=== PATIENT | male | born 1955 ===

== ENCOUNTER 2025-02-03 14:34 | Emergency (ER) | payer MEDICARE, SELFPAY ==
[2025-02-03 14:40] VITALS: BP 127/82; PULSE 110; RESP 18; TEMP 36.6; O2SAT 95
--- NOTE | 2025-02-03 14:41 | ED_ITS ---
HPI - General Adult General Chief complaint: Skin/Abscess/Foreign Body Stated complaint: bleeding around gtube History of Present Illness HPI narrative: This is a 69-year-old male presenting to the ED for bleeding around his G-tube site. Patient has no complaints at this time. G-tube was placed due to a cervical injury. Exam Narrative: APPEARANCE: No apparent distress. Head: atraumatic. EYES: EOMI, NOSE: Atraumatic NECK: Trachea midline RESPIRATORY: No increased rate of breathing CARDIOVASCULAR: RRR, ABDOMINAL: Soft nontender with no guarding or rebound -G-tube in place with very minimal red blood around the base. No active bleeding. MUSCULOSKELETAl: No obvious deformities NEURO: Alert. Moving 4/4 extremities SKIN:: Warm, dry. Normal color PSYCHIATRIC: Normal affect Medical Decision Making MDM Narrative Medical decision making narrative: -Course: 69-year-old male presenting for scant bleeding around his PEG tube insertion site. Wound was cleaned. No active bleeding. G-tube is flushed and working appropriately. No blood aspirated from the tube. Patient be discharged back to skilled nursing. Discharge Plan Discharge Clinical Impression: Gastrostomy tube in place Patient Disposition: Home Condition: Stable Instructions: Antibiotic Form, How to Use and Care for Your PEG Tube (DC) Additional Instructions: Scooby's G-tube is working appropriately. Minor bleeding is expected after gtube insertion. Please return to the ED if he develops worsening bleeding, coffee ground emesis, or sever abdominal pain. Patient Language: Japanese
--- NOTE | 2025-02-03 14:58 | PC.NURSE ---
Gtube flushed with 60ml of water without difficulty. No blood noted in contents aspirated
--- OUTSIDE RECORDS SUMMARY | 2025-02-03 15:00 | XMS_ITS | Referral Summary ---
Author Organization [facility] [address] [place] [id number] Care Team Providers Care Meter Tester Polyphase Name Role Phone Nicole Garcia NP Primary Care Provider [phone] Encounters Date Type Department Care Team Description 11/07/2024 10:30 AM MEDICAL COLLECTIONS REPRESENTATIVE Office Visit [facility] Diabetes and Endocrinology [address] [place] [id number] Tiffani Sen NP Type 2 diabetes mellitus with hyperglycemia, with long-term current use of insulin (HCC) (Primary Dx); Hypertension associated with type 2 diabetes mellitus (HCC); Hyperlipidemia associated with type 2 diabetes mellitus (HCC) from Last 3 Months Allergies No known active allergies Medications atorvastatin (LIPITOR) 40 mg tablet Take 1 tablet (40 mg total) by mouth every other day 4 Active lisinopriL (PRINIVIL,ZESTRI L) 5 mg tablet Take 1 tablet (5 mg total) by mouth daily 4 Active metoprolol XL (TOPROL-XL) 25 mg extended release tablet Take 1 tablet (25 mg total) by mouth daily [address] (PROTONIX) 40 mg EC tablet Take 1 tablet (40 mg total) by mouth daily 4 Active silver sulfadiazine (SILVADENE, SSD) 1 % cream Apply topically 2 (two) times a day 4 Active metFORMIN (GLUCOPHAGE) 1,000 mg tabletIndication s:Type 2 diabetes mellitus with hyperglycemia, with long-term current use of insulin (HCC) Take 1 tablet (1,000 mg total) by mouth 2 (two) times a day with meals 180 tablet 3 4 05/03/20 25 Active Additional Information Patient taking differently:1,000 mg oralDaily with breakfast, Reported on 11/07/2024 insulin glargine 100 unit/mL (3 mL) pen for injectionIndicat ions:Type 2 diabetes mellitus with hyperglycemia, with long-term current use of insulin (HCC) Inject 30 Units under the skin brush painter before breakfast 30 mL 3 4 05/03/20 Active insulin lispro (HumaLOG) 100 unit/mL pen for injectionIndicat ions:type 2 diabetes mellitus Inject 8-14 Units under the skin 2 (two) times a day before breakfast and dinner 30 mL 3 4 05/03/20 Active Additional Information Patient not taking.Reported on 11/07/2024 aspirin 81 mg enteric coated tablet Take 1 tablet (81 mg total) by mouth daily 4 Active glimepiride (AMARYL) 2 mg tablet Take 1 tablet (2 mg total) by mouth 4 Active pioglitazone (ACTOS) 30 mg tablet Take 1 tablet (30 mg total) by mouth daily 4 Active Active Problems Problem Noted Date Diagnosed Date Mixed conductive and sensori neural hearing loss of both ears 08/08/2024 External ear canal stenosis, acquired, bilateral 08/08/2024 Hypertension associated with type 2 diabetes tammie rezaus 05/03/2024 Assessment & Plan (11/07/2024 10:22 AM MEDICAL COLLECTIONS REPRESENTATIVE): Chronic problem. Controlled on current metoprolol XL 25mg daily. Assessment & Plan (07/25/2024 10:25 AM CDT): Chronic problem. Controlled on current metoprolol XL 25mg daily. Assessment & Plan (05/03/2024 11:01 AM CDT): Chronic problem. Controlled on current metoprolol XL 25mg daily. Will update labs today. Does not mychart. Verified phone #/address to contact re: results. Hyperlipidemia associated with type 2 diabetes sukhjinder elicia 05/03/2024 Assessment & Plan (11/07/2024 10:22 AM MEDICAL COLLECTIONS REPRESENTATIVE): Chronic problem. Currently taking atorvastatin 40mg every other day. Last lipid panel: 05/03/24 LDL=44, ID=[id number]. Assessment & Plan (07/25/2024 10:26 AM CDT): Chronic problem. Currently taking atorvastatin 40mg every other day. Last lipid panel: 05/03/24 LDL=44, XF=157. Assessment & Plan (05/03/2024 11:34 AM CDT): Chronic problem. Currently taking atorvastatin 40mg every other day. Last lipid panel: 03/31/23 LDL=20, IZ=923. Will update labs today. Does not mychart. Verified phone #/address to contact re: results. Type 2 diabetes mellitus wit h hyperglycemia, with long-term current use of insulin 01/19/2024 Assessment & Plan (11/07/2024 11:08 AM MEDICAL COLLECTIONS REPRESENTATIVE): Chronic problem. A1c uncontrolled and worsened from 9.8% 07/25/24 to now 12.9%. Afraid of lows--we'll drop down the insulin & sliding scale so he'll actually start using it again. Aware he needs to take the Humalog with meals. Take metformin TWICE daily Current medications: Metformin 1000mg with breakfast & dinner Glimepiride 2mg with breakfast Pioglitazone 30mg daily Lantus 30 units every morning Humalog 6 units before meals If your blood sugars are over 200: take 8 units If your blood sugars over 300: take 10 units DM eye due. Has never had. To call to set up. UTD on labs. Discussed with Scooby Blair: Strive for regular exercise (30min most days) and diet (get at least 4-5 servings of fruit and veggies daily, avoid processed foods, increase lean protein intake and decrease carb portions as well as fruit juices, regular soda & desserts). Watch carbs and simple sugars. Check the blood sugar: 3x/day. Check the feet daily for skin breakdown and infection. Assessment & Plan (07/25/2024 11:13 AM CDT): Chronic problem. A1c uncontrolled but improved from 12.8% 05/03/24 to now 9.8%. -go back to taking Metformin with breakfast & dinner -start using below scale for meal time (check blood sugar BEFORE eating & give appropriate insulin below). Current medications: Metformin 1000mg with breakfast & dinner Lantus 30 units every morning Humalog 8 units before breakfast & dinner If your blood sugars are over 200: take 12 units If your blood sugars over 300: take 14 units DM eye due. Has never had. To call to set up. UTD on labs. Discussed with Scooby Blair: Strive for regular exercise (30min most days) and diet (get at least 4-5 servings of fruit and veggies daily, avoid processed foods, increase lean protein intake and decrease carb portions as well as fruit juices, regular soda & desserts). Watch carbs and simple sugars. Check the blood sugar: 3x/day. Check the feet daily for skin breakdown and infection. Assessment & Plan (05/03/2024 11:42 AM CDT): Chronic problem. A1c uncontrolled but improved slightly from 13.7% 01/19/24 to now 12.8%. has not been taking meds according to Dr Tanner's MARLEN. Detailed instructions given on AVS. Do not take: actos/pioglitazone, Bydureon, glimepride. Lantus: take 30 units every morning (long acting) Humalog (short acting): take with breakfast & dinner. Check your blood sugar before you eat breakfast & dinner. Use sliding scale below. Current medications: Metformin 1000mg with breakfast & dinner Lantus 30 units every morning Humalog 8 units before breakfast & dinner If your blood sugars are over 200: take 12 units If your blood sugars over 300: take 14 units DM eye due. Has never had. To call to set up. Will update labs today. Does not mychart. Verified phone #/address to contact re: results. Discussed with Scooby Blair: Strive for regular exercise (30min most days) and diet (get at least 4-5 servings of fruit and veggies daily, avoid processed foods, increase lean protein intake and decrease carb portions as well as fruit juices, regular soda & desserts). Watch carbs and simple sugars. Check the blood sugar: 3x/day. Check the feet daily for skin breakdown and infection. Assessment & Plan (01/19/2024 1:06 PM CDT): Hba1c was Lab Results Component Value Date HGBA1C 13.7 01/19/2024 today, indicating very poor DM control Goal Hba1c under 7 and blood glucose level in the 120-160 range was explained Low carb diet and daily aerobic and /or resistant exercise were advised Prevention and treatment of hyypoglcyemia were discussed with the patient Blood glucose monitoring : Would recommend start CGM with Dexcom G7. The patient is very reluctant about he agrees on taking a trial. He was provided with sensors and a reader Adjustment to medications: Stopped Actos, glimepiride and Bydureon Continue metformin Increase Lantus insulin to 30 units HS Start Humalog ( meal time insulin,) 8 units before breakfast and dinner If your sugars are over 200, take 12 units If your sugars are over 300, take 14 units Patient advised to call in 1 or 2 weeks to let us know how he is doing with this regimen Social History Tobacco Use Types Packs/Day Years Used Date Smoking Tobacco: Never Smokeless Tobacco: Never Sex and Gender Information Value Date Recorded Sex Assigned at Not on file Legal Sex Male 11:20 PM MEDICAL COLLECTIONS REPRESENTATIVE Gender Identity Not on file Sexual Orientation Not on file Last Filed Vital Signs Vital Sign Reading Time Taken Comments Blood Pressure 122/84 11/07/2024 10:16 AM MEDICAL COLLECTIONS REPRESENTATIVE Pulse 80 11/07/2024 10:16 AM MEDICAL COLLECTIONS REPRESENTATIVE Temperature - - Respiratory Rate 18 11/07/2024 10:16 AM MEDICAL COLLECTIONS REPRESENTATIVE Oxygen Saturation - - Inhaled Oxygen Concentration - - Weight 93 kg (205 lb) 11/07/2024 10:16 AM MEDICAL COLLECTIONS REPRESENTATIVE Height 180.3 cm (5' 10.98 ) 11/07/2024 10:16 AM MEDICAL COLLECTIONS REPRESENTATIVE Body Mass Index 28.6 11/07/2024 10:16 AM MEDICAL COLLECTIONS REPRESENTATIVE Plan of Treatment Not on file Procedures Procedure Name Priority Date/Time Associated Diagnosis Comments POCT GLUCOSE Routine 11/07/2024 10:27 AM MEDICAL COLLECTIONS REPRESENTATIVE Type 2 diabetes mellitus with hyperglycemia, with long-term current use of insulin (HCC) POCT HEMOGLOBIN A1C Routine 11/07/2024 1 0:27 AM MEDICAL COLLECTIONS REPRESENTATIVE Type 2 diabetes mellitus with hyperglycemia, with long-term current use of insulin (HCC) LIPID PANEL Routine 05/03/2024 11:50 AM CDT Type 2 diabetes mellitus with hyperglycemia, with long-term current use of insulin (HCC) ALBUMIN CREATININE RATIO, URINE Routine 05/03/2024 11:50 AM CDT Type 2 diabetes mellitus with hyperglycemia, with long-term current use of insulin ([facility]) BASIC METABOLIC PANEL Routine 12/02/2023 10:40 AM MEDICAL COLLECTIONS REPRESENTATIVE from Last 3 Months or Most Recently Relevant to Health Maintenance Results * (ABNORMAL) POCT hemoglobin A1c (11/07/2024 10:27 AM MEDICAL COLLECTIONS REPRESENTATIVE) Hemoglobin A1C, POC 12.9 4.0 - 5.6 % Blood 11/07/2024 10:2 7 AM MEDICAL COLLECTIONS REPRESENTATIVE Tiffain Sen DEBURRING AND TOOLING MACHINE OPERATOR POINT OF CARE TEST ORDERA BLES Final Result * (ABNORMAL) POCT glucose (11/07/2024 10:27 AM MEDICAL COLLECTIONS REPRESENTATIVE) Glucose Blood, POC 394 mg/dL Blood 11/07/2024 10:2 7 AM MEDICAL COLLECTIONS REPRESENTATIVE Tiffani Sen NP POINT OF CARE TEST ORDERA BLES Final Result * (ABNORMAL) Albumin Creatinine Ratio, Urine (05/03/2024 11:50 AM CDT) Albumin Ur 130.8 mg/L Comment: Interpretive Data No reference range established. Current interpretive data was last revised 2019. Creatinine Ur 145.2 mg/dL CORRINE Comment: Interpretive Data No reference range established. Current interpretive data was last revised 2019. Albumin Creatinine Ratio, Ur 90(H) 1 - 29 mg/g CORRINE Urine 05/03/2024 11:5 0 AM CDT 05/03/2024 2:04 PM CDT us Tiffani Sen NP LAB URINE ORDERABLES Lola cain Result CORRINE RHOADES [id number] [place] [address] * (ABNORMAL) Lipid panel (05/03/2024 11:50 AM CDT) Cholesterol 132 30 - 199 mg/dL Comment: Interpretive Data Ages < or = 19 years Acceptable: <170 mg/dL Borderline high: 170-199 mg/dL High: >or= 200 mg/dL Ages > or = 20 years Desirable: <200 mg/dL Borderline high: 200-239 mg/dL High: >or= 240 mg/dL Literature References: 1. Expert Panel on Integrated Guidelines for Cardiovascular Health and Risk Reduction in Children and Adolescents. Pediatrics 2011;128:S213 2. NCEP Expert Panel. Circulation 2004;110:227 Current Interpretive Data was last revised on 2018. Triglycerides 218(H) <=149 mg/dL CORRINE RHOADES Comment: Interpretive Data Ages < or = 9 years Acceptable: <75 mg/dL Borderline high: 75-99 mg/dL High: >or= 100 mg/dL Ages 10 to 20 years Acceptable: <90 mg/dL Borderline high: 90-129 mg/dL High: >or= 130 mg/dL Ages > or = 20 years Desirable: <150 mg/dL Borderline high: 150-199 mg/dL High: 200-499 mg/dL Very high: >or= 499 mg/dL Literature References: 1. Expert Panel on Integrated Guidelines for Cardiovascular Health and Risk Reduction in Children and Adolescents. Pediatrics 2011;128:S213 2. NCEP Expert Panel. Circulation 2004;110:227 Current Interpretive Data was last revised on 2018. HDL 44 >=40 mg/dL CORRINE RHOADES Comment: Interpretive Data Ages < or = 19 years Acceptable: >45 mg/dL Borderline low: 40-45 mg/dL Low: <40 mg/dL Ages > or = 20 years Desirable: >or= 60 mg/dL Low: <40 mg/dL Literature References: 1. Expert Panel on Integrated Guidelines for Cardiovascular Health and Risk Reduction in Children and Adolescents. Pediatrics 2011;128:S213 2. NCEP Expert Panel. Circulation 2004;110:227 Current Interpretive Data was last revised on 2018. LDL, calculated 44 <=129 mg/dL CORRINE RHOADES Comment: Interpretive Data Ages < or = 19 years Acceptable: <110 mg/dL Borderline high: 110-129 mg/dL High: >or= 130 mg/dL Ages > or = 20 years Optimal: <100 mg/dL Near optimal: 100-129 mg/dL Borderline high: 130-159 mg/dL High: >160 mg/dL Literature References: 1. Expert Panel on Integrated Guidelines for Cardiovascular Health and Risk Reduction in Children and Adolescents. Pediatrics 2011;128:S213 2. NCEP Expert Panel. Circulation 2004;110:227 Current Interpretive Data was last revised on 2018. Non-HDL Cholesterol 88 mg/dL CORRINE RHOADES Comment: Interpretive Data Ages < or = 19 years Acceptable: <120 mg/dL Borderline high: 120-144 mg/dL High: >145 mg/dL Ages > or = 20 years When triglycerides are >200 mg/dL, Non-HDL cholesterol is a secondary target of therapy with treatment goals that are 30 mg/dL greater than the LDL cholesterol target. Literature References: 1. Expert Panel on Integrated Guidelines for Cardiovascular Health and Risk Reduction in Children and Adolescents. Pediatrics 2011;128:S213 2. NCEP Expert Panel. Circulation 2004;110:227 Current Interpretive Data was last revised on 2018. Chol/HDL ratio 3 CORRINE RHOADES Blood 05/03/2024 11:5 0 AM CDT 05/03/2024 2:01 PM CDT us Tiffani Sen DEBURRING AND TOOLING MACHINE OPERATOR LAB BLOOD ORDERABLES Lola l Result CORRINE RHOADES [id number] [place] [address] * (ABNORMAL) Basic metabolic panel (12/02/2023 10:40 AM MEDICAL COLLECTIONS REPRESENTATIVE) SCRIBED Sodium 138 136 - 145 mmol/L EXTERNAL LAB SCRIBED Potassium 4.5 3.5 - 5.1 mmol/L EXTERNAL LAB SCRIBED Chloride 101 10 - 108 mmol/L EXTERNAL LAB SCRIBED Carbon Dioxide 24.8 21.0 - 32.0 mmol/L EXTERNAL LAB SCRIBED Anion Gap 12.2 5.0 - 15.0 mmol/L EXTERNAL LAB SCRIBED Urea Nitrogen (BUN) 22(A) 7 - 18 mg/dl EXTERNAL LAB SCRIBED Creatinine 1.52(A) 0.50 - 1.20 mg/dl EXTERNAL LAB SCRIBED Glucose 368(A) 70 - 99 mg/dl EXTERNAL LAB SCRIBED Calcium 9.8 8.5 - 10.1 mg/dl EXTERNAL LAB SCRIBED eGFR in NonAfrican Norwegian 50 >90 - NA EXTERNAL LAB Blood 12/02/2023 10:4 0 AM MEDICAL COLLECTIONS REPRESENTATIVE us Historical Provider LAB BLOOD ORDERABLES Edit ed Result - Final EXTERNAL LAB from Last 3 Months or Most Recently Relevant to Health Maintenance Insurance [employer] Care Teams Meter Tester Polyphase Relationship Specialty Start Date End Date Nicole Garcia NP [address] [place] [address] [place] [address] PCP - General Family Practice 11/10/23
--- OUTSIDE RECORDS SUMMARY | 2025-02-03 15:00 | XMS_ITS | Clinical Summary ---
Author Organization [facility] [address] [place] [id number] Care Team Providers Care Explosive Ordnance Disposal Specialist Name Role Phone Nicole Garcia NP Primary Care Provider [phone] Allergies No known active allergies Medications atorvastatin [...] (HCC) Inject 30 Units under the skin dog track kennel manager before breakfast 30 mL 3 4 05/03/20 25 Active insulin lispro (HumaLOG) 100 unit/mL pen [...] Hypertension associated with type 2 diabetes tammie litus 05/03/2024 Assessment & Plan (11/07/2024 10:22 AM ARCHITECTURAL INSPECTOR): Chronic problem. Controlled on current metoprolol XL 25mg daily. Assessment & Plan (07/25/2024 10:25 AM CDT): Chronic problem. Controlled on current metoprolol XL 25mg daily. Assessment & Plan (05/03/2024 11:01 AM CDT): Chronic problem. Controlled on current metoprolol XL 25mg daily. Will update labs today. Does not mychart. Verified phone #/address to contact re: results. Hyperlipidemia associated with type 2 diabetes sukhjinder rubi 05/03/2024 Assessment & Plan (11/07/2024 10:22 AM ARCHITECTURAL INSPECTOR): Chronic problem. Currently taking atorvastatin 40mg every other day. Last lipid panel: 05/03/24 LDL=44, MR=600. Assessment & Plan (07/25/2024 10:26 AM CDT): Chronic problem. Currently taking atorvastatin 40mg every other day. Last lipid panel: 05/03/24 LDL=44, KM=874. Assessment & Plan (05/03/2024 11:34 AM CDT): Chronic problem. Currently taking atorvastatin 40mg every other day. Last lipid panel: 03/31/23 LDL=20, ID=[id number]. Will update labs today. Does not mychart. Verified phone #/address to contact re: results. Type 2 diabetes mellitus wit h hyperglycemia, with long-term current use of insulin 01/19/2024 Assessment & Plan (11/07/2024 11:08 AM ARCHITECTURAL INSPECTOR): Chronic problem. A1c uncontrolled and worsened from [...] how he is doing with this regimen Encounters Date Type Department Care Team Description 11/07/2024 10:30 AM ARCHITECTURAL INSPECTOR Office Visit [facility] Diabetes and Endocrinology [address] [place] [id number] Tiffani Sen, [place] Type 2 diabetes mellitus with hyperglycemia, with long-term current use of insulin (HCC) (Primary Dx); Hypertension associated with type 2 diabetes mellitus (HCC); Hyperlipidemia associated with type 2 diabetes mellitus (HCC) from Last 3 Months Surgical History Surgery Date Site/Laterality Comments ANKLE SURGERY LEG SURGERY HEART SURGERY CABG x4 Medical History Medical History Date Comments Diabetes (HCC) Hypertension Hyperlipidemia HL (hearing loss) Family History Medical History Relation Name Comments Diabetes Other uncle Diabetes Sister Relation Name Status Comments Other uncle Sister Social History Tobacco Use Types Packs/Day Years Used Date Smoking Tobacco: Never Smokeless Tobacco: Never Sex and Gender Information Value Date Recorded Sex Assigned at Not on file Legal Sex Male 11:20 PM ARCHITECTURAL INSPECTOR Gender Identity Not on file Sexual Orientation Not on file Obstetrics History Last Filed Vital Signs Vital Sign Reading Time Taken Comments Blood Pressure 122/84 11/07/2024 10:16 AM ARCHITECTURAL INSPECTOR Pulse 80 11/07/2024 10:16 AM ARCHITECTURAL INSPECTOR Temperature - - Respiratory Rate 18 11/07/2024 10:16 AM ARCHITECTURAL INSPECTOR Oxygen Saturation - - Inhaled Oxygen Concentration - - Weight 93 kg (205 lb) 11/07/2024 10:16 AM ARCHITECTURAL INSPECTOR Height 180.3 cm (5' 10.98 ) 11/07/2024 10:16 AM ARCHITECTURAL INSPECTOR Body Mass Index 28.6 11/07/2024 10:16 AM ARCHITECTURAL INSPECTOR Plan of Treatment Health Maintenance Due Date Last Done Comments Colon Cancer Screening-Colonoscopy 1956 Depression Screening 1956 Fall Risk Assessment 1956 Hepatitis C Screening 1956 Prostate Cancer Screening-PSA 1956 Dilated Eye Exam 1956 Hepatitis B Screening 1974 Pneumococcal vaccine 65+ (1 of 2 - PCV) 1975 Zoster Vaccine (1 of 2) 2006 Well Visit 65+ 2021 eGFR 12/02/2024 12/02/2023 Albumin Creatinine Ratio, Urine 05/03/2025 Foot Exam 05/03/2025 05/03/2024 Lipid Panel 05/03/2025 05/03/2024, 03/31/2023 Hemoglobin A1C 05/07/2025 11/07/2024, 1010/2023, 05/03/2024, Additional history exists Influenza Vaccine (Season Ended) 2025 08/09/20 18 DTaP/Tdap/Td Vaccine (2 - Td or Tdap) 03/30/2029 03/30/2019 Procedures Procedure Name Priority Date/Time Associated Diagnosis Comments POCT GLUCOSE Routine 11/07/2024 10:27 AM ARCHITECTURAL INSPECTOR Type 2 diabetes mellitus with hyperglycemia, with long-term current use of insulin (HCC) POCT HEMOGLOBIN A1C Routine 11/07/2024 1 0:27 AM ARCHITECTURAL INSPECTOR Type 2 diabetes mellitus with hyperglycemia, with long-term current use of insulin (HCC) LIPID PANEL Routine 05/03/2024 11:50 AM CDT Type 2 diabetes mellitus with hyperglycemia, with long-term current use of insulin (HCC) ALBUMIN CREATININE RATIO, URINE Routine 05/03/2024 11:50 AM CDT Type 2 diabetes mellitus with hyperglycemia, with long-term current use of insulin (HCC) BASIC METABOLIC PANEL Routine 12/02/2023 10:40 AM ARCHITECTURAL INSPECTOR from Last 3 Months or Most Recently Relevant to Health Maintenance Results * (ABNORMAL) POCT hemoglobin A1c (11/07/2024 10:27 AM ARCHITECTURAL INSPECTOR) [facility] Hemoglobin A1C, POC 12.9 4.0 - 5.6 % Blood 11/07/2024 10:2 7 AM ARCHITECTURAL INSPECTOR Tiffanichelle Sen MEDICAL ANTHROPOLOGY DIRECTOR POINT OF CARE TEST ORDERA BLES Final Result * (ABNORMAL) POCT glucose (11/07/2024 10:27 AM ARCHITECTURAL INSPECTOR) Glucose Blood, POC 394 mg/dL Blood 11/07/2024 10:2 7 AM ARCHITECTURAL INSPECTOR us Tiffanichelle Sen MEDICAL ANTHROPOLOGY DIRECTOR POINT OF CARE TEST ORDERA BLES Final Result * (ABNORMAL) Albumin Creatinine Ratio, Urine (05/03/2024 11:50 AM CDT) Albumin Ur 130.8 mg/L Comment: Interpretive Data No reference range established. Current interpretive data was last revised 2019. Creatinine Ur 145.2 mg/dL CORRINE RHOADES Comment: Interpretive Data No reference range established. Current interpretive data was last revised 2019. Albumin Creatinine Ratio, Ur 90(H) 1 - 29 mg/g CORRINE RHOADES Urine 05/03/2024 11:5 0 AM CDT 05/03/2024 2:04 PM CDT us Tiffani Sen NP LAB URINE ORDERABLES Lola l Result CORRINE [id number] [facility] [place] [address] * (ABNORMAL) Lipid panel (05/03/2024 11:50 AM [...] on 2018. Triglycerides 218(H) <=149 mg/dL CORRINE Comment: Interpretive Data Ages < or = [...] 05/03/2024 2:01 PM CDT us Tiffani Sen NP LAB BLOOD ORDERABLES Lola cain Result CORRINE [address] [facility] [place] [address] * (ABNORMAL) Basic metabolic panel (12/02/2023 10:40 AM ARCHITECTURAL INSPECTOR) SCRIBED Sodium 138 136 - 145 mmol/L [...] mg/dl EXTERNAL LAB SCRIBED eGFR in NonAfrican French 50 >90 - NA EXTERNAL LAB Blood 12/02/2023 10:4 0 AM ARCHITECTURAL INSPECTOR us Historical Provider LAB BLOOD ORDERABLES Edit ed Result - Final EXTERNAL LAB from Last 3 Months or Most Recently Relevant to Health Maintenance Insurance [facility] MEDICARE ADVANTAGE [facility] MEDICARE ADVANTAGE Care Teams Explosive Ordnance Disposal Specialist Relationship Specialty Start Date End Date Nicole Garcia NP [address] [place] [address] [place] [address] PCP - General Family Practice 11/10/23
--- OUTSIDE RECORDS SUMMARY | 2025-02-03 15:01 | XMS_ITS | Encounter Summary ---
Author Organization [facility] Address Formerly [facility] [place] [address] Care Team Providers Care Trackman Name Role Phone Adolfo Koo MD Unavailable [phone] Nicole Garcia LAP MAKER Primary Care Provider [phone] Reason for Referral * Surgical (Routine) - Closed Specialty Diagnoses / Procedures Referred By Contac t Referred To Contact SURGERY Diagnoses Encounter for screening for malignant neoplasm of colon Screening for malignany neoplasm of colon Procedures Case request operating room: COLONOSCOPY DIAGNOSTIC WITH/WITHOUT SPECIMEN BRUSH/WASH, POSSIBLE POLYPECTOMY, POSSIBLE BIOPSY T/F 1ST CASE [id number] Colonoscopy Pasquale Hutchins MD [facility] [address] , [address] [place] [address] Phone: tel: fax: Referral ID Status Reason Start Date Expiration Date Visits Re quested Visits Authorized [id number] Closed 04/21/2022 05/21/2023 1 1 Encounter Details Date Type Department Care Team (Late st Contact Info) Description 04/21/2022 Prep for Procedure [facility] [address] [address] , [address] [place] [address] Pasquale Hutchins MD Social History Tobacco Use Types Packs/Day Years Used Date Smoking Tobacco: Former Cigarettes 1 969 - 1969 Smokeless Tobacco: Never Alcohol Use Standard Drinks/Week Comments Yes 0 (1 standard drink = 0.6 oz pur e alcohol) 6 week PHQ-2 Answer Date Recorded PHQ-2 Score - If the patient scores above 3, please move on to questions 3-9 0 04/01/2022 Sex and Gender Information Value Date Recorded Sex Assigned at Male 01/19/2025 7:45 PM CDT Legal Sex Male 5:01 PM CDT Gender Identity Not on file Sexual Orientation Not on file 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 No / Unsure 04/01/2022 9:42 AM CDT documented as of this encounter Plan of Treatment Upcoming Encounters Date Type Department Care Team (Late st Contact Info) Description 02/08/2025 9:00 AM CDT Office Visit [facility] - [address] [place] [phone] Devan Henderson, DPM [address] [place] [address] 04/03/2025 10:20 AM CDT Office Visit [address] [place] [address] Nicole Garcia [address] [place] [address] 05/11/2025 10:00 AM CDT Office Visit [facility] [address] [place] [address] Sorin Ram MD [address] [facility] [address] [address] Scheduled Orders Name Type Priority Associated Diagnoses Orde r Schedule Case request operating room: COLONOSCOPY DIAGNOSTIC WITH/WITHOUT SPECIMEN BRUSH/WASH, POSSIBLE POLYPECTOMY, POSSIBLE BIOPSY T/F 1ST CASE Case Request Routine Encounter for screening for malignant neoplasm of colon Ordered: 04/21/2022 [facility] SARS-COV RNA QUAL NAAT Microbiology Routine Encounter for screening for malignant neoplasm of colon Expected: 04/21/2022, Expires: 04/21/2023 documented as of this encounter Visit Diagnoses Diagnosis Encounter for screening for malignant neoplasm of colon- Primary Special screening for malignant neoplasms, colon Pre-op testing Preoperative examination, unspecified documented in this encounter Additional Health Concerns Infection Onset Date Last Indicated Resolved Time COVID-19 Rule Out 04/21/2022 04/21/2022 04/28/2022 12:32 AM CDT Assessment Noted Time PHQ-9 Depression Total Score: 0 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
--- OUTSIDE RECORDS SUMMARY | 2025-02-03 15:01 | XMS_ITS | Encounter Summary ---
Author Organization [facility] Address Formerly [facility] [place] [address] Care Team Providers Care Tire Room Supervisor Name Role Phone Adolfo Koo MD Unavailable [phone] Nicole Garcia CREDIT AND COLLECTION MANAGER Primary Care Provider [phone] Reason for Referral * (Routine) - Canceled Specialty Diagnoses / Procedures Referred By Contac t Referred To Contact Procedures DIRECTOR OF MEDICARE eval and treat Ludwig Saucedo MD 1 [place] [address] Phone: tel: fax: Referral ID Status Reason Start Date Expiration Date V isits Requested Visits Authorized [id number] Canceled 02/01/2025 02/01/2026 1 1 * Imaging (Urgent) - New Request Specialty Diagnoses / Procedures Referred By Contac t Referred To Contact Procedures IR PERC HUI CATH PLCMNT Naya Gonzalez MD 1 [place] [address] Phone: tel: fax: Referral ID Status Reason Start Date Expiration Date V isits Requested Visits Authorized [id number] New Request 01/25/2025 01/25/2026 1 1 * Imaging (Emergency) - New Request Specialty Diagnoses / Procedures Referred By Contac t Referred To Contact RADIOLOGY Procedures CT HEAD WO CON Robin Sharma NP [address] [address] Phone: tel: fax: Referral ID Status Reason Start Date Expiration Date V isits Requested Visits Authorized [id number] New Request 01/24/2025 01/24/2026 1 1 * (Routine) - Canceled Specialty Diagnoses / Procedures Referred By Contac t Referred To Contact Procedures DIRECTOR OF MEDICARE eval and treat Renee Hannon PA-C [address] [place] [phone] Phone: tel: fax: Referral ID Status Reason Start Date Expiration Date V isits Requested Visits Authorized [id number] Canceled 01/20/2025 01/20/2026 1 1 * Imaging (Urgent) - New Request Specialty Diagnoses / Procedures Referred By Contac t Referred To Contact RADIOLOGY Procedures MRI CERV SPINE WO CON Obinna Gibbs MD [address] [place] [phone] Phone: tel: fax: Referral ID Status Reason Start Date Expiration Date V isits Requested Visits Authorized New Request 01/20/2025 01/20/2026 1 1 * Imaging (Urgent) - New Request Specialty Diagnoses / Procedures Referred By Contac t Referred To Contact RADIOLOGY Procedures MRI BRAIN WO CON Obinna Gibbs MD [address] [place] [phone] Phone: tel: fax: Referral ID Status Reason Start Date Expiration Date V isits Requested Visits Authorized New Request 01/20/2025 01/20/2026 1 1 * Imaging (Emergency) - New Request Specialty Diagnoses / Procedures Referred By Contac t Referred To Contact RADIOLOGY Procedures USE ECHOCARDIOGRAM Renee Hannon PA-C [address] [address] Phone: tel: fax: Referral ID Status Reason Start Date Expiration Date V isits Requested Visits Authorized New Request 01/20/2025 01/20/2026 1 1 * Imaging (Emergency) - New Request Specialty Diagnoses / Procedures Referred By Contac t Referred To Contact RADIOLOGY Procedures CT HEAD WO CON Renee Hannon PA-C [address] [place] [phone] Phone: tel: fax: Referral ID Status Reason Start Date Expiration Date V isits Requested Visits Authorized New Request 01/20/2025 01/20/2026 1 1 * Imaging (Emergency) - New Request Specialty Diagnoses / Procedures Referred By Contac t Referred To Contact RADIOLOGY Procedures CTA HEAD+NECK Renee Hannon PA-C [address] [place] [phone] Phone: tel: fax: Referral ID Status Reason Start Date Expiration Date V isits Requested Visits Authorized [id number] New Request 01/20/2025 01/20/2026 1 1 * Imaging (Emergency) - New Request Specialty Diagnoses / Procedures Referred By Contac t Referred To Contact RADIOLOGY Procedures CT CHEST+ABD+PEL W CON Romulo German MD [address] [address] Phone: tel: fax: Referral ID Status Reason Start Date Expiration Date V isits Requested Visits Authorized New Request 01/19/2025 01/19/2026 1 1 * Imaging (Emergency) - New Request Specialty Diagnoses / Procedures Referred By Contac t Referred To Contact RADIOLOGY Procedures CTA NECK Romulo German MD [address] [address] Phone: tel: fax: Referral ID Status Reason Start Date Expiration Date V isits Requested Visits Authorized New Request 01/19/2025 01/19/2026 1 1 * (Routine) - Canceled Specialty Diagnoses / Procedures Referred By Contac t Referred To Contact Procedures OT eval and treat Phylicia Howard NP [address] [place] [address] Phone: tel: fax: Referral ID Status Reason Start Date Expiration Date V isits Requested Visits Authorized Canceled 01/19/2025 01/19/2026 1 1 * (Routine) - Canceled Specialty Diagnoses / Procedures Referred By Contac t Referred To Contact Procedures PT eval and treat Phylicia Howard NP [address] [place] [address] Phone: tel: fax: Referral ID Status Reason Start Date Expiration Date V isits Requested Visits Authorized Canceled 01/19/2025 01/19/2026 1 1 Reason for Visit * Reason Comments Trauma * Auth/Cert (Routine) Specialty Diagnoses / Procedures Referred By Contac t Referred To Contact Diagnoses Fall C2 cervical fracture ([facility]) Closed C2 fracture ([facility]) FALL Procedures N/A Phylicia Howard NP [address] [place] [address] Phone: tel: fax: Referral ID Status Reason Start Date Expiration Date Visits Re quested Visits Authorized [id number] 1 1 Encounter Details Date Type Department Care Team (Latest Contact Info) Description 01/19/2025 7:05 PM CDT - 02/02/2025 2:33 PM CDT Hospital Encounter [facility] [address] [place] [address] Pio Brown MD [address] [place] [address] Phylicia Howard NP [address] [place], [place] [phone] Romulo German MD [address] [address] Sandra Ray, DO [address] [address] Emiliano Donaldson MD [address] [place] [phone] Naya Gonzalez MD 1 [place] [address] Devonte Kohler MD [address] [place] [address] Duy Stephenson MD 1 [place] [address] Ludwig Saucedo MD [address] [place] [address] Trauma Discharge Disposition: [facility] Facility Social History Tobacco Use Types Packs/Day Years Used Date Smoking Tobacco: Former Cigarettes 1969 Smokeless Tobacco: Never Alcohol Use Standard Drinks/Week Comments Not Currently 0 (1 standard drink = 0.6 oz pur e alcohol) quit before 2021 [facility] Utilities Answer Date Recorded In the past 12 months has e [employer], gas, oil, or water company threatened to shut off services in your home? No 01/21/2025 Humiliation, Afraid, Rape, and Kick questionnair e Answer Date Recorded Within the last year, have y ou been afraid of your partner or ex-partner? No 01/21/2025 Within the last year, have y ou been humiliated or emotionally abused in other ways by your partner or ex-partner? No Within the last year, have y ou been kicked, hit, slapped, or otherwise physically hurt by your partner or ex-partner? No 01/21/2025 Within the last year, have y ou been raped or forced to have any kind of sexual activity by your partner or ex-partner? No 01/21/2025 Overall Financial Resource Strain (CARDIA) Answe r Date Recorded How hard is it for you to pa y for the very basics like food, housing, medical care, and heating? Not hard at all 01/21/2025 PHQ-2 Answer Date Recorded Patient Health Questionnaire-2 Score 0 11/01/2024 Hunger Vital Sign Answer Date Recorded Within the past 12 months, y ou worried that your food would run out before you got the money to buy more. Never true 01/22/20 25 Within the past 12 months, t he food you bought just didn't last and you didn't have money to get more. Never true 01/21/2025 PRAPARE - Transportation Answer Date Re corded In the past 12 months, has l ack of transportation kept you from medical appointments or from getting medications? No 12/25 In the past 12 months, has l ack of transportation kept you from meetings, work, or from getting things needed for daily living? No 01/21/2025 Housing Stability Vital Sign Answer Ru e Recorded In the last 12 months, was t here a time when you were not able to pay the mortgage or rent on time? No 03/19/2023 In the last 12 months, how many places have you lived? 1 03/19/2023 In the last 12 months, was t here a time when you did not have a steady place to sleep or slept in a halfway (including now)? No 03/19/2023 Housing Stability Vital Sign Answer Ru e Recorded In the last 12 months, was t here a time when you were not able to pay the mortgage or rent on time? No 01/21/2025 In the past 12 months, how m any times have you moved where you were living? 0 01/21/2025 At any time in the past 12 m [facility], were you homeless or living in a halfway (including now)? 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 Not on file Not on file Not on file documented as of this encounter Last Filed Vital Signs Vital Sign Reading Time Taken Comments Blood Pressure 115/70 02/02/2025 11:18 AM CDT Pulse 91 02/02/2025 11:18 AM CDT Temperature 36.8 C (98.3 F) 02/02/2025 11:18 AM CDT Respiratory Rate 18 02/01/2025 3:39 AM CDT Oxygen Saturation 95% 02/02/2025 11:18 AM CDT Inhaled Oxygen Concentration - - Weight 85.4 kg (188 lb 4.4 oz) 01/27/2025 4:00 A M CDT Height 180.3 cm (5' 11 ) 01/19/2025 7:15 PM CDT Body Mass Index 26.26 01/19/2025 7:15 PM CDT documented in this encounter Functional Status * Question Answer Date of Assessment Author Status Do you have serious difficul ty walking or climbing stairs? No 01/19/2025 10:00 PM CDT Jayden Barrios RN Active * Question Answer Date of Assessment Author Status Do you have difficulty dressing or bathing? No 01/19/2025 10:00 PM CDT Jayden Barrios RN Ac tive Because of a physical, menta l, or emotional condition, do you have difficulty doing errands alone such as visiting a doctor's office or shopping? No 01/19/2025 10:00 PM CDT Kolton Barrios RN Active * Are you deaf or do you have serious difficulty hearing Answer Date of Assessment Author Status No 01/19/2025 10:00 PM DONTET Jayden Barrios RN Active * Are you blind or do you have serious difficulty seeing, even when wearing glasses? Answer Date of Assessment Author Status No 01/19/2025 10:00 PM DONTET Jayden Barrios RN Active * Do you have serious difficulty walking or climbing stairs? Answer Date of Assessment Author Status No 01/19/2025 10:00 PM DONTET Jayden Barrios RN Active * Do you have difficulty dressing or bathing? Answer Date of Assessment Author Status No 01/19/2025 10:00 PM CDT Jayden Barrios RN Active * Because of a physical, mental, or emotional condition, do you have difficulty doing errands alone such as visiting a doctor's office or shopping? Answer Date of Assessment Author Status No 01/19/2025 10:00 PM CDT Jayden Barrios RN Active documented as of this encounter Mental Status * Question Answer Entry Date Author Status Because of a physical, menta l, or emotional condition, do you have serious difficulty concentrating, remembering, or making decisions? No 01/19/2025 10:00 PM CDT Jayden Barrios RN Activ e * Because of a physical, mental, or emotional condition, do you have serious difficulty concentrating, remembering, or making decisions? Answer Entry Date Author Status No 01/19/2025 10:00 PM DONTET Jayden Barrios RN Active documented in this encounter Discharge Summaries * Ludwig Saucedo MD - 02/02/2025 10:21 AM CDT Patient ID: Олег Watson [id number] 69-year-old 1955 Admit date: 01/19/2025 Expected Discharge Date: 02/02/2025 Primary care Physician: DONNIE TIMMONS Admitting Physician: Devonte Kohler MD Discharge Physician: LUDWIG SAUCEDO MD Admission Diagnoses: Fall [W19.XXXA] C2 cervical fracture ([facility]) [S12.100A] Closed C2 fracture ([facility]) [S12.100A] Discharge Diagnoses: ischemic stroke Past Medical History Past Medical History: Diagnosis Date Acute myocardial infarction ([facility]) Ankle fracture Closed; fracture left fibula Chest pain Closed fracture of distal end of fibula 05/18/2013 Date Onset: 05/18/2013 Coronary artery disease Diabetes ([facility]) Diabetes mellitus, type 2 ([facility]) Diabetic ketoacidosis without coma associated with diabetes mellitus due to underlying condition ([facility]) 03/19/2023 DKA (diabetic ketoacidosis) ([facility]) 03/19/2023 Essential hypertension 07/26/2018 Eustachian tube dysfunction 06/13/2015 Date Onset: 06/13/2015 HLD (hyperlipidemia) Hx of CABG Microalbuminuria Myocardial infarction ([facility]) 07/11/2018 Non-rheumatic mitral regurgitation Noncompliance with medication regimen 12/24/2021 Situational stress 06/13/2015 Past Surgical History: Procedure Laterality Date 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 Hutchins [facility], next scope 5 yr Reason for admission: ischemic stroke Brief Hospital Course: Олег Watson is a 69-year-old male with PMH of uncontrolled type 2 diabetes mellitus, HTN, MA, CABG, and mitral regurgitation presented to ED on 01/19/2025 as a category 3 trauma with ground-level fall. He was found to have chronic C2 fracture, no acute injuries. Stat stroke was called on 01/20/2025nd MRI brain demonstrated left-sided ischemic stroke in the basal ganglia and adjacent temporal lobe. Patient was evaluated by neurovascular team, ortho-spine, and PM&R. He failed bedside swallow and also failed DIRECTOR OF MEDICARE eval. Currently has Keofed with tube feeds, DIRECTOR OF MEDICARE continues to follow for advancing diet versus PEG tube. PT/OT recommending inpatient rehab, referrals have been sent by case management. Hospitalist team was contacted on 01/24/2025 to take over as primary service. Patient reports he has been feeling okay. He reports discomfort from the c- collar which he contributes to his difficulty swallowing. He wants to be able to eat, but is agreeable to PEG tube if needed. Denies headaches or dizziness. Denies chest pain, palpitations, and shortness of breath. No home oxygen. Reports he lives alone and manages his Lantus and lispro at home. Denies abdominal pain, nausea, vomiting, diarrhea, and black/bloody stools. No known allergies. Full code. Discussed with case management, reports patient was evaluated for [place] inpatient rehab yesterday and is likely a good candidate pending nutrition status. Currently with Keofed, DIRECTOR OF MEDICARE to evaluate today, possible LOY. Patient will need advanced diet or PEG for inpatient rehab placement. Labs today demonstrate normal electrolytes, serum glucose remains elevated at 323. POC glucose remains elevated 200-500. Normal Mg, normal Phos. WBC 10.93. HbA1c 12.3% on 01/19/2025. C-spine x-ray from 01/19/2025 demonstrated known C2 fracture not well depicted radiographically, no significant cortical step-off seen involving the C2 vertebrae. CTA neck from 01/19/2025 demonstrated ununited comminuted fracture of the base of the odontoid with 3 to 4 mm anterior displacement of the odontoid with respect to the body of C2 with diastases on thefracture line with adjacent mildly displaced fracture fragments. Widening interspinous distance at C1-C2. No vascular injury or extravasation. Atherosclerotic calcifications in the aortic arch and distal left common carotid artery extending into the origin of left external carotid artery and minimally at the origin of the left carotid bulb with less than 50% stenosis. No hemodynamically significant stenosis or aneurysm in the cervical internal carotid arteries. Intracranial right vertebral artery appears to terminate as the right posterior inferior cerebral artery, a developmental variant. 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 origin of right posterior cerebral artery from the supraclinoid right internal carotid artery with developmental hypoplasia of the right P1 segment of the basilar tip. Severe hypoplasia or less likely atherosclerotic stenosis of the A1 segment of right anterior cerebral artery. Right A2 segment is supplied predominantly from the left anterior cerebral artery via the anterior communicating artery. CT chest/abdomen/pelvis from 01/19/2025 demonstrated no acute traumatic injury to the thoracic or abdominal aorta. No pneumothorax. No congestion or pneumonia or pleural effusion. Opacification of thelingula and left lower lobe seen on trauma chest radiograph now seen to be superposition of large left pericardial fat pad and elevated left diaphragm. Chronic findings suggestive of bronchitis or bronchiolitis. No acute fracture in the bony thorax. No acute fracture in the thoracolumbar spine, pelvis, or hips. Old wedge compression deformity T10. CT head (stroke protocol) from 01/20/2025 demonstrated no acute intracranial process. Cortical atrophy and small vessel disease. 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 CTA head/neck from 01/20/2025 demonstrated no acute or significant cervicocerebral vascular abnormality. Numerous congenital variants. Probable chronic nonunited type II odontoid fracture. Chronic/nonemergent findings. MRI brain from 01/20/2025 demonstrated small acute left-sided strokes in the left basal ganglia and adjacent temporal lobe. Possible additional stroke in the inferomedial left temporal lobe. Volume loss and probable small vessel disease. Calvarial contour abnormality correlated with prior trauma. MRI C-spine from 01/20/2025 demonstrated no convincing evidence of cord contusion, however significant artifact predominantly related patient motion significantly limited evaluation. Chronic nonunitedC2 fracture. TTE from 01/21/2025 demonstrated EF 63%. Trace mitral regurg. Trace pulmonic regurg. Problem Based course: 1. Chronic C2 fracture, ground-level fall 01/19/2025 Admitted by trauma service, transition to hospitalist 01/24/2025 [facility] cervical collar at all times per ortho-spine PT/OT recommending inpatient rehab, referrals pending Pain control CBC, BMP tomorrow a.m. Fall precautions Wean oxygen as tolerated No evidence of rhabdomyolysis Outpatient follow-up with Dr. Montanez 2. Acute ischemic stroke, RUE/RLE weakness, dysarthria, dysphagia Left basal ganglia and adjacent temporal lobe small acute strokes on MRI from 01/20/2025 Failed bedside swallow, NPO per DIRECTOR OF MEDICARE, note plan for LOY this week if continues to fail swallow study Meds per [facility] dietitian consulted for tube feeds, appreciate their recommendations -- Daily CBC,BMP, Mg, and Phos Strict I&O Stroke team following, appreciate their recommendations PM&R following, appreciate their recommendations, awaiting improvement in advance diet versus PEG for inpatient rehab Continue ASA and statin Monitor on telemetry Routine neurochecks Routine VS PT/OT recommending inpatient rehab, referrals pending 3. Uncontrolled type II diabetes Patient's home regimen includes Lantus and lispro, patient reports compliance Most recent HbA1c 12.3% from 01/19/2025 [facility] endocrinology consulted, appreciate their recommendations Accucheck every 4 hours Continue Lantus 12 units at bedtime & lispro per sliding scale until evaluated by endocrinology Hypoglycemia protocol NPO until cleared by speech 4. HTN Continue to monitor hypertension with VS every 4 hours Continue lisinopril, metoprolol tartrate 5. Hx MA, CABG, mitral regurgitation Add complexity to case repairer on telemetry Body mass index is 28.73 kg/m??. DVT prophylaxis: Lovenox every 12 hours CODE STATUS: Full code Consults: neurology Procedures/Significant Diagnostic Studies: Discharged Condition: good Code Status: Full Code Discharge Exam: Patient was seen and examined on day of discharge, vitals were stable. Significant Diagnostic Studies: Lab Results Component Value Date CHOL 137 01/21/2025 TRI 137 01/21/2025 HDL 38 (L) 01/21/2025 LDL 72 01/21/2025 NA 140 01/30/2025 K 4.1 01/30/2025 CL 106 01/30/2025 CO2 31.8 01/30/2025 BUN 23 (H) 01/30/2025 CR 1.19 01/30/2025 CA 9.2 01/30/2025 GLU 173 (H) 01/29/2025 AGAP 2.2 01/30/2025 TP 7.1 01/26/2025 ALB 2.3 (L) 01/26/2025 AST 27 01/26/2025 ALT 22 01/26/2025 WBC 8.33 01/29/2025 HGB 12.2 01/30/2025 PLT 217 01/29/2025 HGBA1C 12.3 (H) 01/19/2025 TSH 1.970 03/31/2023 INR Date Value Ref Range Status 01/29/2025 1.2 (H) 0.8 - 1.1 Final CTA NECK Addendum Date: 01/21/[address] exam was performed using one or more of the following dose reduction techniques: automated exposure control, adjustment of the mA and/or kV according to patient size, the use of iterative reconstruction technique, use of ALARA (As Low As Reasonably Achievable) and/or use of Image Gently techniques. Referred By: ISAK KANG Interpreted By: Maria G Gilbert MD, 01/21/2025 11:25 AM Result Date: 01/21/[address] [address] EXAMINATION: CTA Neck Without and With Intravenous Contrast. Axial imaging, with 2-D Coronal and Sagittal Reconstructions and 3-D MIP and 3-D Volume Rendered Reconstructions. 3-D images were obtained on an independent workstation. 100 mL Isovue-370 was administered intravenously for the post- contrast images. Carotid stenosis evaluation is based on NASCET criteria. INDICATION: Fracture of the odontoid. COMPARISON: None. FINDINGS: Classic 3 vessel aortic arch anatomy. Atherosclerotic calcifications in the aortic arch and into the descending thoracic aorta. The left vertebral artery is dominant. Mild atherosclerotic calcifications and distal left common carotid artery extending into the origin of left external carotid artery and minimally at the origin of the left carotid bulb with difficulty evaluating the degree of stenosis of the origin of the left external carotid artery but with good opacification of the left external carotid artery distal to the dense calcification at its origin. No hemodynamically significant stenosis or aneurysm of the great vessels, common carotids, or the cervical internalcarotid and vertebral arteries. No vascular injury or extravasation is seen. 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 There is also origin of the right posterior cerebral artery from the supraclinoid right internal carotid artery with developmental hypoplasia of the right P1 segment of the basilar tip, also developmental variant. There is severe hypoplasia of the basilar artery proximal to the persistent trigeminal artery. There is severe developmental hypoplasia or less likely atherosclerotic stenosis of the A1 segment of right anterior cerebral artery. The right A2 segment is supplied predominantly from the left anterior cerebral artery via the anterior communicating artery. The left posterior communicating artery is not visualized. Atherosclerotic calcifications are seen in bilateral distal intracranial internal carotid arteries with less than 50% stenosis. There is an ununited comminuted fracture of the base of the odontoid with 3 to 4 mm anterior displacement of the odontoid with respect to the body of C2 with diastases on the fracture line with adjacent mildly displaced fracture fragments. There is widening of the interspinous distance at C1-C2. No vascular injury or extravasation is seen. There is rightward curvature of cervical spine with preservation of cervical lordosis. No suspicious neck mass or abnormal enhancement. No pathologic lymphadenopathy. No acute osseous abnormality. There is generalized age-appropriate atrophy with [id number] nonspecific patchy hypodensity in the periventricular and deep cerebral white matter in the partially included bilateral deep cerebral white matter, likely nonspecific chronic white matter microvascular disease. Please refer to the CT chest examof same date regarding the intrathoracic findings. IMPRESSION: 1. Ununited comminuted fracture of the base of the odontoid with 3 to 4 mm anterior displacement of the odontoid with respect to the body of C2 with diastases on the fracture line with adjacent mildly displaced fracture fragments. There is widening of the interspinous distance at C1-C2.2. No vascular injury or extravasation. 3. Atherosclerotic calcifications in the aortic arch and distal left common carotid artery extending into the origin of left external carotid artery and minimally at the origin of the left carotid bulb with less than 50% stenosis. No hemodynamically significant stenosis or aneurysm in the cervical internal carotid arteries. 4. 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 5. 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 6. 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 7. Severe hypoplasia or less likely atherosclerotic stenosis of the A1 segment of right anterior cerebral artery. The right A2 segment is supplied predominantly from the left anterior cerebral artery via the anterior communicating artery. 8. Please see above report for the other findings. Referred By: ISAK KANG Interpreted By: Maria G Gilbert MD, 01/19/2025 8:47 PM MRI CERV SPINE WO CON Result Date: 01/21/[address] [address] EXAMINATION: MRI OF THE CERVICAL SPINE WITHOUT CONTRAST INDICATION: Concern for cord contusion. COMPARISON: CTA head and neck on 01/20/2025. TECHNIQUE: Multiplanar and multi-sequential MRI examination of the cervical spine was performed without contrast. FINDINGS: Notable imaging artifact limiting this evaluation. There is exaggerated lordosis of the cervical spine, favored to be positional. No evidence of significant spondylolisthesis. There is multilevel minimal intervertebral disc space narrowing and associated endplate degenerative changes. There is a chronic nonunited C2 fracture with fluid in the fracture cleft. Evaluation for cord signal abnormality is limited due to extensive artifact (predominantly due to patient motion). No convincing evidence of a cord contusion is seen. The craniovertebral junction is normal. Individual disk levels are as follows: C2-3: Minimal central protrusion with uncovertebral and facet arthropathy. No significant spinal canal or neural foraminal stenosis. C3-4: Minimal disc osteophyte complex without significant spinal canal or neural foraminal stenosis. C4-5: Mild disc bulge with minimal uncovertebral and facet arthropathy. Mild spinal canal stenosis. Mild bilateral neural foraminal stenoses. C5-6: Mild disc bulge with uncovertebral and facet arthropathy andligamentous thickening. Mild spinal canal stenosis. [id number] bilateral neural foraminal stenoses. C6-7: Minimal disc bulge with facet arthropathy. No significant spinal canal stenosis. No convincing evidence of significant neural foraminal stenosis though artifact limits accurate characterization. C7-T1: No evidence of significant spinal canal or neural foraminal stenosis. IMPRESSION: 1. No convincing evidence of cord contusion, however significant artifact (predominantly related to patient motion) significantly limits this evaluation. 2. Chronic nonunited C2 fracture.Ordered By: OBINNA GIBBS Interpreted By: Bryan Vogel MD, 01/21/2025 7:05 AM MRI BRAIN WO CON Result Date: 01/20/2025 [facility] [address] [place], [place] [address] EXAM: MRI BRAIN WO CON DATE: 01/20/2025 COMPARISON: None. Head CT from earlier today. INDICATION: Stroke TECHNIQUE: Noncontrast multiplanar multisequence imaging. Routine priority exam. FINDINGS: There are abnormal diffusion findings consistent with acute strokes. The 2 larger findings are in the posterior left basal ganglia and the adjacent brain between the sylvian fissure and temporal horn. There are 2 smaller subependymal foci of high signal along the lateral side of the left ventricular atrium. Possible additional small acute stroke in the anteromedial left temporal lobe. The inferomedial temporal finding is not well seen on the ADC images. The other abnormalities are low signal consistent with the acute strokes. On the gradient images, there is serpiginous and mild focal low signal in the brain adjacent to the smoothly marginated depression in the calvarium posterior laterally on the right side. Probable hemosiderin deposition. Moderate diffuse volume loss. Normal ventricular size. No midline shift. There is a focal defect in the mid body of the corpus callosum. This measures about 6 mm and could be an old stroke. With substantial artifact on the FLAIR images, bilateral focal and confluent hyperintensity likely represent small vessel disease. Normal flow voids in the basilar and internalcarotid arteries. IMPRESSION: 1. Small acute left-sided strokes in the left basal ganglia and adjacent temporal lobe.Possible additional stroke in the inferomedial left temporal lobe. 2. Volume loss and probable small vessel disease. 3. Calvarial contour abnormality could be correlated with prior trauma. 4. Preliminary report was sent to Dr Gibbs by [employer] at 1825 hours on 01/20/2025. Referred By: ISAK KANG Interpreted By: Ryan Prasad MD, 01/20/2025 6:13 PM ECG 12 lead Result Date: 01/20/[address] [address] Test Date: 2025-01-20 Pat Name: ОЛЕГ WATSON Department: 1 Room: 726AA Gender: Male Legislators: Mike : 1955 Requested By: SANDRA RAY Order Number: [id number] Reading MD: Wil Rogers Measurements Intervals [place] Rate: 89 P: 12 WI: 176 QRS: 21 QRSD: 98 T: 47 QT: 358 QTc: 436 Interpretive Statements SINUS RHYTHM POSSIBLE LEFT ATRIAL ENLARGEMENT [-0.1mV P-WAVE IN V1/V2] POSSIBLE ANTERIOR MYOCARDIAL INFARCTION , OF INDETERMINATE AGE [30 ms Q WAVE IN V3/V4, OR R < 0.2 mV IN V4] CTA HEAD+NECK Result Date: 01/20/[address] [address] Examination: Cervicocerebral CTA. Exam time: 1137 hours. Clinical history: Right-sided weakness. Visual disturbance. Suspected chronic C2 fracture. Comparison: CT neck, 01/19/2025, noncontrast head CT, 01/20/2025. Technique: Thin section spiral axial scans were acquired from the level of the aortic arch to the vertex during the administration of intravenous contrast for evaluation of the carotid and vertebral arteries and their distributions. 3-D MIP sagittal and coronal, rotating 3-D MIP and rotating volume rendered 3-D reconstructions were performed from the data set. A dose lowering technique was used forthis procedure, which may include, but is not limited to, dose reduction techniques, automated exposure control, the use of iterative reconstruction and ALARA/Image Gently techniques. Stenosis estimates are made using NASCET criteria. Findings: VASCULAR FINDINGS: There is the typical configuration of the origin of the great vessels from the aortic arch. There is minor atherosclerotic calcification of the aorta and arch vessels. The brachiocephalic and bilateral subclavian and axillary arteries are widely patent. The vertebral arteries are rather diminutive but widely patent bilaterally with slight left dominance. There is hypoplasia of the V 4 segments bilaterally with the right giving riseto terminal branches in the cerebellum. The left vertebral artery continues as the basilar artery which is hypoplastic proximally but patent. Anatomic variant persistent trigeminal artery on the leftprimarily supplies the distal basilar artery which is widely patent. 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 The arteries of the [place] are otherwise unremarkable with no aneurysm, vascular malformation or major vessel occlusion identified. The common and internal carotid arteries and carotid bulbs are widely patent bilaterally with only mild disease in the siphons. Dense calcific plaque at the origin of the left external carotid artery precludes reliable assessment although there is no poststenotic dilatation. The external carotid arteries are otherwise widely patent. NONVASCULAR FINDINGS: There is noabnormal intracranial enhancement. The orbits and orbital contents appear unremarkable. The patientis nearly edentulous. 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 There is spondylosis, in keeping with age. Changes from median sternotomy again evident. Incidental azygoslobe is noted. Findings suggesting pulmonary fibrosis again evident. IMPRESSION: 1. No acute or significant cervicocerebral vascular abnormality identified. 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 See text. 2. 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 3. Additional chronic/nonurgent findings as described. Referred By: ISAK Zuritaectronically Signed By: Atilio Varela MD on 01/20/2025 1:07 PM Interpreted By: Atilio Varela MD, 01/20/2025 12:[address] HEAD WO CON Result Date: 01/20/[address] [address] Examination: CT of the head without contrast. Exam time: 1135 hours. Clinical history: Right-sided weakness. Visual disturbance. History of diabetes and hypertension. Comparison: None Technique: Noncontrast axial scans from skull base to vertex. Sagittal and coronal reconstructions were performed from the data set. A dose lowering technique was used for this procedure, which may include, but is not limited to,dose reduction techniques, automated exposure control, the use of iterative reconstruction and ALARA/Image Gently techniques. Findings: There is prominence of the ventricles, fissures and sulci, greater than anticipated for age, compatible with moderate diffuse cortical atrophy. No shift of midlineor mass effect is noted. There is periventricular decreased attenuation, compatible with small vessel disease. No other areas of abnormal x- ray attenuation are identified. In particular, there is no mass, hemorrhage or sign of acute stroke. No extracerebral fluid collections. The mastoid air cells and paranasal sinuses appear clear. Deformity of the right posterior parietal calvarium may be congenital versus remote posttraumatic sequela. Correlation with the history is advised. IMPRESSION: 1. No acute intracranial process identified. 2. Cortical atrophy and small vessel disease. 3. 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 Clinical correlation required. Referred By: ISAK KANG Interpreted By: Atilio Varela MD, 01/20/2025 12:18 PM XR CERV SPINE LAT 1V Result Date: 01/20/[address] [address] EXAMINATION: XR CERV SPINE LAT 1V HISTORY: Closed C2 fracture. COMPARISON: CTA neck 01/19/2025. TECHNIQUE: Single lateral view of the cervical spine. FINDINGS: Diffuse osteopenia of the cervical spine. The known [id number] seen on comparison CT imaging is not well depicted radiographically. No significant cortical step-off seen involving the C2 vertebrae. Vertebral body heights appear preserved. Multilevel degenerative disc space narrowing. Multilevel facet arthropathy. Prevertebral soft tissues appear normal. IMPRESSION: The known C2 fracture is not well depicted radiographically. No significant cortical step-off is seen involving the C2 vertebrae. Referred By: ISAK KANG Interpreted By: Alfie Davey MD, 01/20/2025 4:[address] CHEST+ABD+PEL W CON Result Date: 01/19/2025 [place] [address] [place], [place] [address] CLINICAL INDICATION: 69-year-old male. Reason for examination: Ground- level fall with abdominal pain 01/19/2025 7:58 PM, Kwan Varela L: 100ml injected into AC, creat 0.8 from [facility]. Trauma CAT 3 transfer - Pt fall and laid on the ground for hours. known dens fx. Images from [facility] on PACS. Scanned by [facility] TECHNIQUE: CT of the chest, abdomen and pelvis was obtained in the axial projection following administration of 100 cc of Isovue 370. Additional delayed images were obtained. through the same levels. Coronal and sagittal reconstructions were provided of both phases of imaging. Intravenous contrast was injected via indwelling IV access site in the right antecubital fossa. No adverse contrast reaction. It should be noted that the dictations for the chest and abdomen and pelvis are contained within this one report. Dose lowering technique was used for this study which may include, but is notlimited to, dose reduction techniques, automated exposure control, use of iterative reconstruction and ALARA (As low As Reasonably Achievable)/Image Gently techniques. COMPARISON: For the purposes ofthis study there is, portable trauma chest radiograph from [facility] at 15:48.. Outside imaging also includes CTA head and neck, CT brain and CT C-spine CT chest without contrast 12/09/2023. FROM [facility] CT chest without contrast 03/20/2023. [facility] CT abdomen and pelvis without contrast [facility] FINDINGS: CHEST: There is no pneumothorax. No pleural effusion or consolidation. No findings of interstitial edema or congestion. No localized nodular opacities that would suggest pulmonary hemorrhage or pulmonary contusion. The lingula and left lower lobe opacity is now better seen to be asymmetric elevation left diaphragm and large epicardial fat pad. There is no CT findings of pneumonia. There is, however mid and lower lung field peripheral tree-in-bud and probably thickened bronchial smith in the lower lung bhardwaj without mucous plugging or endobronchial lesion. Probably bronchitis or bronchiolitis this is unchanged since the [address] studies. May be chronic. Redemonstration of stable rounded 13 mm pleural-based nodule lateral basal segment right lower lobe (axial image 65). Interval development of tiny central calcifications may be developing granuloma. There is no mediastinal or hilar or axillary lymphadenopathy. The heart is normal in size. No pericardial effusion. There is no hepatic venous reflux. Heavy right and left and circumflex and LAD [place] coronary artery calcifications which have been over supplied by CABG. VASCULAR IMAGING: All segments of the thoracic and abdominal aorta are normal in caliber. No evidence of traumatic aortic injury. No evidence of aortic dissection. No periaortic fluid in the chest or abdomen. Normal caliber and normal opacification 3 separate great vessels. Normal caliber normal opacificationmesenteric arteries and single right and single left with accessory left renal artery. Essentially n o calcific or atheromatous disease in the aorta or great vessels mesenteric arteries and renal arteries. No hemodynamically significant narrowing of the inflow. There is long segment scattered plaqueof proximal outflow arteries. This is unchanged since 2022. BONE WINDOW IMAGING: The sternum is well healed around median sternotomy wire sutures. No evidence of acute sternal fracture. The lower clavicles are intact. Right and left ribs intact. Old wedge compression deformity superior endplate [id number] 10% loss of height of this vertebral segment and exaggeration due to central spinal stenosis. No retropulsion of the posterior vertebral margin. There is no acute fracture or traumatic malalignment in the thoracolumbar spine pelvis or hips. . MPRESSION: 1.No CT evidence of acute traumatic injury to the thoracic or abdominal aorta 2.No pneumothorax. No congestion or pneumonia or pleural effusion or pneumonia. 3.The opacification of lingula and left lower lobe seen on the trauma chest radiograph is now seen to be superimposition of large left pericardial fat pad and elevated left diaphragm... 4. Chronic findings suggestive of bronchitis or bronchiolitis 5. No acute fracture in the bony thorax 6. No acute fracture in the thoracolumbar spine pelvis or hips 7. Old wedge compression deformity T10 ABDOMEN: The liver, spleen, pancreas adrenal glands and kidneys are grossly normal. Mild gallbladder distention with the fundus of the gallbladder abutting the lateral abdominal wall. No gallbladder wall thickening or pericholecystic fluid or gallstones or sludge. There is no extrahepatic ductal dilatation. There is no evidence of traumatic injury to the organs of the abdomen or pelvis. Both kidneys demonstrate symmetric uptake concentration and clearance of the contrast material. No hydronephrosis. Normal caliber ureters opacify through the abdomen into the bladder. There is no peritoneal or retroperitoneal fluid or hemorrhage. GI: The stomach is unremarkable. The unopacified loops of small bowel and colon are grossly normal in caliber and position. No evidence of traumatic bowel wall injury or bowel wall hematoma. No bowel obstruction. PELVIS: The urinary bladder is filled withcontrast. Normal size. Normal bladder wall around the contrast. There is no extravasation of contrast to suggest injury to the renal collecting systems.. No free fluid in the dependent pelvis. The prostate measures 4 cm in diameter. Tiny TURP defect. IMPRESSION: 1. No CT evidence of acute injury to the solid organs or hollow viscus of the abdomen and pelvis. Referred By: ISAK KANG Interpreted By: Trina Ferrera DO, 01/19/2025 8:43 PM Disposition: discharged to longterm facility Patient Instructions: Current Discharge Medication List START taking these medications Details furosemide (LASIX) 40 MG tablet 1 tablet (40 mg total) by Per G Tube route daily for 60 days. Qty: 30 tablet, Refills: 1 HYDROcodone-acetaminophen (NORCO) 5-325 MG tablet 1 tablet by Per G Tube route every 6 (six) hours as needed. Indications: Acute Pain < 7 Day Supply Qty: 21 tablet, Refills: 0 Associated Diagnoses: Uncontrolled type 2 diabetes mellitus with hyperglycemia ([facility]/HCC [facility]) !! insulin glargine (LANTUS) 100 UNIT/ML injection (VIAL) Inject 12 Units into the skin every morning for 60 days. Qty: 3.6 mL, Refills: 1 !! insulin glargine (LANTUS) 100 UNIT/ML injection (VIAL) Inject 20 Units into the skin nightly at bedtime for 60 days. Qty: 6 mL, Refills: 1 !! insulin lispro (HUMALOG/ADMELOG) 100 UNIT/ML injection (VIAL) Inject 1-18 Units into the skin 3 (three) times daily before meals. Qty: 100 mL, Refills: 0 !! insulin lispro (HUMALOG/ADMELOG) 100 UNIT/ML injection (VIAL) Inject 12 Units into the skin 4 (four) times daily with meals and nightly. Qty: 14.4 mL, Refills: 1 lansoprazole (PREVACID SOLUTAB) 30 MG disintegrating tablet 1 tablet (30 mg total) by Per G Tube route every morning before breakfast for 60 days. Qty: 30 tablet, Refills: 1 lidocaine 4 % patch Place 1 patch onto the skin daily. Remove & Discard patch within 12 hours or as directed by Qty: 30 patch, Refills: 0 metoprolol tartrate (LOPRESSOR) 25 MG tablet 1 tablet (25 mg total) by Per G Tube route 2 (two) times daily for 60 days. Qty: 60 tablet, Refills: 1 !! protein supplement (PROSOURCE) Liquid 1 packet by Per G Tube route daily for 60 days. Qty: 60 packet, Refills: 0 scopolamine (TRANSDERM-SCOP) 1 MG/3DAYS patch Place 1 patch onto the skin every third day for 60 days. Qty: 10 patch, Refills: 1 !! TF diabetic w/Fiber (GLUCERNA 1.2) Liquid 120-356 mL/hr by Per G Tube route 4 (four) times daily. Qty: 100 mL, Refills: 1 !! - Potential duplicate medications found. Please discuss with provider. CONTINUE these medications which have NOT CHANGED Details aspirin EC (ECOTRIN) 81 MG tablet Take 1 tablet (81 mg total) by mouth daily. Qty: 90 tablet, Refills: 3 Associated Diagnoses: Coronary artery disease involving [place] coronary artery of [place] heart without angina pectoris; S/P CABG x 4 lisinopril (PRINIVIL) 5 MG tablet Take 1 tablet (5 mg total) by mouth daily. Qty: 90 tablet, Refills: 1 Associated Diagnoses: Essential hypertension; Microalbuminuria metoprolol succinate ER (TOPROL-XL) 25 MG 24 hr tablet Take 1 tablet (25 mg total) by mouth daily. Qty: 90 tablet, Refills: 1 Associated Diagnoses: Essential hypertension pantoprazole EC (PROTONIX) 40 MG tablet take 1 tablet by mouth every day Qty: 90 tablet, Refills: 1 Associated Diagnoses: Gastroesophageal reflux disease, unspecified whether esophagitis present silver sulfADIAZINE (SILVADENE) 1 % cream Apply topically 2 (two) times daily. 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 Qty: 45 tablet, Refills: 1 Associated Diagnoses: Uncontrolled type 2 diabetes mellitus with hyperglycemia (CMS/HCC HHS/HCC) glimepiride (AMARYL) 2 MG tablet Take 1 tablet (2 mg total) by mouth every morning before breakfast. Glucose Blood (JOORTOUCH ULTRA) test strip Use as instructed -- Test blood sugar BID and PRN DX: E11.65 Qty: 200 strip, Refills: 3 Associated Diagnoses: Uncontrolled type 2 diabetes mellitus with hyperglycemia (CMS/HCC HHS/HCC) Insulin Pen Needle (PEN NEEDLES) 31G X 8 MM Misc 1 each by Does not apply route daily. Qty: 100 each, Refills: 3 Associated Diagnoses: Uncontrolled type 2 diabetes mellitus with hyperglycemia (CMS/HCC HHS/HCC) metFORMIN (GLUCOPHAGE) 1000 MG tablet BID Qty: 180 tablet, Refills: 3 Associated Diagnoses: Uncontrolled type 2 diabetes mellitus with hyperglycemia ([facility]/HCC HHS/HCC) pioglitazone (ACTOS) 30 MG tablet Take 1 tablet (30 mg total) by mouth daily. STOP taking these medications insulin lispro, 1 Unit Dial, (HUMALOG) 100 UNIT/ML injection (PEN) Activity: as tolerated. Diet: Tube feeds May have one purreed item per meal for comfort and practice Wound Care: none needed Follow up labs needed: Follow-up; Josias Mackay MD [address] [place] [id number] Follow up Will arrange follow up Nicole Garcia, CREDIT AND COLLECTION MANAGER[address] [place] [id number] Follow up Jairo Montanez MD [address] [place] [address] Follow up Total time spent on discharge was 35 minutes. Signed: LUDWIG SAUCEDO MD 02/02/2025 10:22 AM documented in this encounter Discharge Instructions * Discharge Instructions* DONNIE Cruz - 01/19/2025 9:46 PM CDT [facility]TH[facility]AED[facility] DISCHARGE INSTRUCTIONS - Patient to follow up with Dr. [facility]ane[facility] in 1-2 weeks. - Please call the clinic at [phone] to schedule this appointment. - Take pain medication only as prescribed as needed. - Call the office or return to the ER if you notice any of the following: severe/uncontrollable pain, numbness, tingling, inability to move or feel fingers/toes, or cold/blue fingers, or any other concerning symptoms. Trauma Services -There is no need to follow up with trauma * Attachments The following attachments cannot be sent through Care Everywhere. * Apoplexy Discharge Instructions (Mosotho) * Dysphagia Discharge Instructions (Mosotho) documented in this encounter Medications at Time of Discharge aspirin EC (ECOTRIN) 81 MG tabletIndications:C oronary artery disease involving [place] coronary artery of [place] heart without angina pectoris,S/P CABG x 4 Take 1 tablet (81 mg total) by mouth daily. 90 tablet 3 06/01/2024 furosemide (LASIX) 40 MG tablet 1 tablet (40 mg total) by Per G Tube route daily for 60 days. 30 tablet 1 02/03/2025 5 HYDROcodone-acetami nophen (NORCO) 5-325 MG tabletIndications:A cute Pain < 7 Day Supply 1 tablet by Per G Tube route every 6 (six) hours as needed. Indications: Acute Pain < 7 Day Supply 21 tablet 02/02/2025 5 insulin glargine (LANTUS) 100 UNIT/ML injection (VIAL) Inject 12 Units into the skin every morning for 60 days. 3.6 mL 1 02/03/2025 5 insulin glargine (LANTUS) 100 UNIT/ML injection (VIAL) Inject 20 Units into the skin nightly at bedtime for 60 days. 6 mL 1 02/02/2025 5 insulin lispro (HUMALOG/ADMELOG) 100 UNIT/ML injection (VIAL) Inject 1-18 Units into the skin 3 (three) times daily before meals. 100 mL 02/02/2025 insulin lispro (HUMALOG/ADMELOG) 100 UNIT/ML injection (VIAL) Inject 12 Units into the skin 4 (four) times daily with meals and nightly. 14.4 mL 1 02/02/2025 5 lansoprazole (PREVACID SOLUTAB) 30 MG disintegrating tablet 1 tablet (30 mg total) by Per G Tube route every morning before breakfast for 60 days. 30 tablet 1 02/03/2025 5 lidocaine 4 % patch Place 1 patch onto the skin daily. Remove & Discard patch within 12 hours or as directed by 30 patch 02/02/2025 lisinopril (PRINIVIL) 5 MG tabletIndications:E ssential hypertension,Microa lbuminuria Take 1 tablet (5 mg total) by mouth daily. 90 tablet 1 11/01/2024 metoprolol succinate ER (TOPROL-XL) 25 MG 24 hr tabletIndications:E ssential hypertension Take 1 tablet (25 mg total) by mouth daily. 90 tablet 1 11/01/2024 metoprolol tartrate (LOPRESSOR) 25 MG tablet 1 tablet (25 mg total) by Per G Tube route 2 (two) times daily for 60 days. 60 tablet 1 02/02/2025 5 pantoprazole EC (PROTONIX) 40 MG tabletIndications:G astroesophageal reflux disease, unspecified whether esophagitis present take 1 tablet by mouth every day 90 tablet 1 06/06/2024 protein supplement (PROSOURCE) Liquid 1 packet by Per G Tube route daily for 60 days. 60 packet 02/03/2025 5 scopolamine (TRANSDERM-SCOP) 1 MG/3DAYS patch Place 1 patch onto the skin every third day for 60 days. 10 patch 1 02/02/2025 5 silver sulfADIAZINE (SILVADENE) 1 % creamIndications:PV D (peripheral vascular disease),Peripheral polyneuropathy,Diab etic ulcer of midfoot associated with type 1 diabetes mellitus, unspecified laterality, unspecified ulcer stage (CMS/HCC HHS/HCC) Apply topically 2 (two) times daily. 25 g 3 12/14/2024 TF diabetic w/Fiber (GLUCERNA 1.2) Liquid 120-356 mL/hr by Per G Tube route 4 (four) times daily. 100 mL 1 02/02/2025 atorvastatin (LIPITOR) 40 MG tabletIndications:U ncontrolled type 2 diabetes mellitus with hyperglycemia ([facility] HHS/HCC) Take 1 tablet (40 mg total) by mouth every other day. 45 tablet 1 11/01/2024 glimepiride (AMARYL) 2 MG tablet Take 1 tablet (2 mg total) by mouth every morning before breakfast. 03/07/2024 Glucose Blood (JOORTOUCH ULTRA) test stripIndications:Un controlled type 2 diabetes mellitus with hyperglycemia (CMS/HCC HHS/HCC) Use as instructed -- Test blood sugar BID and PRN DX: E11.65 200 strip 3 08/26/2023 Insulin Pen Needle (PEN NEEDLES) 31G X 8 MM MiscIndications:Unc ontrolled type 2 diabetes mellitus with hyperglycemia ([facility] HHS/HCC) 1 each by Does not apply route daily. 100 each 3 03/31/2023 metFORMIN (GLUCOPHAGE) 1000 MG tabletIndications:U ncontrolled type 2 diabetes mellitus with hyperglycemia ([facility] HHS/HCC) BID 180 tablet 3 09/13/2023 pioglitazone (ACTOS) 30 MG tablet Take 1 tablet (30 mg total) by mouth daily. 02/07/2024 documented as of this encounter Progress Notes * Payton Bales PharmD, [facility] - 02/02/2025 1:13 PM CDT Pharmacy Clinical Services: Stroke Discharge Note Олег Watson will be discharged on 02/02/2025. Pharmacy had been consulted to review the patient's chart for medication appropriateness upon discharge for meeting stroke core measures. 1. Antithrombotic therapy: aspirin 81 mg. 2. Statin therapy: atorvastatin 40 mg daily LDL (CALCULATED) Date Value Ref Range Status 01/21/2025 72 MG/DL Final Comment: <100 OPTIMAL 3. Documented A.Fib/flutter?: No; Anticoagulation therapy: none indicated Stroke measures have been met and medications are appropriate upon discharge. Thank you for the consult. Payton Bales PharmD, [facility] Phone number: [phone] 02/02/2025 1:14 PM * Soumya Garcia RN - 02/02/2025 10:26 AM CDT 02/02/25 1025 Forms First Important Message from Medicare (IMM) Refused to Sign Copy delivered Reinforcement Important Message from Medicare (Subsequent IMM) Signed Copy delivered * MARIO Penny - 02/02/2025 10:16 AM CDT Speech Pathology Video Oropharyngeal Swallow Study (LOY) Recommended Diet: One pureed only per meal with 100% supervision for comfort. Recommendations: Cautious initiation of one pureed item only per meal with 100% supervision, upright 90 degrees. Strict aspiration precautions: upright 90 degrees, 100% supervision, slow rate, upright at least 20-30 min post meal, discontinue diet with concerns of aspiration. ST will continue to follow. Assessment: Patient presents with moderate to severe oropharyngeal dysphagia characterized by prolonged AP transit, delayed triggering of swallow, reduced laryngeal elevation, resulting in sustained penetration (with impending aspiration) of both moderately thick and mildly thick liquids. No penetration or aspiration with pudding. At this time, as patient unable to safely tolerate any liquid consistencies, unable to advance to full oral diet. Can cautiously initiate one pureed item only diet per meal for now, with close supervision. Objective: This patient was seen in radiology for Video Oropharyngeal Swallow Study (LOY) with a left lateral view. Patient accepted barium trials mildly thick, moderately thick liquid (honey), pureed consistencies. Patient with fair lip seal around spoon and straw. Anterior-posterior transit was dysorganized with tongue pumping, but functional. Trigger of the pharyngeal swallow was delayed, with premature spillage to pyriform sinuses. Tongue base retraction was reduced; laryngeal elevation was reduced; anterior excursion of the larynx was reduced; epiglottic inversion was fair. There were mild residuals in the valleculae and pyriform sinuses after the swallow. Patient with sustained penetr ation (with impending aspiration) with moderately thick liquids via spoon and cup; not a candidate for compensatory measures due to neck brace and cognition. Deep, sustained penetration to the level of the cords (no sensation) with mildly thick; prompted cough appeared to clear from vocal cords. Nopenetration or aspiration with pureed consistencies. At this time, if MD wishes to pursue oral diet, recommend only one pureed item per tray with 100% supervision, aspiration precautions as above. ST will continue to follow. Please note performance on LOY may not reflect oropharyngeal swallow function in its entirety as it is a small snapshot in time and external factors may negatively impact overall function such as fatigue, bite size, rate of intake, positioning, level of alertness, and accurate thickening/modification of diet at bedside. TIME IN: 0900 TIME OUT: 915 INTERPRETATION: [id number] TOTAL TIME: 26 MIN Please refer to the radiologist's report for further details and to [facility] for images. 02/02/25 1013 Therapy Visit DIRECTOR OF MEDICARE Received on 01/20/25 DIRECTOR OF MEDICARE Evaluation Completed on 01/21/25 Subjective Patient seated upright in fluro chair for left lateral view of swallow for LOY this date. Alert and cooperative, but a little more subdued from yesterday's session with this DIRECTOR OF MEDICARE. Agreeable to evaluation. Prior to LOY, patient with coughing, bringing up mild secretions with oral suction. 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 While at hospital, pt with right sided weakness and blurry vision. MRI demonstrates: small acute left-sided strokes in the left basal ganglia, adjacent temporal lobe, possible additional stroke in the inferomedial left temporal lobe, volume loss and probable small vessel disease. Living situation Home Mental status Alert;Responsive;Cooperative Verified Two Patient Identifiers Yes Patient consents to Therapy Yes Inpatient DIRECTOR OF MEDICARE Time Calculation DIRECTOR OF MEDICARE Start Time 09 DIRECTOR OF MEDICARE Stop Time 915 DIRECTOR OF MEDICARE Time Calculation (min) 16 min Precautions Precautions Aspiration;Neck brace;Stroke protocol;Supplemental oxygen Instructed on Precautions Yes;Needs reinforcement and education;Verbalizes understanding DIRECTOR OF MEDICARE Recommendations Ongoing Recommendations DIRECTOR OF MEDICARE during hospitalization Recommended Diet Change Yes Previous Diet NPO Recommended Solid Diet Level 4 Puree Transitional Food Permitted No Recommended Liquid Consistency NPO Recommended Medication Form IV;Feeding tube Understanding of information was judged to be Fair to limited by patient Results/Recommendations discussed with RN, patient, MD Plan DIRECTOR OF MEDICARE Treatments/Interventions Swallowing treatment;Ongoing assessment Progress Slow progress, medical status limitations DIRECTOR OF MEDICARE Frequency 3 times/week;5 times/week DIRECTOR OF MEDICARE Plan for Next Session p.o. trials DIRECTOR OF MEDICARE Next Appointment 02/02/25 If this is the last treatment note, it will serve as the discharge summary Yes End of Session End of Session Safety Nursing aware of session * Soumya Garcia RN - 02/02/2025 9:51 AM CDT 02/02/25 7815 Interdisciplinary Group Conference Team Members Present Case/Care management;Physician;Nursing Physician present for group conference Dr Saucedo Patient Current Status Paient current status Inpatient Barriers to Discharge Inpatient Review Barriers to Discharge Inpatient Post-Acute Authorization Needed Post-Acute Authorization Needed follow up Denial has been overturned- [facility],pt is medically ready for discharge today Patient expects to be discharged to Patient expects to be discharged to: Inpatient Rehab Facility ([facility]) Ev[facility] with [facility] called bid writer,denial overturned and they have insur auth,can accept pt today. Senior Operations Analyst asked CM specialist to assist in setting up WC transport. Pt and his nurse updated. 1020- [facility] will pick pt up at 2:00 today,daughter updated. She is agreeable to pay cost around $363.[facility] with [facility] will call bid writer back with report/fax #'s. [phone]- N/N Report- [phone] Please fax orders to- [phone] * Loretta Fisher RN - 02/02/2025 1:27 AM CDT Problem: Discharge Planning Goal: Knowledge of discharge instructions Outcome: Progressing Problem: Pain control/comfort Goal: Promote pain control/comfort Outcome: Progressing Problem: Skin integrity, Impaired-wound Goal: Absence of new skin breakdown Outcome: Progressing Goal: Evidence of wound healing Outcome: Progressing Problem: Skin integrity, Impaired-pressure injury/ulcer Goal: Absence of new skin breakdown Outcome: Progressing Goal: Evidence of pressure injury/ulcer healing Outcome: Progressing Problem: Skin integrity, at risk Goal: Absence of new skin breakdown Outcome: Progressing Problem: Moisture associated skin impairment Goal: Reduce moisture exposure Outcome: Progressing Goal: Evidence of wound healing Outcome: Progressing Goal: Evidence of pressure injury/ulcer healing Outcome: Progressing Goal: Absence of new skin breakdown Outcome: Progressing Problem: Reduced risk for falls/injury Goal: Reduced Risk for Falls/Injury Outcome: Progressing Goal: Reduced Risk of Confusion (Acute vs Chronic) Outcome: Progressing Goal: Reduced Risk of Symptomatic Depression Outcome: Progressing Goal: Reduced Risk of Altered Elimination Outcome: Progressing Goal: Reduced Risk of Dizziness/Vertigo/Balance Outcome: Progressing Goal: Reduced Risk of Polypharmacy Outcome: Progressing Problem: Pain Goal: Patient's pain/discomfort is manageable Description: Assess and monitor patient's pain using appropriate pain scale. Collaborate with interdisciplinary team and initiate plan and interventions as ordered. Re-assess patient's pain level 30 - 60 minutes after pain management intervention. Outcome: Progressing Problem: Safety Goal: Patient will be injury free during hospitalization Description: Assess and monitor vitals signs, neurological status including level of consciousness and orientation. Assess patient's risk for falls and implement fall prevention plan of care and interventions per hospital policy. Ensure arm band on, uncluttered walking paths in room, adequate room lighting, call light and overbed table within reach, bed in low position, wheels locked, side rails up per policy, and non-skid footwear provided. Outcome: Progressing Problem: Daily Care Goal: Daily care needs are met Description: Assess and monitor ability to perform self care and identify potential discharge needs. Outcome: Progressing Problem: Psychosocial Needs Goal: Demonstrates ability to cope with hospitalization/illness Description: Assess and monitor patients ability to cope with his/her illness. Outcome: Progressing Goal: Collaborate with patient/family/caregiver to identify patient specific goals for this hospitalization Outcome: Progressing Problem: Discharge Barriers Goal: Patient's discharge needs are met Description: Collaborate with interdisciplinary team and initiate plans and interventions as needed. Outcome: Progressing Problem: Aspiration - Risk of Goal: Absence of aspiration Outcome: Progressing Problem: Mobility - Impaired Goal: Able to achieve maximum mobility level Outcome: Progressing Problem: Mood - Altered Goal: Alleviation of anxiety Outcome: Progressing Goal: Decrease in depressive symptoms Outcome: Progressing Problem: THROMBOLYTIC COMPLICATION - RISK OF ANGIOEDEMA AND BLEEDING Goal: Absence of angioedema Outcome: Progressing Goal: Absence of bleeding Outcome: Progressing Problem: Tissue Perfusion - Cerebral, Altered Goal: Absence of continued neurologic deterioration signs and symptoms Outcome: Progressing Problem: Venous Thromboembolism - Risk of Goal: Absence of venous thromboembolism Outcome: Progressing Problem: Verbal Communication - Impaired Goal: Effective communication Outcome: Progressing Goal: Increased social interaction Outcome: Progressing Problem: Discharge Planning Goal: Knowledge of discharge instructions Outcome: Progressing * MARIO Penny - 02/01/2025 2:45 PM CDT Speech Therapy Treatment Note Recommended Diet: NPO; PEG for nutrition/medication management. Recommendations: Continue NPO pending LOY tomorrow. PEG for nutrition/medication. Aggressive oral care to reduce risk of nosocomial infection. ST will complete LOY tomorrow to further assess swallow function prior to diet recommendation. Summary Statement: Patient presents with appeared clinical improvement and oropharyngeal swallow this date from previous ST sessions. He is with improved communication and ability to follow commands.Patient with subtle signs of aspiration with oral intake on bedside assessment; given complex medical issues including prolonged NPO status, cervical injury, CVA, patient will benefit from LOY priorto diet advancement. Patient accepted trials of pureed foods, thin liquids, mildly thick liquids, and moderately thick liquids, fed by DIRECTOR OF MEDICARE. Fair lip seal around spoon/straw with no oral spillage. Extended time to suck from straw. Patient with mildly extended AP transit; no apparent pocketing. Suspect some degree of delayed triggering of swallow with reduced laryngeal elevation, although [place] makes it difficult to fully palpate swallow. At times, gulpy dyscoordinated swallow, multiple swallows. Immediate mild throat clearing noted with thin liquids, suggestive of possible penetration/aspiration. No immediate clinical indicators of aspiration with pureed or moderately thick, although questionable subtle change in respiration with mildly thick x1? Post trials, DIRECTOR OF MEDICARE prompted patient to cough and complete oralcare, with strong extended cough response, with DIRECTOR OF MEDICARE retrieving appeared food material via oral yanker. At this time, patient would benefit from instrumental exam of swallow via LOY. Dr. Saucedo in agreement - LOY ordered for tomorrow. Continue NPO until then. 02/01/25 1441 Therapy Visit DIRECTOR OF MEDICARE Received on 01/20/25 DIRECTOR OF MEDICARE Evaluation Completed on 01/21/25 Subjective Patient seen alert in bed with [place] J collar in place. In very good spirits, eager to eat and drink something. Patient able to functionally communicate wants and needs. He was able to follow simple oral motor commands, although oral weakness noted with mild dysarthria. Patient oriented to [facility], [facility], [facility], and [facility]. 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 While at hospital, pt with right sided weakness and blurry vision. MRI demonstrates: small acute left-sided strokes in the left basal ganglia, adjacent temporal lobe, possible additional stroke in the inferomedial left temporal lobe, volume loss and probable small vessel disease. Living situation Home Mental status Alert;Responsive;Cooperative Verified Two Patient Identifiers Yes Patient consents to Therapy Yes Inpatient DIRECTOR OF MEDICARE Time Calculation DIRECTOR OF MEDICARE Start Time 1400 DIRECTOR OF MEDICARE Stop Time 1429 DIRECTOR OF MEDICARE Time Calculation (min) 29 min Precautions Precautions Aspiration;Neck brace;Stroke protocol;Supplemental oxygen Instructed on Precautions Yes;Needs reinforcement and education;Verbalizes understanding DIRECTOR OF MEDICARE Recommendations Ongoing Recommendations DIRECTOR OF MEDICARE during hospitalization Recommended Diet Change No Previous Diet NPO Recommended Solid Diet NPO Transitional Food Permitted No Recommended Liquid Consistency NPO Recommended Medication Form IV;Feeding tube Understanding of information was judged to be Fair to limited by patient Results/Recommendations discussed with RN, patient, MD Plan DIRECTOR OF MEDICARE Treatments/Interventions Video swallow study;Swallowing treatment;Ongoing assessment Progress Slow progress, medical status limitations DIRECTOR OF MEDICARE Frequency 3 times/week;4 times/week DIRECTOR OF MEDICARE Plan for Next Session LOY DIRECTOR OF MEDICARE Next Appointment 02/01/25 If this is the last treatment note, it will serve as the discharge summary Yes End of Session End of Session Safety Bed alarm set/activated;Call light within reach;Nursing aware of session * Roseanna Ha MD - 02/01/2025 2:44 PM CDT Progress Note Patient Name: Олег Watson Date of : 1955 Admission Date: 01/19/2025 Reason for Follow up: Type 2 diabetes on tube feed Subjective: He is on bolus tube feed via PEG. Glucerna 1.2 INCOLE via G-tube. TF @ 0800, 1200, 1600, and 2000 He was resting in the bed comfortably, denies any complain, no hypoglycemia last 24 hours, glycemiccontrol improved Medications: Current Facility-Administered Medications Medication Dose Route Frequency Provider Last Rate Last Admin acetaminophen (TYLENOL) tablet 650 mg 650 mg Tube Q4H PRN Emiliano Donaldson MD Or acetaminophen (TYLENOL) suppository 650 mg 650 mg Rectal Q4H PRN Emiliano Donaldson MD Or acetaminophen (TYLENOL) 160 MG/5ML solution 650 mg 650 mg Tube Q4H PRN Emiilano Donaldson MD 650 mg at01/29/252123 albuterol (PROVENTIL) (2.5 MG/3ML) 0.083% nebulizer solution 2.5 mg 2.5 mg Nebulization BID PRN Naya Gonzalez MD 2.5 mg at 01/26/25 191 aspirin chewable tablet 81 mg 81 mg Tube Daily Emiliano Donaldson MD 81 mg at 02/01/25 09 atorvastatin (LIPITOR) tablet 80 mg 80 mg Tube Nightly at bedtime Emiliano Donaldson MD 80 mg at 01/31/25 211 atropine 1 % ophthalmic solution 1 drop 1 drop Sublingual TID PRN Naya Gonzalez MD dextrose (GLUTOSE) 40 % oral gel 37.5-75 g 15-30 g of dextrose Oral PRN Devonte Kohler MD dextrose 10 % bolus infusion 125-250 mL 125-250 mL Intravenous PRN Devonte Kohler MD Stopped at 01/29/25 0042 furosemide (LASIX) tablet 40 mg 40 mg Tube Daily Devonte Kohler MD 40 mg at 02/01/25 0907 glucagon injection 1 mg 1 mg Intramuscular Once PRN Devonte Kohler MD heparin (porcine) injection 5,000 Units 5,000 Units Subcutaneous 2 times per day Naya Gonzalez MD 5,000 Units at 02/01/25 0905 hydrALAZINE (APRESOLINE) injection 10 mg 10 mg Intravenous Q6H PRN DONNIE Cruz 10 mg at 01/24/25 0414 HYDROcodone-acetaminophen (NORCO) 5-325 MG tablet 1 tablet 1 tablet Tube Q6H PRN Emiliano Donaldson MD1 tablet at 01/22/25 2348 insulin glargine (LANTUS) injection 12 Units 12 Units Subcutaneous QAM Roseanna Ha MD 12 Units at02/01/25 0649 insulin glargine (LANTUS) injection 20 Units 20 Units Subcutaneous Nightly at bedtime Roseanna Ha MD insulin lispro (HUMALOG/ADMELOG) injection 1-18 Units 1-18 Units Subcutaneous Q4H Roseanna Ha MD 2 Units at 02/01/25 1200 insulin lispro (HUMALOG/ADMELOG) injection 12 Units 12 Units Subcutaneous 4x Daily WC Roseanna Ha MD 12 Units at 02/01/25 1159 labetalol (TRANDATE) injection 20 mg 20 mg Intravenous Q6H PRN LYNN Garner 20 mg at 01/23/25 1314 lansoprazole (PREVACID SOLUTAB) disintegrating tablet 30 mg 30 mg Tube QAM AC Emiliano Donaldson MD 30mg at 02/01/25 0649 lidocaine 4 % patch 1 patch 1 patch Transdermal Q24H Phylicia Howard NP 1 patch at 01/31/25 2121 lidocaine viscous (XYLOCAINE) 2 % solution 15 mL 15 mL Mouth/Throat Once Naya Gonzalez MD lisinopril (PRINIVIL) tablet 5 mg 5 mg Tube Daily Emiliano Donaldson MD 5 mg at 02/01/25 0906 metoprolol tartrate (LOPRESSOR) tablet 25 mg 25 mg Tube BID DONNIE Cruz 25 mg at 907 naLOXone (NARCAN) injection 0.4 mg 0.4 mg Intravenous PRN Phylicia Howard NP ondansetron (ZOFRAN) injection 4 mg 4 mg Intravenous Q8H PRN Phylicia Howard NP oxyCODONE immediate release (ROXICODONE) tablet 5 mg 5 mg Tube Q6H PRN Emiliano Donaldson MD 5 mg at 01/28/25 1604 protein supplement (PROSOURCE) packet 1 packet 1 packet Per G Tube Daily Ludwig Saucedo MD 1 packet at 02/01/25 0907 scopolamine (TRANSDERM-SCOP) 1 MG/3DAYS patch 1 patch 1 patch Transdermal Q72H Naya Gonzalez MD1 patch at 01/30/25 1731 senna-docusate (SENOKOT-S) 8.6-50 MG tablet 1 tablet 1 tablet Tube BID Emiliano Donaldson MD 1 tablet at 02/01/25 0907 sodium chloride 7 % nebulizer solution 4 mL 4 mL Nebulization 2 times daily RT Naya Gonzalez MD4 mL at 02/01/25 0907 TF diabetic w/Fiber (GLUCERNA 1.2) liquid 120-356 mL/hr Per G Tube 4x Daily Ludwig Saucedo MD 300 mL/hr at 02/01/25 1200 Objective: PHYSICAL EXAMINATION: GENERAL: well-developed, well-nourished .No apparent distress. TF via PEG tube VITAL SIGNS: As above Current Vitals: Weight: Last Recorded Weight 01/27/25 0400 Weight: 85.4 kg (188 lb 4.4 oz) Vitals: 02/01/25 1205 BP: 117/74 Pulse: (!) 113 Resp: Temp: 97.3 ??F (36.3 ??C) SpO2: 96% Labs: Recent Results (from the past 24 hours) POCT glucose Collection Time: 01/31/25 3:44 PM Result Value Ref Range GLUCOSE POC 187 (H) 70 - 109 POCT glucose Collection Time: 01/31/25 4:20 PM Result Value Ref Range GLUCOSE POC 189 (H) 70 - 109 POCT glucose Collection Time: 01/31/25 10:15 PM Result Value Ref Range GLUCOSE POC 115 (H) 70 - 109 POCT glucose Collection Time: 02/01/25 1:51 AM Result Value Ref Range GLUCOSE POC 110 (H) 70 - 109 POCT glucose Collection Time: 02/01/25 6:13 AM Result Value Ref Range GLUCOSE POC 92 70 - 109 POCT glucose Collection Time: 02/01/25 9:03 AM Result Value Ref Range GLUCOSE POC 113 (H) 70 - 109 POCT glucose Collection Time: 02/01/25 11:51 AM Result Value Ref Range GLUCOSE POC 141 (H) 70 - 109 Recent Labs Lab 01/31/25 1544 01/31/25 1620 01/31/25 2215 02/01/25 0151 02/01/25 0613 02/01/25 0903 02/01/25 1151 GLUCOSEPOC 187* 189* 115* 110* 92 113* 141* Assessment and Plan Uncontrolled type 2 diabetes On tube feed Current use of insulin Outpatient endocrine provider: Tiffani Sen NP, [facility] in [place] A1c here 12.3% His blood sugar log was reviewed, overnight blood sugars are trending down, I had decreased basal insulin . currently patient is on bolus tube feed via PEG. Glucerna 1.2 NICOLE via G-tube. TF @ 0800, 1200, 1600, and 2000, --- Lantus 10 units in the morning and decrease lantus to 20 units at night -- Humalog 12 units before tube feed Q4H ; give half the units if blood sugar is less than 120 holdthe dose if tube feed is interrupted or stopped ---Humalog correctional insulin 2:50> 150 q4H --- Accu-Chek every 4 hour Call parameters in place If patient's tube feed is interrupted or stopped; please start him on D10 W at same rate to keep blood sugar between 140-180 and call [facility] endocrinology ROSEANNA HA MD 02/01/2025 * Liz Marks, HEDGE FUND MANAGER - 02/01/2025 1:15 PM CDT PT Treatment Discharge Recommendation: Inpatient Rehab Activity Recommendation for zipper setter chainstitch: up with assist of 2 and use of the 2ww to pivot to the chair 02/01/25 1250 Therapy Visit Ordering Provider Phylicia Howard NP Subjective Rn ok'd therapy session. Patient was sitting up in the recliner and states he is exhausted and has been sitting up in the chair all morning. He states he doesn't know what he will be able to do but is willing to try Reason for admission Pt presents after fall from bed at home. 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 While at hospital, pt found to have acute right sided weakness and blurry vision.MRI demonstrates: small acute left-sided strokes in the left basal ganglia, adjacent temporal lobe,possible additional stroke in the inferomedial left temporal lobe, volume loss and probable small ve ssel disease. ......PMH: Acute myocardial infarction, Ankle fracture, fracture left fibula, Coronary artery disease, Diabetes, DKA, HTN, Eustachian tube dysfunction, HLD, Hx of CABG, Microalbuminuria, Myocardial infarction, Non- rheumatic mitral regurgitation .........Therapy orders: eval and treat.. ..Activity as tolerated, up at jahaira with collar Verified Two Patient Identifiers Yes Patient consents to therapy Yes Acute Inpatient PT Time Calculation PT Start Time 1250 PT Stop Time 1315 PT Time Calculation (min) 25 min Precautions Spine Precautions Bending;Lifting;Twisting Neck Brace Applied Yes General Precautions Aspiration;Bed Alarm;Chair Alarm;Fall Risk Instructed on Precautions Yes;Needs reinforcement and education Other c-spine precautions with Kayla Cain at all times, PEG, telemetry, purewick, NPO Prior Function PLOF Comments Per eval, patient lives alone in a 1.5 story house, but resides on the main floor only. There are 2-3 steps to enter, no handrail. Bathroom has a tub/shower combo without a seat or grabbar, standard height toilet seat with vanity nearby for support. Patient owns a 2 wh/walker, but typically does not use any assistive devices. He states he is independent with all mobility, ADL's andIADL's, still drives and does errands. He reports no available assistance. Patient reports during the most recent fall he fell attempting to get out ofb bed. He reports another recent fall on the sidewalk last week, hitting his chest.........Daughter states that if necessary, her father can stay with her and the daughter's fiance. They live in a 2 story house, but patient will reside on main floor. There are 4 steps with a handrail to enter. Bathroom is a tub/shower combo with standard toilet and vanity. Daughter works shift stacker as an RN, but her fiance will be home as needed for / supervision. Pain Pain Patient does not offer or c/o pain Activity Tolerance Endurance Quality Fair Limiting Factors to Endurance Weakness;Fatigue;Acute deconditioning Activity Tolerance Comments R sided weakness, R sided inattention Cognition Overall Cognitive Status Impaired Arousal/Alertness Appropriate responses to stimuli Attention Span Attends with cues to redirect Memory Decreased short term memory Orientation Level Oriented to situation;Oriented to person Following Commands Follows one step commands with repetition Safety Judgment Decreased awareness of need for assistance Awareness of Errors Assistance required to identify errors made Deficits Decreased awareness of deficits Bed Mobility Sit to Supine Min assist to left Other (Comment) log rolling technique TRANSFERS Sit to Stand Mod assist Bed to Chair Mod assist Other (Comment) Patient stood multiple times from the recliner and the edge of the bed. He had a right sided lean but seemed to be mostly weight bearing through the LLE. patient worked on finding midline, lateral weight shifting and placing weight through the RLE. He also attempted to step in place. When lifting the LLE, he increased his R sided lean and had difficulty weight bearing through the RLE. When lifting the RLE, he needed physical assist to complete it. When performing chair<>bed transfers with the 2ww, he needed physical assist to slide the RLE toward the bed/chair. He was unable to take a step backwards with the RLE without max assist. He wanted to plop down on the chair/bed before getting his legs all of the way back to the surface he was going to sit on. Gait Gait Assistance MIRELLA Other (Comment) He states he is too fatigued to attempt this afternoon and so static/dynamic standing with weight shifting was performed instead. Balance Sitting - Static SBA Sitting - Dynamic CGA (Patient was able to work on lateral leaning down to each elbow and pushing himself back up to midline with visual/verbal cueing.) Standing - Static Mod Assist;Support of both upper extremities Standing - Dynamic Mod Assist;Support of both upper extremities Other (Comment) at risk for falls due to R sided strength deficits and inattention PT Assessment PT Assessment Despite his fatigue, he tolerated session well and worked hard on improving his static/dynamic standing balance. He required mod assist for all transfers and some physical assist when advancing the RLE. He also needed min assist for sit>supine with the log rolling technique. He would benefit from continued PT in an inpatient rehab setting to imrpove his strength, endurance, balance, proprioception, and safety awareness. Modified Marlena Score Interval Daily Interval Score 0-6 4 Discharge Recommendation PT Recommendation Inpatient rehab Plan PT Treatments/Interventions Gait Training;Manual Therapy;Therapeutic Exercises;Therapeutic Activities;Neuromuscular re-education;Patient/family training Progress Progressing toward goals PT - Next Appointment 02/01/25 If this is the last treatment note,it will serve as the discharge summary Yes End of Session End of Session Safety Bed alarm set/activated;Call light within reach;Restraints secured;Transfer status education End of Session Comment supine in bed with all needs within reach and alarm activated on the bed Education: Primary Learners Name: Олег Watson Primary Language of learner: Mosotho Patient was educated on stroke rehabilitation management transfers balance bed mobility therapy plan safety. Education was completed one to one verbal hands-on demonstration this date. Preference of learning new concepts one to one verbal hands-on demonstration Barriers to education this date were fatigue physical impairment. Response to education this date verbalized understanding asks questions demos with verbal cues needs reinforcement needs follow up needs assistance. * Ludwig Saucedo MD - 02/01/2025 1:02 PM CDT Images from the original note were not included. [employer] Hospitalist Progress note Chief Complain: Acute CVA ASSESSMENT /PLAN: Олег Watson is a 69-year-old male with PMH of uncontrolled type 2 diabetes mellitus, HTN, MA, CABG, and mitral regurgitation presented to ED on 01/19/2025 as a category 3 trauma with ground-level fall. He was found to have chronic C2 fracture, no acute injuries. Stat stroke was called on 01/20/2025nd MRI brain demonstrated left-sided ischemic stroke in the basal ganglia and adjacent temporal lobe. Patient was evaluated by neurovascular team, ortho-spine, and PM&R. He failed bedside swallow and also failed DIRECTOR OF MEDICARE eval. Currently has Keofed with tube feeds, DIRECTOR OF MEDICARE continues to follow for advancing diet versus PEG tube. PT/OT recommending inpatient rehab, referrals have been sent by case management. Hospitalist team was contacted on 01/24/2025 to take over as primary service. . 1 Chronic C2 fracture, ground-level fall 01/19/2025 Admitted by trauma service, transition to hospitalist 01/24/2025 [place] cervical collar at all times per ortho-spine PT/OT recommending inpatient rehab, referrals pending Pain control Fall precautions Wean oxygen as tolerated Outpatient follow-up with Dr. Montanez 2. Acute ischemic stroke, RUE/RLE weakness, dysarthria, dysphagia Left basal ganglia and adjacent temporal lobe small acute strokes on MRI from 01/20/2025 Failed bedside swallow, NPO per DIRECTOR OF MEDICARE, discussed with speech PEG tube okay with family -plan for P PEG placement 01/29 Increase TF to goal Stroke neuro input appreciated PM&R following, appreciate their recommendations, Continue ASA and statin Monitor on telemetry PT/OT recommending inpatient rehab, referrals pending PEG at goal Family requesting speech reeval 3. Uncontrolled type II diabetes management per endocrinology Patient's home regimen includes Lantus and lispro, patient reports compliance Most recent HbA1c 12.3% from 01/19/2025 [place] endocrinology consulted, appreciate their recommendations NG tube feeds were on hold as he pulled out NG tube yesterday. Continue D5 normal saline for now. Will defer to endocrinology to manage insulin so as to avoid duplication of orders Hypoglycemic last night 4. HTN Continue to monitor hypertension . SBP goal to < 140. 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 Continue lisinopril, Will increase metoprolol dose to better control heart rate and blood pressure 5. Hx MA, CABG, mitral regurgitation Continue aspirin statin beta-jazlyn 6 acute on chronic diastolic HFpEF EF of 63% echo done on 12/25 Chest x-ray with pulmonary congestion Continue Lasix 40 mg daily 7. Increase secretions responding well to hypertonic saline scopolamine patch reevaluate need for scopolamine patch in 2 to 3 days chest x-ray noted congestion continue Lasix Increase activit OOB TID Body mass index is 28.73 kg/m??. CODE STATUS: Full code Discussed with daughter and discussed with speech orders for PEG placed PEG will be placed on Wednesday Body mass index is 26.26 kg/m??. DVT Prophylaxis: Continue heparin DC heparin Wednesday Code Status: Full Code Disposition/Discharge plan: PEG on Wednesday probably couple of days after that I have ordered, reviewed and interpreted all Labs . I have reviewed and interpreted all Imaging . Ihave reviewed,ordered and prescribed all necessary medications. I have reviewed and interpreted allconsultant notes. Case was discussed w/ the patient and/or POA. All questions were answered & concerns addressed. Case was also discussed with case management AND SUPERVISOR EPOXY FABRICATION. LUDWIG SAUCEDO MD 1:02 PM 02/01/2025 SUBJECTIVE Patient seen and examined. Secretions improving today more awake and alert REVIEW OF SYSTEMS Negative for 12 system except mentioned SUBJECTIVE OBJECTIVE Wt Readings from Last 3 Encounters: 01/27/25 85.4 kg (188 lb 4.4 oz) 11/01/24 93.4 kg (206 lb) 10/17/24 95.3 kg (210 lb) Temp: 97.3 ??F (36.3 ??C) BP Readings from Last 3 Encounters: 02/01/25 117/74 01/11/25 (!) 118/93 12/14/24 108/84 Pulse Readings from Last 3 Encounters: 02/01/25 (!) 113 01/11/25 92 12/14/24 96 PHYSICAL EXAMINATION: General Appearance: Moderately built and nourished. head: atraumatic, normocephalic. Eyes: Pupils equal and reactive to light. No discharge.no nystagmus. Ears: Normal Tympanic membrane and external ear canal . Throat: Lips, mucosa, and tongue,teeth and gums normal. Neck: Has collar Lungs: Clear to auscultation bilaterally, respirations unlabored . No wheeze or rhonchi present. Nochest wall tenderness. Heart: S1 and S2 normal, no murmur, rub or gallop . Abdomen: Soft,non-tender, bowel sounds active all four quadrants, no masses, no organomegaly detected. Extremities: Extremities normal, atraumatic, no cyanosis or edema or clubbing Pulses: 2+ and symmetric all extremities Lymph nodes: Cervical, supraclavicular, and axillary nodes normal Neurologic: CNII-XII intact. Awake. Rt Weakness LABS: Recent Labs 01/30/25 1319 HGB 12.2 HCT 38.3 Recent Labs 01/30/25 0310 CO2 31.8 CL 106 K 4.1 NA 140 BUN 23* Intake/Output Summary (Last 24 hours) at 02/01/2025 1302 Last data filed at 02/01/2025 0801 Gross per 24 hour Intake 340 ml Output 1600 ml Net -1260 ml Microbiology Results (last 14 days) No results found for the last 336 hours. Radiology MEDICATIONS Scheduled medications aspirin 81 mg Tube Daily atorvastatin 80 mg Tube Nightly at bedtime furosemide 40 mg Tube Daily heparin (porcine) 5,000 Units Subcutaneous 2 times per day insulin glargine 12 Units Subcutaneous QAM insulin glargine 20 Units Subcutaneous Nightly at bedtime insulin lispro 1-18 Units Subcutaneous Q4H insulin lispro 12 Units Subcutaneous 4x Daily WC lansoprazole 30 mg Tube QAM AC lidocaine 1 patch Transdermal Q24H lidocaine viscous 15 mL Mouth/Throat Once lisinopril 5 mg Tube Daily metoprolol tartrate 25 mg Tube BID protein supplement 1 packet Per G Tube Daily scopolamine 1 patch Transdermal Q72H senna-docusate 1 tablet Tube BID sodium chloride 4 mL Nebulization 2 times daily RT TF diabetic w/Fiber 120-356 mL/hr Per G Tube 4x Daily Infusion PRN acetaminophen OR acetaminophen OR acetaminophen, albuterol, atropine, glucose, dextrose 10 % bolus, glucagon, hydrALAZINE, HYDROcodone-acetaminophen, labetalol, naLOXone, ondansetron, oxyCODONE immediate release * Alonso Vasquez Jr., MD - 02/01/2025 12:16 PM CDTSummary: PM&R Progress Note SUBJECTIVE CC: CVA, chronic C2 fracture, impaired mobility HISTORY: Seen with daughter at bedside. More easily able to speak and answer questions. C-collar inplace. Tolerating bolus TF well without abdominal pain or nausea. Pain well-controlled with currentmedications. Denies headache or muscle spasms. Right-sided weakness gradually seeing improvement. Continues to participate with therapies. They would like to go to [place] acute inpatient rehab, initially denied by insurance and appeal is pending. ROS: Denies CP, SOB, abd pain, nausea, vomiting, diarrhea. OBJECTIVE Current Facility-Administered Medications: acetaminophen (TYLENOL) tablet 650 mg, 650 mg, Tube, Q4H PRN OR acetaminophen (TYLENOL) suppository 650 mg, 650 mg, Rectal, Q4H PRN OR acetaminophen (TYLENOL) 160 MG/5ML solution 650 mg, 650 mg, Tube, Q4H PRN, Emiliano Donaldson MD, 650 mg at 01/29/252123 albuterol (PROVENTIL) (2.5 MG/3ML) 0.083% nebulizer solution 2.5 mg, 2.5 mg, Nebulization, BID PRN,Naya Gonzalez MD, 2.5 mg at 01/26/25 191 aspirin chewable tablet 81 mg, 81 mg, Tube, Daily, Emiliano Donaldson MD, 81 mg at 02/01/25 09 atorvastatin (LIPITOR) tablet 80 mg, 80 mg, Tube, Nightly at bedtime, Emiliano Donaldson MD, 80 mg at 01/31/252117 atropine 1 % ophthalmic solution 1 drop, 1 drop, Sublingual, TID PRN, Naya Gonzalez MD dextrose (GLUTOSE) 40 % oral gel 37.5-75 g, 15-30 g of dextrose, Oral, PRN, Devonte Kohler MD dextrose 10 % bolus infusion 125-250 mL, 125-250 mL, Intravenous, PRN, Devonte Kohler MD, Stopped at01/29/25 004 furosemide (LASIX) tablet 40 mg, 40 mg, Tube, Daily, Devonte Kohler MD, 40 mg at 02/01/25 09 glucagon injection 1 mg, 1 mg, Intramuscular, Once PRN, Devonte Kolher MD heparin (porcine) injection 5,000 Units, 5,000 Units, Subcutaneous, 2 times per day, Naya Gonzalez MD, 5,000 Units at 02/01/25 0905 hydrALAZINE (APRESOLINE) injection 10 mg, 10 mg, Intravenous, Q6H PRN, DONNIE Cruz, 10 mgat 01/24/25 0414 HYDROcodone-acetaminophen (NORCO) 5-325 MG tablet 1 tablet, 1 tablet, Tube, Q6H PRN, Emiliano Donaldson MD, 1 tablet at 01/22/25 6718 insulin glargine (LANTUS) injection 12 Units, 12 Units, Subcutaneous, QAM, Roseanna Ha MD, 12 Units at 02/01/25 0649 insulin glargine (LANTUS) injection 20 Units, 20 Units, Subcutaneous, Nightly at bedtime, Roseanna Ha MD insulin lispro (HUMALOG/ADMELOG) injection 1-18 Units, 1-18 Units, Subcutaneous, Q4H, Roseanna Ha MD, 2 Units at 02/01/25 1200 insulin lispro (HUMALOG/ADMELOG) injection 12 Units, 12 Units, Subcutaneous, 4x Daily WC, Roseanna Ha MD, 12 Units at 02/01/25 1159 labetalol (TRANDATE) injection 20 mg, 20 mg, Intravenous, Q6H PRN, LYNN Garner, 20 mg at 01/23/25 1314 lansoprazole (PREVACID SOLUTAB) disintegrating tablet 30 mg, 30 mg, Tube, QAM AC, Emiliano Donaldson MD, 30 mg at 02/01/25 0649 lidocaine 4 % patch 1 patch, 1 patch, Transdermal, Q24H, Phylicia Howard NP, 1 patch at 01/31/25 2121 lidocaine viscous (XYLOCAINE) 2 % solution 15 mL, 15 mL, Mouth/Throat, Once, Naya Gonzalez MD lisinopril (PRINIVIL) tablet 5 mg, 5 mg, Tube, Daily, Emiliano Donaldson MD, 5 mg at 02/01/25 0906 metoprolol tartrate (LOPRESSOR) tablet 25 mg, 25 mg, Tube, BID, DONNIE Cruz, 25 mg at 02/01/25 0907 naLOXone (NARCAN) injection 0.4 mg, 0.4 mg, Intravenous, PRN, Phylicia Howard NP ondansetron (ZOFRAN) injection 4 mg, 4 mg, Intravenous, Q8H PRN, Phylicia Howard NP oxyCODONE immediate release (ROXICODONE) tablet 5 mg, 5 mg, Tube, Q6H PRN, Emiliano Donaldson MD, 5 mgat 01/28/25 1604 protein supplement (PROSOURCE) packet 1 packet, 1 packet, Per G Tube, Daily, Ludwig Saucedo MD, 1 packet at 02/01/25 0907 scopolamine (TRANSDERM-SCOP) 1 MG/3DAYS patch 1 patch, 1 patch, Transdermal, Q72H, Naya Gonzalez MD, 1 patch at 01/30/25 1731 senna-docusate (SENOKOT-S) 8.6-50 MG tablet 1 tablet, 1 tablet, Tube, BID, Emiliano Donaldson MD, 1 tablet at 02/01/25 0907 sodium chloride 7 % nebulizer solution 4 mL, 4 mL, Nebulization, 2 times daily RT, Naya Gonzalez MD, 4 mL at 02/01/25 0907 TF diabetic w/Fiber (GLUCERNA 1.2) liquid, 120-356 mL/hr, Per G Tube, 4x Daily, Ludwig Saucedo MD, 300 mL/hr at 02/01/25 1200 Vitals: 02/01/25 1205 BP: 117/74 Pulse: (!) 113 Resp: Temp: 97.3 ??F (36.3 ??C) SpO2: 96% PHYSICAL EXAM: General: Well nourished, No acute distress Eye: PERRL, EOMI, Normal conjunctiva HENT: Normocephalic, Normal hearing, MMM Neck: Supple, C collar in place Lungs: Symmetric thoracic expansion, Non-labored breathing Heart: Extremities warm and well-perfused, No edema in extremities Abdomen: Soft, Nondistended, Nontender, No organomegaly, PEG in place w/o erythema or drainage Musculoskeletal: Normal passive ROM in bilateral upper and lower extremities; formal strength exam limited by patient's command following, strength grossly 5/5 in LUE/LLE, strength grossly 4/5 in RUE/RLE Skin: Skin is warm, dry and pink; No rashes on exposed skin Neurologic: -Dysarthric speech -Mild right facial droop -Facial sensation intact bilaterally -Altered sensation in bilateral feet to light touch, intact in BUE -No clonus; No increase in tone Psychiatric: Cooperative, calm ASSESSMENT AND PLAN Олег Watson is a 69 YO male now admitted to [facility] with right sided weakness, acute ischemic CVA, and chronic C2 fracture. CVA - small acute left-sided strokes in the left basal ganglia and adjacent temporal lobe as well as possible additional stroke in the inferomedial left temporal lobe Right hemiplegia C2 vertebral fracture Impaired mobility Decreased independence with ALDs -Provided extensive counseling on stroke pathology, prognosis, and rehabilitation to patient and family -Reviewed available notes from therapy services, case management, neurology, and the hospitalist -Recommend PT and OT: working on strength, endurance, balance, and techniques to improve safety andindependence with ADLs and mobility -No spasticity or neuropathic pain at present, continue to monitor -C-collar at all times per ortho -Neuro believe / increased dysarthria and right sided weakness to be related to brain swelling which may have peaked yesterday, updated CT head was without acute change vs previous - Continues to make progress with recovery working with therapies Dysphagia -Recommend DIRECTOR OF MEDICARE: work on cognition, speech and swallow -PEG tube placed 01/29, tolerated TF Management of remaining medical issues per primary/consulting services. Dispo -The patient has suffered a significant decline from their usual state of health and level of function and would benefit from an acute rehabilitation program with PT/OT/DIRECTOR OF MEDICARE 3h/d, at least 5d/wk to improve endurance, mobility, activities of daily living, cognition, and swallowing as appropriate. They will also require physiatric oversight to monitor medical conditions, skin/incisions, nutrition, and the rehab program. -I personally discussed the recommendations for further rehabilitation based on their current levelof independence with ADLs and functional mobility. We reviewed the available options for rehabilitation after discharge. The patient and family are agreement with discharge to acute inpatient rehab for further recovery. Patient/family's first choice is [facility] as it is closer to home. Open to [facility] if unable to go to [place]. Insurance initially denied acute inpatient rehab, appeal is pending, patient and family updated. PM&R will continue to follow peripherally and will re-evaluate as appropriate. Please contact via [facility] with any additional questions or concerns. * Susana Lamas RN - 02/01/2025 10:45 AM CDTSummary: IDR 02/01/25 8666 Interdisciplinary Group Conference Team Members Present Physician;Case/Care management;Nursing Physician present for group conference Dr. Saucedo Patient Current Status Paient current status Inpatient Barriers to Discharge Inpatient Review Barriers to Discharge Inpatient Post-Acute Authorization Needed;No Barrier- Medical Milestone in Process No Barrier- Medical Milestone in Process follow up PEG at goal, Family requesting speech reeval Post-Acute Authorization Needed follow up Awaiting on Appeal. Patient expects to be discharged to Patient expects to be discharged to: [facility] ([phone]) notified that the Appeal is still pending. Susana Lamas RN Case Manager ext. [phone] * Akiko Bettencourt, PACK OPERATOR - 02/01/2025 9:21 AM CDT OT Treatment Discharge Recommendation: Inpatient Rehab Patient is a good candidate for inpatient rehab as he remains motivated and demonstrates the ability to tolerate 3 hours of intense therapy per day. Patient was independent at baseline. In attempt toreturn to prior level of function, patient requires intense inpatient rehab to address following deficits: R sided weakness, acute decondition, balance deficits, cognition that impact his independence with self-care participation, mobility/transfers, and overall safety/independence. Due to the acute care setting, 3 hours of therapy is not feasible to be completed daily. Activity Recommendation for zipper setter chainstitch: Up with assist 1-2, gb, and walker. 02/01/25 0854 Therapy Visit OT Received On 02/01/25 Reason for admission Pt presents after fall from bed at home. 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 While at hospital, pt found to have acute right sided weakness and blurry vision.MRI demonstrates: small acute left-sided strokes in the left basal ganglia, adjacent temporal lobe,possible additional stroke in the inferomedial left temporal lobe, volume loss and probable small ve ssel disease. ......PMH: Acute myocardial infarction, Ankle fracture, fracture left fibula, Coronary artery disease, Diabetes, DKA, HTN, Eustachian tube dysfunction, HLD, Hx of CABG, Microalbuminuria, Myocardial infarction, Non- rheumatic mitral regurgitation .........Therapy orders: eval and treat.. ..Activity as tolerated, up at jahaira with collar Ordering Provider Phylicia Howard NP Verified Two Patient Identifiers Yes Patient consents to therapy Yes Acute Inpatient OT Time Calculation OT Start Time 853 OT Stop Time 920 OT Time Calculation (min) 27 min Precautions Spine Precautions Bending;Lifting;Twisting Neck Brace Applied Yes General Precautions Aspiration;Bed Alarm;Chair Alarm;Fall Risk Instructed on Precautions Yes;Needs reinforcement and education Other c-spine precautions with Kayla Cain at all times, PEG, telemetry, purewick, NPO Prior Function PLOF Comments Per eval, patient lives alone in a 1.5 story house, but resides on the main floor only. There are 2-3 steps to enter, no handrail. Bathroom has a tub/shower combo without a seat or grabbar, standard height toilet seat with vanity nearby for support. Patient owns a 2 wh/walker, but typically does not use any assistive devices. He states he is independent with all mobility, ADL's andIADL's, still drives and does errands. He reports no available assistance. Patient reports during the most recent fall he fell attempting to get out ofb bed. He reports another recent fall on the sidewalk last week, hitting his chest.........Daughter states that if necessary, her father can stay with her and the daughter's fiance. They live in a 2 story house, but patient will reside on main floor. There are 4 steps with a handrail to enter. Bathroom is a tub/shower combo with standard toilet and vanity. Daughter works shift stacker as an RN, but her fiance will be home as needed for 17/05 supervision. Subjective Subjective Pt supine in bed upon arrival to room. Pleasant and willing to participate in therapy session. Pain Pain Patient does not offer or c/o pain Activity Tolerance Endurance Quality Fair Limiting Factors to Endurance Weakness;Pain;Fatigue;Acute deconditioning Activity Tolerance Comments R sided weakness, R sided inattention Cognition Overall Cognitive Status Impaired Arousal/Alertness Appropriate responses to stimuli Attention Span Attends with cues to redirect Memory Decreased short term memory Orientation Level Oriented to situation;Oriented to person Following Commands Follows one step commands with repetition Safety Judgment Decreased awareness of need for assistance Awareness of Errors Assistance required to identify errors made Deficits Decreased awareness of deficits ADL UE Dressing Assistance Minimal UE Dressing Deficit Thread RUE;Thread LUE UE Dressing Comment Pt appears to have some Rt sided inattention requiring MIN A to cues to attend Rt UE when donning/doffing gown. LE Dressing Assistance Moderate LE Dressing Deficit Thread RLE into pants;Thread LLE into pants;Pull up over hips LE Dressing Comment Pt requires education on bridger strategy and how to implement figure four method to maintain c-spine precautions. Pt was able to briefly approach a figure four position to initiate threading LE's in pant hole but fatiguing quickly. Difficulty pulling them over hips d/t decreased standing balance when attempting to take UEs off walker. Toileting Assistance Maximal Toileting Deficit Perineal hygiene Toileting Comment Pt becomes incontinent of BM upon transferring to chair requiring MAX A for hygiene while standing as he is limited by impaired standing balance. Bed Mobility Supine to Sit Min assist to right Other (Comment) via log rolling, min A to get trunk upright Functional Transfers Sit to Stand Mod assist;Max assist Bed to Chair Mod assist Functional Mobility Instructed pt in sit to stands from EOB to walker with MOD A x1 providing verbal cues on hand placement. From EOB, pt took steps to chair with UE support of walker with MOD A x1 to manage walker, balance, and weight shifting to improve clearance of Rt LE. From chair, further sitto stand training ranging from MOD A to MAX A x1 as he fatigues. Needs mod cues to ensure appropriate Rt LE placement to improve accuracy. Pt participated in functional mobility within halls using walker providing MOD A x1 to MAX A x1 for balance, weight shifting, and to improve clearance of his RtLE as he fatigues. Chair follow for safety. Pt tends to lean more toward his Rt side needing verbalcues on to correct. Balance Sitting - Static CGA Sitting - Dynamic CGA Standing - Static Min Assist;Mod Assist;Support of both upper extremities Standing - Dynamic Mod Assist;Max Assist;Support of both upper extremities Other (Comment) increased physical assistance with fatigue, high falls risk due to R sided weakness, R lateral trunk lean OT Assessment OT Assessment Pt tolerated session fairly well today with good progression toward goals. Pt puttingforth good effort. Remains a high fall risk however as he is limited by Rt sided weakness, Rt sidedinattention, balance impairments, fatigue, c-spine precautions, and acute deconditioning. Pt will benefit from continued therapy at inpatient rehab to maximize his functional independence and safety prior to returning home. Modified Marlena Score Interval Daily Interval Score 0-6 4 Discharge Recommendation OT Recommendation Inpatient rehab Plan Progress Progressing toward goals OT Frequency 6 times/week OT - Next Appointment 02/01/25 If this is the last treatment note, it will serve as the discharge summary Yes End of Session End of Session Safety Call light within reach;Chair alarm set/activated;Nursing aware of session Education: Primary Learners Name: Олег Watson Primary Language of learner: Mosotho Patient was educated on stroke rehabilitation management precautions exercises transfers ADLs balance bed mobility therapy plan safety energy conservation adaptive skills. Education was completed one to one this date. Preference of learning new concepts one to one Barriers to education this date were physical impairment. Response to education this date needs follow up. * Soniya Hamm RN - 01/31/2025 11:24 PM CDT Problem: Pain control/comfort Goal: Promote pain control/comfort Outcome: Progressing Problem: Skin integrity, Impaired-wound Goal: Absence of new skin breakdown Outcome: Progressing Goal: Evidence of wound healing Outcome: Progressing Problem: Skin integrity, Impaired-pressure injury/ulcer Goal: Absence of new skin breakdown Outcome: Progressing Goal: Evidence of pressure injury/ulcer healing Outcome: Progressing Problem: Skin integrity, at risk Goal: Absence of new skin breakdown Outcome: Progressing Problem: Moisture associated skin impairment Goal: Reduce moisture exposure Outcome: Progressing Goal: Absence of new skin breakdown Outcome: Progressing Problem: Reduced risk for falls/injury Goal: Reduced Risk for Falls/Injury Outcome: Progressing * Roseanna Ha MD - 01/31/2025 1:59 PM CDT Progress Note Patient Name: Олег Watson Date of : 1955 Admission Date: 01/19/2025 Reason for Follow up: Type 2 diabetes on tube feed Subjective: Confused, no acute event overnight, Patient has been transitioned to bolus tube feed via PEG. Glucerna 1.2 NICOLE via G-tube. TF @ 0800, 1200, 1600, and 2000 Medications: Current Facility-Administered Medications Medication Dose Route Frequency Provider Last Rate Last Admin acetaminophen (TYLENOL) tablet 650 mg 650 mg Tube Q4H PRN Emiliano Donaldson MD Or acetaminophen (TYLENOL) suppository 650 mg 650 mg Rectal Q4H PRN Emiliano Donaldson MD Or acetaminophen (TYLENOL) 160 MG/5ML solution 650 mg 650 mg Tube Q4H PRN Emiliano Donaldson MD 650 mg at01/29/252123 albuterol (PROVENTIL) (2.5 MG/3ML) 0.083% nebulizer solution 2.5 mg 2.5 mg Nebulization BID PRN Naya Gonzalez MD 2.5 mg at 01/26/25 191 aspirin chewable tablet 81 mg 81 mg Tube Daily Emiliano Donaldson MD 81 mg at 01/31/25 0850 atorvastatin (LIPITOR) tablet 80 mg 80 mg Tube Nightly at bedtime Emiliano Donaldson MD 80 mg at 01/30/252011 atropine 1 % ophthalmic solution 1 drop 1 drop Sublingual TID PRN Naya Gonzalez MD dextrose (GLUTOSE) 40 % oral gel 37.5-75 g 15-30 g of dextrose Oral PRN Devonte Kohler MD dextrose 10 % bolus infusion 125-250 mL 125-250 mL Intravenous PRN Devonte Kohler MD Stopped at 01/29/25 0042 furosemide (LASIX) tablet 40 mg 40 mg Tube Daily Devonte Kohler MD 40 mg at 01/31/25 0850 glucagon injection 1 mg 1 mg Intramuscular Once PRN Devonte Kohler MD heparin (porcine) injection 5,000 Units 5,000 Units Subcutaneous 2 times per day Naya Gonzalez MD 5,000 Units at 01/31/25 0851 hydrALAZINE (APRESOLINE) injection 10 mg 10 mg Intravenous Q6H PRN DONNIE Cruz 10 mg at 01/24/25 0414 HYDROcodone-acetaminophen (NORCO) 5-325 MG tablet 1 tablet 1 tablet Tube Q6H PRN Emiliano Donaldson MD1 tablet at 01/22/25 2348 insulin glargine (LANTUS) injection 12 Units 12 Units Subcutaneous DANIEL Ha MD 12 Units at01/31/25 0603 insulin glargine (LANTUS) injection 24 Units 24 Units Subcutaneous Nightly at bedtime Roseanna Ha MD 24 Units at 01/30/252011 insulin regular (NOVOLIN R/HUMULIN R) injection 1-20 Units 1-20 Units Subcutaneous Q6H Roseanna Ha MD 2 Units at 01/31/25 0857 insulin regular (NOVOLIN R/HUMULIN R) injection 12 Units 12 Units Subcutaneous Q6H Roseanna Ha MD12 Units at 01/31/25 0855 labetalol (TRANDATE) injection 20 mg 20 mg Intravenous Q6H PRN LYNN Garner 20 mg at 01/23/25 1314 lansoprazole (PREVACID SOLUTAB) disintegrating tablet 30 mg 30 mg Tube QAM AC Emiliano Donaldson MD 30mg at 01/31/25 0603 lidocaine 4 % patch 1 patch 1 patch Transdermal Q24H Phylicia Howard NP 1 patch at 01/30/252012 lidocaine viscous (XYLOCAINE) 2 % solution 15 mL 15 mL Mouth/Throat Once Naya Gonzalez MD lisinopril (PRINIVIL) tablet 5 mg 5 mg Tube Daily Emiliano Donaldson MD 5 mg at 01/31/25 0850 metoprolol tartrate (LOPRESSOR) tablet 25 mg 25 mg Tube BID DONNIE Cruz 25 mg at 850 naLOXone (NARCAN) injection 0.4 mg 0.4 mg Intravenous PRN Phylicia Howard NP ondansetron (ZOFRAN) injection 4 mg 4 mg Intravenous Q8H PRN Phylicia Howard NP oxyCODONE immediate release (ROXICODONE) tablet 5 mg 5 mg Tube Q6H PRN Emiliano Donaldson MD 5 mg at 01/28/25 1604 protein supplement (PROSOURCE) packet 1 packet 1 packet Per G Tube Daily Ludwig Saucedo MD 1 packet at 01/31/25 1146 scopolamine (TRANSDERM-SCOP) 1 MG/3DAYS patch 1 patch 1 patch Transdermal Q72H Naya Gonzalez MD1 patch at 01/30/25 1731 senna-docusate (SENOKOT-S) 8.6-50 MG tablet 1 tablet 1 tablet Tube BID Emiliano Donaldson MD 1 tablet at 01/31/25 0850 sodium chloride 7 % nebulizer solution 4 mL 4 mL Nebulization 2 times daily RT Naya Gonzalez MD4 mL at 01/31/25 0851 TF diabetic w/Fiber (GLUCERNA 1.2) liquid 120-356 mL/hr Per G Tube 4x Daily Ludwig Saucedo MD 120 mL/hr at 01/31/25 1156 Objective: PHYSICAL EXAMINATION: GENERAL: well-developed, well-nourished .No apparent distress. TF via PEG tube VITAL SIGNS: As above Current Vitals: Weight: Last Recorded Weight 01/27/25 0400 Weight: 85.4 kg (188 lb 4.4 oz) Vitals: 01/31/25 1146 BP: 127/79 Pulse: 89 Resp: Temp: SpO2: (!) 89% REVEIW OF SYSTEMS Unobtainable given his condition Labs: Recent Results (from the past 24 hours) POCT glucose Collection Time: 01/30/25 3:40 PM Result Value Ref Range GLUCOSE POC 244 (H) 70 - 109 POCT glucose Collection Time: 01/30/25 4:01 PM Result Value Ref Range GLUCOSE POC 274 (H) 70 - 109 POCT glucose Collection Time: 01/30/25 8:17 PM Result Value Ref Range GLUCOSE POC 179 (H) 70 - 109 POCT glucose Collection Time: 01/31/25 12:30 AM Result Value Ref Range GLUCOSE POC 87 70 - 109 POCT glucose Collection Time: 01/31/25 3:17 AM Result Value Ref Range GLUCOSE POC 72 70 - 109 POCT glucose Collection Time: 01/31/25 5:51 AM Result Value Ref Range GLUCOSE POC 167 (H) 70 - 109 POCT glucose Collection Time: 01/31/25 7:49 AM Result Value Ref Range GLUCOSE POC 170 (H) 70 - 109 POCT glucose Collection Time: 01/31/25 11:46 AM Result Value Ref Range GLUCOSE POC 192 (H) 70 - 109 Recent Labs Lab 01/30/25 1601 01/30/25 2017 01/31/25 0030 01/31/25 0317 01/31/25 0551 01/31/25 0749 01/31/25 1146 GLUCOSEPOC 274* 179* 87 72 167* 170* 192* Assessment and Plan Uncontrolled type 2 diabetes On tube feed Current use of insulin Outpatient endocrine provider: Tiffani Sen INSTALLATION SERVICE REPRESENTATIVE, [facility] in [place] A1c here 12.3% His blood sugar log was reviewed, currently patient is on bolus tube feed via PEG. Glucerna 1.2 CALvia G-tube. TF @ 0800, 1200, 1600, and 2000, since he is on tube feed every 4 hours during the day I will change his insulin before his bolus tube feed to decrease the risk of hypoglycemia. --- Lantus 10 units in the morning and 24 units at night -- Humalog 12 units before tube feed Q4H ; give half the units if blood sugar is less than 120 holdthe dose if tube feed is interrupted or stopped ---Humalog correctional insulin 2:50> 150 q4H --- Accu-Chek every 4 hour Call parameters in place If patient's tube feed is interrupted or stopped; please start him on D10 W at same rate to keep blood sugar between 140-180 and call [facility] endocrinology ROSEANNA HA MD 01/31/2025 * Ludwig Saucedo MD - 01/31/2025 12:15 PM CDT Images from the original note were not included. [employer] Hospitalist Progress note Chief Complain: Acute CVA ASSESSMENT /PLAN: Олег Watson is a 69-year-old male with PMH of uncontrolled type 2 diabetes mellitus, HTN, MA, CABG, and mitral regurgitation presented to ED on 01/19/2025 as a category 3 trauma with ground-level fall. He was found to have chronic C2 fracture, no acute injuries. Stat stroke was called on 01/20/2025nd MRI brain demonstrated left-sided ischemic stroke in the basal ganglia and adjacent temporal lobe. Patient was evaluated by neurovascular team, ortho-spine, and PM&R. He failed bedside swallow and also failed DIRECTOR OF MEDICARE eval. Currently has Keofed with tube feeds, DIRECTOR OF MEDICARE continues to follow for advancing diet versus PEG tube. PT/OT recommending inpatient rehab, referrals have been sent by case management. Hospitalist team was contacted on 01/24/2025 to take over as primary service. . 1 Chronic C2 fracture, ground-level fall 01/19/2025 Admitted by trauma service, transition to hospitalist 01/24/2025 Kayla Cain cervical collar at all times per ortho-spine PT/OT recommending inpatient rehab, referrals pending Pain control Fall precautions Wean oxygen as tolerated Outpatient follow-up with Dr. Montanez 2. Acute ischemic stroke, RUE/RLE weakness, dysarthria, dysphagia Left basal ganglia and adjacent temporal lobe small acute strokes on MRI from 01/20/2025 Failed bedside swallow, NPO per DIRECTOR OF MEDICARE, discussed with speech PEG tube okay with family -plan for P PEG placement 01/29 Increase TF to goal Stroke neuro input appreciated PM&R following, appreciate their recommendations, Continue ASA and statin Monitor on telemetry PT/OT recommending inpatient rehab, referrals pending Will need to make sure pt's feeding through PEG at goal prior to discharge. 3. Uncontrolled type II diabetes management per endocrinology Patient's home regimen includes Lantus and lispro, patient reports compliance Most recent HbA1c 12.3% from 01/19/2025 [place] endocrinology consulted, appreciate their recommendations NG tube feeds were on hold as he pulled out NG tube yesterday. Continue D5 normal saline for now. Will defer to endocrinology to manage insulin so as to avoid duplication of orders Hypoglycemic last night 4. HTN Continue to monitor hypertension . SBP goal to < 140. 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 Continue lisinopril, Will increase metoprolol dose to better control heart rate and blood pressure 5. Hx MA, CABG, mitral regurgitation Continue aspirin statin beta-jazlyn 6 acute on chronic diastolic HFpEF EF of 63% echo done on 12/25 Chest x-ray with pulmonary congestion Continue Lasix 40 mg daily 7. Increase secretions responding well to hypertonic saline scopolamine patch reevaluate need for scopolamine patch in 2 to 3 days chest x-ray noted congestion continue Lasix Increase activit OOB TID Body mass index is 28.73 kg/m??. CODE STATUS: Full code Discussed with daughter and discussed with speech orders for PEG placed PEG will be placed on Wednesday Body mass index is 26.26 kg/m??. DVT Prophylaxis: Continue heparin DC heparin Wednesday night Code Status: Full Code Disposition/Discharge plan: PEG on Wednesday probably couple of days after that I have ordered, reviewed and interpreted all Labs . I have reviewed and interpreted all Imaging . Ihave reviewed,ordered and prescribed all necessary medications. I have reviewed and interpreted allconsultant notes. Case was discussed w/ the patient and/or POA. All questions were answered & concerns addressed. Case was also discussed with case management AND SUPERVISOR EPOXY FABRICATION. LUDWIG SAUCEDO MD 12:15 PM 01/31/2025 SUBJECTIVE Patient seen and examined. Secretions improving today more awake and alert REVIEW OF SYSTEMS Negative for 12 system except mentioned SUBJECTIVE OBJECTIVE Wt Readings from Last 3 Encounters: 01/27/25 85.4 kg (188 lb 4.4 oz) 11/01/24 93.4 kg (206 lb) 10/17/24 95.3 kg (210 lb) Temp: 97.7 ??F (36.5 ??C) BP Readings from Last 3 Encounters: 01/31/25 127/79 01/11/25 (!) 118/93 12/14/24 108/84 Pulse Readings from Last 3 Encounters: 01/31/25 89 01/11/25 92 12/14/24 96 PHYSICAL EXAMINATION: General Appearance: Moderately built and nourished. head: atraumatic, normocephalic. Eyes: Pupils equal and reactive to light. No discharge.no nystagmus. Ears: Normal Tympanic membrane and external ear canal . Throat: Lips, mucosa, and tongue,teeth and gums normal. Neck: Has collar Lungs: Clear to auscultation bilaterally, respirations unlabored . No wheeze or rhonchi present. Nochest wall tenderness. Heart: S1 and S2 normal, no murmur, rub or gallop . Abdomen: Soft,non-tender, bowel sounds active all four quadrants, no masses, no organomegaly detected. Extremities: Extremities normal, atraumatic, no cyanosis or edema or clubbing Pulses: 2+ and symmetric all extremities Lymph nodes: Cervical, supraclavicular, and axillary nodes normal Neurologic: CNII-XII intact. Awake. Rt Weakness LABS: Recent Labs 01/29/25 0701/30/25 1319 WBC 8.33 -- HGB 14.2 12.2 HCT 43.7 38.3 MCV 92.4 -- PLT 217 -- RBC 4.73 -- Recent Labs 01/29/25 0704 01/30/25 0310 CO2 34.3* 31.8 CL 104 106 GLU 173* -- K 3.6 4.1 NA 141 140 BUN 24* 23* No intake or output data in the 24 hours ending 01/31/25 1215 Microbiology Results (last 14 days) No results found for the last 336 hours. Radiology MEDICATIONS Scheduled medications aspirin 81 mg Tube Daily atorvastatin 80 mg Tube Nightly at bedtime furosemide 40 mg Tube Daily heparin (porcine) 5,000 Units Subcutaneous 2 times per day insulin glargine 12 Units Subcutaneous QAM insulin glargine 24 Units Subcutaneous Nightly at bedtime insulin regular 1-20 Units Subcutaneous Q6H insulin regular 12 Units Subcutaneous Q6H lansoprazole 30 mg Tube QAM AC lidocaine 1 patch Transdermal Q24H lidocaine viscous 15 mL Mouth/Throat Once lisinopril 5 mg Tube Daily metoprolol tartrate 25 mg Tube BID protein supplement 1 packet Per G Tube Daily scopolamine 1 patch Transdermal Q72H senna-docusate 1 tablet Tube BID sodium chloride 4 mL Nebulization 2 times daily RT TF diabetic w/Fiber 120-356 mL/hr Per G Tube 4x Daily Infusion PRN acetaminophen OR acetaminophen OR acetaminophen, albuterol, atropine, glucose, dextrose 10 % bolus, glucagon, hydrALAZINE, HYDROcodone-acetaminophen, labetalol, naLOXone, ondansetron, oxyCODONE immediate release * Susana Lamas RN - 01/31/2025 10:50 AM CDTSummary: IDR 01/31/25 1404 Interdisciplinary Group Conference Team Members Present Physician;Case/Care management;Nursing Physician present for group conference Dr. Saucedo Patient Current Status Paient current status Inpatient Barriers to Discharge Inpatient Review Barriers to Discharge Inpatient Complex - Social and/or Medical;Post-Acute Authorization Needed Complex - Social and/or Medical follow up Awaiting on TF to reach goal. PEG in place. Stroke Neuro,Endocrinology, Speech, Dietitian following. Post-Acute Authorization Needed follow up Appeal still pending. Patient expects to be discharged to Patient expects to be discharged to: Inpatient Rehab Facility ([facility]) [facility] ([phone]) with [facility] notified the insurance Appeal is still pending. State she will update CM when she hear back. Susana Lamas RN CM 5 [employer] [place]. [phone] * Jo Soliman RN - 01/31/2025 9:22 AM CDT Problem: Discharge Planning Goal: Knowledge of discharge instructions Outcome: Progressing Problem: Pain control/comfort Goal: Promote pain control/comfort Outcome: Progressing Problem: Skin integrity, Impaired-wound Goal: Absence of new skin breakdown Outcome: Progressing Goal: Evidence of wound healing Outcome: Progressing Problem: Skin integrity, Impaired-pressure injury/ulcer Goal: Absence of new skin breakdown Outcome: Progressing Goal: Evidence of pressure injury/ulcer healing Outcome: Progressing * Corrina Mullen RD - 01/31/2025 9:20 AM CDT CLINICAL DIETITIAN ASSESSMENT NUTRITION ASSESSMENT Past Medical History: Diagnosis Date Acute myocardial infarction ([facility]) Ankle fracture Closed; fracture left fibula Chest pain Closed fracture of distal end of fibula 05/18/2013 Date Onset: 05/18/2013 Coronary artery disease Diabetes ([facility]) Diabetes mellitus, type 2 ([facility]) Diabetic ketoacidosis without coma associated with diabetes mellitus due to underlying condition ([facility]) 03/19/2023 DKA (diabetic ketoacidosis) ([facility]) 03/19/2023 Essential hypertension 07/26/2018 Eustachian tube dysfunction 06/13/2015 Date Onset: 06/13/2015 HLD (hyperlipidemia) Hx of CABG Microalbuminuria Myocardial infarction ([facility]) 07/11/2018 Non-rheumatic mitral regurgitation Noncompliance with medication regimen 12/24/2021 Situational stress 06/13/2015 Interval History (01/31/2025): S/p PEG placement 01/29/25. Transitioned to bolus feeds 01/30/25. Continuing to advance to goal bolus volume. Food allergies/intolerances: NKFA per EHR Cultural/Alevism food preferences: None reported in EHR Edema: no edema noted per EHR GI: abdomen WDL with positive bowel sounds per planer chain offbearer; last BM documented on 01/22/25 (no BM x9 days; has order for scheduled senokot-S) Chewing/swallowing problems: NPO Skin: DTI to right heel Nutrition-focused physical findings (01/31/25): Deferred at this time due to remote assessment; RD toattempt NFPE on follow-up as able. Labs: Reviewed. No nutrition-related concerns noted at this time. Recent Labs Lab 01/30/25 1540 01/30/25 1601 01/30/25 2017 01/31/25 0030 01/31/25 0317 01/31/25 0551 01/31/25 0749 GLUCOSEPOC 244* 274* 179* 87 72 167* 170* Recent Labs Lab 01/26/25 0156 01/27/25 0210 01/29/25 0704 01/30/25 0310 NA 139 140 141 140 K 3.7 3.8 3.6 4.1 MAGNESIUM 2.4 2.5 2.4 -- PHOS 3.7 3.5 2.5 -- BUN 36* 41* 24* 23* CR 1.33* 1.29 1.15 1.19 GFREST 58* 60* 69* 67* GLU 183* 122* 173* -- HGB A1C Date Value Ref Range Status 01/19/2025 12.3 (H) <5.7 % Final 05/03/2024 12.8 % Final Meds: Reviewed. No adjustments to TF indicated at this time. aspirin 81 mg Tube Daily atorvastatin 80 mg Tube Nightly at bedtime furosemide 40 mg Tube Daily heparin (porcine) 5,000 Units Subcutaneous 2 times per day insulin glargine 12 Units Subcutaneous QAM insulin glargine 24 Units Subcutaneous Nightly at bedtime insulin regular 1-20 Units Subcutaneous Q6H insulin regular 12 Units Subcutaneous Q6H lansoprazole 30 mg Tube QAM AC lidocaine 1 patch Transdermal Q24H lidocaine viscous 15 mL Mouth/Throat Once lisinopril 5 mg Tube Daily metoprolol tartrate 25 mg Tube BID protein supplement 1 packet Per G Tube Daily scopolamine 1 patch Transdermal Q72H senna-docusate 1 tablet Tube BID sodium chloride 4 mL Nebulization 2 times daily RT TF diabetic w/Fiber 120-356 mL/hr Per G Tube 4x Daily Anthropometrics: Last 5 Recorded Weights 01/19/25 19101/19/25 19101/26/25 0424 01/27/25 0400 Weight: 93.4 kg (206 lb) 93.4 kg (206 lb) 91 kg (200 lb 9.9 oz) 85.4 kg (188 lb 4.4 oz) Weight status: -5.6 kg x 1 day 01/27/25; prior weights were stated or method was not documented; current weight obtained via bedscale Height: 180.3 cm Actual Body Weight (ABW): 85.4 kg Rogers Body Weight (IBW): 78 kg (ABW is 109% of IBW) Dosing Weight (DW): 85.4 kg Body Mass Index (BMI): 26.2 kg/m?? (WNL for age) Estimated Nutrient Needs: Calories: 0901-3278 kcal/day based on Levy-St Jeor x 1-1.25 Protein: 94-117 gm/day based on 1.2-1.5 gm/kg, using IBW Carbohydrate: 206-257 gm/day based on 50% of total kcal from carbohydrate Fluid: 1500 mL/day based on minimum intake recommendation for older adults Current diet order: Diet NPO effective now Tube Feeding: Glucerna 1.2 NICOLE via G-tube. Bolus feedings of 120-356 mL at 0800, 1200, 1600, and 2000; advancing by 60 mL every other feeding Protein Modular: 1 packet(s) Prosource daily Free Water Flushes: 50 mL before and after each bolus feeding Current diet appropriate? Yes; NPO Current intake sufficient to meet nutritional needs? TF advancing to goal. Fluid intake appears adequate for hydration. Based on review of TF history per EHR, patient received an average of 460 mL TF daily over the past3 days. 3-day average TF provision with 1 packets Prosource daily suggests an average intake of 612kcal/day (37% of estimated needs) and 43 gm/day protein (46% of estimated needs). Pain affecting PO intake? N/A Nutrition Education: no needs identified at this time NUTRITION DIAGNOSIS Inadequate energy and protein intake related to inability to consume nutrients by mouth as evidenced by patient is currently NPO per DIRECTOR OF MEDICARE recommendations, swallowing difficulty post-stroke. (01/31/25; ongoing) NUTRITION INTERVENTION Nutrition prescription: Tube Feeding: Glucerna 1.2 NICOLE via G-tube. Bolus feedings of 356 mL at 0800, 1200. 1600. 1999. Protein Modular: Administer 1 packet(s) Prosource once daily to assist with meeting estimated protein requirement. Free Water Flushes: 50 mL before and after each bolus feeding Nutrient provision from recommended TF (based on dosing weight of 85.4 kg): NICOLE: 1769 kcal/day (20.7 kcal/kg/day) PRO: 100 gm/day (1.3 gm/kg/day using IBW of 78 kg) CHO: 162 gm/day (37% of kcal provided) FLUID: 1636 mL/day free water from TF, free water flushes and free water from modular administration Recommended TF meets 100% estimated kcal needs and 100% estimated protein needs with free water adequate for hydration. Plan: 1. Provide bolus TF with Glucerna 1.2 NICOLE via G-tube at 0800, 1200, 1600, 2000 daily. Continue to advance by 60 mL every other feeding as tolerated to goal of 356 mL per feeding. 2. Free water flush: 50 mL before and after each bolus feeding. 3. Provide 1 packet(s) of Prosource once daily via G-tube. Administer per environmental air specialist instructions. 4. Labs: BMP, Mg and Phos daily. Replete electrolytes as indicated. 5. Weigh patient at least twice weekly. Discharge nutrition plan: Discharge needs assessed. Will provide/update discharge instructions as needed. MONITORING/EVALUATION 01/26/2025 Goals: 1. TF intake will meet at least 90% of goal energy and protein needs based on 72-hour intake average per review of the TF pump and EHR at follow up. - Goal not achieved, Continue 01/31/2025 Goals: 1. TF intake will meet at least 90% of goal energy and protein needs based on 72-hour intake average per review of the TF pump and EHR at follow up. CORRINA MULLEN RD, LDN * Eliezer Patrick RN - 01/31/2025 2:17 AM CDT Problem: Discharge Planning Goal: Knowledge of discharge instructions Outcome: Progressing Problem: Pain control/comfort Goal: Promote pain control/comfort Outcome: Progressing Problem: Skin integrity, Impaired-wound Goal: Absence of new skin breakdown Outcome: Progressing Goal: Evidence of wound healing Outcome: Progressing Problem: Skin integrity, Impaired-pressure injury/ulcer Goal: Absence of new skin breakdown Outcome: Progressing Goal: Evidence of pressure injury/ulcer healing Outcome: Progressing Problem: Skin integrity, at risk Goal: Absence of new skin breakdown Outcome: Progressing Problem: Moisture associated skin impairment Goal: Reduce moisture exposure Outcome: Progressing Goal: Evidence of wound healing Outcome: Progressing Goal: Evidence of pressure injury/ulcer healing Outcome: Progressing Goal: Absence of new skin breakdown Outcome: Progressing Problem: Reduced risk for falls/injury Goal: Reduced Risk for Falls/Injury Outcome: Progressing Goal: Reduced Risk of Confusion (Acute vs Chronic) Outcome: Progressing Goal: Reduced Risk of Symptomatic Depression Outcome: Progressing Goal: Reduced Risk of Altered Elimination Outcome: Progressing Goal: Reduced Risk of Dizziness/Vertigo/Balance Outcome: Progressing Goal: Reduced Risk of Polypharmacy Outcome: Progressing Problem: Pain Goal: Patient's pain/discomfort is manageable Description: Assess and monitor patient's pain using appropriate pain scale. Collaborate with interdisciplinary team and initiate plan and interventions as ordered. Re-assess patient's pain level 30 - 60 minutes after pain management intervention. Outcome: Progressing Problem: Safety Goal: Patient will be injury free during hospitalization Description: Assess and monitor vitals signs, neurological status including level of consciousness and orientation. Assess patient's risk for falls and implement fall prevention plan of care and interventions per hospital policy. Ensure arm band on, uncluttered walking paths in room, adequate room lighting, call light and overbed table within reach, bed in low position, wheels locked, side rails up per policy, and non-skid footwear provided. Outcome: Progressing Problem: Daily Care Goal: Daily care needs are met Description: Assess and monitor ability to perform self care and identify potential discharge needs. Outcome: Progressing Problem: Psychosocial Needs Goal: Demonstrates ability to cope with hospitalization/illness Description: Assess and monitor patients ability to cope with his/her illness. Outcome: Progressing Goal: Collaborate with patient/family/caregiver to identify patient specific goals for this hospitalization Outcome: Progressing Problem: Discharge Barriers Goal: Patient's discharge needs are met Description: Collaborate with interdisciplinary team and initiate plans and interventions as needed. Outcome: Progressing Problem: Aspiration - Risk of Goal: Absence of aspiration Outcome: Progressing Problem: Mobility - Impaired Goal: Able to achieve maximum mobility level Outcome: Progressing Problem: Mood - Altered Goal: Alleviation of anxiety Outcome: Progressing Goal: Decrease in depressive symptoms Outcome: Progressing Problem: THROMBOLYTIC COMPLICATION - RISK OF ANGIOEDEMA AND BLEEDING Goal: Absence of angioedema Outcome: Progressing Goal: Absence of bleeding Outcome: Progressing Problem: Tissue Perfusion - Cerebral, Altered Goal: Absence of continued neurologic deterioration signs and symptoms Outcome: Progressing Problem: Venous Thromboembolism - Risk of Goal: Absence of venous thromboembolism Outcome: Progressing Problem: Verbal Communication - Impaired Goal: Effective communication Outcome: Progressing Goal: Increased social interaction Outcome: Progressing Problem: Discharge Planning Goal: Knowledge of discharge instructions Outcome: Progressing * Roseanna Ha MD - 01/30/2025 2:35 PM CDT Progress Note Patient Name: Олег Watson Date of : 1955 Admission Date: 01/19/2025 Reason for Follow up: Type 2 diabetes on tube feed Subjective: His tube feed was started today in the morning, patient was resting comfortably in the bed, denies any complaints Medications: Current Facility-Administered Medications Medication Dose Route Frequency Provider Last Rate Last Admin acetaminophen (TYLENOL) tablet 650 mg 650 mg Tube Q4H PRN Emiliano Donaldson MD Or acetaminophen (TYLENOL) suppository 650 mg 650 mg Rectal Q4H PRN Emiliano Donaldson MD Or acetaminophen (TYLENOL) 160 MG/5ML solution 650 mg 650 mg Tube Q4H PRN Emiliano Donaldson MD 650 mg at01/29/252123 albuterol (PROVENTIL) (2.5 MG/3ML) 0.083% nebulizer solution 2.5 mg 2.5 mg Nebulization BID PRN Naya Gonzalez MD 2.5 mg at 01/26/25 191 aspirin chewable tablet 81 mg 81 mg Tube Daily Emiliano Donaldson MD 81 mg at 01/30/25 08 atorvastatin (LIPITOR) tablet 80 mg 80 mg Tube Nightly at bedtime Emiliano Donaldson MD 80 mg at 01/29/252123 atropine 1 % ophthalmic solution 1 drop 1 drop Sublingual TID PRN Naya Gonzalez MD dextrose (GLUTOSE) 40 % oral gel 37.5-75 g 15-30 g of dextrose Oral PRN Devonte Kohler MD dextrose 10 % bolus infusion 125-250 mL 125-250 mL Intravenous PRN Devonte Kohler MD Stopped at 01/29/25 0042 furosemide (LASIX) tablet 40 mg 40 mg Tube Daily Devonte Kohler MD 40 mg at 01/30/25 0823 glucagon injection 1 mg 1 mg Intramuscular Once PRN Devonte Kohler MD heparin (porcine) injection 5,000 Units 5,000 Units Subcutaneous 2 times per day Naya Gonzalez MD 5,000 Units at 01/30/25 0823 hydrALAZINE (APRESOLINE) injection 10 mg 10 mg Intravenous Q6H PRN DONNIE Cruz 10 mg at 01/24/25 0414 HYDROcodone-acetaminophen (NORCO) 5-325 MG tablet 1 tablet 1 tablet Tube Q6H PRN Emiliano Donaldson MD1 tablet at 01/22/25 3128 insulin glargine (LANTUS) injection 12 Units 12 Units Subcutaneous QA Roseanna Ha MD 12 Units at01/30/25 1033 insulin glargine (LANTUS) injection 24 Units 24 Units Subcutaneous Nightly at bedtime Roseanna Ha MD insulin regular (NOVOLIN R/HUMULIN R) injection 1-20 Units 1-20 Units Subcutaneous Q6H Roseanna Ha MD insulin regular (NOVOLIN R/HUMULIN R) injection 12 Units 12 Units Subcutaneous Q6H Roseanna Ha MD labetalol (TRANDATE) injection 20 mg 20 mg Intravenous Q6H PRN LYNN Garner 20 mg at 01/23/25 1314 lansoprazole (PREVACID SOLUTAB) disintegrating tablet 30 mg 30 mg Tube QAM AC Emiliano Donaldson MD 30mg at 01/30/25 0620 lidocaine 4 % patch 1 patch 1 patch Transdermal Q24H Phylicia Howard NP 1 patch at 01/28/25 2112 lidocaine viscous (XYLOCAINE) 2 % solution 15 mL 15 mL Mouth/Throat Once Naya Gonzalez MD lisinopril (PRINIVIL) tablet 5 mg 5 mg Tube Daily Emiliano Donaldson MD 5 mg at 01/30/25 0823 metoprolol tartrate (LOPRESSOR) tablet 25 mg 25 mg Tube BID DONNIE Cruz 25 mg at 823 naLOXone (NARCAN) injection 0.4 mg 0.4 mg Intravenous PRN Phylicia Howard NP ondansetron (ZOFRAN) injection 4 mg 4 mg Intravenous Q8H PRN Phylicia Howard NP oxyCODONE immediate release (ROXICODONE) tablet 5 mg 5 mg Tube Q6H PRN Emiliano Donaldson MD 5 mg at 01/28/25 1604 [START ON 01/31/2025] protein supplement (PROSOURCE) packet 1 packet 1 packet Per G Tube Daily Ludwig Saucedo MD scopolamine (TRANSDERM-SCOP) 1 MG/3DAYS patch 1 patch 1 patch Transdermal Q72H Naya Gonzalez MD1 patch at 01/27/25 1652 senna-docusate (SENOKOT-S) 8.6-50 MG tablet 1 tablet 1 tablet Tube BID Emiliano Donaldson MD 1 tablet at 01/30/25 0823 sodium chloride 7 % nebulizer solution 4 mL 4 mL Nebulization 2 times daily RT Naya Gonzalez MD4 mL at 01/30/25 0810 TF diabetic w/Fiber (GLUCERNA 1.2) liquid 120-356 mL/hr Per G Tube 4x Daily Ludwig Saucedo MD Objective: PHYSICAL EXAMINATION: GENERAL: well-developed, well-nourished .No apparent distress. TF via PEG tube VITAL SIGNS: As above Current Vitals: Weight: Last Recorded Weight 01/27/25 0400 Weight: 85.4 kg (188 lb 4.4 oz) Vitals: 01/30/25 1222 BP: (!) 145/80 Pulse: 100 Resp: Temp: SpO2: 91% REVEIW OF SYSTEMS 12 point review of system was negative except mentioned in subjective Labs: Recent Results (from the past 24 hours) POCT glucose Collection Time: 01/29/25 6:49 PM Result Value Ref Range GLUCOSE POC 301 (H) 70 - 109 POCT glucose Collection Time: 01/29/25 8:15 PM Result Value Ref Range GLUCOSE POC 261 (H) 70 - 109 POCT glucose Collection Time: 01/30/25 12:27 AM Result Value Ref Range GLUCOSE POC 277 (H) 70 - 109 BMP WITHOUT GLUCOSE Collection Time: 01/30/25 3:10 AM Result Value Ref Range SODIUM S/P/B 140 136 - 145 MMOL/L POTASSIUM S/P/B 4.1 3.5 - 5.1 MMOL/L CHLORIDE S/P/B 106 97 - 115 MMOL/L CO2 31.8 21.0 - 32.0 MMOL/L BUN 23 (H) 7 - 18 MG/DL CREATININE S/P/B 1.19 0.70 - 1.30 MG/DL CALCIUM S/P/B 9.2 8.5 - 10.1 MG/DL ANION GAP 2.2 2.0 - 10.0 MMOL/L GFR ESTIMATE 67 (L) >90 ML/MIN/1.73 M2 GFR NOTES GFR REFERENCES: POCT glucose Collection Time: 01/30/25 4:20 AM Result Value Ref Range GLUCOSE POC 247 (H) 70 - 109 POCT glucose Collection Time: 01/30/25 9:57 AM Result Value Ref Range GLUCOSE POC 309 (H) 70 - 109 POCT glucose Collection Time: 01/30/25 12:21 PM Result Value Ref Range GLUCOSE POC 327 (H) 70 - 109 HEMOGLOBIN AND HEMATOCRIT Collection Time: 01/30/25 1:19 PM Result Value Ref Range HGB 12.2 12.0 - 16.0 G/DL HCT 38.3 37.0 - 52.0 % Recent Labs Lab 01/29/25 1142 01/29/25 1849 01/29/25201401/30/25 0027 01/30/25 0420 01/30/25 0957 01/30/25 1221 GLUCOSEPOC 165* 301* 261* 277* 247* 309* 327* Assessment and Plan Uncontrolled type 2 diabetes On tube feed Current use of insulin Outpatient endocrine provider: Tiffani Sen NP, [facility] in [place] A1c here 12.3% His blood sugar log was reviewed, since his tube feed has been started, his insulin requirement hasincreased. Will start him on scheduled insulin, he received 10 units of Lantus in the morning. And currently on Humalog every 4 hour. Will switch him to regular insulin every 6 hours for better glycemic controlalong with basal insulin --- Lantus 10 units in the morning and 24 units at night -- Regular insulin 12 units every 6 hour, give half the units if blood sugar is less than 120 hold the dose if tube feed is interrupted or stopped --- Regular correctional insulin 2:50> 150 two 6-hour --- Accu-Chek every 6 hour Call parameters in place If patient's tube feed is interrupted or stopped; please start him on D10 W at same rate to keep blood sugar between 140-180 and call [facility] endocrinology ROSEANNA HA MD 01/30/2025 * Ludwig Saucedo MD - 01/30/2025 12:05 PM CDT Images from the original note were not included. [employer] Hospitalist Progress note Chief Complain: Acute CVA ASSESSMENT /PLAN: Олег Watson is a 69-year-old male with PMH of uncontrolled type 2 diabetes mellitus, HTN, MA, CABG, and mitral regurgitation presented to ED on 01/19/2025 as a category 3 trauma with ground-level fall. He was found to have chronic C2 fracture, no acute injuries. Stat stroke was called on 3/29/2025and MRI brain demonstrated left-sided ischemic stroke in the basal ganglia and adjacent temporal lobe. Patient was evaluated by neurovascular team, ortho-spine, and PM&R. He failed bedside swallow and also failed DIRECTOR OF MEDICARE eval. Currently has Keofed with tube feeds, DIRECTOR OF MEDICARE continues to follow for advancing diet versus PEG tube. PT/OT recommending inpatient rehab, referrals have been sent by case management. Hospitalist team was contacted on 01/24/2025 to take over as primary service. . 1 Chronic C2 fracture, ground-level fall 01/19/2025 Admitted by trauma service, transition to hospitalist 01/24/2025 [place] J cervical collar at all times per ortho-spine PT/OT recommending inpatient rehab, referrals pending Pain control Fall precautions Wean oxygen as tolerated Outpatient follow-up with Dr. Montanez 2. Acute ischemic stroke, RUE/RLE weakness, dysarthria, dysphagia Left basal ganglia and adjacent temporal lobe small acute strokes on MRI from 01/20/2025 Failed bedside swallow, NPO per DIRECTOR OF MEDICARE, discussed with speech PEG tube okay with family -plan for P PEG placement 01/29 Increase TF to goal Stroke neuro input appreciated PM&R following, appreciate their recommendations, Continue ASA and statin Monitor on telemetry PT/OT recommending inpatient rehab, referrals pending Will need to make sure pt's feeding through PEG at goal prior to discharge. 3. Uncontrolled type II diabetes management per endocrinology Patient's home regimen includes Lantus and lispro, patient reports compliance Most recent HbA1c 12.3% from 01/19/2025 [place] endocrinology consulted, appreciate their recommendations NG tube feeds were on hold as he pulled out NG tube yesterday. Continue D5 normal saline for now. Will defer to endocrinology to manage insulin so as to avoid duplication of orders Hypoglycemic last night 4. HTN Continue to monitor hypertension . SBP goal to < 140. FDC SBP goal < 130/70. Continue lisinopril, Will increase metoprolol dose to better control heart rate and blood pressure 5. Hx MA, CABG, mitral regurgitation Continue aspirin statin beta-jazlyn 6 acute on chronic diastolic HFpEF EF of 63% echo done on 12/25 Chest x-ray with pulmonary congestion Continue Lasix 40 mg daily 7. Increase secretions responding well to hypertonic saline scopolamine patch reevaluate need for scopolamine patch in 2 to 3 days chest x-ray noted congestion continue Lasix Increase activit OOB TID Body mass index is 28.73 kg/m??. CODE STATUS: Full code Discussed with daughter and discussed with speech orders for PEG placed PEG will be placed on Wednesday Body mass index is 26.26 kg/m??. DVT Prophylaxis: Continue heparin DC heparin Wednesday night Code Status: Full Code Disposition/Discharge plan: PEG on Wednesday probably couple of days after that I have ordered, reviewed and interpreted all Labs . I have reviewed and interpreted all Imaging . Ihave reviewed,ordered and prescribed all necessary medications. I have reviewed and interpreted allconsultant notes. Case was discussed w/ the patient and/or POA. All questions were answered & concerns addressed. Case was also discussed with case management AND SUPERVISOR [employer]. LUDWIG SAUCEDO MD 12:05 PM 01/30/2025 SUBJECTIVE Patient seen and examined. Secretions improving today more awake and alert REVIEW OF SYSTEMS Negative for 12 system except mentioned SUBJECTIVE OBJECTIVE Wt Readings from Last 3 Encounters: 01/27/25 85.4 kg (188 lb 4.4 oz) 11/01/24 93.4 kg (206 lb) 10/17/24 95.3 kg (210 lb) Temp: 98.6 ??F (37 ??C) BP Readings from Last 3 Encounters: 01/30/25 131/78 01/11/25 (!) 118/93 12/14/24 108/84 Pulse Readings from Last 3 Encounters: 01/30/25 (!) 129 01/11/25 92 12/14/24 96 PHYSICAL EXAMINATION: General Appearance: Moderately built and nourished. head: atraumatic, normocephalic. Eyes: Pupils equal and reactive to light. No discharge.no nystagmus. Ears: Normal Tympanic membrane and external ear canal . Throat: Lips, mucosa, and tongue,teeth and gums normal. Neck: Has collar Lungs: Clear to auscultation bilaterally, respirations unlabored . No wheeze or rhonchi present. Nochest wall tenderness. Heart: S1 and S2 normal, no murmur, rub or gallop . Abdomen: Soft,non-tender, bowel sounds active all four quadrants, no masses, no organomegaly detected. Extremities: Extremities normal, atraumatic, no cyanosis or edema or clubbing Pulses: 2+ and symmetric all extremities Lymph nodes: Cervical, supraclavicular, and axillary nodes normal Neurologic: CNII-XII intact. Awake. Rt Weakness LABS: Recent Labs 01/29/25 0704 WBC 8.33 HGB 14.2 HCT 43.7 MCV 92.4 PLT 217 RBC 4.73 Recent Labs 01/29/25 0704 01/30/25 0310 CO2 34.3* 31.8 CL 104 106 GLU 173* -- K 3.6 4.1 NA 141 140 BUN 24* 23* Intake/Output Summary (Last 24 hours) at 01/30/2025 1205 Last data filed at 01/30/2025 0049 Gross per 24 hour Intake 2332 ml Output 400 ml Net 1932 ml Microbiology Results (last 14 days) No results found for the last 336 hours. Radiology MEDICATIONS Scheduled medications aspirin 81 mg Tube Daily atorvastatin 80 mg Tube Nightly at bedtime furosemide 40 mg Tube Daily heparin (porcine) 5,000 Units Subcutaneous 2 times per day insulin glargine 12 Units Subcutaneous QAM insulin lispro 0-8 Units Subcutaneous Q4H lansoprazole 30 mg Tube QAM AC lidocaine 1 patch Transdermal Q24H lidocaine viscous 15 mL Mouth/Throat Once lisinopril 5 mg Tube Daily metoprolol tartrate 25 mg Tube BID protein supplement 1 packet Feeding Tube Daily scopolamine 1 patch Transdermal Q72H senna-docusate 1 tablet Tube BID sodium chloride 4 mL Nebulization 2 times daily RT Infusion TF diabetic w/Fiber 20 mL/hr (01/30/25 0951) PRN acetaminophen OR acetaminophen OR acetaminophen, albuterol, atropine, glucose, dextrose 10 % bolus, glucagon, hydrALAZINE, HYDROcodone-acetaminophen, labetalol, naLOXone, ondansetron, oxyCODONE immediate release * Alonso Vasquez Jr., MD - 01/30/2025 11:21 AM CDTSummary: PM&R Progress Note SUBJECTIVE CC: CVA, chronic C2 fracture, impaired mobility HISTORY: Seen with daughter at bedside. PEG tube placed yesterday, tolerating TF. Pain well controlled with current medications. Altered sensation in feet unchanged from previous. No significant muscle spasms or headache. Speech continues improving. Participating with therapies. ROS: Denies CP, SOB, abd pain, nausea, vomiting, diarrhea. OBJECTIVE Current Facility-Administered Medications: acetaminophen (TYLENOL) tablet 650 mg, 650 mg, Tube, Q4H PRN OR acetaminophen (TYLENOL) suppository 650 mg, 650 mg, Rectal, Q4H PRN OR acetaminophen (TYLENOL) 160 MG/5ML solution 650 mg, 650 mg, Tube, Q4H PRN, Emiliano Donaldson MD, 650 mg at 01/29/252123 albuterol (PROVENTIL) (2.5 MG/3ML) 0.083% nebulizer solution 2.5 mg, 2.5 mg, Nebulization, BID PRN,Naya Gonzalez MD, 2.5 mg at 01/26/25 191 aspirin chewable tablet 81 mg, 81 mg, Tube, Daily, Emiliano Donaldson MD, 81 mg at 01/30/25821 atorvastatin (LIPITOR) tablet 80 mg, 80 mg, Tube, Nightly at bedtime, Emiliano Donaldson MD, 80 mg at 01/29/25 2124 atropine 1 % ophthalmic solution 1 drop, 1 drop, Sublingual, TID PRN, Naya Gonzalez MD dextrose (GLUTOSE) 40 % oral gel 37.5-75 g, 15-30 g of dextrose, Oral, PRN, Devonte Kohler MD dextrose 10 % bolus infusion 125-250 mL, 125-250 mL, Intravenous, PRN, Devonte Kohler MD, Stopped at01/29/25 0042 furosemide (LASIX) tablet 40 mg, 40 mg, Tube, Daily, Devonte Kohler MD, 40 mg at 01/30/25 0823 glucagon injection 1 mg, 1 mg, Intramuscular, Once PRN, Devonte Kohler MD heparin (porcine) injection 5,000 Units, 5,000 Units, Subcutaneous, 2 times per day, Naya Gonzalez MD, 5,000 Units at 01/30/25 0823 hydrALAZINE (APRESOLINE) injection 10 mg, 10 mg, Intravenous, Q6H PRN, DONNIE Cruz, 10 mgat 01/24/25 0414 HYDROcodone-acetaminophen (NORCO) 5-325 MG tablet 1 tablet, 1 tablet, Tube, Q6H PRN, Emiliano Donaldson MD, 1 tablet at 01/22/25 2348 insulin glargine (LANTUS) injection 12 Units, 12 Units, Subcutaneous, QAM, Roseanna Ha MD, 12 Units at 01/30/25 1033 insulin lispro (HUMALOG/ADMELOG) injection 0-8 Units, 0-8 Units, Subcutaneous, Q4H, Roseanna Ha MD labetalol (TRANDATE) injection 20 mg, 20 mg, Intravenous, Q6H PRN, Dennys Downs, APNP, 20 mg at 01/23/25 1314 lansoprazole (PREVACID SOLUTAB) disintegrating tablet 30 mg, 30 mg, Tube, QAM AC, Emiliano Donaldson MD, 30 mg at 01/30/25 0620 lidocaine 4 % patch 1 patch, 1 patch, Transdermal, Q24H, Phylicia Howard NP, 1 patch at 01/28/25 2112 lidocaine viscous (XYLOCAINE) 2 % solution 15 mL, 15 mL, Mouth/Throat, Once, Naya Gonzalez MD lisinopril (PRINIVIL) tablet 5 mg, 5 mg, Tube, Daily, Emiliano Donaldson MD, 5 mg at 01/30/25 0823 metoprolol tartrate (LOPRESSOR) tablet 25 mg, 25 mg, Tube, BID, SALEEM CruzP, 25 mg at 01/30/25 0823 naLOXone (NARCAN) injection 0.4 mg, 0.4 mg, Intravenous, PRN, Phylicia Howard NP ondansetron (ZOFRAN) injection 4 mg, 4 mg, Intravenous, Q8H PRN, Phylicia Howard NP oxyCODONE immediate release (ROXICODONE) tablet 5 mg, 5 mg, Tube, Q6H PRN, Emiliano Donaldson MD, 5 mgat 01/28/25 1604 protein supplement (PROSOURCE) packet 1 packet, 1 packet, Feeding Tube, Daily, Sandra Ray DO, 1 packet at 01/30/25 0825 scopolamine (TRANSDERM-SCOP) 1 MG/3DAYS patch 1 patch, 1 patch, Transdermal, Q72H, Naya Gonzalez MD, 1 patch at 01/27/25 1652 senna-docusate (SENOKOT-S) 8.6-50 MG tablet 1 tablet, 1 tablet, Tube, BID, Emiliano Donaldson MD, 1 tablet at 01/30/25 0823 sodium chloride 7 % nebulizer solution 4 mL, 4 mL, Nebulization, 2 times daily RT, Naya Gonzalez MD, 4 mL at 01/30/25 0810 TF diabetic w/Fiber (GLUCERNA 1.2) liquid, 20-65 mL/hr, Feeding Tube, Continuous, Sandra Ray DO, Last Rate: 20 mL/hr at 01/30/25 0951, 20 mL/hr at 01/30/25 0951 Vitals: 01/30/25 0800 BP: 131/78 Pulse: (!) 129 Resp: 18 Temp: 98.6 ??F (37 ??C) SpO2: 94% PHYSICAL EXAM: General: Well nourished, No acute distress Eye: PERRL, EOMI, Normal conjunctiva HENT: Normocephalic, Normal hearing, MMM Neck: Supple, C collar in place Lungs: Symmetric thoracic expansion, Non-labored breathing Heart: Extremities warm and well-perfused, No edema in extremities Abdomen: Soft, Nondistended, Nontender, No organomegaly, PEG in place w/o erythema or drainage Musculoskeletal: Normal passive ROM in bilateral upper and lower extremities; formal strength exam limited by patient's command following, strength grossly WNL in LUE/LLE, right hemiplegia Skin: Skin is warm, dry and pink; No rashes on exposed skin Neurologic: -Dysarthric speech -Mild right facial droop -Facial sensation intact bilaterally -Altered sensation in bilateral feet to light touch, intact in BUE -No clonus; No increase in tone Psychiatric: Cooperative, calm ASSESSMENT AND PLAN Олег Watson is a 69 YO male now admitted to [facility] with right sided weakness, acute ischemic CVA, and chronic C2 fracture. CVA - small acute left-sided strokes in the left basal ganglia and adjacent temporal lobe as well as possible additional stroke in the inferomedial left temporal lobe Right hemiplegia C2 vertebral fracture Impaired mobility Decreased independence with ALDs -Provided extensive counseling on stroke pathology, prognosis, and rehabilitation to patient and family -Reviewed available notes from therapy services, case management, neurology, and the hospitalist -Recommend PT and OT: working on strength, endurance, balance, and techniques to improve safety andindependence with ADLs and mobility -No spasticity or neuropathic pain at present, continue to monitor -C-collar at all times per ortho -Neuro believe / increased dysarthria and right sided weakness to be related to brain swelling which may have peaked yesterday, updated CT head was without acute change vs previous Dysphagia -Recommend DIRECTOR OF MEDICARE: work on cognition, speech and swallow -PEG tube placed 01/29, tolerated TF Management of remaining medical issues per primary/consulting services. Dispo -The patient has suffered a significant decline from their usual state of health and level of function and would benefit from an acute rehabilitation program with PT/OT/DIRECTOR OF MEDICARE 3h/d, at least 5d/wk to improve endurance, mobility, activities of daily living, cognition, and swallowing as appropriate. They will also require physiatric oversight to monitor medical conditions, skin/incisions, nutrition, and the rehab program. -I personally discussed the recommendations for further rehabilitation based on their current levelof independence with ADLs and functional mobility. We reviewed the available options for rehabilitation after discharge. The patient and family are agreement with discharge to acute inpatient rehab for further recovery. Patient/family's first choice is [facility] as it is closer to home. Open to [facility] if unable to go to [place]. Peer to peer was completed 01/29 per CM note. Discussed with patient and family. PM&R will continue to follow peripherally and will re-evaluate as appropriate. Please contact via Halo with any additional questions or concerns. * Antonieta Dan, HEDGE FUND MANAGER - 01/30/2025 11:07 AM CDT PT Treatment Discharge Recommendation: Inpatient Rehab Patient is a good candidate for inpatient rehab as he remains motivated and demonstrates the ability to tolerate 3 hours of intense therapy per day. Patient was independent at baseline. In attempt toreturn to prior level of function, patient requires intense inpatient rehab to address following deficits: R sided weakness, acute decondition, balance deficits, cognition that impact his independence with self-care participation, mobility/transfers, and overall safety/independence. Due to the acute care setting, 3 hours of therapy is not feasible to be completed daily. Activity Recommendation for zipper setter chainstitch: up with 2, 2ww, pivot transfer, gait belt, pauma J donned at all times 01/30/25 0715 Therapy Visit Ordering Provider Phylicia Howard NP Subjective Upon entering room 850, patient was in supine and agreeable to therapy. Reason for admission Pt presents after fall from bed at home. 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 While at hospital, pt found to have acute right sided weakness and blurry vision.MRI demonstrates: small acute left-sided strokes in the left basal ganglia, adjacent temporal lobe,possible additional stroke in the inferomedial left temporal lobe, volume loss and probable small ve ssel disease. ......PMH: Acute myocardial infarction, Ankle fracture, fracture left fibula, Coronary artery disease, Diabetes, DKA, HTN, Eustachian tube dysfunction, HLD, Hx of CABG, Microalbuminuria, Myocardial infarction, Non- rheumatic mitral regurgitation .........Therapy orders: eval and treat.. ..Activity as tolerated, up at jahaira with collar Verified Two Patient Identifiers Yes Patient consents to therapy Yes Acute Inpatient PT Time Calculation PT Start Time 0715 PT Stop Time 0746 PT Time Calculation (min) 31 min Precautions Spine Precautions Bending;Lifting;Twisting Neck Brace Applied Yes General Precautions Aspiration;Bed Alarm;Chair Alarm;Fall Risk Instructed on Precautions Yes;Needs reinforcement and education Other c-spine precautions with [place] J at all times, PEG, telemetry, purewick, NPO Prior Function PLOF Comments Per eval, patient lives alone in a 1.5 story house, but resides on the main floor only. There are 2-3 steps to enter, no handrail. Bathroom has a tub/shower combo without a seat or grabbar, standard height toilet seat with vanity nearby for support. Patient owns a 2 wh/walker, but typically does not use any assistive devices. He states he is independent with all mobility, ADL's andIADL's, still drives and does errands. He reports no available assistance. Patient reports during the most recent fall he fell attempting to get out ofb bed. He reports another recent fall on the sidewalk last week, hitting his chest.........Daughter states that if necessary, her father can stay with her and the daughter's fiance. They live in a 2 story house, but patient will reside on main floor. There are 4 steps with a handrail to enter. Bathroom is a tub/shower combo with standard toilet and vanity. Daughter works shift stacker as an RN, but her fiance will be home as needed for 17/05 supervision. Pain Pain Patient does not offer or c/o pain Activity Tolerance Endurance Quality Fair Limiting Factors to Endurance Weakness;Pain;Fatigue;Acute deconditioning Activity Tolerance Comments R sided weakness, R sided inattention Cognition Overall Cognitive Status Impaired Arousal/Alertness Appropriate responses to stimuli Attention Span Attends with cues to redirect Memory Decreased short term memory Orientation Level Oriented to situation;Oriented to person Following Commands Follows one step commands with repetition Safety Judgment Decreased awareness of need for assistance Awareness of Errors Assistance required to identify errors made Deficits Decreased awareness of deficits Comments more alert this date, speaking clearer Bed Mobility Supine to Sit Min assist to right Other (Comment) via log rolling, min A to get trunk upright TRANSFERS Sit to Stand Mod assist;Assist of 2 Bed to Chair Mod assist;Min assist;Assist of 2 Other (Comment) Patient performed sit <> stand from EOB, BUE support on therapist, mod A x 2 and took steps to chair with mod A x 1 min A for balance/weight and guidenece to chair. Once in chair, patient performed sit <> stands to 2ww, min A x 2 with verbal cues for hand placement and balance due to posterior right lateral lean. Gait Gait Assistance Min assist;Mod assist;Assist of 2 Assistive Device 2 Wheeled walker Distance Ambulated (ft) 10 ft (x 2) Other (Comment) Patient demonstrates decreased hiro, decreased step length, decreased clearance of BLE's with ocassional physical assistance for RLE movement, forward flexed posture, min A x 1 modA x 1 due to right lateral trunk lean progressing to mod A x 2 with fatigue, and close chair followfor safety. Rest break following each ambulation Balance Sitting - Static CGA Sitting - Dynamic Min Assist Standing - Static Mod Assist;Support of both upper extremities;Assist of 2 Persons Standing - Dynamic Mod Assist;Support of both upper extremities;Assist of 2 Persons Other (Comment) increased physical assistance with fatigue, high falls risk due to R sided weakness, R lateral trunk lean PT Assessment PT Assessment Patient tolerated treatment session well this date with improving activity tolerance and gait training. Patient is more alert and agreeable this session. Patient continues to be limitedby R sided weakness, spinal precautions, balance deficits, and acute deconditioning. Patient would benefit from continued therapy at an inpatient rehab to improve LE strength, endurance, and balance to improve overall functional mobility. Modified Marlena Score Interval Daily Interval Score 0-6 4 Discharge Recommendation PT Recommendation Inpatient rehab Plan PT Treatments/Interventions Gait Training;Manual Therapy;Therapeutic Exercises;Therapeutic Activities;Neuromuscular re-education;Patient/family training Progress Progressing toward goals PT Frequency 5 times/week PT - Next Appointment 01/30/25 If this is the last treatment note,it will serve as the discharge summary Yes End of Session End of Session Safety Chair alarm set/activated;Call light within reach;Nursing aware of session Education: Primary Learners Name: Олег Watson Primary Language of learner: Mosotho Patient was educated on stroke rehabilitation management precautions transfers balance bed mobility therapy plan gait safety. Education was completed one to one verbal hands-on demonstration this date. Preference of learning new concepts one to one verbal hands-on demonstration Barriers to education this date were fatigue cognition physical impairment. Response to education this date verbalized understanding needs follow up needs assistance. * Susana Lamas RN - 01/30/2025 10:40 AM CDTSummary: IDR 01/30/25 1957 Interdisciplinary Group Conference Team Members Present Physician;Case/Care management;Nursing Physician present for group conference Dr. Saucedo Barriers to Discharge Inpatient Review Barriers to Discharge Inpatient Complex - Social and/or Medical;Test Pending Complex - Social and/or Medical follow up Acute CVA, Chronic C2 fracture after a fall, PEG, TF needs to be at goal. Stroke neuro, Endocrinology, Speech following,recs. Patient expects to be discharged to Patient expects to be discharged to: Inpatient Rehab Facility (IRF) Evelyne with [facility] notified insurance company has denied and they have submitted and appeal today. Plan to follow up with CM once they hear back from insurance company. Susana Lamas RN Case Manager ext. [phone] * Woody Lock, LATOSHA - 01/30/2025 10:09 AM CDT CLINICAL DIETITIAN NOTE Current oral diet order: Diet NPO effective now 01/30/25 1100 TF Review TF Route G-Tube Tube Size 18 Fr TF Administered per RD Recommendation Yes (TF restarted at 20 mL/hr this morning after G-tube placement yesterday morning) Cardiorespiratory Vent Support No Mean Arterial Pressure Majority > or equal to 65 mmHg over the past 24 hours GI Tolerance Bowel Movement No BM >3 days (senna-docusate) Vomiting No Abdominal Distension No Medication Review TF-Medication Interaction Identified No Labs Results Reviewed No nutrition-related concerns requiring intervention Summary Recommendation Change in TF regimen indicated, see Dietitian progress note Meds: aspirin 81 mg Tube Daily atorvastatin 80 mg Tube Nightly at bedtime furosemide 40 mg Tube Daily heparin (porcine) 5,000 Units Subcutaneous 2 times per day insulin glargine 12 Units Subcutaneous QAM insulin lispro 0-8 Units Subcutaneous Q4H lansoprazole 30 mg Tube QAM AC lidocaine 1 patch Transdermal Q24H lidocaine viscous 15 mL Mouth/Throat Once lisinopril 5 mg Tube Daily metoprolol tartrate 25 mg Tube BID protein supplement 1 packet Feeding Tube Daily scopolamine 1 patch Transdermal Q72H senna-docusate 1 tablet Tube BID sodium chloride 4 mL Nebulization 2 times daily RT TF diabetic w/Fiber 20 mL/hr (01/30/25 0951) Labs: Recent Labs Lab 01/29/25 0519 01/29/25 0809 01/29/25 1142 01/29/25 1849 01/29/25 2015 01/30/25 0027 01/30/25 0420 GLUCOSEPOC 164* 168* 165* 301* 261* 277* 247* Recent Labs Lab 01/26/25 0156 01/27/25 0210 01/29/25 0704 01/30/25 0310 NA 139 140 141 140 K 3.7 3.8 3.6 4.1 MAGNESIUM 2.4 2.5 2.4 -- PHOS 3.7 3.5 2.5 -- BUN 36* 41* 24* 23* CR 1.33* 1.29 1.15 1.19 GFREST 58* 60* 69* 67* GLU 183* 122* 173* -- HGB A1C Date Value Ref Range Status 01/19/2025 12.3 (H) <5.7 % Final 05/03/2024 12.8 % Final Anthropometrics: Ht Readings from Last 1 Encounters: 01/19/25 1.803 m (5' 11 ) Last 2 Recorded Weights 01/26/254 01/27/25 0400 Weight: 91 kg (200 lb 9.9 oz) 85.4 kg (188 lb 4.4 oz) Body mass index is 26.26 kg/m??. Evaluation: Patient underwent G-tube placement yesterday at 0914. Recommend transitioning patient to bolus tubefeedings. See recommendations below. Contacted physician regarding below recommendations, is agreeable to plan. RN aware. Nutrition prescription: Tube Feeding: Glucerna 1.2 NICOLE via G-tube. Bolus feedings of 356 mL at 0800, 1200. 1600. 1999. Protein Modular: Administer 1 packet(s) Prosource once daily to assist with meeting estimated protein requirement. Free Water Flushes: 50 mL before and after each bolus feeding Nutrient provision from recommended TF (based on dosing weight of 85.4 kg): NICOLE: 1769 kcal/day (20.7 kcal/kg/day) PRO: 100 gm/day (1.3 gm/kg/day using IBW of 78 kg) CHO: 162 gm/day (37% of kcal provided) FLUID: 1636 mL/day free water from TF, free water flushes and free water from modular administration Recommended TF meets 100% estimated kcal needs and 100% estimated protein needs with free water adequate for hydration. Plan: 1. Provide bolus TF with Glucerna 1.2 NICOLE via G-tube at 0800, 1200, 1600, 2000 daily. Initiate bolus TF at 120 mL per feeding and advance by 60 mL every other feeding as tolerated to goal of 356 mL per feeding. 2. Free water flush: 50 mL before and after each bolus feeding. 3. Provide 1 packet(s) of Prosource once daily via G-tube. Administer per environmental air specialist instructions. 4. Provide 100 mg Thiamine and MVI daily x 10 days (today is day 10 of 10). 5. Labs: BMP, Mg and Phos daily. Replete electrolytes as indicated. 6. Weigh patient at least twice weekly. WOODY LOCK RD, LDN * Akiko Bettencourt, VERÓNICA - 01/30/2025 7:46 AM CDT OT Treatment Discharge Recommendation: Inpatient Rehab Activity Recommendation for zipper setter chainstitch: Pivot with assist of 2 and walker. 01/30/25 0716 Therapy Visit OT Received On 01/30/25 Reason for admission Pt presents after fall from bed at home. 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 While at hospital, pt found to have acute right sided weakness and blurry vision.MRI demonstrates: small acute left-sided strokes in the left basal ganglia, adjacent temporal lobe,possible additional stroke in the inferomedial left temporal lobe, volume loss and probable small ve ssel disease. ......PMH: Acute myocardial infarction, Ankle fracture, fracture left fibula, Coronary artery disease, Diabetes, DKA, HTN, Eustachian tube dysfunction, HLD, Hx of CABG, Microalbuminuria, Myocardial infarction, Non- rheumatic mitral regurgitation .........Therapy orders: eval and treat.. ..Activity as tolerated, up at jahaira with collar Ordering Provider Phylicia Howard NP Verified Two Patient Identifiers Yes Patient consents to therapy Yes Acute Inpatient OT Time Calculation OT Start Time 07 OT Stop Time 0746 OT Time Calculation (min) 31 min Precautions Spine Precautions Bending;Lifting;Twisting Neck Brace Applied Yes General Precautions Aspiration;Bed Alarm;Chair Alarm;Fall Risk Instructed on Precautions Yes;Needs reinforcement and education Other c-spine precautions with Kayla Cain at all times, PEG, telemetry, purewick, NPO Prior Function PLOF Comments Per eval, patient lives alone in a 1.5 story house, but resides on the main floor only. There are 2-3 steps to enter, no handrail. Bathroom has a tub/shower combo without a seat or grabbar, standard height toilet seat with vanity nearby for support. Patient owns a 2 wh/walker, but typically does not use any assistive devices. He states he is independent with all mobility, ADL's andIADL's, still drives and does errands. He reports no available assistance. Patient reports during the most recent fall he fell attempting to get out ofb bed. He reports another recent fall on the sidewalk last week, hitting his chest.........Daughter states that if necessary, her father can stay with her and the daughter's fiance. They live in a 2 story house, but patient will reside on main floor. There are 4 steps with a handrail to enter. Bathroom is a tub/shower combo with standard toilet and vanity. Daughter works shift stacker as an RN, but her fiance will be home as needed for 17/05 supervision. Subjective Subjective Upon entering room 850, patient was in supine and agreeable to therapy. Pain Pain Patient does not offer or c/o pain Activity Tolerance Endurance Quality Fair Limiting Factors to Endurance Weakness;Pain;Fatigue;Acute deconditioning Activity Tolerance Comments R sided weakness, R sided inattention Cognition Overall Cognitive Status Impaired Arousal/Alertness Appropriate responses to stimuli Attention Span Attends with cues to redirect Memory Decreased short term memory Orientation Level Oriented to situation;Oriented to person Following Commands Follows one step commands with repetition Safety Judgment Decreased awareness of need for assistance Awareness of Errors Assistance required to identify errors made Deficits Decreased awareness of deficits Comments more alert this date, speaking clearer ADL Grooming Assistance Stand by Grooming Deficit Wash/dry face Grooming Comment Pt able to wash face using his Lt UE UE Dressing Assistance Minimal UE Dressing Deficit Thread RUE;Thread LUE UE Dressing Comment Pt appears to have some Rt sided inattention requiring MIN A to cues to attend Rt UE when donning/doffing gown. LE Dressing Assistance Maximal LE Dressing Deficit Don/doff R sock;Don/doff L sock Bed Mobility Supine to Sit Min assist to right Other (Comment) via log rolling, min A to get trunk upright Functional Transfers Sit to Stand Mod assist;Assist of 2 Bed to Chair Mod assist;Min assist;Assist of 2 Functional Mobility Patient performed sit <> stand from EOB, BUE support on therapist, mod A x 2 and took steps to chair with mod A x 1 min A for balance/weight and guidenece to chair. Once in chair, patient performed sit <> stands to 2ww, min A x 2 with verbal cues for hand placement and balance due to posterior right lateral lean. Facilitated functional mobility training x2 trials providing close chair follow for safety, UE support of walker, requiring MIN A and MOD A to aid in weight shifting to assist in advancing Rt LE, manage walker, and for balance. Pt with heavy Rt laterallean needing verbal/tactile cues to correct. Balance Sitting - Static CGA Sitting - Dynamic Min Assist Standing - Static Mod Assist;Support of both upper extremities;Assist of 2 Persons Standing - Dynamic Mod Assist;Support of both upper extremities;Assist of 2 Persons Other (Comment) increased physical assistance with fatigue, high falls risk due to R sided weakness, R lateral trunk lean OT Assessment OT Assessment Pt tolerated session fairly well today with good progression toward goals. Pt puttingforth good effort. Remains a high fall risk however as he is limited by Rt sided weakness, Rt sidedinattention, balance impairments, fatigue, c-spine precautions, and acute deconditioning. Pt will benefit from continued therapy at inpatient rehab to maximize his functional independence and safety prior to returning home. Modified Marlena Score Interval Daily Interval Score 0-6 4 Discharge Recommendation OT Recommendation Inpatient rehab Plan Progress Progressing toward goals OT Frequency 6 times/week OT - Next Appointment 01/30/25 If this is the last treatment note, it will serve as the discharge summary Yes End of Session End of Session Safety Chair alarm set/activated;Call light within reach;Nursing aware of session Education: Primary Learners Name: Олег Watson Primary Language of learner: Mos[place]o Patient was educated on stroke rehabilitation management precautions exercises transfers ADLs balance bed mobility therapy plan safety energy conservation adaptive skills. Education was completed one to one verbal this date. Preference of learning new concepts one to one Barriers to education this date were physical impairment. Response to education this date needs follow up. * Jeanine Lees RN - 01/29/2025 11:03 PM CDT Problem: Discharge Planning Goal: Knowledge of discharge instructions Outcome: Progressing Problem: Pain control/comfort Goal: Promote pain control/comfort Outcome: Progressing Problem: Skin integrity, Impaired-wound Goal: Absence of new skin breakdown Outcome: Progressing Goal: Evidence of wound healing Outcome: Progressing Problem: Skin integrity, Impaired-pressure injury/ulcer Goal: Absence of new skin breakdown Outcome: Progressing Goal: Evidence of pressure injury/ulcer healing Outcome: Progressing Problem: Skin integrity, at risk Goal: Absence of new skin breakdown Outcome: Progressing Problem: Moisture associated skin impairment Goal: Reduce moisture exposure Outcome: Progressing Goal: Evidence of wound healing Outcome: Progressing Goal: Evidence of pressure injury/ulcer healing Outcome: Progressing Goal: Absence of new skin breakdown Outcome: Progressing Problem: Reduced risk for falls/injury Goal: Reduced Risk for Falls/Injury Outcome: Progressing Goal: Reduced Risk of Confusion (Acute vs Chronic) Outcome: Progressing Goal: Reduced Risk of Symptomatic Depression Outcome: Progressing Goal: Reduced Risk of Altered Elimination Outcome: Progressing Goal: Reduced Risk of Dizziness/Vertigo/Balance Outcome: Progressing Goal: Reduced Risk of Polypharmacy Outcome: Progressing Problem: Pain Goal: Patient's pain/discomfort is manageable Description: Assess and monitor patient's pain using appropriate pain scale. Collaborate with interdisciplinary team and initiate plan and interventions as ordered. Re-assess patient's pain level 30 - 60 minutes after pain management intervention. Outcome: Progressing Problem: Safety Goal: Patient will be injury free during hospitalization Description: Assess and monitor vitals signs, neurological status including level of consciousness and orientation. Assess patient's risk for falls and implement fall prevention plan of care and interventions per hospital policy. Ensure arm band on, uncluttered walking paths in room, adequate room lighting, call light and overbed table within reach, bed in low position, wheels locked, side rails up per policy, and non-skid footwear provided. Outcome: Progressing Problem: Daily Care Goal: Daily care needs are met Description: Assess and monitor ability to perform self care and identify potential discharge needs. Outcome: Progressing Problem: Psychosocial Needs Goal: Demonstrates ability to cope with hospitalization/illness Description: Assess and monitor patients ability to cope with his/her illness. Outcome: Progressing Goal: Collaborate with patient/family/caregiver to identify patient specific goals for this hospitalization Outcome: Progressing Problem: Discharge Barriers Goal: Patient's discharge needs are met Description: Collaborate with interdisciplinary team and initiate plans and interventions as needed. Outcome: Progressing Problem: Aspiration - Risk of Goal: Absence of aspiration Outcome: Progressing Problem: Mobility - Impaired Goal: Able to achieve maximum mobility level Outcome: Progressing Problem: Mood - Altered Goal: Alleviation of anxiety Outcome: Progressing Goal: Decrease in depressive symptoms Outcome: Progressing Problem: THROMBOLYTIC COMPLICATION - RISK OF ANGIOEDEMA AND BLEEDING Goal: Absence of angioedema Outcome: Progressing Goal: Absence of bleeding Outcome: Progressing Problem: Tissue Perfusion - Cerebral, Altered Goal: Absence of continued neurologic deterioration signs and symptoms Outcome: Progressing Problem: Venous Thromboembolism - Risk of Goal: Absence of venous thromboembolism Outcome: Progressing Problem: Verbal Communication - Impaired Goal: Effective communication Outcome: Progressing Goal: Increased social interaction Outcome: Progressing Problem: Discharge Planning Goal: Knowledge of discharge instructions Outcome: Progressing * Roseanna Ha MD - 01/29/2025 1:13 PM CDT Progress Note Patient Name: Олег Watson Date of : 1955 Admission Date: 01/19/2025 Reason for Follow up: Type 2 diabetes on tube feed Subjective: Patient was under the effect of anesthesia, his history was obtained from record review and talkingto his care team. He was resting comfortably in the bed, he got PEG tube today morning and currently he is NPO. Last night patient had an episode of hypoglycemia which was treated with dextrose, in the morning before procedure his blood sugar dropped to 58 and he received glucagon, currently patient is on dextrose and half-normal at 75 cc/h and his last blood sugar was 165 Medications: Current Facility-Administered Medications Medication Dose Route Frequency Provider Last Rate Last Admin acetaminophen (TYLENOL) tablet 650 mg 650 mg Tube Q4H PRN Emiliano Donaldson MD Or acetaminophen (TYLENOL) suppository 650 mg 650 mg Rectal Q4H PRN Emiliano Donaldson MD Or acetaminophen (TYLENOL) 160 MG/5ML solution 650 mg 650 mg Tube Q4H PRN Emiliano Donaldson MD 650 mg at01/25/25 0506 albuterol (PROVENTIL) (2.5 MG/3ML) 0.083% nebulizer solution 2.5 mg 2.5 mg Nebulization BID PRN Naya Gonzalez MD 2.5 mg at 01/26/25 1919 aspirin chewable tablet 81 mg 81 mg Tube Daily Emiliano Donaldson MD 81 mg at 01/28/25 0951 atorvastatin (LIPITOR) tablet 80 mg 80 mg Tube Nightly at bedtime Emiliano Donaldson MD 80 mg at 01/28/252109 atropine 1 % ophthalmic solution 1 drop 1 drop Sublingual TID PRN Naya Gonzalez MD dextrose (GLUTOSE) 40 % oral gel 37.5-75 g 15-30 g of dextrose Oral PRN Devonte Kohler MD dextrose 10 % bolus infusion 125-250 mL 125-250 mL Intravenous PRN Devonte Kohler MD Stopped at 01/29/25 0042 dextrose 5 %-sodium chloride 0.9 % infusion Intravenous Continuous Devonte Kohler MD 50 mL/hr at 01/28/25 0949 New Bag at 01/28/25 0949 furosemide (LASIX) tablet 40 mg 40 mg Tube Daily Devonte Kohler MD glucagon injection 1 mg 1 mg Intramuscular Once PRN Devonte Kohler MD heparin (porcine) injection 5,000 Units 5,000 Units Subcutaneous 2 times per day Naya Gonzalez MD 5,000 Units at 01/28/25 211 hydrALAZINE (APRESOLINE) injection 10 mg 10 mg Intravenous Q6H PRN DONNIE Cruz 10 mg at 01/24/25 0414 HYDROcodone-acetaminophen (NORCO) 5-325 MG tablet 1 tablet 1 tablet Tube Q6H PRN Emiliano Donaldson MD1 tablet at 01/22/25 2348 insulin lispro (HUMALOG/ADMELOG) injection 0-16 Units 0-16 Units Subcutaneous Q4H Ludwig Coe MD 12 Units at 01/29/25 0549 labetalol (TRANDATE) injection 20 mg 20 mg Intravenous Q6H PRN LYNN Garner 20 mg at 01/23/25 1314 lansoprazole (PREVACID SOLUTAB) disintegrating tablet 30 mg 30 mg Tube QAM AC Emiliano Donaldson MD 30mg at 01/27/25 0608 lidocaine 4 % patch 1 patch 1 patch Transdermal Q24H Phylicia Howard NP 1 patch at 01/28/25 2112 lidocaine viscous (XYLOCAINE) 2 % solution 15 mL 15 mL Mouth/Throat Once Naya Gonzalez MD lisinopril (PRINIVIL) tablet 5 mg 5 mg Tube Daily Emiliano Donaldson MD 5 mg at 01/28/25 1558 metoprolol tartrate (LOPRESSOR) tablet 25 mg 25 mg Tube BID DONNIE Cruz 25 mg at 113 multi vitamin/minerals (THERA-M ENHANCED) tablet 1 tablet 1 tablet Tube Daily SALEEM CruzP1 tablet at 01/28/25 1558 naLOXone (NARCAN) injection 0.4 mg 0.4 mg Intravenous PRN Phylicia Howard NP ondansetron (ZOFRAN) injection 4 mg 4 mg Intravenous Q8H PRN Phylicia Howard NP oxyCODONE immediate release (ROXICODONE) tablet 5 mg 5 mg Tube Q6H PRN Emiliano Donaldson MD 5 mg at 01/28/25 1604 protein supplement (PROSOURCE) packet 1 packet 1 packet Feeding Tube Daily Sandra Ray, DO 1 packet at 01/28/25 1559 scopolamine (TRANSDERM-SCOP) 1 MG/3DAYS patch 1 patch 1 patch Transdermal Q72H Naya Gonzalez MD1 patch at 01/27/25 1652 senna-docusate (SENOKOT-S) 8.6-50 MG tablet 1 tablet 1 tablet Tube BID Emiliano Donaldson MD 1 tablet at 01/28/25 2110 sodium chloride 7 % nebulizer solution 4 mL 4 mL Nebulization 2 times daily RT Naya Gonzalez MD4 mL at 01/28/25 1939 TF diabetic w/Fiber (GLUCERNA 1.2) liquid 20-65 mL/hr Feeding Tube Continuous Sandra Ray DO20 mL/hr at 01/28/25 1900 20 mL/hr at 01/28/25 1900 vitamin B-1 (THIAMINE) tablet 100 mg 100 mg Tube Daily Sandra Ray, DO 100 mg at 01/28/25 1558 Objective: PHYSICAL EXAMINATION: GENERAL: well-developed, well-nourished .No apparent distress. NG present. VITAL SIGNS: As above Current Vitals: Weight: Last Recorded Weight 01/27/25 0400 Weight: 85.4 kg (188 lb 4.4 oz) Vitals: 01/29/25 1144 BP: (!) 161/79 Pulse: 91 Resp: Temp: 99.7 ??F (37.6 ??C) SpO2: 99% REVEIW OF SYSTEMS Unobtainable, given his condition Labs: Recent Results (from the past 24 hours) POCT glucose Collection Time: 01/28/25 3:39 PM Result Value Ref Range GLUCOSE POC 280 (H) 70 - 109 POCT glucose Collection Time: 01/28/25 8:44 PM Result Value Ref Range GLUCOSE POC 118 (H) 70 - 109 POCT glucose Collection Time: 01/28/25 11:11 PM Result Value Ref Range GLUCOSE POC 55 (L) 70 - 109 POCT glucose Collection Time: 01/28/25 11:21 PM Result Value Ref Range GLUCOSE POC 68 (L) 70 - 109 POCT glucose Collection Time: 01/29/25 12:02 AM Result Value Ref Range GLUCOSE POC 52 (L) 70 - 109 POCT glucose Collection Time: 01/29/25 12:48 AM Result Value Ref Range GLUCOSE POC 208 (H) 70 - 109 POCT glucose Collection Time: 01/29/25 5:19 AM Result Value Ref Range GLUCOSE POC 164 (H) 70 - 109 CBC W/DIFF AUTOMATED Collection Time: 01/29/25 7:04 AM Result Value Ref Range WBC 8.33 4.00 - 10.80 x10'3/uL RBC 4.73 4.50 - 6.10 x10'6/uL HGB 14.2 12.0 - 16.0 G/DL HCT 43.7 37.0 - 52.0 % MCV 92.4 78.0 - 100.0 FL MCH 30.0 27.0 - 31.0 PG MCHC 32.5 (L) 33.0 - 36.0 G/DL RDW 12.7 11.5 - 14.5 % PLT 217 150 - 350 x10'3/uL MPV 9.9 7.4 - 10.4 FL DIFFERENTIAL TYPE AUTOMATED DIFFERENTIAL SEG NEUTROPHILS 79.1 % LYMPHOCYTES 10.4 % MONOCYTES 9.2 % EOSINOPHILS 0.4 % BASOPHILS 0.4 % IMMATURE GRANS % 0.5 % ABS. NEUTROPHILS 6.59 1.60 - 8.30 x10'3/uL ABS. LYMPHOCYTES 0.87 0.80 - 4.70 x10'3/uL ABS. MONOCYTES 0.77 0.00 - 1.50 x10'3/uL ABS. EOSINOPHILS 0.03 0.00 - 0.40 x10'3/uL ABS. BASOPHILS 0.03 0.00 - 0.20 x10'3/uL ABS. IMMATURE GRANULOCYTES 0.04 (H) 0.00 - 0.03 x10'3/uL ABS. NUCLEATED RBC'S 0.00 0.00 - 0.01 x10'3/uL NRBC % 0.0 % PROTIME/INR, VENOUS (PROTHROMBIN TIME) Collection Time: 01/29/25 7:04 AM Result Value Ref Range PROTIME 13.6 (H) 9.4 - 12.5 SEC INR 1.2 (H) 0.8 - 1.1 BASIC METABOLIC PANEL Collection Time: 01/29/25 7:04 AM Result Value Ref Range SODIUM S/P/B 141 136 - 145 MMOL/L POTASSIUM S/P/B 3.6 3.5 - 5.1 MMOL/L CHLORIDE S/P/B 104 97 - 115 MMOL/L CO2 34.3 (H) 21.0 - 32.0 MMOL/L GLUCOSE 173 (H) 74 - 106 MG/DL BUN 24 (H) 7 - 18 MG/DL CREATININE S/P/B 1.15 0.70 - 1.30 MG/DL CALCIUM S/P/B 9.6 8.5 - 10.1 MG/DL ANION GAP 2.7 2.0 - 10.0 MMOL/L OSMOLALITY (CALC) 300 MOSM/KG GFR ESTIMATE 69 (L) >90 ML/MIN/1.73 M2 GFR NOTES GFR REFERENCES: PHOSPHORUS, INORGANIC PHOSPHATE Collection Time: 01/29/25 7:04 AM Result Value Ref Range PHOSPHORUS 2.5 2.5 - 4.9 MG/DL MAGNESIUM Collection Time: 01/29/25 7:04 AM Result Value Ref Range MAGNESIUM 2.4 1.6 - 2.6 MG/DL POCT glucose Collection Time: 01/29/25 8:09 AM Result Value Ref Range GLUCOSE POC 168 (H) 70 - 109 POCT glucose Collection Time: 01/29/25 11:42 AM Result Value Ref Range GLUCOSE POC 165 (H) 70 - 109 Recent Labs Lab 01/28/25 2311 01/28/25 2321 01/29/25 0002 01/29/25 0048 01/29/25 0519 01/29/25 0809 01/29/25 1142 GLUCOSEPOC 55* 68* 52* 208* 164* 168* 165* Assessment and Plan Uncontrolled type 2 diabetes On tube feed Current use of insulin Outpatient endocrine provider: Tiffani Sen NP, [facility] in [place] A1c here 12.3% His blood sugar log was reviewed, since patient is n.p.o. until tomorrow 10 AM, will continue dextrose IV to keep his blood sugar between 140 and 180. Accu-Chek every 4 hours.I had changed his correctional insulin to 1:50> 150 Q4h Previously he was on Glucerna 1.2 tubefeeding at 65 mL/hr continuously provides 163 g of carbohydrates per 24 hours. Lantus 30 units Q12H , Humaloh q6H. Once his tube feed is resumed, we will start him on scheduled basal and prandial insulin. Plan was discussed with his RN ROSEANNA HA MD 01/29/2025 * Ludwig Saucedo MD - 01/29/2025 11:52 AM CDT Images from the original note were not included. [employer] Hospitalist Progress note Chief Complain: Acute CVA ASSESSMENT /PLAN: Олег Watson is a 69-year-old male with PMH of uncontrolled type 2 diabetes mellitus, HTN, MA, CABG, and mitral regurgitation presented to ED on 01/19/2025 as a category 3 trauma with ground-level fall. He was found to have chronic C2 fracture, no acute injuries. Stat stroke was called on 01/20/2025nd MRI brain demonstrated left-sided ischemic stroke in the basal ganglia and adjacent temporal lobe. Patient was evaluated by neurovascular team, ortho-spine, and PM&R. He failed bedside swallow and also failed DIRECTOR OF MEDICARE eval. Currently has Keofed with tube feeds, DIRECTOR OF MEDICARE continues to follow for advancing diet versus PEG tube. PT/OT recommending inpatient rehab, referrals have been sent by case management. Hospitalist team was contacted on 01/24/2025 to take over as primary service. . 1 Chronic C2 fracture, ground-level fall 01/19/2025 Admitted by trauma service, transition to hospitalist 01/24/2025 [place] J cervical collar at all times per ortho-spine PT/OT recommending inpatient rehab, referrals pending Pain control Fall precautions Wean oxygen as tolerated Outpatient follow-up with Dr. Montanez 2. Acute ischemic stroke, RUE/RLE weakness, dysarthria, dysphagia Left basal ganglia and adjacent temporal lobe small acute strokes on MRI from 01/20/2025 Failed bedside swallow, NPO per DIRECTOR OF MEDICARE, discussed with speech PEG tube okay with family -plan for PEG tube placement on Wednesday Patient pulled out NG tube yesterday. Discussed with radiology. He needs 1 placed in as he needs a barium to be given through NG tube tonight for PEG placement tomorrow. Will get new NG tube. PEG placement today. Stroke neuro input appreciated PM&R following, appreciate their recommendations, Continue ASA and statin Monitor on telemetry PT/OT recommending inpatient rehab, referrals pending Will need to make sure pt's feeding through PEG at goal prior to discharge. 3. Uncontrolled type II diabetes management per endocrinology Patient's home regimen includes Lantus and lispro, patient reports compliance Most recent HbA1c 12.3% from 01/19/2025 [place] endocrinology consulted, appreciate their recommendations NG tube feeds were on hold as he pulled out NG tube yesterday. Continue D5 normal saline for now. Will defer to endocrinology to manage insulin so as to avoid duplication of orders 4. HTN Continue to monitor hypertension . SBP goal to < 140. FDC SBP goal < 130/70. Continue lisinopril, Will increase metoprolol dose to better control heart rate and blood pressure 5. Hx MA, CABG, mitral regurgitation Continue aspirin statin beta-jazlyn 6 acute on chronic diastolic HFpEF EF of 63% echo done on 12/25 Chest x-ray with pulmonary congestion Continue Lasix 40 mg daily 7. Increase secretions responding well to hypertonic saline scopolamine patch reevaluate need for scopolamine patch in 2 to 3 days chest x-ray noted congestion continue Lasix Increase activit OOB TID Body mass index is 28.73 kg/m??. CODE STATUS: Full code Discussed with daughter and discussed with speech orders for PEG placed PEG will be placed on Wednesday Body mass index is 26.26 kg/m??. DVT Prophylaxis: Continue heparin DC heparin Wednesday night Code Status: Full Code Disposition/Discharge plan: PEG on Wednesday probably couple of days after that I have ordered, reviewed and interpreted all Labs . I have reviewed and interpreted all Imaging . Ihave reviewed,ordered and prescribed all necessary medications. I have reviewed and interpreted allconsultant notes. Case was discussed w/ the patient and/or POA. All questions were answered & concerns addressed. Case was also discussed with case management AND SUPERVISOR EPOXY FABRICATION. LUDWIG SAUCEDO MD 11:52 AM 01/29/2025 SUBJECTIVE Patient seen and examined. Secretions improving today more awake and alert REVIEW OF SYSTEMS Negative for 12 system except mentioned SUBJECTIVE OBJECTIVE Wt Readings from Last 3 Encounters: 01/27/25 85.4 kg (188 lb 4.4 oz) 11/01/24 93.4 kg (206 lb) 10/17/24 95.3 kg (210 lb) Temp: 99.7 ??F (37.6 ??C) BP Readings from Last 3 Encounters: 01/29/25 (!) 161/79 01/11/25 (!) 118/93 12/14/24 108/84 Pulse Readings from Last 3 Encounters: 01/29/25 91 01/11/25 92 12/14/24 96 PHYSICAL EXAMINATION: General Appearance: Moderately built and nourished. head: atraumatic, normocephalic. Eyes: Pupils equal and reactive to light. No discharge.no nystagmus. Ears: Normal Tympanic membrane and external ear canal . Throat: Lips, mucosa, and tongue,teeth and gums normal. Neck: Has collar Lungs: Clear to auscultation bilaterally, respirations unlabored . No wheeze or rhonchi present. Nochest wall tenderness. Heart: S1 and S2 normal, no murmur, rub or gallop . Abdomen: Soft,non-tender, bowel sounds active all four quadrants, no masses, no organomegaly detected. Extremities: Extremities normal, atraumatic, no cyanosis or edema or clubbing Pulses: 2+ and symmetric all extremities Lymph nodes: Cervical, supraclavicular, and axillary nodes normal Neurologic: CNII-XII intact. Awake. Rt Weakness LABS: Recent Labs 01/27/2520901/29/25 0704 WBC 7.46 8.33 HGB 13.9 14.2 HCT 43.9 43.7 MCV 91.1 92.4 PLT 193 217 RBC 4.82 4.73 Recent Labs 01/27/2520901/29/25 0704 CO2 32.3* 34.3* CL 103 104 GLU 122* 173* K 3.8 3.6 NA 140 141 BUN 41* 24* Intake/Output Summary (Last 24 hours) at 01/29/2025 1152 Last data filed at 01/29/2025 0350 Gross per 24 hour Intake 110 ml Output -- Net 110 ml Microbiology Results (last 14 days) No results found for the last 336 hours. Radiology MEDICATIONS Scheduled medications aspirin 81 mg Tube Daily atorvastatin 80 mg Tube Nightly at bedtime furosemide 40 mg Tube Daily heparin (porcine) 5,000 Units Subcutaneous 2 times per day insulin lispro 0-16 Units Subcutaneous Q4H lansoprazole 30 mg Tube QAM AC lidocaine 1 patch Transdermal Q24H lidocaine viscous 15 mL Mouth/Throat Once lisinopril 5 mg Tube Daily metoprolol tartrate 25 mg Tube BID multivitamin 1 tablet Tube Daily protein supplement 1 packet Feeding Tube Daily scopolamine 1 patch Transdermal Q72H senna-docusate 1 tablet Tube BID sodium chloride 4 mL Nebulization 2 times daily RT thiamine 100 mg Tube Daily Infusion dextrose 5 %-sodium chloride 0.9 % 50 mL/hr at 01/28/25 0949 TF diabetic w/Fiber 20 mL/hr (01/28/25 1900) PRN acetaminophen OR acetaminophen OR acetaminophen, albuterol, atropine, glucose, dextrose 10 % bolus, glucagon, hydrALAZINE, HYDROcodone-acetaminophen, labetalol, naLOXone, ondansetron, oxyCODONE immediate release * VERÓNICA Silva - 01/29/2025 10:34 AM CDT 01/29/25 1034 Acute Inpatient OT Time Calculation OT Start Time 1034 OT Therapy Interruption (min) Attempted to see pt for OT session however RN reports pt just returned from PEG placement and still out of it. OT will hold at this time and see pt different time/date as schedule allows and pt appropriate. * Kimberlee Alejandra RN - 01/29/2025 9:31 AM CDT 01/29/25 0930 Interdisciplinary Group Conference Team Members Present Physician;Nursing;Case/Care management Physician present for group conference Dr. David Saucedo Patient Current Status Paient current status Inpatient Barriers to Discharge Inpatient Review Barriers to Discharge Inpatient No Barrier- Medical Milestone in Process No Barrier- Medical Milestone in Process follow up Not medically ready. PEG today. TFs to goal following placement. 2-3 days per MD. [facility] accepts. Patient expects to be discharged to Patient expects to be discharged to: Inpatient Rehab Facility (IRF) 1220: Senior Operations Analyst spoke with daughter regarding placement at discharge. She chooses [facility] over [facility]. AM 1230: Received Call from Ada at [facility]. She states that P2P will have to be completed prior to [facility] approval and they are requesting this be done today by 1600. P2P : [phone] Option #5 and reference #: [id number]. Will update MD. AM 1315: MD completed P2P. AM * Jazmin Plata RN - 01/28/2025 9:14 PM CDT Problem: Discharge Planning Goal: Knowledge of discharge instructions Outcome: Progressing Problem: Pain control/comfort Goal: Promote pain control/comfort Outcome: Progressing Problem: Skin integrity, Impaired-wound Goal: Absence of new skin breakdown Outcome: Progressing Goal: Evidence of wound healing Outcome: Progressing Problem: Skin integrity, Impaired-pressure injury/ulcer Goal: Absence of new skin breakdown Outcome: Progressing Goal: Evidence of pressure injury/ulcer healing Outcome: Progressing Problem: Skin integrity, at risk Goal: Absence of new skin breakdown Outcome: Progressing Problem: Moisture associated skin impairment Goal: Reduce moisture exposure Outcome: Progressing Goal: Evidence of wound healing Outcome: Progressing Goal: Evidence of pressure injury/ulcer healing Outcome: Progressing Goal: Absence of new skin breakdown Outcome: Progressing Problem: Daily Care Goal: Daily care needs are met Description: Assess and monitor ability to perform self care and identify potential discharge needs. Outcome: Progressing * Devonte Kohler MD - 01/28/2025 1:37 PM CDT Images from the original note were not included. [employer] Hospitalist Progress note Chief Complain: Acute CVA ASSESSMENT /PLAN: Олег Watson is a 69-year-old male with PMH of uncontrolled type 2 diabetes mellitus, HTN, MA, CABG, and mitral regurgitation presented to ED on 01/19/2025 as a category 3 trauma with ground-level fall. He was found to have chronic C2 fracture, no acute injuries. Stat stroke was called on 01/20/2025nd MRI brain demonstrated left-sided ischemic stroke in the basal ganglia and adjacent temporal lobe. Patient was evaluated by neurovascular team, ortho-spine, and PM&R. He failed bedside swallow and also failed DIRECTOR OF MEDICARE eval. Currently has Keofed with tube feeds, DIRECTOR OF MEDICARE continues to follow for advancing diet versus PEG tube. PT/OT recommending inpatient rehab, referrals have been sent by case management. Hospitalist team was contacted on 01/24/2025 to take over as primary service. . 1 Chronic C2 fracture, ground-level fall 01/19/2025 Admitted by trauma service, transition to hospitalist 01/24/2025 [place] [facility] cervical collar at all times per ortho-spine PT/OT recommending inpatient rehab, referrals pending Pain control Fall precautions Wean oxygen as tolerated Outpatient follow-up with Dr. Montanez 2. Acute ischemic stroke, RUE/RLE weakness, dysarthria, dysphagia Left basal ganglia and adjacent temporal lobe small acute strokes on MRI from 01/20/2025 Failed bedside swallow, NPO per DIRECTOR OF MEDICARE, discussed with speech PEG tube okay with family -plan for PEG tube placement on Wednesday Patient pulled out NG tube yesterday. Discussed with radiology. He needs 1 placed in as he needs a barium to be given through NG tube tonight for PEG placement tomorrow. Will get new NG tube. Meds per Mayda, dietitian consulted for tube feeds, appreciate their recommendations -- Daily CBC,BMP, Mg, and Phos Strict I&O Stroke team following, appreciate their recommendations PM&R following, appreciate their recommendations, Continue ASA and statin Monitor on telemetry PT/OT recommending inpatient rehab, referrals pending 3. Uncontrolled type II diabetes management per endocrinology Patient's home regimen includes Lantus and lispro, patient reports compliance Most recent HbA1c 12.3% from 01/19/2025 [place] endocrinology consulted, appreciate their recommendations NG tube feeds were on hold as he pulled out NG tube yesterday. Continue D5 normal saline for now. Will defer to endocrinology to manage insulin so as to avoid duplication of orders 4. HTN Continue to monitor hypertension . SBP goal to < 140. 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 Continue lisinopril, Will increase metoprolol dose to better control heart rate and blood pressure 5. Hx MA, CABG, mitral regurgitation Continue aspirin statin beta-jazlyn 6 acute on chronic diastolic HFpEF EF of 63% echo done on 12/25 Chest x-ray with pulmonary congestion Continue Lasix 40 mg daily 7. Increase secretions responding well to hypertonic saline scopolamine patch reevaluate need for scopolamine patch in 2 to 3 days chest x-ray noted congestion continue Lasix Body mass index is 28.73 kg/m??. CODE STATUS: Full code Discussed with daughter and discussed with speech orders for PEG placed PEG will be placed on Wednesday Body mass index is 26.26 kg/m??. DVT Prophylaxis: Continue heparin DC heparin Wednesday night Code Status: Full Code Disposition/Discharge plan: PEG on Wednesday probably couple of days after that I have ordered, reviewed and interpreted all Labs . I have reviewed and interpreted all Imaging . Ihdiandra reviewed,ordered and prescribed all necessary medications. I have reviewed and interpreted allconsultant notes. Case was discussed w/ the patient and/or POA. All questions were answered & concerns addressed. Case was also discussed with case management AND SUPERVISOR EPOXY FABRICATION. DEVONTE KOHLER MD 1:37 PM 01/28/2025 SUBJECTIVE Patient seen and examined. Secretions improving today more awake and alert REVIEW OF SYSTEMS Negative for 12 system except mentioned SUBJECTIVE OBJECTIVE Wt Readings from Last 3 Encounters: 01/27/25 85.4 kg (188 lb 4.4 oz) 11/01/24 93.4 kg (206 lb) 10/17/24 95.3 kg (210 lb) Temp: 98.8 ??F (37.1 ??C) BP Readings from Last 3 Encounters: 01/28/25 (!) 163/86 01/11/25 (!) 118/93 12/14/24 108/84 Pulse Readings from Last 3 Encounters: 01/28/25 (!) 112 01/11/25 92 12/14/24 96 PHYSICAL EXAMINATION: General Appearance: Moderately built and nourished. head: atraumatic, normocephalic. Eyes: Pupils equal and reactive to light. No discharge.no nystagmus. Ears: Normal Tympanic membrane and external ear canal . Throat: Lips, mucosa, and tongue,teeth and gums normal. Neck: Has collar Lungs: Clear to auscultation bilaterally, respirations unlabored . No wheeze or rhonchi present. Nochest wall tenderness. Heart: S1 and S2 normal, no murmur, rub or gallop . Abdomen: Soft,non-tender, bowel sounds active all four quadrants, no masses, no organomegaly detected. Extremities: Extremities normal, atraumatic, no cyanosis or edema or clubbing Pulses: 2+ and symmetric all extremities Lymph nodes: Cervical, supraclavicular, and axillary nodes normal Neurologic: CNII-XII intact. Awake. Rt Weakness LABS: Recent Labs 01/26/25 0156 01/27/25 0210 WBC 7.53 7.46 HGB 13.3 13.9 HCT 41.6 43.9 MCV 90.0 91.1 PLT 198 193 RBC 4.62 4.82 Recent Labs 01/26/2515501/27/25 021 ALT 22 -- AST 27 -- CO2 29.7 32.3* CL 103 103 GLU 183* 122* K 3.7 3.8 NA 139 140 BUN 36* 41* Intake/Output Summary (Last 24 hours) at 01/28/2025 1337 Last data filed at 01/28/2025 0325 Gross per 24 hour Intake 0 ml Output -- Net 0 ml Microbiology Results (last 14 days) No results found for the last 336 hours. Radiology MEDICATIONS Scheduled medications aspirin 81 mg Tube Daily atorvastatin 80 mg Tube Nightly at bedtime barium sulfate 176 g Oral Once [START ON 01/29/2025] furosemide 40 mg Tube Daily heparin (porcine) 5,000 Units Subcutaneous 2 times per day insulin lispro 0-16 Units Subcutaneous Q4H lansoprazole 30 mg Tube QAM AC lidocaine 1 patch Transdermal Q24H lidocaine viscous 15 mL Mouth/Throat Once lisinopril 5 mg Tube Daily metoprolol tartrate 25 mg Tube BID multivitamin 1 tablet Tube Daily protein supplement 1 packet Feeding Tube Daily scopolamine 1 patch Transdermal Q72H senna-docusate 1 tablet Tube BID sodium chloride 4 mL Nebulization 2 times daily RT thiamine 100 mg Tube Daily Infusion dextrose 5 %-sodium chloride 0.9 % 50 mL/hr at 01/28/25 0949 TF diabetic w/Fiber Stopped (01/27/25 1702) PRN acetaminophen OR acetaminophen OR acetaminophen, albuterol, atropine, hydrALAZINE, HYDROcodone-acetaminophen, labetalol, naLOXone, ondansetron, oxyCODONE immediate release * Antonieta Dan PTA - 01/28/2025 12:44 PM CDT PT Treatment Discharge Recommendation: Inpatient Rehab Activity Recommendation for zipper setter chainstitch: up with 2, pivot transfer, gait belt or lift equipment 01/28/25 0908 Therapy Visit Ordering Provider Phylicia Howard NP Subjective Upon entering room 850, patient was in supine and agreeable to therapy. Reason for admission Pt presents after fall from bed at home. 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 While at hospital, pt found to have acute right sided weakness and blurry vision.MRI demonstrates: small acute left-sided strokes in the left basal ganglia, adjacent temporal lobe,possible additional stroke in the inferomedial left temporal lobe, volume loss and probable small ve ssel disease. ......PMH: Acute myocardial infarction, Ankle fracture, fracture left fibula, Coronary artery disease, Diabetes, DKA, HTN, Eustachian tube dysfunction, HLD, Hx of CABG, Microalbuminuria, Myocardial infarction, Non- rheumatic mitral regurgitation .........Therapy orders: eval and treat.. ..Activity as tolerated, up at jahaira with collar Verified Two Patient Identifiers Yes Patient consents to therapy Yes Acute Inpatient PT Time Calculation PT Start Time 0908 PT Stop Time 0932 PT Time Calculation (min) 24 min Precautions Spine Precautions Bending;Lifting;Twisting Neck Brace Applied Yes General Precautions Aspiration;Bed Alarm;Chair Alarm;Fall Risk Instructed on Precautions Yes;Needs reinforcement and education Other c-spine precautions with Kayla Cain at all times, keofed, telemetry, purewick, NPO Prior Function PLOF Comments Per eval, patient lives alone in a 1.5 story house, but resides on the main floor only. There are 2-3 steps to enter, no handrail. Bathroom has a tub/shower combo without a seat or grabbar, standard height toilet seat with vanity nearby for support. Patient owns a 2 wh/walker, but typically does not use any assistive devices. He states he is independent with all mobility, ADL's andIADL's, still drives and does errands. He reports no available assistance. Patient reports during the most recent fall he fell attempting to get out ofb bed. He reports another recent fall on the sidewalk last week, hitting his chest.........Daughter states that if necessary, her father can stay with her and the daughter's fiance. They live in a 2 story house, but patient will reside on main floor. There are 4 steps with a handrail to enter. Bathroom is a tub/shower combo with standard toilet and vanity. Daughter works shift stacker as an RN, but her fiance will be home as needed for 17/05 supervision. Pain Pain Yes Pain Score Did not rate Location neck Interventions Informed RN;Re-positioning Activity Tolerance Endurance Quality Good Limiting Factors to Endurance Weakness;Pain;Fatigue;Acute deconditioning Cognition Overall Cognitive Status Impaired Arousal/Alertness Delayed responses to stimuli Attention Span Attends with cues to redirect Memory Decreased short term memory Orientation Level Oriented to situation;Oriented to person Following Commands Follows one step commands with repetition Safety Judgment Decreased awareness of need for assistance Awareness of Errors Assistance required to identify errors made Deficits Decreased awareness of deficits Comments difficult to understand at times, SUN'AQ Bed Mobility Supine to Sit Mod assist to right Other (Comment) via log rolling, mod A to get trunk upright TRANSFERS Sit to Stand Mod assist Bed to Chair Mod assist Other (Comment) Patient performed sit <> stand from EOB, BUE support on therapist, mod A and took steps to chair with mod A for balance/weight shifting due to difficulty clearing RLE off floor.Once in chair, refused further sit <> stands Gait Other (Comment) will attempt next session with 2ww with second person for chair follow Balance Sitting - Static CGA Sitting - Dynamic Min Assist Standing - Static Mod Assist;Support of both upper extremities;Assist of 2 Persons Standing - Dynamic Mod Assist;Support of both upper extremities;Assist of 2 Persons Other (Comment) improving sitting balance and standing transfers, high falls risk due to R sided weakness and balance deficits PT Assessment PT Assessment Patient tolerated treatment session fair this date as patient demonstrates some self limiting behaviors refusing further attempts to stand from the chair. Communicated with RN regardingpatient wanting pain meds for neck pain. Will attempt walking with 2ww next session when a second person can assist with a chair follow. Will continue to reasses over the next 1-2 sessions on appropriate discharge recommendations. Modified Marlena Score Interval Daily Interval Score 0-6 4 Discharge Recommendation PT Recommendation Inpatient rehab Plan PT Treatments/Interventions Gait Training;Manual Therapy;Therapeutic Exercises;Therapeutic Activities;Neuromuscular re-education;Patient/family training Progress Slow progress, medical status limitations PT Frequency 5 times/week PT - Next Appointment 01/28/25 If this is the last treatment note,it will serve as the discharge summary Yes End of Session End of Session Safety Chair alarm set/activated;Call light within reach;Nursing aware of session Education: Primary Learners Name: Олег Watson Primary Language of learner: Mosotho Patient was educated on stroke rehabilitation management precautions transfers balance bed mobility therapy plan gait safety. Education was completed one to one verbal hands-on demonstration this date. Preference of learning new concepts one to one verbal hands-on demonstration Barriers to education this date were Pt motivation pain fatigue cognition. Response to education this date verbalized understanding needs follow up needs assistance. * Ludwig Coe MD - 01/28/2025 11:32 AM CDT Endocrinology Progress Note Reason For Follow-up: Uncontrolled type 2 DM in setting of CVA Interval History: Pulled out Keofed again today. Plan is for PEG tube placement AM of 01/29/2025. Glucerna 1.2 tube feeding had been infusing at 65 mL/hr continously. This provides approximately 163 gof carbohydrates per day. The patient received 131 units of insulin over the past 24 hours. I reviewed his glycemic profile in detail with him today. Oriented to person and place today. Medications Current Facility-Administered Medications Medication Dose Route Frequency Provider Last Rate Last Admin acetaminophen (TYLENOL) tablet 650 mg 650 mg Tube Q4H PRN Emiliano Donaldson MD Or acetaminophen (TYLENOL) suppository 650 mg 650 mg Rectal Q4H PRN Emiliano Donaldson MD Or acetaminophen (TYLENOL) 160 MG/5ML solution 650 mg 650 mg Tube Q4H PRN Emiliano Donaldson MD 650 mg at 01/25/25 0506 albuterol (PROVENTIL) (2.5 MG/3ML) 0.083% nebulizer solution 2.5 mg 2.5 mg Nebulization BID PRN Naya Gonzalez MD 2.5 mg at 01/26/25 1919 aspirin chewable tablet 81 mg 81 mg Tube Daily Emiliano Donaldson MD 81 mg at 01/28/25 0951 atorvastatin (LIPITOR) tablet 80 mg 80 mg Tube Nightly at bedtime Emiliano Donaldson MD 80 mg at 01/27/25 2043 atropine 1 % ophthalmic solution 1 drop 1 drop Sublingual TID PRN Naya Gonzalez MD barium sulfate (E-Z-PAQUE) 96 % suspension 176 g 176 g Oral Once Jluis Blum MD dextrose 5 %-sodium chloride 0.9 % infusion Intravenous Continuous Devonte Kohler MD 50 mL/hr at 01/28/25 0949 New Bag at 01/28/25 0949 furosemide (LASIX) tablet 40 mg 40 mg Oral Daily Naya Gonzalez MD 40 mg at 01/28/25 0951 heparin (porcine) injection 5,000 Units 5,000 Units Subcutaneous 2 times per day Naya Gonzalez MD 5,000 Units at 01/28/25 0952 hydrALAZINE (APRESOLINE) injection 10 mg 10 mg Intravenous Q6H PRN DONNIE Cruz 10 mg at 01/24/25 0414 HYDROcodone-acetaminophen (NORCO) 5-325 MG tablet 1 tablet 1 tablet Tube Q6H PRN Emiliano Donaldson MD1 tablet at 01/22/25 2348 insulin lispro (HUMALOG/ADMELOG) injection 0-16 Units 0-16 Units Subcutaneous Q4H Ludwig Coe MD 12 Units at 01/28/25 0012 labetalol (TRANDATE) injection 20 mg 20 mg Intravenous Q6H PRN LYNN Garner 20 mg at 01/23/25 1314 lansoprazole (PREVACID SOLUTAB) disintegrating tablet 30 mg 30 mg Tube QAM AC Emiliano Donaldson MD 30mg at 01/27/25 0608 lidocaine 4 % patch 1 patch 1 patch Transdermal Q24H Phylicia Howard NP 1 patch at 01/27/25 2043 lidocaine viscous (XYLOCAINE) 2 % solution 15 mL 15 mL Mouth/Throat Once Naya Gonzalez MD lisinopril (PRINIVIL) tablet 5 mg 5 mg Tube Daily Emiliano Donaldson MD 5 mg at 01/28/25 0951 metoprolol tartrate (LOPRESSOR) tablet 25 mg 25 mg Tube BID SALEEM CruzP 25 mg at [id number] multi vitamin/minerals (THERA-M ENHANCED) tablet 1 tablet 1 tablet Tube Daily SALEEM CruzP1 tablet at 01/28/25 0951 naLOXone (NARCAN) injection 0.4 mg 0.4 mg Intravenous PRN Phylicia Howard, STER[place]ING ondansetron (ZOFRAN) injection 4 mg 4 mg Intravenous Q8H PRN Phylicia Howard, STERLING oxyCODONE immediate release (ROXICODONE) tablet 5 mg 5 mg Tube Q6H PRN Emiliano Donaldson MD 5 mg at 01/28/25 0951 protein supplement (PROSOURCE) packet 1 packet 1 packet Feeding Tube Daily Sandra Ray DO 1 packet at 01/27/25 0904 scopolamine (TRANSDERM-SCOP) 1 MG/3DAYS patch 1 patch 1 patch Transdermal Q72H Naya Gonzalez MD1 patch at 01/27/25 1652 senna-docusate (SENOKOT-S) 8.6-50 MG tablet 1 tablet 1 tablet Tube BID Emiliano Donaldson MD 1 tablet at 01/28/25 0951 sodium chloride 7 % nebulizer solution 4 mL 4 mL Nebulization 2 times daily RT Naya Gonzalez MD4 mL at 01/28/25 0954 TF diabetic w/Fiber (GLUCERNA 1.2) liquid 20-65 mL/hr Feeding Tube Continuous Sandra Ray DOHeld at 01/27/25 1702 vitamin B-1 (THIAMINE) tablet 100 mg 100 mg Tube Daily Sandra Ray DO 100 mg at 01/28/25 0951 Review of patient's allergies indicates: No Known Allergies Review of Systems Constitutional: Positive for fatigue. Respiratory: Negative. Cardiovascular: Negative. Endocrine: Reviewed glycemic profile with the patient today. Neurological: Notes weakness of his right arm and leg, but this is less pronounced as compared to hospital presentation per his report. Vitals: 01/28/25 0325 BP: (!) 151/80 Pulse: (!) 111 Resp: 20 Temp: 98.8 ??F (37.1 ??C) SpO2: 97% Physical Exam Constitutional: Comments: No acute distress. Appears older than stated age. Wearing cervical spine collar. Sitting up in chair. HENT: Mouth/Throat: Mouth: Mucous membranes are dry. Pharynx: Oropharynx is clear. Eyes: Extraocular Movements: Extraocular movements intact. Pupils: Pupils are equal, round, and reactive to light. Cardiovascular: Rate and Rhythm: Normal rate and regular rhythm. Comments: Occasional ectopic beats noted. Pulmonary: Effort: Pulmonary effort is normal. Abdominal: General: Abdomen is flat. Bowel sounds are normal. Palpations: Abdomen is soft. Musculoskeletal: Right lower leg: No edema. Left lower leg: No edema. Skin: General: Skin is warm and dry. Neurological: Mental Status: He is alert. Comments: Able to move all extremities to command. Strength of the right arm and leg less than thatof the left arm and leg. Oriented to person and place today. Recent Labs Lab 01/27/25 0354 01/27/25 0831 01/27/25 1128 01/27/25 1548 01/27/25 2035 01/27/25 2320 01/28/25 0446 GLUCOSEPOC 124* 253* 251* 152* 165* 188* 128* Assessment and Recommendations Outpatient endocrine provider: Tiffani Sen NP, [facility] in [place] A1c here 12.3% Prescribed home diabetes regimen (noncompliant with program): Metformin 1000 mg with breakfast and supper, glimepiride 2 mg with breakfast, pioglitazone 30 mg daily, Lantus 30 units every morning, Humalog 6 units before meals add 2:100 >200. Uncontrolled DM type 2: Glycemic profile has improved overall. However, it does not appear that he had an 8 AM glucose value or any correctional Humalog administered today. Lantus was 30 units every 12 hours. Lantus was discontinued after the morning dose January 28, 2025 in anticipation of the patient's n.p.o. status beginning at midnight tonight. The plan is for the patient's Keofeed to be replaced this afternoon as he will require barium at 6 PM this evening. Tube feedings will then be discontinued at midnight tonight. Humalog will continue every 4 hours based on correctional scale. Glucerna 1.2 tubefeeding at 65 mL/hr continuously provides 163 g of carbohydrates per [address] Roseanna Ha covers [place] Endocrine service beginning at 8AM on 01/29/2025. Thank you. Medical noncompliance in the outpatient setting: Upon discharge will require ECF. Cerebrovascular disease admitted with left basal ganglia and temporal lobe CVA: Management as per primary service. Patient has not been cleared to swallow by speech therapy. BMI 26: Likely pathologically low given uncontrolled DM type 2 and poor self- care in the outpatientsetting. LUDWIG COE MD * Jillian Alvarado RN - 01/27/2025 11:07 PM CDT Problem: Discharge Planning Goal: Knowledge of discharge instructions Outcome: Progressing Problem: Skin integrity, Impaired-wound Goal: Absence of new skin breakdown Outcome: Progressing Goal: Evidence of wound healing Outcome: Progressing * Devonte Kohler MD - 01/27/2025 2:31 PM CDT Images from the original note were not included. [employer] Hospitalist Progress note Chief Complain: Acute CVA ASSESSMENT /PLAN: Олег Watson is a 69-year-old male with PMH of uncontrolled type 2 diabetes mellitus, HTN, MA, CABG, and mitral regurgitation presented to ED on 01/19/2025 as a category 3 trauma with ground-level fall. He was found to have chronic C2 fracture, no acute injuries. Stat stroke was called on 01/20/2025nd MRI brain demonstrated left-sided ischemic stroke in the basal ganglia and adjacent temporal lobe. Patient was evaluated by neurovascular team, ortho-spine, and PM&R. He failed bedside swallow and also failed DIRECTOR OF MEDICARE eval. Currently has Keofed with tube feeds, DIRECTOR OF MEDICARE continues to follow for advancing diet versus PEG tube. PT/OT recommending inpatient rehab, referrals have been sent by case management. Hospitalist team was contacted on 01/24/2025 to take over as primary service. . 1 Chronic C2 fracture, ground-level fall 01/19/2025 Admitted by trauma service, transition to hospitalist 01/24/2025 Kayla Cain cervical collar at all times per ortho-spine PT/OT recommending inpatient rehab, referrals pending Pain control Fall precautions Wean oxygen as tolerated Outpatient follow-up with Dr. Montanez 2. Acute ischemic stroke, RUE/RLE weakness, dysarthria, dysphagia Left basal ganglia and adjacent temporal lobe small acute strokes on MRI from 01/20/2025 Failed bedside swallow, NPO per DIRECTOR OF MEDICARE, discussed with speech PEG tube okay with family -plan for PEG tube placement on Wednesday Meds per Mayda, dietitian consulted for tube feeds, appreciate their recommendations -- Daily CBC,BMP, Mg, and Phos Strict I&O Stroke team following, appreciate their recommendations PM&R following, appreciate their recommendations, Continue ASA and statin Monitor on telemetry PT/OT recommending inpatient rehab, referrals pending 3. Uncontrolled type II diabetes management per endocrinology Patient's home regimen includes Lantus and lispro, patient reports compliance Most recent HbA1c 12.3% from 01/19/2025 [place] endocrinology consulted, appreciate their recommendations Blood sugar controlled on current regimen 4. HTN Continue to monitor hypertension . SBP goal to < 140. 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 Continue lisinopril, Will increase metoprolol dose to better control heart rate and blood pressure 5. Hx MA, CABG, mitral regurgitation Continue aspirin statin beta-jazlyn 6 acute on chronic diastolic HFpEF EF of 63% echo done on 12/25 Chest x-ray with pulmonary congestion Continue Lasix 40 mg daily 7. Increase secretions responding well to hypertonic saline scopolamine patch reevaluate need for scopolamine patch in 2 to 3 days chest x-ray noted congestion continue Lasix Body mass index is 28.73 kg/m??. CODE STATUS: Full code Discussed with daughter and discussed with speech orders for PEG placed PEG will be placed on Wednesday Body mass index is 26.26 kg/m??. DVT Prophylaxis: Continue heparin DC heparin Wednesday night Code Status: Full Code Disposition/Discharge plan: PEG on Wednesday probably couple of days after that I have ordered, reviewed and interpreted all Labs . I have reviewed and interpreted all Imaging . Ihave reviewed,ordered and prescribed all necessary medications. I have reviewed and interpreted allconsultant notes. Case was discussed w/ the patient and/or POA. All questions were answered & concerns addressed. Case was also discussed with case management AND SUPERVISOR EPOXY FABRICATION. DEVONTE KOHLER MD 2:31 PM 01/27/2025 SUBJECTIVE Patient seen and examined. Secretions improving today more awake and alert REVIEW OF SYSTEMS Negative for 12 system except mentioned SUBJECTIVE OBJECTIVE Wt Readings from Last 3 Encounters: 01/27/25 85.4 kg (188 lb 4.4 oz) 11/01/24 93.4 kg (206 lb) 10/17/24 95.3 kg (210 lb) Temp: 98.2 ??F (36.8 ??C) BP Readings from Last 3 Encounters: 01/27/25 (!) 140/66 01/11/25 (!) 118/93 12/14/24 108/84 Pulse Readings from Last 3 Encounters: 01/27/25 (!) 102 01/11/25 92 12/14/24 96 PHYSICAL EXAMINATION: General Appearance: Moderately built and nourished. head: atraumatic, normocephalic. Eyes: Pupils equal and reactive to light. No discharge.no nystagmus. Ears: Normal Tympanic membrane and external ear canal . Throat: Lips, mucosa, and tongue,teeth and gums normal. Neck: Has collar Lungs: Clear to auscultation bilaterally, respirations unlabored . No wheeze or rhonchi present. Nochest wall tenderness. Heart: S1 and S2 normal, no murmur, rub or gallop . Abdomen: Soft,non-tender, bowel sounds active all four quadrants, no masses, no organomegaly detected. Extremities: Extremities normal, atraumatic, no cyanosis or edema or clubbing Pulses: 2+ and symmetric all extremities Lymph nodes: Cervical, supraclavicular, and axillary nodes normal Neurologic: CNII-XII intact. Awake. Rt Weakness LABS: Recent Labs 01/25/25 0144 01/26/25 0156 01/27/25 0210 WBC 9.31 7.53 7.46 HGB 13.7 13.3 13.9 HCT 41.5 41.6 43.9 MCV 88.9 90.0 91.1 PLT 198 198 193 RBC 4.67 4.62 4.82 Recent Labs 01/25/25 0144 01/26/25 0156 01/27/25 0210 ALT -- 22 -- AST -- 27 -- CO2 27.5 29.7 32.3* CL 101 103 103 GLU 247* 183* 122* K 3.7 3.7 3.8 NA 136 139 140 BUN 31* 36* 41* Intake/Output Summary (Last 24 hours) at 01/27/2025 1431 Last data filed at 01/27/2025 0424 Gross per 24 hour Intake 0 ml Output 1250 ml Net -1250 ml Microbiology Results (last 14 days) No results found for the last 336 hours. Radiology MEDICATIONS Scheduled medications aspirin 81 mg Tube Daily atorvastatin 80 mg Tube Nightly at bedtime [START ON 01/28/2025] barium sulfate 176 g Oral Once furosemide 40 mg Oral Daily heparin (porcine) 5,000 Units Subcutaneous 2 times per day insulin glargine 30 Units Subcutaneous Q12H insulin lispro 0-16 Units Subcutaneous Q4H lansoprazole 30 mg Tube QAM AC lidocaine 1 patch Transdermal Q24H lidocaine viscous 15 mL Mouth/Throat Once lisinopril 5 mg Tube Daily metoprolol tartrate 25 mg Tube BID multivitamin 1 tablet Tube Daily protein supplement 1 packet Feeding Tube Daily scopolamine 1 patch Transdermal Q72H senna-docusate 1 tablet Tube BID sodium chloride 4 mL Nebulization 2 times daily RT thiamine 100 mg Tube Daily Infusion TF diabetic w/Fiber 65 mL/hr (01/26/25 0100) PRN acetaminophen OR acetaminophen OR acetaminophen, albuterol, atropine, hydrALAZINE, HYDROcodone-acetaminophen, labetalol, naLOXone, ondansetron, oxyCODONE immediate release * Robin Sharma NP - 01/27/2025 10:07 AM CDT Images from the original note were not included. Vascular and Interventional Neurology Inpatient Progress Note Office Олег Watson 1955 [id number] Assessment: 1) Acute Ischemic Stroke Олег Watson presented after a fall. He was later found to have right hemiparesis. The etiology ofthe stroke is embolic. CT head on 01/20 showed no hemorrhage. CTA head and neck on 01/20 showed no LVO. No significant carotid stenosis. MRI brain on 01/20 showed a small acute stroke to the left basal ganglia and left temporal lobe (left anterior choroidal territory). Echo on 01/21 showed EF 63%, left atrial volume normal, no PFO. CT Head on 01/24 showed no acute abnormality. 2) Ground-Level Fall 3) C2 Fracture RECOMMENDATIONS/PLAN No changes from prior plan He appears to be doing better than last time I saw him. He is able to lift his RUE and RLE both offthe bed again. Strength is improving. Continue aspirin 81 mg EP, Dr Trujillo, for atrial fibrillation work up He should get a 30 day heart monitor to check for atrial fibrillation. If 30 day heart monitor is negative, he would be a candidate for an implantable loop recorder. SBP goal to < 140. FDC SBP goal < 130/70. This can be achieved as an outpatient. Discharge planning with SBP in the 140s-150s is acceptable when appropriate. LDL 72. We would recommend using a statin medication to achieve LDL < 70. Takes home atorvastatin 40 mg. Continue this. HgbA1C 12.3. Goal A1C < 7.0. Management per hospitalist/endocrinology. Follow Stroke Order Set, unless otherwise specified Neuro checks per protocol. Please call with any acute neurological changes. Vital Signs per protocol. Telemetry to monitor for occult atrial fibrillation. If present, confirm with 12 lead EKG. SCD's and Lovenox for DVT prophylaxis. PT/OT - inpatient rehab ST - strict NPO Vascular Neurology will follow PRN at this time. Please contact the stroke provider vocational psychologist with any further questions or concerns. Our office will arrange follow up as an outpatient with myself. Michael Sharma APRN [facility] Neurology Patient: Олег Watson is being seen for ischemic stroke. Since last seen, he is doing some better.He is able to move the RUE more. He is able to lift the RLE off the bed. Speech is still dysarthric. Vital Signs: Reviewed. Filed Vitals: 01/26/25 2328 01/27/25 0400 01/27/25 0424 01/27/25 0829 BP: 128/82 128/75 (!) 153/76 Pulse: 96 (!) 104 (!) 105 Resp: 20 18 Temp: 98.4 ??F (36.9 ??C) 98.2 ??F (36.8 ??C) TempSrc: Oral Oral SpO2: 97% 96% 92% Weight: 85.4 kg (188 lb 4.4 oz) Height: Physical Exam: Constitutional: Well-developed and well-nourished. HEENT: Normocephalic Respiratory: Trouble clearing secretions - I oropharyngeal suctioned him again. Cardiology: Regular rate and rhythm MSK: [place] J Collar in place. Skin: Warm and dry. Neurological Exam Mental Status Awake and alert. dysarthria present. Language is fluent with no aphasia. Cranial Nerves CN II: Visual acuity is normal. Visual bhardwaj full to confrontation. CN III, IV, : Extraocular movements intact bilaterally. Normal lids and orbits bilaterally. Pupils equal round and reactive to light bilaterally. CN V: Facial sensation is normal. CN VII: Full and symmetric facial movement. CN VIII: Hearing is normal. CN IX, X: Palate elevates symmetrically. Normal gag reflex. CN XI: Shoulder shrug strength is normal. CN XII: Tongue midline without atrophy or fasciculations. Motor Normal muscle bulk throughout. Able to lift all extremities off the bed antigravity today to command. . Labs: Recent Labs Lab 01/25/25 0144 01/26/25 0156 01/27/25 0210 WBC 9.31 7.53 7.46 RBC 4.67 4.62 4.82 HGB 13.7 13.3 13.9 HCT 41.5 41.6 43.9 MCV 88.9 90.0 91.1 MCH 29.3 28.8 28.8 MCHC 33.0 32.0* 31.7* PLT 198 198 193 RDW 12.8 12.9 12.8 MPV 9.9 9.6 9.8 NEUC 7.24 5.79 5.37 LYMC 0.87 0.79* 1.08 MONOC 1.13 0.90 0.92 EOSC 0.00 0.01 0.03 BASOC 0.02 0.02 0.02 DTYPE AUTOMATED DIFFERENTIAL AUTOMATED DIFFERENTIAL AUTOMATED DIFFERENTIAL , Recent Labs Lab 01/20/25 1124 01/21/25 0340 01/25/25 0144 01/26/25 0156 01/27/25 0210 NA 135* < > 136 139 140 K 4.2 < > 3.7 3.7 3.8 CL 102 < > 101 103 103 CO2 24.6 < > 27.5 29.7 32.3* AGAP 8.4 < > 7.5 6.3 4.7 BUN 12 < > 31* 36* 41* CR 1.45* < > 1.42* 1.33* 1.29 GLU 272* < > 247* 183* 122* CA 9.2 < > 9.8 9.3 9.4 TP 6.6 -- -- 7.1 -- ALB 2.9* -- -- 2.3* -- TBIL 0.3 -- -- 0.4 -- ALKP 87 -- -- 106 -- AST 16 -- -- 27 -- ALT 19 -- -- 22 -- < > = values in this interval not displayed. , Recent Labs Lab 01/20/25 1124 PTT 33.8 INR 1.0 , Recent Labs Lab 01/20/25 1122 01/20/25 1124 TROP -- 9 CPK 121 -- MB <1.0 -- , No results for input(s): PH , PCO2 , PO2 , D6CDEVFRYQDR , BICARBWB , BASEDEFICIT , BASEEXCESS in the last 168 hours., and Recent Labs Lab 01/21/25 0340 CHOL 137 TRI 137 HDL 38* LDL 72 Current Facility-Administered Medications: acetaminophen (TYLENOL) tablet 650 mg, 650 mg, Tube, Q4H PRN OR acetaminophen (TYLENOL) suppository 650 mg, 650 mg, Rectal, Q4H PRN OR acetaminophen (TYLENOL) 160 MG/5ML solution 650 mg, 650 mg, Tube, Q4H PRN, Emiliano Donaldson MD, 650 mg at 01/25/25 0506 albuterol (PROVENTIL) (2.5 MG/3ML) 0.083% nebulizer solution 2.5 mg, 2.5 mg, Nebulization, BID PRN,Naya Gonzalez MD, 2.5 mg at 01/26/25 1919 aspirin chewable tablet 81 mg, 81 mg, Tube, Daily, Emiliano Donaldson MD, 81 mg at 01/27/25 09 atorvastatin (LIPITOR) tablet 80 mg, 80 mg, Tube, Nightly at bedtime, Emiliano Donaldson MD, 80 mg at 01/26/252151 atropine 1 % ophthalmic solution 1 drop, 1 drop, Sublingual, TID PRN, Naya Gonzalez MD [START ON 01/28/2025] barium sulfate (E-Z-PAQUE) 96 % suspension 176 g, 176 g, Oral, Once, Jluis Blum MD furosemide (LASIX) tablet 40 mg, 40 mg, Oral, Daily, Naya Gonzalez MD, 40 mg at 01/27/25 09 heparin (porcine) injection 5,000 Units, 5,000 Units, Subcutaneous, 2 times per day, Naya Gonzalez MD, 5,000 Units at 01/27/25 0903 hydrALAZINE (APRESOLINE) injection 10 mg, 10 mg, Intravenous, Q6H PRN, DONNIE Cruz, 10 mgat 01/24/25 0414 HYDROcodone-acetaminophen (NORCO) 5-325 MG tablet 1 tablet, 1 tablet, Tube, Q6H PRN, Emiliano Donaldson MD, 1 tablet at 01/22/25 2348 insulin glargine (LANTUS) injection 30 Units, 30 Units, Subcutaneous, Q12H, DONNIE Linton,30 Units at 01/27/25 0903 insulin lispro (HUMALOG/ADMELOG) injection 0-16 Units, 0-16 Units, Subcutaneous, Q4H, Naya Gonzalez MD, 16 Units at 01/27/25 0900 labetalol (TRANDATE) injection 20 mg, 20 mg, Intravenous, Q6H PRN, Dennys Downs, LYNN, 20 mg at 01/23/25 1314 lansoprazole (PREVACID SOLUTAB) disintegrating tablet 30 mg, 30 mg, Tube, QAM AC, Emiliano Donaldson MD, 30 mg at 01/27/25 0608 lidocaine 4 % patch 1 patch, 1 patch, Transdermal, Q24H, Phylicia Howard NP, 1 patch at 01/26/25 2151 lidocaine viscous (XYLOCAINE) 2 % solution 15 mL, 15 mL, Mouth/Throat, Once, Naya Gonzalez MD lisinopril (PRINIVIL) tablet 5 mg, 5 mg, Tube, Daily, Emiliano Donaldson MD, 5 mg at 01/27/25 0903 metoprolol tartrate (LOPRESSOR) tablet 25 mg, 25 mg, Tube, BID, DONNIE Cruz, 25 mg at 01/27/25 0903 multi vitamin/minerals (THERA-M ENHANCED) tablet 1 tablet, 1 tablet, Tube, Daily, DONNIE Cruz, 1 tablet at 01/27/25 0903 naLOXone (NARCAN) injection 0.4 mg, 0.4 mg, Intravenous, PRN, Phylicia Howard NP ondansetron (ZOFRAN) injection 4 mg, 4 mg, Intravenous, Q8H PRN, Phylicia Howard NP oxyCODONE immediate release (ROXICODONE) tablet 5 mg, 5 mg, Tube, Q6H PRN, Emiliano Donaldson MD, 5 mgat 01/24/25 0341 protein supplement (PROSOURCE) packet 1 packet, 1 packet, Feeding Tube, Daily, Sandra Ray DO, 1 packet at 01/27/25 0904 scopolamine (TRANSDERM-SCOP) 1 MG/3DAYS patch 1 patch, 1 patch, Transdermal, Q72H, Naya Gonzalez MD, 1 patch at 01/24/25 1714 senna-docusate (SENOKOT-S) 8.6-50 MG tablet 1 tablet, 1 tablet, Tube, BID, Emiliano Donaldson MD, 1 tablet at 01/27/25 0903 sodium chloride 7 % nebulizer solution 4 mL, 4 mL, Nebulization, 2 times daily RT, Naya Gonzalez MD, 4 mL at 01/27/25 0845 TF diabetic w/Fiber (GLUCERNA 1.2) liquid, 20-65 mL/hr, Feeding Tube, Continuous, Sandra Ray DO, Last Rate: 65 mL/hr at 01/26/25 0100, 65 mL/hr at 01/26/25 0100 vitamin B-1 (THIAMINE) tablet 100 mg, 100 mg, Tube, Daily, Sandra Ray DO, 100 mg at 01/27/25 0903 Radiology: XR ABD UPRIGHT [[id number]] Collected: 01/26/25 1829 Updated: 01/26/25 1854 Narrative: [place] [address] Examination: Abdomen 1 view Exam time: 15:50 Clinical history: Exam done for keofed pulled out slightly/check position. Comparison: Same day 02/21/2025 feeding tube placement Technique: Single supine view of the abdomen were obtained. Findings: There is an enteric tube with tip projecting over the region of the third portion of the duodenum. This appears similar to fluoroscopic feeding tube placement from earlier today. Mild gaseous distention of visualized bowel. Postsurgical sternotomy wires. Bibasilar atelectasis. Impression: IMPRESSION: Enteric tube in appropriate position, with tip projecting over the region of the third portion of the duodenum. Dictated By: Sinan Brown MD on 01/26/2025 6:29 PM The attending radiologist has reviewed the image(s) and agrees with the content of this report. Ordered By: NAYA GONZALEZ Interpreted By: Sinan Brown MD, 01/26/2025 6:29 PM XR CHEST PORTABLE [[id number]] IR PERC HUI CATH PLCMNT [[id number]] XR NG/FEED TUBE PLCMT FLUORO [[id number]] Collected: 01/25/25 1158 Updated: 01/25/25 1402 Narrative: [facility] [address], [place] [address] EXAMINATION: XR NG/FEED TUBE PLCMT FLUORO EXAM TIME: 01/25/2025 10:52 AM HISTORY: Unable to swallow COMPARISON: Feeding tube 01/21/2025 TECHNIQUE/FINDINGS: Under fluoroscopic guidance, a Keofeed nasoenteric feeding tube was advanced through the left nare, down the esophagus, through the gastroesophageal junction, and into the second portion of the duodenum. Air contrast was used to confirm the placement. A nasal coverlet was then placed to secure the Keofed tube. The tube was flushed with a small amount of water to confirm patency after placement. No immediate complications were noted. Total fluoroscopic time utilized was 4.5 minutes, 1 image(s), and reference air kerma 82.8 mGy for this procedure. Impression: IMPRESSION: Keofeed tube placed into the second portion of the duodenum. The attending radiologist, Dr. Shyam Vigil MD, was available during all critical portions of the procedure, has reviewed the image(s) and agrees with the content of this report. Ordered By: NAYA GONZALEZ Interpreted By: Chucho Crockett MD, 01/25/2025 11:58 AM XR CHEST PORTABLE [[id number]] Collected: 01/25/25 1015 Updated: 01/25/25 1018 Narrative: [facility] [address], [place] [address] PROCEDURE: XR CHEST PORTABLE. 01/25/2025 9:51 AM. TECHNIQUE: A single view of the chest (AP or PA) was performed. HISTORY: Increased secretions. COMPARISON: AP chest radiograph, 01/24/2025. FINDINGS: Support Devices: None. Cardiac Silhouette/Mediastinum/Samantha: The cardiac, mediastinal, and hilar contours are unchanged in appearance. Lungs/Pleural Spaces: Mild pulmonary vascular congestion. No focal consolidation. The pleural spaces are clear. Chest Wall/Diaphragm/Upper Abdomen: The thoracic musculoskeletal structures and the upper abdomen are unchanged in appearance. Median sternotomy wires are present. Impression: IMPRESSION: 1. Mild to moderate pulmonary vascular congestion. 2. No focal consolidation or pneumothorax. Referred By: ISAK KANG Interpreted By: Annette Baker MD, 01/25/2025 10:15 AM XR CHEST PORTABLE [[id number]] Collected: 01/24/252054 Updated: 01/24/252056 Narrative: [address] [address] EXAMINATION: Chest X-Ray 1 View EXAM DATE/TIME: 01/24/2025 8:21 PM REASON FOR EXAM: FEVER/ COUGH COMPARISON: Chest from 05/12/2018 and 06/15/2022. TECHNIQUE: Single upright frontal projection view of the chest was obtained. FINDINGS: There is no focal infiltrate or consolidative change. Heart size is within normal limits for technique. Pulmonary vasculature is within normal limits for technique. There is no large pleural effusion or pneumothorax. ===== Impression: IMPRESSION:===== 1. NO ACUTE CARDIOPULMONARY FINDINGS. Referred By: ISAK KANG Interpreted By: Jad Erazo MD, 01/24/2025 8:[address] HEAD WO CON [[id number]] Collected: 01/24/25 1506 Updated: 01/24/25 1510 Narrative: [address] [address] Examination: CT HEAD WO CON, 01/24/2025 2:49 PM. Technique: Computed tomographic images of the head were obtained without intravenous contrast. Additional coronal and sagittal reformatted images were generated at a separate workstation. A dose lowering technique was used for this procedure, which may include, but is not limited to, dose reductiontechnique, automated exposure control, the use of iterative reconstruction, and ALARA (As Low As Reasonably Achievable) / Image Gently techniques. Clinical history: stroke F/U Comparison: CT head 01/20/2025 Findings: There is no acute intracranial hemorrhage. There is no extra-axial fluid collection. Preserved hightower-white matter differentiation. Mild global cerebral volume loss with ex vacuo dilatation of ventricles and cerebral sulci. Moderate appears chronic calcification the cavernous segments the internal carotid arteries bilaterally. Orbital contents appear normal. Mild mucosal thickening involving the ethmoidal air cells and right maxillary sinus. Mastoid air cells are well aerated. Chronic appearing deformity involving the posterior right parietal calvarium, similar to the prior CT head exam from 01/20/2025 Impression: IMPRESSION: No CT evidence of an acute intracranial abnormality. Ordered By: ROBIN SHARMA Interpreted By: Romulo Bales MD, 01/24/2025 3:06 PM XR FEEDING TUBE PLCMENT [[id number]] Collected: 01/21/25 1455 Updated: 01/22/25 1121 Narrative: [facility] [address], [place] [address] [facility] [address], [place] [address] EXAM: Nasoenteric tube placement. COMPARISONS: 01/20/2025 CT head, 01/19/2025 CT chest/abdomen/pelvis EXAM TIME:01/21/2025 2:23 PM EXAM HISTORY: Acute stroke, inability to swallow. TECHNIQUE: Informed consent was obtained prior to the patient arriving in the radiology department.Under fluoroscopic guidance, a Keofeed nasoenteric feeding tube was advanced through the right nare, down the esophagus, through the gastroesophageal junction, into the stomach, and through the pylorus. Air contrast was used to confirm the placement in the duodenum. A nasal bridle was attempted butunable to be secured due to a combination of septal deviation and patient intolerance for the procedure. A nasal coverlet was then placed to secure the Keofed tube. The tube was flushed with a small amount of water to confirm patency after coverlet placement. No immediate complications were noted. The patient left the department in stable condition. Total fluoroscopic time utilized was 4.5 minutes and reference air kerma 82.8 mGy for this procedure. Impression: IMPRESSION: Successful postpyloric Chu fed placement. The attending radiologist was present in the department for all critical portions of the examination, has reviewed the images, and agrees with the resident's interpretation. Dictated By: Gilma Livingston MD on 01/21/2025 2:55 PM The attending radiologist has reviewed the image(s) and agrees with the content of this report. Referred By: ISAK KANG Interpreted By: Gilma Livingston MD, 01/21/2025 2:55 PM USE ECHOCARDIOGRAM [[id number]] Collected: 01/21/25 1029 Updated: 01/21/25 1337 Narrative: Echocardiography Report Pat.Name: ОЛЕГ WATSON Pat.ID: [id number] .Date: 01/21/2025 Refer.MD: [id number] [facility] EWDPROV EWDPROV Exam Time: 10:29:00 AM Study Type:ECHO WITH CARDIAC DOPPLER COMP Height: 71 in Weight: 206 lb BSA: 2.14 m2 Age: 6 1955,69Y Sex: M BP: 128/74 HR: 70 bpm Sonogrphr: Wil Avila RDCS, RVT Pat. Stat.:Inpatient CPT - 4: 06082 Reason for Study:Stroke/TIA Procedures: 2D, M-mode, Doppler, Color Flow, The study quality is technically adequate. Intraveneous saline contrast was used to help determine presence of intracardiac shunting. Race: W ++++++++++++++++++++++++++++++++++++ SUMMARY: ++++++++++++++++++++++++++++++++++++ The left ventricular size is normal. The left ventricular systolic function is normal. The calculated ejection fraction is 63%. The right ventricle size is normal. The right ventricular function is normal. The left atrial volume is normal ( less than 34 ml/M2). Right atrial size is normal. The agitated saline injection showed no clear evidence of shunting into the left atrium, consistent with no patent foramen ovale. Normal aortic root. Pulmonary vein velocity is consistent with normal left atrial pressures. Inferior vena cava shows >50% collapse with respiration consistent with normal right atrial pressure. The aortic valve is trileaflet. Structurally normal mitral valve. Trace mitral regurgitation. There is trace pulmonic regurgitation Structurally normal tricuspid valve. ++++++++++++++++++++++++++++++++++++ FINDINGS: ++++++++++++++++++++++++++++++++++++ LV: The left ventricular size is normal. The left ventricular systolic function is normal. The calculated ejection fraction is 63%. The average E/e' is elevated at >12 and EF > or equal to 50. RV: The right ventricle size is normal. The right ventricular function is normal. LA: The left atrial volume is normal ( less than 34 ml/M2). RA: Right atrial size is normal. IAS: The agitated saline injection showed no clear evidence of shunting into the left atrium, consistent with no patent foramen ovale. AMANDA: No evidence of pericardial effusion. AO: Normal aortic root. PA: Unable to reliably quantitate pulmonary systolic pressure. PVn: Pulmonary vein velocity is consistent with normal left atrial pressures. SVn: Inferior vena cava is normal. Inferior vena cava shows >50% collapse with respiration consistent with normal right atrial pressure. AV: The aortic valve is trileaflet. No evidence of aortic valve stenosis. No evidence of aortic valve regurgitation. MV: Structurally normal mitral valve. Trace mitral regurgitation. No evidence of mitral stenosis. PV: The pulmonic valve is normal There is trace pulmonic regurgitation TV: Structurally normal tricuspid valve. A trace of tricuspid regurgitation. No evidence of tricuspid valve stenosis. ++++++++++++++++++++++++++++++++++++ MEASUREMENTS: ++++++++++++++++++++++++++++++++++++ DOPPLER LVOT LVOTpkPG 7.4 mmHg LVOTmnPG 4.6 mmHg LVOTpkVel 136 cm/s (70-110)* LVOT SV 99 ml LVOT TVI 31.2 cm AV Forward Flow AV TVI 31.8 cm AV pkPG 9 mmHg AV pkVel 150 cm/s (100-170) Area (TVI) 3.11 cm2 (3-5) AV mnVel 118 cm/s Area (Quentin) 2.87 cm2 (3-5)* AV mnPG 6 mmHg MV Forward Flow MV DeTm 135 msec MV pkE 85.9 cm/s (60-130) MV E/A 0.8 MV pkA 104 cm/s PV Forward Flow PV pkVel 69 cm/s (60-90) PV pkPG 2 mmHg Lat E' Lat e 6.31 cm/s Lat E/E' Lat E/e 13.6 Med E' Med e 8.16 cm/s Med E/E' Med E/e 10.5 Aortic Valve Aortic Valve Ar 1.45 Aortic Valve Ve 0.91 AV DI Value 1 EDWIN (VTI) Index Value 1.45 LV Mass 2D Value 117 g LV Mass [id number] Value 54.7 g/m2 2D Left Ventricle LVIDd 3.62 cm (3.6-5.2) LV EF(Bi-Plane) 63 % (63-77) LVPW LVPWd 0.9 cm Ventricular Septum IVSd 1.2 cm Left Atrium LA a-p 2.7 cm (2.8-3.4)* Aorta Ao Rtd 2.7 cm (zsc -0.7) Ao Asc 2.9 cm (zsc 1) LVOT LVOT 2.01 cm Ratios IVS LA Biplane LAVol I BP 15.9 ml/m2 MMODE TA Tricuspid Annul 3.21 cm <Electronic Signature> 01/21/2025 01:37 PM Wil Rogers M.D. CTA NECK [[id number]] Collected: 01/19/252046 Updated: 01/21/251125 Addenda: [address] exam was performed using one or more of the following dose reduction techniques: automated exposure control, adjustment of the mA and/or kV according to patient size, the use of iterative reconstruction technique, use of ALARA (As Low As Reasonably Achievable) and/or use of Image Gently techniques. Referred By: ISAK KANG Interpreted By: Maria G Gilbert MD, 01/21/2025 11:25 AM Signed: 01/21/251125 by Maria G Gilbert MD Narrative: [address] [address] EXAMINATION: CTA Neck Without and With Intravenous Contrast. Axial imaging, with 2-D Coronal and Sagittal Reconstructions and 3-D MIP and 3-D Volume Rendered Reconstructions. 3-D images were obtainedon an independent workstation. 100 mL Isovue-370 was administered intravenously for the post-contrast images. Carotid stenosis evaluation is based on NASCET criteria. INDICATION: Fracture of the odontoid. COMPARISON: None. FINDINGS: Classic 3 vessel aortic arch anatomy. Atherosclerotic calcifications in the aortic arch and into the descending thoracic aorta. The left vertebral artery is dominant. Mild atherosclerotic calcifications and distal left common carotid artery extending into the origin of left external carotid artery and minimally at the origin of the left carotid bulb with difficulty evaluating the degreeof stenosis of the origin of the left external carotid artery but with good opacification of the left external carotid artery distal to the dense calcification at its origin. No hemodynamically significant stenosis or aneurysm of the great vessels, common carotids, or the cervical internal carotid and vertebral arteries. No vascular injury or extravasation is seen. Intracranial right vertebral artery appears to terminate as the right posterior inferior cerebellarartery, a developmental variant. 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 There is also origin of the right posterior cerebral artery from the supraclinoid right internal carotid artery with developmental hypoplasia of the right P1 segment of the basilar tip, also developmental variant. There is severe hypoplasia of the basilar artery proximal to the persistent trigeminal artery. There is severe developmental hypoplasia or less likely atherosclerotic stenosis of the A1 segment of right anterior cerebral artery. The right A2 segment is supplied predominantly from the left anterior cerebral artery via the anterior communicating artery. The left posterior communicating artery is not visualized. Atherosclerotic calcifications are seen in bilateral distal intracranial internal carotid arteries with less than 50% stenosis. There is an ununited comminuted fracture of the base of the odontoid with 3 to 4 mm anterior displacement of the odontoid with respect to the body of C2 with diastases on the fracture line with adjacent mildly displaced fracture fragments. There is widening of the interspinous distance at C1-C2. Novascular injury or extravasation is seen. There is rightward curvature of cervical spine with preservation of cervical lordosis. No suspicious neck mass or abnormal enhancement. No pathologic lymphadenopathy. No acute osseous abnormality. There is generalized age-appropriate atrophy with [id number] nonspecific patchy hypodensity in the periventricular and deep cerebral white matter in the pa rtially included bilateral deep cerebral white matter, likely nonspecific chronic white matter microvascular disease. Please refer to the CT chest exam of same date regarding the intrathoracic findings. Impression: IMPRESSION: 1. Ununited comminuted fracture of the base of the odontoid with 3 to 4 mm anterior displacement ofthe odontoid with respect to the body of C2 with diastases on the fracture line with adjacent mildly displaced fracture fragments. There is widening of the interspinous distance at C1-C2. 2. No vascular injury or extravasation. 3. Atherosclerotic calcifications in the aortic arch and distal left common carotid artery extending into the origin of left external carotid artery and minimally at the origin of the left carotid bulb with less than 50% stenosis. No hemodynamically significant stenosis or aneurysm in the cervical internal carotid arteries. 4. 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 5. 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 6. origin of right posterior cerebral artery from the supraclinoid right internal carotid artery with developmental hypoplasia of the right T1 segment of the basilar tip. 7. Severe hypoplasia or less likely atherosclerotic stenosis of the A1 segment of right anterior cerebral artery. The right A2 segment is supplied predominantly from the left anterior cerebral arteryvia the anterior communicating artery. 8. Please see above report for the other findings. Referred By: ISAK KANG Interpreted By: Maria G Gilbert MD, 01/19/2025 8:47 PM MRI CERV SPINE WO CON [[id number]] Collected: 01/21/25704 Updated: 01/21/25715 Narrative: [address] [address] EXAMINATION: MRI OF THE CERVICAL SPINE WITHOUT CONTRAST INDICATION: Concern for cord contusion. COMPARISON: CTA head and neck on 01/20/2025. TECHNIQUE: Multiplanar and multi-sequential MRI examination of the cervical spine was performed without contrast. FINDINGS: Notable imaging artifact limiting this evaluation. There is exaggerated lordosis of the cervical spine, favored to be positional. No evidence of significant spondylolisthesis. There is multilevel minimal intervertebral disc space narrowing and associated endplate degenerative changes. There is a chronic nonunited C2 fracture with fluid in the fracture cleft. Evaluation for cord signal abnormality is limited due to extensive artifact (predominantly due to patient motion). No convincing evidence of a cord contusion is seen. The craniovertebral junction is normal. Individual disk levels are as follows: C2-3: Minimal central protrusion with uncovertebral and facet arthropathy. No significant spinal canal or neural foraminal stenosis. C3-4: Minimal disc osteophyte complex without significant spinal canal or neural foraminal stenosis. C4-5: Mild disc bulge with minimal uncovertebral and facet arthropathy. Mild spinal canal stenosis.Mild bilateral neural foraminal stenoses. C5-6: Mild disc bulge with uncovertebral and facet arthropathy and ligamentous thickening. Mild spinal canal stenosis. Wdax-bx-ymsrcdrm bilateral neural foraminal stenoses. C6-7: Minimal disc bulge with facet arthropathy. No significant spinal canal stenosis. No convincing evidence of significant neural foraminal stenosis though artifact limits accurate characterization. C7-T1: No evidence of significant spinal canal or neural foraminal stenosis. Impression: IMPRESSION: 1. No convincing evidence of cord contusion, however significant artifact (predominantly related topatient motion) significantly limits this evaluation. 2. Chronic nonunited C2 fracture. Ordered By: OBINNA GIBBS Interpreted By: Bryan Vogel MD, 01/21/2025 7:05 AM MRI BRAIN WO CON [[id number]] Collected: 01/20/251812 Updated: 01/20/251826 Narrative: [address] [address] EXAM: MRI BRAIN WO CON DATE: 01/20/2025 COMPARISON: None. Head CT from earlier today. INDICATION: Stroke TECHNIQUE: Noncontrast multiplanar multisequence imaging. Routine priority exam. FINDINGS: There are abnormal diffusion findings consistent with acute strokes. The 2 larger findings are in the posterior left basal ganglia and the adjacent brain between the sylvian fissure and temporal horn. There are 2 smaller subependymal foci of high signal along the lateral side of the left ventricular atrium. Possible additional small acute stroke in the anteromedial left temporal lobe. The inferomedial temporal finding is not well seen on the ADC images. The other abnormalities are lowsignal consistent with the acute strokes. On the gradient images, there is serpiginous and mild focal low signal in the brain adjacent to thesmoothly marginated depression in the calvarium posterior laterally on the right side. Probable hemosiderin deposition. Moderate diffuse volume loss. Normal ventricular size. No midline shift. There is a focal defect inthe mid body of the corpus callosum. This measures about 6 mm and could be an old stroke. With substantial artifact on the FLAIR images, bilateral focal and confluent hyperintensity likely represent small vessel disease. Normal flow voids in the basilar and internal carotid arteries. Impression: IMPRESSION: 1. Small acute left-sided strokes in the left basal ganglia and adjacent temporal lobe. Possible additional stroke in the inferomedial left temporal lobe. 2. Volume loss and probable small vessel disease. 3. Calvarial contour abnormality could be correlated with prior trauma. 4. Preliminary report was sent to Dr Gibbs by [employer] at 1825 hours on 01/20/2025. Referred By: ISAK KANG Interpreted By: Ryan Prasad MD, 01/20/2025 6:13 PM CTA HEAD+NECK [[id number]] Collected: 01/20/25 1233 Updated: 01/20/25 1308 Narrative: [address] [address] Examination: Cervicocerebral CTA. Exam time: 1137 hours. Clinical history: Right-sided weakness. Visual disturbance. Suspected chronic C2 fracture. Comparison: CT neck, 01/19/2025, noncontrast head CT, 01/20/2025. Technique: Thin section spiral axial scans were acquired from the level of the aortic arch to the vertex during the administration of intravenous contrast for evaluation of the carotid and vertebral arteries and their distributions. 3-D MIP sagittal and coronal, rotating 3-D MIP and rotating volumerendered 3-D reconstructions were performed from the data set. A dose lowering technique was used for this procedure, which may include, but is not limited to, dose reduction techniques, automated exposure control, the use of iterative reconstruction and ALARA/Image Gently techniques. Stenosis estimates are made using NASCET criteria. Findings: VASCULAR FINDINGS: There is the typical configuration of the origin of the great vessels from the aortic arch. There is minor atherosclerotic calcification of the aorta and arch vessels. The brachiocephalic and bilateral subclavian and axillary arteries are widely patent. The vertebral arteries arerather diminutive but widely patent bilaterally with slight left dominance. 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 The left vertebral artery continues as the basilar artery which is hypoplastic proximally but patent. 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 The arteries of the [place] are otherwise unremarkable with no aneurysm, vascular malformation or major vessel occlusion identified. The common and internal carotid arteries and carotid bulbs are widely patent bilaterally with only mild disease in the siphons. Dense calcific plaque at the origin of the left external carotid artery precludes reliable assessment although there is no poststenotic dilatation. The external carotid arteries are otherwise widely patent. NONVASCULAR FINDINGS: There is no abnormal intracranial enhancement. The orbits and orbital contents appear unremarkable. The patient is nearly edentulous. 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 There is spondylosis, in keeping with age. Changes from median sternotomy again evident. Incidental azygos lobe is noted. Findings suggesting pulmonary fibrosis again evident. Impression: IMPRESSION: 1. No acute or significant cervicocerebral vascular abnormality identified. 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 See text. 2. 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 3. Additional chronic/nonurgent findings as described. Referred By: ISAK KANG Interpreted By: Atilio Varela MD, 01/20/2025 12:[address] HEAD WO CON [[id number]] Collected: 01/20/25 1218 Updated: 01/20/25 1225 Narrative: [address] [address] Examination: CT of the head without contrast. Exam time: 1135 hours. Clinical history: Right-sided weakness. Visual disturbance. History of diabetes and hypertension. Comparison: None Technique: Noncontrast axial scans from skull base to vertex. Sagittal and coronal reconstructions were performed from the data set. A dose lowering technique was used for this procedure, which may include, but is not limited to, dose reduction techniques, automated exposure control, the use of iterative reconstruction and ALARA/Image Gently techniques. Findings: There is prominence of the ventricles, fissures and sulci, greater than anticipated for age, compatible with moderate diffuse cortical atrophy. No shift of midline or mass effect is noted. There is periventricular decreased attenuation, compatible with small vessel disease. No other areasof abnormal x- ray attenuation are identified. In particular, there is no mass, hemorrhage or sign of acute stroke. No extracerebral fluid collections. The mastoid air cells and paranasal sinuses appear clear. Deformity of the right posterior parietal calvarium may be congenital versus remote posttraumatic sequela. Correlation with the history is advised. Impression: IMPRESSION: 1. No acute intracranial process identified. 2. Cortical atrophy and small vessel disease. 3. 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 Clinical correlation required. Referred By: ISAK KANG Interpreted By: Atilio Varela MD, 01/20/2025 12:18 PM Impression: Patient Active Problem List Diagnosis Coronary artery disease involving [place] coronary artery of [place] heart without angina pectoris Hyperlipidemia S/P CABG x 4 Benign essential HTN Microalbuminuria Non-rheumatic mitral regurgitation COVID-19 vaccination declined Uncontrolled type 2 diabetes mellitus with hyperglycemia (CMS/HCC HHS/HCC) Stage 3a chronic kidney disease (CMS/HCC) Closed C2 fracture (CMS/HCC HHS/HCC) Acute embolic stroke (CMS/HCC HHS/HCC) Fall 01/27/2025 10:07 AM Cosigned by Josias Mackay MD at 01/27/2025 3:05 PM CDT * Ludwig Coe MD - 01/27/2025 9:08 AM CDT Endocrinology Progress Note Reason For Follow-up: Uncontrolled type 2 DM in setting of CVA Interval History: Mr. Watson pulled out feeding tube again yesterday. Glucerna 1.2 tube feeding has been resumed at 65 mL/hr continously. This provides approximately 163 g of carbohydrates per day. The patient received 118 units of insulin over the past 24 hours. I reviewed his glycemic profile in detail with him today. He asked where he was this AM. I told him that he was not [facility]. He knew that he was in [place]. He asked this question again then asked if there is an [place] terminal in this airport. 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 Medications Current Facility-Administered Medications Medication Dose Route Frequency Provider Last Rate Last Admin acetaminophen (TYLENOL) tablet 650 mg 650 mg Tube Q4H PRN Emiliano Donaldson MD Or acetaminophen (TYLENOL) suppository 650 mg 650 mg Rectal Q4H PRN Emiliano Donaldson MD Or acetaminophen (TYLENOL) 160 MG/5ML solution 650 mg 650 mg Tube Q4H PRN Emiliano Donaldson MD 650 mg at01/25/25 0506 albuterol (PROVENTIL) (2.5 MG/3ML) 0.083% nebulizer solution 2.5 mg 2.5 mg Nebulization BID PRN Naya Gonzalez MD 2.5 mg at 01/26/25 1919 aspirin chewable tablet 81 mg 81 mg Tube Daily Emiliano Donaldson MD 81 mg at 01/27/25 0903 atorvastatin (LIPITOR) tablet 80 mg 80 mg Tube Nightly at bedtime Emiliano Donaldson MD 80 mg at 01/26/25 215 atropine 1 % ophthalmic solution 1 drop 1 drop Sublingual TID PRN Naya Gonzalez MD [START ON 01/28/2025] barium sulfate (E-Z-PAQUE) 96 % suspension 176 g 176 g Oral Once Jluisrex Blum MD furosemide (LASIX) tablet 40 mg 40 mg Oral Daily Naya Gonzalez MD 40 mg at 01/27/25 09 heparin (porcine) injection 5,000 Units 5,000 Units Subcutaneous 2 times per day Naya Gonzalez MD 5,000 Units at 01/27/25 0903 hydrALAZINE (APRESOLINE) injection 10 mg 10 mg Intravenous Q6H PRN DONNIE Cruz 10 mg at 01/24/25 0414 HYDROcodone-acetaminophen (NORCO) 5-325 MG tablet 1 tablet 1 tablet Tube Q6H PRN Emiliano Donaldson MD1 tablet at 01/22/25 2348 insulin glargine (LANTUS) injection 30 Units 30 Units Subcutaneous Q12H DONNIE Linton 30 Units at 01/27/25 0903 insulin lispro (HUMALOG/ADMELOG) injection 0-16 Units 0-16 Units Subcutaneous Q4H Naya Gonzalez MD 16 Units at 01/27/25 0900 labetalol (TRANDATE) injection 20 mg 20 mg Intravenous Q6H PRN LYNN Garner 20 mg at 01/23/25 1314 lansoprazole (PREVACID SOLUTAB) disintegrating tablet 30 mg 30 mg Tube QAM AC Emiliano Donaldson MD 30mg at 01/27/25 0608 lidocaine 4 % patch 1 patch 1 patch Transdermal Q24H Phylicia Howard NP 1 patch at 01/26/25 2151 lidocaine viscous (XYLOCAINE) 2 % solution 15 mL 15 mL Mouth/Throat Once Naya Gonzalez MD lisinopril (PRINIVIL) tablet 5 mg 5 mg Tube Daily Emiliano Donaldson MD 5 mg at 01/27/25 09 metoprolol tartrate (LOPRESSOR) tablet 25 mg 25 mg Tube BID DONNIE Cruz 25 mg at 903 multi vitamin/minerals (THERA-M ENHANCED) tablet 1 tablet 1 tablet Tube Daily SALEEM CruzP1 tablet at 01/27/25 0903 naLOXone (NARCAN) injection 0.4 mg 0.4 mg Intravenous PRN Phylicia Howard NP ondansetron (ZOFRAN) injection 4 mg 4 mg Intravenous Q8H PRN Phylicia Howard NP oxyCODONE immediate release (ROXICODONE) tablet 5 mg 5 mg Tube Q6H PRN Emiliano Donaldson MD 5 mg at 01/24/25 0341 protein supplement (PROSOURCE) packet 1 packet 1 packet Feeding Tube Daily Sandra Ray DO 1 packet at 01/27/25 0904 scopolamine (TRANSDERM-SCOP) 1 MG/3DAYS patch 1 patch 1 patch Transdermal Q72H Naya Gonzalez MD1 patch at 01/24/25 1714 senna-docusate (SENOKOT-S) 8.6-50 MG tablet 1 tablet 1 tablet Tube BID Emiliano Donaldson MD 1 tablet at 01/27/25 0903 sodium chloride 7 % nebulizer solution 4 mL 4 mL Nebulization 2 times daily RT Naya Gonzalez MD4 mL at 01/27/25 0845 TF diabetic w/Fiber (GLUCERNA 1.2) liquid 20-65 mL/hr Feeding Tube Continuous Sandra Ray DO65 mL/hr at 01/26/25 0100 65 mL/hr at 01/26/25 0100 vitamin B-1 (THIAMINE) tablet 100 mg 100 mg Tube Daily Sandra Ray DO 100 mg at 01/27/25 0903 No Known Allergies Review of Systems Constitutional: Positive for fatigue. Respiratory: Negative. Cardiovascular: Negative. Endocrine: Reviewed glycemic profile with the patient today. Neurological: Notes weakness of his right arm and leg, but this is less pronounced as compared to hospital presentation per his report. Vitals: 01/27/25 0829 BP: (!) 153/76 Pulse: (!) 105 Resp: Temp: SpO2: 92% Physical Exam Constitutional: Comments: No acute distress. Appears older than stated age. Wearing cervical spine collar. HENT: Nose: Comments: Feeding tube in right naris. Mouth/Throat: Mouth: Mucous membranes are dry. Pharynx: Oropharynx is clear. Eyes: Extraocular Movements: Extraocular movements intact. Pupils: Pupils are equal, round, and reactive to light. Cardiovascular: Rate and Rhythm: Normal rate and regular rhythm. Comments: Occasional ectopic beats noted. Pulmonary: Effort: Pulmonary effort is normal. Comments: Lung bhardwaj diminished to auscultation in both bases. Abdominal: General: Abdomen is flat. Bowel sounds are normal. Palpations: Abdomen is soft. Musculoskeletal: Right lower leg: No edema. Left lower leg: No edema. Skin: General: Skin is warm and dry. Neurological: Mental Status: He is alert. Comments: Able to move all extremities to command. Strength of the right arm and leg less than thatof the left arm and leg. Oriented to person and city. [place] believed [place] was at an airport. Recent Labs Lab 01/26/25 1537 01/26/25 1749 01/26/25201301/26/25 2146 01/26/25 2328 01/27/25 0032 01/27/25 0354 GLUCOSEPOC 237* 215* 233* 234* 204* 184* 124* Assessment and Recommendations Outpatient endocrine provider: Tiffani Sen NP, [facility] in [place] A1c here 12.3% Prescribed home diabetes regimen (noncompliant with program): Metformin 1000 mg with breakfast and supper, glimepiride 2 mg with breakfast, pioglitazone 30 mg daily, Lantus 30 units every morning, Humalog 6 units before meals add 2:100 >200. Uncontrolled DM type 2: Glycemic profile improving. Lantus is 30 units every 12 hours. I am not going to presently increase the patient's scheduled Lantus as he will likely be n.p.o. after midnight in preparation for PEG tube placement on January 28, 2025. Give additional Lantus 15 units as a one-timedose now. Humalog will continue every 4 hours based on correctional scale. Glucerna 1.2 tubefeedingat 65 mL/hr continuously provides 163 g of carbohydrates per 24 hours. Will follow. Medical noncompliance in the outpatient setting: Upon discharge will require ECF. Cerebrovascular disease admitted with left basal ganglia and temporal lobe CVA: Management as per primary service. Patient has not been cleared to swallow by speech therapy. BMI 26: Likely pathologically low given uncontrolled DM type 2 and poor self- care in the outpatientsetting. LUDWIG COE MD * Samantha Arrington RN - 01/27/2025 4:45 AM CDT Problem: Discharge Planning Goal: Knowledge of discharge instructions Outcome: Progressing Problem: Pain control/comfort Goal: Promote pain control/comfort Outcome: Progressing Problem: Skin integrity, Impaired-wound Goal: Absence of new skin breakdown Outcome: Progressing Goal: Evidence of wound healing Outcome: Progressing Problem: Skin integrity, Impaired-pressure injury/ulcer Goal: Absence of new skin breakdown Outcome: Progressing Goal: Evidence of pressure injury/ulcer healing Outcome: Progressing Problem: Skin integrity, at risk Goal: Absence of new skin breakdown Outcome: Progressing Problem: Moisture associated skin impairment Goal: Reduce moisture exposure Outcome: Progressing Goal: Evidence of wound healing Outcome: Progressing Goal: Evidence of pressure injury/ulcer healing Outcome: Progressing Goal: Absence of new skin breakdown Outcome: Progressing Problem: Reduced risk for falls/injury Goal: Reduced Risk for Falls/Injury Outcome: Progressing Goal: Reduced Risk of Confusion (Acute vs Chronic) Outcome: Progressing Goal: Reduced Risk of Symptomatic Depression Outcome: Progressing Goal: Reduced Risk of Altered Elimination Outcome: Progressing Goal: Reduced Risk of Dizziness/Vertigo/Balance Outcome: Progressing Goal: Reduced Risk of Polypharmacy Outcome: Progressing Problem: Pain Goal: Patient's pain/discomfort is manageable Description: Assess and monitor patient's pain using appropriate pain scale. Collaborate with interdisciplinary team and initiate plan and interventions as ordered. Re-assess patient's pain level 30 - 60 minutes after pain management intervention. Outcome: Progressing Problem: Safety Goal: Patient will be injury free during hospitalization Description: Assess and monitor vitals signs, neurological status including level of consciousness and orientation. Assess patient's risk for falls and implement fall prevention plan of care and interventions per hospital policy. Ensure arm band on, uncluttered walking paths in room, adequate room lighting, call light and overbed table within reach, bed in low position, wheels locked, side rails up per policy, and non-skid footwear provided. Outcome: Progressing Problem: Daily Care Goal: Daily care needs are met Description: Assess and monitor ability to perform self care and identify potential discharge needs. Outcome: Progressing Problem: Psychosocial Needs Goal: Demonstrates ability to cope with hospitalization/illness Description: Assess and monitor patients ability to cope with his/her illness. Outcome: Progressing Goal: Collaborate with patient/family/caregiver to identify patient specific goals for this hospitalization Outcome: Progressing Problem: Discharge Barriers Goal: Patient's discharge needs are met Description: Collaborate with interdisciplinary team and initiate plans and interventions as needed. Outcome: Progressing Problem: Aspiration - Risk of Goal: Absence of aspiration Outcome: Progressing Problem: Mobility - Impaired Goal: Able to achieve maximum mobility level Outcome: Progressing Problem: Mood - Altered Goal: Alleviation of anxiety Outcome: Progressing Goal: Decrease in depressive symptoms Outcome: Progressing Problem: THROMBOLYTIC COMPLICATION - RISK OF ANGIOEDEMA AND BLEEDING Goal: Absence of angioedema Outcome: Progressing Goal: Absence of bleeding Outcome: Progressing Problem: Tissue Perfusion - Cerebral, Altered Goal: Absence of continued neurologic deterioration signs and symptoms Outcome: Progressing Problem: Venous Thromboembolism - Risk of Goal: Absence of venous thromboembolism Outcome: Progressing Problem: Verbal Communication - Impaired Goal: Effective communication Outcome: Progressing Goal: Increased social interaction Outcome: Progressing Problem: Discharge Planning Goal: Knowledge of discharge instructions Outcome: Progressing * VERÓNICA Goodman - 01/26/2025 2:15 PM CDT OT Treatment Discharge Recommendation: Inpatient Rehab DME equipment recommendation: none Activity Recommendation for zipper setter chainstitch: up with assist of 2 using nichole Patient is a good candidate for inpatient rehab as he remains motivated and demonstrates the ability to tolerate 3 hours of intense therapy per day. Patient was independent at baseline. In attempt toreturn to prior level of function, patient requires intense inpatient rehab to address following deficits: strength, coordination, proprioception, balance, transfers, ADL performance that impact his independence with self-care participation, mobility/transfers, and overall safety/independence. Due to the acute care setting, 3 hours of therapy is not feasible to be completed daily. 01/26/25 1028 Therapy Visit OT Received On 01/22/25 Reason for admission Pt presents after fall from bed at home. 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 While at hospital, pt found to have acute right sided weakness and blurry vision.MRI demonstrates: small acute left-sided strokes in the left basal ganglia, adjacent temporal lobe,possible additional stroke in the inferomedial left temporal lobe, volume loss and probable small ve ssel disease. ......PMH: Acute myocardial infarction, Ankle fracture, fracture left fibula, Coronary artery disease, Diabetes, DKA, HTN, Eustachian tube dysfunction, HLD, Hx of CABG, Microalbuminuria, Myocardial infarction, Non- rheumatic mitral regurgitation .........Therapy orders: eval and treat.. ..Activity as tolerated, up at jahaira with collar Ordering Provider Phylicia Howard NP Verified Two Patient Identifiers Yes Patient consents to therapy Yes Acute Inpatient OT Time Calculation OT Start Time 1028 OT Stop Time 1058 OT Time Calculation (min) 30 min Precautions Spine Precautions Bending;Lifting;Twisting Neck Brace Applied Yes General Precautions Aspiration;Bed Alarm;Chair Alarm;Fall Risk Instructed on Precautions Yes;Needs reinforcement and education Other c-spine precautions with Kayla Cain at all times, keofed, telemetry, purewick, NPO Prior Function PLOF Comments Patient lives alone in a 1.5 story house, but resides on the main floor only. There are 2-3 steps to enter, no handrail. Bathroom has a tub/shower combo without a seat or grab bar, standard height toilet seat with vanity nearby for support. Patient owns a 2 wh/walker, but typically does not use any assistive devices. He states he is independent with all mobility, ADL's and IADL's, still drives and does errands. He reports no available assistance. Patient reports during the most recent fall he fell attempting to get out ofb bed. He reports another recent fall on the sidewalk lastweek, hitting his chest.........Daughter states that if necessary, her father can stay with her andthe daughter's fiance. They live in a 2 story house, but patient will reside on main floor. There are 4 steps with a handrail to enter. Bathroom is a tub/shower combo with standard toilet and vanity.Daughter works shift stacker as an RN, but her fiance will be home as needed for 17/05 supervision. Subjective Subjective Rn ok'd session. Patient presents in bed with daughter at bedside. Patient reports he wants to get OOB. Patient pleasant and motivated for therapy. Daughter in room reports plan is to livewith her after D/C from rehab and his room is ready for him. Pain Pain Yes Pain Score Did not rate Location neck Activity Tolerance Endurance Quality Good Limiting Factors to Endurance Weakness;Pain;Fatigue;Acute deconditioning Activity Tolerance Comments improved function Cognition Overall Cognitive Status Impaired Arousal/Alertness Appropriate responses to stimuli Attention Span Attends with cues to redirect Memory Decreased short term memory Orientation Level Oriented to situation;Oriented to person Following Commands Follows one step commands with repetition Safety Judgment Decreased awareness of need for assistance Awareness of Errors Assistance required to identify errors made Deficits Decreased awareness of deficits Comments much more alert than last OT treatment Motor Planning Impaired Perseveration Not present Initiation Appears intact ADL Eating/Feeding Assistance MIRELLA Eating/Feeding Deficit NPO Eating/Feeding Comment keofed Grooming Assistance Minimal;Sitting in chair Grooming Deficit Setup;Verbal cueing;Increased time to complete;Wash/dry face;Wash/dry hands Grooming Comment Hand in hand assist to perform using RUE and min assist for cleanliness using his LUE Bed Mobility Supine to Sit Mod assist to right;Total assist Functional Transfers Sit to Stand Mod assist;Assist of 2 Bed to Chair Mod assist;Max assist;Assist of 2 Functional Mobility Patient able to come to full stand and take a few steps at mod/max assist of 2;good effort put forth by patient despite weakness to his right UE and LE. Other (Comment) nichole sling placed under patient in chair for staff to use to return patient back to bed Balance Sitting - Static CGA;Min Assist Sitting - Dynamic Min Assist Standing - Static Mod Assist;Support of both upper extremities;Assist of 2 Persons Standing - Dynamic Mod Assist;Support of both upper extremities;Assist of 2 Persons Other (Comment) Improved sitting balance at EOB and attempts to use his right side to support himself. Modified [place] Score Pre-Morbid (Baseline) Score 0-6 0 Interval Daily Interval Score 0-6 4 Discharge Recommendation OT Recommendation Inpatient rehab Plan OT Treatment/Intervention Self-care training;Therapeutic exercises;Therapeutic activities;Neuromuscular re-education;Patient/family training;Functional activity;Safety Progress Progressing toward goals OT Frequency 6 times/week OT - Next Appointment 01/26/25 If this is the last treatment note, it will serve as the discharge summary Yes End of Session End of Session Safety Chair alarm set/activated;Call light within reach;Family/friend present with patient;Nursing aware of session;Transfer status education (nichole sling under patient for staff to use to return patient back to bed) Education: Primary Learners Name: Олег Watson Primary Language of learner: [place] Patient was educated on transfers ADLs balance bed mobility therapy plan safety. Education was completed one to one verbal hands-on this date. Preference of learning new concepts one to one verbal hands-on Barriers to education this date were fatigue cognition. Response to education this date needs follow up needs assistance. * Naya Gonzalez MD - 01/26/2025 12:59 PM CDT Images from the original note were not included. [employer] Hospitalist Progress note Chief Complain: Acute CVA ASSESSMENT /PLAN: Олег Watson is a 69-year-old male with PMH of uncontrolled type 2 diabetes mellitus, HTN, MA, CABG, and mitral regurgitation presented to ED on 01/19/2025 as a category 3 trauma with ground-level fall. He was found to have chronic C2 fracture, no acute injuries. Stat stroke was called on 01/20/2025nd MRI brain demonstrated left-sided ischemic stroke in the basal ganglia and adjacent temporal lobe. Patient was evaluated by neurovascular team, ortho-spine, and PM&R. He failed bedside swallow and also failed DIRECTOR OF MEDICARE eval. Currently has Keofed with tube feeds, DIRECTOR OF MEDICARE continues to follow for advancing diet versus PEG tube. PT/OT recommending inpatient rehab, referrals have been sent by case management. Hospitalist team was contacted on 01/24/2025 to take over as primary service. . 1 Chronic C2 fracture, ground-level fall 01/19/2025 Admitted by trauma service, transition to hospitalist 01/24/2025 [place] J cervical collar at all times per ortho-spine PT/OT recommending inpatient rehab, referrals pending Pain control Fall precautions Wean oxygen as tolerated No evidence of rhabdomyolysis Outpatient follow-up with Dr. Montanez 2. Acute ischemic stroke, RUE/RLE weakness, dysarthria, dysphagia Left basal ganglia and adjacent temporal lobe small acute strokes on MRI from 01/20/2025 Failed bedside swallow, NPO per DIRECTOR OF MEDICARE, discussed with speech PEG tube okay with family Meds per Mayda, dietitian consulted for tube feeds, appreciate their recommendations -- Daily CBC,BMP, Mg, and Phos Strict I&O Stroke team following, appreciate their recommendations PM&R following, appreciate their recommendations, awaiting improvement in advance diet versus PEG for inpatient rehab Continue ASA and statin Monitor on telemetry Routine neurochecks Routine VS PT/OT recommending inpatient rehab, referrals pending Worsening respiratory secretions added hypertonic saline continue scopolamine patch as needed atropine chest x-ray noted no evidence of consolidation mild to moderate pulmonary congestion noted Patient responded well to Lasix 3. Uncontrolled type II diabetes management per endocrinology Patient's home regimen includes Lantus and lispro, patient reports compliance Most recent HbA1c 12.3% from 01/19/2025 [facility] endocrinology consulted, appreciate their recommendations Accucheck every 4 hours Continue Lantus 12 units at bedtime & lispro per sliding scale until evaluated by endocrinology Hypoglycemia protocol 4. HTN Continue to monitor hypertension with VS every 4 hours Continue lisinopril, metoprolol tartrate 5. Hx MA, CABG, mitral regurgitation Add complexity to case repairer on telemetry Continue aspirin statin beta-jazlyn 6 acute on chronic diastolic HFpEF EF of 63% echo done on 12/25 Chest x-ray with pulmonary congestion Continue Lasix 40 mg daily 7. Increase secretions responding well to hypertonic saline scopolamine patch reevaluate need for scopolamine patch in 2 to 3 days chest x-ray noted congestion continue Lasix Body mass index is 28.73 kg/m??. CODE STATUS: Full code Discussed with daughter and discussed with speech orders for PEG placed PEG will be placed on Wednesday Body mass index is 27.98 kg/m??. DVT Prophylaxis: Continue heparin DC heparin Wednesday night Code Status: Full Code Disposition/Discharge plan: PEG on Wednesday probably couple of days after that I have ordered, reviewed and interpreted all Labs . I have reviewed and interpreted all Imaging . Ihave reviewed,ordered and prescribed all necessary medications. I have reviewed and interpreted allconsultant notes. Case was discussed w/ the patient and/or POA. All questions were answered & concerns addressed. Case was also discussed with case management AND SUPERVISOR EPOXY FABRICATION. NAYA GONZALEZ MD 12:59 PM 01/26/2025 SUBJECTIVE Patient seen and examined. Secretions improving today more awake and alert REVIEW OF SYSTEMS Negative for 12 system except mentioned SUBJECTIVE OBJECTIVE Wt Readings from Last 3 Encounters: 01/26/25 91 kg (200 lb 9.9 oz) 11/01/24 93.4 kg (206 lb) 10/17/24 95.3 kg (210 lb) Temp: 98.6 ??F (37 ??C) BP Readings from Last 3 Encounters: 01/26/25 118/68 01/11/25 (!) 118/93 12/14/24 108/84 Pulse Readings from Last 3 Encounters: 01/26/25 (!) 121 01/11/25 92 12/14/24 96 PHYSICAL EXAMINATION: General Appearance: Moderately built and nourished. Is answering all my questions head: atraumatic,normocephalic. Eyes: Pupils equal and reactive to light. No discharge.no nystagmus. Ears: Normal Tympanic membrane and external ear canal . Throat: Lips, mucosa, and tongue,teeth and gums normal. Neck: Supple, symmetrical, trachea midline, no adenopathy; thyroid: No enlargement/tenderness/nodules; no carotid bruit or JVD Lungs: Clear to auscultation bilaterally, respirations unlabored . No wheeze or rhonchi present. Nochest wall tenderness. Heart: S1 and S2 normal, no murmur, rub or gallop . Abdomen: Soft,non-tender, bowel sounds active all four quadrants, no masses, no organomegaly detected. Extremities: Extremities normal, atraumatic, no cyanosis or edema or clubbing Pulses: 2+ and symmetric all extremities Lymph nodes: Cervical, supraclavicular, and axillary nodes normal Neurologic: CNII-XII intact. Awake LABS: Recent Labs 01/24/25 0705 01/25/25 0144 01/26/25 0156 WBC 10.93* 9.31 7.53 HGB 14.4 13.7 13.3 HCT 42.5 41.5 41.6 MCV 86.2 88.9 90.0 PLT 201 198 198 RBC 4.93 4.67 4.62 Recent Labs 01/24/25 0126 01/25/25 0144 01/26/25 0156 ALT -- -- 22 AST -- -- 27 CO2 26.9 27.5 29.7 CL 100 101 103 GLU 323* 247* 183* K 3.7 3.7 3.7 NA 136 136 139 BUN 16 31* 36* Intake/Output Summary (Last 24 hours) at 01/26/2025 1259 Last data filed at 01/25/2025 1434 Gross per 24 hour Intake -- Output 600 ml Net -600 ml Microbiology Results (last 14 days) No results found for the last 336 hours. Radiology MEDICATIONS Scheduled medications aspirin 81 mg Tube Daily atorvastatin 80 mg Tube Nightly at bedtime insulin glargine 30 Units Subcutaneous Q12H insulin lispro 0-16 Units Subcutaneous Q4H lansoprazole 30 mg Tube QAM AC lidocaine 1 patch Transdermal Q24H lidocaine viscous 15 mL Mouth/Throat Once lisinopril 5 mg Tube Daily metoprolol tartrate 25 mg Tube BID multivitamin 1 tablet Tube Daily protein supplement 1 packet Feeding Tube Daily scopolamine 1 patch Transdermal Q72H senna-docusate 1 tablet Tube BID sodium chloride 4 mL Nebulization 2 times daily RT thiamine 100 mg Tube Daily Infusion TF diabetic w/Fiber 65 mL/hr (01/26/25 0100) PRN acetaminophen OR acetaminophen OR acetaminophen, albuterol, atropine, hydrALAZINE, HYDROcodone-acetaminophen, labetalol, naLOXone, ondansetron, oxyCODONE immediate release * Woody Lock, RD - 01/26/2025 12:48 PM CDT CLINICAL DIETITIAN ASSESSMENT NUTRITION ASSESSMENT Past Medical History: Diagnosis Date Acute myocardial infarction ([facility]) Ankle fracture Closed; fracture left fibula Chest pain Closed fracture of distal end of fibula 05/18/2013 Date Onset: 05/18/2013 Coronary artery disease Diabetes ([facility]) Diabetes mellitus, type 2 ([facility]) Diabetic ketoacidosis without coma associated with diabetes mellitus due to underlying condition ([facility]) 03/19/2023 DKA (diabetic ketoacidosis) ([facility]) 03/19/2023 Essential hypertension 07/26/2018 Eustachian tube dysfunction 06/13/2015 Date Onset: 06/13/2015 HLD (hyperlipidemia) Hx of CABG Microalbuminuria Myocardial infarction ([facility]) 07/11/2018 Non-rheumatic mitral regurgitation Noncompliance with medication regimen 12/24/2021 Situational stress 06/13/2015 Interval History (01/26/2025): Keofeed was replaced, and patient is back on continuous feedings. Is receiving feedings as ordered.Patient appears to be tolerating at this time. Patient is to receive PEG placement on Wednesday per physician. Will continue to monitor. Food allergies/intolerances: NKFA per EHR Cultural/Alevism food preferences: None reported in EHR Edema: no edema noted per EHR GI: abdomen WDL, soft, and non-distended with positive bowel sounds per planer chain offbearer; last BM documented on 01/22/25 (soft, no BM x4 days) Chewing/swallowing problems: Yes; see DIRECTOR OF MEDICARE documentation Skin: deep tissue injury on right heel Nutrition-focused physical findings: Unable to complete a physical exam at this time due to RDN working remotely. Labs: Reviewed. No nutrition-related concerns noted at this time. Recent Labs Lab 01/25/25 1832 01/25/25 2138 01/26/25 0033 01/26/25 0343 01/26/25 0515 01/26/25 0914 01/26/25 1126 GLUCOSEPOC 222* 200* 172* 161* 142* 170* 193* Recent Labs Lab 01/21/25 0340 01/22/25 0611 01/24/25 0126 01/24/25 0705 01/25/25 0144 01/26/25 0156 NA 138 < > 136 -- 136 139 K 4.1 < > 3.7 -- 3.7 3.7 MAGNESIUM 1.6 < > -- 2.1 2.5 2.4 PHOS 2.8 < > -- 2.5 3.4 3.7 BUN 14 < > 16 -- 31* 36* CR 1.29 < > 1.14 -- 1.42* 1.33* GFREST 60* < > 70* -- 54* 58* GLU 241* < > 323* -- 247* 183* TRI 137 -- -- -- -- -- < > = values in this interval not displayed. HGB A1C Date Value Ref Range Status 01/19/2025 12.3 (H) <5.7 % Final 05/03/2024 12.8 % Final Meds: Reviewed. No nutrition-related concerns noted at this time. aspirin 81 mg Tube Daily atorvastatin 80 mg Tube Nightly at bedtime insulin glargine 30 Units Subcutaneous Q12H insulin lispro 0-16 Units Subcutaneous Q4H lansoprazole 30 mg Tube QAM AC lidocaine 1 patch Transdermal Q24H lidocaine viscous 15 mL Mouth/Throat Once lisinopril 5 mg Tube Daily metoprolol tartrate 25 mg Tube BID multivitamin 1 tablet Tube Daily protein supplement 1 packet Feeding Tube Daily scopolamine 1 patch Transdermal Q72H senna-docusate 1 tablet Tube BID sodium chloride 4 mL Nebulization 2 times daily RT thiamine 100 mg Tube Daily TF diabetic w/Fiber 65 mL/hr (01/26/25 0100) Anthropometrics: Last 5 Recorded Weights 01/19/25 19101/19/25 19101/26/25 0424 Weight: 93.4 kg (206 lb) 93.4 kg (206 lb) 91 kg (200 lb 9.9 oz) Weight status: Weight has been stable since admission on 01/19/25. Has ranged between 91-93 kg. Height: 180.3 cm Actual Body Weight (ABW): 91 kg [place] Body Weight (IBW): 78 kg (ABW is 117% of IBW) Dosing Weight (DW): 91 kg Body Mass Index (BMI): 28 kg/m?? (WNL for age) Estimated Nutrient Needs: Calories: 7056-0417 kcal/day based on Levy-St Jeor x 1-1.25 Protein: 94-117 gm/day based on 1.2-1.5 gm/kg, using IBW Carbohydrate: 213-266 gm/day based on 50% of total kcal from carbohydrate Fluid: 1500 mL/day based on minimum intake recommendation for older adults Current diet order: Diet NPO effective now Tube Feeding: Glucerna 1.2 NICOLE via Keofeed. Continuous infusion at 65 mL/hr. Protein Modular: 2 packet(s) Prosource daily Free Water Flushes: 50 mL every 4 hours Current diet appropriate? Yes; patient continues to be NPO per DIRECTOR OF MEDICARE recommendations. Current intake sufficient to meet nutritional needs? Yes; TF appears to have been running as ordered. Fluid intake appears adequate for hydration. No TF intake documented in I&Os at this time, unable to assess TF adequacy. Pain affecting PO intake? N/A Nutrition Education: no needs identified at this time NUTRITION DIAGNOSIS Inadequate energy and protein intake related to inability to consume nutrients by mouth as evidenced by patient is currently NPO per DIRECTOR OF MEDICARE recommendations, swallowing difficulty post-stroke. (01/26/25; ongoing) NUTRITION INTERVENTION Nutrition prescription: Tube Feeding: Glucerna 1.2 NICOLE via Keofeed. Continuous infusion at 65 mL/hr. Protein Modular: Administer 1 packet(s) Prosource once daily to assist with meeting estimated protein requirement. Free Water Flushes: 50 mL every 4 hours Nutrient provision from recommended TF (based on 22 hour infusion and dosing weight of 91 kg): NICOLE: 1776 kcal/day (19.5 kcal/kg/day) PRO: 101 gm/day (1.1 gm/kg/day) CHO: 163 gm/day (37% of kcal provided) FLUID: 1541 mL/day free water from TF, free water flushes and free water from modular administration Recommended TF meets 100% estimated kcal needs and 100% estimated protein needs with free water adequate for hydration. Plan: 1. Maintain continuous TF with Glucerna 1.2 NICOLE via Keofeed at 65 mL/hr. 2. Free water flush: 50 mL every 4 hours. 3. Provide 1 packet(s) of Prosource once daily via Keofeed. Administer per environmental air specialist instructions. 4. Provide 100 mg Thiamine and MVI daily x 10 days (today is day 1 of 10). 5. Labs: BMP, Mg and Phos daily. Replete electrolytes as indicated. 6. Weigh patient at least twice weekly. Discharge nutrition plan: Discharge needs assessed. Will provide/update discharge instructions as needed. MONITORING/EVALUATION 01/21/2025 Goals: 1. TF intake will meet at least 90% of goal energy and protein needs based on 72-hour intake average per review of the TF pump and EHR at follow up. -met, continue 01/26/2025 Goals: 1. TF intake will meet at least 90% of goal energy and protein needs based on 72-hour intake average per review of the TF pump and EHR at follow up. WOODY LOCK RD, LDN * Caroline Fajardo RN - 01/26/2025 10:36 AM CDT 01/26/25 1036 Interdisciplinary Group Conference Team Members Present Physician;Case/Care management;Nursing Physician present for group conference Chart review. Patient Current Status Paient current status Inpatient Barriers to Discharge Inpatient Review Barriers to Discharge Inpatient Administering IV meds Other follow up (Comment) No Peg tub placed today, Plans for placement to occur on Wednesday. Poss DG tomorrow. Keofed. Anticipate poss d/c mid-late next week. PT/OT on schedule. Administering IV meds follow up IV Hydralazine and Labetalol. Patient expects to be discharged to Patient expects to be discharged to: Inpatient Rehab Facility (IRF) (Pt and daughter would like for him to d/c to [facility] per PT/OT Recs for In rehab.) 1542: Updates sent to accepting facilities. * Ludwig Coe MD - 01/26/2025 10:33 AM CDTSummary: Endocrinology Endocrinology Progress Note Reason For Follow-up: UncontrolledType 2 DM Interval History: Patient getting keofed replaced this AM. Continue with slurred speech and right sided weakness. Blood glucose improved with more aggressive regimen. Primary Senior Procurement Specialist: Tiffani Sen INSTALLATION SERVICE REPRESENTATIVE, [facility] in [facility] diabetes regimen: Metformin 1000 mg with breakfast and supper, glimepiride 2 mg with breakfast, pioglitazone 30 mg daily, Lantus 30 units every morning, Humalog 6 units before meals add 2:100 >200. Medications Current Facility-Administered Medications Medication Dose Route Frequency Provider Last Rate Last Admin acetaminophen (TYLENOL) tablet 650 mg 650 mg Tube Q4H PRN Emiliano Donaldson MD Or acetaminophen (TYLENOL) suppository 650 mg 650 mg Rectal Q4H PRN Emiliano Donaldson MD Or acetaminophen (TYLENOL) 160 MG/5ML solution 650 mg 650 mg Tube Q4H PRN Emiliano Donaldson MD 650 mg at01/25/25 0506 albuterol (PROVENTIL) (2.5 MG/3ML) 0.083% nebulizer solution 2.5 mg 2.5 mg Nebulization BID PRN Naya Gonzalez MD 2.5 mg at 01/26/25 0808 aspirin chewable tablet 81 mg 81 mg Tube Daily Emiliano Donaldson MD 81 mg at 01/26/25 0938 atorvastatin (LIPITOR) tablet 80 mg 80 mg Tube Nightly at bedtime Emiliano Donaldson MD 80 mg at 01/25/25 2144 atropine 1 % ophthalmic solution 1 drop 1 drop Sublingual TID PRN Naya Gonzalez MD hydrALAZINE (APRESOLINE) injection 10 mg 10 mg Intravenous Q6H PRN DONNIE Cruz 10 mg at 01/24/25 0414 HYDROcodone-acetaminophen (NORCO) 5-325 MG tablet 1 tablet 1 tablet Tube Q6H PRN Emiliano Donaldson MD1 tablet at 01/22/25 2348 insulin glargine (LANTUS) injection 30 Units 30 Units Subcutaneous Q12H DONNIE Linton 30 Units at 01/26/25 0938 insulin lispro (HUMALOG/ADMELOG) injection 0-16 Units 0-16 Units Subcutaneous Q4H Naya Gonzalez MD 10 Units at 01/26/25 0942 labetalol (TRANDATE) injection 20 mg 20 mg Intravenous Q6H PRN LYNN Garner 20 mg at 01/23/25 1314 lansoprazole (PREVACID SOLUTAB) disintegrating tablet 30 mg 30 mg Tube QAM AC Emiliano Donaldson MD 30mg at 01/26/25 0613 lidocaine 4 % patch 1 patch 1 patch Transdermal Q24H Phylicia Howard NP 1 patch at 01/25/25 2159 lidocaine viscous (XYLOCAINE) 2 % solution 15 mL 15 mL Mouth/Throat Once Naya Gonzalez MD lisinopril (PRINIVIL) tablet 5 mg 5 mg Tube Daily Emiliano Donaldson MD 5 mg at 01/25/25 1434 metoprolol tartrate (LOPRESSOR) tablet 25 mg 25 mg Tube BID SALEEM CruzP 25 mg at 145 multi vitamin/minerals (THERA-M ENHANCED) tablet 1 tablet 1 tablet Tube Daily SALEEM CruzP1 tablet at 01/26/25 0938 naLOXone (NARCAN) injection 0.4 mg 0.4 mg Intravenous PRN Phylicia Howard, [place] ondansetron (ZOFRAN) injection 4 mg 4 mg Intravenous Q8H PRN Phylicia Howard, STERLING oxyCODONE immediate release (ROXICODONE) tablet 5 mg 5 mg Tube Q6H PRN Emiliano Donaldson MD 5 mg at 01/24/25 0341 protein supplement (PROSOURCE) packet 1 packet 1 packet Feeding Tube Daily Sandra Ray DO 1 packet at 01/26/25 0939 scopolamine (TRANSDERM-SCOP) 1 MG/3DAYS patch 1 patch 1 patch Transdermal Q72H Naya Gonzalez MD1 patch at 01/24/25 1714 senna-docusate (SENOKOT-S) 8.6-50 MG tablet 1 tablet 1 tablet Tube BID Emiliano Donaldson MD 1 tablet at 01/26/25 0938 sodium chloride 7 % nebulizer solution 4 mL 4 mL Nebulization 2 times daily RT Naya Gonzalez MD 4 mL at 01/26/25 0808 TF diabetic w/Fiber (GLUCERNA 1.2) liquid 20-65 mL/hr Feeding Tube Continuous Sandra Ray DO65 mL/hr at 01/26/25 0100 65 mL/hr at 01/26/25 0100 vitamin B-1 (THIAMINE) tablet 100 mg 100 mg Tube Daily Sandra Ray DO 100 mg at 01/26/25 0938 Review of patient's allergies indicates: No Known Allergies Review of Systems Constitutional: Negative. HENT: Positive for trouble swallowing. Eyes: Negative. Respiratory: Negative. Cardiovascular: Negative. Gastrointestinal: Negative. Endocrine: Negative. Genitourinary: Negative. Musculoskeletal: Negative. Skin: Negative. Allergic/Immunologic: Negative. Neurological: Positive for weakness and numbness. Hematological: Negative. Psychiatric/Behavioral: Negative. Vitals: 01/26/25 0735 BP: (!) 153/82 Pulse: (!) 118 Resp: Temp: 98.6 ??F (37 ??C) SpO2: 92% Physical Exam HENT: Head: Normocephalic. Nose: Nose normal. Mouth/Throat: Mouth: Mucous membranes are moist. Pharynx: Oropharynx is clear. Cardiovascular: Rate and Rhythm: Normal rate and regular rhythm. Pulses: Normal pulses. Pulmonary: Effort: Pulmonary effort is normal. Breath sounds: Normal breath sounds. Musculoskeletal: General: Normal range of motion. Skin: General: Skin is warm and dry. Neurological: Mental Status: He is alert. Motor: Weakness present. Coordination: Coordination abnormal. Recent Labs Lab 01/25/25 1622 01/25/25 1832 01/25/25 2138 01/26/25 0033 01/26/25 0343 01/26/25 0515 01/26/25 0914 GLUCOSEPOC 242* 222* 200* 172* 161* 142* 170* Primary Senior Procurement Specialist: Tiffani Sen INSTALLATION SERVICE REPRESENTATIVE, [facility] in [place] Prescribed home diabetes regimen (noncompliant with program): Metformin 1000 mg with breakfast and supper, glimepiride 2 mg with breakfast, pioglitazone 30 mg daily, Lantus 30 units every morning, Humalog 6 units before meals add 2:100 >200. Assessment Uncontrolled type 2 diabetes mellitus A1c 12.3% Noncompliance with outpatient medication regimen Recommendations Lantus 30 units BID Increase Humalog sliding scale every 4 hours We will continue to adjust dosing based on patient's glycemic trends. Please notify [facility] Endocrinology for blood glucose value less than 80 or greater [id number]. Thank you. [facility] Endocr[facility] Akiko Aranda FITNESS FLOOR ATTENDANT, DNP, VIOLIN TEACHER Attending: Dr. Ludwig Coe Contact via Halo January 26, 2025 * Samantha Arrignton RN - 01/26/2025 5:02 AM CDT Problem: Discharge Planning Goal: Knowledge of discharge instructions Outcome: Progressing Problem: Pain control/comfort Goal: Promote pain control/comfort Outcome: Progressing Problem: Skin integrity, Impaired-wound Goal: Absence of new skin breakdown Outcome: Progressing Goal: Evidence of wound healing Outcome: Progressing Problem: Skin integrity, Impaired-pressure injury/ulcer Goal: Absence of new skin breakdown Outcome: Progressing Goal: Evidence of pressure injury/ulcer healing Outcome: Progressing Problem: Skin integrity, at risk Goal: Absence of new skin breakdown Outcome: Progressing Problem: Moisture associated skin impairment Goal: Reduce moisture exposure Outcome: Progressing Goal: Evidence of wound healing Outcome: Progressing Goal: Evidence of pressure injury/ulcer healing Outcome: Progressing Goal: Absence of new skin breakdown Outcome: Progressing Problem: Reduced risk for falls/injury Goal: Reduced Risk for Falls/Injury Outcome: Progressing Goal: Reduced Risk of Confusion (Acute vs Chronic) Outcome: Progressing Goal: Reduced Risk of Symptomatic Depression Outcome: Progressing Goal: Reduced Risk of Altered Elimination Outcome: Progressing Goal: Reduced Risk of Dizziness/Vertigo/Balance Outcome: Progressing Goal: Reduced Risk of Polypharmacy Outcome: Progressing Problem: Pain Goal: Patient's pain/discomfort is manageable Description: Assess and monitor patient's pain using appropriate pain scale. Collaborate with interdisciplinary team and initiate plan and interventions as ordered. Re-assess patient's pain level 30 - 60 minutes after pain management intervention. Outcome: Progressing Problem: Safety Goal: Patient will be injury free during hospitalization Description: Assess and monitor vitals signs, neurological status including level of consciousness and orientation. Assess patient's risk for falls and implement fall prevention plan of care and interventions per hospital policy. Ensure arm band on, uncluttered walking paths in room, adequate room lighting, call light and overbed table within reach, bed in low position, wheels locked, side rails up per policy, and non-skid footwear provided. Outcome: Progressing Problem: Daily Care Goal: Daily care needs are met Description: Assess and monitor ability to perform self care and identify potential discharge needs. Outcome: Progressing Problem: Psychosocial Needs Goal: Demonstrates ability to cope with hospitalization/illness Description: Assess and monitor patients ability to cope with his/her illness. Outcome: Progressing Goal: Collaborate with patient/family/caregiver to identify patient specific goals for this hospitalization Outcome: Progressing Problem: Discharge Barriers Goal: Patient's discharge needs are met Description: Collaborate with interdisciplinary team and initiate plans and interventions as needed. Outcome: Progressing Problem: Aspiration - Risk of Goal: Absence of aspiration Outcome: Progressing Problem: Mobility - Impaired Goal: Able to achieve maximum mobility level Outcome: Progressing Problem: Mood - Altered Goal: Alleviation of anxiety Outcome: Progressing Goal: Decrease in depressive symptoms Outcome: Progressing Problem: THROMBOLYTIC COMPLICATION - RISK OF ANGIOEDEMA AND BLEEDING Goal: Absence of angioedema Outcome: Progressing Goal: Absence of bleeding Outcome: Progressing Problem: Tissue Perfusion - Cerebral, Altered Goal: Absence of continued neurologic deterioration signs and symptoms Outcome: Progressing Problem: Venous Thromboembolism - Risk of Goal: Absence of venous thromboembolism Outcome: Progressing Problem: Verbal Communication - Impaired Goal: Effective communication Outcome: Progressing Goal: Increased social interaction Outcome: Progressing Problem: Discharge Planning Goal: Knowledge of discharge instructions Outcome: Progressing Problem: Restraint Hei-Alp-xaroujd/Non-Self Destructive Behavior Goal: Absence of injury Outcome: Progressing Goal: Release of restraints Outcome: Progressing * Naya Gonzalez MD - 01/25/2025 2:32 PM CDT Images from the original note were not included. [employer] Hospitalist Progress note Chief Complain: Acute CVA ASSESSMENT /PLAN: Олег Watson is a 69-year-old male with PMH of uncontrolled type 2 diabetes mellitus, HTN, MA, CABG, and mitral regurgitation presented to ED on 01/19/2025 as a category 3 trauma with ground-level fall. He was found to have chronic C2 fracture, no acute injuries. Stat stroke was called on 01/20/2025nd MRI brain demonstrated left-sided ischemic stroke in the basal ganglia and adjacent temporal lobe. Patient was evaluated by neurovascular team, ortho-spine, and PM&R. He failed bedside swallow and also failed DIRECTOR OF MEDICARE eval. Currently has Keofed with tube feeds, DIRECTOR OF MEDICARE continues to follow for advancing diet versus PEG tube. PT/OT recommending inpatient rehab, referrals have been sent by case management. Hospitalist team was contacted on 01/24/2025 to take over as primary service. . 1 Chronic C2 fracture, ground-level fall 01/19/2025 Admitted by trauma service, transition to hospitalist 01/24/2025 Kayla Cain cervical collar at all times per ortho-spine PT/OT recommending inpatient rehab, referrals pending Pain control Fall precautions Wean oxygen as tolerated No evidence of rhabdomyolysis Outpatient follow-up with Dr. Montanez 2. Acute ischemic stroke, RUE/RLE weakness, dysarthria, dysphagia Left basal ganglia and adjacent temporal lobe small acute strokes on MRI from 01/20/2025 Failed bedside swallow, NPO per DIRECTOR OF MEDICARE, discussed with speech PEG tube okay with family Meds per Mayda, dietitian consulted for tube feeds, appreciate their recommendations -- Daily CBC,BMP, Mg, and Phos Strict I&O Stroke team following, appreciate their recommendations PM&R following, appreciate their recommendations, awaiting improvement in advance diet versus PEG for inpatient rehab Continue ASA and statin Monitor on telemetry Routine neurochecks Routine VS PT/OT recommending inpatient rehab, referrals pending Worsening respiratory secretions added hypertonic saline continue scopolamine patch as needed atropine chest x-ray noted no evidence of consolidation mild to moderate pulmonary congestion noted will add Lasix 40 mg IV 1 dose 3. Uncontrolled type II diabetes Patient's home regimen includes Lantus and lispro, patient reports compliance Most recent HbA1c 12.3% from 01/19/2025 [facility] endocrinology consulted, appreciate their recommendations Accucheck every 4 hours Continue Lantus 12 units at bedtime & lispro per sliding scale until evaluated by endocrinology Hypoglycemia protocol 4. HTN Continue to monitor hypertension with VS every 4 hours Continue lisinopril, metoprolol tartrate 5. Hx MA, CABG, mitral regurgitation Add complexity to case repairer on telemetry Body mass index is 28.73 kg/m??. CODE STATUS: Full code Discussed with daughter and discussed with speech Body mass index is 28.73 kg/m??. DVT Prophylaxis: Holding for PEG placement Code Status: Full Code Disposition/Discharge plan: I have ordered, reviewed and interpreted all Labs . I have reviewed and interpreted all Imaging . Ihdiandra reviewed,ordered and prescribed all necessary medications. I have reviewed and interpreted allconsultant notes. Case was discussed w/ the patient and/or POA. All questions were answered & concerns addressed. Case was also discussed with case management AND SUPERVISOR [employer]ICATION. NAYA GONZALEZ MD 2:32 PM 01/25/2025 SUBJECTIVE Patient seen and examined. No fever chills increased secretions today REVIEW OF SYSTEMS Negative for 12 system except mentioned SUBJECTIVE OBJECTIVE Wt Readings from Last 3 Encounters: 01/19/25 93.4 kg (206 lb) 11/01/24 93.4 kg (206 lb) 10/17/24 95.3 kg (210 lb) Temp: 97.7 ??F (36.5 ??C) BP Readings from Last 3 Encounters: 01/25/25 (!) 153/94 01/11/25 (!) 118/93 12/14/24 108/84 Pulse Readings from Last 3 Encounters: 01/25/25 (!) 117 01/11/25 92 12/14/24 96 PHYSICAL EXAMINATION: General Appearance: Moderately built and nourished. Is answering all my questions head: atraumatic,normocephalic. Eyes: Pupils equal and reactive to light. No discharge.no nystagmus. Ears: Normal Tympanic membrane and external ear canal . Throat: Lips, mucosa, and tongue,teeth and gums normal. Neck: Supple, symmetrical, trachea midline, no adenopathy; thyroid: No enlargement/tenderness/nodules; no carotid bruit or JVD Lungs: Clear to auscultation bilaterally, respirations unlabored . No wheeze or rhonchi present. Nochest wall tenderness. Heart: S1 and S2 normal, no murmur, rub or gallop . Abdomen: Soft,non-tender, bowel sounds active all four quadrants, no masses, no organomegaly detected. Extremities: Extremities normal, atraumatic, no cyanosis or edema or clubbing Pulses: 2+ and symmetric all extremities Lymph nodes: Cervical, supraclavicular, and axillary nodes normal Neurologic: CNII-XII intact. Awake LABS: Recent Labs 01/23/25 0839 01/24/25 0705 01/25/25 0144 WBC 7.95 10.93* 9.31 HGB 13.9 14.4 13.7 HCT 40.8 42.5 41.5 MCV 85.9 86.2 88.9 PLT 217 201 198 RBC 4.75 4.93 4.67 Recent Labs 01/23/25 0839 01/24/25 0126 01/25/25 0144 CO2 25.4 26.9 27.5 CL 99 100 101 GLU 302* 323* 247* K 3.7 3.7 3.7 NA 134* 136 136 BUN 13 16 31* Intake/Output Summary (Last 24 hours) at 01/25/2025 1432 Last data filed at 01/25/2025 0600 Gross per 24 hour Intake 865 ml Output 900 ml Net -35 ml Microbiology Results (last 14 days) No results found for the last 336 hours. Radiology MEDICATIONS Scheduled medications aspirin 81 mg Tube Daily atorvastatin 80 mg Tube Nightly at bedtime insulin glargine 10 Units Subcutaneous Once insulin glargine 30 Units Subcutaneous Q12H insulin lispro 0-16 Units Subcutaneous Q4H lansoprazole 30 mg Tube QAM AC lidocaine 1 patch Transdermal Q24H lidocaine viscous 15 mL Mouth/Throat Once lisinopril 5 mg Tube Daily metoprolol tartrate 25 mg Tube BID multivitamin 1 tablet Tube Daily protein supplement 1 packet Feeding Tube Daily scopolamine 1 patch Transdermal Q72H senna-docusate 1 tablet Tube BID sodium chloride 4 mL Nebulization 2 times daily RT thiamine 100 mg Tube Daily Infusion TF diabetic w/Fiber 65 mL/hr (01/24/25 1401) PRN acetaminophen OR acetaminophen OR acetaminophen, albuterol, atropine, hydrALAZINE, HYDROcodone-acetaminophen, labetalol, naLOXone, ondansetron, oxyCODONE immediate release * MARIO Dutton - 01/25/2025 1:56 PM CDT Speech Therapy Treatment Note Diet Recommendation: NPO - Strict Recommendations: Consideration of longer term non oral means for nutrition and medications per medical care team andas consistent with goals of care Oral care per protocol + suction available at all times Pulmonary hygiene Continued skilled ST for dysphagia management as well as motor speech treatment Summary Statement: This patient presents with dysphonia, dysarthria, and clinical signs of severe pharyngeal dysphagia. Patient presents with clinical signs of difficulties managing oral secretions and was unable to trigger a pharyngeal swallow despite cueing this date. Unfortunately, this patient has made limited progress with ST and would bene fit from longer term non oral means for nutrition at this time. ST will continue to follow. Of note, MD contacted during session regarding concerns for patient's difficulty managing secretions and inability to trigger a pharyngeal swallow. *Please see attached flowsheet below for objective data: 01/25/25 1300 Therapy Visit DIRECTOR OF MEDICARE Received on 01/20/25 DIRECTOR OF MEDICARE Evaluation Completed on 01/21/25 Subjective Patient seen alert in bed. [place] J collar present and in place. RN present throughout session. Patient with significant difficulty managing secretions. Senior Operations Analyst suctioned patient to the bestof her abilities and cantacted the patient's MD. 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 While at hospital, pt with right sided weakness and blurry vision. MRI demonstrates: small acute left-sided strokes in the left basal ganglia, adjacent temporal lobe, possible additional stroke in the inferomedial left temporal lobe, volume loss and probable small vessel disease. Living situation Home Mental status Alert;Responsive;Cooperative Verified Two Patient Identifiers Yes Patient consents to Therapy Yes Inpatient DIRECTOR OF MEDICARE Time Calculation DIRECTOR OF MEDICARE Start Time 914 DIRECTOR OF MEDICARE Stop Time 934 DIRECTOR OF MEDICARE Time Calculation (min) 20 min Precautions Precautions Aspiration;Neck brace;Stroke protocol;Supplemental oxygen Instructed on Precautions Yes;Needs reinforcement and education;Verbalizes understanding Pain Pain Patient does not demonstrate pain behaviors Bedside Swallow Interventions Sensory stimulation Therapeutic trials comment This patient was seen alert and upright in bed for dysphagia treatment session follow up. Patient with significantly wet vocal quality concerning for difficulty managing secretions. Senior Operations Analyst suctioned patient throughout session. Senior Operations Analyst completed extensive oral care. Senior Operations Analyst removed thick, yellow mucous from the posterior oral cavity. Patient unable to trigger a pharyngeal swallow despite continuous cueing and limited, scant sensory stimulation via thin water on swabs x1.Immediate wet vocal quality and we coughing observed bid writer suctioned patient. Further trials were deferred due to safety concerns. MD contacted due to change in status and concerns for difficulties managing secretions. DIRECTOR OF MEDICARE Recommendations Ongoing Recommendations DIRECTOR OF MEDICARE during hospitalization Previous Diet NPO Recommended Solid Diet NPO Transitional Food Permitted No Recommended Liquid Consistency NPO Recommended Medication Form IV;Feeding tube Understanding of information was judged to be Fair to limited by patient Results/Recommendations discussed with RN, MD, and patient. Attempted to contact daughter by no answer this date. Plan DIRECTOR OF MEDICARE Treatments/Interventions Swallowing treatment DIRECTOR OF MEDICARE Frequency 3 times/week;4 times/week DIRECTOR OF MEDICARE Next Appointment 01/25/25 If this is the last treatment note, it will serve as the discharge summary Yes End of Session End of Session Safety Nursing aware of session;Call light within reach;Bed alarm set/activated * Akiko Aranda, CREDIT AND COLLECTION MANAGER - 01/25/2025 12:16 PM CDTSummary: Endocrinology Endocrinology Progress Note Reason For Follow-up: UncontrolledType 2 DM Interval History: Patient getting keofed replaced this AM. Continue with slurred speech and right sided weakness. Blood glucose remains above 200. Primary Senior Procurement Specialist: Tiffani Sen NP, [facility] in [facility] diabetes regimen: Metformin 1000 mg with breakfast and supper, glimepiride 2 mg with breakfast, pioglitazone 30 mg daily, Lantus 30 units every morning, Humalog 6 units before meals add 2:100 >200. Medications Current Facility-Administered Medications Medication Dose Route Frequency Provider Last Rate Last Admin acetaminophen (TYLENOL) tablet 650 mg 650 mg Tube Q4H PRN Emiliano Donaldson MD Or acetaminophen (TYLENOL) suppository 650 mg 650 mg Rectal Q4H PRN Emiliano Donaldson MD Or acetaminophen (TYLENOL) 160 MG/5ML solution 650 mg 650 mg Tube Q4H PRN Emiliano Donaldson MD 650 mg at01/25/25 0506 aspirin chewable tablet 81 mg 81 mg Tube Daily Emiliano Donaldson MD 81 mg at 01/24/25 1029 atorvastatin (LIPITOR) tablet 80 mg 80 mg Tube Nightly at bedtime Emiliano Donaldson MD 80 mg at 01/24/25 2107 atropine 1 % ophthalmic solution 1 drop 1 drop Sublingual TID PRN Naya Gonzalez MD enoxaparin (LOVENOX) 30 mg/0.3 mL syringe 30 mg 30 mg Subcutaneous Q12H Dennys Darwin Wells, APNP 30 mg at 01/24/252106 hydrALAZINE (APRESOLINE) injection 10 mg 10 mg Intravenous Q6H PRN DONNIE Cruz 10 mg at 01/24/25 0414 HYDROcodone-acetaminophen (NORCO) 5-325 MG tablet 1 tablet 1 tablet Tube Q6H PRN Emiliano Donaldson MD1 tablet at 01/22/25 2348 insulin glargine (LANTUS) injection 16 Units 16 Units Subcutaneous BID Ludwig Coe MD 16 Units at 01/25/25 0946 insulin lispro (HUMALOG/ADMELOG) injection 0-12 Units 0-12 Units Subcutaneous Q4H Ludwig Coe MD 12 Units at 01/25/25 0946 labetalol (TRANDATE) injection 20 mg 20 mg Intravenous Q6H PRN LYNN Garner 20 mg at 01/23/25 1314 lansoprazole (PREVACID SOLUTAB) disintegrating tablet 30 mg 30 mg Tube QAM AC Emiliano Donaldson MD 30mg at 01/25/25 0512 lidocaine 4 % patch 1 patch 1 patch Transdermal Q24H Phylicia Howard NP 1 patch at 01/24/252106 lidocaine viscous (XYLOCAINE) 2 % solution 15 mL 15 mL Mouth/Throat Once Naya Gonzalez MD lisinopril (PRINIVIL) tablet 5 mg 5 mg Tube Daily Emiliano Donaldson MD 5 mg at 01/24/25 1030 metoprolol tartrate (LOPRESSOR) tablet 25 mg 25 mg Tube BID DONNIE Cruz 25 mg at 107 multi vitamin/minerals (THERA-M ENHANCED) tablet 1 tablet 1 tablet Tube Daily SALEEM CruzP1 tablet at 01/24/25 1030 naLOXone (NARCAN) injection 0.4 mg 0.4 mg Intravenous PRN Phylicia Howard NP ondansetron (ZOFRAN) injection 4 mg 4 mg Intravenous Q8H PRN Phylicia Howard NP oxyCODONE immediate release (ROXICODONE) tablet 5 mg 5 mg Tube Q6H PRN Emiliano Donaldson MD 5 mg at 01/24/25 0341 protein supplement (PROSOURCE) packet 1 packet 1 packet Feeding Tube Daily Sandra Ray DO 1 packet at 01/24/25 1030 scopolamine (TRANSDERM-SCOP) 1 MG/3DAYS patch 1 patch 1 patch Transdermal Q72H Naya Gonzalez MD1 patch at 01/24/25 1714 senna-docusate (SENOKOT-S) 8.6-50 MG tablet 1 tablet 1 tablet Tube BID Emiliano Donaldson MD 1 tablet at 01/24/25 2107 TF diabetic w/Fiber (GLUCERNA 1.2) liquid 20-65 mL/hr Feeding Tube Continuous Sandra Ray, DO65 mL/hr at 01/24/25 1401 65 mL/hr at 01/24/25 1401 vitamin B-1 (THIAMINE) tablet 100 mg 100 mg Tube Daily Sandra Ray DO 100 mg at 01/24/25 1029 No Known Allergies Review of Systems Constitutional: Negative. HENT: Positive for trouble swallowing. Eyes: Negative. Respiratory: Negative. Cardiovascular: Negative. Gastrointestinal: Negative. Endocrine: Negative. Genitourinary: Negative. Musculoskeletal: Negative. Skin: Negative. Allergic/Immunologic: Negative. Neurological: Positive for weakness and numbness. Hematological: Negative. Psychiatric/Behavioral: Negative. Vitals: 01/25/25 0738 BP: (!) 152/76 Pulse: (!) 105 Resp: 24 Temp: 98.4 ??F (36.9 ??C) SpO2: 91% Physical Exam HENT: Head: Normocephalic. Nose: Nose normal. Mouth/Throat: Mouth: Mucous membranes are moist. Pharynx: Oropharynx is clear. Cardiovascular: Rate and Rhythm: Normal rate and regular rhythm. Pulses: Normal pulses. Pulmonary: Effort: Pulmonary effort is normal. Breath sounds: Normal breath sounds. Musculoskeletal: General: Normal range of motion. Skin: General: Skin is warm and dry. Neurological: Mental Status: He is alert. Motor: Weakness present. Coordination: Coordination abnormal. Recent Labs Lab 01/24/25 1350 01/24/25 1623 01/24/25 2005 01/24/25 2346 01/25/25 0042 01/25/25 0403 01/25/25 0934 GLUCOSEPOC 293* 256* 274* 238* 277* 235* 262* Assessment Uncontrolled type 2 diabetes mellitus A1c 12.3 Noncompliance with outpatient medication regimen Plan Increase Lantus to 30 units BID Increased Humalog sliding scale every 4 hours We will continue to adjust dosing based on patient's glycemic trends. Please notify [facility] Endocrinology for blood glucose value less than 70 or greater [email or web address]. [facility] Akiko Aranda FITNESS FLOOR ATTENDANT, DNP, VIOLIN TEACHER Attending: Dr. Ludwig Coe Contact via Halo January 25, 2025 Cosigned by Ludwig Coe MD at 01/26/2025 8:08 PM CDT * Ami Zee PTA - 01/25/2025 11:09 AM CDT 01/25/25 1100 Therapy Visit Ordering Provider Phylicia Howard NP Acute Inpatient PT Time Calculation PT Therapy Interruption (min) Medical cancel: Attempted to see pateint at 11:08 this morning. Pt was being wheeled out of the room by patient transporter to go for keofed placement. Will check back as schedule allows. * Alonso Vasquez Jr., MD - 01/25/2025 11:07 AM CDTSummary: PM&R Progress Note SUBJECTIVE CC: CVA, chronic C2 fracture, impaired mobility HISTORY: No family present at bedside for encounter. Increased speech difficulty and right sided weakness yesterday, repeat head CT showed no new pathology. Continues to have similar symptoms today. Participating in therapies, requiring significant assistance. Remains NPO per DIRECTOR OF MEDICARE. ROS: Unable to obtain ROS due to ongoing deficits. OBJECTIVE Current Facility-Administered Medications: acetaminophen (TYLENOL) tablet 650 mg, 650 mg, Tube, Q4H PRN OR acetaminophen (TYLENOL) suppository 650 mg, 650 mg, Rectal, Q4H PRN OR acetaminophen (TYLENOL) 160 MG/5ML solution 650 mg, 650 mg, Tube, Q4H PRN, Emiliano N Enid, MD, 650 mg at 01/25/25 0506 aspirin chewable tablet 81 mg, 81 mg, Tube, Daily, Emiliano Donaldson MD, 81 mg at 01/24/25 1029 atorvastatin (LIPITOR) tablet 80 mg, 80 mg, Tube, Nightly at bedtime, Emiliano Donaldson MD, 80 mg at 01/24/252106 atropine 1 % ophthalmic solution 1 drop, 1 drop, Sublingual, TID PRN, Naya Gonzalez MD enoxaparin (LOVENOX) 30 mg/0.3 mL syringe 30 mg, 30 mg, Subcutaneous, Q12H, 30 mg at 01/24/252106 AND [COMPLETED] Moderate Risk for VTE, , , Once, LYNN Garner hydrALAZINE (APRESOLINE) injection 10 mg, 10 mg, Intravenous, Q6H PRN, Radha Killian, CREDIT AND COLLECTION MANAGER, 10 mgat 01/24/25 0414 HYDROcodone-acetaminophen (NORCO) 5-325 MG tablet 1 tablet, 1 tablet, Tube, Q6H PRN, Emiliano Donaldson MD, 1 tablet at 01/22/25 2348 insulin glargine (LANTUS) injection 16 Units, 16 Units, Subcutaneous, BID, Ludwig Coe MD, 16 Units at 01/25/25 0946 insulin lispro (HUMALOG/ADMELOG) injection 0-12 Units, 0-12 Units, Subcutaneous, Q4H, Ludwig Coe MD, 12 Units at 01/25/25 0946 labetalol (TRANDATE) injection 20 mg, 20 mg, Intravenous, Q6H PRN, LYNN Garner, 20 mg at 01/23/25 1314 lansoprazole (PREVACID SOLUTAB) disintegrating tablet 30 mg, 30 mg, Tube, QAM AC, Emiliano Donaldson MD, 30 mg at 01/25/25 0512 lidocaine 4 % patch 1 patch, 1 patch, Transdermal, Q24H, Phylicia Howard NP, 1 patch at 01/24/252106 lisinopril (PRINIVIL) tablet 5 mg, 5 mg, Tube, Daily, Emiliano Donaldson MD, 5 mg at 01/24/25 1030 metoprolol tartrate (LOPRESSOR) tablet 25 mg, 25 mg, Tube, BID, SALEEM CruzP, 25 mg at 01/24/25 210 multi vitamin/minerals (THERA-M ENHANCED) tablet 1 tablet, 1 tablet, Tube, Daily, DONNIE Cruz, 1 tablet at 01/24/25 1030 naLOXone (NARCAN) injection 0.4 mg, 0.4 mg, Intravenous, PRN, Phylicia Howard, [place] ondansetron (ZOFRAN) injection 4 mg, 4 mg, Intravenous, Q8H PRN, Phylicia Howard, [place] oxyCODONE immediate release (ROXICODONE) tablet 5 mg, 5 mg, Tube, Q6H PRN, Emiliano Donaldson MD, 5 mgat 01/24/25 0341 protein supplement (PROSOURCE) packet 1 packet, 1 packet, Feeding Tube, Daily, Sandra Ray DO, 1 packet at 01/24/25 1030 scopolamine (TRANSDERM-SCOP) 1 MG/3DAYS patch 1 patch, 1 patch, Transdermal, Q72H, Naya Gonzalez MD, 1 patch at 01/24/25 1714 senna-docusate (SENOKOT-S) 8.6-50 MG tablet 1 tablet, 1 tablet, Tube, BID, Emiliano Donaldson MD, 1 tablet at 01/24/252106 TF diabetic w/Fiber (GLUCERNA 1.2) liquid, 20-65 mL/hr, Feeding Tube, Continuous, Sandra Ray DO, Last Rate: 65 mL/hr at 01/24/25 1401, 65 mL/hr at 01/24/25 1401 vitamin B-1 (THIAMINE) tablet 100 mg, 100 mg, Tube, Daily, Sandra Ray DO, 100 mg at 01/24/25 1029 Vitals: 01/25/25 0738 BP: (!) 152/76 Pulse: (!) 105 Resp: 24 Temp: 98.4 ??F (36.9 ??C) SpO2: 91% PHYSICAL EXAM: General: Well nourished, No acute distress Eye: PERRL, EOMI, Normal conjunctiva HENT: Normocephalic, Normal hearing, MMM, Keofeed in place Neck: Supple, C collar in place Lungs: Symmetric thoracic expansion, Non-labored breathing, CTAB, No wheezes or crackles appreciated Heart: Extremities warm and well-perfused, No edema in extremities, RRR, No m/r/g appreciated Abdomen: Soft, Nondistended, Nontender, +BS, No organomegaly Musculoskeletal: Normal passive ROM in bilateral upper and lower extremities; formal strength exam limited by patient's command following, strength grossly WNL in LUE/LLE, right hemiplegia Skin: Skin is warm, dry and pink; No rashes on exposed skin Neurologic: -Dysarthric speech -Mild right facial droop -Facial sensation intact bilaterally -Altered sensation in bilateral feet to light touch, intact in BUE -No clonus; No increase in tone Psychiatric: Cooperative, calm ASSESSMENT AND PLAN ASSESSMENT AND PLAN: Олег Watson is a 69 YO male now admitted to [facility] with right sided weakness, acute ischemic CVA, and chronic C2 fracture. CVA - small acute left-sided strokes in the left basal ganglia and adjacent temporal lobe as well as possible additional stroke in the inferomedial left temporal lobe Right hemiplegia C2 vertebral fracture Impaired mobility Decreased independence with ALDs -Provided extensive counseling on stroke pathology, prognosis, and rehabilitation to patient and family -Reviewed available notes from therapy services, case management, neurology, and the hospitalist -Recommend PT and OT: working on strength, endurance, balance, and techniques to improve safety andindependence with ADLs and mobility -No spasticity or neuropathic pain at present, continue to monitor -C-collar at all times per ortho -Neuro believe 4/2 increased dysarthria and right sided weakness to be related to brain swelling which may have peaked yesterday, updated CT head was without acute change vs previous Dysphagia -Recommend DIRECTOR OF MEDICARE: work on cognition, speech and swallow -Currently NPO on TF via Keofeed -Planning for swallow study in coming days -Will need diet advanced or PEG placed prior to discharge, education provided to patient and family Management of remaining medical issues per primary/consulting services. Dispo -The patient has suffered a significant decline from their usual state of health and level of function and would benefit from an acute rehabilitation program with PT/OT/DIRECTOR OF MEDICARE 3h/d, at least 5d/wk to improve endurance, mobility, activities of daily living, cognition, and swallowing as appropriate. They will also require physiatric oversight to monitor medical conditions, skin/incisions, nutrition, and the rehab program. -Potential barriers to acute rehab: Currently NPO with TF via Keofeed (needs diet advanced or PEG placed), recommend confirmation of level of assistance able to be provided by patient's daughter and her fiance. -I personally discussed the recommendations for further rehabilitation based on their current levelof independence with ADLs and functional mobility. We reviewed the available options for rehabilitation after discharge. The patient and family are agreement with discharge to acute inpatient rehab for further recovery. Patient/family's first choice is [facility] as it is closer to home. Open to [facility] if unable to go to [place]. PM&R will continue to follow peripherally and will re-evaluate as appropriate. Please contact via Halo with any additional questions or concerns. Greater than 50% of this 35 minute encounter was spent in counseling and coordination of care with the patient. Please see above and below for all of the topics that were discussed with the patient. * Caroline Fajardo RN - 01/25/2025 10:53 AM CDT 01/25/25 1053 Interdisciplinary Group Conference Team Members Present Physician;Case/Care management;Nursing Physician present for group conference Chart review. Patient Current Status Paient current status Inpatient Barriers to Discharge Inpatient Review Barriers to Discharge Inpatient Other (Comment) Other follow up (Comment) DIRECTOR OF MEDICARE/PT/OT on sched. Keofed today. Thick sections per bedside nurse. Mitt restraints after Keofed placement to prevent from pulling out due to increased confusion today. On 3LPM O2 per NC. Int Neuro states that on /2 would be a peak day for swelling which could explain increase in symptoms- right sided weakness and slurred speach yesterday. Repeat CT was negative for any new findings. Endo following EP Consult pending. Patient expects to be discharged to Patient expects to be discharged to: Inpatient Rehab Facility (IRF) (PT/OT Recs for Inpt Rehab. [facility] #1 choice following currently. [facility] is second choice, followed by one SNF referral. Continuing to send updates on condition.) 5312: Evelyne from [facility] calling. Once Pt is more stable and feeding source has been determined they will start insurance authorization. They will accept barring any major changes and Pt's ability to participate in Therapy. 1514: Updates sent to accepting SNF and IP Rehab facililty. * Robin Sharma NP - 01/25/2025 8:09 AM CDT Images from the original note were not included. Vascular and Interventional Neurology Inpatient Progress Note Office Олег Watson [phone] Assessment: 1) Acute Ischemic Stroke Олег Watson presented after a fall. He was later found to have right hemiparesis. The etiology ofthe stroke is embolic. CT head on 01/20 showed no hemorrhage. CTA head and neck on 01/20 showed no LVO. No significant carotid stenosis. MRI brain on 01/20 showed a small acute stroke to the left basal ganglia and left temporal lobe (left anterior choroidal territory). Echo on 01/21 showed EF 63%, left atrial volume normal, no PFO. CT Head on 01/24 showed no acute abnormality. 2) Ground-Level Fall 3) C2 Fracture RECOMMENDATIONS/PLAN Continue aspirin 81 mg I consulted EP, Dr Trujillo, to see patient for atrial fibrillation work up He should get a 30 day heart monitor to check for atrial fibrillation. If 30 day heart monitor is negative, he would be a candidate for an implantable loop recorder. SBP goal to < 140. 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 This can be achieved as an outpatient. Discharge planning with SBP in the 140s-150s is acceptable when appropriate. LDL 72. We would recommend using a statin medication to achieve LDL < 70. Takes home atorvastatin 40 mg. Continue this. HgbA1C 12.3. Goal A1C < 7.0. Management per hospitalist/endocrinology. Follow Stroke Order Set, unless otherwise specified Neuro checks per protocol. Please call with any acute neurological changes. Vital Signs per protocol. Telemetry to monitor for occult atrial fibrillation. If present, confirm with 12 lead EKG. SCD's and Lovenox for DVT prophylaxis. PT/OT - inpatient rehab ST - strict NPO Vascular Neurology will follow PRN at this time. Please contact the stroke provider vocational psychologist with any further questions or concerns. Our office will arrange follow up as an outpatient with us. Michael Sharma APRN [facility] Neurology Patient: Олег Watson is being seen for acute ischemic stroke. Since yesterday he is very similar to yesterday. Speech is still garbled and dysarthric. He is still having trouble managing his secretions. He is still wearing a [place] collar. He is still right sided weak. No family at bedside. Vital Signs: Reviewed. Filed Vitals: 01/24/25 2257 01/25/25 0357 01/25/25 0454 01/25/25 0738 BP: 127/67 128/84 (!) 152/76 Pulse: 99 (!) 121 (!) 105 Resp: 24 24 Temp: 99 ??F (37.2 ??C) 100.6 ??F (38.1 ??C) 98.4 ??F (36.9 ??C) TempSrc: Axillary SpO2: 96% 94% 91% Weight: Height: Physical Exam: Constitutional: Well-developed and well-nourished. HEENT: Normocephalic Respiratory: Increased work of breathing Cardiology: Regular rate and rhythm MSK: No edema bilateral lower extremities to visual inspection Skin: Warm and dry. Neurological Exam Mental Status Awake, alert and oriented to person, place and time. Severe dysarthria present. Language is fluent with no aphasia. [place] J collar in place. Speech was dysarthric and hard to understand at times. No aphasia. . Cranial Nerves CN III, IV, : Normal lids and orbits bilaterally. Pupils equal round and reactive to light bilaterally. CN V: Facial sensation is normal. CN VII: Right: There is central facial weakness. Left: There is no facial weakness. CN VIII: Hearing is normal. CN IX, X: Palate elevates symmetrically CN XI: Shoulder shrug strength is normal. CN XII: Tongue midline without atrophy or fasciculations. Motor Normal muscle bulk throughout. Right hemiparesis. Right Left Biceps 3 Brachioradialis 5 Quadriceps 1 5 Sensory Light touch is normal in upper and lower extremities. Labs: Recent Labs Lab 01/23/25 0839 01/24/25 0705 01/25/25 0144 WBC 7.95 10.93* 9.31 RBC 4.75 4.93 4.67 HGB 13.9 14.4 13.7 HCT 40.8 42.5 41.5 MCV 85.9 86.2 88.9 MCH 29.3 29.2 29.3 MCHC 34.1 33.9 33.0 PLT 217 201 198 RDW 12.2 12.6 12.8 MPV 9.5 9.2 9.9 NEUC 6.08 8.75* 7.24 LYMC 0.88 0.78* 0.87 MONOC 0.93 1.32 1.13 EOSC 0.01 0.00 0.00 BASOC 0.02 0.01 0.02 DTYPE AUTOMATED DIFFERENTIAL AUTOMATED DIFFERENTIAL AUTOMATED DIFFERENTIAL , Recent Labs Lab 01/20/25 1124 01/21/25 0340 01/23/25 0839 01/24/25 0126 01/25/25 0144 NA 135* < > 134* 136 136 K 4.2 < > 3.7 3.7 3.7 CL 102 < > 99 100 101 CO2 24.6 < > 25.4 26.9 27.5 AGAP 8.4 < > 9.6 9.1 7.5 BUN 12 < > 13 16 31* CR 1.45* < > 1.16 1.14 1.42* GLU 272* < > 302* 323* 247* CA 9.2 < > 9.2 9.5 9.8 TP 6.6 -- -- -- -- ALB 2.9* -- -- -- -- TBIL 0.3 -- -- -- -- ALKP 87 -- -- -- -- AST 16 -- -- -- -- ALT 19 -- -- -- -- < > = values in this interval not displayed. , Recent Labs Lab 01/20/25 1124 PTT 33.8 INR 1.0 , Recent Labs Lab 01/20/25 1122 01/20/25 1124 TROP -- 9 CPK 121 -- MB <1.0 -- , No results for input(s): PH , PCO2 , PO2 , C2QHITAWZEUI , BICARBWB , BASEDEFICIT , BASEEXCESS in the last 168 hours., and Recent Labs Lab 01/19/25205701/21/25 0340 CHOL -- 137 TRI -- 137 HDL -- 38* LDL -- 72 HGBA1C 12.3* -- Current Facility-Administered Medications: acetaminophen (TYLENOL) tablet 650 mg, 650 mg, Tube, Q4H PRN OR acetaminophen (TYLENOL) suppository 650 mg, 650 mg, Rectal, Q4H PRN OR acetaminophen (TYLENOL) 160 MG/5ML solution 650 mg, 650 mg, Tube, Q4H PRN, Emiliano Donaldson MD, 650 mg at 01/25/25 0506 aspirin chewable tablet 81 mg, 81 mg, Tube, Daily, Emiliano Donaldson MD, 81 mg at 01/24/25 1029 atorvastatin (LIPITOR) tablet 80 mg, 80 mg, Tube, Nightly at bedtime, Emiliano Donaldson MD, 80 mg at 01/24/252106 enoxaparin (LOVENOX) 30 mg/0.3 mL syringe 30 mg, 30 mg, Subcutaneous, Q12H, 30 mg at 01/24/252106 AND [COMPLETED] Moderate Risk for VTE, , , Once, Dennys Downs, APSTERLING hydrALAZINE (APRESOLINE) injection 10 mg, 10 mg, Intravenous, Q6H PRN, Radha Killian, CREDIT AND COLLECTION MANAGER, 10 mgat 01/24/25 0414 HYDROcodone-acetaminophen (NORCO) 5-325 MG tablet 1 tablet, 1 tablet, Tube, Q6H PRN, Emiliano Donaldson MD, 1 tablet at 01/22/25 2348 insulin glargine (LANTUS) injection 16 Units, 16 Units, Subcutaneous, BID, Ludwig Coe MD, 16 Units at 01/24/252109 insulin lispro (HUMALOG/ADMELOG) injection 0-12 Units, 0-12 Units, Subcutaneous, Q4H, Ludwig Coe MD, 10 Units at 01/25/25 0437 labetalol (TRANDATE) injection 20 mg, 20 mg, Intravenous, Q6H PRN, LYNN Garner, 20 mg at 01/23/25 1314 lansoprazole (PREVACID SOLUTAB) disintegrating tablet 30 mg, 30 mg, Tube, QAM AC, Emiliano Donaldson MD, 30 mg at 01/25/25 0512 lidocaine 4 % patch 1 patch, 1 patch, Transdermal, Q24H, Phylicia Howard NP, 1 patch at 01/24/252106 lisinopril (PRINIVIL) tablet 5 mg, 5 mg, Tube, Daily, Emiliano Donaldson MD, 5 mg at 01/24/25 1030 metoprolol tartrate (LOPRESSOR) tablet 25 mg, 25 mg, Tube, BID, DONNIE Cruz, 25 mg at 01/24/252106 multi vitamin/minerals (THERA-M ENHANCED) tablet 1 tablet, 1 tablet, Tube, Daily, DONNIE Cruz, 1 tablet at 01/24/25 1030 naLOXone (NARCAN) injection 0.4 mg, 0.4 mg, Intravenous, PRN, Phylicia Howard NP ondansetron (ZOFRAN) injection 4 mg, 4 mg, Intravenous, Q8H PRN, Phylicia Howard NP oxyCODONE immediate release (ROXICODONE) tablet 5 mg, 5 mg, Tube, Q6H PRN, Emiliano Donaldson MD, 5 mgat 01/24/25 0341 protein supplement (PROSOURCE) packet 1 packet, 1 packet, Feeding Tube, Daily, Sandar Ray DO, 1 packet at 01/24/25 1030 scopolamine (TRANSDERM-SCOP) 1 MG/3DAYS patch 1 patch, 1 patch, Transdermal, Q72H, Naya Gonzalez MD, 1 patch at 01/24/25 1714 senna-docusate (SENOKOT-S) 8.6-50 MG tablet 1 tablet, 1 tablet, Tube, BID, Emiliano Donaldson MD, 1 tablet at 01/24/252106 TF diabetic w/Fiber (GLUCERNA 1.2) liquid, 20-65 mL/hr, Feeding Tube, Continuous, Sandra RayDO, Last Rate: 65 mL/hr at 01/24/25 1401, 65 mL/hr at 01/24/25 1401 vitamin B-1 (THIAMINE) tablet 100 mg, 100 mg, Tube, Daily, Sandra RayDO, 100 mg at 01/24/25 1029 Radiology: XR CHEST PORTABLE [[id number]] Collected: 01/24/252054 Updated: 01/24/252056 Narrative: [address] [address] EXAMINATION: Chest X-Ray 1 View EXAM DATE/TIME: 01/24/2025 8:21 PM REASON FOR EXAM: FEVER/ COUGH COMPARISON: Chest from 05/12/2018 and 06/15/2022. TECHNIQUE: Single upright frontal projection view of the chest was obtained. FINDINGS: There is no focal infiltrate or consolidative change. Heart size is within normal limits for technique. Pulmonary vasculature is within normal limits for technique. There is no large pleural effusion or pneumothorax. ===== Impression: IMPRESSION:===== 1. NO ACUTE CARDIOPULMONARY FINDINGS. Referred By: ISAK KANG Interpreted By: Jad Erazo MD, 01/24/2025 8:[address] HEAD WO CON [[id number]] Collected: 01/24/25 1506 Updated: 01/24/25 1510 Narrative: [address] [address] Examination: CT HEAD WO CON, 01/24/2025 2:49 PM. Technique: Computed tomographic images of the head were obtained without intravenous contrast. Additional coronal and sagittal reformatted images were generated at a separate workstation. A dose lowering technique was used for this procedure, which may include, but is not limited to, dose reductiontechnique, automated exposure control, the use of iterative reconstruction, and ALARA (As Low As Reasonably Achievable) / Image Gently techniques. Clinical history: stroke F/U Comparison: CT head 01/20/2025 Findings: There is no acute intracranial hemorrhage. There is no extra-axial fluid collection. Preserved hightower-white matter differentiation. Mild global cerebral volume loss with ex vacuo dilatation of ventricles and cerebral sulci. Moderate appears chronic calcification the cavernous segments the internal carotid arteries bilaterally. Orbital contents appear normal. Mild mucosal thickening involving the ethmoidal air cells and right maxillary sinus. Mastoid air cells are well aerated. Chronic appearing deformity involving the posterior right parietal calvarium, similar to the prior CT head exam from 01/20/2025 Impression: IMPRESSION: No CT evidence of an acute intracranial abnormality. Ordered By: ROBIN SHARMA Interpreted By: Romulo Bales MD, 01/24/2025 3:06 PM XR FEEDING TUBE PLCMENT [[id number]] Collected: 01/21/25 1455 Updated: 01/22/25 1121 Narrative: [address] [address] EXAM: Nasoenteric tube placement. COMPARISONS: 01/20/2025 CT head, 01/19/2025 CT chest/abdomen/pelvis EXAM TIME:01/21/2025 2:23 PM EXAM HISTORY: Acute stroke, inability to swallow. TECHNIQUE: Informed consent was obtained prior to the patient arriving in the radiology department.Under fluoroscopic guidance, a Keofeed nasoenteric feeding tube was advanced through the right nare, down the esophagus, through the gastroesophageal junction, into the stomach, and through the pylorus. Air contrast was used to confirm the placement in the duodenum. A nasal bridle was attempted butunable to be secured due to a combination of septal deviation and patient intolerance for the procedure. A nasal coverlet was then placed to secure the Keofed tube. The tube was flushed with a small amount of water to confirm patency after coverlet placement. No immediate complications were noted. The patient left the department in stable condition. Total fluoroscopic time utilized was 4.5 minutes and reference air kerma 82.8 mGy for this procedure. Impression: IMPRESSION: Successful postpyloric Chu fed placement. The attending radiologist was present in the department for all critical portions of the examination, has reviewed the images, and agrees with the resident's interpretation. Dictated By: Gilma Livingston MD on 01/21/2025 2:55 PM The attending radiologist has reviewed the image(s) and agrees with the content of this report. Referred By: ISAK KANG Interpreted By: Gilma Livingston MD, 01/21/2025 2:55 PM USE ECHOCARDIOGRAM [[id number]] Collected: 01/21/25 1029 Updated: 01/21/25 1337 Narrative: Echocardiography Report Pat.Name: ОЛЕГ WATSON Pat.ID: [id number] St.Date: 01/21/2025 Refer.: [id number] [facility] EWDPROV EWDPROV Exam Time: 10:29:00 AM Study Type:ECHO WITH CARDIAC DOPPLER COMP Height: 71 in Weight: 206 lb BSA: 2.14 m2 Age: 6 1955,69Y Sex: M BP: 128/74 HR: 70 bpm Sonogrphr: Wil Avila RDCS, RVT Pat. Stat.:Inpatient CPT - 4: 82359 Reason for Study:Stroke/TIA Procedures: 2D, M-mode, Doppler, Color Flow, The study quality is technically adequate. Intraveneous saline contrast was used to help determine presence of intracardiac shunting. Race: W ++++++++++++++++++++++++++++++++++++ SUMMARY: ++++++++++++++++++++++++++++++++++++ The left ventricular size is normal. The left ventricular systolic function is normal. The calculated ejection fraction is 63%. The right ventricle size is normal. The right ventricular function is normal. The left atrial volume is normal ( less than 34 ml/M2). Right atrial size is normal. The agitated saline injection showed no clear evidence of shunting into the left atrium, consistent with no patent foramen ovale. Normal aortic root. Pulmonary vein velocity is consistent with normal left atrial pressures. Inferior vena cava shows >50% collapse with respiration consistent with normal right atrial pressure. The aortic valve is trileaflet. Structurally normal mitral valve. Trace mitral regurgitation. There is trace pulmonic regurgitation Structurally normal tricuspid valve. ++++++++++++++++++++++++++++++++++++ FINDINGS: ++++++++++++++++++++++++++++++++++++ LV: The left ventricular size is normal. The left ventricular systolic function is normal. The calculated ejection fraction is 63%. The average E/e' is elevated at >12 and EF > or equal to 50. RV: The right ventricle size is normal. The right ventricular function is normal. LA: The left atrial volume is normal ( less than 34 ml/M2). RA: Right atrial size is normal. IAS: The agitated saline injection showed no clear evidence of shunting into the left atrium, consistent with no patent foramen ovale. AMANDA: No evidence of pericardial effusion. AO: Normal aortic root. PA: Unable to reliably quantitate pulmonary systolic pressure. PVn: Pulmonary vein velocity is consistent with normal left atrial pressures. SVn: Inferior vena cava is normal. Inferior vena cava shows >50% collapse with respiration consistent with normal right atrial pressure. AV: The aortic valve is trileaflet. No evidence of aortic valve stenosis. No evidence of aortic valve regurgitation. MV: Structurally normal mitral valve. Trace mitral regurgitation. No evidence of mitral stenosis. PV: The pulmonic valve is normal There is trace pulmonic regurgitation TV: Structurally normal tricuspid valve. A trace of tricuspid regurgitation. No evidence of tricuspid valve stenosis. ++++++++++++++++++++++++++++++++++++ MEASUREMENTS: ++++++++++++++++++++++++++++++++++++ DOPPLER LVOT LVOTpkPG 7.4 mmHg LVOTmnPG 4.6 mmHg LVOTpkVel 136 cm/s (70-110)* LVOT SV 99 ml LVOT TVI 31.2 cm AV Forward Flow AV TVI 31.8 cm AV pkPG 9 mmHg AV pkVel 150 cm/s (100-170) Area (TVI) 3.11 cm2 (3-5) AV mnVel 118 cm/s Area (Quentin) 2.87 cm2 (3-5)* AV mnPG 6 mmHg MV Forward Flow MV DeTm 135 msec MV pkE 85.9 cm/s (60-130) MV E/A 0.8 MV pkA 104 cm/s PV Forward Flow PV pkVel 69 cm/s (60-90) PV pkPG 2 mmHg Lat E' Lat e 6.31 cm/s Lat E/E' Lat E/e 13.6 Med E' Med e 8.16 cm/s Med E/E' Med E/e 10.5 Aortic Valve Aortic Valve Ar 1.45 Aortic Valve Ve 0.91 AV DI Value 1 EDWIN (VTI) Index Value 1.45 LV Mass 2D Value 117 g LV Mass [id number] Value 54.7 g/m2 2D Left Ventricle LVIDd 3.62 cm (3.6-5.2) LV EF(Bi-Plane) 63 % (63-77) LVPW LVPWd 0.9 cm Ventricular Septum IVSd 1.2 cm Left Atrium LA a-p 2.7 cm (2.8-3.4)* Aorta Ao Rtd 2.7 cm (zsc -0.7) Ao Asc 2.9 cm (zsc 1) LVOT LVOT 2.01 cm Ratios IVS LA Biplane LAVol I BP 15.9 ml/m2 MMODE TA Tricuspid Annul 3.21 cm <Electronic Signature> 01/21/2025 01:37 PM Wil Rogers M.D. CTA NECK [[id number]] Collected: 01/19/252046 Updated: 01/21/25 112 Addenda: [facility] [address], [place] [address] exam was performed using one or more of the following dose reduction techniques: automated exposure control, adjustment of the mA and/or kV according to patient size, the use of iterative reconstruction technique, use of ALARA (As Low As Reasonably Achievable) and/or use of Image Gently techniques. Referred By: ISAK KANG Interpreted By: Maria G Gilbert MD, 01/21/2025 11:25 AM Signed: 01/21/25 1126 by Maria G Gilbert MD Narrative: [address] [address] EXAMINATION: CTA Neck Without and With Intravenous Contrast. Axial imaging, with 2-D Coronal and Sagittal Reconstructions and 3-D MIP and 3-D Volume Rendered Reconstructions. 3-D images were obtainedon an independent workstation. 100 mL Isovue-370 was administered intravenously for the post-contrast images. Carotid stenosis evaluation is based on NASCET criteria. INDICATION: Fracture of the odontoid. COMPARISON: None. FINDINGS: Classic 3 vessel aortic arch anatomy. Atherosclerotic calcifications in the aortic arch and into the descending thoracic aorta. The left vertebral artery is dominant. Mild atherosclerotic calcifications and distal left common carotid artery extending into the origin of left external carotid artery and minimally at the origin of the left carotid bulb with difficulty evaluating the degreeof stenosis of the origin of the left external carotid artery but with good opacification of the left external carotid artery distal to the dense calcification at its origin. No hemodynamically significant stenosis or aneurysm of the great vessels, common carotids, or the cervical internal carotid and vertebral arteries. No vascular injury or extravasation is seen. Intracranial right vertebral artery appears to terminate as the right posterior inferior cerebellarartery, a developmental variant. 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 There is also origin of the right posterior cerebral artery from the supraclinoid right internal carotid artery with developmental hypoplasia of the right P1 segment of the basilar tip, also developmental variant. There is severe hypoplasia of the basilar artery proximal to the persistent trigeminal artery. There is severe developmental hypoplasia or less likely atherosclerotic stenosis of the A1 segment of right anterior cerebral artery. The right A2 segment is supplied predominantly from the left anterior cerebral artery via the anterior communicating artery. The left posterior communicating artery is not visualized. Atherosclerotic calcifications are seen in bilateral distal intracranial internal carotid arteries with less than 50% stenosis. There is an ununited comminuted fracture of the base of the odontoid with 3 to 4 mm anterior displacement of the odontoid with respect to the body of C2 with diastases on the fracture line with adjacent mildly displaced fracture fragments. There is widening of the interspinous distance at C1-C2. Novascular injury or extravasation is seen. There is rightward curvature of cervical spine with preservation of cervical lordosis. No suspicious neck mass or abnormal enhancement. No pathologic lymphadenopathy. No acute osseous abnormality. There is generalized age-appropriate atrophy with [id number] nonspecific patchy hypodensity in the periventricular and deep cerebral white matter in the pa rtially included bilateral deep cerebral white matter, likely nonspecific chronic white matter microvascular disease. Please refer to the CT chest exam of same date regarding the intrathoracic findings. Impression: IMPRESSION: 1. Ununited comminuted fracture of the base of the odontoid with 3 to 4 mm anterior displacement ofthe odontoid with respect to the body of C2 with diastases on the fracture line with adjacent mildly displaced fracture fragments. There is widening of the interspinous distance at C1-C2. 2. No vascular injury or extravasation. 3. Atherosclerotic calcifications in the aortic arch and distal left common carotid artery extending into the origin of left external carotid artery and minimally at the origin of the left carotid bulb with less than 50% stenosis. No hemodynamically significant stenosis or aneurysm in the cervical internal carotid arteries. 4. 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 5. 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 6. origin of right posterior cerebral artery from the supraclinoid right internal carotid artery with developmental hypoplasia of the right T1 segment of the basilar tip. 7. Severe hypoplasia or less likely atherosclerotic stenosis of the A1 segment of right anterior cerebral artery. The right A2 segment is supplied predominantly from the left anterior cerebral arteryvia the anterior communicating artery. 8. Please see above report for the other findings. Referred By: ISAK KANG Interpreted By: Maria G Gilbert MD, 01/19/2025 8:47 PM MRI CERV SPINE WO CON [[id number]] Collected: 01/21/25704 Updated: 01/21/25715 Narrative: [facility] [address], [place] [address] EXAMINATION: MRI OF THE CERVICAL SPINE WITHOUT CONTRAST INDICATION: Concern for cord contusion. COMPARISON: CTA head and neck on 01/20/2025. TECHNIQUE: Multiplanar and multi-sequential MRI examination of the cervical spine was performed without contrast. FINDINGS: Notable imaging artifact limiting this evaluation. There is exaggerated lordosis of the cervical spine, favored to be positional. No evidence of significant spondylolisthesis. There is multilevel minimal intervertebral disc space narrowing and associated endplate degenerative changes. There is a chronic nonunited C2 fracture with fluid in the fracture cleft. Evaluation for cord signal abnormality is limited due to extensive artifact (predominantly due to patient motion). No convincing evidence of a cord contusion is seen. The craniovertebral junction is normal. Individual disk levels are as follows: C2-3: Minimal central protrusion with uncovertebral and facet arthropathy. No significant spinal canal or neural foraminal stenosis. C3-4: Minimal disc osteophyte complex without significant spinal canal or neural foraminal stenosis. C4-5: Mild disc bulge with minimal uncovertebral and facet arthropathy. Mild spinal canal stenosis.Mild bilateral neural foraminal stenoses. C5-6: Mild disc bulge with uncovertebral and facet arthropathy and ligamentous thickening. Mild spinal canal stenosis. [id number] bilateral neural foraminal stenoses. C6-7: Minimal disc bulge with facet arthropathy. No significant spinal canal stenosis. No convincing evidence of significant neural foraminal stenosis though artifact limits accurate characterization. C7-T1: No evidence of significant spinal canal or neural foraminal stenosis. Impression: IMPRESSION: 1. No convincing evidence of cord contusion, however significant artifact (predominantly related topatient motion) significantly limits this evaluation. 2. Chronic nonunited C2 fracture. Ordered By: OBINNA GIBBS Interpreted By: Bryan Vogel MD, 01/21/2025 7:05 AM MRI BRAIN WO CON [[id number]] Collected: 01/20/251812 Updated: 01/20/251826 Narrative: [facility] [address], [place] [address] EXAM: MRI BRAIN WO CON DATE: 01/20/2025 COMPARISON: None. Head CT from earlier today. INDICATION: Stroke TECHNIQUE: Noncontrast multiplanar multisequence imaging. Routine priority exam. FINDINGS: There are abnormal diffusion findings consistent with acute strokes. The 2 larger findings are in the posterior left basal ganglia and the adjacent brain between the sylvian fissure and temporal horn. There are 2 smaller subependymal foci of high signal along the lateral side of the left ventricular atrium. Possible additional small acute stroke in the anteromedial left temporal lobe. The inferomedial temporal finding is not well seen on the ADC images. The other abnormalities are lowsignal consistent with the acute strokes. On the gradient images, there is serpiginous and mild focal low signal in the brain adjacent to thesmoothly marginated depression in the calvarium posterior laterally on the right side. Probable hemosiderin deposition. Moderate diffuse volume loss. Normal ventricular size. No midline shift. There is a focal defect inthe mid body of the corpus callosum. This measures about 6 mm and could be an old stroke. With substantial artifact on the FLAIR images, bilateral focal and confluent hyperintensity likely represent small vessel disease. Normal flow voids in the basilar and internal carotid arteries. Impression: IMPRESSION: 1. Small acute left-sided strokes in the left basal ganglia and adjacent temporal lobe. Possible additional stroke in the inferomedial left temporal lobe. 2. Volume loss and probable small vessel disease. 3. Calvarial contour abnormality could be correlated with prior trauma. 4. Preliminary report was sent to Dr Gibbs by [employer] at 1825 hours on 01/20/2025. Referred By: ISAK KANG Interpreted By: Ryan Prasad MD, 01/20/2025 6:13 PM CTA HEAD+NECK [[id number]] Collected: 01/20/25 1233 Updated: 01/20/25 1308 Narrative: [address] [id number] Examination: Cervicocerebral CTA. Exam time: 1137 hours. Clinical history: Right-sided weakness. Visual disturbance. Suspected chronic C2 fracture. Comparison: CT neck, 01/19/2025, noncontrast head CT, 01/20/2025. Technique: Thin section spiral axial scans were acquired from the level of the aortic arch to the vertex during the administration of intravenous contrast for evaluation of the carotid and vertebral arteries and their distributions. 3-D MIP sagittal and coronal, rotating 3-D MIP and rotating volumerendered 3-D reconstructions were performed from the data set. A dose lowering technique was used for this procedure, which may include, but is not limited to, dose reduction techniques, automated exposure control, the use of iterative reconstruction and ALARA/Image Gently techniques. Stenosis estimates are made using NASCET criteria. Findings: VASCULAR FINDINGS: There is the typical configuration of the origin of the great vessels from the aortic arch. There is minor atherosclerotic calcification of the aorta and arch vessels. The brachiocephalic and bilateral subclavian and axillary arteries are widely patent. The vertebral arteries arerather diminutive but widely patent bilaterally with slight left dominance. 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 The left vertebral artery continues as the basilar artery which is hypoplastic proximally but patent. 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 The arteries of the [place] are otherwise unremarkable with no aneurysm, vascular malformation or major vessel occlusion identified. The common and internal carotid arteries and carotid bulbs are widely patent bilaterally with only mild disease in the siphons. Dense calcific plaque at the origin of the left external carotid artery precludes reliable assessment although there is no poststenotic dilatation. The external carotid arteries are otherwise widely patent. NONVASCULAR FINDINGS: There is no abnormal intracranial enhancement. The orbits and orbital contents appear unremarkable. The patient is nearly edentulous. 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 There is spondylosis, in keeping with age. Changes from median sternotomy again evident. Incidental azygos lobe is noted. Findings suggesting pulmonary fibrosis again evident. Impression: IMPRESSION: 1. No acute or significant cervicocerebral vascular abnormality identified. 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 See text. 2. 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 3. Additional chronic/nonurgent findings as described. Referred By: ISAK KANG Interpreted By: Atilio Varela MD, 01/20/2025 12:[address] HEAD WO CON [[id number]] Collected: 01/20/25 1218 Updated: 01/20/25 1225 Narrative: [address] [address] Examination: CT of the head without contrast. Exam time: 1135 hours. Clinical history: Right-sided weakness. Visual disturbance. History of diabetes and hypertension. Comparison: None Technique: Noncontrast axial scans from skull base to vertex. Sagittal and coronal reconstructions were performed from the data set. A dose lowering technique was used for this procedure, which may include, but is not limited to, dose reduction techniques, automated exposure control, the use of iterative reconstruction and ALARA/Image Gently techniques. Findings: There is prominence of the ventricles, fissures and sulci, greater than anticipated for age, compatible with moderate diffuse cortical atrophy. No shift of midline or mass effect is noted. There is periventricular decreased attenuation, compatible with small vessel disease. No other areasof abnormal x- ray attenuation are identified. In particular, there is no mass, hemorrhage or sign of acute stroke. No extracerebral fluid collections. The mastoid air cells and paranasal sinuses appear clear. Deformity of the right posterior parietal calvarium may be congenital versus remote posttraumatic sequela. Correlation with the history is advised. Impression: IMPRESSION: 1. No acute intracranial process identified. 2. Cortical atrophy and small vessel disease. 3. 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 Clinical correlation required. Referred By: ISAK KANG Interpreted By: Atilio Varela MD, 01/20/2025 12:18 PM MRI BRAIN W CON [[id number]] CT STROKE(HEAD WO) [[id number]] CTA HEAD+NECK [[id number]] XR CERV SPINE LAT 1V [[id number]] Collected: 01/20/25415 Updated: 01/20/25420 Narrative: [facility] [address], [place] [address] EXAMINATION: XR CERV SPINE LAT 1V HISTORY: Closed C2 fracture. COMPARISON: CTA neck 01/19/2025. TECHNIQUE: Single lateral view of the cervical spine. FINDINGS: Diffuse osteopenia of the cervical spine. The known C2 fracture seen on comparison CT imaging is not well depicted radiographically. No significant cortical step-off seen involving the C2 vertebrae. Vertebral body heights appear preserved. Multilevel degenerative disc space narrowing. Multilevel facet arthropathy. Prevertebral soft tissues appear normal. Impression: IMPRESSION: The known C2 fracture is not well depicted radiographically. No significant cortical step-off is seen involving the C2 vertebrae. Referred By: ISAK KANG Interpreted By: Alfie Davey MD, 01/20/2025 4:[address] CHEST+ABD+PEL W CON [[id number]] Collected: 01/19/252042 Updated: 01/19/252117 Narrative: [address] [address] CLINICAL INDICATION: 69-year-old male. Reason for examination: Ground-level fall with abdominal pain 01/19/2025 7:58 PM, Kwan Varela L: 100ml [id number] injected into AC, creat 0.8 from [facility]. Trauma CAT 3 transfer - Pt fall and laid on the ground for hours. known dens fx. Images from [facility] on PACS. Scanned by [facility] TECHNIQUE: CT of the chest, abdomen and pelvis was obtained in the axial projection following administration of 100 cc of Isovue 370. Additional delayed images were obtained. through the same levels. Coronal and sagittal reconstructions were provided of both phases of imaging. Intravenous contrast was injected via indwelling IV access site in the right antecubital fossa. No adverse contrast reaction. It should be noted that the dictations for the chest and abdomen and pelvis are contained within this one report. Dose lowering technique was used for this study which may include, but is not limited to, dose reduction techniques, automated exposure control, use of iterative reconstruction and ALARA (As low As Reasonably Achievable)/Image Gently techniques. COMPARISON: For the purposes of this study there is, portable trauma chest radiograph from [facility] at 15:48.. Outside imaging also includes CTA head and neck, CT brain and CT C-spine CT chest without contrast 12/09/2023. FROM [facility] CT chest without contrast 03/20/2023. [facility] CT abdomen and pelvis without contrast [facility] FINDINGS: CHEST: There is no pneumothorax. No pleural effusion or consolidation. No findings of interstitial edema or congestion. No localized nodular opacities that would suggest pulmonary hemorrhage or pulmonary contusion. The lingula and left lower lobe opacity is now better seen to be asymmetric elevation left diaphragm and large epicardial fat pad. There is no CT findings of pneumonia. There is, however mid and lower lung field peripheral tree-in-bud and probably thickened bronchial smith in the lower lungfields without mucous plugging or endobronchial lesion. Probably bronchitis or bronchiolitis this is unchanged since the [address] studies. May be chronic. Redemonstration of stable rounded 13 mm pleural-based nodule lateral basal segment right lower lobe(axial image 65). Interval development of tiny central calcifications may be developing granuloma. There is no mediastinal or hilar or axillary lymphadenopathy. The heart is normal in size. No pericardial effusion. There is no hepatic venous reflux. Heavy right and left and circumflex and LAD [place] coronary artery calcifications which have been over supplied by CABG. VASCULAR IMAGING: All segments of the thoracic and abdominal aorta are normal in caliber. No evidence of traumatic aortic injury. No evidence of aortic dissection. No periaortic fluid in the chest or abdomen. Normal caliber and normal opacification 3 separate great vessels. Normal caliber normal opacification mesenteric arteries and single right and single left with accessory left renal artery. Essentially no calcific or atheromatous disease in the aorta or great vessels mesenteric arteries and renal arteries. No hemodynamically significant narrowing of the inflow. There is long segment scattered plaque of proximal outflow arteries. This is unchanged since 2022. BONE WINDOW IMAGING: The sternum is well healed around median sternotomy wire sutures. No evidence of acute sternal fracture. The lower clavicles are intact. Right and left ribs intact. Old wedge compression deformity superior endplate T10 with 10% loss of height of this vertebral segment and exaggeration due to central spinal stenosis. No retropulsion of the posterior vertebral margin. There is no acute fracture or traumatic malalignment in the thoracolumbar spine pelvis or hips. . MPRESSION: 1.No CT evidence of acute traumatic injury to the thoracic or abdominal aorta 2.No pneumothorax. No congestion or pneumonia or pleural effusion or pneumonia. 3.The opacification of lingula and left lower lobe seen on the trauma chest radiograph is now seen to be superimposition of large left pericardial fat pad and elevated left diaphragm... 4. Chronic findings suggestive of bronchitis or bronchiolitis 5. No acute fracture in the bony thorax 6. No acute fracture in the thoracolumbar spine pelvis or hips 7. Old wedge compression deformity T10 ABDOMEN: The liver, spleen, pancreas adrenal glands and kidneys are grossly normal. Mild gallbladder distention with the fundus of the gallbladder abutting the lateral abdominal wall. No gallbladder wall thickening or pericholecystic fluid or gallstones or sludge. There is no extrahepatic ductal dilatation. There is no evidence of traumatic injury to the organs of the abdomen or pelvis. Both kidneys demonstrate symmetric uptake concentration and clearance of the contrast material. No hydronephrosis. Normal caliber ureters opacify through the abdomen into the bladder. There is no peritoneal or retroperitoneal fluid or hemorrhage. GI: The stomach is unremarkable. The unopacified loops of small bowel and colon are grossly normal in caliber and position. No evidence of traumatic bowel wall injury or bowel wall hematoma. No bowelobstruction. PELVIS: The urinary bladder is filled with contrast. Normal size. Normal bladder wall around the contrast. There is no extravasation of contrast to suggest injury to the renal collecting systems.. No free fluid in the dependent pelvis. The prostate measures 4 cm in diameter. Tiny TURP defect. Impression: IMPRESSION: 1. No CT evidence of acute injury to the solid organs or hollow viscus of the abdomen and pelvis. Referred By: ISAK KANG Interpreted By: Trina Ferrera DO, 01/19/2025 8:43 PM Impression: Patient Active Problem List Diagnosis Coronary artery disease involving [place] coronary artery of [place] heart without angina pectoris Hyperlipidemia S/P CABG x 4 Benign essential HTN Microalbuminuria Non-rheumatic mitral regurgitation COVID-19 vaccination declined Uncontrolled type 2 diabetes mellitus with hyperglycemia (CMS/HCC HHS/HCC) Stage 3a chronic kidney disease (CMS/HCC) Closed C2 fracture (CMS/HCC HHS/HCC) Acute embolic stroke (CMS/HCC HHS/HCC) Fall 01/25/2025 8:09 AM Cosigned by Josias Mackay MD at 01/25/2025 5:51 PM CDT * Lizette Gant RN - 01/25/2025 6:45 AM CDT Problem: Discharge Planning Goal: Knowledge of discharge instructions Outcome: Progressing Problem: Pain control/comfort Goal: Promote pain control/comfort Outcome: Progressing Problem: Skin integrity, Impaired-wound Goal: Absence of new skin breakdown Outcome: Progressing Goal: Evidence of wound healing Outcome: Progressing Problem: Skin integrity, Impaired-pressure injury/ulcer Goal: Absence of new skin breakdown Outcome: Progressing Goal: Evidence of pressure injury/ulcer healing Outcome: Progressing Problem: Skin integrity, at risk Goal: Absence of new skin breakdown Outcome: Progressing Problem: Moisture associated skin impairment Goal: Reduce moisture exposure Outcome: Progressing Goal: Evidence of wound healing Outcome: Progressing Goal: Evidence of pressure injury/ulcer healing Outcome: Progressing Goal: Absence of new skin breakdown Outcome: Progressing Problem: Reduced risk for falls/injury Goal: Reduced Risk for Falls/Injury Outcome: Progressing Goal: Reduced Risk of Confusion (Acute vs Chronic) Outcome: Progressing Goal: Reduced Risk of Symptomatic Depression Outcome: Progressing Goal: Reduced Risk of Altered Elimination Outcome: Progressing Goal: Reduced Risk of Dizziness/Vertigo/Balance Outcome: Progressing Goal: Reduced Risk of Polypharmacy Outcome: Progressing Problem: Pain Goal: Patient's pain/discomfort is manageable Description: Assess and monitor patient's pain using appropriate pain scale. Collaborate with interdisciplinary team and initiate plan and interventions as ordered. Re-assess patient's pain level 30 - 60 minutes after pain management intervention. Outcome: Progressing Problem: Safety Goal: Patient will be injury free during hospitalization Description: Assess and monitor vitals signs, neurological status including level of consciousness and orientation. Assess patient's risk for falls and implement fall prevention plan of care and interventions per hospital policy. Ensure arm band on, uncluttered walking paths in room, adequate room lighting, call light and overbed table within reach, bed in low position, wheels locked, side rails up per policy, and non-skid footwear provided. Outcome: Progressing Problem: Daily Care Goal: Daily care needs are met Description: Assess and monitor ability to perform self care and identify potential discharge needs. Outcome: Progressing Problem: Psychosocial Needs Goal: Demonstrates ability to cope with hospitalization/illness Description: Assess and monitor patients ability to cope with his/her illness. Outcome: Progressing Goal: Collaborate with patient/family/caregiver to identify patient specific goals for this hospitalization Outcome: Progressing Problem: Discharge Barriers Goal: Patient's discharge needs are met Description: Collaborate with interdisciplinary team and initiate plans and interventions as needed. Outcome: Progressing Problem: Aspiration - Risk of Goal: Absence of aspiration Outcome: Progressing Problem: Mobility - Impaired Goal: Able to achieve maximum mobility level Outcome: Progressing Problem: Mood - Altered Goal: Alleviation of anxiety Outcome: Progressing Goal: Decrease in depressive symptoms Outcome: Progressing Problem: THROMBOLYTIC COMPLICATION - RISK OF ANGIOEDEMA AND BLEEDING Goal: Absence of angioedema Outcome: Progressing Goal: Absence of bleeding Outcome: Progressing Problem: Tissue Perfusion - Cerebral, Altered Goal: Absence of continued neurologic deterioration signs and symptoms Outcome: Progressing Problem: Venous Thromboembolism - Risk of Goal: Absence of venous thromboembolism Outcome: Progressing Problem: Verbal Communication - Impaired Goal: Effective communication Outcome: Progressing Goal: Increased social interaction Outcome: Progressing Problem: Discharge Planning Goal: Knowledge of discharge instructions Outcome: Progressing * VERÓNICA Goodman - 01/24/2025 1:42 PM CDT OT Treatment Discharge Recommendation: Inpatient Rehab DME equipment recommendation: none Activity Recommendation for zipper setter chainstitch: up with assist of 2 using nichole 01/24/25 1249 Therapy Visit OT Received On 01/22/25 Reason for admission Pt presents after fall from bed at home. 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 While at hospital, pt found to have acute right sided weakness and blurry vision.MRI demonstrates: small acute left-sided strokes in the left basal ganglia, adjacent temporal lobe,possible additional stroke in the inferomedial left temporal lobe, volume loss and probable small ve ssel disease. ......PMH: Acute myocardial infarction, Ankle fracture, fracture left fibula, Coronary artery disease, Diabetes, DKA, HTN, Eustachian tube dysfunction, HLD, Hx of CABG, Microalbuminuria, Myocardial infarction, Non- rheumatic mitral regurgitation .........Therapy orders: eval and treat.. ..Activity as tolerated, up at jahaira with collar Ordering Provider Phylicia Howard NP Verified Two Patient Identifiers Yes Patient consents to therapy Yes Acute Inpatient OT Time Calculation OT Start Time 09 OT Stop Time 102 OT Time Calculation (min) 38 min Precautions Spine Precautions Bending;Lifting;Twisting Neck Brace Applied Yes General Precautions Aspiration;Bed Alarm;Chair Alarm;Fall Risk Instructed on Precautions Yes;Needs reinforcement and education Other c-spine precautions with Kayla Cain at all times, keofed, telemetry, purewick Prior Function PLOF Comments Patient lives alone in a 1.5 story house, but resides on the main floor only. There are 2-3 steps to enter, no handrail. Bathroom has a tub/shower combo without a seat or grab bar, standard height toilet seat with vanity nearby for support. Patient owns a 2 wh/walker, but typically does not use any assistive devices. He states he is independent with all mobility, ADL's and IADL's, still drives and does errands. He reports no available assistance. Patient reports during the most recent fall he fell attempting to get out ofb bed. He reports another recent fall on the sidewalk lastweek, hitting his chest.........Daughter states that if necessary, her father can stay with her andthe daughter's fiance. They live in a 2 story house, but patient will reside on main floor. There are 4 steps with a handrail to enter. Bathroom is a tub/shower combo with standard toilet and vanity.Daughter works shift stacker as an RN, but her fiance will be home as needed for 17/05 supervision. Subjective Subjective RN okayed session. Pt awake in bed and agreeable to PT session. Trauma PA came in as therapy was starting session and noted his R side appears to be weaker today as compared to when she saw him yesterday. Neurology notified. Pt reports his R leg feels more numb today. Pain Pain Yes Pain Score Did not rate Location RUE with AAROM to elbow, wrist, hand and shoulder with pain reported in neck Interventions Informed RN;Re-positioning Activity Tolerance Endurance Quality Fair Limiting Factors to Endurance Weakness;Pain;Fatigue;Acute deconditioning Activity Tolerance Comments Increased weakness noted to RUE Cognition Overall Cognitive Status Impaired Arousal/Alertness Generalized responses Attention Span Attends with cues to redirect Memory Decreased short term memory Orientation Level Oriented to situation;Oriented to person Following Commands Follows one step commands with repetition Safety Judgment Decreased awareness of need for assistance Awareness of Errors Assistance required to identify errors made Deficits Decreased awareness of deficits Comments somewhat lethargic in the bed, alertness improves once sitting at edge of bed Motor Planning Impaired Perseveration Not present Initiation Cues to initiate tasks ADL Eating/Feeding Assistance MIRELLA Eating/Feeding Deficit NPO Eating/Feeding Comment keofed Grooming Assistance Moderate;Sitting in chair Grooming Deficit Setup;Wash/dry face Grooming Comment patient is left handed dominant and is unable to lift RUE much at all. Trace movement to RUE at this time with Rn and Trauma PA aware Bed Mobility Supine to Sit Max assist to right;Assist of 2 Other (Comment) unable to assist with right side at this time Functional Transfers Sit to Stand Max assist;Assist of 2 Bed to Chair Max assist;Assist of 2 Balance Sitting - Static CGA;Min Assist;Mod Assist;Max Assist Sitting - Dynamic Max Assist Standing - Static Max Assist;Assist of 2 Persons Standing - Dynamic Max Assist;Assist of 2 Persons Other (Comment) Pt sandra sitting at edge of bed x8-9 mins. Initially required maxA, eventually graduated to cga/Oscar after 5-6 mins of proprioceptive techniques and verbal and tactile cueing. Pt slumped forward with poor posture, max tactile cues to squeeze scapula together for more upright posture. Modified [place] Score Pre-Morbid (Baseline) Score 0-6 0 Interval Daily Interval Score 0-6 4 Discharge Recommendation OT Recommendation Inpatient rehab Plan OT Treatment/Intervention Self-care training;Therapeutic exercises;Therapeutic activities;Neuromuscular re-education;Patient/family training;Functional activity;Safety Progress Slow progress, medical status limitations OT Frequency 6 times/week OT - Next Appointment 01/24/25 If this is the last treatment note, it will serve as the discharge summary Yes End of Session End of Session Safety Call light within reach;Chair alarm set/activated;Nursing aware of session;Transfer status education (nichole sling under patient in the chair) Education: Primary Learners Name: Олег Watson Primary Language of learner: [place] Patient was educated on precautions transfers ADLs balance bed mobility therapy plan safety joint protection. Education was completed one to one verbal hands-on this date. Preference of learning new concepts one to one verbal hands-on Barriers to education this date were pain fatigue cognition. Response to education this date needs follow up needs assistance. * Robin Sharma NP - 01/24/2025 12:58 PM CDT Images from the original note were not included. Vascular and Interventional Neurology Inpatient Progress Note Office Олег Watson [id number] [phone] Assessment: 1) Acute Ischemic Stroke Олег Watson presented after a fall. He was later found to have right hemiparesis. The etiology ofthe stroke is embolic. CT head on 01/20 showed no hemorrhage. CTA head and neck on 01/20 showed no LVO. No significant carotid stenosis. MRI brain on 01/20 showed a small acute stroke to the left basal ganglia and left temporal lobe (left anterior choroidal territory). Echo on 01/21 showed EF 63%, left atrial volume normal, no PFO. 2) Ground-Level Fall 3) C2 Fracture RECOMMENDATIONS/PLAN Continue aspirin 81 mg I will come back and check on him tomorrow. Today is day 4, which should be his peak day of swelling. This is most likely the cause of his increased symptoms today. Will repeat CT head to verify no hemorrhage/edema Update: Repeat CT head showed no acute abnormality. Will plan on getting EP consulted tomorrow. He should get a 30 day heart monitor to check for atrial fibrillation. If 30 day heart monitor is negative, he would be a candidate for an implantable loop recorder. SBP goal to < 140. 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 This can be achieved as an outpatient. Discharge planning with SBP in the 140s-150s is acceptable when appropriate. LDL 72. We would recommend using a statin medication to achieve LDL < 70. Takes home atorvastatin 40 mg. Continue this. HgbA1C 12.3. Goal A1C < 7.0. Management per hospitalist. Follow Stroke Order Set, unless otherwise specified Neuro checks per protocol. Please call with any acute neurological changes. Vital Signs per protocol. Telemetry to monitor for occult atrial fibrillation. If present, confirm with 12 lead EKG. SCD's and Lovenox for DVT prophylaxis. PT/OT - inpatient rehab ST - strict NPO [facility] Patient: Олег Watson is being seen for ischemic stroke. Since yesterday he is reportedly having worsening of symptoms. His right sided weakness is much worse. His speech is more garbled and slurredthan prior. We were contacted back to see him after multiple people noticed a decrease in his mental status today. HCT was ordered. Vital Signs: Reviewed. Filed Vitals: 01/24/25 0410 01/24/25 0430 01/24/25 0803 01/24/25 1056 BP: (!) 169/88 (!) 155/80 (!) 155/77 (!) 152/83 Pulse: (!) 110 (!) 122 Resp: 18 20 Temp: 99 ??F (37.2 ??C) 98.9 ??F (37.2 ??C) 97.7 ??F (36.5 ??C) TempSrc: Axillary Oral Axillary SpO2: 93% 92% 95% 96% Weight: Height: Physical Exam: Constitutional: Well-developed and well-nourished. HEENT: Normocephalic Respiratory: Normal effort and no respiratory distress Cardiology: Regular rate and rhythm MSK: No edema bilateral lower extremities to visual inspection Skin: Warm and dry. Neurological Exam Mental Status Awake, alert and oriented to person, place and time. Severe dysarthria present. Language is fluent with no aphasia. [place] J collar in place. Mouth was extremely dry. I gave swabs at bedside. Speech was dysarthric and hard to understand at times. No aphasia. . Cranial Nerves CN III, IV, : Normal lids and orbits bilaterally. Pupils equal round and reactive to light bilaterally. CN V: Facial sensation is normal. CN VII: Right: There is central facial weakness. Left: There is no facial weakness. CN VIII: Hearing is normal. CN IX, X: Palate elevates symmetrically CN XI: Shoulder shrug strength is normal. CN XII: Tongue midline without atrophy or fasciculations. Motor Normal muscle bulk throughout. Right hemiparesis. Right Left Biceps 3 Brachioradialis 5 Quadriceps 1 5 Sensory Light touch is normal in upper and lower extremities. Labs: Recent Labs Lab 01/22/25 0611 01/23/25 0839 01/24/25 0705 WBC 4.67 7.95 10.93* RBC 4.59 4.75 4.93 HGB 13.6 13.9 14.4 HCT 41.1 40.8 42.5 MCV 89.5 85.9 86.2 MCH 29.6 29.3 29.2 MCHC 33.1 34.1 33.9 PLT 179 217 201 RDW 12.3 12.2 12.6 MPV 9.4 9.5 9.2 NEUC 2.70 6.08 8.75* LYMC 1.28 0.88 0.78* MONOC 0.57 0.93 1.32 EOSC 0.09 0.01 0.00 BASOC 0.02 0.02 0.01 DTYPE AUTOMATED DIFFERENTIAL AUTOMATED DIFFERENTIAL AUTOMATED DIFFERENTIAL , Recent Labs Lab 01/20/25 1124 01/21/25 0340 01/22/25 0611 01/23/25 0839 01/24/25 0126 NA 135* < > 136 134* 136 K 4.2 < > 3.9 3.7 3.7 CL 102 < > 104 99 100 CO2 24.6 < > 22.8 25.4 26.9 AGAP 8.4 < > 9.2 9.6 9.1 BUN 12 < > 13 13 16 CR 1.45* < > 1.14 1.16 1.14 GLU 272* < > 234* 302* 323* CA 9.2 < > 9.1 9.2 9.5 TP 6.6 -- -- -- -- ALB 2.9* -- -- -- -- TBIL 0.3 -- -- -- -- ALKP 87 -- -- -- -- AST 16 -- -- -- -- ALT 19 -- -- -- -- < > = values in this interval not displayed. , Recent Labs Lab 01/20/25 1124 PTT 33.8 INR 1.0 , Recent Labs Lab 01/20/25 1122 01/20/25 1124 TROP -- 9 CPK 121 -- MB <1.0 -- , No results for input(s): PH , PCO2 , PO2 , C3UMUNIXONTM , BICARBWB , BASEDEFICIT , BASEEXCESS in the last 168 hours., and Recent Labs Lab 01/19/25205701/21/25 0340 CHOL -- 137 TRI -- 137 HDL -- 38* LDL -- 72 HGBA1C 12.3* -- Current Facility-Administered Medications: acetaminophen (TYLENOL) tablet 650 mg, 650 mg, Tube, Q4H PRN OR acetaminophen (TYLENOL) suppository 650 mg, 650 mg, Rectal, Q4H PRN OR acetaminophen (TYLENOL) 160 MG/5ML solution 650 mg, 650 mg, Tube, Q4H PRN, Emiliano Donaldson MD, 650 mg at 01/23/25 1631 aspirin chewable tablet 81 mg, 81 mg, Tube, Daily, Emiliano Donaldson MD, 81 mg at 01/24/25 102 atorvastatin (LIPITOR) tablet 80 mg, 80 mg, Tube, Nightly at bedtime, Emiliano Donaldson MD, 80 mg at 01/23/252014 enoxaparin (LOVENOX) 30 mg/0.3 mL syringe 30 mg, 30 mg, Subcutaneous, Q12H, 30 mg at 01/24/25 1029 AND [COMPLETED] Moderate Risk for VTE, , , Once, LYNN Garner hydrALAZINE (APRESOLINE) injection 10 mg, 10 mg, Intravenous, Q6H PRN, Radha Killian, CREDIT AND COLLECTION MANAGER, 10 mgat 01/24/25 0414 HYDROcodone-acetaminophen (NORCO) 5-325 MG tablet 1 tablet, 1 tablet, Tube, Q6H PRN, Emiliano Donaldson MD, 1 tablet at 01/22/25 4858 insulin glargine (LANTUS) injection 12 Units, 12 Units, Subcutaneous, BID, Akiko L Rosi, CREDIT AND COLLECTION MANAGER, 12 Units at 01/24/25 1029 insulin lispro (HUMALOG/ADMELOG) injection 0-16 Units, 0-16 Units, Subcutaneous, Q4H, Akiko L Greben, CREDIT AND COLLECTION MANAGER, 15 Units at 01/24/25 1028 labetalol (TRANDATE) injection 20 mg, 20 mg, Intravenous, Q6H PRN, LYNN Garner, 20 mg at 01/23/25 1314 lansoprazole (PREVACID SOLUTAB) disintegrating tablet 30 mg, 30 mg, Tube, QAM AC, Emiliano Donaldson MD, 30 mg at 01/24/25 0615 lidocaine 4 % patch 1 patch, 1 patch, Transdermal, Q24H, Phylicia Howard NP, 1 patch at 01/23/252014 lisinopril (PRINIVIL) tablet 5 mg, 5 mg, Tube, Daily, Emiliano Donaldson MD, 5 mg at 01/24/25 1030 metoprolol tartrate (LOPRESSOR) tablet 25 mg, 25 mg, Tube, BID, DONNIE Cruz, 25 mg at 01/24/25 1029 multi vitamin/minerals (THERA-M ENHANCED) tablet 1 tablet, 1 tablet, Tube, Daily, DONNIE Cruz, 1 tablet at 01/24/25 1030 naLOXone (NARCAN) injection 0.4 mg, 0.4 mg, Intravenous, PRN, Phylicia Howard NP ondansetron (ZOFRAN) injection 4 mg, 4 mg, Intravenous, Q8H PRN, Phylicia Howard NP oxyCODONE immediate release (ROXICODONE) tablet 5 mg, 5 mg, Tube, Q6H PRN, Emiliano Donaldson MD, 5 mgat 01/24/25 0341 protein supplement (PROSOURCE) packet 1 packet, 1 packet, Feeding Tube, Daily, Sandra Ray DO, 1 packet at 01/24/25 1030 senna-docusate (SENOKOT-S) 8.6-50 MG tablet 1 tablet, 1 tablet, Tube, BID, Emiliano Donaldson MD, 1 tablet at 01/24/25 1030 TF diabetic w/Fiber (GLUCERNA 1.2) liquid, 20-65 mL/hr, Feeding Tube, Continuous, Sandra Ray DO, Last Rate: 65 mL/hr at 01/23/25 1616, 65 mL/hr at 01/23/25 1616 vitamin B-1 (THIAMINE) tablet 100 mg, 100 mg, Tube, Daily, Sandra Ray DO, 100 mg at 01/24/25 1029 Radiology: XR FEEDING TUBE PLCMENT [[id number]] Collected: 01/21/25 1455 Updated: 01/22/25 1121 Narrative: [facility] [address], [place] [address] [facility] [address], [place] [address] EXAM: Nasoenteric tube placement. COMPARISONS: 01/20/2025 CT head, 01/19/2025 CT chest/abdomen/pelvis EXAM TIME:01/21/2025 2:23 PM EXAM HISTORY: Acute stroke, inability to swallow. TECHNIQUE: Informed consent was obtained prior to the patient arriving in the radiology department.Under fluoroscopic guidance, a Keofeed nasoenteric feeding tube was advanced through the right nare, down the esophagus, through the gastroesophageal junction, into the stomach, and through the pylorus. Air contrast was used to confirm the placement in the duodenum. A nasal bridle was attempted butunable to be secured due to a combination of septal deviation and patient intolerance for the procedure. A nasal coverlet was then placed to secure the Keofed tube. The tube was flushed with a small amount of water to confirm patency after coverlet placement. No immediate complications were noted. The patient left the department in stable condition. Total fluoroscopic time utilized was 4.5 minutes and reference air kerma 82.8 mGy for this procedure. Impression: IMPRESSION: Successful postpyloric Chu fed placement. The attending radiologist was present in the department for all critical portions of the examination, has reviewed the images, and agrees with the resident's interpretation. Dictated By: Gilma Livingston MD on 01/21/2025 2:55 PM The attending radiologist has reviewed the image(s) and agrees with the content of this report. Referred By: ISAK KANG Interpreted By: Gilma Livingston MD, 01/21/2025 2:55 PM USE ECHOCARDIOGRAM [[id number]] Collected: 01/21/25 102 Updated: 01/21/25 1337 Narrative: Echocardiography Report Pat.Name: ОЛЕГ WATSON Pat.ID: [id number] .Date: 01/21/2025 Refer.MD: [id number] [facility] EWDPROV EWDPROV Exam Time: 10:29:00 AM Study Type:ECHO WITH CARDIAC DOPPLER COMP Height: 71 in Weight: 206 lb BSA: 2.14 m2 Age: 6 1955,69Y Sex: M BP: 128/74 HR: 70 bpm Sonogrphr: Wil Avila RDCS, RVT Pat. Stat.:Inpatient CPT - 4: 01796 Reason for Study:Stroke/TIA Procedures: 2D, M-mode, Doppler, Color Flow, The study quality is technically adequate. Intraveneous saline contrast was used to help determine presence of intracardiac shunting. Race: W ++++++++++++++++++++++++++++++++++++ SUMMARY: ++++++++++++++++++++++++++++++++++++ The left ventricular size is normal. The left ventricular systolic function is normal. The calculated ejection fraction is 63%. The right ventricle size is normal. The right ventricular function is normal. The left atrial volume is normal ( less than 34 ml/M2). Right atrial size is normal. The agitated saline injection showed no clear evidence of shunting into the left atrium, consistent with no patent foramen ovale. Normal aortic root. Pulmonary vein velocity is consistent with normal left atrial pressures. Inferior vena cava shows >50% collapse with respiration consistent with normal right atrial pressure. The aortic valve is trileaflet. Structurally normal mitral valve. Trace mitral regurgitation. There is trace pulmonic regurgitation Structurally normal tricuspid valve. ++++++++++++++++++++++++++++++++++++ FINDINGS: ++++++++++++++++++++++++++++++++++++ LV: The left ventricular size is normal. The left ventricular systolic function is normal. The calculated ejection fraction is 63%. The average E/e' is elevated at >12 and EF > or equal to 50. RV: The right ventricle size is normal. The right ventricular function is normal. LA: The left atrial volume is normal ( less than 34 ml/M2). RA: Right atrial size is normal. IAS: The agitated saline injection showed no clear evidence of shunting into the left atrium, consistent with no patent foramen ovale. AMANDA: No evidence of pericardial effusion. AO: Normal aortic root. PA: Unable to reliably quantitate pulmonary systolic pressure. PVn: Pulmonary vein velocity is consistent with normal left atrial pressures. SVn: Inferior vena cava is normal. Inferior vena cava shows >50% collapse with respiration consistent with normal right atrial pressure. AV: The aortic valve is trileaflet. No evidence of aortic valve stenosis. No evidence of aortic valve regurgitation. MV: Structurally normal mitral valve. Trace mitral regurgitation. No evidence of mitral stenosis. PV: The pulmonic valve is normal There is trace pulmonic regurgitation TV: Structurally normal tricuspid valve. A trace of tricuspid regurgitation. No evidence of tricuspid valve stenosis. ++++++++++++++++++++++++++++++++++++ MEASUREMENTS: ++++++++++++++++++++++++++++++++++++ DOPPLER LVOT LVOTpkPG 7.4 mmHg LVOTmnPG 4.6 mmHg LVOTpkVel 136 cm/s (70-110)* LVOT SV 99 ml LVOT TVI 31.2 cm AV Forward Flow AV TVI 31.8 cm AV pkPG 9 mmHg AV pkVel 150 cm/s (100-170) Area (TVI) 3.11 cm2 (3-5) AV mnVel 118 cm/s Area (Quentin) 2.87 cm2 (3-5)* AV mnPG 6 mmHg MV Forward Flow MV DeTm 135 msec MV pkE 85.9 cm/s (60-130) MV E/A 0.8 MV pkA 104 cm/s PV Forward Flow PV pkVel 69 cm/s (60-90) PV pkPG 2 mmHg Lat E' Lat e 6.31 cm/s Lat E/E' Lat E/e 13.6 Med E' Med e 8.16 cm/s Med E/E' Med E/e 10.5 Aortic Valve Aortic Valve Ar 1.45 Aortic Valve Ve 0.91 AV DI Value 1 EDWIN (VTI) Index Value 1.45 LV Mass 2D Value 117 g LV Mass Erldl1Q Value 54.7 g/m2 2D Left Ventricle LVIDd 3.62 cm (3.6-5.2) LV EF(Bi-Plane) 63 % (63-77) LVPW LVPWd 0.9 cm Ventricular Septum IVSd 1.2 cm Left Atrium LA a-p 2.7 cm (2.8-3.4)* Aorta Ao Rtd 2.7 cm (zsc -0.7) Ao Asc 2.9 cm (zsc 1) LVOT LVOT 2.01 cm Ratios IVS LA Biplane LAVol I BP 15.9 ml/m2 MMODE TA Tricuspid Annul 3.21 cm <Electronic Signature> 01/21/2025 01:37 PM Wil Rogers M.D. CTA NECK [[id number]] Collected: 01/19/252046 Updated: 01/21/251125 Addenda: [address] exam was performed using one or more of the following dose reduction techniques: automated exposure control, adjustment of the mA and/or kV according to patient size, the use of iterative reconstruction technique, use of ALARA (As Low As Reasonably Achievable) and/or use of Image Gently techniques. Referred By: ISAK KANG Interpreted By: Maria G Gilbert MD, 01/21/2025 11:25 AM Signed: 01/21/251125 by Maria G Gilbert MD Narrative: [address] [address] EXAMINATION: CTA Neck Without and With Intravenous Contrast. Axial imaging, with 2-D Coronal and Sagittal Reconstructions and 3-D MIP and 3-D Volume Rendered Reconstructions. 3-D images were obtainedon an independent workstation. 100 mL Isovue-370 was administered intravenously for the post-contrast images. Carotid stenosis evaluation is based on NASCET criteria. INDICATION: Fracture of the odontoid. COMPARISON: None. FINDINGS: Classic 3 vessel aortic arch anatomy. Atherosclerotic calcifications in the aortic arch and into the descending thoracic aorta. The left vertebral artery is dominant. Mild atherosclerotic calcifications and distal left common carotid artery extending into the origin of left external carotid artery and minimally at the origin of the left carotid bulb with difficulty evaluating the degreeof stenosis of the origin of the left external carotid artery but with good opacification of the left external carotid artery distal to the dense calcification at its origin. No hemodynamically significant stenosis or aneurysm of the great vessels, common carotids, or the cervical internal carotid and vertebral arteries. No vascular injury or extravasation is seen. Intracranial right vertebral artery appears to terminate as the right posterior inferior cerebellarartery, a developmental variant. 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 There is also origin of the right posterior cerebral artery from the supraclinoid right internal carotid artery with developmental hypoplasia of the right P1 segment of the basilar tip, also developmental variant. There is severe hypoplasia of the basilar artery proximal to the persistent trigeminal artery. There is severe developmental hypoplasia or less likely atherosclerotic stenosis of the A1 segment of right anterior cerebral artery. The right A2 segment is supplied predominantly from the left anterior cerebral artery via the anterior communicating artery. The left posterior communicating artery is not visualized. Atherosclerotic calcifications are seen in bilateral distal intracranial internal carotid arteries with less than 50% stenosis. There is an ununited comminuted fracture of the base of the odontoid with 3 to 4 mm anterior displacement of the odontoid with respect to the body of C2 with diastases on the fracture line with adjacent mildly displaced fracture fragments. There is widening of the interspinous distance at C1-C2. Novascular injury or extravasation is seen. There is rightward curvature of cervical spine with preservation of cervical lordosis. No suspicious neck mass or abnormal enhancement. No pathologic lymphadenopathy. No acute osseous abnormality. There is generalized age-appropriate atrophy with [id number] nonspecific patchy hypodensity in the periventricular and deep cerebral white matter in the pa rtially included bilateral deep cerebral white matter, likely nonspecific chronic white matter microvascular disease. Please refer to the CT chest exam of same date regarding the intrathoracic findings. Impression: IMPRESSION: 1. Ununited comminuted fracture of the base of the odontoid with 3 to 4 mm anterior displacement ofthe odontoid with respect to the body of C2 with diastases on the fracture line with adjacent mildly displaced fracture fragments. There is widening of the interspinous distance at C1-C2. 2. No vascular injury or extravasation. 3. Atherosclerotic calcifications in the aortic arch and distal left common carotid artery extending into the origin of left external carotid artery and minimally at the origin of the left carotid bulb with less than 50% stenosis. No hemodynamically significant stenosis or aneurysm in the cervical internal carotid arteries. 4. 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 5. 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 6. origin of right posterior cerebral artery from the supraclinoid right internal carotid artery with developmental hypoplasia of the right T1 segment of the basilar tip. 7. Severe hypoplasia or less likely atherosclerotic stenosis of the A1 segment of right anterior cerebral artery. The right A2 segment is supplied predominantly from the left anterior cerebral arteryvia the anterior communicating artery. 8. Please see above report for the other findings. Referred By: ISAK KANG Interpreted By: Maria G Gilbert MD, 01/19/2025 8:47 PM MRI CERV SPINE WO CON [[id number]] Collected: 01/21/25704 Updated: 01/21/25715 Narrative: [address] [address] EXAMINATION: MRI OF THE CERVICAL SPINE WITHOUT CONTRAST INDICATION: Concern for cord contusion. COMPARISON: CTA head and neck on 01/20/2025. TECHNIQUE: Multiplanar and multi-sequential MRI examination of the cervical spine was performed without contrast. FINDINGS: Notable imaging artifact limiting this evaluation. There is exaggerated lordosis of the cervical spine, favored to be positional. No evidence of significant spondylolisthesis. There is multilevel minimal intervertebral disc space narrowing and associated endplate degenerative changes. There is a chronic nonunited C2 fracture with fluid in the fracture cleft. Evaluation for cord signal abnormality is limited due to extensive artifact (predominantly due to patient motion). No convincing evidence of a cord contusion is seen. The craniovertebral junction is normal. Individual disk levels are as follows: C2-3: Minimal central protrusion with uncovertebral and facet arthropathy. No significant spinal canal or neural foraminal stenosis. C3-4: Minimal disc osteophyte complex without significant spinal canal or neural foraminal stenosis. C4-5: Mild disc bulge with minimal uncovertebral and facet arthropathy. Mild spinal canal stenosis.Mild bilateral neural foraminal stenoses. C5-6: Mild disc bulge with uncovertebral and facet arthropathy and ligamentous thickening. Mild spinal canal stenosis. Rlza-lw-tyekhewk bilateral neural foraminal stenoses. C6-7: Minimal disc bulge with facet arthropathy. No significant spinal canal stenosis. No convincing evidence of significant neural foraminal stenosis though artifact limits accurate characterization. C7-T1: No evidence of significant spinal canal or neural foraminal stenosis. Impression: IMPRESSION: 1. No convincing evidence of cord contusion, however significant artifact (predominantly related topatient motion) significantly limits this evaluation. 2. Chronic nonunited C2 fracture. Ordered By: OBINNA GIBBS Interpreted By: Bryan Vogel MD, 01/21/2025 7:05 AM MRI BRAIN WO CON [[id number]] Collected: 01/20/251812 Updated: 01/20/251826 Narrative: [address] [address] EXAM: MRI BRAIN WO CON DATE: 01/20/2025 COMPARISON: None. Head CT from earlier today. INDICATION: Stroke TECHNIQUE: Noncontrast multiplanar multisequence imaging. Routine priority exam. FINDINGS: There are abnormal diffusion findings consistent with acute strokes. The 2 larger findings are in the posterior left basal ganglia and the adjacent brain between the sylvian fissure and temporal horn. There are 2 smaller subependymal foci of high signal along the lateral side of the left ventricular atrium. Possible additional small acute stroke in the anteromedial left temporal lobe. The inferomedial temporal finding is not well seen on the ADC images. The other abnormalities are lowsignal consistent with the acute strokes. On the gradient images, there is serpiginous and mild focal low signal in the brain adjacent to thesmoothly marginated depression in the calvarium posterior laterally on the right side. Probable hemosiderin deposition. Moderate diffuse volume loss. Normal ventricular size. No midline shift. There is a focal defect inthe mid body of the corpus callosum. This measures about 6 mm and could be an old stroke. With substantial artifact on the FLAIR images, bilateral focal and confluent hyperintensity likely represent small vessel disease. Normal flow voids in the basilar and internal carotid arteries. Impression: IMPRESSION: 1. Small acute left-sided strokes in the left basal ganglia and adjacent temporal lobe. Possible additional stroke in the inferomedial left temporal lobe. 2. Volume loss and probable small vessel disease. 3. Calvarial contour abnormality could be correlated with prior trauma. 4. Preliminary report was sent to Dr Gibbs by [employer] at 1825 hours on 01/20/2025. Referred By: ISAK KANG Interpreted By: Ryan Prasad MD, 01/20/2025 6:13 PM CTA HEAD+NECK [[id number]] Collected: 01/20/25 1233 Updated: 01/20/25 1308 Narrative: [address] [address] Examination: Cervicocerebral CTA. Exam time: 1137 hours. Clinical history: Right-sided weakness. Visual disturbance. Suspected chronic C2 fracture. Comparison: CT neck, 01/19/2025, noncontrast head CT, 01/20/2025. Technique: Thin section spiral axial scans were acquired from the level of the aortic arch to the vertex during the administration of intravenous contrast for evaluation of the carotid and vertebral arteries and their distributions. 3-D MIP sagittal and coronal, rotating 3-D MIP and rotating volumerendered 3-D reconstructions were performed from the data set. A dose lowering technique was used for this procedure, which may include, but is not limited to, dose reduction techniques, automated exposure control, the use of iterative reconstruction and ALARA/Image Gently techniques. Stenosis estimates are made using NASCET criteria. Findings: VASCULAR FINDINGS: There is the typical configuration of the origin of the great vessels from the aortic arch. There is minor atherosclerotic calcification of the aorta and arch vessels. The brachiocephalic and bilateral subclavian and axillary arteries are widely patent. The vertebral arteries arerather diminutive but widely patent bilaterally with slight left dominance. 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 The left vertebral artery continues as the basilar artery which is hypoplastic proximally but patent. 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 The arteries of the [place] are otherwise unremarkable with no aneurysm, vascular malformation or major vessel occlusion identified. The common and internal carotid arteries and carotid bulbs are widely patent bilaterally with only mild disease in the siphons. Dense calcific plaque at the origin of the left external carotid artery precludes reliable assessment although there is no poststenotic dilatation. The external carotid arteries are otherwise widely patent. NONVASCULAR FINDINGS: There is no abnormal intracranial enhancement. The orbits and orbital contents appear unremarkable. The patient is nearly edentulous. 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 There is spondylosis, in keeping with age. Changes from median sternotomy again evident. Incidental azygos lobe is noted. Findings suggesting pulmonary fibrosis again evident. Impression: IMPRESSION: 1. No acute or significant cervicocerebral vascular abnormality identified. 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 See text. 2. 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 3. Additional chronic/nonurgent findings as described. Referred By: ISAK KANG Interpreted By: Atilio Varela MD, 01/20/2025 12:[address] HEAD WO CON [[id number]] Collected: 01/20/25 1218 Updated: 01/20/25 1225 Narrative: [address] [address] Examination: CT of the head without contrast. Exam time: 1135 hours. Clinical history: Right-sided weakness. Visual disturbance. History of diabetes and hypertension. Comparison: None Technique: Noncontrast axial scans from skull base to vertex. Sagittal and coronal reconstructions were performed from the data set. A dose lowering technique was used for this procedure, which may include, but is not limited to, dose reduction techniques, automated exposure control, the use of iterative reconstruction and ALARA/Image Gently techniques. Findings: There is prominence of the ventricles, fissures and sulci, greater than anticipated for age, compatible with moderate diffuse cortical atrophy. No shift of midline or mass effect is noted. There is periventricular decreased attenuation, compatible with small vessel disease. No other areasof abnormal x- ray attenuation are identified. In particular, there is no mass, hemorrhage or sign of acute stroke. No extracerebral fluid collections. The mastoid air cells and paranasal sinuses appear clear. Deformity of the right posterior parietal calvarium may be congenital versus remote posttraumatic sequela. Correlation with the history is advised. Impression: IMPRESSION: 1. No acute intracranial process identified. 2. Cortical atrophy and small vessel disease. 3. 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 Clinical correlation required. Referred By: ISAK KANG Interpreted By: Atilio Varela MD, 01/20/2025 12:18 PM MRI BRAIN W CON [[id number]] CT STROKE(HEAD WO) [[id number]] CTA HEAD+NECK [[id number]] XR CERV SPINE LAT 1V [[id number]] Collected: 01/20/256 Updated: 01/20/25420 Narrative: [address] [address] EXAMINATION: XR CERV SPINE LAT 1V HISTORY: Closed C2 fracture. COMPARISON: CTA neck 01/19/2025. TECHNIQUE: Single lateral view of the cervical spine. FINDINGS: Diffuse osteopenia of the cervical spine. The known C2 fracture seen on comparison CT imaging is not well depicted radiographically. No significant cortical step-off seen involving the C2 vertebrae. Vertebral body heights appear preserved. Multilevel degenerative disc space narrowing. Multilevel facet arthropathy. Prevertebral soft tissues appear normal. Impression: IMPRESSION: The known C2 fracture is not well depicted radiographically. No significant cortical step-off is seen involving the C2 vertebrae. Referred By: ISAK KANG Interpreted By: Alfie Davey MD, 01/20/2025 4:[address] CHEST+ABD+PEL W CON [[id number]] Collected: 01/19/252042 Updated: 01/19/252117 Narrative: [address] [address] CLINICAL INDICATION: 69-year-old male. Reason for examination: Ground-level fall with abdominal pain 01/19/2025 7:58 PM, Kwan Varela L: 100ml [id number] injected into AC, creat 0.8 from [facility]. Trauma CAT 3 transfer - Pt fall and laid on the ground for hours. known dens fx. Images from [facility] on PACS. Scanned by [facility] TECHNIQUE: CT of the chest, abdomen and pelvis was obtained in the axial projection following administration of 100 cc of Isovue 370. Additional delayed images were obtained. through the same levels. Coronal and sagittal reconstructions were provided of both phases of imaging. Intravenous contrast was injected via indwelling IV access site in the right antecubital fossa. No adverse contrast reaction. It should be noted that the dictations for the chest and abdomen and pelvis are contained within this one report. Dose lowering technique was used for this study which may include, but is not limited to, dose reduction techniques, automated exposure control, use of iterative reconstruction and ALARA (As low As Reasonably Achievable)/Image Gently techniques. COMPARISON: For the purposes of this study there is, portable trauma chest radiograph from [facility] at 15:48.. Outside imaging also includes CTA head and neck, CT brain and CT C-spine CT chest without contrast 12/09/2023. FROM [facility] CT chest without contrast 03/20/2023. [facility] CT abdomen and pelvis without contrast [facility] FINDINGS: CHEST: There is no pneumothorax. No pleural effusion or consolidation. No findings of interstitial edema or congestion. No localized nodular opacities that would suggest pulmonary hemorrhage or pulmonary contusion. The lingula and left lower lobe opacity is now better seen to be asymmetric elevation left diaphragm and large epicardial fat pad. There is no CT findings of pneumonia. There is, however mid and lower lung field peripheral tree-in-bud and probably thickened bronchial smith in the lower lungfields without mucous plugging or endobronchial lesion. Probably bronchitis or bronchiolitis this is unchanged since the [address] studies. May be chronic. Redemonstration of stable rounded 13 mm pleural-based nodule lateral basal segment right lower lobe(axial image 65). Interval development of tiny central calcifications may be developing granuloma. There is no mediastinal or hilar or axillary lymphadenopathy. The heart is normal in size. No pericardial effusion. There is no hepatic venous reflux. Heavy right and left and circumflex and LAD [place] coronary artery calcifications which have been over supplied by CABG. VASCULAR IMAGING: All segments of the thoracic and abdominal aorta are normal in caliber. No evidence of traumatic aortic injury. No evidence of aortic dissection. No periaortic fluid in the chest or abdomen. Normal caliber and normal opacification 3 separate great vessels. Normal caliber normal opacification mesenteric arteries and single right and single left with accessory left renal artery. Essentially no calcific or atheromatous disease in the aorta or great vessels mesenteric arteries and renal arteries. No hemodynamically significant narrowing of the inflow. There is long segment scattered plaque of proximal outflow arteries. This is unchanged since 2022. BONE WINDOW IMAGING: The sternum is well healed around median sternotomy wire sutures. No evidence of acute sternal fracture. The lower clavicles are intact. Right and left ribs intact. Old wedge compression deformity superior endplate T10 with 10% loss of height of this vertebral segment and exaggeration due to central spinal stenosis. No retropulsion of the posterior vertebral margin. There is no acute fracture or traumatic malalignment in the thoracolumbar spine pelvis or hips. . MPRESSION: 1.No CT evidence of acute traumatic injury to the thoracic or abdominal aorta 2.No pneumothorax. No congestion or pneumonia or pleural effusion or pneumonia. 3.The opacification of lingula and left lower lobe seen on the trauma chest radiograph is now seen to be superimposition of large left pericardial fat pad and elevated left diaphragm... 4. Chronic findings suggestive of bronchitis or bronchiolitis 5. No acute fracture in the bony thorax 6. No acute fracture in the thoracolumbar spine pelvis or hips 7. Old wedge compression deformity T10 ABDOMEN: The liver, spleen, pancreas adrenal glands and kidneys are grossly normal. Mild gallbladder distention with the fundus of the gallbladder abutting the lateral abdominal wall. No gallbladder wall thickening or pericholecystic fluid or gallstones or sludge. There is no extrahepatic ductal dilatation. There is no evidence of traumatic injury to the organs of the abdomen or pelvis. Both kidneys demonstrate symmetric uptake concentration and clearance of the contrast material. No hydronephrosis. Normal caliber ureters opacify through the abdomen into the bladder. There is no peritoneal or retroperitoneal fluid or hemorrhage. GI: The stomach is unremarkable. The unopacified loops of small bowel and colon are grossly normal in caliber and position. No evidence of traumatic bowel wall injury or bowel wall hematoma. No bowelobstruction. PELVIS: The urinary bladder is filled with contrast. Normal size. Normal bladder wall around the contrast. There is no extravasation of contrast to suggest injury to the renal collecting systems.. No free fluid in the dependent pelvis. The prostate measures 4 cm in diameter. Tiny TURP defect. Impression: IMPRESSION: 1. No CT evidence of acute injury to the solid organs or hollow viscus of the abdomen and pelvis. Referred By: ISAK KANG Interpreted By: Trina Ferrera DO, 01/19/2025 8:43 PM Impression: Patient Active Problem List Diagnosis Coronary artery disease involving [place] coronary artery of [place] heart without angina pectoris Hyperlipidemia S/P CABG x 4 Benign essential HTN Microalbuminuria Non-rheumatic mitral regurgitation COVID-19 vaccination declined Uncontrolled type 2 diabetes mellitus with hyperglycemia (CMS/HCC HHS/HCC) Stage 3a chronic kidney disease (CMS/HCC) Closed C2 fracture (CMS/HCC HHS/HCC) Acute embolic stroke (CMS/HCC HHS/HCC) Fall 01/24/2025 1:00 PM Cosigned by Josias Mackay MD at 01/24/2025 5:58 PM CDT Associated attestation - Josias Mackay MD - 01/24/2025 5:58 PM CDT Images from the original note were not included. I, JOSIAS MACKAY MD, saw the patient with the LOBO. I have reviewed the LOBO's documentation and agreewith the findings except as I have documented below. I obtained some of the history and contributedto the physical exam. I personally reviewed all the testing data and looked at the available brain and head and neck imaging. I personally formulated all the MDM portion and planned all the patient'smanagement as documented above by the LOBO. The pattern of infarction is embolism to the left anterior choroidal artery, a branch of the distalsupraclinoid portion of the ICA. JOSIAS MACKAY MD * Ami Zee, HEDGE FUND MANAGER - 01/24/2025 12:56 PM CDT PT Treatment Discharge Recommendation: Inpatient Rehab DME equipment recommendation: none Activity Recommendation for zipper setter chainstitch: up with nichole 01/24/25 1248 Therapy Visit Ordering Provider Phylicia Howard NP Subjective RN okayed session. Pt awake in bed and agreeable to PT session. Trauma PA came in as therapy was starting session and noted his R side appears to be weaker today as compared to when she saw him yesterday. Neurology notified. Pt reports his R leg feels more numb today. Reason for admission Pt presents after fall from bed at home. 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 While at hospital, pt found to have acute right sided weakness and blurry vision.MRI demonstrates: small acute left-sided strokes in the left basal ganglia, adjacent temporal lobe,possible additional stroke in the inferomedial left temporal lobe, volume loss and probable small ve ssel disease. ......PMH: Acute myocardial infarction, Ankle fracture, fracture left fibula, Coronary artery disease, Diabetes, DKA, HTN, Eustachian tube dysfunction, HLD, Hx of CABG, Microalbuminuria, Myocardial infarction, Non- rheumatic mitral regurgitation .........Therapy orders: eval and treat.. ..Activity as tolerated, up at jahaira with collar Verified Two Patient Identifiers Yes Patient consents to therapy Yes Acute Inpatient PT Time Calculation PT Start Time 0944 PT Stop Time 1022 PT Time Calculation (min) 38 min Precautions Spine Precautions Bending;Lifting;Twisting Neck Brace Applied Yes General Precautions Aspiration;Bed Alarm;Chair Alarm;Fall Risk Other c-spine precautions with [place] J at all times, keofed, telemetry, purewick Prior Function PLOF Comments Patient lives alone in a 1.5 story house, but resides on the main floor only. There are 2-3 steps to enter, no handrail. Bathroom has a tub/shower combo without a seat or grab bar, standard height toilet seat with vanity nearby for support. Patient owns a 2 wh/walker, but typically does not use any assistive devices. He states he is independent with all mobility, ADL's and IADL's, still drives and does errands. He reports no available assistance. Patient reports during the most recent fall he fell attempting to get out ofb bed. He reports another recent fall on the sidewalk lastweek, hitting his chest.........Daughter states that if necessary, her father can stay with her andthe daughter's fiance. They live in a 2 story house, but patient will reside on main floor. There are 4 steps with a handrail to enter. Bathroom is a tub/shower combo with standard toilet and vanity.Daughter works shift stacker as an RN, but her fiance will be home as needed for 17/05 supervision. Pain Pain Yes Pain Score Did not rate Location RUE with movement, states it hurts in his neck Interventions Informed RN;Re-direction;Re-positioning Activity Tolerance Endurance Quality Fair Limiting Factors to Endurance Weakness (more right sided weakness today) Cognition Overall Cognitive Status Impaired Safety Judgment Decreased awareness of need for assistance Awareness of Errors Assistance required to identify errors made Deficits Decreased awareness of deficits Problem Solving Assistance required to identify errors made Comments somewhat lethargic in the bed, alertness improves once sitting at edge of bed Bed Mobility Supine to Sit Max assist to right;Assist of 2 Other (Comment) unable to assist with RLE or RUE this date TRANSFERS Sit to Stand Max assist;Assist of 2 Bed to Chair Max assist;Assist of 2 Gait Gait Assistance MIRELLA Balance Sitting - Static CGA;Min Assist;Mod Assist;Max Assist Sitting - Dynamic Max Assist Standing - Static Max Assist;Assist of 2 Persons (R knee buckling and had to be blocked by therapist) Standing - Dynamic Max Assist;Assist of 2 Persons Other (Comment) Pt sandra sitting at edge of bed x8-9 mins. Initially required maxA, eventually graduated to cga/Oscar after 5-6 mins of proprioceptive techniques and verbal and tactile cueing. Pt slumped forward with poor posture, max tactile cues to squeeze scapula together for more upright posture. Exercises Ankle Pumps lx10, only able to perform 3-4 on R ankle prior to fatigue Sitting LE Exercise [id number], maxA for right le PT Assessment PT Assessment Pt required extra time, effort, instruction to complete minimal activity this date. Frequent stops for repositioning and cueing for posture and safety technique. Not safe to d/c home from PT standpoint. May potentially need a PT re-eval due to significantly worse this session functionally as compared to previous session. Modified Marlena Score Pre-Morbid (Baseline) Score 0-6 0 Interval Daily Interval Score 0-6 4 Patient/Family Training Other (Comment) Educated pt on importance of OOB activity Discharge Recommendation PT Recommendation Inpatient rehab Plan PT Treatments/Interventions Gait Training;Manual Therapy;Therapeutic Exercises;Therapeutic Activities;Neuromuscular re-education;Patient/family training PT Frequency 5 times/week PT - Next Appointment 01/24/25 If this is the last treatment note,it will serve as the discharge summary Yes End of Session End of Session Safety Chair alarm set/activated;Call light within reach;Nursing aware of session;Transfer status education End of Session Comment nichole sling left under pt for nsg staff to return pt to bed at later time Education: Primary Learners Name: Олег Watson Primary Language of learner: Mosotho Patient was educated on precautions exercises transfers balance bed mobility therapy plan safety joint protection. Education was completed one to one this date. Preference of learning new concepts one to one Barriers to education this date were hearing impairment cognition difficulty speaking physical impairment. Response to education this date needs follow up. * Ada Young, DIRECTOR OF MEDICARE - 01/24/2025 12:04 PM CDT Speech Therapy Treatment Note Diet Recommendation: NPO - Strict Recommendations: Non oral means for nutrition and medications per medical care team and as consistent with goals of care Oral care per protocol + suction available at all times Could consider completion of a video swallow study pending clinical improvement - not appropriate this date Continued skilled ST for dysphagia management as well as motor speech treatment Summary Statement: This patient presents with clinical signs of worsened oropharyngeal swallow function as well as increased dysphonia. Patient with cul-de-sac resonance. Patient inconsistently able to trigger a pharyngeal swallow this date despite continuous cueing. Patient demonstrating overt signs of aspiration with limited, scant ice chips. Further trials were deferred due to safety concerns.Patient with poor completion of pharyngeal strengthening exercises this date. *Please see attached flowsheet below for objective data: 01/24/25 1100 Therapy Visit DIRECTOR OF MEDICARE Received on 01/20/25 DIRECTOR OF MEDICARE Evaluation Completed on 01/21/25 Subjective Patient seen alert in bed. [place] J collar present. 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 While at hospital, pt with right sided weakness and blurry vision. MRI demonstrates: small acute left-sided strokes in the left basal ganglia, adjacent temporal lobe, possible additional stroke in the inferomedial left temporal lobe, volume loss and probable small vessel disease. Living situation Home Mental status Alert;Responsive;Cooperative Verified Two Patient Identifiers Yes Patient consents to Therapy Yes Inpatient DIRECTOR OF MEDICARE Time Calculation DIRECTOR OF MEDICARE Start Time 0855 DIRECTOR OF MEDICARE Stop Time 09 DIRECTOR OF MEDICARE Time Calculation (min) 17 min Precautions Precautions Aspiration;Neck brace;Stroke protocol;Supplemental oxygen Instructed on Precautions Yes;Needs reinforcement and education;Verbalizes understanding Pain Pain Yes Pain Location in back when seeated upright Interventions Patient reclined. Bedside Swallow Interventions Direct instruction in pharyngeal exercise program;Pt education/counseling;Sensory stimulation Pharyngeal exercise program Effortful swallow maneuver Pharyngeal exercise program comment This patient was seen alert and upright in bed for dysphagia treatment session follow up. Patient presents with increased dysphonia which slightly improved following extensive oral care. Senior Operations Analyst removed thick mucous from the posterior oral cavity. Senior Operations Analyst secured suction materials. Patient was offered limited, scant ice chips following oral care as sensatory stimulation for completion of pharyngeal strengthening exercises. Patient with increased difficulities triggering a pharyngeal swallow this date. Patient inconsistently able to trigger a pharyngeal swallow and appeared clinically weak and delayed. Patient with overt signs of aspiration such as wet vocalquality, coughing and choking with ice chips; therefore limited offered. Suction provided. Patient completed 6 effortful swallows with continuous cueing. Patient with poor completion of pharyngeal strengthening exercises this date. Pt education/counseling Extensive education provided to patient regarding aspiration, risk of aspiration, recommendation of NPO, possibility of a video swallow study pending clinical improvement, andimportance of oral care. DIRECTOR OF MEDICARE Recommendations Ongoing Recommendations DIRECTOR OF MEDICARE during hospitalization Recommended Diet Change No Previous Diet NPO Recommended Solid Diet NPO Transitional Food Permitted No Recommended Liquid Consistency NPO Recommended Medication Form IV;Feeding tube Understanding of information was judged to be Fair by patient Results/Recommendations discussed with RNMD, patient Plan DIRECTOR OF MEDICARE Treatments/Interventions Swallowing treatment;Motor speech DIRECTOR OF MEDICARE Frequency 3 times/week;5 times/week DIRECTOR OF MEDICARE Next Appointment 01/24/25 If this is the last treatment note, it will serve as the discharge summary Yes End of Session End of Session Safety Nursing aware of session;Call light within reach;Bed alarm set/activated * Caroline Fajardo RN - 01/24/2025 8:48 AM CDT 01/24/25 0848 Interdisciplinary Group Conference Team Members Present Physician;Case/Care management;Nursing Physician present for group conference Tonia Medrano NP; Naya Gonzalez MD Patient Current Status Paient current status Inpatient Barriers to Discharge Inpatient Review Other follow up (Comment) OT/PT/DIRECTOR OF MEDICARE on schedule. Concerns for worsending slurring and right sided weakness. Per bedside nurse, reached out to Int Neuro, no concerns. Pt agreeable to Peg tube placement. Poss LOY later this week. TF, NG tube R nare. Patient expects to be discharged to Patient expects to be discharged to: Inpatient Rehab Facility (IRF) (PT/OT recs for Inpt Rehab. Several referrals pending, [facility] following. [facility] is #2 Choice. Awaiting remainder of clinical course.) 1507: Updates sent to Inpt Rehabs and accepting SNF. * DONNIE Cruz - 01/24/2025 7:41 AM CDT Images from the original note were not included. TRAUMA PROGRESS NOTE DONNIE CRUZ, 01/24/2025, 7:41 AM REGIONAL LEVEL 1 TRAUMA CENTER ACUTE CARE SURGERY SERVICE: EMERGENCY SURGERY, TRAUMA, SURGICAL CRITICAL CARE [address] [place] [id number] TO CONTACT PROVIDERS: Trauma Surgeon/Critical Care Snow Removing Supervisor MD: [id number] Emergency Surgery MD: [id number] Advanced Practice Provider - Trauma: [id number] Advanced Practice Provider - Emergency Surgery [id number] Name: Олег Watson Date of : 1955 Room/Bed: [facility]/ Date: 01/24/2025 Time: 7:41 AM CHIEF COMPLAINT: neck pain ASSESSMENT: 69-year-old male who presents with Closed C2 fracture ([facility]) Acute embolic stroke ([facility]) Fall PLAN: 01/24 Reached out to [facility] [place] Hospitalist Dr Gonzalez today. She will assume care for this patient. Trauma services will sign off at this time. Please feel free to contact us if we can be any assistance #Right upper extremity/Right lower extremity weakness on exam this AM ~ 1030AM #Blurry vision 01/20 STAT stroke, please see significant event note for more details. ASA 81mg daily Atorvastatin 80mg qhs Neuro checks q4h DIRECTOR OF MEDICARE to eval and treat Continuous telemetry 01/20 MRI C-spine/head- demonstrating acute L SV IC infarctions 01/24: Abimbola Chaparro INSTALLATION SERVICE REPRESENTATIVE was notified via [employer] 01/24 @ 1003 by Charissa SALGUERO regarding worsening of symptoms- increased right weakness, increased slurred speech (Dr Donaldson notified) #Chronic C2 fracture Ortho Spine - [place] Activity: Maintain pauma J cervical collar at all times, ambulate as tolerated PT/OT to eval and treat Outpatient follow up with Dr. Montanez #DM History of uncontrolled diabetes A1C on admission 12.3 BS 452 last evening Extra dose Lispro 7 units given ISS- increased to 0-16 units Increased Lantus 12U BID 01/24: consulted [place] endo Dysphagia DIRECTOR OF MEDICARE follow Failed BS swallow with DIRECTOR OF MEDICARE today Strict NPO Non oral means for nutrition and medications per medical care team and as consistent with goals of care Oral care per protocol May consider completion of a video swallow study in the next 1-2 treatment session if symptoms persist Continued skilled ST for dysphagia management as well as motor speech treatment Nutrition Dietitian following TF with Glucerna 1.2 NICOLE via Keofeed at 20 mL/hr and advance by 15 mL/hr every 4 hours as toleratedto goal rate of 65 mL/hr. Free water flush: 50 mL every 4 hours. Provide 1 packet(s) of Prosource once daily Provide 100 mg Thiamine and MVI daily x 10 days Labs: BMP, Mg and Phos daily. Replete electrolytes as indicated. Weigh patient at least twice weekly. HTN SBP 151-180's Increased metoprolol 25mg BID Cont HEDGE FUND MANAGER lisinopril 5mg daily Cont Labetalol 20mg q6hr IV PRN SBP > 160 Added Hydralazine PRN PM&R Dr Vasquez Recommend PT and OT: working on strength, endurance, balance, and techniques to improve safety and independence with ADLs and mobility Recommend DIRECTOR OF MEDICARE: work on cognition, speech and swallow Will need diet advanced or PEG placed prior to discharge, education provided to patient and family would benefit from an acute rehabilitation program with PT/OT/DIRECTOR OF MEDICARE 3h/d, at least 5d/wk to improve endurance, mobility, activities of daily living, cognition, and swallowing as appropriate General Trauma Care Full code IMC VS q4 I&O q4 Cardiac monitoring Pain control Tylenol 650mg q4h PRN mild [place]utherland 5mg q6h PRN mod Roxicodone 5mg q6h PRN severe Lidocaine patch DVT ppx: SCDs + Lovenox 30mg BID, started on 01/20. Patient does not Require DVT ppx at discharge Nutrition: strict NPO Fluids: none Antiemetics: zofran PRN Bowel regimen: LBM 01/22 Senokot BID scheduled GI ppx: protonix Pulmonary hygiene: IS q15min while awake Supplemental O2 Required: No Activity: as tolerated, maintain cervical collar at all times PT/OT: to eval and treat DIRECTOR OF MEDICARE: to eval and treat Electrolytes: Monitor Electrolytes and replace PRN Labs: CBC, BMP, Mag, Phos L/D/A: PIV Home medications: restarted, atorvastatin increased to 80mg qhs 01/20 Tertiary survey completed: 01/20 - right sided upper and lower weakness with blurry vision CODE: Full Code Disposition: Social work/case management for discharge/transfer dispostion, Disposition under consideration per patient assessment, Continue to re-assess. herapy recommends IPR. Dr Vasquez following Patient is not medically stable for discharge. Patient is not medically stable for discharge. Potential barriers to acute rehab: Currently NPO with TF via Keofeed (needs diet advanced or PEG placed) SUBJECTIVE: Pt endorses neck discomfort today. Does not like the pauma J. He believes his right side is weaker today. He reports tingling in right leg today. Denies BAUER, N/V, SOB Significant Interval History: 01/21: keofed placed and TF started 01/23: Dr Vasquez following . CURRENT MEDS: Scheduled Meds: aspirin 81 mg Tube Daily atorvastatin 80 mg Tube Nightly at bedtime enoxaparin 30 mg Subcutaneous Q12H insulin glargine 12 Units Subcutaneous Nightly at bedtime insulin lispro 0-16 Units Subcutaneous Q4H lansoprazole 30 mg Tube QAM AC lidocaine 1 patch Transdermal Q24H lisinopril 5 mg Tube Daily metoprolol tartrate 25 mg Tube BID multivitamin 1 tablet Tube Daily protein supplement 1 packet Feeding Tube Daily senna-docusate 1 tablet Tube BID thiamine 100 mg Tube Daily Continuous Infusions: TF diabetic w/Fiber 65 mL/hr (01/23/25 1616) PRN Meds:acetaminophen OR acetaminophen OR acetaminophen, hydrALAZINE, HYDROcodone-acetaminophen, labetalol, naLOXone, ondansetron, oxyCODONE immediate release REVIEW OF SYSTEMS: Pertinent items are noted in HPI. OBJECTIVE: Vital Signs Last 24 Hours: Temp: [97.6 ??F (36.4 ??C)-100.6 ??F (38.1 ??C)] 99 ??F (37.2 ??C) Pulse: [93-110] 110 Resp: [18-20] 20 BP: (134-188)/(77-92) 155/80 Lines, Drains, Tubes: Output by Drain (mL) 01/22/25 0700 - 01/22/25 1459 01/22/25 1500 - 01/22/25 2259 01/22/25 2300 - 01/23/25 0659 01/23/25 0700 - 01/23/25 1459 01/23/25 1500 - 01/23/25 2259 01/23/25 2300 - 01/24/25 0659 01/24/25 0700 - 01/24/25 0741 Requested LDAs do not have output data documented. I/O totals for the last 24 hours: Intake/Output Summary (Last 24 hours) at 01/24/2025 0741 Last data filed at 01/24/2025 0616 Gross per 24 hour Intake -- Output 2100 ml Net -2100 ml PHYSICAL EXAM: General appearance: Sitting up in bed. alert and oriented, oriented to person, place, and time, Neurological: Speech is slow more slurred than yesterday- Dr Carlos Gamble and intervention neurology notified, worsening decreased motor strength to RUE and RLE- Dr Carlos Gamble and interventional neurology notified, right facial droop, GCS 15 Scalp: Skin intact, no lacerations or lesions noted Face: Structural elements stable, facial soft tissue normal Eyes: Tracking without difficulty, extra-ocular muscles intact, PERRL, patient relays blurry visionin both eyes Ears: Hearing impaired in bilateral ear, wearing head aids and able to hear Nose: Keofed present Mouth: Mucous membranes moist, no signficant deformity or malocclusion Neck: Trachea midline, Symmetric, [place] collar in place Chest: No dyspnea or respiratory distress noted, sufficient air movement, broadly clear Heart: S1 and S2 normal, normal rate Abdomen: soft, nontender, nondistended Pelvis: stable pelvis, no signs of structural deformity Back exam: soft tissues broadly normal, no step-offs noted on thoracic or lumbar spine, no midline tenderness to cervical, thoracic, or lumbar regions Musculoskeletal: Motor and sensory grossly normal bilaterally to LUE and LLE. Worsening decreased motor strength to RUE and RLE- Dr Carlos Gamble and interventional neurology notified, Unable to raise RUE & RLE off bed today. Unable to shoulder shrug on right today. This is a change from yesterday. sensation and distal pulses intact to all extremities Skin: warm and dry Psychiatric: calm, pleasant and cooperative LABS: Recent Labs Lab 01/20/25 1124 01/21/25 0340 01/22/25 0611 01/23/25 0839 01/24/25 0126 01/24/25 0705 WBC 4.85 4.67 4.67 7.95 -- 10.93* HGB 13.2 12.9 13.6 13.9 -- 14.4 HCT 38.5 38.5 41.1 40.8 -- 42.5 PLT 176 170 179 217 -- 201 INR 1.0 -- -- -- -- -- PTT 33.8 -- -- -- -- -- NA 135* 138 136 134* 136 -- K 4.2 4.1 3.9 3.7 3.7 -- CL 102 106 104 99 100 -- CO2 24.6 24.2 22.8 25.4 26.9 -- AGAP 8.4 7.8 9.2 9.6 9.1 -- BUN 12 14 13 13 16 -- CR 1.45* 1.29 1.14 1.16 1.14 -- GLU 272* 241* 234* 302* 323* -- CA 9.2 9.1 9.1 9.2 9.5 -- TP 6.6 -- -- -- -- -- ALB 2.9* -- -- -- -- -- TBIL 0.3 -- -- -- -- -- ALKP 87 -- -- -- -- -- AST 16 -- -- -- -- -- ALT 19 -- -- -- -- -- MAGNESIUM -- 1.6 1.7 1.8 -- -- PHOS -- 2.8 2.5 2.6 -- -- PH ARTERIAL Date Value Ref Range Status 05/10/2018 7.36 7.35 - 7.45 Final PCO2 Date Value Ref Range Status 05/10/2018 40 35.0 - 45.0 MM HG Final PO2 Date Value Ref Range Status 05/10/2018 75 (L) 80.0 - 100.0 MM HG Final O2 SATURATION Date Value Ref Range Status 05/09/2018 100.0 90.0 - 100.0 % Final BICARB ARTERIAL Date Value Ref Range Status 05/10/2018 22.6 22.0 - 26.0 MEQ/L Final BASE DEFICIT Date Value Ref Range Status 05/10/2018 2.7 MEQ/L Final BE/BASE EXCESS Date Value Ref Range Status 05/09/2018 0.0 MEQ/L Final No results for input(s): ABORH in the last 168 hours. No results for input(s): CKTOTAL in the last 168 hours. CULTURES & SENSITIVITIES: No results found for this visit on 01/19/25 (from the past 2 weeks). No results found for this visit on 01/19/25 (from the past 2 weeks). PATHOLOGY: * Cannot find OR log * IMAGING: Radiology Results (Last 30 days) 01/21/25 1455 XR FEEDING TUBE PLCMENT Final result Impression: IMPRESSION: Successful postpyloric Chu fed placement. The attending radiologist was present in the department for all critical portions of the examination, has reviewed the images, and agrees with the resident's interpretation. Dictated By: Gilma Livingston MD on 01/21/2025 2:55 PM The attending radiologist has reviewed the image(s) and agrees with the content of this report. Referred By: ISAK KANG Interpreted By: Gilma Livingston MD, 01/21/2025 2:55 PM 01/21/25 1222 USE ECHOCARDIOGRAM Final result 01/20/25 1710 MRI CERV SPINE WO CON Final result Impression: IMPRESSION: 1. No convincing evidence of cord contusion, however significant artifact (predominantly related to patient motion) significantly limits this evaluation. 2. Chronic nonunited C2 fracture. Ordered By: OBINNA GIBBS Interpreted By: Bryan Vogel MD, 01/21/2025 7:05 AM 01/20/25 1658 MRI BRAIN WO CON Final result Impression: IMPRESSION: 1. Small acute left-sided strokes in the left basal ganglia and adjacent temporal lobe. Possible additional stroke in the inferomedial left temporal lobe. 2. Volume loss and probable small vessel disease. 3. Calvarial contour abnormality could be correlated with prior trauma. 4. Preliminary report was sent to Dr Gibbs by [employer] at 1825 hours on 01/20/2025. Referred By: ISAK KANG Interpreted By: Ryan Prasad MD, 01/20/2025 6:13 PM 01/20/25 1135 CTA HEAD+NECK Final result Impression: IMPRESSION: 1. No acute or significant cervicocerebral vascular abnormality identified. 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 See text. 2. 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 3. Additional chronic/nonurgent findings as described. Referred By: ISAK KANG Interpreted By: Atilio Varela MD, 01/20/2025 12:33 PM 01/20/[address] HEAD WO CON Final result Impression: IMPRESSION: 1. No acute intracranial process identified. 2. Cortical atrophy and small vessel disease. 3. 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 Clinical correlation required. Referred By: ISAK KANG Interpreted By: Atilio Vaerla MD, 01/20/2025 12:18 PM 01/19/25 2210 XR CERV SPINE LAT 1V Final result Impression: IMPRESSION: The known C2 fracture is not well depicted radiographically. No significant cortical step-off is seen involving the C2 vertebrae. Referred By: ISAK KANG Interpreted By: Alfie Davey MD, 01/20/2025 4:16 AM 01/19/252020 CTA NECK Edited Result - FINAL Addenda: [place] [id number] exam was performed using one or more of the following dose reduction techniques: automated exposure control, adjustment of the mA and/or kV according to patient size, the use of iterative reconstruction technique, use of ALARA (As Low As Reasonably Achievable) and/or use of Image Gently techniques. Referred By: ISAK KANG Interpreted By: Maria G Gilbert MD, 01/21/2025 11:25 AM Signed by Maria G Gilbert MD on[01/21/25 1126] Impression: IMPRESSION: 1. Ununited comminuted fracture of the base of the odontoid with 3 to 4 mm anterior displacement of the odontoid with respect to the body of C2 with diastases on the fracture line with adjacent mildly displaced fracture fragments. There is widening of the interspinous distance at C1-C2. 2. No vascular injury or extravasation. 3. Atherosclerotic calcifications in the aortic arch and distal left common carotid artery extending into the origin of left external carotid artery and minimally at the origin of the left carotid bulb with less than 50% stenosis. No hemodynamically significant stenosis or aneurysm in the cervical internal carotid arteries. 4. 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 5. 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 6. origin of right posterior cerebral artery from the supraclinoid right internal carotid artery with developmental hypoplasia of the right T1 segment of the basilar tip. 7. Severe hypoplasia or less likely atherosclerotic stenosis of the A1 segment of right anterior cerebral artery. The right A2 segment is supplied predominantly from the left anterior cerebral artery via the anterior communicating artery. 8. Please see above report for the other findings. Referred By: ISAK KANG Interpreted By: Maria G Gilbert MD, 01/19/2025 8:47 PM 01/19/252020 CT CHEST+ABD+PEL W CON Final result Impression: IMPRESSION: 1. No CT evidence of acute injury to the solid organs or hollow viscus of the abdomen and pelvis. Referred By: ISAK KANG Interpreted By: Trina Ferrera DO, 01/19/2025 8:43 PM Cosigned by Emiliano Donaldson MD at 01/25/2025 4:44 PM CDT Associated attestation - Emiliano Donaldson MD - 01/25/2025 4:44 PM CDT I, EMILIANO DONALDSON MD, participated in the care of this patient today and discussed the plan of care with LOBO Pruett, who shared in this visit. I have reviewed the LOBO's documentation and agree with the findings except as I have documented. I personally spent 0 minutes, caring for this patient. EMILIANO DONALDSON MD * Lizette Gant RN - 01/24/2025 5:55 AM CDT Problem: Discharge Planning Goal: Knowledge of discharge instructions Outcome: Progressing Problem: Pain control/comfort Goal: Promote pain control/comfort Outcome: Progressing Problem: Skin integrity, Impaired-wound Goal: Absence of new skin breakdown Outcome: Progressing Goal: Evidence of wound healing Outcome: Progressing Problem: Skin integrity, Impaired-pressure injury/ulcer Goal: Absence of new skin breakdown Outcome: Progressing Goal: Evidence of pressure injury/ulcer healing Outcome: Progressing Problem: Skin integrity, at risk Goal: Absence of new skin breakdown Outcome: Progressing Problem: Moisture associated skin impairment Goal: Reduce moisture exposure Outcome: Progressing Goal: Evidence of wound healing Outcome: Progressing Goal: Evidence of pressure injury/ulcer healing Outcome: Progressing Goal: Absence of new skin breakdown Outcome: Progressing Problem: Reduced risk for falls/injury Goal: Reduced Risk for Falls/Injury Outcome: Progressing Goal: Reduced Risk of Confusion (Acute vs Chronic) Outcome: Progressing Goal: Reduced Risk of Symptomatic Depression Outcome: Progressing Goal: Reduced Risk of Altered Elimination Outcome: Progressing Goal: Reduced Risk of Dizziness/Vertigo/Balance Outcome: Progressing Goal: Reduced Risk of Polypharmacy Outcome: Progressing Problem: Pain Goal: Patient's pain/discomfort is manageable Description: Assess and monitor patient's pain using appropriate pain scale. Collaborate with interdisciplinary team and initiate plan and interventions as ordered. Re-assess patient's pain level 30 - 60 minutes after pain management intervention. Outcome: Progressing Problem: Safety Goal: Patient will be injury free during hospitalization Description: Assess and monitor vitals signs, neurological status including level of consciousness and orientation. Assess patient's risk for falls and implement fall prevention plan of care and interventions per hospital policy. Ensure arm band on, uncluttered walking paths in room, adequate room lighting, call light and overbed table within reach, bed in low position, wheels locked, side rails up per policy, and non-skid footwear provided. Outcome: Progressing Problem: Daily Care Goal: Daily care needs are met Description: Assess and monitor ability to perform self care and identify potential discharge needs. Outcome: Progressing Problem: Psychosocial Needs Goal: Demonstrates ability to cope with hospitalization/illness Description: Assess and monitor patients ability to cope with his/her illness. Outcome: Progressing Goal: Collaborate with patient/family/caregiver to identify patient specific goals for this hospitalization Outcome: Progressing Problem: Discharge Barriers Goal: Patient's discharge needs are met Description: Collaborate with interdisciplinary team and initiate plans and interventions as needed. Outcome: Progressing Problem: Aspiration - Risk of Goal: Absence of aspiration Outcome: Progressing Problem: Mobility - Impaired Goal: Able to achieve maximum mobility level Outcome: Progressing Problem: Mood - Altered Goal: Alleviation of anxiety Outcome: Progressing Goal: Decrease in depressive symptoms Outcome: Progressing Problem: THROMBOLYTIC COMPLICATION - RISK OF ANGIOEDEMA AND BLEEDING Goal: Absence of angioedema Outcome: Progressing Goal: Absence of bleeding Outcome: Progressing Problem: Tissue Perfusion - Cerebral, Altered Goal: Absence of continued neurologic deterioration signs and symptoms Outcome: Progressing Problem: Venous Thromboembolism - Risk of Goal: Absence of venous thromboembolism Outcome: Progressing Problem: Verbal Communication - Impaired Goal: Effective communication Outcome: Progressing Goal: Increased social interaction Outcome: Progressing Problem: Discharge Planning Goal: Knowledge of discharge instructions Outcome: Progressing * Juju Lenz OT - 01/23/2025 1:10 PM CDT 01/23/25 1400 Acute Inpatient OT Time Calculation OT Start Time 1310 OT Therapy Interruption (min) Orders received, chart reviewed. Attempted treatment session. Pt reports he just fell asleep and wants to take a nap. Educated Pt on importance and purpose of therapy, Pt continued to declined despite education that therapist may not be able to return. OT will attempt at later time/date as schedule allows and Pt is appropriate. * Caroline Fajardo RN - 01/23/2025 10:55 AM CDT 01/23/25 1055 Interdisciplinary Group Conference Team Members Present Case/Care management;Nursing Patient Current Status Paient current status Inpatient Barriers to Discharge Inpatient Review Barriers to Discharge Inpatient Other (Comment) Other follow up (Comment) Right sided weakness improving. [place] on, daily cares being completed. Ortho recommends wearing [place] and following up outpt with them. RD/PT/OT on scehdule. Tube feeds.NG tube R nare. Patient expects to be discharged to Patient expects to be discharged to: Inpatient Rehab Facility (IRF) (PT/OT Recs for Inpt Rehab. [facility] choice [facility] here today for assess/meet with Pt. Alan Barrett #2 chioce and then one SNF referral. Awaiting formal acceptance notfication. Updates sent.) * DONNIE Cruz - 01/23/2025 7:57 AM CDT Images from the original note were not included. TRAUMA PROGRESS NOTE DONNIE CRUZ, 01/23/2025, 7:[address] [facility] LEV[facility] TRAUMA CENTER ACUTE CARE SURGERY SERVICE: EMERGENCY SURGERY, TRAUMA, SURGICAL CRITICAL CARE [address] [place] [address] TO CONTACT PROVIDERS: Trauma Surgeon/Critical Care Snow Removing Supervisor MD: [id number] Emergency Surgery MD: [id number] Advanced Practice Provider - Trauma: [id number] Advanced Practice Provider - Emergency Surgery [id number] Name: Олег Watson Date of : 1955 Room/Bed: [facility]/ Date: 01/23/2025 Time: 7:58 AM CHIEF COMPLAINT: He doesn't like the neck brace ASSESSMENT: 69-year-old male who presents with Closed C2 fracture ([facility]HCC) Acute embolic stroke ([facility]) Fall PLAN: #Right upper extremity/Right lower extremity weakness on exam this AM ~ 1030AM #Blurry vision 01/20 STAT stroke, please see significant event note for more details. ASA 81mg daily Atorvastatin 80mg qhs Neuro checks q4h DIRECTOR OF MEDICARE to eval and treat Continuous telemetry 01/20 MRI C-spine/head- demonstrating acute L SV IC infarctions #Chronic C2 fracture Ortho Spine - Myat Activity: Maintain pauma J cervical collar at all times, ambulate as tolerated PT/OT to eval and treat Outpatient follow up with Dr. Montanez #DM History of uncontrolled diabetes A1C on admission 12.3 BS mid 200's past 24hr Continue ISS- increased to 0-8 units Increased Lantus 12U qhs (normally takes 12U) Will continue to closely monitor blood sugar during stay Dysphagia DIRECTOR OF MEDICARE follow Failed BS swallow with DIRECTOR OF MEDICARE today Strict NPO Non oral means for nutrition and medications per medical care team and as consistent with goals of care Oral care per protocol May consider completion of a video swallow study in the next 1-2 treatment session if symptoms persist Continued skilled ST for dysphagia management as well as motor speech treatment Nutrition Dietitian following TF with Glucerna 1.2 NICOLE via Keofeed at 20 mL/hr and advance by 15 mL/hr every 4 hours as toleratedto goal rate of 65 mL/hr. Free water flush: 50 mL every 4 hours. Provide 1 packet(s) of Prosource once daily Provide 100 mg Thiamine and MVI daily x 10 days Labs: BMP, Mg and Phos daily. Replete electrolytes as indicated. Weigh patient at least twice weekly. HTN SBP 151-180's Increased metoprolol 25mg BID Cont HEDGE FUND MANAGER lisinopril 5mg daily Cont Labetalol 20mg q6hr IV PRN SBP > 160 Added Hydralazine PRN PM&R Dr Vasquez Recommend PT and OT: working on strength, endurance, balance, and techniques to improve safety and independence with ADLs and mobility Recommend DIRECTOR OF MEDICARE: work on cognition, speech and swallow Will need diet advanced or PEG placed prior to discharge, education provided to patient and family would benefit from an acute rehabilitation program with PT/OT/DIRECTOR OF MEDICARE 3h/d, at least 5d/wk to improve endurance, mobility, activities of daily living, cognition, and swallowing as appropriate General Trauma Care Full code IMC VS q4 I&O q4 Cardiac monitoring Pain control Tylenol 650mg q4h PRN mild Sutherland 5mg q6h PRN mod Roxicodone 5mg q6h PRN severe Lidocaine patch DVT ppx: SCDs + Lovenox 30mg BID, started on 01/20. Patient does not Require DVT ppx at discharge Nutrition: strict NPO Fluids: none Antiemetics: zofran PRN Bowel regimen: LBM 01/22 Senokot BID scheduled GI ppx: protonix Pulmonary hygiene: IS q15min while awake Supplemental O2 Required: No Activity: as tolerated, maintain cervical collar at all times PT/OT: to eval and treat DIRECTOR OF MEDICARE: to eval and treat Electrolytes: Monitor Electrolytes and replace PRN Mg 1.8this AM; Mag ox 800mg X1 now K+ 3.7 & Phos 2.6 this AM; Kphos 500mg q4 Xs 3 Labs: CBC, BMP, Mag, Phos L/D/A: PIV Home medications: restarted, atorvastatin increased to 80mg qhs 01/20 Tertiary survey completed: 01/20 - right sided upper and lower weakness with blurry vision CODE: Full Code Disposition: Social work/case management for discharge/transfer dispostion, Disposition under consideration per patient assessment, Continue to re-assess. Therapy recommends IPR. Dr Vasquez following Patient is not medically stable for discharge. Potential barriers to acute rehab: Currently NPO with TF via Keofeed (needs diet advanced or PEG placed) SUBJECTIVE: Pt wants something to drink. He is looking forward to working with therapy today. Does not like buffy Ferrari BAUER, CP, SOB, ABD pain, N/V, N/T. Vision is still blurry. Significant Interval History: NAEO 01/21: keofed placed and TF started 01/23: Dr Vasquez following CURRENT MEDS: Scheduled Meds: aspirin 81 mg Tube Daily atorvastatin 80 mg Tube Nightly at bedtime enoxaparin 30 mg Subcutaneous Q12H insulin glargine 10 Units Subcutaneous Nightly at bedtime insulin lispro 0-8 Units Subcutaneous 4x Daily AC and at bedtime lansoprazole 30 mg Tube QAM AC lidocaine 1 patch Transdermal Q24H lisinopril 5 mg Tube Daily metoprolol tartrate 12.5 mg Tube BID multivitamin 1 tablet Tube Daily protein supplement 1 packet Feeding Tube Daily senna-docusate 1 tablet Tube BID thiamine 100 mg Tube Daily Continuous Infusions: TF diabetic w/Fiber 65 mL/hr (01/22/25 1751) PRN Meds:acetaminophen OR acetaminophen OR acetaminophen, HYDROcodone- acetaminophen, labetalol, naLOXone, ondansetron, oxyCODONE immediate release REVIEW OF SYSTEMS: Pertinent items are noted in HPI. OBJECTIVE: Vital Signs Last 24 Hours: Temp: [96.8 ??F (36 ??C)-100 ??F (37.8 ??C)] 98.2 ??F (36.8 ??C) Pulse: [82-108] 106 BP: (149-180)/(77-90) 157/90 Lines, Drains, Tubes: Output by Drain (mL) 01/21/25 0700 - 01/21/25 1459 01/21/25 1500 - 01/21/25 2259 01/21/25 2300 - 01/22/25 0659 01/22/25 0700 - 01/22/25 1459 01/22/25 1500 - 01/22/25 2259 01/22/25 2300 - 01/23/25 0659 01/23/25 0700 - 01/23/25 0758 Requested LDAs do not have output data documented. I/O totals for the last 24 hours: Intake/Output Summary (Last 24 hours) at 01/23/2025 0758 Last data filed at 01/23/2025 0600 Gross per 24 hour Intake 865 ml Output 1900 ml Net -1035 ml PHYSICAL EXAM: General appearance: Sitting up in bed. alert and oriented, oriented to person, place, and time, Neurological: Speech is slow but clear, 3/5 motor strength to RUE and RLE, right facial droop, GCS 15 Scalp: Skin intact, no lacerations or lesions noted Face: Structural elements stable, facial soft tissue normal Eyes: Tracking without difficulty, extra-ocular muscles intact, PERRL, patient relays blurry visionin both eyes, L > R Ears: Hearing impaired in bilateral ear, wearing head aids and able to hear Nose: Keofed present Mouth: Mucous membranes moist, no signficant deformity or malocclusion Neck: Trachea midline, Symmetric, [place] J collar in place Chest: No dyspnea or respiratory distress noted, sufficient air movement, broadly clear Heart: S1 and S2 normal, normal rate Abdomen: soft, nontender, nondistended Pelvis: stable pelvis, no signs of structural deformity Back exam: soft tissues broadly normal, no step-offs noted on thoracic or lumbar spine, no midline tenderness to cervical, thoracic, or lumbar regions Musculoskeletal: Motor and sensory grossly normal bilaterally to LUE and LLE, RUE and RLE with weakness when compared to LUE and LLE, Able to raised RUE off bed today. sensation and distal pulses intact to all extremities Skin: warm and dry Psychiatric: calm, pleasant and cooperative LABS: Recent Labs Lab 01/20/25 0235 01/20/25 1124 01/21/25 0340 01/22/25 0611 WBC 4.74 4.85 4.67 4.67 HGB 13.5 13.2 12.9 13.6 HCT 40.4 38.5 38.5 41.1 PLT 177 176 170 179 INR -- 1.0 -- -- PTT -- 33.8 -- -- NA 137 135* 138 136 K 3.6 4.2 4.1 3.9 CL 103 102 106 104 CO2 28.2 24.6 24.2 22.8 AGAP 5.8 8.4 7.8 9.2 BUN 10 12 14 13 CR 1.12 1.45* 1.29 1.14 GLU 194* 272* 241* 234* CA 9.5 9.2 9.1 9.1 TP -- 6.6 -- -- ALB -- 2.9* -- -- TBIL -- 0.3 -- -- ALKP -- 87 -- -- AST -- 16 -- -- ALT -- 19 -- -- MAGNESIUM 1.6 -- 1.6 1.7 PHOS 2.5 -- 2.8 2.5 PH ARTERIAL Date Value Ref Range Status 05/10/2018 7.36 7.35 - 7.45 Final PCO2 Date Value Ref Range Status 05/10/2018 40 35.0 - 45.0 MM HG Final PO2 Date Value Ref Range Status 05/10/2018 75 (L) 80.0 - 100.0 MM HG Final O2 SATURATION Date Value Ref Range Status 05/09/2018 100.0 90.0 - 100.0 % Final BICARB ARTERIAL Date Value Ref Range Status 05/10/2018 22.6 22.0 - 26.0 MEQ/L Final BASE DEFICIT Date Value Ref Range Status 05/10/2018 2.7 MEQ/L Final BE/BASE EXCESS Date Value Ref Range Status 05/09/2018 0.0 MEQ/L Final No results for input(s): ABORH in the last 168 hours. No results for input(s): CKTOTAL in the last 168 hours. CULTURES & SENSITIVITIES: No results found for this visit on 01/19/25 (from the past 2 weeks). No results found for this visit on 01/19/25 (from the past 2 weeks). PATHOLOGY: * Cannot find OR log * IMAGING: Radiology Results (Last 30 days) 01/21/25 1455 XR FEEDING TUBE PLCMENT Final result Impression: IMPRESSION: Successful postpyloric Chu fed placement. The attending radiologist was present in the department for all critical portions of the examination, has reviewed the images, and agrees with the resident's interpretation. Dictated By: Gilma Livingston MD on 01/21/2025 2:55 PM The attending radiologist has reviewed the image(s) and agrees with the content of this report. Referred By: ISAK KANG Interpreted By: Gilma Livingston MD, 01/21/2025 2:55 PM 01/21/25 1222 USE ECHOCARDIOGRAM Final result 01/20/25 1710 MRI CERV SPINE WO CON Final result Impression: IMPRESSION: 1. No convincing evidence of cord contusion, however significant artifact (predominantly related to patient motion) significantly limits this evaluation. 2. Chronic nonunited C2 fracture. Ordered By: OBINNA GIBBS Interpreted By: Bryan Vogel MD, 01/21/2025 7:05 AM 01/20/25 1658 MRI BRAIN WO CON Final result Impression: IMPRESSION: 1. Small acute left-sided strokes in the left basal ganglia and adjacent temporal lobe. Possible additional stroke in the inferomedial left temporal lobe. 2. Volume loss and probable small vessel disease. 3. Calvarial contour abnormality could be correlated with prior trauma. 4. Preliminary report was sent to Dr Gibbs by [employer] at 1825 hours on 01/20/2025. Referred By: ISAK KANG Interpreted By: Ryan Prasad MD, 01/20/2025 6:13 PM 01/20/25 1135 CTA HEAD+NECK Final result Impression: IMPRESSION: 1. No acute or significant cervicocerebral vascular abnormality identified. 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 See text. 2. 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 3. Additional chronic/nonurgent findings as described. Referred By: ISAK KANG Interpreted By: Atilio Varela MD, 01/20/2025 12:33 PM 01/20/[address] HEAD WO CON Final result Impression: IMPRESSION: 1. No acute intracranial process identified. 2. Cortical atrophy and small vessel disease. 3. 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 Clinical correlation required. Referred By: ISAK KANG Interpreted By: Atilio Varela MD, 01/20/2025 12:18 PM 01/19/25 2210 XR CERV SPINE LAT 1V Final result Impression: IMPRESSION: The known C2 fracture is not well depicted radiographically. No significant cortical step-off is seen involving the C2 vertebrae. Referred By: ISAK KANG Interpreted By: Alfie Davey MD, 01/20/2025 4:16 AM 01/19/252020 CTA NECK Edited Result - FINAL Addenda: [facility] [id number] exam was performed using one or more of the following dose reduction techniques: automated exposure control, adjustment of the mA and/or kV according to patient size, the use of iterative reconstruction technique, use of ALARA (As Low As Reasonably Achievable) and/or use of Image Gently techniques. Referred By: ISAK KANG Interpreted By: Maria G Gilbert MD, 01/21/2025 11:25 AM Signed by Maria G Gilbert MD on[01/21/25 1126] Impression: IMPRESSION: 1. Ununited comminuted fracture of the base of the odontoid with 3 to 4 mm anterior displacement of the odontoid with respect to the body of C2 with diastases on the fracture line with adjacent mildly displaced fracture fragments. There is widening of the interspinous distance at C1-C2. 2. No vascular injury or extravasation. 3. Atherosclerotic calcifications in the aortic arch and distal left common carotid artery extending into the origin of left external carotid artery and minimally at the origin of the left carotid bulb with less than 50% stenosis. No hemodynamically significant stenosis or aneurysm in the cervical internal carotid arteries. 4. 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 5. 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 6. origin of right posterior cerebral artery from the supraclinoid right internal carotid artery with developmental hypoplasia of the right T1 segment of the basilar tip. 7. Severe hypoplasia or less likely atherosclerotic stenosis of the A1 segment of right anterior cerebral artery. The right A2 segment is supplied predominantly from the left anterior cerebral artery via the anterior communicating artery. 8. Please see above report for the other findings. Referred By: ISAK KANG Interpreted By: Maria G Gilbert MD, 01/19/2025 8:47 PM 01/19/252020 CT CHEST+ABD+PEL W CON Final result Impression: IMPRESSION: 1. No CT evidence of acute injury to the solid organs or hollow viscus of the abdomen and pelvis. Referred By: ISAK KANG Interpreted By: Trina Ferrera DO, 01/19/2025 8:43 PM Cosigned by Emiliano Donaldson MD at 01/25/2025 4:41 PM CDT Associated attestation - Emiliano Donaldson MD - 01/25/2025 4:41 PM CDT I, MEILIANO DONALDSON MD, participated in the care of this patient today and discussed the plan of care with LOBO Pruett, who shared in this visit. I have reviewed the LOBO's documentation and agree with the findings except as I have documented. I personally spent 0 minutes, caring for this patient. EMILIANO DONALDSON MD * Lizette Gant RN - 01/23/2025 4:07 AM CDT Problem: Discharge Planning Goal: Knowledge of discharge instructions Outcome: Progressing Problem: Pain control/comfort Goal: Promote pain control/comfort Outcome: Progressing Problem: Skin integrity, Impaired-wound Goal: Absence of new skin breakdown Outcome: Progressing Goal: Evidence of wound healing Outcome: Progressing Problem: Skin integrity, Impaired-pressure injury/ulcer Goal: Absence of new skin breakdown Outcome: Progressing Goal: Evidence of pressure injury/ulcer healing Outcome: Progressing Problem: Skin integrity, at risk Goal: Absence of new skin breakdown Outcome: Progressing Problem: Moisture associated skin impairment Goal: Reduce moisture exposure Outcome: Progressing Goal: Evidence of wound healing Outcome: Progressing Goal: Evidence of pressure injury/ulcer healing Outcome: Progressing Goal: Absence of new skin breakdown Outcome: Progressing Problem: Reduced risk for falls/injury Goal: Reduced Risk for Falls/Injury Outcome: Progressing Goal: Reduced Risk of Confusion (Acute vs Chronic) Outcome: Progressing Goal: Reduced Risk of Symptomatic Depression Outcome: Progressing Goal: Reduced Risk of Altered Elimination Outcome: Progressing Goal: Reduced Risk of Dizziness/Vertigo/Balance Outcome: Progressing Goal: Reduced Risk of Polypharmacy Outcome: Progressing Problem: Pain Goal: Patient's pain/discomfort is manageable Description: Assess and monitor patient's pain using appropriate pain scale. Collaborate with interdisciplinary team and initiate plan and interventions as ordered. Re-assess patient's pain level 30 - 60 minutes after pain management intervention. Outcome: Progressing Problem: Safety Goal: Patient will be injury free during hospitalization Description: Assess and monitor vitals signs, neurological status including level of consciousness and orientation. Assess patient's risk for falls and implement fall prevention plan of care and interventions per hospital policy. Ensure arm band on, uncluttered walking paths in room, adequate room lighting, call light and overbed table within reach, bed in low position, wheels locked, side rails up per policy, and non-skid footwear provided. Outcome: Progressing Problem: Daily Care Goal: Daily care needs are met Description: Assess and monitor ability to perform self care and identify potential discharge needs. Outcome: Progressing Problem: Psychosocial Needs Goal: Demonstrates ability to cope with hospitalization/illness Description: Assess and monitor patients ability to cope with his/her illness. Outcome: Progressing Goal: Collaborate with patient/family/caregiver to identify patient specific goals for this hospitalization Outcome: Progressing Problem: Discharge Barriers Goal: Patient's discharge needs are met Description: Collaborate with interdisciplinary team and initiate plans and interventions as needed. Outcome: Progressing Problem: Aspiration - Risk of Goal: Absence of aspiration Outcome: Progressing Problem: Mobility - Impaired Goal: Able to achieve maximum mobility level Outcome: Progressing Problem: Mood - Altered Goal: Alleviation of anxiety Outcome: Progressing Goal: Decrease in depressive symptoms Outcome: Progressing Problem: THROMBOLYTIC COMPLICATION - RISK OF ANGIOEDEMA AND BLEEDING Goal: Absence of angioedema Outcome: Progressing Goal: Absence of bleeding Outcome: Progressing Problem: Tissue Perfusion - Cerebral, Altered Goal: Absence of continued neurologic deterioration signs and symptoms Outcome: Progressing Problem: Venous Thromboembolism - Risk of Goal: Absence of venous thromboembolism Outcome: Progressing Problem: Verbal Communication - Impaired Goal: Effective communication Outcome: Progressing Goal: Increased social interaction Outcome: Progressing Problem: Discharge Planning Goal: Knowledge of discharge instructions Outcome: Progressing * Ada Marie RD - 01/22/2025 2:23 PM CDT CLINICAL DIETITIAN NOTE Received physician consult for manage tube feed this date. RD currently following patient for TF management. Will continue to follow per policy. ADA MARIE RD, LDN * Caroline Fajardo RN - 01/22/2025 10:15 AM CDT 01/22/25 1014 Forms First Important Message from Medicare ([facility]) Signed Copy delivered * Veronika Gilliland PT - 01/22/2025 10:09 AM CDTSummary: PT eval PT Initial Evaluation Discharge Recommendation: Inpatient Rehab Patient is a good candidate for inpatient rehab as he remains motivated and demonstrates the ability to tolerate 3 hours of intense therapy per day. Patient was independent at baseline. In attempt toreturn to prior level of function, patient requires intense inpatient rehab to address following deficits: RUE weakness, RLE weakness, decreased coordination RUE/RLE, unsteady balance, slightly slurred speech, neck precaution limitations, gait deviations, increased fall risk that impact his independence with self-care participation, mobility/transfers, and overall safety/independence. Due to the acute care setting, 3 hours of therapy is not feasible to be completed daily. Activity Recommendation for zipper setter chainstitch: Up with min/mod assist x 2 for standpivot transfers, blockingof R knee as needed; up to chair TID 01/22/25 0900 Therapy Visit Ordering Provider Phylicia Howard NP PT Evaluation Completed on 01/22/25 Subjective RN approved therapy session. Patient was supine in bed upon entering room 726. Daughter arrived during session. Both were agreeable to therapy evaluations. Patient reports continued R sideweakness, but daughter states patient appears to have had had some improvement in his R sided movement and speech since admit. She plans to have patient transfer to rehab, and states he can return home with her upon his final discharge if needed. Reason for admission Pt presents after fall from bed at home. 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 While at hospital, pt found to have acute right sided weakness and blurry vision.MRI demonstrates: small acute left-sided strokes in the left basal ganglia, adjacent temporal lobe,possible additional stroke in the inferomedial left temporal lobe, volume loss and probable small ve ssel disease. ......PMH: Acute myocardial infarction, Ankle fracture, fracture left fibula, Coronary artery disease, Diabetes, DKA, HTN, Eustachian tube dysfunction, HLD, Hx of CABG, Microalbuminuria, Myocardial infarction, Non- rheumatic mitral regurgitation .........Therapy orders: eval and treat.. ..Activity as tolerated, up at jahaira with collar Verified Two Patient Identifiers Yes Patient consents to therapy Yes Acute Inpatient PT Time Calculation PT Start Time 0936 PT Stop Time 1009 PT Time Calculation (min) 33 min Precautions Spine Precautions Bending;Lifting;Twisting (neck precautions) Neck Brace Applied Yes ([place] collar) General Precautions Aspiration;Bed Alarm;Chair Alarm;Fall Risk Other mayda Jain, telemetry, IV access, male purewick, R side weakness Prior Function PLOF Comments Patient lives alone in a 1.5 story house, but resides on the main floor only. There are 2-3 steps to enter, no handrail. Bathroom has a tub/shower combo without a seat or grab bar, standard height toilet seat with vanity nearby for support. Patient owns a 2 wh/walker, but typically does not use any assistive devices. He states he is independent with all mobility, ADL's and IADL's, still drives and does errands. He reports no available assistance. Patient reports during the most recent fall he fell attempting to get out ofb bed. He reports another recent fall on the sidewalk lastweek, hitting his chest.........Daughter states that if necessary, her father can stay with her andthe daughter's fiance. They live in a 2 story house, but patient will reside on main floor. There are 4 steps with a handrail to enter. Bathroom is a tub/shower combo with standard toilet and vanity.Daughter works shift stacker as an RN, but her fiance will be home as needed for 17/05 supervision. Pain Pain No Activity Tolerance Endurance Quality Fair Limiting Factors to Endurance Acute deconditioning;Fatigue;Weakness Activity Tolerance Comments Patient limited by acute deconditioning and generalized weakness, as well as acute R sided strength deficits, unsteady balance Vision - Basic Assessment Current Vision Does not wear glasses Vision - Complex Assessment Additional Comments Patient reports good vision at baseline and does not wear glasses, but states current vision is blurry. He was able to read wall clock and name badge with slightly increased time,but states the print was blurry. Cognition Overall Cognitive Status WFL Arousal/Alertness Appropriate responses to stimuli Attention Span Appears intact Memory Appears intact Orientation Level Oriented X4 Following Commands Follows one step commands consistently Safety Judgment Decreased awareness of need for assistance Awareness of Errors Assistance required to identify errors made Deficits Decreased awareness of deficits Problem Solving Assistance required to identify errors made Comments Patient was alert, oriented, able to follow simple commands well. Patient was pleasant andcooperative, but did present with some decreased insight to deficits, with regard to balance awareness, required cues to improve initiation and sequencing of tasks. Patient also observed to have mildslurred speech, but much improved since admit per family. Motor Planning Impaired (Strength deficits of RUE/RLE) Perseveration Not present Initiation Appears intact Sensation Light Touch No apparent deficits Proprioception Proprioception Partial deficits in the RLE;Partial deficits in the LLE (Patient appears to have some baseline proprioceptive deficits bilateral LE's, has h/o diabetes, likely could be neuropathy. Gross proprioception intact.) Overall Extremity Assessment Lower Extremity Gross AROM: WFL's.....Gross coordination: Decreased RUE/RLE coordination secondary to R side weakness, decreased rapid alternating movements RLE Assessment RLE Comment Gross MMT: hip flexion: 2/5, knee extension: 3/5, knee flexion: 3- /5, ankle DF: 4+/5 LLE Assessment LLE Comment Gross MMT: 4+/5 Bed Mobility Supine to Sit Mod assist to right Other (Comment) HOB flat, cues to initiate log roll towards R side, use of LUE with bedrail, max cues for sequencing and initiation TRANSFERS Sit to Stand Min assist;Assist of 2 Bed to Chair Min assist;Assist of 2 Other (Comment) Transfers: Patient able to initiate well, weight shifts to LLE, support required for RUE, and blocking of R knee........Standpivot transfers: Pt. was able to take a few steps over to bedside chair with max cues, increased time. Cues to weight shift, assist to help advance and position RLE for foot placement and step length, blocking of R knee during single leg stance and WB (slight recurvatum noted). Pt. able to support body weight on RLE to take steps with LLE, but min assist x2 for balance and safety. Patient took 4-5 steps to bedside chair for pivot turn. Balance Sitting - Static CGA;Min Assist Sitting - Dynamic Mod Assist Standing - Static Min Assist;Assist of 2 Persons Standing - Dynamic Min Assist;Assist of 2 Persons Other (Comment) Sitting balance: initially required CGA/min assist, slight posterior lean but maintaining midline sitting. As patient fatigued, and with higher level dynamic sitting activities, patient required increased assist for balance support, requiring mod assist, exhibiting more heavy posterior lean, decreased positioning awareness or self-correction, poor trunk control with L and R lateral leans at times, cues required to assist with repositioning. Pt. also had limited RUE support throughout sitting trial...........Standing balance: Pt. able to support body weight in standing, only min assist x 2, but did require blocking of R knee at times (intermittent buckling), increased fall risk overall. Compenastes with weight shift to LLE when cued. Assessment Personal Factors/Comorbidities Impacting Care 3-4 personal factors/comorbidities Examination of Body Systems High (at least 4 Elements) Objectives of Body Systems Impaired bed mobility;Impaired transfers;Impaired ambulation;Impaired balance;Impaired stair negotiation;Decreased ADL status;Decreased UE strength;Decreased LE strength;Decreased endurance;Decreased fine motor coordination;Decreased high-level ADLs;Visual deficit;Decreased safe judgement Clinical Presentation of Patient Evolving and changing characteristics Complexity Level of Evaluation Moderate Prognosis Good PT Assess/Eval Other (Comment) Patient is a pleasant 69 y/o male who was admitted s/p fall, chronicC2 fx, acute L sided CVA. Patient was functionally independent and living alone at baseline. Currently he presents with acute R sided weakness of RUE and RLE. He has intact sensation, but decreased co ordination. He required increased assistance to complete functional tasks, with mod assist for bed mobility, and min assist of 2 for transfers. Patient also exhibits impaired sitting and standing balance, with R knee buckling and increased fall risk. Patient overall exhibits functional mobility deficits and decreased activity tolerance and overall independence compared to his baseline. Would highly recommend inpatient rehab placement to address the above deficits prior to returning home. Modified Marlena Score Pre-Morbid (Baseline) Score 0-6 0 Interval Daily Interval Score 0-6 4 Patient/Family Training Other (Comment) Patient was educated on neck precautions, pauma J collar, bed mobility, transfers, sitting/standing balance, positioning of RUE, therapy plan and discharge recommendations. Patient and daughter agreeable to rehab placement if needed. Discharge Recommendation PT Recommendation Inpatient rehab PT Equipment Recommended To Be Determined Plan PT Treatments/Interventions Gait Training;Manual Therapy;Therapeutic Exercises;Therapeutic Activities;Neuromuscular re-education;Patient/family training PT Frequency 5 times/week PT - Next Appointment 01/22/25 If this is the last treatment note,it will serve as the discharge summary Yes End of Session End of Session Safety Chair alarm set/activated;Call light within reach;Family/friend present with patient;Nursing aware of session;Transfer status education The below POC to be followed until 02/05/24 at that time POC will be re-assessed to ensure patient is making appropriate progression. Pt. will be able to perform supine to/from sitting at EOB with CGA to improve mobility. Pt. will be able to perform sit to/from standing with CGA using bridger walker, or least restrictive assistive device, to improve independence. Pt. will be able to ambulate 25-50 feet with Minimal assistance using bridger walker, or least restrictive assistive device, to help improve strength and functional independence. Pt. will be able to maintain static sitting balance for less than 5 minutes with Independent to improve independence. Pt. will be able to maintain dynamic sitting balance on soft surface with SBA to improve functionalmobility. Pt. will be able to maintain static standing balance less than 5 minutes with SBA using bridger walker, or least restrictive assistive device, to improve independence. Pt. will be able to maintain dynamic standing balance during side-stepping L/R and marching with CGA/minimal assist using bridger walker, or least restrictive assistive device, to improve functional mobility. Pt. will be able to ascend/descend 4 steps with Minimal assistance using handrail to increase strength and to safely access home at D/C. Education: Primary Learners Name: Олег Watson Primary Language of learner: [place] Patient Daughter was educated on stroke rehabilitation management precautions transfers ADLs balance bed mobility therapy plan safety adaptive skills joint protection. Education was completed one to one verbal hands-on demonstration return demonstration this date. Preference of learning new concepts one to one verbal hands-on demonstration return demonstration Barriers to education this date were none. Response to education this date verbalized understanding asks questions demos with verbal cues needs follow up needs assistance. * Pari Alvarado OT - 01/22/2025 10:09 AM CDTSummary: LAYLA Zhang OT Initial Evaluation Discharge Recommendation: Inpatient Rehab Activity Recommendation for zipper setter chainstitch: up to chair with min assist x2, blocking R knee or up with lift equipment 01/22/25 0936 Therapy Visit OT Received On 01/22/25 Reason for admission Pt presents after fall from bed at home. 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 While at hospital, pt found to have acute right sided weakness and blurry vision.MRI demonstrates: small acute left-sided strokes in the left basal ganglia, adjacent temporal lobe,possible additional stroke in the inferomedial left temporal lobe, volume loss and probable small ve ssel disease. ......PMH: Acute myocardial infarction, Ankle fracture, fracture left fibula, Coronary artery disease, Diabetes, DKA, HTN, Eustachian tube dysfunction, HLD, Hx of CABG, Microalbuminuria, Myocardial infarction, Non- rheumatic mitral regurgitation .........Therapy orders: eval and treat.. ..Activity as tolerated, up at jahaira with collar Ordering Provider Phylicia Howard NP Verified Two Patient Identifiers Yes Patient consents to therapy Yes Acute Inpatient OT Time Calculation OT Start Time 0936 OT Stop Time 1009 OT Time Calculation (min) 33 min Precautions Spine Precautions Bending;Lifting;Twisting Neck Brace Applied Yes General Precautions Aspiration;Bed Alarm;Chair Alarm;Fall Risk Other c-spine precautions with [place] J at all times, keofed, telemetry, purewick Subjective Subjective RN gave ok prior to therapy evaluations. Pt agreeable to therapy evaluations and provided PLOF information. Prior Function PLOF Comments Patient lives alone in a 1.5 story house, but resides on the main floor only. There are 2-3 steps to enter, no handrail. Bathroom has a tub/shower combo without a seat or grab bar, standard height toilet seat with vanity nearby for support. Patient owns a 2 wh/walker, but typically does not use any assistive devices. He states he is independent with all mobility, ADL's and IADL's, still drives and does errands. He reports no available assistance. Patient reports during the most recent fall he fell attempting to get out ofb bed. He reports another recent fall on the sidewalk lastweek, hitting his chest.........Daughter states that if necessary, her father can stay with her andthe daughter's fiance. They live in a 2 story house, but patient will reside on main floor. There are 4 steps with a handrail to enter. Bathroom is a tub/shower combo with standard toilet and vanity.Daughter works shift stacker as an RN, but her fiance will be home as needed for 24/7 supervision. Pain Pain No Objective Objective Pt seen in room 726. Pt in bed upon ent. Gait belt used for all functional transfers. Pt up in chair with call light nearby and chair alarm on upon ext. Daughter present in room for most ofsession. Activity Tolerance Endurance Quality Good Limiting Factors to Endurance Acute deconditioning;Fatigue;Weakness Vision - Basic Assessment Current Vision Does not wear glasses Vision - Complex Assessment Additional Comments Pt reporting new onset of blurry vision, but able to read clock and name badge with increased time. Pt able to identify numbers held up in all 4 visual quadrants with increased time for L upper quadrant. Cognition Overall Cognitive Status WFL Arousal/Alertness Appropriate responses to stimuli Attention Span Appears intact Memory Appears intact Orientation Level Oriented X4 Following Commands Follows one step commands consistently Safety Judgment Decreased awareness of need for assistance Awareness of Errors Assistance required to identify errors made Deficits Decreased awareness of deficits Problem Solving Assistance required to identify errors made Comments Patient was alert, oriented, able to follow simple commands well. Patient was pleasant andcooperative, but did present with some decreased insight to deficits, with regard to balance awareness, required cues to improve initiation and sequencing of tasks. Patient also observed to have mildslurred speech, but much improved since admit per family. RUE Assessment RUE Comment R sided weakness present. R gross grasp 3+/5. Able to complete pronation/supination. Ptable to fully extend fingers and radially abduct thumb with increased time. Elbow flexion/extension3+/5. Shoulder flexion 3/5. Slight shoulder subluxation present. Decreased gross motor and FM coordination. LUE Assessment LUE Comment WFL throughout the LUE for strength, ROM and coordination Hand Function Hand Dominance Left Gross Grasp Left;Functional Coordination Impaired Finger to Nose Eyes Open impaired R Ue Opposition impaired R hand Sensation Light Touch No apparent deficits ADL Eating/Feeding Assistance MIRELLA Eating/Feeding Deficit NPO Eating/Feeding Comment keofed Grooming Assistance Stand by;Sitting in chair Grooming Deficit Setup;Wash/dry face Grooming Comment using L hand UE Dressing Assistance Moderate;Sitting upright in bed UE Dressing Deficit Thread RUE LE Dressing Assistance Maximal;Sitting at EOB LE Dressing Deficit Don/doff R sock;Don/doff L sock Toileting Assistance Maximal Toileting Comment Purewick malfunctioning upon ent, with gown and bed pad soiled with urine. Pt requiring max assist for perineal hygiene. Assisted changing gown and out of soiled linens Bed Mobility Supine to Sit Mod assist to right Other (Comment) using log rolling technique using, reaching across with L UE and pushing with LLE Functional Transfers Sit to Stand Min assist;Assist of 2 Bed to Chair Min assist;Assist of 2 Functional Mobility Pt completed sit>stand from EOB with min assist x2 and completed bed.chair transfer with min assist x2 using handheld assist. Pt requires blocking of his R knee when weight bearing, but is able to attempt stepping with his R LE. Balance Sitting - Static CGA;Min Assist Sitting - Dynamic Mod Assist Standing - Static Min Assist;Assist of 2 Persons Standing - Dynamic Min Assist;Assist of 2 Persons Other (Comment) Sitting balance: initially required CGA/min assist, slight posterior lean but maintaining midline sitting. As patient fatigued, and with higher level dynamic sitting activities, patient required increased assist for balance support, requiring mod assist, exhibiting more heavy posterior lean, decreased positioning awareness or self-correction, poor trunk control with L and R lateral leans at times, cues required to assist with repositioning. Proprioception Proprioception Partial deficits in the RUE;Partial deficits in the RLE Assessment Occupational Profile and History Complexity Moderate (Expanded) Performance Skills Deficits Bathing/showering;Dressing;Feeding;Functional mobility;Personal hygieneand grooming;Safety and emergency maintenance;Toileting Performance Deficit Level Moderate (3-5 deficits) Clinical Decision Making Moderate (min/mod modifications) Complexity Level of Evaluation Moderate Prognosis Good OT Assess/Eval Other (Comment) Pt is a 69 year old male admitted s/p fall with type II odontoid fracture and acute embolic stroke. OT evaluation completed 01/22. Pt presents with R sided weakness, decreased R UE gross motor and FM coordination, decreased balance, acute on chronic decondiotning, decreased endurance and activity tolerance, and c-spine precautions impacting his ability to complete AdLs and functional mobility at baseline. Pt would benefit from skilled OT to address above. Pt would most benefit from inpatient rehab placement upon discharge for continued therapy. Modified Marlena Score Pre-Morbid (Baseline) Score 0-6 0 Interval Daily Interval Score 0-6 4 Patient/Family Training Other (Comment) Pt and daughter educated on therapy discharge recommendations for inpatient rehab placement and verbalized understanding. Discharge Recommendation OT Recommendation Inpatient rehab Plan OT Treatment/Intervention Self-care training;Therapeutic exercises;Therapeutic activities;Neuromuscular re-education;Patient/family training;Functional activity;Safety OT Frequency 6 times/week OT - Next Appointment 01/22/25 If this is the last treatment note, it will serve as the discharge summary Yes End of Session End of Session Safety Chair alarm set/activated;Call light within reach;Family/friend present with patient;Nursing aware of session;Transfer status education Education: Primary Learners Name: Олег Watson Primary Language of learner: Mosotho Patient was educated on precautions transfers ADLs balance bed mobility therapy plan safety energy conservation adaptive skills. Education was completed verbal this date. Preference of learning new concepts verbal Barriers to education this date were none. Response to education this date verbalized understanding needs reinforcement. The below POC to be followed until end date, at that time POC to be re-assessed and modified if needed Start. 01/22/25 End: 02/05/25 Pt will complete dressing with Minimal assistance sitting EOB or in chair to increase safety and independence with ADLs. Pt will complete all grooming and self-feeding with Modified [place] to increased safety and independence with ADLs. Pt will complete ADLs at sink with SBA to increase independence with ADLs. Pt will complete toileting hygiene and clothing management with Minimal assistance to increase safety and independence with ADLs. Pt to complete bathing with Minimal assistance seated in chair/EOB to increase independence with ADLs. Pt will complete bed mobility with SBA with HOB flat to increase safety and independence with functional transfers. Pt will complete transfers all surfaces to/from all surfaces with SBA using least restrictive device to increase functional mobility and transfers. Pt will participate within skilled therapy services for 20-30 minutes with 1-2 rest breaks to increase independence with ADLs and functional transfers. Pt will increase dynamic balance sitting on soft surface to complete ADLs with SBA for 5-10 minutesto increase safety and independence with ADLs and functional transfers. Pt will increase dynamic standing balance standing at sink/dressing completing ADLs with SBA with least restrictive device for 5-10 minutes to increase safety and independence with ADLs and functional transfers. Pt to increase R UE MMT to increase strength, safety and independence with ADLs and functional transfers. Pt will increase fine/gross motor coordination of R UE with completion of ADLS and motor control activities to increase safety and independence with ADLs and functional motor tasks. Pt will follow c-spine precautions with no verbal cuing to increase safety awareness and independence with ADLs and functional transfers. By: Pari Alvarado, JUAN ANTONIO, OTR/L; 01/22/25 * Caroline Fajardo RN - 01/22/2025 9:20 AM CDT PCP: DONNIE Pereira Pharmacy: [id number] [place], [place] Transportation: Will need Transportation set up when medically ready for d/c. D/c Dispo Goal: PT/OT Recs for InPt Rehab. Pt #1 choice is [facility] in [place], [place]. #[address] #3 is SNF referral to [facility]. Referrals have been sent and acceptance is pending. Risk for unplanned readmission: 11, Low. Social Drivers: + for Tobacco use. No other concerns at this time. 1150: PASRR completed, No level II required. Individual ID: [id number] Assessment ID: [id number] 01/22/25 0920 Referral Data Source of Information Patient Patient Information Primary Caregiver Self Current living Situation Alone Type of Residence Private residence Support System Immediate family (Daughter, Shaunna Watson.) Are you employed? Retired Recent Hospitalization Recent Hospitalization within 30 days No Legal Information Legal forms Power of Ice Cutter for health care (Pt daughter Shaunna Watson is POA.) Power of Ice Cutter Healthcare Status (On file, not activated. Rea Watson.) Baseline ADL's Functional Status Independent (Ind with ADLs/IADLs at baseline. Of recent, has required moderate assistance with ADLs.) Active DME Walker Behavior Oriented;Cooperative Communication Talks;Understands speaking;Understands Mosotho Current Services Being Provided Outpt therapy (None noted.) Home Health (None noted.) Other Services (None noted.) Psychosocial Need Indicator Mental health concerns No Diagnosis/prognosis resulting in poor adjustment or coping with illness No Diagnosis/prognosis with anticipated outcome of major lifestyle changes, including change in intermediate living environment No Complex Family concerns No Abuse and/or neglect of elder, adult or child No Psychiatric and/or substance abuse issues affecting current hospitalization No Homelessness with lack of safe discharge environment No Need for guardianship petition No Involuntary patient No DC screening tool This is a screening tool it does not take the place of a physical or occupational therapy evaluation. The screening is to screen the patient for what services and destination would be beneficial for patient for next level of care Conversation with the patient/family Will the patient be returning to prior living situation with no new identified needs? Yes Based on the screening the DC plan for consideration is: Patient expects to be discharged to: Other (Comment) (PT/OT Recs for IP Rehab. Pt agreeable to referrals being sent for [facility] and [address] Also agreeable to [facility] SNF referral being sent. Referrals sent as requested.) Adequate Resources Available Adequate Resources Yes [place] Only - Criminal Background check [place] only - Is patient going to long-term? No * DONNIE Cruz - 01/22/2025 8:09 AM CDT Images from the original note were not included. TRAUMA PROGRESS NOTE DONNIE CRUZ, 01/22/2025, 8:[address] [facility] LEVEL 1 TRAUMA CENTER ACUTE CARE SURGERY SERVICE: EMERGENCY SURGERY, TRAUMA, SURGICAL CRITICAL CARE [address] [place] [address] TO CONTACT PROVIDERS: Trauma Surgeon/Critical Care Snow Removing Supervisor MD: [id number] Emergency Surgery MD: [id number] Advanced Practice Provider - Trauma: [id number] Advanced Practice Provider - Emergency Surgery [id number] Name: Олег Watson Date of : 1955 Room/Bed: [facility] Date: 01/22/2025 Time: 8:09 AM CHIEF COMPLAINT: wants to eat ASSESSMENT: 69-year-old male who presents with Closed C2 fracture ([facility] HHS/HCC) Acute embolic stroke ([facility] HHS/HCC) Fall PLAN: #Right upper extremity/Right lower extremity weakness on exam this AM ~ 1030AM #Blurry vision 01/20 STAT stroke, please see significant event note for more details. ASA 81mg daily Atorvastatin 80mg qhs Neuro checks q4h DIRECTOR OF MEDICARE to eval and treat Continuous telemetry 01/20 MRI C-spine/head- demonstrating acute L SV IC infarctions #Chronic C2 fracture Ortho Spine - Lisseth Activity: Maintain pauma J cervical collar at all times, ambulate as tolerated PT/OT to eval and treat Outpatient follow up with Dr. Montanez #DM History of uncontrolled diabetes A1C on admission 12.3 BS mid 200's past 24hr Continue ISS Increased Lantus 10U qhs (normally takes 12U) Will continue to closely monitor blood sugar during stay Dysphagia DIRECTOR OF MEDICARE follow Failed BS swallow with DIRECTOR OF MEDICARE today Strict NPO Non oral means for nutrition and medications per medical care team and as consistent with goals of care Oral care per protocol May consider completion of a video swallow study in the next 1-2 treatment session if symptoms persist Continued skilled ST for dysphagia management as well as motor speech treatment Nutrition Dietitian following TF with Glucerna 1.2 NICOLE via Keofeed at 20 mL/hr and advance by 15 mL/hr every 4 hours as toleratedto goal rate of 65 mL/hr. Free water flush: 50 mL every 4 hours. Provide 1 packet(s) of Prosource once daily Provide 100 mg Thiamine and MVI daily x 10 days Labs: BMP, Mg and Phos daily. Replete electrolytes as indicated. Weigh patient at least twice weekly. General Trauma Care Full code IMC VS q4 I&O q4 Cardiac monitoring Pain control Tylenol 650mg q4h PRN mild [place] 5mg q6h PRN mod Roxicodone 5mg q6h PRN severe Lidocaine patch DVT ppx: SCDs + Lovenox 30mg BID, started on 01/20. Patient does not Require DVT ppx at discharge Nutrition: strict NPO Fluids: none Antiemetics: zofran PRN Bowel regimen: LBM HEDGE FUND MANAGER; + flatus Senokot BID scheduled MOM X1 now GI ppx: protonix Pulmonary hygiene: IS q15min while awake Supplemental O2 Required: No Activity: as tolerated, maintain cervical collar at all times PT/OT: to eval and treat DIRECTOR OF MEDICARE: to eval and treat Electrolytes: Monitor Electrolytes and replace PRN K+ 3.9; Mg 1.7; phos 2.5 Mag 400mg X1; K phos 500mg q4hr X3 Labs: CBC, BMP, Mag, Phos L/D/A: PIV Home medications: restarted, atorvastatin increased to 80mg qhs 01/20 Tertiary survey completed: 01/20 - right sided upper and lower weakness with blurry vision CODE: Full Code Disposition: Social work/case management for discharge/transfer dispostion, Disposition under consideration per patient assessment, Continue to re-assess. Patient is not medically stable for discharge. PT/OT eval. Dysphagia- Keofed placed yesterday. CM following SUBJECTIVE: Pt wants to eat. He understands the need for tube currently. He is hoping to work with therapy today. He feels as if his left side is stronger today than yesterday. He denies BAUER, CP, SOB, N/V, N/T. Significant Interval History: NAEO. CURRENT MEDS: Scheduled Meds: aspirin 81 mg Oral Daily atorvastatin 80 mg Oral Nightly at bedtime enoxaparin 30 mg Subcutaneous Q12H insulin glargine 10 Units Subcutaneous Nightly at bedtime insulin lispro 0-6 Units Subcutaneous Q6H lidocaine 1 patch Transdermal Q24H lisinopril 5 mg Oral Daily metoprolol succinate ER 25 mg Oral Daily multivitamin 1 tablet Tube Daily pantoprazole EC 40 mg Oral Daily protein supplement 1 packet Feeding Tube Daily senna-docusate 1 tablet Oral BID thiamine 100 mg Tube Daily Continuous Infusions: TF diabetic w/Fiber 65 mL/hr (01/22/25 0600) PRN Meds:acetaminophen OR acetaminophen OR acetaminophen, HYDROcodone- acetaminophen, naLOXone, ondansetron, oxyCODONE immediate release REVIEW OF SYSTEMS: Pertinent items are noted in HPI. OBJECTIVE: Vital Signs Last 24 Hours: Temp: [97.4 ??F (36.3 ??C)-98.6 ??F (37 ??C)] 97.6 ??F (36.4 ??C) Pulse: [70-81] 75 Resp: [16-20] 20 BP: (121-164)/(68-76) 152/70 Lines, Drains, Tubes: Output by Drain (mL) 01/20/25 0700 - 01/20/25 1459 01/20/25 1500 - 01/20/25 2259 01/20/25 2300 - 01/21/25 0659 01/21/25 0700 - 01/21/25 1459 01/21/25 1500 - 01/21/25 2259 01/21/25 2300 - 01/22/25 0659 01/22/25 0700 - 01/22/25 0809 Patient has no LDAs of requested type attached. I/O totals for the last 24 hours: Intake/Output Summary (Last 24 hours) at 01/22/2025 0809 Last data filed at 01/22/2025 0600 Gross per 24 hour Intake 370 ml Output 1450 ml Net -1080 ml PHYSICAL EXAM: General appearance: alert and oriented, oriented to person, place, and time, Neurological: Speech is slow but clear, 3/5 motor strength to RUE and RLE, right facial droop, GCS 15 Scalp: Skin intact, no lacerations or lesions noted Face: Structural elements stable, facial soft tissue normal Eyes: Tracking without difficulty, extra-ocular muscles intact, PERRL, patient relays blurry visionin both eyes, L > R Ears: Hearing impaired in bilateral ear, wearing head aids and able to hear Nose: Nasal septum midline, no rhinorrhea or epistaxis Mouth: Mucous membranes moist, no signficant deformity or malocclusion Neck: Trachea midline, Symmetric, [place] J collar in place Chest: No dyspnea or respiratory distress noted, sufficient air movement, broadly clear Heart: S1 and S2 normal, normal rate Abdomen: soft, nontender, nondistended Pelvis: stable pelvis, no signs of structural deformity Back exam: soft tissues broadly normal, no step-offs noted on thoracic or lumbar spine, no midline tenderness to cervical, thoracic, or lumbar regions Musculoskeletal: Motor and sensory grossly normal bilaterally to LUE and LLE, RUE and RLE with weakness when compared to LUE and LLE, Able to raised RUE off bed today. sensation and distal pulses intact to all extremities Skin: warm and dry Psychiatric: calm, pleasant and cooperative. LABS: Recent Labs Lab 01/20/25 0235 01/20/25 1124 01/21/25 0340 01/22/25 0611 WBC 4.74 4.85 4.67 4.67 HGB 13.5 13.2 12.9 13.6 HCT 40.4 38.5 38.5 41.1 PLT 177 176 170 179 INR -- 1.0 -- -- PTT -- 33.8 -- -- NA 137 135* 138 136 K 3.6 4.2 4.1 3.9 CL 103 102 106 104 CO2 28.2 24.6 24.2 22.8 AGAP 5.8 8.4 7.8 9.2 BUN 10 12 14 13 CR 1.12 1.45* 1.29 1.14 GLU 194* 272* 241* 234* CA 9.5 9.2 9.1 9.1 TP -- 6.6 -- -- ALB -- 2.9* -- -- TBIL -- 0.3 -- -- ALKP -- 87 -- -- AST -- 16 -- -- ALT -- 19 -- -- MAGNESIUM 1.6 -- 1.6 1.7 PHOS 2.5 -- 2.8 2.5 PH ARTERIAL Date Value Ref Range Status 05/10/2018 7.36 7.35 - 7.45 Final PCO2 Date Value Ref Range Status 05/10/2018 40 35.0 - 45.0 MM HG Final PO2 Date Value Ref Range Status 05/10/2018 75 (L) 80.0 - 100.0 MM HG Final O2 SATURATION Date Value Ref Range Status 05/09/2018 100.0 90.0 - 100.0 % Final BICARB ARTERIAL Date Value Ref Range Status 05/10/2018 22.6 22.0 - 26.0 MEQ/L Final BASE DEFICIT Date Value Ref Range Status 05/10/2018 2.7 MEQ/L Final BE/BASE EXCESS Date Value Ref Range Status 05/09/2018 0.0 MEQ/L Final No results for input(s): ABORH in the last 168 hours. No results for input(s): CKTOTAL in the last 168 hours. CULTURES & SENSITIVITIES: No results found for this visit on 01/19/25 (from the past 2 weeks). No results found for this visit on 01/19/25 (from the past 2 weeks). PATHOLOGY: * Cannot find OR log * IMAGING: Radiology Results (Last 30 days) 01/21/25 1455 XR FEEDING TUBE PLCMENT Preliminary result This result has not been signed. Information might be incomplete. Impression: IMPRESSION: Successful postpyloric [place] fed placement. The attending radiologist was present in the department for all critical portions of the examination, has reviewed the images, and agrees with the resident's interpretation. Dictated By: Gilma Livingston MD on 01/21/2025 2:55 PM 01/21/25 1222 USE ECHOCARDIOGRAM Final result 01/20/25 1710 MRI CERV SPINE WO CON Final result Impression: IMPRESSION: 1. No convincing evidence of cord contusion, however significant artifact (predominantly related to patient motion) significantly limits this evaluation. 2. Chronic nonunited C2 fracture. Ordered By: OBINNA GIBBS Interpreted By: Bryan Vogel MD, 01/21/2025 7:05 AM 01/20/25 1658 MRI BRAIN WO CON Final result Impression: IMPRESSION: 1. Small acute left-sided strokes in the left basal ganglia and adjacent temporal lobe. Possible additional stroke in the inferomedial left temporal lobe. 2. Volume loss and probable small vessel disease. 3. Calvarial contour abnormality could be correlated with prior trauma. 4. Preliminary report was sent to Dr Gibbs by [employer] at 1825 hours on 01/20/2025. Referred By: ISAK KANG Interpreted By: Ryan Prasad MD, 01/20/2025 6:13 PM 01/20/25 1135 CTA HEAD+NECK Final result Impression: IMPRESSION: 1. No acute or significant cervicocerebral vascular abnormality identified. 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 See text. 2. 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 3. Additional chronic/nonurgent findings as described. Referred By: ISAK KANG Interpreted By: Atilio Varela MD, 01/20/2025 12:33 PM 01/20/[address] HEAD WO CON Final result Impression: IMPRESSION: 1. No acute intracranial process identified. 2. Cortical atrophy and small vessel disease. 3. 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 Clinical correlation required. Referred By: ISAK KANG Interpreted By: Atilio Varela MD, 01/20/2025 12:18 PM 01/19/25 2210 XR CERV SPINE LAT 1V Final result Impression: IMPRESSION: The known C2 fracture is not well depicted radiographically. No significant cortical step-off is seen involving the C2 vertebrae. Referred By: ISAK KANG Interpreted By: Alfie Davey MD, 01/20/2025 4:16 AM 01/19/252020 CTA NECK Edited Result - FINAL Addenda: [employer] [facility] [address], [place] [address] exam was performed using one or more of the following dose reduction techniques: automated exposure control, adjustment of the mA and/or kV according to patient size, the use of iterative reconstruction technique, use of ALARA (As Low As Reasonably Achievable) and/or use of Image Gently techniques. Referred By: ISAK KANG Interpreted By: Maria G Gilbert MD, 01/21/2025 11:25 AM Signed by Maria G Gilbert MD on[01/21/25 1126] Impression: IMPRESSION: 1. Ununited comminuted fracture of the base of the odontoid with 3 to 4 mm anterior displacement of the odontoid with respect to the body of C2 with diastases on the fracture line with adjacent mildly displaced fracture fragments. There is widening of the interspinous distance at C1-C2. 2. No vascular injury or extravasation. 3. Atherosclerotic calcifications in the aortic arch and distal left common carotid artery extending into the origin of left external carotid artery and minimally at the origin of the left carotid bulb with less than 50% stenosis. No hemodynamically significant stenosis or aneurysm in the cervical internal carotid arteries. 4. 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 5. 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 6. origin of right posterior cerebral artery from the supraclinoid right internal carotid artery with developmental hypoplasia of the right T1 segment of the basilar tip. 7. Severe hypoplasia or less likely atherosclerotic stenosis of the A1 segment of right anterior cerebral artery. The right A2 segment is supplied predominantly from the left anterior cerebral artery via the anterior communicating artery. 8. Please see above report for the other findings. Referred By: ISAK KANG Interpreted By: Maria G Gilbert MD, 01/19/2025 8:47 PM 01/19/252020 CT CHEST+ABD+PEL W CON Final result Impression: IMPRESSION: 1. No CT evidence of acute injury to the solid organs or hollow viscus of the abdomen and pelvis. Referred By: ISAK KANG Interpreted By: Trina Ferrera DO, 01/19/2025 8:43 PM Cosigned by Emiliano Donaldson MD at 01/23/2025 9:08 PM CDT Associated attestation - Emiliano Donaldson MD - 01/23/2025 9:08 PM CDT I, EMILIANO DONALDSON MD, participated in the care of this patient today and discussed the plan of care with LOBO Pruett, who shared in this visit. I have reviewed the LOBO's documentation and agree with the findings except as I have documented. I personally spent 0 minutes, caring for this patient. EMILIANO DONALDSON MD * Griselda Welch RN - 01/21/2025 5:05 PM CDTSummary: NURSING CARE PLAN Problem: Discharge Planning Goal: Knowledge of discharge instructions Outcome: Progressing Problem: Pain control/comfort Goal: Promote pain control/comfort Outcome: Progressing Problem: Skin integrity, Impaired-wound Goal: Absence of new skin breakdown Outcome: Progressing Goal: Evidence of wound healing Outcome: Progressing Problem: Skin integrity, Impaired-pressure injury/ulcer Goal: Absence of new skin breakdown Outcome: Progressing Goal: Evidence of pressure injury/ulcer healing Outcome: Progressing Problem: Skin integrity, at risk Goal: Absence of new skin breakdown Outcome: Progressing Problem: Moisture associated skin impairment Goal: Reduce moisture exposure Outcome: Progressing Goal: Evidence of wound healing Outcome: Progressing Goal: Evidence of pressure injury/ulcer healing Outcome: Progressing Goal: Absence of new skin breakdown Outcome: Progressing Problem: Reduced risk for falls/injury Goal: Reduced Risk for Falls/Injury Outcome: Progressing Goal: Reduced Risk of Confusion (Acute vs Chronic) Outcome: Progressing Goal: Reduced Risk of Symptomatic Depression Outcome: Progressing Goal: Reduced Risk of Altered Elimination Outcome: Progressing Goal: Reduced Risk of Dizziness/Vertigo/Balance Outcome: Progressing Goal: Reduced Risk of Polypharmacy Outcome: Progressing Problem: Pain Goal: Patient's pain/discomfort is manageable Description: Assess and monitor patient's pain using appropriate pain scale. Collaborate with interdisciplinary team and initiate plan and interventions as ordered. Re-assess patient's pain level 30 - 60 minutes after pain management intervention. Outcome: Progressing Problem: Safety Goal: Patient will be injury free during hospitalization Description: Assess and monitor vitals signs, neurological status including level of consciousness and orientation. Assess patient's risk for falls and implement fall prevention plan of care and interventions per hospital policy. Ensure arm band on, uncluttered walking paths in room, adequate room lighting, call light and overbed table within reach, bed in low position, wheels locked, side rails up per policy, and non-skid footwear provided. Outcome: Progressing Problem: Daily Care Goal: Daily care needs are met Description: Assess and monitor ability to perform self care and identify potential discharge needs. Outcome: Progressing Problem: Psychosocial Needs Goal: Demonstrates ability to cope with hospitalization/illness Description: Assess and monitor patients ability to cope with his/her illness. Outcome: Progressing Goal: Collaborate with patient/family/caregiver to identify patient specific goals for this hospitalization Outcome: Progressing Problem: Discharge Barriers Goal: Patient's discharge needs are met Description: Collaborate with interdisciplinary team and initiate plans and interventions as needed. Outcome: Progressing Problem: Aspiration - Risk of Goal: Absence of aspiration Outcome: Progressing Problem: Mobility - Impaired Goal: Able to achieve maximum mobility level Outcome: Progressing Problem: Mood - Altered Goal: Alleviation of anxiety Outcome: Progressing Goal: Decrease in depressive symptoms Outcome: Progressing Problem: THROMBOLYTIC COMPLICATION - RISK OF ANGIOEDEMA AND BLEEDING Goal: Absence of angioedema Outcome: Progressing Goal: Absence of bleeding Outcome: Progressing Problem: Tissue Perfusion - Cerebral, Altered Goal: Absence of continued neurologic deterioration signs and symptoms Outcome: Progressing Problem: Venous Thromboembolism - Risk of Goal: Absence of venous thromboembolism Outcome: Progressing Problem: Verbal Communication - Impaired Goal: Effective communication Outcome: Progressing Goal: Increased social interaction Outcome: Progressing Problem: Discharge Planning Goal: Knowledge of discharge instructions Outcome: Progressing * MARIO Dutton - 01/21/2025 5:02 PM CDT DIRECTOR OF MEDICARE Initial Stroke Evaluation Diet Recommendation: NPO - Strict Recommendations: Non oral means for nutrition and medications per medical care team and as consistent with goals of care Oral care per protocol May consider completion of a video swallow study in the next 1-2 treatment session if symptoms persist Continued skilled ST for dysphagia management as well as motor speech treatment Summary Statement: This patient presents with clinical signs of oropharyngeal dysphagia as well as mild to moderate dysarthria. Patient with clinical signs of aspiration with limited trials of puree solids and ice chips this date. If symptoms persist, may consider completion of a video swallow study to formally evaluate swallow safety. Patient reports his expressive and receptive language skills are commensurate with his baseline; score of 92/100 on the MAST this date. Objective: This patient was seen at bedside for initial swallowing evaluation and language evaluation per stroke order set. Patient accepted limited trials of ice chips and pureed solid consistencies. Oral mechanism--Tongue protruded to midline and retracted and lateralized with fair strength and range. Lips protruded and retracted with reduced strength and range. Fair range of motion of jaw. Velum elevated symmetrically. There was right sided facial droop. Patient is edentulous. Patient's voicewas hoarse yet with adequate volume. Cough effort was clinically adequate. Patient with mild to moderate dysarthria at the sentence and conversational level. Oral phase--Adequate lip seal around spoon. Extended yet complete anterior- posterior transit of bolus within oral cavity. No anterior leakage or spillage and no oral holding or pocketing observed. Pharyngeal phase--Clinically delayed, and weak trigger of the pharyngeal swallow. Clinical signs ofaspiration observed with ice chips such as immediate and delayed coughing. Reports of globus sensation as well as multiple repeat swallows were observed with limited trials of puree solids. Further trials were deferred due to safety concerns. Objective: This patient was seen at bedside for aphasia testing. The [place] Aphasia Screening Test was administered with the following results: EXPRESSIVE INDEX: Namin out of 10 Automatic Speech: 10 out of 10 Repetition: 10 out of 10 Writin out of 10 Verbal Fluency: 10 out of 10 Expressive Subscale: 46 out of 50 RECEPTIVE INDEX: Yes/No Index: 20 out of 20 Object Recognition: 10 out of 10 Following Instructions: 10 out of 10 Reading Instructions: 6 out of 10 Receptive Subscale: 46 out of 50 Total Score: 92 out of 100 Patient reports his current expressive and receptive language skills are commensurate with his baseline function. Patient reported difficulties with reading and writing tasks due to not having his appropriate vision wear. Patient with no paraphasia or perseveration through evaluation. 01/21/25 0900 Therapy Visit DIRECTOR OF MEDICARE Received on 01/20/25 DIRECTOR OF MEDICARE Evaluation Completed on 01/21/25 Subjective Patient seen alert and upright in bed. Patient very pleasant. 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 While at hospital, pt with right sided weakness and blurry vision. MRI demonstrates: small acute left-sided strokes in the left basal ganglia, adjacent temporal lobe, possible additional stroke in the inferomedial left temporal lobe, volume loss and probable small vessel disease. Living situation Home Mental status Alert;Responsive;Cooperative Verified Two Patient Identifiers Yes Patient consents to Therapy Yes Inpatient DIRECTOR OF MEDICARE Time Calculation DIRECTOR OF MEDICARE Start Time 0820 DIRECTOR OF MEDICARE Stop Time 0850 DIRECTOR OF MEDICARE Time Calculation (min) 30 min Precautions Precautions Aspiration;Neck brace;Stroke protocol Instructed on Precautions Yes;Needs reinforcement and education;Verbalizes understanding Pain Pain Patient does not demonstrate pain behaviors DIRECTOR OF MEDICARE Recommendations Recommended Diet Change No Previous Diet NPO Recommended Solid Diet NPO Transitional Food Permitted No Recommended Liquid Consistency NPO Recommended Medication Form IV;Feeding tube Understanding of information was judged to be Fair by patient Results/Recommendations discussed with RNMD, patient Plan DIRECTOR OF MEDICARE Treatments/Interventions Swallowing treatment;Motor speech DIRECTOR OF MEDICARE Frequency 5 times/week DIRECTOR OF MEDICARE Next Appointment 01/21/25 If this is the last treatment note, it will serve as the discharge summary Yes End of Session End of Session Safety Call light within reach;Bed alarm set/activated;Nursing aware of session * Woody Sosa Shayne, RD - 01/21/2025 3:49 PM CDT CLINICAL DIETITIAN ASSESSMENT NUTRITION ASSESSMENT Past Medical History: Diagnosis Date Acute myocardial infarction ([facility]) Ankle fracture Closed; fracture left fibula Chest pain Closed fracture of distal end of fibula 05/18/2013 Date Onset: 05/18/2013 Coronary artery disease Diabetes ([facility]) Diabetes mellitus, type 2 ([facility]) Diabetic ketoacidosis without coma associated with diabetes mellitus due to underlying condition ([facility]) 03/19/2023 DKA (diabetic ketoacidosis) ([facility]) 03/19/2023 Essential hypertension 07/26/2018 Eustachian tube dysfunction 06/13/2015 Date Onset: 06/13/2015 HLD (hyperlipidemia) Hx of CABG Microalbuminuria Myocardial infarction ([facility]) 07/11/2018 Non-rheumatic mitral regurgitation Noncompliance with medication regimen 12/24/2021 Situational stress 06/13/2015 Initial History (01/21/2025): Remote Registered Dietitian (RD) completing an initial assessment secondary to physician consult for manage tube feedings. Patient is a 69-year-old male admitted secondary to Fall [W19.XXXA] C2 cervical fracture ([facility]) [S12.100A] Closed C2 fracture ([facility]) [S12.100A]. Patient admitted on 01/19/25 after a ground level fall with stroke. Has a spinal fracture; orthopedic team, trauma following. DIRECTOR OF MEDICARE recommends NPO due toswallowing difficulty. Is to receive a tube feeding. Patient underwent keofeed placement today per nurse practitioner (Radha Killian NP). Weight history (01/21/2025): Patient's daughter reports patient did have some weight loss over a year ago, but has stabilized over the last year. Reports weight typically is around 200 lbs (90.9 kg). Per EHR, weight has been generally consistent over the last year. Noted a slight gain of 5.9 kg (6.3%) since January 2024. 01/26/24: 87.5 kg 7/3/24: 88 kg 06/01/24: 91.6 kg 07/18/24: 95.3 kg 10/17/24: 95.3 kg 11/01/24: 93.4 kg 01/19/25: 93.4 kg Diet history (01/21/2025): Patient's daughter reports patient ate very well prior to admission. Has 2-3 meals per day and typically eats 100% of meals. Says patient reports if they eat two meals per day, will usually supplement with a lot of snacks. Patient reports they typically eat hash browns, eggs, sausage, and a pot of coffee for breakfast. Food allergies/intolerances: NKFA per EHR Cultural/Alevism food preferences: None reported in EHR Food Insecurity: No Food Insecurity (01/21/2025) Hunger Vital Sign Worried About Running Out of Food in the Last Year: Never true Ran Out of Food in the Last Year: Never true Cardiorespiratory: in room air; MAP > 65 mmHg over the past 24 hours Neuro: Alert/oriented x4 per EHR Edema: no edema noted per EHR GI: abdomen WDL, soft, and flat with positive bowel sounds per planer chain offbearer; no BM documented this admission Chewing/swallowing problems: DIRECTOR OF MEDICARE evaluation pending Skin: deep tissue injury on right heel Nutrition-focused physical findings: Unable to complete a physical exam at this time due to RDN working remotely. Labs: Reviewed. No nutrition-related concerns noted at this time. Recent Labs Lab 01/20/25 0617 01/20/25 1113 01/20/25 1240 01/20/25 1734 01/20/25 2030 01/21/25 0544 01/21/25 1349 GLUCOSEPOC 204* 320* 283* 220* 207* 253* 228* Recent Labs Lab 01/20/25 0235 01/20/25 1124 01/21/25 0340 NA 137 135* 138 K 3.6 4.2 4.1 MAGNESIUM 1.6 -- 1.6 PHOS 2.5 -- 2.8 BUN 10 12 14 CR 1.12 1.45* 1.29 GFREST 72* 52* 60* GLU 194* 272* 241* TRI -- -- 137 HGB A1C Date Value Ref Range Status 01/19/2025 12.3 (H) <5.7 % Final 05/03/2024 12.8 % Final Meds: Reviewed. No nutrition-related concerns noted at this time. aspirin 81 mg Oral Daily atorvastatin 80 mg Oral Nightly at bedtime enoxaparin 30 mg Subcutaneous Q12H insulin glargine 5 Units Subcutaneous Nightly at bedtime insulin lispro 0-6 Units Subcutaneous Q6H lidocaine 1 patch Transdermal Q24H lisinopril 5 mg Oral Daily metoprolol succinate ER 25 mg Oral Daily pantoprazole EC 40 mg Oral Daily senna-docusate 1 tablet Oral BID sodium chloride 100 mL/hr at 01/21/25 1548 Anthropometrics: Admission weight: 93.4 kg (Date: 01/19/25; Method: Stated) Last 5 Recorded Weights 01/19/25191301/19/251914 Weight: 93.4 kg (206 lb) 93.4 kg (206 lb) Weight status: No new weight recorded since admission on 01/19/25. Height: 180.3 cm Actual Body Weight (ABW): 93.4 kg Rogers Body Weight (IBW): 78 kg (ABW is 120% of IBW) Usual Body Weight (UBW): 90.9 kg (ABW is 103% of UBW) Dosing Weight (DW): 93.4 kg Body Mass Index (BMI): 28.7 kg/m?? (WNL for age) Estimated Nutrient Needs: Calories: 3143-1308 kcal/day based on Levy-St Jeor x 1-1.25 Protein: 94-117 gm/day based on 1.2-1.5 gm/kg, using IBW Carbohydrate: 216-270 gm/day based on 50% of total kcal from carbohydrate Fluid: 1500 mL/day based on minimum intake recommendation for older adults Current diet order: Diet NPO effective now Current diet appropriate? Yes; pending DIRECTOR OF MEDICARE evaluation. Current intake sufficient to meet nutritional needs? No. Today is day 2 of NPO/CL status. Reason/Indication for NPO/CL: DIRECTOR OF MEDICARE recommendations post- stroke. Fluid intake appears adequate for hydration. Pain affecting PO intake? N/A Nutrition Education: no needs identified at this time NUTRITION DIAGNOSIS Inadequate energy and protein intake related to inability to consume nutrients by mouth as evidenced by patient is currently NPO per DIRECTOR OF MEDICARE recommendations, swallowing difficulty post-stroke. NUTRITION INTERVENTION Interviewed patient's daughter, patient does not meet criteria for refeeding risk with obtained information. Notified INSTALLATION SERVICE REPRESENTATIVE of recs (Radha Killian NP), is agreeable. Will order per plan below. Nutrition prescription: Tube Feeding: Glucerna 1.2 NICOLE via Keofeed. Continuous infusion at 65 mL/hr. Protein Modular: Administer 1 packet(s) Prosource once daily to assist with meeting estimated protein requirement. Free Water Flushes: 50 mL every 4 hours Nutrient provision from recommended TF (based on 22 hour infusion and dosing weight of 93.4 kg): NICOLE: 1776 kcal/day (19 kcal/kg/day) PRO: 101 gm/day (1.1 gm/kg/day) CHO: 163 gm/day (37% of kcal provided) FLUID: 1541 mL/day free water from TF, free water flushes and free water from modular administration Recommended TF meets 100% estimated kcal needs and 100% estimated protein needs with free water adequate for hydration. Plan: 1. Initiate continuous TF with Glucerna 1.2 NICOLE via Keofeed at 20 mL/hr and advance by 15 mL/hr every 4 hours as tolerated to goal rate of 65 mL/hr. 2. Free water flush: 50 mL every 4 hours. 3. Provide 1 packet(s) of Prosource once daily via Keofeed. Administer per environmental air specialist instructions. 4. Provide 100 mg Thiamine and MVI daily x 10 days (today is day 1 of 10). 5. Labs: BMP, Mg and Phos daily. Replete electrolytes as indicated. 6. Weigh patient at least twice weekly. Discharge nutrition plan: Discharge needs assessed. Will provide/update discharge instructions as needed. MONITORING/EVALUATION 01/21/2025 Goals: 1. TF intake will meet at least 90% of goal energy and protein needs based on 72-hour intake average per review of the TF pump and EHR at follow up. WOODY LOCK RD, LDN * Obinna Gibbs MD - 01/21/2025 10:44 AM CDT Images from the original note were not included. Vascular and Interventional Neurology Inpatient Progress Note Олег Ian Watson 1955 [id number] Patient: Олег Watson is being seen for stroke. Since yesterday he has had an MR demonstrating acute L SV IC infarctions Vital Signs: Filed Vitals: 01/21/25 0139 01/21/25 0154 01/21/25 0442 01/21/25 0758 BP: 105/60 135/68 117/74 127/64 Pulse: 79 78 73 73 Resp: 14 18 18 Temp: 98.1 ??F (36.7 ??C) 97.7 ??F (36.5 ??C) 98.1 ??F (36.7 ??C) 98.1 ??F (36.7 ??C) TempSrc: Axillary Axillary Oral SpO2: 96% 96% 95% 97% Weight: Height: Physical Exam: Neurological Exam Alert and oriented with mild dysarthria 3/5 in R upper and lower ext Labs: Recent Labs Lab 01/20/25 0235 01/20/25 1124 01/21/25 0340 WBC 4.74 4.85 4.67 RBC 4.61 4.38* 4.34* HGB 13.5 13.2 12.9 HCT 40.4 38.5 38.5 MCV 87.6 87.9 88.7 MCH 29.3 30.1 29.7 MCHC 33.4 34.3 33.5 PLT 177 176 170 RDW 12.5 12.8 12.6 MPV 9.3 9.4 9.3 NEUC 2.65 2.88 2.44 LYMC 1.25 1.30 1.46 MONOC 0.74 0.57 0.63 EOSC 0.07 0.05 0.10 BASOC 0.02 0.03 0.03 DTYPE AUTOMATED DIFFERENTIAL AUTOMATED DIFFERENTIAL AUTOMATED DIFFERENTIAL , Recent Labs Lab 01/20/25 0235 01/20/25 1124 01/21/25 0340 NA 137 135* 138 K 3.6 4.2 4.1 CL 103 102 106 CO2 28.2 24.6 24.2 AGAP 5.8 8.4 7.8 BUN 10 12 14 CR 1.12 1.45* 1.29 GLU 194* 272* 241* CA 9.5 9.2 9.1 TP -- 6.6 -- ALB -- 2.9* -- TBIL -- 0.3 -- ALKP -- 87 -- AST -- 16 -- ALT -- 19 -- , and Recent Labs Lab 01/19/25205701/21/25 0340 CHOL -- 137 TRI -- 137 HDL -- 38* LDL -- 72 HGBA1C 12.3* -- Current Facility-Administered Medications: acetaminophen (TYLENOL) tablet 650 mg, 650 mg, Oral, Q4H PRN OR acetaminophen (TYLENOL) suppository 650 mg, 650 mg, Rectal, Q4H PRN OR acetaminophen (TYLENOL) suspension 650 mg, 650 mg, Oral,Q4H PRN, Phylicia Howard NP aspirin chewable tablet 81 mg, 81 mg, Oral, Daily, Renee Hannon PA-C atorvastatin (LIPITOR) tablet 80 mg, 80 mg, Oral, Nightly at bedtime, Renee Hannon PA-C enoxaparin (LOVENOX) 30 mg/0.3 mL syringe 30 mg, 30 mg, Subcutaneous, Q12H, 30 mg at 01/21/25 0908 AND [COMPLETED] Moderate Risk for VTE, , , Once, Dennys Downs, LYNN HYDROcodone-acetaminophen (NORCO) 5-325 MG tablet 1 tablet, 1 tablet, Oral, Q4H PRN, Phylicia Howard NP insulin glargine (LANTUS) injection 5 Units, 5 Units, Subcutaneous, Nightly at bedtime, Phylicia Howard NP, 5 Units at 01/19/252150 insulin lispro (HUMALOG/ADMELOG) injection 0-6 Units, 0-6 Units, Subcutaneous, Q6H, Phylicia Howard NP, 3 Units at 01/21/25 0621 lidocaine 4 % patch 1 patch, 1 patch, Transdermal, Q24H, Phylicia Howard NP, 1 patch at 01/20/252127 lisinopril (PRINIVIL) tablet 5 mg, 5 mg, Oral, Daily, Phylicia Howard, INSTALLATION SERVICE REPRESENTATIVE, 5 mg at 01/20/25 0958 metoprolol succinate ER (TOPROL-XL) 24 hr tablet 25 mg, 25 mg, Oral, Daily, Phylicia Howard NP, 25mg at 01/20/25 0957 naLOXone (NARCAN) injection 0.4 mg, 0.4 mg, Intravenous, PRN, Phylicia Howard, INSTALLATION SERVICE REPRESENTATIVE ondansetron (ZOFRAN) injection 4 mg, 4 mg, Intravenous, Q8H PRN, Phylicia Rex Domingoe, INSTALLATION SERVICE REPRESENTATIVE oxyCODONE immediate release (ROXICODONE) tablet 10 mg, 10 mg, Oral, Q4H PRN, Phylicia Rex Domingoe, INSTALLATION SERVICE REPRESENTATIVE pantoprazole EC (PROTONIX) tablet 40 mg, 40 mg, Oral, Daily, Phylicia N Howard, INSTALLATION SERVICE REPRESENTATIVE, 40 mg at 957 senna-docusate (SENOKOT-S) 8.6-50 MG tablet 1 tablet, 1 tablet, Oral, BID, Phylicia Rex Domingoe, INSTALLATION SERVICE REPRESENTATIVE, 1 tablet at 01/20/25 0958 sodium chloride 0.9% infusion, , Intravenous, Continuous, Renee Hannon PA-C, Last Rate: 100 mL/hr at 01/21/25 0600, Rate Verify at 01/21/25 06 Results for orders placed or performed during the hospital encounter of 01/19/25 ECG 12 lead Narrative [place] [address] [place] [address] Test Date: 2025-01-20 Pat Name: ОЛЕГ WATSON Department: 1 Room: 72A Gender: Male Legislators: Mike : 1955 Requested By: SANDRA RAY Order Number: [id number] Reading MD: Wil Rogers Measurements Intervals [place] Rate: 89 P: 12 WI: 176 QRS: 21 QRSD: 98 T: 47 QT: 358 QTc: 436 Interpretive Statements SINUS RHYTHM POSSIBLE LEFT ATRIAL ENLARGEMENT [-0.1mV P-WAVE IN V1/V2] POSSIBLE ANTERIOR MYOCARDIAL INFARCTION , OF INDETERMINATE AGE [30 ms Q WAVE IN V3/V4, OR R < 0.2 mV IN V4] Home Meds: Prior to Admission Medications Prescriptions Last Dose Informant Patient Reported? Taking? Glucose Blood (JOORTOUCH ULTRA) test strip No No Sig: Use as instructed -- Test blood sugar BID and PRN DX: E11.65 Insulin Pen Needle (PEN NEEDLES) 31G X 8 MM Misc No No Si each by Does not apply route daily. aspirin EC (ECOTRIN) 81 MG tablet 01/19/2025 No Yes Sig: Take 1 tablet (81 mg total) by mouth daily. atorvastatin (LIPITOR) 40 MG tablet No No Sig: Take 1 tablet (40 mg total) by mouth every other day. glimepiride (AMARYL) 2 MG tablet Yes No Sig: Take 1 tablet (2 mg total) by mouth every morning before breakfast. insulin lispro, 1 Unit Dial, (HUMALOG) 100 UNIT/ML injection (PEN) Yes No Sig: Inject 8-14 Units into the skin 2 (two) times daily. lisinopril (PRINIVIL) 5 MG tablet 01/18/2025 No Yes Sig: Take 1 tablet (5 mg total) by mouth daily. metFORMIN (GLUCOPHAGE) 1000 MG tablet No No Sig: BID metoprolol succinate ER (TOPROL-XL) 25 MG 24 hr tablet 01/18/2025 No Yes Sig: Take 1 tablet (25 mg total) by mouth daily. pantoprazole EC (PROTONIX) 40 MG tablet 01/18/2025 No Yes Sig: take 1 tablet by mouth every day pioglitazone (ACTOS) 30 MG tablet Yes No Sig: Take 1 tablet (30 mg total) by mouth daily. silver sulfADIAZINE (SILVADENE) 1 % cream 01/18/2025 No Yes Sig: Apply topically 2 (two) times daily. Facility-Administered Medications: None Radiology: MRI CERV SPINE WO CON Result Date: 01/21/2025 IMPRESSION: 1. No convincing evidence of cord contusion, however significant artifact (predominantly related to patient motion) significantly limits this evaluation. 2. Chronic nonunited C2 fracture.Ordered By: OBINNA GIBSB Interpreted By: Bryan Vogel MD, 01/21/2025 7:05 AM MRI BRAIN WO CON Result Date: 01/20/2025 IMPRESSION: 1. Small acute left-sided strokes in the left basal ganglia and adjacent temporal lobe.Possible additional stroke in the inferomedial left temporal lobe. 2. Volume loss and probable small vessel disease. 3. Calvarial contour abnormality could be correlated with prior trauma. 4. Preliminary report was sent to Dr Gibbs by [employer] at 1825 hours on 01/20/2025. Referred By: ISAK KANG Interpreted By: Ryan Prasad MD, 01/20/2025 6:13 PM CTA HEAD+NECK Result Date: 01/20/2025 IMPRESSION: 1. No acute or significant cervicocerebral vascular abnormality identified. 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 See text. 2. 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 3. Additional chronic/nonurgent findings as described. Referred By: ISAK Zuritaectronically Signed By: Atilio Varela MD on 01/20/2025 1:07 PM Interpreted By: Atilio Varela MD, 01/20/2025 12:[address] HEAD WO CON Result Date: 01/20/2025 IMPRESSION: 1. No acute intracranial process identified. 2. Cortical atrophy and small vessel disease. 3. 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 Clinical correlation required. Referred By: ISAK KANG Interpreted By: Atilio Varela MD, 01/20/2025 12:18 PM XR CERV SPINE LAT 1V Result Date: 01/20/2025 IMPRESSION: The known C2 fracture is not well depicted radiographically. No significant cortical step-off is seen involving the C2 vertebrae. Referred By: ISAK KANG Interpreted By: Alfie Davey MD, 01/20/2025 4:[address] CHEST+ABD+PEL W CON Result Date: 01/19/2025 IMPRESSION: 1. No CT evidence of acute injury to the solid organs or hollow viscus of the abdomen and pelvis. Referred By: ISAK KANG Interpreted By: Trina Ferrera DO, 01/19/2025 8:43 PM CTA NECK Result Date: 01/19/2025 IMPRESSION: 1. Ununited comminuted fracture of the base of the odontoid with 3 to 4 mm anterior displacement of the odontoid with respect to the body of C2 with diastases on the fracture line with adjacent mildly displaced fracture fragments. There is widening of the interspinous distance at C1-C2.2. No vascular injury or extravasation. 3. Atherosclerotic calcifications in the aortic arch and distal left common carotid artery extending into the origin of left external carotid artery and minimally at the origin of the left carotid bulb with less than 50% stenosis. No hemodynamically significant stenosis or aneurysm in the cervical internal carotid arteries. 4. 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 5. 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 6. 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 7. Severe hypoplasia or less likely atherosclerotic stenosis of the A1 segment of right anterior cerebral artery. The right A2 segment is supplied predominantly from the left anterior cerebral artery via the anterior communicating artery. 8. Please see above report for the other findings. Referred By: ISAK KANG Interpreted By: Maria G Gilbert MD, 01/19/2025 8:47 PM Impression: Acute L internal capsul small vessel infarction Patient Active Problem List Diagnosis Coronary artery disease involving [place] coronary artery of [place] heart without angina pectoris Hyperlipidemia S/P CABG x 4 Benign essential HTN Microalbuminuria Non-rheumatic mitral regurgitation COVID-19 vaccination declined Uncontrolled type 2 diabetes mellitus with hyperglycemia ([facility]) Stage 3a chronic kidney disease ([facility]) Closed C2 fracture ([facility]) Acute embolic stroke ([facility]) Fall Plan: Continue daily asa Statin PT/OT Utilize stroke order set Obinna Gibbs MD 01/21/2025 10:44 AM * Fiorella Harris RN - 01/21/2025 8:28 AM CDT Problem: Discharge Planning Goal: Knowledge of discharge instructions Outcome: Progressing Problem: Pain control/comfort Goal: Promote pain control/comfort Outcome: Progressing Problem: Skin integrity, Impaired-wound Goal: Absence of new skin breakdown Outcome: Progressing Goal: Evidence of wound healing Outcome: Progressing Problem: Skin integrity, Impaired-pressure injury/ulcer Goal: Absence of new skin breakdown Outcome: Progressing Goal: Evidence of pressure injury/ulcer healing Outcome: Progressing Problem: Skin integrity, at risk Goal: Absence of new skin breakdown Outcome: Progressing Problem: Moisture associated skin impairment Goal: Reduce moisture exposure Outcome: Progressing Goal: Evidence of wound healing Outcome: Progressing Goal: Evidence of pressure injury/ulcer healing Outcome: Progressing Goal: Absence of new skin breakdown Outcome: Progressing Problem: Reduced risk for falls/injury Goal: Reduced Risk for Falls/Injury Outcome: Progressing Goal: Reduced Risk of Confusion (Acute vs Chronic) Outcome: Progressing Goal: Reduced Risk of Symptomatic Depression Outcome: Progressing Goal: Reduced Risk of Altered Elimination Outcome: Progressing Goal: Reduced Risk of Dizziness/Vertigo/Balance Outcome: Progressing Goal: Reduced Risk of Polypharmacy Outcome: Progressing Problem: Pain Goal: Patient's pain/discomfort is manageable Description: Assess and monitor patient's pain using appropriate pain scale. Collaborate with interdisciplinary team and initiate plan and interventions as ordered. Re-assess patient's pain level 30 - 60 minutes after pain management intervention. Outcome: Progressing Problem: Safety Goal: Patient will be injury free during hospitalization Description: Assess and monitor vitals signs, neurological status including level of consciousness and orientation. Assess patient's risk for falls and implement fall prevention plan of care and interventions per hospital policy. Ensure arm band on, uncluttered walking paths in room, adequate room lighting, call light and overbed table within reach, bed in low position, wheels locked, side rails up per policy, and non-skid footwear provided. Outcome: Progressing Problem: Daily Care Goal: Daily care needs are met Description: Assess and monitor ability to perform self care and identify potential discharge needs. Outcome: Progressing Problem: Psychosocial Needs Goal: Demonstrates ability to cope with hospitalization/illness Description: Assess and monitor patients ability to cope with his/her illness. Outcome: Progressing Goal: Collaborate with patient/family/caregiver to identify patient specific goals for this hospitalization Outcome: Progressing Problem: Discharge Barriers Goal: Patient's discharge needs are met Description: Collaborate with interdisciplinary team and initiate plans and interventions as needed. Outcome: Progressing Problem: Aspiration - Risk of Goal: Absence of aspiration Outcome: Progressing Problem: Mobility - Impaired Goal: Able to achieve maximum mobility level Outcome: Progressing Problem: Mood - Altered Goal: Alleviation of anxiety Outcome: Progressing Goal: Decrease in depressive symptoms Outcome: Progressing Problem: THROMBOLYTIC COMPLICATION - RISK OF ANGIOEDEMA AND BLEEDING Goal: Absence of angioedema Outcome: Progressing Goal: Absence of bleeding Outcome: Progressing Problem: Tissue Perfusion - Cerebral, Altered Goal: Absence of continued neurologic deterioration signs and symptoms Outcome: Progressing Problem: Venous Thromboembolism - Risk of Goal: Absence of venous thromboembolism Outcome: Progressing Problem: Verbal Communication - Impaired Goal: Effective communication Outcome: Progressing Goal: Increased social interaction Outcome: Progressing Problem: Discharge Planning Goal: Knowledge of discharge instructions Outcome: Progressing * Taran Erwin, PT - 01/21/2025 8:23 AM CDTSummary: Physical Therapy Medical Hold 01/21/25 0600 Therapy Visit Ordering Provider Phylicia Howard NP Reason for admission Pt presents after fall with a chronic type II odontoid fracture. While at hospital, pt with right sided weakness and blurry vision. MRI demonstrates: small acute left-sided strokes in the left basal ganglia, adjacent temporal lobe, possible additional stroke in the inferomedialleft temporal lobe, volume loss and probable small vessel disease. ......PMH: Acute myocardial infar ction, Ankle fracture, fracture left fibula, Coronary artery disease, Diabetes, DKA, HTN, Eustachian tube dysfunction, HLD, Hx of CABG, Microalbuminuria, Myocardial infarction, Non-rheumatic mitral regurgitation .........Therapy orders: eval and treat....Activity as tolerated, up at jahaira with collar Acute Inpatient PT Time Calculation PT Start Time 0823 PT Therapy Interruption (min) Therapy orders received and chart reviewed. Pt cleared to be seen fortherapedro rincon by RN. Upon entry, pt working with speech therapy. PT/OT will attempt to see pt at a later date/time as schedule allows and pt is abailable. Thank you. Precautions Spine Precautions Bending;Lifting;Twisting General Precautions Aspiration;Bed Alarm;Chair Alarm;Fall Risk Other Tele, IV access, [place] * Roxana Vincent OT - 01/21/2025 8:23 AM CDTSummary: OT Medical Hold 01/21/25 0823 Therapy Visit Reason for admission Pt presents after fall with a chronic type II odontoid fracture. While at hospital, pt with right sided weakness and blurry vision. MRI demonstrates: small acute left-sided strokes in the left basal ganglia, adjacent temporal lobe, possible additional stroke in the inferomedialleft temporal lobe, volume loss and probable small vessel disease. ......PMH: Acute myocardial infar ction, Ankle fracture, fracture left fibula, Coronary artery disease, Diabetes, DKA, HTN, Eustachian tube dysfunction, HLD, Hx of CABG, Microalbuminuria, Myocardial infarction, Non-rheumatic mitral regurgitation .........Therapy orders: eval and treat....Activity as tolerated, up at jahaira with collar Ordering Provider Phylicia Howard NP Acute Inpatient OT Time Calculation OT Start Time 08 OT Therapy Interruption (min) Therapy orders received and chart reviewed. Pt cleared to be seen fortherapy serviccnelia by RN. Upon entry, pt working with speech therapy. PT/OT will attempt to see pt at a later date/time as schedule allows and pt is abailable. Thank you. Precautions Spine Precautions Bending;Lifting;Twisting General Precautions Aspiration;Bed Alarm;Chair Alarm;Fall Risk Other Tele, IV access, Kayla Vincent, OTR/L * DONNIE Cruz - 01/21/2025 7:59 AM CDT Images from the original note were not included. TRAUMA PROGRESS NOTE DONNIE CRUZ, 01/21/2025, 8:[address] [facility] LEVEL [facility] TRAUMA CENTER ACUTE CARE SURGERY SERVICE: EMERGENCY SURGERY, TRAUMA, SURGICAL CRITICAL CARE [address] [place] [id number] TO CONTACT PROVIDERS: Trauma Surgeon/Critical Care Snow Removing Supervisor MD: [id number] Emergency Surgery MD: [id number] Advanced Practice Provider - Trauma: [id number] Advanced Practice Provider - Emergency Surgery [id number] Name: Олег Watson Date of : 1955 Room/Bed: [facility] Date: 01/21/2025 Time: 8:00 AM CHIEF COMPLAINT: Wants to eat ASSESSMENT: 69-year-old male who presents with Closed C2 fracture ([facility]) Acute embolic stroke ([facility]) PLAN: #Right upper extremity/Right lower extremity weakness on exam this AM ~ 1030AM #Blurry vision 01/20 STAT stroke, please see significant event note for more details. ASA 81mg daily Atorvastatin 80mg qhs Neuro checks q4h DIRECTOR OF MEDICARE to eval and treat Continuous telemetry 01/20 MRI C-spine/head- demonstrating acute L SV IC infarctions #Chronic C2 fracture Ortho Spine - Lisseth Activity: Maintain pauma J cervical collar at all times, ambulate as tolerated PT/OT to eval and treat Outpatient follow up with Dr. Montanez #DM History of uncontrolled diabetes A1C on admission 12.3 Continue ISS Continue Lantus 5U qhs (normally takes 12U) Will continue to closely monitor blood sugar during stay Dysphagia DIRECTOR OF MEDICARE follow Failed BS swallow with DIRECTOR OF MEDICARE today Strict NPO Non oral means for nutrition and medications per medical care team and as consistent with goals of care Oral care per protocol May consider completion of a video swallow study in the next 1-2 treatment session if symptoms persist Continued skilled ST for dysphagia management as well as motor speech treatment Nutrition Dietitian following TF with Glucerna 1.2 NICOLE via Keofeed at 20 mL/hr and advance by 15 mL/hr every 4 hours as toleratedto goal rate of 65 mL/hr. Free water flush: 50 mL every 4 hours. Provide 1 packet(s) of Prosource once daily Provide 100 mg Thiamine and MVI daily x 10 days Labs: BMP, Mg and Phos daily. Replete electrolytes as indicated. Weigh patient at least twice weekly. General Trauma Care Full code IMC VS q4 I&O q4 Cardiac monitoring Pain control Tylenol 650mg q4h PRN mild [place] 5mg q6h PRN mod Roxicodone 5mg q6h PRN severe Lidocaine patch DVT ppx: SCDs + Lovenox 30mg BID, started on 01/20. Patient does not Require DVT ppx at discharge Nutrition: strict NPO Fluids: NS @ 50 PRN antiemetics: zofran Bowel regimen: LBM HEDGE FUND MANAGER; + flatus Senokot BID scheduled GI ppx: protonix Pulmonary hygiene: IS q15min while awake Supplemental O2 Required: No Activity: as tolerated, maintain cervical collar at all times PT/OT: to eval and treat DIRECTOR OF MEDICARE: to eval and treat Electrolytes: Monitor Electrolytes and replace PRN Labs: CBC, BMP, Mag, Phos L/D/A: PIV Home medications: restarted, atorvastatin increased to 80mg qhs 01/20 Tertiary survey completed: 01/20 - right sided upper and lower weakness with blurry vision CODE: Full Code Disposition: Social work/case management for discharge/transfer dispostion, Disposition under consideration per patient assessment, Continue to re-assess. Patient is not medically stable for discharge. PT/OT eval. Dysphagia- Keofed placed today SUBJECTIVE: Pt is feeling somewhat discouraged since his swallow evaluation this AM> His pain is well controlled. Voiding without difficulty. + flatus, - BM. Denies n/v, n/t, SOB, CP, BUAER. Vision is still blurry and is still experiencing right sided weakness. Has been doing exercises in bed. Significant Interval History: 01/20: STAT stroke. MRI: demonstrating acute L SV IC infarctions 01/21: faild bedside swallow with DIRECTOR OF MEDICARE. Keofed place. TF started. CURRENT MEDS: Scheduled Meds: aspirin 81 mg Oral Daily atorvastatin 80 mg Oral Nightly at bedtime enoxaparin 30 mg Subcutaneous Q12H insulin glargine 5 Units Subcutaneous Nightly at bedtime insulin lispro 0-6 Units Subcutaneous Q6H lidocaine 1 patch Transdermal Q24H lisinopril 5 mg Oral Daily metoprolol succinate ER 25 mg Oral Daily pantoprazole EC 40 mg Oral Daily senna-docusate 1 tablet Oral BID Continuous Infusions: sodium chloride 100 mL/hr at 01/21/25 0600 PRN Meds:acetaminophen OR acetaminophen OR acetaminophen, HYDROcodone- acetaminophen, naLOXone, ondansetron, oxyCODONE immediate release REVIEW OF SYSTEMS: Pertinent items are noted in HPI. OBJECTIVE: Vital Signs Last 24 Hours: Temp: [97.7 ??F (36.5 ??C)-98.1 ??F (36.7 ??C)] 98.1 ??F (36.7 ??C) Pulse: [73-102] 73 Resp: [14-20] 18 BP: (105-135)/(60-75) 127/64 Lines, Drains, Tubes: Output by Drain (mL) 01/19/25 0700 - 01/19/25 1459 01/19/25 1500 - 01/19/25 2259 01/19/25 2300 - 01/20/25 0659 01/20/25 0700 - 01/20/25 1459 01/20/25 1500 - 01/20/25 2259 01/20/25 2300 - 01/21/25 0659 01/21/25 0700 - 01/21/25 0800 Patient has no LDAs of requested type attached. I/O totals for the last 24 hours: Intake/Output Summary (Last 24 hours) at 01/21/2025 08 Last data filed at 01/21/2025 0600 Gross per 24 hour Intake 1585 ml Output -- Net 1585 ml PHYSICAL EXAM: General appearance: alert and oriented, oriented to person, place, and time, Neurological: Speech is slow but clear, 2/5 motor strength to RUE and RLE, right facial droop, GCS 15 Scalp: Skin intact, no lacerations or lesions noted Face: Structural elements stable, facial soft tissue normal Eyes: Tracking without difficulty, extra-ocular muscles intact, PERRL, patient relays blurry visionin both eyes, L > R Ears: Hearing impaired in bilateral ear, wearing head aids and able to hear Nose: Nasal septum midline, no rhinorrhea or epistaxis Mouth: Mucous membranes moist, no signficant deformity or malocclusion Neck: Trachea midline, Symmetric, [place] J collar in place Chest: No dyspnea or respiratory distress noted, sufficient air movement, broadly clear Heart: S1 and S2 normal, normal rate Abdomen: soft, nontender, nondistended Pelvis: stable pelvis, no signs of structural deformity Back exam: soft tissues broadly normal, no step-offs noted on thoracic or lumbar spine, no midline tenderness to cervical, thoracic, or lumbar regions Musculoskeletal: Motor and sensory grossly normal bilaterally to LUE and LLE, RUE and RLE with weakness when compared to LUE and LLE, sensation and distal pulses intact to all extremities Skin: warm and dry Psychiatric: calm, pleasant and cooperative. LABS: Recent Labs Lab 01/20/25 0235 01/20/25 1124 01/21/25 0340 WBC 4.74 4.85 4.67 HGB 13.5 13.2 12.9 HCT 40.4 38.5 38.5 PLT 177 176 170 INR -- 1.0 -- PTT -- 33.8 -- NA 137 135* 138 K 3.6 4.2 4.1 CL 103 102 106 CO2 28.2 24.6 24.2 AGAP 5.8 8.4 7.8 BUN 10 12 14 CR 1.12 1.45* 1.29 GLU 194* 272* 241* CA 9.5 9.2 9.1 TP -- 6.6 -- ALB -- 2.9* -- TBIL -- 0.3 -- ALKP -- 87 -- AST -- 16 -- ALT -- 19 -- MAGNESIUM 1.6 -- 1.6 PHOS 2.5 -- 2.8 PH ARTERIAL Date Value Ref Range Status 05/10/2018 7.36 7.35 - 7.45 Final PCO2 Date Value Ref Range Status 05/10/2018 40 35.0 - 45.0 MM HG Final PO2 Date Value Ref Range Status 05/10/2018 75 (L) 80.0 - 100.0 MM HG Final O2 SATURATION Date Value Ref Range Status 05/09/2018 100.0 90.0 - 100.0 % Final BICARB ARTERIAL Date Value Ref Range Status 05/10/2018 22.6 22.0 - 26.0 MEQ/L Final BASE DEFICIT Date Value Ref Range Status 05/10/2018 2.7 MEQ/L Final BE/BASE EXCESS Date Value Ref Range Status 05/09/2018 0.0 MEQ/L Final No results for input(s): ABORH in the last 168 hours. No results for input(s): CKTOTAL in the last 168 hours. CULTURES & SENSITIVITIES: No results found for this visit on 01/19/25 (from the past 2 weeks). No results found for this visit on 01/19/25 (from the past 2 weeks). PATHOLOGY: * Cannot find OR log * IMAGING: Radiology Results (Last 30 days) 01/20/25 1710 MRI CERV SPINE WO CON Final result Impression: IMPRESSION: 1. No convincing evidence of cord contusion, however significant artifact (predominantly related to patient motion) significantly limits this evaluation. 2. Chronic nonunited C2 fracture. Ordered By: OBINNA GIBBS Interpreted By: Bryan Vogel MD, 01/21/2025 7:05 AM 01/20/25 1658 MRI BRAIN WO CON Final result Impression: IMPRESSION: 1. Small acute left-sided strokes in the left basal ganglia and adjacent temporal lobe. Possible additional stroke in the inferomedial left temporal lobe. 2. Volume loss and probable small vessel disease. 3. Calvarial contour abnormality could be correlated with prior trauma. 4. Preliminary report was sent to Dr Gibbs by [employer] at 1825 hours on 01/20/2025. Referred By: ISAK KANG Interpreted By: Ryan Prasad MD, 01/20/2025 6:13 PM 01/20/25 1135 CTA HEAD+NECK Final result Impression: IMPRESSION: 1. No acute or significant cervicocerebral vascular abnormality identified. 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 See text. 2. 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 3. Additional chronic/nonurgent findings as described. Referred By: ISAK KANG Interpreted By: Atilio Varela MD, 01/20/2025 12:33 PM 01/20/[address] HEAD WO CON Final result Impression: IMPRESSION: 1. No acute intracranial process identified. 2. Cortical atrophy and small vessel disease. 3. 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 Clinical correlation required. Referred By: ISAK KANG Interpreted By: Atilio Varela MD, 01/20/2025 12:18 PM 01/19/25 2210 XR CERV SPINE LAT 1V Final result Impression: IMPRESSION: The known C2 fracture is not well depicted radiographically. No significant cortical step-off is seen involving the C2 vertebrae. Referred By: ISAK KANG Interpreted By: Alfie Davey MD, 01/20/2025 4:16 AM 01/19/252020 CTA NECK Final result Impression: IMPRESSION: 1. Ununited comminuted fracture of the base of the odontoid with 3 to 4 mm anterior displacement of the odontoid with respect to the body of C2 with diastases on the fracture line with adjacent mildly displaced fracture fragments. There is widening of the interspinous distance at C1-C2. 2. No vascular injury or extravasation. 3. Atherosclerotic calcifications in the aortic arch and distal left common carotid artery extending into the origin of left external carotid artery and minimally at the origin of the left carotid bulb with less than 50% stenosis. No hemodynamically significant stenosis or aneurysm in the cervical internal carotid arteries. 4. 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 5. 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 6. origin of right posterior cerebral artery from the supraclinoid right internal carotid artery with developmental hypoplasia of the right T1 segment of the basilar tip. 7. Severe hypoplasia or less likely atherosclerotic stenosis of the A1 segment of right anterior cerebral artery. The right A2 segment is supplied predominantly from the left anterior cerebral artery via the anterior communicating artery. 8. Please see above report for the other findings. Referred By: ISAK KANG Interpreted By: Maria G Gilbert MD, 01/19/2025 8:47 PM 01/19/252020 CT CHEST+ABD+PEL W CON Final result Impression: IMPRESSION: 1. No CT evidence of acute injury to the solid organs or hollow viscus of the abdomen and pelvis. Referred By: ISAK KANG Interpreted By: Trina Ferrera DO, 01/19/2025 8:43 PM Cosigned by Sandra Ray DO at 01/21/2025 8:36 PM CDT * Ryan Real PharmD - 01/20/2025 11:19 PM CDT Pharmacy Clinical Services: Stroke Note (Ischemic) Arrival date/time: 01/19 at 1905 Stroke-relevant medications patient taking prior to admission (antithrombotic, statin, anticoagulation): aspirin and atorvastatin Today is day 2 of admission for Олег Sosa Watson a 69-year-old male. Pharmacy has been consulted to review the patient's chart for medication appropriateness for ischemic stroke. Stroke symptoms [id number]. 1. TNK received: No A. If yes, was there evidence of angioedema present after TNK administration? No B. If yes, was the order set used? No 2. Telemetry initiated (by the end of day 2): Yes 3. VTE prophylaxis (by the end of day 2): enoxaparin. First administration on 01/20 at 2138. 4. Antithrombotic therapy (by the end of day 2): aspirin. First administration on 01/20 at 2250. 5. Statin therapy: atorvastatin 80 mg at bedtime (high intensity statin preferred). Per guidelines goal of LDL < 70 mg/dL LDL (CALCULATED) Date Value Ref Range Status 03/31/2023 20 <100 MG/DL Final 6. Documented A.Fib/flutter?: No; Anticoagulation therapy: none indicated Thank you for the consult. Pharmacy will continue to monitor for stroke medication appropriateness. RYAN REAL PharmD Phone number: [phone] 01/20/2025 11:22 PM * Renee Hannon PA-C - 01/20/2025 11:48 AM CDT TRAUMA SURGERY SIGNIFICANT EVENT NOTE: R sided weakness, blurry vision ACUTE CARE SURGERY SERVICE RENEE HANNON PA-C, 01/20/2025, 5:[address] [facility] LEVEL 1 TRAUMA CENTER ACUTE CARE SURGERY SERVICE: EMERGENCY SURGERY, TRAUMA, SURGICAL CRITICAL CARE [address] [place] [address] TO CONTACT PROVIDERS: Critical Care Snow Removing Supervisor/Trauma Surgeon MD: [id number] Emergency Surgery MD: [id number] Advanced Practice Provider - Trauma: [id number] Advanced Practice Provider - Emergency Surgery [id number] Name: Олег Watson Date of : 1955 Room/Bed: [facility] Date: 01/20/2025 Time: 5:48 PM SIGNIFICANT INTERVAL EVENT: RUE/RLE weakness with blurry vision PLAN: STAT stroke NIH stroke scale: 8 Stat BGL [address] head without contrast - not acute findings CTA H/N - no acute vascular findings Labs ordered CBC - WNL BMP - Na 135, Cr 1.4, BUN 12, GFR 52, albumin 2.9 Coags - INR 1.0, PT 11.8, D-dimer 607, fibrinogen 457 Cardiac panel - WNL EKG ordered - sinus rhythm, HR 89, QTC [address] Bravo Guevara consulted Did not see any large vessel obstruction Recommendations: MRI brain w/o contrast, TTE w/ bubble study, Neuro stroke team consult Give ASA 81 mg PO or 300 mg WI now and daily - ordered Allow permissive hypertension to < 220/120 mm HG Neuro checks, call with exam changes or deterioration Keep BG 80-180 mg/dl Atorvastatin 80 mg daily - Pt currently on atorvastatin 40mg qhs, order adjusted to be 80mg qhs Keep on telemetry to assess for arrhythmias - order in Check lipid profile and HgA1C - lipid profile ordered, A1C was ordered on admission 12.3 Perform Stroke Education Inpatient consult to Neuro stroke Dr. Obinna Gibbs MRI c-spine to be done with MRI brain Start ASA and statin Utilize stroke order set R hemiparesis - likely SV infarction although spinal cord contusion is possible Given hyponatremia, large amounts of IV contrast, elevated Cr, and current NPO status, will start mIVF & order DIRECTOR OF MEDICARE eval Diet: NPO Fluids: NS @ 100cc/hr Neuro checks q4h, can relax tomorrow DIRECTOR OF MEDICARE to eval and treat Labs in AM: CBC, BMP, Mag, Phos, lipid panel CURRENT MEDS: Scheduled Meds: aspirin 81 mg Oral Daily atorvastatin 80 mg Oral Nightly at bedtime insulin glargine 5 Units Subcutaneous Nightly at bedtime insulin lispro 0-6 Units Subcutaneous Q6H lidocaine 1 patch Transdermal Q24H lisinopril 5 mg Oral Daily metoprolol succinate ER 25 mg Oral Daily pantoprazole EC 40 mg Oral Daily senna-docusate 1 tablet Oral BID Continuous Infusions: sodium chloride 100 mL/hr at 01/20/25 1409 PRN Meds:acetaminophen OR acetaminophen OR acetaminophen, HYDROcodone- acetaminophen, naLOXone, ondansetron, oxyCODONE immediate release Vital Signs Last 24 Hours: Temp: [97.3 ??F (36.3 ??C)-98.6 ??F (37 ??C)] 97.9 ??F (36.6 ??C) Pulse: [79-102] 79 Resp: [15-20] 18 BP: (113-143)/(60-92) 117/65 LABS: Recent Labs Lab 01/20/25 0235 01/20/25 1124 WBC 4.74 4.85 HGB 13.5 13.2 HCT 40.4 38.5 PLT 177 176 INR -- 1.0 PTT -- 33.8 NA 137 135* K 3.6 4.2 CL 103 102 CO2 28.2 24.6 AGAP 5.8 8.4 BUN 10 12 CR 1.12 1.45* GLU 194* 272* CA 9.5 9.2 TP -- 6.6 ALB -- 2.9* TBIL -- 0.3 ALKP -- 87 AST -- 16 ALT -- 19 MAGNESIUM 1.6 -- PHOS 2.5 -- PH ARTERIAL Date Value Ref Range Status 05/10/2018 7.36 7.35 - 7.45 Final PCO2 Date Value Ref Range Status 05/10/2018 40 35.0 - 45.0 MM HG Final PO2 Date Value Ref Range Status 05/10/2018 75 (L) 80.0 - 100.0 MM HG Final O2 SATURATION Date Value Ref Range Status 05/09/2018 100.0 90.0 - 100.0 % Final BICARB ARTERIAL Date Value Ref Range Status 05/10/2018 22.6 22.0 - 26.0 MEQ/L Final BASE DEFICIT Date Value Ref Range Status 05/10/2018 2.7 MEQ/L Final BE/BASE EXCESS Date Value Ref Range Status 05/09/2018 0.0 MEQ/L Final No results for input(s): ABORH in the last 168 hours. No results for input(s): CKTOTAL in the last 168 hours. Cosigned by Sandra Ray DO at 01/21/2025 8:52 PM CDT * Diamante Landis, OT - 01/20/2025 11:15 AM CDT 01/20/25 1044 Acute Inpatient OT Time Calculation OT Start Time 1044 OT Therapy Interruption (min) 31 minutes non-billable with pt/MD: Orders received and chart reviewed. Attempted to see pt for evaluation. Upon our arrival pt noted to have difficulty lifting RLE off of bed and difficulty lifting RUE with -2 to 3/5 strength noted to RUE. Pt also reporting blurred vis ion and difficulty speaking with R facial droop noted. RN called to room and trauma PA Renee Hannon was contacted. Renee PICHARDO reports symptoms were present during her evaluation earlier and per connect were present at [facility]. Per chart review, Dr. Maria D CAR pt demonstrated no neuro deficits earlier during his assessment at 630a (which was verbally confirmed with his via phone call at 1113). [facility] stroke called MEAT PROCESSOR team along with Renee PICHARDO made aware of report. Therapy services will hold per PA request/neuro work up and will check back later as our schedule allows. * Thanh De La Fuente, PT - 01/20/2025 10:44 AM CDT 01/20/25 1200 Acute Inpatient PT Time Calculation PT Start Time 1044 PT Therapy Interruption (min) No skilled PT. Non-billable minutes: [id number]. Attempted to see patient for therapy evaluations. During subjective portion of examination patient was complaining of right sided weakness, stating he think he suffered from a stroke. He demonstrated grossly 2/5 strength throughout the RUE and RLE. He reports the weakness has been present since yesterday. I did not see this weakness mentioned during my chart review. The last ortho note on 01/20 reported 5/5 strength bilaterally in both the UE/LE. My collegague contacted trauma PA, Renee Hannon to share our findings.She stated she was aware of the findings as they were present during her exam earlier in the day. Renee later came to the room and called a stat stroke. PT to hold at this time and check back when appropriate to participate with skilled therapy services. * Renee Hannon PA-C - 01/20/2025 8:08 AM CDT Images from the original note were not included. TRAUMA PROGRESS NOTE RENEE HANNON PA-C, 01/20/2025, 8:[address] [facility] LEVEL 1 TRAUMA CENTER ACUTE CARE SURGERY SERVICE: EMERGENCY SURGERY, TRAUMA, SURGICAL CRITICAL CARE [address] [place] [address] TO CONTACT PROVIDERS: Trauma Surgeon/Critical Care Snow Removing Supervisor MD: [id number] Emergency Surgery MD: [id number] Advanced Practice Provider - Trauma: [id number] Advanced Practice Provider - Emergency Surgery [id number] Name: Олег Watson Date of : 1955 Room/Bed: [facility] Date: 01/20/2025 Time: 8:37 PM CHIEF COMPLAINT: right sided weakness/blurry vision ASSESSMENT: 69-year-old male who presents with Closed C2 fracture ([facility]CC) Acute embolic stroke ([facility]) PLAN: #Right upper extremity/Right lower extremity weakness on exam this AM ~ 1030AM #Blurry vision STAT stroke, please see significant event note for more details. The plan below will reflect the most updated plan of care Daughter has been updated throughout the day ASA 81mg daily Atorvastatin 80mg qhs Neuro checks q4h, can relax tomorrow DIRECTOR OF MEDICARE to eval and treat Labs in AM: CBC, BMP, Mag, Phos, lipid panel Continuous telemetry MRI C-spine/head pending #Chronic C2 fracture Ortho Spine - Lisseth Activity: Maintain pauma J cervical collar at all times, ambulate as tolerated PT/OT to eval and treat Outpatient follow up with Dr. Montanez #DM History of uncontrolled diabetes A1C on admission 12.3 Continue ISS Continue Lantus 5U qhs (normally takes 12U) Will continue to closely monitor blood sugar during stay General Trauma Care Pain control PRN Tylenol 650mg q4h PRN [place] 5mg q4h PRN Roxicodone 10mg q4h Lidocaine patch DVT ppx: SCDs + Lovenox 30mg BID, started on 01/20. 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 GI ppx: protonix Pulmonary hygiene: IS q15min while awake Supplemental O2 Required: No Activity: as tolerated, maintain cervical collar at all times PT/OT: to eval and treat DIRECTOR OF MEDICARE: to eval and treat Electrolytes: Monitor Electrolytes and replace PRN Labs: CBC, BMP, Mag, Phos, lipid panel, A1C I/Os q4h L/D/A: PIV Home medications: restarted, atorvastatin increased to 80mg qhs 01/20 Tertiary survey completed: 01/20 - right sided upper and lower weakness with blurry vision Problem list updated CODE: Full Code Disposition: Social work/case management for discharge/transfer dispostion, Disposition under consideration per patient assessment, Continue to re-assess. Patient is not medically stable for discharge. Stroke work up pending. SUBJECTIVE: +Flatus, -OOB, +Free void, Pain controlled, -Nausea, -Vomiting. Right sided weakness and blurry vision, daughter says this has been going on since yesterday. Daughter states patient's speech does notappear slurred, but he is speaking slower than he is. Patient denies paresthesias to all extremities. Significant Interval History: STAT STROKE 01/20. CURRENT MEDS: Scheduled Meds: aspirin 81 mg Oral Daily atorvastatin 80 mg Oral Nightly at bedtime enoxaparin 30 mg Subcutaneous Q12H insulin glargine 5 Units Subcutaneous Nightly at bedtime insulin lispro 0-6 Units Subcutaneous Q6H lidocaine 1 patch Transdermal Q24H lisinopril 5 mg Oral Daily metoprolol succinate ER 25 mg Oral Daily pantoprazole EC 40 mg Oral Daily senna-docusate 1 tablet Oral BID Continuous Infusions: sodium chloride 100 mL/hr at 01/20/25 1409 PRN Meds:acetaminophen OR acetaminophen OR acetaminophen, HYDROcodone- acetaminophen, naLOXone, ondansetron, oxyCODONE immediate release REVIEW OF SYSTEMS: Pertinent items are noted in HPI. OBJECTIVE: Vital Signs Last 24 Hours: Temp: [97.3 ??F (36.3 ??C)-98.1 ??F (36.7 ??C)] 98.1 ??F (36.7 ??C) Pulse: [79-102] 79 Resp: [18-20] 20 BP: (113-142)/(60-80) 120/74 Lines, Drains, Tubes: Output by Drain (mL) 01/18/25 0700 - 01/18/25 1459 01/18/25 1500 - 01/18/25 2259 01/18/25 2300 - 01/19/25 0659 01/19/25 0700 - 01/19/25 1459 01/19/25 1500 - 01/19/25 2259 01/19/25 2300 - 01/20/25 0659 01/20/25 0700 - 01/20/25 1459 01/20/25 1500 - 01/20/252036 Patient has no LDAs of requested type attached. I/O totals for the last 24 hours: Intake/Output Summary (Last 24 hours) at 01/20/20252036 Last data filed at 01/20/2025 0437 Gross per 24 hour Intake 0 ml Output -- Net 0 ml PHYSICAL EXAM: General appearance: alert and oriented, oriented to person, place, and time, and anxious, daughter at bedside Neurological: Speech is slow but clear, 2/5 motor strength to RUE and RLE, no facial droop, GCS 15 Scalp: Skin intact, no lacerations or lesions noted Face: Structural elements stable, facial soft tissue normal Eyes: Tracking without difficulty, extra-ocular muscles intact, PERRL, patient relays blurry visionin both eyes, L > R Ears: Hearing impaired in bilateral ear, wearing head aids and able to hear Nose: Nasal septum midline, no rhinorrhea or epistaxis Mouth: Mucous membranes moist, no signficant deformity or malocclusion Neck: Trachea midline, Symmetric, [place] J collar in place Chest: No dyspnea or respiratory distress noted, sufficient air movement, broadly clear Heart: S1 and S2 normal, normal rate Abdomen: soft, nontender, nondistended Pelvis: stable pelvis, no signs of structural deformity and Rectal: no lesions or tenderness noted, grossly normal genitourinary exam Back exam: soft tissues broadly normal, no step-offs noted on thoracic or lumbar spine, no midline tenderness to cervical, thoracic, or lumbar regions Musculoskeletal: Motor and sensory grossly normal bilaterally to LUE and LLE, RUE and RLE with weakness when compared to LUE and LLE, sensation and distal pulses intact to all extremities Skin: warm and dry Psychiatric: Anxious LABS: Recent Labs Lab 01/20/25 0235 01/20/25 1124 WBC 4.74 4.85 HGB 13.5 13.2 HCT 40.4 38.5 PLT 177 176 INR -- 1.0 PTT -- 33.8 NA 137 135* K 3.6 4.2 CL 103 102 CO2 28.2 24.6 AGAP 5.8 8.4 BUN 10 12 CR 1.12 1.45* GLU 194* 272* CA 9.5 9.2 TP -- 6.6 ALB -- 2.9* TBIL -- 0.3 ALKP -- 87 AST -- 16 ALT -- 19 MAGNESIUM 1.6 -- PHOS 2.5 -- PH ARTERIAL Date Value Ref Range Status 05/10/2018 7.36 7.35 - 7.45 Final PCO2 Date Value Ref Range Status 05/10/2018 40 35.0 - 45.0 MM HG Final PO2 Date Value Ref Range Status 05/10/2018 75 (L) 80.0 - 100.0 MM HG Final O2 SATURATION Date Value Ref Range Status 05/09/2018 100.0 90.0 - 100.0 % Final BICARB ARTERIAL Date Value Ref Range Status 05/10/2018 22.6 22.0 - 26.0 MEQ/L Final BASE DEFICIT Date Value Ref Range Status 05/10/2018 2.7 MEQ/L Final BE/BASE EXCESS Date Value Ref Range Status 05/09/2018 0.0 MEQ/L Final No results for input(s): ABORH in the last 168 hours. No results for input(s): CKTOTAL in the last 168 hours. CULTURES & SENSITIVITIES: No results found for this visit on 01/19/25 (from the past 2 weeks). No results found for this visit on 01/19/25 (from the past 2 weeks). PATHOLOGY: * Cannot find OR log * IMAGING: Radiology Results (Last 30 days) 01/20/25 1658 MRI BRAIN WO CON Final result Impression: IMPRESSION: 1. Small acute left-sided strokes in the left basal ganglia and adjacent temporal lobe. Possible additional stroke in the inferomedial left temporal lobe. 2. Volume loss and probable small vessel disease. 3. Calvarial contour abnormality could be correlated with prior trauma. 4. Preliminary report was sent to Dr Gibbs by [employer] at 1825 hours on 01/20/2025. Referred By: ISAK KANG Interpreted By: Ryan Prasad MD, 01/20/2025 6:13 PM 01/20/25 1135 CTA HEAD+NECK Final result Impression: IMPRESSION: 1. No acute or significant cervicocerebral vascular abnormality identified. 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 See text. 2. 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 3. Additional chronic/nonurgent findings as described. Referred By: ISAK KANG Interpreted By: Atilio Varela MD, 01/20/2025 12:33 PM 01/20/[address] HEAD WO CON Final result Impression: IMPRESSION: 1. No acute intracranial process identified. 2. Cortical atrophy and small vessel disease. 3. 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 Clinical correlation required. Referred By: ISAK KANG Interpreted By: Atilio Varela MD, 01/20/2025 12:18 PM 01/19/25 2210 XR CERV SPINE LAT 1V Final result Impression: IMPRESSION: The known C2 fracture is not well depicted radiographically. No significant cortical step-off is seen involving the C2 vertebrae. Referred By: ISAK KANG Interpreted By: Alfie Davey MD, 01/20/2025 4:16 AM 01/19/252020 CTA NECK Final result Impression: IMPRESSION: 1. Ununited comminuted fracture of the base of the odontoid with 3 to 4 mm anterior displacement of the odontoid with respect to the body of C2 with diastases on the fracture line with adjacent mildly displaced fracture fragments. There is widening of the interspinous distance at C1-C2. 2. No vascular injury or extravasation. 3. Atherosclerotic calcifications in the aortic arch and distal left common carotid artery extending into the origin of left external carotid artery and minimally at the origin of the left carotid bulb with less than 50% stenosis. No hemodynamically significant stenosis or aneurysm in the cervical internal carotid arteries. 4. 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 5. 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 6. origin of right posterior cerebral artery from the supraclinoid right internal carotid artery with developmental hypoplasia of the right T1 segment of the basilar tip. 7. Severe hypoplasia or less likely atherosclerotic stenosis of the A1 segment of right anterior cerebral artery. The right A2 segment is supplied predominantly from the left anterior cerebral artery via the anterior communicating artery. 8. Please see above report for the other findings. Referred By: ISAK KANG Interpreted By: Maria G Gilbert MD, 01/19/2025 8:47 PM 01/19/252020 CT CHEST+ABD+PEL W CON Final result Impression: IMPRESSION: 1. No CT evidence of acute injury to the solid organs or hollow viscus of the abdomen and pelvis. Referred By: ISAK KANG Interpreted By: Trina Ferrera DO, 01/19/2025 8:43 PM Vital signs reviewed. I/Os reviewed. Labs personally reviewed. Imaging reviewed. R D Internship notes/recommendations reviewed. Discussed plan of care with trauma physician, primary RN, and patient. All questions were answered. Some documentation included herein was taken from a prior note, reviewed with the patient, and amended as needed to ensure accuracy. [facility] Trauma and Acute Care Surgery [id number] * Renee Hannon PA-C - 01/20/2025 8:06 AM CDT Images from the original note were not included. TRAUMA TERTIARY SURVEY RENEE HANNON PA-C, 01/20/2025, 12:[address] [facility] LEVEL 1 TRAUMA CENTER ACUTE CARE SURGERY SERVICE: EMERGENCY SURGERY, TRAUMA, SURGICAL CRITICAL CARE [address] [place] [address] TO CONTACT PROVIDERS: Trauma Surgeon/Critical Care Snow Removing Supervisor MD: [id number] Emergency Surgery MD: [id number] Advanced Practice Provider - Trauma: [id number] Advanced Practice Provider - Emergency Surgery [id number] Name: Олег Watson Date of : 1955 Room/Bed: [facility] Date: 01/20/2025 Time: 12:24 PM Mechanism of Injury: Fall CHIEF COMPLAINT: right sided weakness/blurry vision List all new injuries indentified in this survey: RUE and RLE strength 2-3/5 with blurry vision Plan for new injuries found: STAT stroke, please refer to significant event note for further details [facility]AK[facility] Trauma and Acute Care Surgery [id number] * Bravo Killian MD - 01/20/2025 6:44 AM CDT ORTHOPAEDIC SURGERY PROGRESS NOTE S: No acute events. Patient denies any numbness or tingling. He denies any new weakness. He is quite agitated this morning. O: Physical Exam: GEN: Patient in bed in collar quite agitated. He is following commands. MSK: Bilateral upper extremities: Grossly warm and well-perfused. Strength 5 out of 5 throughout elbow flexion, elbow extension, wrist extension, finger flexors, and finger abductors. Sensation intact to light touch in C5-T1 nerve distribution. Radial pulse 2+. Bilateral lower extremities: Grossly warm and well-perfused. Strength 5 out of 5 throughout to hip flexion, knee flexion, knee extension, ankle plantarflexion, ankle dorsiflexion, great toe dorsiflexion. Sensation grossly intact to light touch in L2-S1 nerve distributions. DP pulse 2+. ASSESSMENT/PLAN: Олег Watson is a 69-year-old male with a type II odontoid fracture. The fracture is likely chronic in nature. At this time the patient is neurologically intact. Patient is stable in cervical collar. Patient is free to be up ad jahaira. with no restrictions and collar at all times. Plan for patient tofollow-up in clinic with Dr. Montanez. Admitted to trauma [facility] Orth[facility] consulted (Dr. Montanez) Pain: As ordered Diet: Okay for diet from orthopedic standpoint Activity: Up ad jahaira. in collar Labs: No labs Imaging: Stable upright films Nursing: Maintain collar Dressing: Maintain collar DVT PPx: Per trauma Medical: Per trauma Dispo: no acute interventions planned Bravo Killian MD Cosigned by Jairo Montanez MD at 01/29/2025 9:38 AM CDT * Jayden Barrios RN - 01/20/2025 12:35 AM CDT Problem: Discharge Planning Goal: Knowledge of discharge instructions Outcome: Progressing Problem: Pain control/comfort Goal: Promote pain control/comfort Outcome: Progressing Problem: Skin integrity, Impaired-wound Goal: Absence of new skin breakdown Outcome: Progressing Goal: Evidence of wound healing Outcome: Progressing Problem: Skin integrity, Impaired-pressure injury/ulcer Goal: Absence of new skin breakdown Outcome: Progressing Goal: Evidence of pressure injury/ulcer healing Outcome: Progressing Problem: Skin integrity, at risk Goal: Absence of new skin breakdown Outcome: Progressing Problem: Moisture associated skin impairment Goal: Reduce moisture exposure Outcome: Progressing Goal: Evidence of wound healing Outcome: Progressing Goal: Evidence of pressure injury/ulcer healing Outcome: Progressing Goal: Absence of new skin breakdown Outcome: Progressing Problem: Reduced risk for falls/injury Goal: Reduced Risk for Falls/Injury Outcome: Progressing Goal: Reduced Risk of Confusion (Acute vs Chronic) Outcome: Progressing Goal: Reduced Risk of Symptomatic Depression Outcome: Progressing Goal: Reduced Risk of Altered Elimination Outcome: Progressing Goal: Reduced Risk of Dizziness/Vertigo/Balance Outcome: Progressing * CLAUDIA Ryan - 01/19/2025 7:[address] German moved head of bed up to 45 degrees at this time * CLAUDIA Ryan - 01/19/2025 7:10 PM CDT Pt rolled at this time to check for any injuries with NOEMY Moses at head of bed and c-spine precautions maintained. Pt able to move extremities and sensation intact before and after pt was rolled. * CLAUDIA Ryan - 01/19/2025 7:07 PM CDT Pt moved from EMS stretcher to ED stretcher at this time with NOEMY Moses at the head of the bed. C-spine precautions maintained. Pt able to move extremities and sensation intact pre and post move. * CLAUDIA Ryan - 01/19/2025 7:06 PM CDT Pt arrives to ED via EMS as a level 3 transfer from [facility] following a fall at 01/18 at 1900. Pt noted to have a C-2 fracture from imaging received from outlying facility. Pt arrives in C-collar. MD and trauma doc at bedside at arrival. documented in this encounter H&P Notes * Tonia Medrano, STER[place]ING - 01/24/2025 8:27 AM CDT Images from the original note were not included. [employer] Hospitalist History & Physical Attending Provider: Naya Gonzalez MD PCP: DONNIE TIMMONS Reason for Admission: Category 3 Trauma, Ground-level fall, chronic C2 fracture, ischemic stroke, uncontrolled type II diabetes Assessment / Plan: 1. Chronic C2 fracture, ground-level fall 01/19/2025 Admitted by trauma service, transition to hospitalist 01/24/2025 [place] cervical collar at all times per ortho-spine PT/OT recommending inpatient rehab, referrals pending Pain control CBC, BMP tomorrow a.m. Fall precautions Wean oxygen as tolerated No evidence of rhabdomyolysis Outpatient follow-up with Dr. Montanez 2. Acute ischemic stroke, RUE/RLE weakness, dysarthria, dysphagia Left basal ganglia and adjacent temporal lobe small acute strokes on MRI from 01/20/2025 Failed bedside swallow, NPO per DIRECTOR OF MEDICARE, note plan for LOY this week if continues to fail swallow study Meds per tatum Oharaitian consulted for tube feeds, appreciate their recommendations -- Daily CBC,BMP, Mg, and Phos Strict I&O Stroke team following, appreciate their recommendations PM&R following, appreciate their recommendations, awaiting improvement in advance diet versus PEG for inpatient rehab Continue ASA and statin Monitor on telemetry Routine neurochecks Routine VS PT/OT recommending inpatient rehab, referrals pending 3. Uncontrolled type II diabetes Patient's home regimen includes Lantus and lispro, patient reports compliance Most recent HbA1c 12.3% from 01/19/2025 [facility] endocrinology consulted, appreciate their recommendations Accucheck every 4 hours Continue Lantus 12 units at bedtime & lispro per sliding scale until evaluated by endocrinology Hypoglycemia protocol NPO until cleared by speech 4. HTN Continue to monitor hypertension with VS every 4 hours Continue lisinopril, metoprolol tartrate 5. Hx MA, CABG, mitral regurgitation Add complexity to case repairer on telemetry Body mass index is 28.73 kg/m??. DVT prophylaxis: Lovenox every 12 hours CODE STATUS: Full code I spent a total of 40 minutes [id number] with the patient, reviewing the patient's chart, clinical decision making, and documentation of patient's care. HPI: Олег Watson is a 69-year-old male with PMH of uncontrolled type 2 diabetes mellitus, HTN, MA, CABG, and mitral regurgitation presented to ED on 01/19/2025 as a category 3 trauma with ground-level fall. He was found to have chronic C2 fracture, no acute injuries. Stat stroke was called on 01/20/2025nd MRI brain demonstrated left-sided ischemic stroke in the basal ganglia and adjacent temporal lobe. Patient was evaluated by neurovascular team, ortho-spine, and PM&R. He failed bedside swallow and also failed DIRECTOR OF MEDICARE eval. Currently has Keofed with tube feeds, DIRECTOR OF MEDICARE continues to follow for advancing diet versus PEG tube. PT/OT recommending inpatient rehab, referrals have been sent by case management. Hospitalist team was contacted on 01/24/2025 to take over as primary service. Patient reports he has been feeling okay. He reports discomfort from the c- collar which he contributes to his difficulty swallowing. He wants to be able to eat, but is agreeable to PEG tube if needed. Denies headaches or dizziness. Denies chest pain, palpitations, and shortness of breath. No home oxygen. Reports he lives alone and manages his Lantus and lispro at home. Denies abdominal pain, nausea, vomiting, diarrhea, and black/bloody stools. No known allergies. Full code. Discussed with case management, reports patient was evaluated for [place] inpatient rehab yesterday and is likely a good candidate pending nutrition status. Currently with Keofed, DIRECTOR OF MEDICARE to evaluate today, possible LOY. Patient will need advanced diet or PEG for inpatient rehab placement. Labs today demonstrate normal electrolytes, serum glucose remains elevated at 323. POC glucose remains elevated 200-500. Normal Mg, normal Phos. WBC 10.93. HbA1c 12.3% on 01/19/2025. C-spine x-ray from 01/19/2025 demonstrated known C2 fracture not well depicted radiographically, no significant cortical step-off seen involving the C2 vertebrae. CTA neck from 01/19/2025 demonstrated ununited comminuted fracture of the base of the odontoid with 3 to 4 mm anterior displacement of the odontoid with respect to the body of C2 with diastases on thefracture line with adjacent mildly displaced fracture fragments. Widening interspinous distance at C1-C2. No vascular injury or extravasation. Atherosclerotic calcifications in the aortic arch and distal left common carotid artery extending into the origin of left external carotid artery and minimally at the origin of the left carotid bulb with less than 50% stenosis. No hemodynamically significant stenosis or aneurysm in the cervical internal carotid arteries. Intracranial right vertebral artery appears to terminate as the right posterior inferior cerebral artery, a developmental variant. 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 origin of right posterior cerebral artery from the supraclinoid right internal carotid artery with developmental hypoplasia of the right P1 segment of the basilar tip. Severe hypoplasia or less likely atherosclerotic stenosis of the A1 segment of right anterior cerebral artery. Right A2 segment is supplied predominantly from the left anterior cerebral artery via the anterior communicating artery. CT chest/abdomen/pelvis from 01/19/2025 demonstrated no acute traumatic injury to the thoracic or abdominal aorta. No pneumothorax. No congestion or pneumonia or pleural effusion. Opacification of thelingula and left lower lobe seen on trauma chest radiograph now seen to be superposition of large left pericardial fat pad and elevated left diaphragm. Chronic findings suggestive of bronchitis or bro nchiolitis. No acute fracture in the bony thorax. No acute fracture in the thoracolumbar spine, pelvis, or hips. Old wedge compression deformity T10. CT head (stroke protocol) from 01/20/2025 demonstrated no acute intracranial process. Cortical atrophy and small vessel disease. 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 CTA head/neck from 01/20/2025 demonstrated no acute or significant cervicocerebral vascular abnormality. Numerous congenital variants. Probable chronic nonunited type II odontoid fracture. Chronic/nonemergent findings. MRI brain from 01/20/2025 demonstrated small acute left-sided strokes in the left basal ganglia and adjacent temporal lobe. Possible additional stroke in the inferomedial left temporal lobe. Volume loss and probable small vessel disease. Calvarial contour abnormality correlated with prior trauma. MRI C-spine from 01/20/2025 demonstrated no convincing evidence of cord contusion, however significant artifact predominantly related patient motion significantly limited evaluation. Chronic nonunitedC2 fracture. TTE from 01/21/2025 demonstrated EF 63%. Trace mitral regurg. Trace pulmonic regurg. Past Medical History: Diagnosis Date Acute myocardial infarction ([facility]) Ankle fracture Closed; fracture left fibula Chest pain Closed fracture of distal end of fibula 05/18/2013 Date Onset: 05/18/2013 Coronary artery disease Diabetes ([facility]) Diabetes mellitus, type 2 ([facility]) Diabetic ketoacidosis without coma associated with diabetes mellitus due to underlying condition ([facility]) 03/19/2023 DKA (diabetic ketoacidosis) ([facility]) 03/19/2023 Essential hypertension 07/26/2018 Eustachian tube dysfunction 06/13/2015 Date Onset: 06/13/2015 HLD (hyperlipidemia) Hx of CABG Microalbuminuria Myocardial infarction ([facility]) 07/11/2018 Non-rheumatic mitral regurgitation Noncompliance with medication regimen 12/24/2021 Situational stress 06/13/2015 Past Surgical History: Procedure Laterality Date 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 Hutchins [facility], next scope 5 yr Review of patient's allergies indicates: No Known Allergies Social History Tobacco Use Smoking status: Former Current packs/day: 0.00 Types: Cigarettes Start date: 1968 Quit date: 1970 Years since quittin.2 Smokeless tobacco: Never Substance Use Topics Alcohol use: Not Currently Comment: quit before 2021 Family History Problem Relation Name Age of Onset Diabetes Brother Hypertension Son Diabetes Maternal Uncle Diabetes Sister concepcion No current facility-administered medications on file prior to encounter. Current Outpatient Medications on File Prior to Encounter Medication Sig aspirin EC (ECOTRIN) 81 MG tablet Take 1 tablet (81 mg total) by mouth daily. lisinopril (PRINIVIL) 5 MG tablet Take 1 tablet (5 mg total) by mouth daily. metoprolol succinate ER (TOPROL-XL) 25 MG 24 hr tablet Take 1 tablet (25 mg total) by mouth daily. pantoprazole EC (PROTONIX) 40 MG tablet take 1 tablet by mouth every day silver sulfADIAZINE (SILVADENE) 1 % cream Apply topically 2 (two) times daily. atorvastatin (LIPITOR) 40 MG tablet Take 1 tablet (40 mg total) by mouth every other day. glimepiride (AMARYL) 2 MG tablet Take 1 tablet (2 mg total) by mouth every morning before breakfast. Glucose Blood ([employer] ULTRA) test strip Use as instructed -- Test blood sugar BID and PRN DX: E11.65 insulin lispro, 1 Unit Dial, (HUMALOG) 100 UNIT/ML injection (PEN) Inject 8-14 Units into the skin 2 (two) times daily. Insulin Pen Needle (PEN NEEDLES) 31G X 8 MM Misc 1 each by Does not apply route daily. metFORMIN (GLUCOPHAGE) 1000 MG tablet BID pioglitazone (ACTOS) 30 MG tablet Take 1 tablet (30 mg total) by mouth daily. Review of Systems Constitutional: Negative for chills, diaphoresis and fever. HENT: Negative for congestion and sore throat. Eyes: Negative for blurred vision, double vision and photophobia. Respiratory: Negative for cough, hemoptysis, sputum production, shortness of breath and wheezing. Cardiovascular: Negative for chest pain, palpitations, orthopnea, claudication, leg swelling and PND. Gastrointestinal: Negative for abdominal pain, blood in stool, constipation, diarrhea, heartburn, melena, nausea and vomiting. Genitourinary: Negative for dysuria, flank pain, frequency, hematuria and urgency. Musculoskeletal: Positive for neck pain. Negative for back pain, falls, joint pain and myalgias. Skin: Negative for itching and rash. Neurological: Positive for weakness. Negative for dizziness, tingling, speech change, focal weakness, seizures and headaches. Psychiatric/Behavioral: Negative for depression and substance abuse. The patient is not nervous/anxious. Blood pressure (!) 155/77, pulse (!) 110, temperature 98.9 ??F (37.2 ??C), temperature source Oral,resp. rate 20, height 1.803 m (5' 11 ), weight 93.4 kg (206 lb), SpO2 95%. Physical Exam Vitals and nursing note reviewed. Constitutional: General: He is not in acute distress. Appearance: Normal appearance. He is normal weight. He is not ill-appearing, toxic-appearing or diaphoretic. Interventions: Cervical collar and nasal cannula in place. HENT: Head: Normocephalic and atraumatic. Nose: Comments: Right nare Keofed in place Mouth/Throat: Mouth: Mucous membranes are dry. Eyes: General: No scleral icterus. Extraocular Movements: Extraocular movements intact. Conjunctiva/sclera: Conjunctivae normal. Pupils: Pupils are equal, round, and reactive to light. Neck: Comments: [place] J collar in place Cardiovascular: Rate and Rhythm: Regular rhythm. Tachycardia present. Pulses: Normal pulses. Heart sounds: Normal heart sounds. No murmur heard. No gallop. Pulmonary: Effort: Pulmonary effort is normal. No respiratory distress. Breath sounds: Normal breath sounds. No wheezing or rales. Abdominal: General: Bowel sounds are normal. There is no distension. Palpations: Abdomen is soft. Tenderness: There is no abdominal tenderness. There is no guarding. Musculoskeletal: General: Normal range of motion. Cervical back: Normal range of motion and neck supple. No rigidity or tenderness. Right lower leg: No edema. Left lower leg: No edema. Skin: General: Skin is warm and dry. Capillary Refill: Capillary refill takes less than 2 seconds. Coloration: Skin is not jaundiced. Neurological: Mental Status: He is alert and oriented to person, place, and time. Mental status is at baseline. Cranial Nerves: Dysarthria present. Motor: Weakness (RUE weakness, RLE weakness) present. Psychiatric: Attention and Perception: Attention normal. Mood and Affect: Mood normal. Speech: Speech normal. Behavior: Behavior normal. Thought Content: Thought content normal. Judgment: Judgment normal. Recent Labs 01/22/25 0611 01/23/25 0839 01/24/25 0705 WBC 4.67 7.95 10.93* HGB 13.6 13.9 14.4 HCT 41.1 40.8 42.5 MCV 89.5 85.9 86.2 PLT 179 217 201 RBC 4.59 4.75 4.93 Recent Labs Lab 01/20/25 1124 01/21/25 0340 01/22/25 0611 01/23/25 0839 01/24/25 0126 NA 135* < > 136 134* 136 K 4.2 < > 3.9 3.7 3.7 CL 102 < > 104 99 100 CO2 24.6 < > 22.8 25.4 26.9 AGAP 8.4 < > 9.2 9.6 9.1 BUN 12 < > 13 13 16 CR 1.45* < > 1.14 1.16 1.14 GLU 272* < > 234* 302* 323* CA 9.2 < > 9.1 9.2 9.5 TP 6.6 -- -- -- -- ALB 2.9* -- -- -- -- TBIL 0.3 -- -- -- -- ALKP 87 -- -- -- -- AST 16 -- -- -- -- ALT 19 -- -- -- -- < > = values in this interval not displayed. Recent Labs Lab 01/20/25 1124 INR 1.0 Results for orders placed or performed during the hospital encounter of 01/19/25 ECG 12 lead Narrative [address] [address] Test Date: 2025-01-20 Pat Name: ОЛЕГ WATSON Department: 1 Room: 72[facility] Gender: Male Legislators: Mike : 1955 Requested By: SANDRA RAY Order Number: [id number] Reading MD: Wil Rogers Measurements Intervals [place] Rate: 89 P: 12 WI: 176 QRS: 21 QRSD: 98 T: 47 QT: 358 QTc: 436 Interpretive Statements SINUS RHYTHM POSSIBLE LEFT ATRIAL ENLARGEMENT [-0.1mV P-WAVE IN V1/V2] POSSIBLE ANTERIOR MYOCARDIAL INFARCTION , OF INDETERMINATE AGE [30 ms Q WAVE IN V3/V4, OR R < 0.2 mV IN V4] No results found. TONIA MEDRANO NP 01/24/2025 Cosigned by Naya Gonzalez MD at 01/24/2025 5:12 PM CDT Associated attestation - Naya Gonzalez MD - 01/24/2025 5:12 PM CDT Images from the original note were not included. I, NAYA GONZALEZ MD, seen and examined the patient and discussed the management with the Mid-Level Provider. I reviewed the MLP's note and agree with the findings and plan of care, except as I have documented. Plan of care developed under my direct supervision. Patient seen and examined by me Chronic C2 fracture trauma following outpatient follow-up with Dr. Lisseth nice at all time Acute ischemic stroke, RUE/RLE weakness, dysarthria, dysphagia Left basal ganglia and adjacent temporal lobe small acute strokes on MRI from 01/20/2025 Failed bedside swallow, NPO per DIRECTOR OF MEDICARE, note plan for LOY this week if continues to fail swallow study Meds per Mayda, dietitian consulted for tube feeds, appreciate their recommendations -- Daily CBC,BMP, Mg, and Phos Strict I&O Stroke team following, appreciate their recommendations Some concern for worsening weakness on the right side neurology following repeat CT did not show any new changes PM&R following, appreciate their recommendations, awaiting improvement in advance diet versus PEG for inpatient rehab Continue ASA and statin Monitor on telemetry Routine neurochecks Routine VS PT/OT recommending inpatient rehab, referrals pending Neurology will get EP consult for event monitor . Uncontrolled type II diabetes Patient's home regimen includes Lantus and lispro, patient reports compliance Most recent HbA1c 12.3% from 01/19/2025 [facility] endocrinology consulted, appreciate their recommendations Accucheck every 4 hours Continue Lantus 12 units at bedtime & lispro per sliding scale until evaluated by endocrinology Hypoglycemia protocol NPO until cleared by speech HTN Continue to monitor hypertension with VS every 4 hours Continue lisinopril, metoprolol tartrate . Hx MA, CABG, mitral regurgitation Add complexity to case repairer on telemetry Increased secretions today added scopolamine patch RT to evaluate For suction Body mass index is 28.73 kg/m??. DVT prophylaxis: Lovenox every 12 hours CODE STATUS: Full code Complex high risk patient with multiple medical problems discussed with neurology discussed with trauma team * Romulo German MD - 01/19/2025 10:02 PM CDT Images from the original note were not included. HISTORY AND PHYSICAL TRAUMA/ACUTE CARE SURGERY SERVICE ROMULO GERMAN MD, 01/19/2025, 10:[address] [facility] LEVEL [facility] TRAUMA CENTER ACUTE CARE SURGERY SERVICE: EMERGENCY SURGERY, TRAUMA, SURGICAL CRITICAL CARE [address] [place] [address] TO CONTACT PROVIDERS: Critical Care Snow Removing Supervisor/Trauma Surgeon MD: [id number] Emergency Surgery MD: [id number] Advanced Practice Provider - Trauma: [id number] Advanced Practice Provider - Emergency Surgery [id number] Name: Олег Watson Date of : 1955 Room/Bed: [facility] Date: 01/19/2025 Time: 10:02 PM CHIEF COMPLAINT: Category 3 Trauma. Mechanism of Injury: Fall. HOSPITAL DIAGNOSES: Closed C2 fracture ([facility]) HISTORY OF PRESENT ILLNESS: Олег Watson is a 69-year-old male brought in by EMS as a Category 3 trauma and was in cervical collar, but not boarded on presentation. The patient had sustained a ground level fall and was down on the ground overnight. And picked up this morning around 11am. Brought to [facility] where ct showed possible acute vs chronic odontoid fracture. Transfer requested. On arrival patient had intact primary survey. Grossly moving all extremities and alert and oriented. Denies headache, vision changes, neck or back pain, CP, SOB, abdominal pain, N/V/C/D, or dysuria. PRIMARY SURVEY Airway: Airway Patent Breathing: Lung sounds auscultated bilaterally. Circulation: Bilateral radial, femoral and pedal pulses were palpable. Disability: Pupils were equal and reactive. GCS: 15 Exposure: Patient was completely exposed and no injury was found PAST MEDICAL HISTORY: Past Medical History: Diagnosis Date Acute myocardial infarction ([facility]) Ankle fracture Closed; fracture left fibula Chest pain Closed fracture of distal end of fibula 05/18/2013 Date Onset: 05/18/2013 Coronary artery disease Diabetes ([facility]) Diabetes mellitus, type 2 ([facility]) Diabetic ketoacidosis without coma associated with diabetes mellitus due to underlying condition ([facility]) 03/19/2023 DKA (diabetic ketoacidosis) ([facility]) 03/19/2023 Essential hypertension 07/26/2018 Eustachian tube dysfunction 06/13/2015 Date Onset: 06/13/2015 HLD (hyperlipidemia) Hx of CABG Microalbuminuria Myocardial infarction ([facility]) 07/11/2018 Non-rheumatic mitral regurgitation Noncompliance with medication regimen 12/24/2021 Situational stress 06/13/2015 PAST SURGICAL HISTORY: Past Surgical History: Procedure Laterality Date 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 Hutchins [facility], next scope 5 yr ALLERGIES: No Known Allergies HOME MEDICATIONS: Prior to Admission medications Medication Sig Start Date End Date Taking? Authorizing Provider aspirin EC (ECOTRIN) 81 MG tablet Take 1 tablet (81 mg total) by mouth daily. 06/01/24 DONNIE Timmons atorvastatin (LIPITOR) 40 MG tablet Take 1 tablet (40 mg total) by mouth every other day. 11/01/24 DONNIE Timmons glimepiride (AMARYL) 2 MG tablet Take 1 tablet (2 mg total) by mouth every morning before breakfast. 03/07/24 Default History Genericprovider Glucose Blood ([employer] ULTRA) test strip Use as instructed -- Test blood sugar BID and PRN DX: E11.65 08/26/23 DONNIE Timmons insulin lispro, 1 Unit Dial, (HUMALOG) 100 UNIT/ML injection (PEN) Inject 8-14 Units into the skin 2 (two) times daily. 01/19/24 Default History Genericprovider Insulin Pen Needle (PEN NEEDLES) 31G X 8 MM Misc 1 each by Does not apply route daily. 03/31/23 Nemesio Larkin MD lisinopril (PRINIVIL) 5 MG tablet Take 1 tablet (5 mg total) by mouth daily. 11/01/24 DONNIE Timmons metFORMIN (GLUCOPHAGE) 1000 MG tablet BID 09/13/23 Nemesio Larkin MD metoprolol succinate ER (TOPROL-XL) 25 MG 24 hr tablet Take 1 tablet (25 mg total) by mouth daily. 11/01/24 DONNIE Timmons pantoprazole EC (PROTONIX) 40 MG tablet take 1 tablet by mouth every day 06/06/24 DONNIE Timmons pioglitazone (ACTOS) 30 MG tablet Take 1 tablet (30 mg total) by mouth daily. 02/07/24 Default History Genericprovider silver sulfADIAZINE (SILVADENE) 1 % cream Apply topically 2 (two) times daily. 12/14/24 Devan Henderson DPM SOCIAL HISTORY: Social History Tobacco Use Smoking status: Former Current packs/day: 0.00 Types: Cigarettes Start date: 1968 Quit date: 1969 Years since quittin.2 Smokeless tobacco: Never Substance Use Topics Alcohol use: Not Currently Comment: quit before 2021 FAMILY HISTORY: Family history was not obtained at the time of assessment REVIEW OF SYSTEMS: Pertinent items are noted in HPI. VITALS: ED Triage Vitals [01/19/251913] Encounter Vitals Group BP (!) 143/92 Systolic BP Percentile Diastolic BP Percentile Pulse 86 Resp 15 Temp 98.6 ??F (37 ??C) Temp src Oral SpO2 95 % Weight 93.4 kg (206 lb) Height 1.803 m (5' 11 ) Head Circumference Peak Flow Pain Score Pain Loc Pain Education Exclude from Growth Chart PHYSICAL EXAM: General: No acute distress Neuro: Oriented, moving all extremities grossly, sensation intact Head/Neck: In C collar Chest: Normal respirations Abdomen: Soft Extremities: No signs of injury LABORATORY RESULTS: No results for input(s): WBC , HGB , HCT , PLT , APTT , INR , PTT , NA , K , CL , CO2 , AGAP , BUN , CR , BUNCREATININ , GLU , CA , TP , ALB , TBIL , ALKP , AST , ALT , MAGNESIUM , PHOS in the last 168 hours. Invalid input(s): LACTATE PH ARTERIAL Date Value Ref Range Status 05/10/2018 7.36 7.35 - 7.45 Final PCO2 Date Value Ref Range Status 05/10/2018 40 35.0 - 45.0 MM HG Final PO2 Date Value Ref Range Status 05/10/2018 75 (L) 80.0 - 100.0 MM HG Final O2 SATURATION Date Value Ref Range Status 05/09/2018 100.0 90.0 - 100.0 % Final BICARB ARTERIAL Date Value Ref Range Status 05/10/2018 22.6 22.0 - 26.0 MEQ/L Final BASE DEFICIT Date Value Ref Range Status 05/10/2018 2.7 MEQ/L Final BE/BASE EXCESS Date Value Ref Range Status 05/09/2018 0.0 MEQ/L Final No results for input(s): ABORH in the last 168 hours. No results for input(s): CKTOTAL in the last 168 hours. IMAGING: Radiology Results (Last 30 days) 01/19/252020 CTA NECK Final result Impression: IMPRESSION: 1. Ununited comminuted fracture of the base of the odontoid with 3 to 4 mm anterior displacement of the odontoid with respect to the body of C2 with diastases on the fracture line with adjacent mildly displaced fracture fragments. There is widening of the interspinous distance at C1-C2. 2. No vascular injury or extravasation. 3. Atherosclerotic calcifications in the aortic arch and distal left common carotid artery extending into the origin of left external carotid artery and minimally at the origin of the left carotid bulb with less than 50% stenosis. No hemodynamically significant stenosis or aneurysm in the cervical internal carotid arteries. 4. 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 5. 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 6. origin of right posterior cerebral artery from the supraclinoid right internal carotid artery with developmental hypoplasia of the right T1 segment of the basilar tip. 7. Severe hypoplasia or less likely atherosclerotic stenosis of the A1 segment of right anterior cerebral artery. The right A2 segment is supplied predominantly from the left anterior cerebral artery via the anterior communicating artery. 8. Please see above report for the other findings. Referred By: ISAK KANG Interpreted By: Maria G Gilbert MD, 01/19/2025 8:47 PM 01/19/252020 CT CHEST+ABD+PEL W CON Final result Impression: IMPRESSION: 1. No CT evidence of acute injury to the solid organs or hollow viscus of the abdomen and pelvis. Referred By: ISAK KANG Interpreted By: Trina Ferrera DO, 01/19/2025 8:43 PM ASSESSMENT: Олег Watson is a 69-year-old male who presented as a trauma involved in a Fall. INJURY SUMMARY: Closed C2 fracture ([facility]/HCC HHS/HCC) Head: None Cervical Spine: Chronic type II odontoid fracture Thoracic/Lumbar Spine: None Chest: None Abdomen/Pelvis: None Extremities: None Skin/Soft tissue: None PLAN: Patient Disposition: IMCU Spine surgery consulted, no intervention planned, will manage with C collar PT/OT ordered Diet as tolerated Sliding scale insulin ordered Lantus 5u qhs ordered (normally takes 12u) Resume home metoprolol, lipitor, lisinopril, and protonix OK for DVT prophylaxis Cervical Spine Precautions: Maintain in C collar Thoracolumbar Spine Precautions: Cleared Code: Full Code Consultations: Spine Surg (Bharath Wadsworth) Critical Care: None I personally spent a total of 60 minutes on this patient on this date of service reviewing the electronic medical record, interpreting labs and imaging, examining the patient, communicating with consultants, formulating a plan, and counseling patient and family. Romulo German M.D. Trauma/Acute Care Surgery [id number] documented in this encounter Procedure Notes * Annette Poole MD - 01/29/2025 11:12 AM CDT Images from the original note were not included. [facility] Vascular & Interventional Radiology Interventional Radiology Post Procedure Note Pre Op Diagnosis: Dysphagia. Post Op Diagnosis: Same. Procedure: IR image guided gastrostomy tube placement. Interventional Radiologist: ANNETTE BAKER MD Hydrogeology Professor: SMITA Garza. Anesthesia: Local - 1% Lidocaine IV Moderate Sedation (Patient was re-evaluated immediately prior to sedation). Findings: See EPIC imaging tab for full dictation. Complications: None Estimated Blood Loss: nil Specimens Removed: None Implants: 18-Fr gastrostomy tube. Condition: Stable Impression: Successful image guided percutaneous gastrostomy tube placement (18-Fr). PLAN: 1. Bed rest 2 hours. Transfer to inpatient room when recovery room criteria is met. 2. Leave G-tube to LIS for the next 12 hours. No tube feeds for 24 hours. After 24 hours, may begintube feeds if there is no signs of peritonitis and hemoglobin is stable on 01/30/25. Flush catheter lumen after each use. 3. IR follow-up in 6 months for routine exchange, or sooner if clinically indicated. Thank you for allowing Vascular Interventional Radiology assist in this patient's care! Annette Baker M.D Vascular & Interventional Radiologist Department of Radiology, Section of Vascular & Interventional Radiology [facility] ANNTETE BAKER MD 01/29/2025 documented in this encounter Consult Notes * John Greenberg NP - 01/25/2025 8:36 AM CDT Images from the original note were not included. Cardiac Electrophysiology Consult/Admission Note PATIENT NAME: Олег Watson : 1955 REFERRING PROVIDER: Isak Kang PCP: DONNIE TIMMONS REASON FOR ADMISSION Acute ischemic stroke REASON FOR CONSULTATION Query: Embolic stroke of undetermined source PRIOR CARDIAC HISTORY, CARDIAC TESTS, & OTHER RELEVANT HISTORY Telemetry Currently in sinus tach in the low 100s beats per minute. No atrial fibrillation and flutter noted. ECG/s 01/20/2025: SR 89 bpm, WI 176 ms, QRS 98 ms, and QTc 436 ms. Prior ECGs were all sinus rhythm. Echo 01/11/2025 The left ventricular size is normal. The left ventricular systolic function is normal. The calculated ejection fraction is 63%. The right ventricle size is normal. The right ventricular function is normal. The left atrial volume is normal ( less than 34 ml/M2). Right atrial size is normal. The agitated saline injection showed no clear evidence of shunting into the left atrium, consistentwith no patent foramen ovale. Normal aortic root. Pulmonary vein velocity is consistent with normal left atrial pressures. Inferior vena cava shows >50% collapse with respiration consistent with normal right atrial pressure. The aortic valve is trileaflet. Structurally normal mitral valve. Trace mitral regurgitation. There is trace pulmonic regurgitation Structurally normal tricuspid valve. PARAG 05/09/2018 Limited intraoperative study. Normal LV and RV size and function both before and after bypass. Mild MR. Coronary angiogram 05/02/2018: Diagnostic Catheterization Findings Cath Result: Abnormal Coronary Dominance: Co-dominant Coronary Artery Disease: Yes LM Stenosis: 0% LAD Stenosis: 80% Other LAD (Distal/Diagonal): 100% RCA Stenosis: 80% CIRC Stenosis: 80% Comments on Coronary Arteries Left Main: 0% LAD: 80% proximal left anterior descending artery stenosis. 100% mid left anterior descending artery occlusion. Distal left anterior descending artery fills by [id number] collaterals. Circumflex: Long 80% stenosis in obtuse marginal one branch and left posterolateral branch. RCA: Long 80% stenosis mid right coronary artery. Left Ventriculography EF: 72% Stress test 04/19/2018 Radiology: Radiology Results (Last 48 hours) 01/24/252029 XR CHEST PORTABLE Final result Impression: IMPRESSION:===== 1. NO ACUTE CARDIOPULMONARY FINDINGS. Referred By: ISAK KANG Interpreted By: Jad Erazo MD, 01/24/2025 8:55 PM 01/24/[address] HEAD WO CON Final result Impression: IMPRESSION: No CT evidence of an acute intracranial abnormality. Ordered By: ROBIN SHARMA Interpreted By: Romulo Bales MD, 01/24/2025 3:06 PM HISTORY OF PRESENT ILLNESS Олег Watson is a 69-year-old male with past medical history of hypertension, hyperlipidemia, uncontrolled type 2 diabetes mellitus, coronary artery disease status post CABG, mitral regurgitation who presented to [facility] on 01/19/2025 after a ground-level fall and was later found to have a right hemiparesis. Patient was then found to have acute ischemic stroke for which InterventionalNeurology was consulted. Work-up showed: CT head on 01/20 showed no hemorrhage. CTA head and neck on 01/20 showed no LVO. No significant carotid stenosis. MRI brain on 01/20 showed a small acute stroke to the left basal ganglia and left temporal lobe (left anterior choroidal territory). Echo on 01/21 showed EF 63%, left atrial volume normal, no PFO. Today, Cardiac EP was consulted with concern for embolic stroke of undetermined source. Limited evaluation with patient being lethargic and dysarthric. He though denied chest pain and palpitations. He endorsed some shortness of breath. Patient's daughter who was at bedside, reported that patient isalert, oriented x 4, and active prior to the fall and stroke event. MEDICATIONS Scheduled Meds: aspirin 81 mg Tube Daily atorvastatin 80 mg Tube Nightly at bedtime enoxaparin 30 mg Subcutaneous Q12H insulin glargine 16 Units Subcutaneous BID insulin lispro 0-12 Units Subcutaneous Q4H lansoprazole 30 mg Tube QAM AC lidocaine 1 patch Transdermal Q24H lisinopril 5 mg Tube Daily metoprolol tartrate 25 mg Tube BID multivitamin 1 tablet Tube Daily protein supplement 1 packet Feeding Tube Daily scopolamine 1 patch Transdermal Q72H senna-docusate 1 tablet Tube BID thiamine 100 mg Tube Daily Continuous Infusions: TF diabetic w/Fiber 65 mL/hr (01/24/25 1401) PRN Meds: acetaminophen OR acetaminophen OR acetaminophen, hydrALAZINE, HYDROcodone-acetaminophen, labetalol, naLOXone, ondansetron, oxyCODONE immediate release Meds Prior to Admission: Medications Prior to Admission Medication Sig Dispense Refill aspirin EC (ECOTRIN) 81 MG tablet Take 1 tablet (81 mg total) by mouth daily. 90 tablet 3 lisinopril (PRINIVIL) 5 MG tablet Take 1 tablet (5 mg total) by mouth daily. 90 tablet 1 metoprolol succinate ER (TOPROL-XL) 25 MG 24 hr tablet Take 1 tablet (25 mg total) by mouth daily. 90 tablet 1 pantoprazole EC (PROTONIX) 40 MG tablet take 1 tablet by mouth every day 90 tablet 1 silver sulfADIAZINE (SILVADENE) 1 % cream Apply topically 2 (two) times daily. 25 g 3 atorvastatin (LIPITOR) 40 MG tablet Take 1 tablet (40 mg total) by mouth every other day. 45 tablet1 glimepiride (AMARYL) 2 MG tablet Take 1 tablet (2 mg total) by mouth every morning before breakfast. Glucose Blood ([employer] ULTRA) test strip Use as instructed -- Test blood sugar BID and PRN DX: E11.65 200 strip 3 insulin lispro, 1 Unit Dial, (HUMALOG) 100 UNIT/ML injection (PEN) Inject 8-14 Units into the skin 2 (two) times daily. Insulin Pen Needle (PEN NEEDLES) 31G X 8 MM Misc 1 each by Does not apply route daily. 100 each 3 metFORMIN (GLUCOPHAGE) 1000 MG tablet BID 180 tablet 3 pioglitazone (ACTOS) 30 MG tablet Take 1 tablet (30 mg total) by mouth daily. ALLERGIES No Known Allergies PAST HISTORY Past Medical History: Diagnosis Date Acute myocardial infarction ([facility]) Ankle fracture Closed; fracture left fibula Chest pain Closed fracture of distal end of fibula 05/18/2013 Date Onset: 05/18/2013 Coronary artery disease Diabetes ([facility]) Diabetes mellitus, type 2 ([facility]) Diabetic ketoacidosis without coma associated with diabetes mellitus due to underlying condition ([facility]) 03/19/2023 DKA (diabetic ketoacidosis) ([facility]) 03/19/2023 Essential hypertension 07/26/2018 Eustachian tube dysfunction 06/13/2015 Date Onset: 06/13/2015 HLD (hyperlipidemia) Hx of CABG Microalbuminuria Myocardial infarction ([facility]) 07/11/2018 Non-rheumatic mitral regurgitation Noncompliance with medication regimen 12/24/2021 Situational stress 06/13/2015 Past Surgical History: Procedure Laterality Date 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 Hutchins [facility], next scope 5 yr Social History Tobacco Use Smoking status: Former Current packs/day: 0.00 Types: Cigarettes Start date: 1968 Quit date: 1969 Years since quittin.2 Smokeless tobacco: Never Vaping Use Vaping status: Never Used Substance Use Topics Alcohol use: Not Currently Comment: quit before 2021 Drug use: Not Currently Types: Marijuana Comment: occassional, not very often Family History Problem Relation Name Age of Onset Diabetes Brother Hypertension Son Diabetes Maternal Uncle Diabetes Sister concepcion PHYSICAL EXAMINATION Vitals: Filed Vitals: 01/24/25 2257 01/25/25 0357 01/25/25 0454 01/25/25 0738 BP: 127/67 128/84 (!) 152/76 Pulse: 99 (!) 121 (!) 105 Resp: 24 24 Temp: 99 ??F (37.2 ??C) 100.6 ??F (38.1 ??C) 98.4 ??F (36.9 ??C) TempSrc: Axillary SpO2: 96% 94% 91% Weight: Height: Today's Weight: Last Recorded Weight 01/19/251914 Weight: 93.4 kg (206 lb) Physical Exam Constitutional: Appearance: He is ill-appearing. Cardiovascular: Rate and Rhythm: Regular rhythm. Tachycardia present. Pulses: Normal pulses. Heart sounds: Normal heart sounds. Pulmonary: Comments: Coarse and sonorous breath sounds bilaterally Musculoskeletal: Right lower leg: No edema. Left lower leg: No edema. Skin: General: Skin is warm and dry. Capillary Refill: Capillary refill takes less than 2 seconds. Neurological: Mental Status: He is alert. Comments: Lethargic but able to answer simple questions. LABORATORY RESULTS Recent Labs 01/23/25 0839 01/24/25 0705 01/25/25 0144 WBC 7.95 10.93* 9.31 HGB 13.9 14.4 13.7 HCT 40.8 42.5 41.5 MCV 85.9 86.2 88.9 PLT 217 201 198 RBC 4.75 4.93 4.67 Recent Labs 01/23/25 0839 01/24/25 0126 01/25/25 0144 CO2 25.4 26.9 27.5 CL 99 100 101 GLU 302* 323* 247* K 3.7 3.7 3.7 NA 134* 136 136 BUN 13 16 31* DIAGNOSIS Acute ischemic stroke Query: Embolic stroke of undetermined source (cryptogenic) Normal LVEF with no PFO on echo 01/21/2025 CTA head and neck on 01/20 showed no LVO and no significant carotid stenosis. Ground level fall Chronic C2 fracture History of HTN, HLD, T2DM, CAD status post CABG RECOMMENDATIONS/PLAN Reviewed ECGs and telemetry, no AF/AFL noted. Continue telemetry in the interim. Planning for 30-day MCT to rule out AF/AFL, and if in the event of no findings of AF/AFL, will thenrecommend loop recorder implantation for longer duration of surveillance. Maintain K >4.0 and Mg >2.0, replete as indicated. Rest of care as per Primary and Consulting Teams. Thank you for allowing Cardiac EP to participate in the care of this gentleman, we will follow along. Signed JOHN GREENBERG NP 01/25/2025 Cosigned by Shaheen Trujillo MD at 01/25/2025 4:00 PM CDT Associated attestation - Shaheen Trujillo MD - 01/25/2025 4:00 PM CDT Images from the original note were not included. I, SHAHEEN TRUJILLO MD, participated in the Consultation of this patient today and discussed the diagnostic tests, plan of care and treatment plan with LOBO De Leon, who shared in this visit. Iperformed a physical examination of the patient, reviewed the LOBO's documentation, and agree with the findings except as I have documented. I personally spent >35 minutes, caring for this patient. # Embolic Stroke of Undetermined Source (ESUS)- cryptogenic stroke CT head on 01/20 showed no hemorrhage. CTA head and neck on 01/20 showed no LVO. No significant carotid stenosis. MRI brain on 01/20 showed a small acute stroke to the left basal ganglia and left temporal lobe (left anterior choroidal territory). Echo on 01/21 showed EF 63%, left atrial volume normal, no PFO. EKGs and Telemetry negative. - 30-day MCOT on discharge and if negative, we recommend ILR implant for long- term cardiac monitoring to help investigate cardio-embolic etiology. We appreciate the opportunity to partake in the care of Олег Watson. Please do not hesitate to contact us with additional questions or concerns via Doc Halo or pager [phone]. Shaheen Trujillo MD. MS. Invasive Clinical Cardiac Electrophysiology Department of Cardiovascular Medicine Office: [phone] * Ludwig Coe MD - 01/24/2025 9:04 AM CDTSummary: Endocrinology [place] Endocrinology Consultation Note REASON FOR CONSULTATION: Uncontrolled Type 2 diabetes mellitus HISTORY OF PRESENT ILLNESS: Mr. Олег Watson was admitted on 328 following a ground-level fall and was found to have a chronic C2 fracture. On 01/20/2025 patient had a stat stroke episode and was found to have an acute infarction. Patient subsequently failed his swallow evaluation with speech and was started on tube feeds with Glucerna 1.2 Nicole via [place] fed with a goal rate of 65 mL/h. Patient's A1c on admission was 12.3%. Per outpatient note patient is afraid of hypoglycemia and therefore does not take his medication as directed. At appointment in October 2024 patient was only taking his Humalog over 400. Primary Senior Procurement Specialist: Tiffani Sen NP, [facility] [place] Home diabetes regimen: Metformin 1000 mg with breakfast and supper, glimepiride 2 mg with breakfast, pioglitazone 30 mg daily, Lantus 30 units every morning, Humalog 6 units before meals add 2:100 >200. REVIEW OF SYSTEMS: GENERAL: No fever, chills, weight loss/gain HEENT: Denies any double vision, blurred vision, or vision loss. ENDOCRINE: No polyuria and polydipsia. DERMATOLOGIC: No lipohypertrophy at insulin injection sites NEUROLOGIC: No paresthesias, weakness, or tremor GASTROINTESTINAL: No abdominal pain, nausea, vomiting, or diarrhea CARDIOVASCULAR: No palpitations, SOB, edema PULMONARY: Denies shortness of breath or paroxysmal nocturnal dyspnea. GENITOURINARY: Denies burning with urination or any recent urinary tract infections. LYMPHATICS: Denies any enlarged lymph nodes and no history of splenectomy. HEMATOLOGIC: Denies easy bruising or bleeding. MUSCULOSKELETAL: Denies any joint pain or muscle aches. Recent Labs Lab 01/22/25 2331 01/23/25 0616 01/23/25 1248 01/23/25 1751 01/24/25 0027 01/24/25 0425 01/24/25 1056 GLUCOSEPOC 237* 267* 287* 337* 452* 212* 328* PHYSICAL EXAM: GENERAL: No acute distress appears well. VITAL SIGNS: Vitals as documented. HEAD AND EARS: External inspection of the ears and nose without scars, lesions or masses. Oropharynx is pink, moist, and without lesion. EYES: PERRL. EOMI. No scleral icterus or injection. No exophthalmus lid lag. NECK: No thyromegaly, thyroid bruits, or carotid bruits. No cervical or supraclavicular lymphadenopathy. CARDIOVASCULAR: Normal S1 and S2 no murmurs are noted. Regular rate and rhythm. Dorsalis pedis pulses are palpable bilaterally. No lower extremity edema. PULMONARY: Lungs are clear to auscultation bilaterally with unlabored respiratory effort. ABDOMEN: Soft nontender, no organomegaly. EXTREMITIES: No clubbing or cyanosis. SKIN: No rashes or lesions no skin lesions of the feet. NEUROLOGIC: No focal neurological deficits gait without abnormalities. PSYCHIATRIC: Alert and oriented x3 with appropriate mood and affect. ASSESSMENT: Uncontrolled type 2 diabetes mellitus A1c 12.3 Noncompliance with outpatient medication regimen RECOMMENDATIONS: Increase Lantus to 16 units BID Continue with Humalog per sliding scale every 4 hours We will continue to adjust dosing based on patient's glycemic trends. Please notify [facility] Endocrinology for blood glucose value less than 70 or greater [id number]. [facility] Endocrinology [place] [employer] FLOOR ATTENDANT, DNP, VIOLIN TEACHER Attending: Dr. Ludwig Coe Contact via Halo January 24, 2025 Addendum: The patient's endocrine case and plan of care were reviewed in detail. I agree with the findings and plans as indicated by the advanced practice provider, Akiko Aranda DNP. * Alonso Vasquez Jr., MD - 01/23/2025 1:24 PM CDTSummary: PM&R Consult Note CC: CVA, chronic C2 fracture, impaired mobility HPI: History obtained from interview with patient and chart review. Discussed case with trauma team. Patient seen and examined on 01/23/25. Daughter present and bedside and provided additional history. Олег Watson is a 69 YO male now admitted to [facility] with weakness. Past medical historyis significant for MA, CAD s/p CABG, DM2 with prior DKA, HTN, and HLD. He suffered a fall from standing on 01/19/25 and was unable to get up off the floor due to right sided weakness. It is unclear ifweakness led to fall. He was brought to the hospital where workup found a type II odontoid C2 fracture. Orthopedics was consulted and believe the fracture is likely chronic. Ortho recommended cervical collar to be worn at all times and have outpatient f/u. Weakness reportedly had begun to improve. On 01/20/25 he developed increased blurry vision and right sided weakness. Head CT and CTA head/neck were negative for acute pathology. MRI of the brain showed small acute left-sided strokes in the left basal ganglia and adjacent temporal lobe as well as possible additional stroke in the inferomedialleft temporal lobe. MRI cervical spine showed the known C2 fracture without evidence of cord compression or new injury. Neurology recommend secondary prevention with ASA and statin. On evaluation this morning, the patient is awake, alert and oriented x3. He was able to follow one step instructions but had difficulty with multistep. He continues to have right sided weakness. He has chronically altered sensation in the bilateral feet which they attribute to neuropathy from diabetes. He is currently on tube feeds via Keofeed due to persistent dysphagia. He has been participating with therapies while in the hospital. At his baseline he was ambulating without assistive device but did fall twice in the last week. He normally independent with ADLs and IADLs. He lives alone but reportedly could live with his daughter and her significant other after discharge. The patient and his daughter are interested in further rehab at an intensive rehab facility. ROS: CONST: No fevers or chills. No acute distress. EYES: No vision changes. ENT: Difficulty with swallowing. RESP: No Shortness of breath at rest. No Cough. CV: No heart racing. GI: No Nausea. No Vomiting. No Diarrhea. : No Dysuria. MSK: No Edema in extremities. SKIN: No rashes or other skin lesions. PSYCH: No new changes in mood or affect. NEURO: Altered sensation in feet. Right sided weakness. HISTORIES: Past Medical History: Diagnosis Date Acute myocardial infarction ([facility]) Ankle fracture Closed; fracture left fibula Chest pain Closed fracture of distal end of fibula 05/18/2013 Date Onset: 05/18/2013 Coronary artery disease Diabetes ([facility]) Diabetes mellitus, type 2 ([facility]) Diabetic ketoacidosis without coma associated with diabetes mellitus due to underlying condition ([facility]) 03/19/2023 DKA (diabetic ketoacidosis) ([facility]) 03/19/2023 Essential hypertension 07/26/2018 Eustachian tube dysfunction 06/13/2015 Date Onset: 06/13/2015 HLD (hyperlipidemia) Hx of CABG Microalbuminuria Myocardial infarction ([facility]) 07/11/2018 Non-rheumatic mitral regurgitation Noncompliance with medication regimen 12/24/2021 Situational stress 06/13/2015 Past Surgical History: Procedure Laterality Date 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 Hutchins [facility], next scope 5 yr Family Hx: Family History Problem Relation Name Age of Onset Diabetes Brother Hypertension Son Diabetes Maternal Uncle Diabetes Sister concepcion Social Hx: Social History Socioeconomic History Marital status: Spouse name: Not on file Number of children: 2 Years of education: 14 Highest education level: Not on file Occupational History Occupation: [employer] Employer: [employer] Tobacco Use Smoking status: Former Current packs/day: 0.00 Types: Cigarettes Start date: 1968 Quit date: 1969 Years since quittin.2 Smokeless tobacco: Never Vaping Use Vaping status: Never Used Substance and Sexual Activity Alcohol use: Not Currently Comment: quit before 2021 Drug use: Not Currently Types: Marijuana Comment: occassional, not very often Sexual activity: Not Currently Partners: Female Comment: Other Topics Concern Service Not Asked Blood Transfusions Not Asked Caffeine Concern No Occupational Exposure Not Asked Hobby Hazards Not Asked Sleep Concern Not Asked Stress Concern Not Asked Weight Concern Not Asked Special Diet No Back Care Not Asked Exercise Yes Bike Helmet Not Asked Seat Belt Yes Self-Exams Not Asked Wheelchair Not Asked Walker Not Asked Upper extremity braces/slings Not Asked Lower extermity braces/slings Not Asked Self Care Not Asked Social History Narrative Not on file Social Drivers of Health Financial Resource Strain: Low Risk (01/21/2025) Overall Financial Resource Strain (CARDIA) Difficulty of Paying Living Expenses: Not hard at all Food Insecurity: No Food Insecurity (01/21/2025) Hunger Vital Sign Worried About Running Out of Food in the Last Year: Never true Ran Out of Food in the Last Year: Never true Transportation Needs: No Transportation Needs (01/21/2025) PRAPARE - Transportation Lack of Transportation (Medical): No Lack of Transportation (Non-Medical): No Physical Activity: Not on file Stress: Not on file Social Connections: Not on file Intimate Partner Violence: Not At Risk (01/21/2025) Humiliation, Afraid, Rape, and Kick questionnaire Fear of Current or Ex-Partner: No Emotionally Abused: No Physically Abused: No Sexually Abused: No Housing Stability: Low Risk (01/21/2025) Housing Stability Vital Sign Unable to Pay for Housing in the Last Year: No Number of Times Moved in the Last Year: 0 Homeless in the Last Year: No Medications: Current Facility-Administered Medications: acetaminophen (TYLENOL) tablet 650 mg, 650 mg, Tube, Q4H PRN OR acetaminophen (TYLENOL) suppository 650 mg, 650 mg, Rectal, Q4H PRN OR acetaminophen (TYLENOL) 160 MG/5ML solution 650 mg, 650 mg, Tube, Q4H PRN, Emiliano Donaldson MD aspirin chewable tablet 81 mg, 81 mg, Tube, Daily, Emiliano Donaldson MD, 81 mg at 01/23/25924 atorvastatin (LIPITOR) tablet 80 mg, 80 mg, Tube, Nightly at bedtime, Emiliano Donaldson MD, 80 mg at 01/22/252112 enoxaparin (LOVENOX) 30 mg/0.3 mL syringe 30 mg, 30 mg, Subcutaneous, Q12H, 30 mg at 01/23/25925 AND [COMPLETED] Moderate Risk for VTE, , , Once, LYNN Graner HYDROcodone-acetaminophen (NORCO) 5-325 MG tablet 1 tablet, 1 tablet, Tube, Q6H PRN, Emiliano Donaldson MD, 1 tablet at 01/22/25 2348 insulin glargine (LANTUS) injection 12 Units, 12 Units, Subcutaneous, Nightly at bedtime, DONNIE Cruz insulin lispro (HUMALOG/ADMELOG) injection 0-8 Units, 0-8 Units, Subcutaneous, 4x Daily AC and at bedtime, DONNIE Cruz, 5 Units at 01/23/25 1315 labetalol (TRANDATE) injection 20 mg, 20 mg, Intravenous, Q6H PRN, LYNN Garner, 20 mg at 01/23/25 1314 lansoprazole (PREVACID SOLUTAB) disintegrating tablet 30 mg, 30 mg, Tube, QAM AC, Emiliano Donaldsno MD, 30 mg at 01/23/25 0612 lidocaine 4 % patch 1 patch, 1 patch, Transdermal, Q24H, Phylicia Howard NP, 1 patch at 01/22/252113 lisinopril (PRINIVIL) tablet 5 mg, 5 mg, Tube, Daily, Emiliano Donaldson MD, 5 mg at 01/23/25925 metoprolol tartrate (LOPRESSOR) tablet 12.5 mg, 12.5 mg, Tube, BID, Emiliano Donaldson MD, 12.5 mg at 01/23/25924 multi vitamin/minerals (THERA-M ENHANCED) tablet 1 tablet, 1 tablet, Tube, Daily, DONNIE Cruz, 1 tablet at 01/23/25925 naLOXone (NARCAN) injection 0.4 mg, 0.4 mg, Intravenous, PRN, Phylicia Howard NP ondansetron (ZOFRAN) injection 4 mg, 4 mg, Intravenous, Q8H PRN, Phylicia Howard NP oxyCODONE immediate release (ROXICODONE) tablet 5 mg, 5 mg, Tube, Q6H PRN, Emiliano Donaldson MD, 5 mgat 01/22/25 194 phosphorus (K PHOS NEUTRAL) tablet 500 mg, 500 mg, Tube, Q4H, DONNIE Cruz, 500 mg at 01/23/25 1148 protein supplement (PROSOURCE) packet 1 packet, 1 packet, Feeding Tube, Daily, Sandra aRy DO, 1 packet at 01/23/25 09 senna-docusate (SENOKOT-S) 8.6-50 MG tablet 1 tablet, 1 tablet, Tube, BID, Emiliano Donaldson MD, 1 tablet at 01/23/25925 TF diabetic w/Fiber (GLUCERNA 1.2) liquid, 20-65 mL/hr, Feeding Tube, Continuous, Sandra Ray DO, Last Rate: 65 mL/hr at 01/22/25 1751, 65 mL/hr at 01/22/25 175 vitamin B-1 (THIAMINE) tablet 100 mg, 100 mg, Tube, Daily, Sandra Ray DO, 100 mg at 01/23/25925 IMAGING: Personally reviewed the results of the following studies 01/19/25: CTA head and neck, CT chest/abd/pelvis w con, XR cervical spine 01/20/25: CT head wo con, CTA head and neck, MRI brain wo con, MRI cervical spine wo con 01/21/25: echocardiogram VITALS: Vitals: 01/23/25 1249 BP: (!) 180/90 Pulse: 100 Resp: Temp: SpO2: 94% PHYSICAL EXAM: General: Well nourished, No acute distress Eye: PERRL, EOMI, Normal conjunctiva HENT: Normocephalic, Normal hearing, MMM, Keofeed in place Neck: Supple, C collar in place Lungs: Symmetric thoracic expansion, Non-labored breathing, CTAB, No wheezes or crackles appreciated Heart: Extremities warm and well-perfused, No edema in extremities, RRR, No m/r/g appreciated Abdomen: Soft, Nondistended, Nontender, +BS, No organomegaly Musculoskeletal: Normal passive ROM in bilateral upper and lower extremities; formal strength exam limited by patient's command following, strength grossly 5/5 in LUE and LLE, strength grossly 3-4/5 in RUE and RLE Skin: Skin is warm, dry and pink; No rashes on exposed skin Neurologic: -A&O x3 -Mildly dysarthric speech -Mild right facial droop -Facial sensation intact bilaterally -Altered sensation in bilateral feet to light touch, intact in BUE -Reflexes 2+ and symmetric biceps, brachioradialis, patella, Achilles -Babinski downgoing bilaterally -No clonus; No increase in tone Psychiatric: Cooperative, appropriate mood and affect ASSESSMENT AND PLAN: Олег Watson is a 69 YO male now admitted to [facility] with right sided weakness, acute ischemic CVA, and chronic C2 fracture. CVA - small acute left-sided strokes in the left basal ganglia and adjacent temporal lobe as well as possible additional stroke in the inferomedial left temporal lobe Right hemiplegia C2 vertebral fracture Impaired mobility Decreased independence with ALDs -Provided extensive counseling on stroke pathology, prognosis, and rehabilitation to patient and family -Reviewed available notes from therapy services, case management, neurology, and the hospitalist -Recommend PT and OT: working on strength, endurance, balance, and techniques to improve safety andindependence with ADLs and mobility -No spasticity or neuropathic pain at present, continue to monitor -C-collar at all times per ortho Dysphagia -Recommend DIRECTOR OF MEDICARE: work on cognition, speech and swallow -Currently NPO on TF via Keofeed -Planning for swallow study in coming days -Will need diet advanced or PEG placed prior to discharge, education provided to patient and family Management of remaining medical issues per primary/consulting services. Dispo -The patient has suffered a significant decline from their usual state of health and level of function and would benefit from an acute rehabilitation program with PT/OT/DIRECTOR OF MEDICARE 3h/d, at least 5d/wk to improve endurance, mobility, activities of daily living, cognition, and swallowing as appropriate. They will also require physiatric oversight to monitor medical conditions, skin/incisions, nutrition, and the rehab program. -Potential barriers to acute rehab: Currently NPO with TF via Keofeed (needs diet advanced or PEG placed), recommend confirmation of level of assistance able to be provided by patient's daughter and her fiance. -I personally discussed the recommendations for further rehabilitation based on their current levelof independence with ADLs and functional mobility. We reviewed the available options for rehabilitation after discharge. The patient is in agreement with discharge to acute inpatient rehab for further recovery. Patient/family's first choice is [facility] as it is closer to home. Open to [facility] 3[facility] ifunable to go to [place]. PM&R will continue to follow peripherally and will re-evaluate as appropriate. Please contact via Halo with any additional questions or concerns. I personally spent a total of at least 60 minutes on the patient on this date of service including both wyto-ls-umsb and non vmeg-si-welv time excluding any separately reportable services with more than 50% spent counseling/coordinating care. The patient???s acute medical and functional history has been reviewed after suffering an acute stroke. I recommend admission to an Inpatient Rehabilitation Facility (IRF) for further stroke rehabilitation. As specified in the Social Security Act Section 1862(a)(1)(A), Medicare considers IRF admission reasonable and necessary after an acute stroke when there is a reasonable expectation that the patient meets the following requirements: Required active/ongoing therapeutic intervention (PT, OT, ST) Tolerance/participation of therapies for 3 hours/days for at least 5 days/week Sufficient medical stability to actively participate in intensive rehabilitation Requirement for physician supervision by a rehabilitation physician at least 3 days/week Inpatient Rehabilitation is the standard of care after an acute stroke as referenced in the AHA/ASAStroke Guidelines which states It is recommended that the stroke survivors receive rehabilitation at an intensity commensurate with the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 fracture of distal end of fibula 05/18/2013 Date Onset: 05/18/2013 Coronary artery disease Diabetes ([facility]) Diabetes mellitus, type 2 ([facility]) Diabetic ketoacidosis without coma associated with diabetes mellitus due to underlying condition ([facility]) 03/19/2023 DKA (diabetic ketoacidosis) ([facility]) 03/19/2023 Essential hypertension 07/26/2018 Eustachian tube dysfunction 06/13/2015 Date Onset: 06/13/2015 HLD (hyperlipidemia) Hx of CABG Microalbuminuria Myocardial infarction ([facility]) 07/11/2018 Non-rheumatic mitral regurgitation Noncompliance with medication regimen 12/24/2021 Situational stress 06/13/2015 No current facility-administered medications for this encounter. Current Outpatient Medications Medication Sig Dispense Refill aspirin EC (ECOTRIN) 81 MG tablet Take 1 tablet (81 mg total) by mouth daily. 90 tablet 3 atorvastatin (LIPITOR) 40 MG tablet Take 1 tablet (40 mg total) by mouth every other day. 45 tablet1 glimepiride (AMARYL) 2 MG tablet Take 1 tablet (2 mg total) by mouth every morning before breakfast. Glucose Blood (HypecalUCH ULTRA) test strip Use as instructed -- Test blood sugar BID and PRN DX: E11.65 200 strip 3 insulin lispro, 1 Unit Dial, (HUMALOG) 100 UNIT/ML injection (PEN) Inject 8-14 Units into the skin 2 (two) times daily. Insulin Pen Needle (PEN NEEDLES) 31G X 8 MM Misc 1 each by Does not apply route daily. 100 each 3 lisinopril (PRINIVIL) 5 MG tablet Take 1 tablet (5 mg total) by mouth daily. 90 tablet 1 metFORMIN (GLUCOPHAGE) 1000 MG tablet BID 180 tablet 3 metoprolol succinate ER (TOPROL-XL) 25 MG 24 hr tablet Take 1 tablet (25 mg total) by mouth daily. 90 tablet 1 pantoprazole EC (PROTONIX) 40 MG tablet take 1 tablet by mouth every day 90 tablet 1 pioglitazone (ACTOS) 30 MG tablet Take 1 tablet (30 mg total) by mouth daily. silver sulfADIAZINE (SILVADENE) 1 % cream Apply topically 2 (two) times daily. 25 g 3 * Pio Brown MD - 01/19/2025 7:16 PM CDT Emergency Department Note Chief Complaint Chief Complaint Patient presents with Trauma History of Present Illness Patient presents as a transfer from [place] after being found on the floor this morning. He states he went to bed last evening around 7PM and woke up around 9PM and fell, unsure why he fell, and lay on the floor until this morning when he was found around 11AM. [facility] showed a chronically depressed right parietal skull fracture without acute skull fracture or ICH. CT neck showed a dens fracture with mild displacement of unclear chronicity and patient was transferred here for trauma evaluation for this. Patient was noted to have slurred speech but is edentulous and unknown baseline. He otherwise has no complaints. Medical History ALLERGIES: Review of patient's allergies indicates: No Known Allergies MEDICATIONS: Prior to Admission medications Medication Sig Start Date End Date Taking? Authorizing Provider aspirin EC (ECOTRIN) 81 MG tablet Take 1 tablet (81 mg total) by mouth daily. 06/01/24 DONNIE Timmons atorvastatin (LIPITOR) 40 MG tablet Take 1 tablet (40 mg total) by mouth every other day. 11/01/24 DONNIE Timmons glimepiride (AMARYL) 2 MG tablet Take 1 tablet (2 mg total) by mouth every morning before breakfast. 03/07/24 Default History Genericprovider Glucose Blood (HypecalUCH ULTRA) test strip Use as instructed -- Test blood sugar BID and PRN DX: E11.65 08/26/23 DONNIE Timmons insulin lispro, 1 Unit Dial, (HUMALOG) 100 UNIT/ML injection (PEN) Inject 8-14 Units into the skin 2 (two) times daily. 01/19/24 Default History Genericprovider Insulin Pen Needle (PEN NEEDLES) 31G X 8 MM Misc 1 each by Does not apply route daily. 03/31/23 Nemesio Larkin MD lisinopril (PRINIVIL) 5 MG tablet Take 1 tablet (5 mg total) by mouth daily. 11/01/24 DONNIE Timmons metFORMIN (GLUCOPHAGE) 1000 MG tablet BID 09/13/23 Nemesio Larkin MD metoprolol succinate ER (TOPROL-XL) 25 MG 24 hr tablet Take 1 tablet (25 mg total) by mouth daily. 11/01/24 DONNIE Timmons pantoprazole EC (PROTONIX) 40 MG tablet take 1 tablet by mouth every day 06/06/24 DONNIE Timmons pioglitazone (ACTOS) 30 MG tablet Take 1 tablet (30 mg total) by mouth daily. 02/07/24 Default History Genericprovider silver sulfADIAZINE (SILVADENE) 1 % cream Apply topically 2 (two) times daily. 12/14/24 Devan Henderson DPM PAST MEDICAL HISTORY: Past Medical History: Diagnosis Date Acute myocardial infarction ([facility]) Ankle fracture Closed; fracture left fibula Chest pain Closed fracture of distal end of fibula 05/18/2013 Date Onset: 05/18/2013 Coronary artery disease Diabetes ([facility]) Diabetes mellitus, type 2 ([facility]) Diabetic ketoacidosis without coma associated with diabetes mellitus due to underlying condition ([facility]) 03/19/2023 DKA (diabetic ketoacidosis) ([facility]) 03/19/2023 Essential hypertension 07/26/2018 Eustachian tube dysfunction 06/13/2015 Date Onset: 06/13/2015 HLD (hyperlipidemia) Hx of CABG Microalbuminuria Myocardial infarction ([facility]) 07/11/2018 Non-rheumatic mitral regurgitation Noncompliance with medication regimen 12/24/2021 Situational stress 06/13/2015 PAST SURGICAL HISTORY: Past Surgical History: Procedure Laterality Date 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 Hutchins [facility], next scope 5 yr FAMILY HISTORY: Family History Problem Relation Name Age of Onset Diabetes Brother Hypertension Son Diabetes Maternal Uncle Diabetes Sister concepcion SOCIAL HISTORY: Social History Tobacco Use Smoking status: Former Current packs/day: 0.00 Types: Cigarettes Start date: 1968 Quit date: 1969 Years since quittin.2 Smokeless tobacco: Never Vaping Use Vaping status: Never Used Substance Use Topics Alcohol use: Not Currently Comment: quit before 2021 Drug use: Not Currently Types: Marijuana Comment: occassional, not very often Review of Systems Review of Systems Gastrointestinal: Positive for abdominal pain. Musculoskeletal: Negative for neck pain. Neurological: Negative for weakness, numbness and headaches. Physical Exam Filed Vitals: 01/19/25191301/19/251914 BP: (!) 143/92 (!) 143/92 Pulse: 86 88 Resp: 15 17 Temp: 98.6 ??F (37 ??C) 98.2 ??F (36.8 ??C) TempSrc: Oral Oral SpO2: 95% 97% Weight: 93.4 kg (206 lb) 93.4 kg (206 lb) Height: 1.803 m (5' 11 ) 1.803 m (5' 11 ) Physical Exam Vitals and nursing note reviewed. HENT: Head: Normocephalic. Comments: There is a depression of the right posterior-lateral skull without crepitance, swelling, or ecchymosis Neck: Comments: C-collar in place Cardiovascular: Rate and Rhythm: Normal rate and regular rhythm. Pulmonary: Effort: Pulmonary effort is normal. Chest: Chest wall: No tenderness. Abdominal: Tenderness: There is abdominal tenderness (mild epigastric tenderness). Musculoskeletal: Right lower leg: No edema. Left lower leg: No edema. Neurological: Mental Status: He is alert and oriented to person, place, and time. Sensory: No sensory deficit. Comments: Mild weakness of the right arm compared to the left. Sensation grossly intact. Diagnostic Studies / Procedures RHYTHM STRIP INTERPRETATION: Rhythm: Normal sinus, No arrhythmia, Pulse: 86 PULSE OX INTERPRETATION: SpO2: 95 %, Oxygen delivery: Room air, Interpretation: No hypoxia at this time EKG: No results found for this visit on 01/19/25. LABORATORY STUDIES: No results found for this visit on 01/19/25. IMAGING STUDIES No orders to display ED Course / Medical Decision Making History Source: Patient External records reviewed: Previous ER visits from [place] earlier today including labs and CT scan showing C2 fracture Discussion with external provider: Admitting provider: Dr. German, trauma surgery Social determinates of health: None Chronic illnesses impacting care: None Tests considered and not ordered: None MDM Number of Diagnoses or Management Options C2 cervical fracture ([facility]): new and requires workup Fall: new and requires workup Diagnosis management comments: Ddx: Fracture, spinal injury, CVA Patient transferred after imaging at outside ER after a fall showed a C2 dens fracture of unclear chronicity, suspected to be chronic. Dr. German was at bedside on arrival to evaluate patient and will admit and manage ongoing workup. Patient is in no distress. Amount and/or Complexity of Data Reviewed Clinical lab tests: reviewed Tests in the radiology section of CPT??: reviewed Risk of Complications, Morbidity, and/or Mortality Presenting problems: moderate Diagnostic procedures: moderate Management options: moderate Patient Progress Patient progress: stable Medications - No data to display SNOMED CT(R) 1. C2 cervical fracture (CMS/HCC [facility]) FRACTURE OF SECOND CERVICAL VERTEBRA 2. Fall FALL Current Discharge Medication List Disposition: Admit Follow-Up: No follow-up provider specified. Pio Brown MD 01/19/2025 7:22 PM Pio Brown MD 01/19/25 192 * Rosio Bautista RN-LP - 01/19/2025 7:12 PM CDT Pt arrives via [facility] [place] trauma [place]. Pt is aox4 Pt fall and laid on the ground for hours. * Imelda Mcmahon RN - 01/19/2025 7:05 PM CDT Bed: C Expected date: 01/19/25 Expected time: Means of arrival: Ambulance - [place] Comments: [id number] transfer. 68m * Imelda Mcmahon RN - 01/19/2025 5:09 PM CDTSummary: trauma transfer Transferring Hospital art objects salesperson: Osbaldo SALGUERO Transferring Facility: [facility] Transferring MD: Dr. Kang Receiving Trauma Surgeon: El Time Accepted/Declared: 01/19/2025 1454 Accepting Ed Physician: MARU Arrival Date/Time: 01/19/2025 1503 Time/Date of Injury: 01/18/2025 unk time Mechanism of Injury: fall last noc. From standing. Injuries Reported: Dens fx. Abrasion to face/leg Vital Signs: 156/103 93 pulse 96% RA 97.1 Images obtained: Ct Head, Cspine IV: 18ga LAC Medications given: none GCS: pt is caox2 per reports Pupils: NR Labs: to send. Important information: pt fell last noc at an unknown time. Per reports pt reports his leg gave out. Pt also having weakness to his rt leg and arm. ETA: pending transport. Category: 3 Family: son at bedside. Instructions given per [facility]: none documented in this encounter Plan of Treatment Upcoming Encounters Date Type Department Care Team (Late st Contact Info) Description 02/08/2025 9:00 AM CDT Office Visit [facility] - [address], [address] [place] [phone] Devan Henderson, DPM [address] [place], [place] [id number] 04/03/2025 10:20 AM CDT Office Visit [address] [place] [address] Nicole Garcia, [address] [place] [address] 05/11/2025 10:00 AM CDT Office Visit [facility] [address] [place] [id number] Shaheen Trujillo MD [address] [facility] [address] [address] documented as of this encounter Procedures Procedure Name Priority Date/Time Associated Diagnosis Comments POCT GLUCOSE - [place]MOND DOCKED DEVICE Routine 02/02/2025 11:10 AM CDT XR SPEECH SWALLOW SJS ONLY Routine 02/02/2025 9:26 AM CDT POCT GLUCOSE - [place]MOND DOCKED DEVICE Routine 02/02/2025 6:19 AM CDT POCT GLUCOSE - [place]MOND DOCKED DEVICE Routine 02/01/2025 7:51 PM CDT POCT GLUCOSE - [place]MOND DOCKED DEVICE Routine 02/01/2025 3:58 PM CDT POCT GLUCOSE - REDMOND DOCKED DEVICE Routine 02/01/2025 11:51 AM CDT POCT GLUCOSE - REDMOND DOCKED DEVICE Routine 02/01/2025 9:03 AM CDT POCT GLUCOSE - REDMOND DOCKED DEVICE Routine 02/01/2025 6:13 AM CDT POCT GLUCOSE - REDMOND DOCKED DEVICE Routine 02/01/2025 1:51 AM CDT POCT GLUCOSE - REDMOND DOCKED DEVICE Routine 01/31/2025 10:15 PM CDT POCT GLUCOSE - REDMOND DOCKED DEVICE Routine 01/31/2025 4:20 PM CDT POCT GLUCOSE - REDMOND DOCKED DEVICE Routine 01/31/2025 3:44 PM CDT POCT GLUCOSE - REDMOND DOCKED DEVICE Routine 01/31/2025 11:46 AM CDT POCT GLUCOSE - REDMOND DOCKED DEVICE Routine 01/31/2025 7:49 AM CDT POCT GLUCOSE - REDMOND DOCKED DEVICE Routine 01/31/2025 5:51 AM CDT POCT GLUCOSE - REDMOND DOCKED DEVICE Routine 01/31/2025 3:17 AM CDT POCT GLUCOSE - REDMOND DOCKED DEVICE Routine 01/31/2025 12:30 AM CDT POCT GLUCOSE - REDMOND DOCKED DEVICE Routine 01/30/2025 8:17 PM CDT POCT GLUCOSE - REDMOND DOCKED DEVICE Routine 01/30/2025 4:01 PM CDT POCT GLUCOSE - REDMOND DOCKED DEVICE Routine 01/30/2025 3:40 PM CDT HEMOGLOBIN AND HEMATOCRIT STAT 01/30/2025 1:19 PM CDT POCT GLUCOSE - REDMOND DOCKED DEVICE Routine 01/30/2025 12:21 PM CDT POCT GLUCOSE - REDMOND DOCKED DEVICE Routine 01/30/2025 9:57 AM CDT POCT GLUCOSE - REDMOND DOCKED DEVICE Routine 01/30/2025 4:20 AM CDT BMP WITHOUT GLUCOSE Routine 01/30/2025 3 :10 AM CDT POCT GLUCOSE - REDMOND DOCKED DEVICE Routine 01/30/2025 12:27 AM CDT POCT GLUCOSE - REDMOND DOCKED DEVICE Routine 01/29/2025 8:15 PM CDT POCT GLUCOSE - REDMOND DOCKED DEVICE Routine 01/29/2025 6:49 PM CDT POCT GLUCOSE - REDMOND DOCKED DEVICE Routine 01/29/2025 11:42 AM CDT IR PERC HUI CATH PLCMNT Today 01/29/2025 9:17 AM CDT POCT GLUCOSE - REDMOND DOCKED DEVICE Routine 01/29/2025 8:09 AM CDT PROTHROMBIN TIME, VENOUS Routine 01/29/2025 7:04 AM CDT BASIC METABOLIC PANEL Routine 01/29/2025 7:04 AM CDT CBC W/DIFF AUTOMATED TIMED 01/29/2025 7:04 AM CDT PHOSPHORUS, INORGANIC PHOSPHATE Routine 01/29/2025 7:04 AM CDT MAGNESIUM Routine 01/29/2025 7:04 AM CDT POCT GLUCOSE - REDMOND DOCKED DEVICE Routine 01/29/2025 5:19 AM CDT POCT GLUCOSE - REDMOND DOCKED DEVICE Routine 01/29/2025 12:48 AM CDT POCT GLUCOSE - REDMOND DOCKED DEVICE Routine 01/29/2025 12:02 AM CDT POCT GLUCOSE - REDMOND DOCKED DEVICE Routine 01/28/2025 11:21 PM CDT POCT GLUCOSE - REDMOND DOCKED DEVICE Routine 01/28/2025 11:11 PM CDT POCT GLUCOSE - REDMOND DOCKED DEVICE Routine 01/28/2025 8:44 PM CDT POCT GLUCOSE - REDMOND DOCKED DEVICE Routine 01/28/2025 3:39 PM CDT XR NG/FEED TUBE PLCMT FLUORO Today 01/28/2025 2:50 PM CDT POCT GLUCOSE - REDMOND DOCKED DEVICE Routine 01/28/2025 12:49 PM CDT POCT GLUCOSE - REDMOND DOCKED DEVICE Routine 01/28/2025 4:46 AM CDT POCT GLUCOSE - REDMOND DOCKED DEVICE Routine 01/27/2025 11:20 PM CDT POCT GLUCOSE - REDMOND DOCKED DEVICE Routine 01/27/2025 8:35 PM CDT POCT GLUCOSE - REDMOND DOCKED DEVICE Routine 01/27/2025 3:48 PM CDT POCT GLUCOSE - REDMOND DOCKED DEVICE Routine 01/27/2025 11:28 AM CDT POCT GLUCOSE - REDMOND DOCKED DEVICE Routine 01/27/2025 8:31 AM CDT POCT GLUCOSE - REDMOND DOCKED DEVICE Routine 01/27/2025 3:54 AM CDT BASIC METABOLIC PANEL Routine 01/27/2025 2:10 AM CDT CBC W/DIFF AUTOMATED Routine 01/27/2025 2:10 AM CDT PHOSPHORUS, INORGANIC PHOSPHATE Routine 01/27/2025 2:10 AM CDT MAGNESIUM Routine 01/27/2025 2:10 AM CDT POCT GLUCOSE - REDMOND DOCKED DEVICE Routine 01/27/2025 12:32 AM CDT POCT GLUCOSE - REDMOND DOCKED DEVICE Routine 01/26/2025 11:28 PM CDT POCT GLUCOSE - REDMOND DOCKED DEVICE Routine 01/26/2025 9:46 PM CDT POCT GLUCOSE - REDMOND DOCKED DEVICE Routine 01/26/2025 8:14 PM CDT POCT GLUCOSE - REDMOND DOCKED DEVICE Routine 01/26/2025 5:49 PM CDT XR ABD UPRIGHT Today 01/26/2025 3:55 PM CDT POCT GLUCOSE - REDMOND DOCKED DEVICE Routine 01/26/2025 3:37 PM CDT ECG 12-LEAD Routine 01/26/2025 1:50 PM CDT POCT GLUCOSE - REDMOND DOCKED DEVICE Routine 01/26/2025 11:26 AM CDT POCT GLUCOSE - REDMOND DOCKED DEVICE Routine 01/26/2025 9:14 AM CDT POCT GLUCOSE - REDMOND DOCKED DEVICE Routine 01/26/2025 5:15 AM CDT POCT GLUCOSE - REDMOND DOCKED DEVICE Routine 01/26/2025 3:43 AM CDT COMPREHENSIVE METABOLIC PANEL Routine 01/26/2025 1:56 AM CDT CBC W/DIFF AUTOMATED Routine 01/26/2025 1:56 AM CDT PHOSPHORUS, INORGANIC PHOSPHATE Routine 01/26/2025 1:56 AM CDT MAGNESIUM Routine 01/26/2025 1:56 AM CDT POCT GLUCOSE - REDMOND DOCKED DEVICE Routine 01/26/2025 12:33 AM CDT POCT GLUCOSE - REDMOND DOCKED DEVICE Routine 01/25/2025 9:38 PM CDT POCT GLUCOSE - REDMOND DOCKED DEVICE Routine 01/25/2025 6:32 PM CDT POCT GLUCOSE - REDMOND DOCKED DEVICE Routine 01/25/2025 4:22 PM CDT POCT GLUCOSE - REDMOND DOCKED DEVICE Routine 01/25/2025 1:08 PM CDT XR NG/FEED TUBE PLCMT FLUORO Today 01/25/2025 11:45 AM CDT XR CHEST PORTABLE STAT 01/25/2025 9:5 3 AM CDT POCT GLUCOSE - REDMOND DOCKED DEVICE Routine 01/25/2025 9:34 AM CDT POCT GLUCOSE - REDMOND DOCKED DEVICE Routine 01/25/2025 4:03 AM CDT BASIC METABOLIC PANEL Routine 01/25/2025 1:44 AM CDT CBC W/DIFF AUTOMATED Routine 01/25/2025 1:44 AM CDT PHOSPHORUS, INORGANIC PHOSPHATE Routine 01/25/2025 1:44 AM CDT MAGNESIUM Routine 01/25/2025 1:44 AM CDT POCT GLUCOSE - REDMOND DOCKED DEVICE Routine 01/25/2025 12:42 AM CDT POCT GLUCOSE - REDMOND DOCKED DEVICE Routine 01/24/2025 11:46 PM CDT XR CHEST PORTABLE STAT 01/24/2025 8:3 0 PM CDT POCT GLUCOSE - REDMOND DOCKED DEVICE Routine 01/24/2025 8:05 PM CDT POCT GLUCOSE - REDMOND DOCKED DEVICE Routine 01/24/2025 4:[address] HEAD WO CON STAT 01/24/2025 2:57 PM CDT POCT GLUCOSE - REDMOND DOCKED DEVICE Routine 01/24/2025 1:50 PM CDT POCT GLUCOSE - REDMOND DOCKED DEVICE Routine 01/24/2025 10:56 AM CDT POCT GLUCOSE - REDMOND DOCKED DEVICE Routine 01/24/2025 9:45 AM CDT CBC W/DIFF AUTOMATED TIMED 01/24/2025 7:05 AM CDT PHOSPHORUS, INORGANIC PHOSPHATE TIMED 01/24/2025 7:05 AM CDT MAGNESIUM TIMED 01/24/2025 7:05 AM CDT POCT GLUCOSE - REDMOND DOCKED DEVICE Routine 01/24/2025 4:25 AM CDT BASIC METABOLIC PANEL STAT 01/24/2025 1:26 AM CDT POCT GLUCOSE - REDMOND DOCKED DEVICE Routine 01/24/2025 12:27 AM CDT POCT GLUCOSE - REDMOND DOCKED DEVICE Routine 01/23/2025 5:51 PM CDT POCT GLUCOSE - REDMOND DOCKED DEVICE Routine 01/23/2025 12:48 PM CDT BASIC METABOLIC PANEL TIMED 01/23/2025 8:39 AM CDT CBC W/DIFF AUTOMATED TIMED 01/23/2025 8:39 AM CDT PHOSPHORUS, INORGANIC PHOSPHATE TIMED 01/23/2025 8:39 AM CDT MAGNESIUM TIMED 01/23/2025 8:39 AM CDT POCT GLUCOSE - REDMOND DOCKED DEVICE Routine 01/23/2025 6:16 AM CDT POCT GLUCOSE - REDMOND DOCKED DEVICE Routine 01/22/2025 11:31 PM CDT POCT GLUCOSE - REDMOND DOCKED DEVICE Routine 01/22/2025 9:22 PM CDT POCT GLUCOSE - REDMOND DOCKED DEVICE Routine 01/22/2025 4:29 PM CDT POCT GLUCOSE - REDMOND DOCKED DEVICE Routine 01/22/2025 10:54 AM CDT POCT GLUCOSE - REDMOND DOCKED DEVICE Routine 01/22/2025 6:14 AM CDT BASIC METABOLIC PANEL TIMED 01/22/2025 6:11 AM CDT CBC W/DIFF AUTOMATED TIMED 01/22/2025 6:11 AM CDT PHOSPHORUS, INORGANIC PHOSPHATE TIMED 01/22/2025 6:11 AM CDT MAGNESIUM TIMED 01/22/2025 6:11 AM CDT POCT GLUCOSE - REDMOND DOCKED DEVICE Routine 01/21/2025 6:14 PM CDT XR FEEDING TUBE PLCMENT Today 01/22/20 2:55 PM CDT POCT GLUCOSE - REDMOND DOCKED DEVICE Routine 01/21/2025 1:49 PM CDT USE ECHOCARDIOGRAM STAT 01/21/2025 12 :22 PM CDT POCT GLUCOSE - REDMOND DOCKED DEVICE Routine 01/21/2025 5:44 AM CDT BASIC METABOLIC PANEL Routine 01/21/2025 3:40 AM CDT LIPID PANEL Routine 01/21/2025 3:40 AM CDT CBC W/DIFF AUTOMATED Routine 01/21/2025 3:40 AM CDT PHOSPHORUS, INORGANIC PHOSPHATE Routine 01/21/2025 3:40 AM CDT MAGNESIUM Routine 01/21/2025 3:40 AM CDT POCT GLUCOSE - REDMOND DOCKED DEVICE Routine 01/20/2025 8:30 PM CDT POCT GLUCOSE - REDMOND DOCKED DEVICE Routine 01/20/2025 5:34 PM CDT MRI CERV SPINE WO CON Today 01/20/2025 5:10 PM CDT MRI BRAIN WO CON Today 01/20/2025 4:58 PM CDT POCT GLUCOSE - REDMOND DOCKED DEVICE Routine 01/20/2025 12:40 PM CDT CTA HEAD+NECK STAT 01/20/2025 11:[address] HEAD WO CON STAT 01/20/2025 11:35 AM CDT ECG 12-LEAD STAT 01/20/2025 11:26 AM CDT PARTIAL THROMBOPLASTIN TIME,PTT STAT 01/20/2025 11:24 AM CDT PROTHROMBIN TIME, VENOUS STAT 01/20/2025 11:24 AM CDT COMPREHENSIVE METABOLIC PANEL STAT 01/20/2025 11:24 AM CDT FIBRINOGEN STAT 01/20/2025 11:24 AM CDT D-DIMER, QUANTITATIVE STAT 01/20/2025 11:24 AM CDT CBC W/DIFF AUTOMATED STAT 01/20/2025 11:24 AM CDT TROPONIN, QUANT STAT 01/20/2025 11:24 AM CDT CKMB(MB FRACTION ONLY) Routine 11:22 AM CDT CK (CPK) Routine 01/20/2025 11:22 AM CDT POCT GLUCOSE - REDMOND DOCKED DEVICE Routine 01/20/2025 11:13 AM CDT POCT GLUCOSE - REDMOND DOCKED DEVICE Routine 01/20/2025 6:17 AM CDT POCT GLUCOSE - REDMOND DOCKED DEVICE Routine 01/20/2025 5:56 AM CDT BASIC METABOLIC PANEL Routine 01/20/2025 2:35 AM CDT CBC W/DIFF AUTOMATED Routine 01/20/2025 2:35 AM CDT PHOSPHORUS, INORGANIC PHOSPHATE Routine 01/20/2025 2:35 AM CDT MAGNESIUM Routine 01/20/2025 2:35 AM CDT POCT GLUCOSE - REDMOND DOCKED DEVICE Routine 01/20/2025 12:47 AM CDT XR CERV SPINE LAT 1V Today 01/19/2025 10:10 PM CDT HEMOGLOBIN, GLYCOSYLATED STAT 01/19/2025 8:58 PM CDT POCT GLUCOSE - REDMOND DOCKED DEVICE Routine 01/19/2025 8:52 PM CDT CTA NECK STAT 01/19/2025 8:[address] CHEST+ABD+PEL W CON STAT 8:21 PM CDT POCT GLUCOSE - REDMOND DOCKED DEVICE Routine 01/19/2025 7:17 PM CDT documented in this encounter Results * (ABNORMAL) POCT glucose (02/02/2025 11:10 AM CDT) GLUCOSE POC 177(H) 70 - 109 02/02/2025 11:31 AM CDT [facility] 02/02/2025 11:1 0 AM CDT us Ludwig Saucedo MD POCT ORDERABLES - DEVICE Final R esult [facility] [address] [place] [address], [id number] * XR SPEECH SWALLOW SJS ONLY (02/02/2025 9:26 AM CDT) Anatomical Region Laterality Modality NA Fluoroscopy 02/02/2025 4:34 PM CDT Impressions 02/02/2025 4:36 PM CDT IMPRESSION: 1. See dedicated speech pathologist report report for results and recommendations. 2. Swallow as above Ordered By: LUDWIG SAUCEDO Interpreted By: Alfie Davey MD, 02/02/2025 4:34 PM Narrative 02/02/2025 4:[address] PM [address] [address] Examination: XR SPEECH SWALLOW SJS ONLY Exam time: 02/02/2025 9:06 AM Clinical history: Dysphasia. Comparison: No comparison. Technique: Standard fluoroscopic swallow study was performed with the patient swallowing various consistencies of barium given by the speech pathologist. Total fluoroscopy time: 1.2 minutes Total reference air kerma (Ka,r): 3.1 mGy Findings: Episode of penetration with ejection noted with honey barium via a spoon. Pudding barium via a spoon demonstrated spillage to the vallecula with moderate residuals. Honey barium via a cup demonstrated penetration without aspiration. Cecil-Bishop barium via a spoon demonstrated penetration to the cords. No олег aspiration identified. Procedure Note Alfie Davey MD - 02/02/[address] [address] Examination: XR SPEECH SWALLOW SJS ONLY Exam time: 02/02/2025 9:06 AM Clinical history: Dysphasia. Comparison: No comparison. Technique: Standard fluoroscopic swallow study was performed with thepatient swallowing various consistencies of barium given by the speechpathologist. Total fluoroscopy time: 1.2 minutes Total reference air kerma (Ka,r): 3.1 mGy Findings: Episode of penetration with ejection noted with honey barium via a spoon.Pudding barium via a spoon demonstrated spillage to the vallecula withmoderate residuals. Honey barium via a cup demonstrated penetrationwithout aspiration. Cecil-Bishop barium via a spoon demonstrated penetration tothe cords. No олег aspiration identified. IMPRESSION: 1. See dedicated speech pathologist report report for results andrecommendations. 2. Swallow as above Ordered By: LUDWIG SAUCEDO Interpreted By: Alfie Davey MD, 02/02/2025 4:34 PM us Ludwig Saucedo MD FLUOROSCOPY Final Result * (ABNORMAL) POCT glucose (02/02/2025 6:19 AM CDT) GLUCOSE POC 143(H) 70 - 109 02/02/2025 6:21 AM CDT [facility] 02/02/2025 6:19 AM CDT us Ludwig Saucedo MD POCT ORDERABLES - DEVICE Final R esult Performing Organization Address [facility] Co de Phone Number [facility] [address] [place] [address], [phone] * (ABNORMAL) POCT glucose (02/01/2025 7:51 PM CDT) GLUCOSE POC 156(H) 70 - 109 02/01/2025 7:54 PM CDT [facility] 02/01/2025 7:51 PM CDT us Ludwig Saucedo MD POCT ORDERABLES - DEVICE Final R esult Performing Organization Address [facility] de Phone Number [facility] [address] [place] [address], [place] [phone] * (ABNORMAL) POCT glucose (02/01/2025 3:58 PM CDT) GLUCOSE POC 150(H) 70 - 109 02/01/2025 4:36 PM CDT [facility] 02/01/2025 3:58 PM CDT us Ludwig Saucedo MD POCT ORDERABLES - DEVICE Final R esult Performing Organization Address [facility] Co de Phone Number [facility] [address] [place] [address], [id number] * (ABNORMAL) POCT glucose (02/01/2025 11:51 AM CDT) GLUCOSE POC 141(H) 70 - 109 02/01/2025 11:56 AM CDT [facility] 02/01/2025 11:5 1 AM CDT us Ludwig Saucedo MD POCT ORDERABLES - DEVICE Final R esult Performing Organization Address [facility] de Phone Number [facility] [address] [place] [address], [phone] * (ABNORMAL) POCT glucose (02/01/2025 9:03 AM CDT) GLUCOSE POC 113(H) 70 - 109 02/01/2025 9:27 AM CDT [facility] 02/01/2025 9:03 AM CDT us uLdwig Saucedo MD POCT ORDERABLES - DEVICE Final R esult Performing Organization Address [facility] de Phone Number [facility] [address] [place] [address], [id number] * POCT glucose (02/01/2025 6:13 AM CDT) GLUCOSE POC 92 70 - 109 02/01/2025 6:38 AM CDT [facility] 02/01/2025 6:13 AM CDT us Ludwig Saucedo MD POCT ORDERABLES - DEVICE Final R esult Performing Organization Address [facility] Co de Phone Number [facility] [address] [place] [address], [place] [phone] * (ABNORMAL) POCT glucose (02/01/2025 1:51 AM CDT) GLUCOSE POC 110(H) 70 - 109 02/01/2025 1:52 AM CDT [facility] Comment:MD Notified 02/01/2025 1:51 AM CDT us Ludwig Saucedo MD POCT ORDERABLES - DEVICE Final R esult Performing Organization Address [facility] Co de Phone Number [facility] [address] [place] [address], [place] [phone] * (ABNORMAL) POCT glucose (01/31/2025 10:15 PM CDT) GLUCOSE POC 115(H) 70 - 109 01/31/2025 10:16 PM CDT [facility] 01/31/2025 10:1 5 PM CDT us Ludwig Saucedo MD POCT ORDERABLES - DEVICE Final R esult Performing Organization Address [facility] Co de Phone Number [facility] [address] [place] [address], [place] [phone] * (ABNORMAL) POCT glucose (01/31/2025 4:20 PM CDT) GLUCOSE POC 189(H) 70 - 109 01/31/2025 4:29 PM CDT [facility] 01/31/2025 4:20 PM CDT us Ludwig Saucedo MD POCT ORDERABLES - DEVICE Final R esult Performing Organization Address [facility] Co de Phone Number [facility] [address] [place] [address], [place] [phone] * (ABNORMAL) POCT glucose (01/31/2025 3:44 PM CDT) GLUCOSE POC 187(H) 70 - 109 01/31/2025 4:35 PM CDT [facility] 01/31/2025 3:44 PM CDT us Ludwig Saucedo MD POCT ORDERABLES - DEVICE Final R esult Performing Organization Address [facility]/ZIP Co de Phone Number [facility] [address] [place] [address], [place] [phone] * (ABNORMAL) POCT glucose (01/31/2025 11:46 AM CDT) GLUCOSE POC 192(H) 70 - 109 01/31/2025 12:27 PM CDT [facility] 01/31/2025 11:4 6 AM CDT us Ludwig Saucedo MD POCT ORDERABLES - DEVICE Final R esult Performing Organization Address [facility] Co de Phone Number [facility] [address] [place] [address], [place] [phone] * (ABNORMAL) POCT glucose (01/31/2025 7:49 AM CDT) GLUCOSE POC 170(H) 70 - 109 01/31/2025 8:47 AM CDT [facility] 01/31/2025 7:49 AM CDT us Ludwig Saucedo MD POCT ORDERABLES - DEVICE Final R esult Performing Organization Address [facility] Co de Phone Number [facility] [address] [place] [address], [place] [phone] * (ABNORMAL) POCT glucose (01/31/2025 5:51 AM CDT) GLUCOSE POC 167(H) 70 - 109 01/31/2025 6:15 AM CDT [facility] 01/31/2025 5:51 AM CDT us Ludwig Saucedo MD POCT ORDERABLES - DEVICE Final R esult Performing Organization Address [facility] Co de Phone Number [facility] [address] [place] [address], [place] [phone] * POCT glucose (01/31/2025 3:17 AM CDT) GLUCOSE POC 72 70 - 109 01/31/2025 3:18 AM CDT [facility] 01/31/2025 3:17 AM CDT us Ludwig Saucedo MD POCT ORDERABLES - DEVICE Final R esult Performing Organization Address [facility] de Phone Number [facility] [address] [place] [address], [phone] * POCT glucose (01/31/2025 12:30 AM CDT) GLUCOSE POC 87 70 - 109 01/31/2025 12:31 AM CDT [facility] 01/31/2025 12:3 0 AM CDT us Ludwig Saucedo MD POCT ORDERABLES - DEVICE Final R esult Performing Organization Address [facility] de Phone Number [facility] [address] [place] [address], [place] [phone] * (ABNORMAL) POCT glucose (01/30/2025 8:17 PM CDT) GLUCOSE POC 179(H) 70 - 109 01/30/2025 9:47 PM CDT [facility] 01/30/2025 8:17 PM CDT us Ludwig Saucedo MD POCT ORDERABLES - DEVICE Final R esult Performing Organization Address [facility] de Phone Number [facility] [address] [place] [address], [place] [phone] * (ABNORMAL) POCT glucose (01/30/2025 4:01 PM CDT) GLUCOSE POC 274(H) 70 - 109 01/30/2025 4:25 PM CDT [facility] 01/30/2025 4:01 PM CDT us Ludwig Saucedo MD POCT ORDERABLES - DEVICE Final R esult Performing Organization Address [facility] de Phone Number [facility] [address] [place] [address], [place] [phone] * (ABNORMAL) POCT glucose (01/30/2025 3:40 PM CDT) GLUCOSE POC 244(H) 70 - 109 01/30/2025 3:49 PM CDT [facility] 01/30/2025 3:40 PM CDT us Ludwig Saucedo MD POCT ORDERABLES - DEVICE Final R esult Performing Organization Address [facility] de Phone Number [facility] [address] [place] [address], [place] [phone] * HEMOGLOBIN AND HEMATOCRIT (01/30/2025 1:19 PM CDT) HGB 12.2 12.0 - 16.0 G/DL 01/30/2025 1:27 PM CDT [facility] HCT 38.3 37.0 - 52.0 % 01/30/2025 1:27 PM CDT [facility] 01/30/2025 1:19 PM CDT Annette Poole MD LABORATORY Final Resu lt Performing Organization Address [facility] de Phone Number [facility] [address] [place] [address], [phone] * (ABNORMAL) POCT glucose (01/30/2025 12:21 PM CDT) GLUCOSE POC 327(H) 70 - 109 01/30/2025 12:27 PM CDT [facility] Comment:Will Repeat Test 01/30/2025 12:2 1 PM CDT us Ludwig Saucedo MD POCT ORDERABLES - DEVICE Final R esult Performing Organization Address [facility] de Phone Number [facility] [address] [place] [address], [phone] * (ABNORMAL) POCT glucose (01/30/2025 9:57 AM CDT) GLUCOSE POC 309(H) 70 - 109 01/30/2025 12:27 PM CDT [facility] 01/30/2025 9:57 AM CDT us Ludwig Saucedo MD POCT ORDERABLES - DEVICE Final R esult Performing Organization Address [facility] de Phone Number [facility] [address] [place] [address], [place] [phone] * (ABNORMAL) POCT glucose (01/30/2025 4:20 AM CDT) GLUCOSE POC 247(H) 70 - 109 01/30/2025 4:23 AM CDT [facility] 01/30/2025 4:20 AM CDT Ludwig Saucedo MD POCT ORDERABLES - DEVICE Final R esult [facility] [address] [place] [address], [phone] * (ABNORMAL) BMP WITHOUT GLUCOSE (01/30/2025 3:10 AM CDT) SODIUM S/P/B 140 136 - 145 MMOL/L 01/30/2025 3:45 AM CDT [facility] POTASSIUM S/P/B 4.1 3.5 - 5.1 MMOL/L 01/30/2025 3:45 AM CDT [facility] CHLORIDE S/P/B 106 97 - 115 MMOL/L 01/30/2025 3:45 AM CDT [facility] CO2 31.8 21.0 - 32.0 MMOL/L 01/30/2025 3:45 AM CDT [facility] BUN 23(H) 7 - 18 MG/DL 01/30/2025 3:45 AM CDT [facility] CREATININE S/P/B 1.19 0.70 - 1.30 MG/DL 01/30/2025 3:45 AM CDT [facility] CALCIUM S/P/B 9.2 8.5 - 10.1 MG/DL 01/30/2025 3:45 AM CDT [facility] ANION GAP 2.2 2.0 - 10.0 MMOL/L 01/30/2025 3:45 AM CDT [facility] GFR ESTIMATE 67(L) >90 ML/MIN/1. 73 M2 01/30/2025 3:45 AM CDT [facility] GFR NOTES GFR REFERENCE S: 01/30/2025 3:45 AM CDT [facility] Comment: THE ESTIMATED GFR IS CALCULATED USING THE 2020 CKD-EPI EQUATION. THE FOLLOWING CATEGORIES FOR GRADING RENAL FUNCTION ARE RECOMMENDED BY THE [employer]NATIONAL [employer]IETY OF NEPHROLOGY (KDIGO 2012 CLINICAL PRACTICE GUIDELINE). G1,NORMAL OR HIGH: >89 ml/min/1.73 m2 G2,MILDLY DECREASED: 60-89 ml/min/1.73 m2 G3A,MILDLY TO MODERATELY DECREASED: 45-59 ml/min/1.73 m2 G3B,MODERATELY TO SEVERELY DECREASED: 30-44 ml/min/1.73 m2 G4,SEVERELY DECREASED: 15-29 ml/min/1.73 m2 G5,KIDNEY FAILURE: <15 ml/min/1.73 m2 01/30/2025 3:10 AM CDT us Ludwig Saucedo MD LABORATORY Final Result Performing Organization Address [facility] de Phone Number [facility] [address] [place] [address], [id number] * (ABNORMAL) POCT glucose (01/30/2025 12:27 AM CDT) GLUCOSE POC 277(H) 70 - 109 01/30/2025 12:34 AM CDT [facility] 01/30/2025 12:2 7 AM CDT us Ludwig Saucedo MD POCT ORDERABLES - DEVICE Final R esult Performing Organization Address [facility] Co de Phone Number [facility] [address] [place] [address], [id number] * (ABNORMAL) POCT glucose (01/29/2025 8:15 PM CDT) GLUCOSE POC 261(H) 70 - 109 01/29/2025 8:44 PM CDT [facility] 01/29/2025 8:15 PM CDT us Ludwig Saucedo MD POCT ORDERABLES - DEVICE Final R esult Performing Organization Address [facility] Co de Phone Number [facility] [address] [place] [address], [place] [phone] * (ABNORMAL) POCT glucose (01/29/2025 6:49 PM CDT) GLUCOSE POC 301(H) 70 - 109 01/29/2025 7:06 PM CDT [facility] 01/29/2025 6:49 PM CDT us Ludwig Saucedo MD POCT ORDERABLES - DEVICE Final R esult Performing Organization Address [facility] de Phone Number [facility] [address] [place] [address], [place] [phone] [id number] * (ABNORMAL) POCT glucose (01/29/2025 11:42 AM CDT) GLUCOSE POC 165(H) 70 - 109 01/29/2025 12:04 PM CDT [facility] 01/29/2025 11:4 2 AM CDT us Ludwig Saucedo MD POCT ORDERABLES - DEVICE Final R esult Performing Organization Address [facility] Co de Phone Number [facility] [address] [place] [address], [place] [phone] * IR PERC HUI CATH PLCMNT (01/29/2025 9:17 AM CDT) Anatomical Region Laterality Modality Abdomen Interventional R adiology 01/29/2025 10:1 8 AM CDT Impressions 01/29/2025 11:24 AM CDT IMPRESSION: Successful image guided percutaneous gastrostomy tube placement (18-Fr), as detailed above. PLAN: 1. Bed rest 2 hours. Transfer to inpatient room when recovery room criteria is met. 2. Leave G-tube to LIS for the next 12 hours. No tube feeds for 24 hours. After 24 hours, may begin tube feeds if there is no signs of peritonitis and hemoglobin is stable on 01/30/25. Flush catheter lumen after each use. 3. IR follow-up in 6 months for routine exchange, or sooner if clinically indicated. Thank you for allowing [facility] assist in this patient's care! Ordered By: NAYA GONZALEZ Interpreted By: Annette Baker MD, 01/29/2025 10:18 AM Narrative 01/29/2025 11:24 AM CDT [place] [id number] IR IMAGE GUIDED PERCUTANEOUS GASTROSTOMY TUBE PLACEMENT HISTORY: 69-year-old male with recent CVA, cervical trauma, dysphagia. IR was consulted for image guided gastrostomy tube placement. COMPARISON: CT chest abdomen and pelvis, 10/21/2025. INTERVENTIONALISTS: STAFF: Annette Baker M.D Hydrogeology Professor: SMITA Garza. CONSENT: The risks, benefits and alternatives to the procedure were explained and informed consent was obtained (by patient's son). Just before beginning the procedure, Dr. Bkaer conducted a *time out* to verify the patient identity and the site and nature of the procedure to be performed. ANESTHESIA: Local anesthesia. 1% local lidocaine. Under Annette Baker MD supervision, midazolam and fentanyl were administered intravenously for moderate sedation. Pulse oximetry, heart rate, and blood pressure were continuously monitored by an independent trained observer (interventional radiology nurse). The IR nurse only role during the procedure was to monitor vital signs and administer moderate sedation medications. Total gqkr-da-jpha sedation time was 20 minutes. The attending physician monitored the sedated patient face to face throughout the procedure. TECHNIQUE: See below. FINDINGS: The enteric tube tip was retracted to the proximal stomach. An area overlying the region of the distal gastric body/antrum junction was selected after insufflation of approximately 600 mL of air. There is a significant there is a safe but limited window to the distal gastric body/antrum. After infiltration of the skin and deep tissues with local anesthetic and under direct fluoroscopic guidance, the stomach was entered with a t-fastener needle, intra-luminal position confirmed with aspiration of air bubbles and a small hand-injection of contrast, and a t-fastener deployed. A second t-fastener was deployed approximately two centimeters from the initial placement in a similar fashion. This was followed by a third T-fastener were deployed approximately 2 cm from the second T fastener. Next, under direct fluoroscopic guidance, an 18-gauge needle was placed into the stomach between the t-fastener entry sites, intra-luminal position confirmed with aspiration of air bubbles and a small hand-injection of contrast, and an 0.035 Amplatz wire was subsequently placed into the stomach. The needle was removed, and over the wire, the tract serially dilated. Over the wire, a 18-Fr gastrostomy tube placed. The retention balloon was insufflated with sterile water, and retracted to an appropriate position. The wire was removed. Appropriate enteral tube tip location(s) was confirmed with a small hand-injection of contrast. The patient tolerated the procedure well with no immediate complications. All wires were removed. Hemostasis was obtained with manual pressure. The procedure was performed following all elements of maximal sterile barrier technique. The field was prepped in a sterile fashion and a sterile field used to protect the area of interest. All operators had a hand scrub for cutaneous antisepsis. All operators used sterile gown and gloves and wore a hat and a mask during the procedure. Ancef was given as the preprocedure antibiotic. See nursing record for details. The procedure was performed using ultrasound and fluoroscopic guidance. Radiation: Patient's radiation exposure - Reference Air Kerma (Ka,r) 25.0 mGy for this procedure. Total fluoroscopy time: 2.3 minutes Multiple permanent ultrasound and fluoroscopic images were sent to PACS. Procedure Note Annette Baker MD - 01/29/[address] [address] IR IMAGE GUIDED PERCUTANEOUS GASTROSTOMY TUBE PLACEMENT HISTORY: 69-year-old male with recent CVA, cervical trauma, dysphagia. IR was consulted for image guided gastrostomy tube placement. COMPARISON: CT chest abdomen and pelvis, 10/21/2025. INTERVENTIONALISTS: STAFF: Annette Baker M.D Hydrogeology Professor: SMITA Garza. CONSENT: The risks, benefits and alternatives to the procedure were explained andinformed consent was obtained (by patient's son). Just before beginningthe procedure, Dr. Baker conducted a *time out* to verify the patientidentity and the site and nature of the procedure to be performed. ANESTHESIA: Local anesthesia. 1% local lidocaine. Under Annette Baker MD supervision, midazolam and fentanyl wereadministered intravenously for moderate sedation. Pulse oximetry, heartrate, and blood pressure were continuously monitored by an independenttrained observer (interventional radiology nurse). The IR nurse only roleduring the procedure was to monitor vital signs and administer moderatesedation medications. Total hlmw-ev-sogb sedation time was 20 minutes.The attending physician monitored the sedated patient face to facethroughout the procedure. TECHNIQUE: See below. FINDINGS: The enteric tube tip was retracted to the proximal stomach. An area overlying the region of the distal gastric body/antrum junctionwas selected after insufflation of approximately 600 mL of air. There is asignificant there is a safe but limited window to the distal gastricbody/antrum. After infiltration of the skin and deep tissues with localanesthetic and under direct fluoroscopic guidance, the stomach was enteredwith a t-fastener needle, intra-luminal position confirmed with aspirationof air bubbles and a small hand-injection of contrast, and a t-fastenerdeployed. A second t-fastener was deployed approximately two centimetersfrom the initial placement in a similar fashion. This was followed by athird T-fastener were deployed approximately 2 cm from the second Tfastener. Next, under direct fluoroscopic guidance, an 18-gauge needle was placedinto the stomach between the t-fastener entry sites, intra-luminalposition confirmed with aspiration of air bubbles and a smallhand-injection of contrast, and an 0.035 Amplatz wire was subsequentlyplaced into the stomach. The needle was removed, and over the wire, the tract serially dilated.Over the wire, a 18-Fr gastrostomy tube placed. The retention balloon wasinsufflated with sterile water, and retracted to an appropriate position.The wire was removed. Appropriate enteral tube tip location(s) wasconfirmed with a small hand-injection of contrast. The patient tolerated the procedure well with no immediatecomplications. All wires were removed. Hemostasis was obtained with manual pressure. The procedure was performed following all elements of maximal sterilebarrier technique. The field was prepped in a sterile fashion and asterile field used to protect the area of interest. All operators had ahand scrub for cutaneous antisepsis. All operators used sterile gown andgloves and wore a hat and a mask during the procedure. Ancef was given as the preprocedure antibiotic. See nursing record fordetails. The procedure was performed using ultrasound and fluoroscopic guidance. Radiation: Patient's radiation exposure - Reference Air Kerma (Ka,r)25.0 mGy for this procedure. Total fluoroscopy time: 2.3 minutes Multiple permanent ultrasound and fluoroscopic images were sent to PACS. IMPRESSION: Successful image guided percutaneous gastrostomy tube placement (18-Fr),as detailed above. PLAN: 1. Bed rest 2 hours. Transfer to inpatient room when recovery roomcriteria is met. 2. Leave G-tube to LIS for the next 12 hours. No tube feeds for 24 hours.After 24 hours, may begin tube feeds if there is no signs of peritonitisand hemoglobin is stable on 01/30/25. Flush catheter lumen after each use. 3. IR follow-up in 6 months for routine exchange, or sooner if clinicallyindicated. Thank you for allowing [facility] assist in thispatient's care! Ordered By: NAYA GONZALEZ Interpreted By: Annette Baker MD, 01/29/2025 10:18 AM us Naya Gonzalez MD INTERVENTIONAL RADIOLOGY Fin al Result * (ABNORMAL) POCT glucose (01/29/2025 8:09 AM CDT) GLUCOSE POC 168(H) 70 - 109 01/29/2025 8:11 AM CDT [facility] 01/29/2025 8:09 AM CDT us Ludwig Saucedo MD POCT ORDERABLES - DEVICE Final R esult Performing Organization Address [facility] Co de Phone Number [facility] [address] [place] [address], [id number] * MAGNESIUM (01/29/2025 7:04 AM CDT) MAGNESIUM 2.4 1.6 - 2.6 MG/DL 01/29/2025 7:39 AM CDT [facility] 01/29/2025 7:04 AM CDT Devonte Kohler MD LABORATORY Final Result Performing Organization Address [facility] Co de Phone Number [facility] [address] [place] [address], [id number] * PHOSPHORUS, INORGANIC PHOSPHATE (01/29/2025 7:04 AM CDT) PHOSPHORUS 2.5 2.5 - 4.9 MG/DL 01/29/2025 7:39 AM CDT [facility] 01/29/2025 7:04 AM CDT us Devonte Kohler MD LABORATORY Final Result Performing Organization Address [facility] Co de Phone Number [facility] [address] [place] [address], [phone] * (ABNORMAL) BASIC METABOLIC PANEL (01/29/2025 7:04 AM CDT) SODIUM S/P/B 141 136 - 145 MMOL/L 01/29/2025 7:39 AM CDT [facility] POTASSIUM S/P/B 3.6 3.5 - 5.1 MMOL/L 01/29/2025 7:39 AM CDT [facility] CHLORIDE S/P/B 104 97 - 115 MMOL/L 01/29/2025 7:39 AM CDT [facility] CO2 34.3(H) 21.0 - 32.0 MMOL/L 01/29/2025 7:39 AM T [facility] GLUCOSE 173(H) 74 - 106 MG/DL 01/29/2025 7:39 AM T [facility] BUN 24(H) 7 - 18 MG/DL 01/29/2025 7:39 AM T [facility] CREATININE S/P/B 1.15 0.70 - 1.30 MG/DL 01/29/2025 7:39 AM T [facility] CALCIUM S/P/B 9.6 8.5 - 10.1 MG/DL 01/29/2025 7:39 AM T [facility] ANION GAP 2.7 2.0 - 10.0 MMOL/L 01/29/2025 7:39 AM T [facility] OSMOLALITY (CALC) 300 MOSM/KG 025 7:39 AM [facility] Comment:REFERENCE RANGE NOT ESTABLISHED GFR ESTIMATE 69(L) >90 ML/MIN/1. 73 M2 01/29/2025 7:39 AM T [facility] GFR NOTES GFR REFERENCE S: 01/29/2025 7:39 AM [facility] Comment: THE ESTIMATED GFR IS CALCULATED USING THE 2020 CKD-EPI EQUATION. THE FOLLOWING CATEGORIES FOR GRADING RENAL FUNCTION ARE RECOMMENDED BY THE INTERNATIONAL SOCIETY OF NEPHROLOGY (KDIGO 2012 CLINICAL PRACTICE GUIDELINE). G1,NORMAL OR HIGH: >89 ml/min/1.73 m2 G2,MILDLY DECREASED: 60-89 ml/min/1.73 m2 G3A,MILDLY TO MODERATELY DECREASED: 45-59 ml/min/1.73 m2 G3B,MODERATELY TO SEVERELY DECREASED: 30-44 ml/min/1.73 m2 G4,SEVERELY DECREASED: 15-29 ml/min/1.73 m2 G5,KIDNEY FAILURE: <15 ml/min/1.73 m2 01/29/2025 7:04 AM CDT Devonte Kohler MD LABORATORY Final Result Performing Organization Address [facility] Co de Phone Number [facility] [address] [place] [address], [phone] * (ABNORMAL) PROTIME/INR, VENOUS (PROTHROMBIN TIME) (01/29/2025 7:04 AM CDT) PROTIME 13.6(H) 9.4 - 12.5 SEC 01/29/2025 7:31 AM CDT [facility] INR 1.2(H) 0.8 - 1.1 01/29/2025 7:31 AM CDT [facility] 01/29/2025 7:04 AM CDT Jluis Blum MD LABORATORY Final Result Performing Organization Address [facility] Co de Phone Number [facility] [address] [place] [address], [phone] * (ABNORMAL) CBC W/DIFF AUTOMATED (01/29/2025 7:04 AM CDT) WBC 8.33 4.00 - 10.80 x10'3/uL 01/29/2025 7:22 AM CDT [facility] RBC 4.73 4.50 - 6.10 x10'6/uL 01/29/2025 7:22 AM CDT [facility] HGB 14.2 12.0 - 16.0 G/DL 01/29/2025 7:22 AM CDT [facility] HCT 43.7 37.0 - 52.0 % 01/29/2025 7:22 AM CDT [facility] MCV 92.4 78.0 - 100.0 FL 01/29/2025 7:22 AM CDT [facility] MCH 30.0 27.0 - 31.0 PG 01/29/2025 7:22 AM CDT [facility] MCHC 32.5(L) 33.0 - 36.0 G/DL 01/29/2025 7:22 AM CDT [facility] RDW 12.7 11.5 - 14.5 % 01/29/2025 7:22 AM CDT [facility] PLT 217 150 - 350 x10'3/uL 01/29/2025 7:22 AM CDT [facility] MPV 9.9 7.4 - 10.4 FL 01/29/2025 7:22 AM CDT [facility] DIFFERENTIAL TYPE AUTOMATED DIFFERENTIAL 01/29/2025 7:22 AM CDT [facility] SEG NEUTROPHILS 79.1 % 7:22 AM CDT [facility] LYMPHOCYTES 10.4 % 01/29/2025 7:22 AM CDT [facility] MONOCYTES 9.2 % 01/29/2025 7:22 AM CDT [facility] EOSINOPHILS 0.4 % 01/29/2025 7:22 AM CDT [facility] BASOPHILS 0.4 % 01/29/2025 7:22 AM CDT [facility] IMMATURE GRANS % 0.5 % 01/30/20 [facility] NEUTROPHILS 6.59 1.60 - 8.30 x10'3/uL 01/29/2025 7:22 AM CDT [facility] ABS. LYMPHOCYTES 0.87 0.80 - 4.70 x10'3/uL 01/29/2025 7:22 AM CDT [facility] ABS. MONOCYTES 0.77 0.00 - 1.50 x10'3/uL 01/29/2025 7:22 AM CDT [facility] ABS. EOSINOPHILS 0.03 0.00 - 0.40 x10'3/uL 01/29/2025 7:22 AM CDT [facility] ABS. BASOPHILS 0.03 0.00 - 0.20 x10'3/uL 01/29/2025 7:22 AM CDT [facility] ABS. IMMATURE GRANULOCYTES 0.04(H) 0.00 - 0.03 x10'3/uL 01/29/2025 7:22 AM CDT [facility] ABS. NUCLEATED RBC'S 0.00 0.00 - 0.01 x10'3/uL 01/29/2025 7:22 AM CDT [facility] NRBC % 0.0 % 01/29/2025 7:22 AM CDT [facility] 01/29/2025 7:04 AM CDT Jluis Blum MD LABORATORY Final Result Performing Organization Address [facility] de Phone Number [facility] [address] [place] [address], [phone] * (ABNORMAL) POCT glucose (01/29/2025 5:19 AM CDT) GLUCOSE POC 164(H) 70 - 109 01/29/2025 5:26 AM CDT [facility] 01/29/2025 5:19 AM CDT us Devonte Kohler MD POCT ORDERABLES - DEVICE Final R esult Performing Organization Address [facility] de Phone Number [facility] [address] [place] [address], [phone] * (ABNORMAL) POCT glucose (01/29/2025 12:48 AM CDT) GLUCOSE POC 208(H) 70 - 109 01/29/2025 1:32 AM CDT [facility] 01/29/2025 12:4 8 AM CDT us Devonte Kohler MD POCT ORDERABLES - DEVICE Final R esult Performing Organization Address [facility]/ZIP Co de Phone Number [facility] [address] [place] [address], [place] [phone] * (ABNORMAL) POCT glucose (01/29/2025 12:02 AM CDT) GLUCOSE POC 52(L) 70 - 109 01/29/2025 1:33 AM CDT [facility] 01/29/2025 12:0 2 AM CDT us Devonte Kohler MD POCT ORDERABLES - DEVICE Final R esult Performing Organization Address [facility] Co de Phone Number [facility] [address] [place] [address], [place] [phone] * (ABNORMAL) POCT glucose (01/28/2025 11:21 PM CDT) GLUCOSE POC 68(L) 70 - 109 01/29/2025 1:32 AM CDT [facility] 01/28/2025 11:2 1 PM CDT us Devonte Kohler MD POCT ORDERABLES - DEVICE Final R esult Performing Organization Address [facility] Co de Phone Number [facility] [address] [place] [address], [place] [phone] * (ABNORMAL) POCT glucose (01/28/2025 11:11 PM CDT) GLUCOSE POC 55(L) 70 - 109 01/28/2025 11:14 PM CDT [facility] 01/28/2025 11:1 1 PM CDT us Devonte Kohler MD POCT ORDERABLES - DEVICE Final R esult Performing Organization Address [facility] de Phone Number [facility] [address] [place] [address], [place] [phone] * (ABNORMAL) POCT glucose (01/28/2025 8:44 PM CDT) GLUCOSE POC 118(H) 70 - 109 01/28/2025 9:12 PM CDT [facility] 01/28/2025 8:44 PM CDT us Devonte Kohler MD POCT ORDERABLES - DEVICE Final R esult Performing Organization Address [facility] de Phone Number [facility] [address] [place] [address], [place] [phone] * (ABNORMAL) POCT glucose (01/28/2025 3:39 PM CDT) GLUCOSE POC 280(H) 70 - 109 01/28/2025 3:41 PM CDT [facility] 01/28/2025 3:39 PM CDT us Devonte Kohler MD POCT ORDERABLES - DEVICE Final R esult Performing Organization Address [facility] de Phone Number [facility] [address] [place] [address], [place] [phone] * XR NG/FEED TUBE PLCMT FLUORO (01/28/2025 2:50 PM CDT) Anatomical Region Laterality Modality Abdomen, Pelvis Fluoroscopy 01/28/2025 3:14 PM CDT Impressions 01/28/2025 3:49 PM CDT IMPRESSION: Successful placement of nasoenteric feeding tube into the gastric lumen. If postpyloric placement is desired, follow-up abdomen radiograph could be obtained to assess for peristaltic advancement. Dictated By: Sinan Brown MD on 01/28/2025 3:14 PM The attending radiologist has reviewed the image(s) and agrees with the content of this report. Referred By: ISAK KANG Interpreted By: Sinan Brown MD, 01/28/2025 3:14 PM Narrative 01/28/2025 3:[address] [address] Examination: XR NG/FEED TUBE PLCMT FLUORO Exam time: 01/28/2025 2:15 PM Clinical history: NG tube placement for PEG tube placement tomorrow Comparison: 01/25/2025 feeding tube placement Technique & Findings: The procedure, as well as the risks and benefits, was explained to the patient's family member in detail due to the clinical indication status. The patient's and their family member's questions and concerns were addressed and informed consent was obtained prior to the patient entering the fluoroscopy suite. Fluoroscopic guidance was utilized during placement of a nasoenteric feeding tube. The nasoenteric feeding tube coated in viscous lidocaine gel was passed through the patient's left naris and into the stomach. An interprocedural image was obtained to document placement. The nasoenteric feeding tube was subsequently secured with a nasal bridle. The tube was then flushed with water to ensure patency. There were no immediate postprocedural complications, and the patient left the department in stable condition. Total fluoroscopic time: 0.4 minute(s). Reference air kerma: 6.5 mGy. Total number of images saved: 1. Procedure Note Idris Garcia DO - 01/28/[address] [address] Examination: XR NG/FEED TUBE PLCMT FLUORO Exam time: 01/28/2025 2:15 PM Clinical history: NG tube placement for PEG tube placement tomorrow Comparison: 01/25/2025 feeding tube placement Technique & Findings: The procedure, as well as the risks and benefits, was explained to thepatient's family member in detail due to the clinical indication status.The patient's and their family member's questions and concerns wereaddressed and informed consent was obtained prior to the patient enteringthe fluoroscopy suite. Fluoroscopic guidance was utilized during placement of a nasoentericfeeding tube. The nasoenteric feeding tube coated in viscous lidocaine gelwas passed through the patient's left naris and into the stomach. Aninterprocedural image was obtained to document placement. The nasoentericfeeding tube was subsequently secured with a nasal bridle. The tube wasthen flushed with water to ensure patency. There were no immediatepostprocedural complications, and the patient left the department instable condition. Total fluoroscopic time: 0.4 minute(s). Reference air kerma: 6.5 mGy.Total number of images saved: 1. IMPRESSION: Successful placement of nasoenteric feeding tube into the gastric lumen.If postpyloric placement is desired, follow-up abdomen radiograph could beobtained to assess for peristaltic advancement. Dictated By: Sinan Brown MD on 01/28/2025 3:14 PM The attending radiologist has reviewed the image(s) and agrees with thecontent of this report. Referred By: ISAK KANG Interpreted By: Sinan Brown MD, 01/28/2025 3:14 PM us Devonte Kohler MD FLUOROSCOPY Final Result * (ABNORMAL) POCT glucose (01/28/2025 12:49 PM CDT) GLUCOSE POC 252(H) 70 - 109 01/28/2025 12:54 PM CDT [facility] 01/28/2025 12:4 9 PM CDT us Devonte Kohler MD POCT ORDERABLES - DEVICE Final R esult [facility] [address] [place] [address], [place] [phone] * (ABNORMAL) POCT glucose (01/28/2025 4:46 AM CDT) GLUCOSE POC 128(H) 70 - 109 01/28/2025 4:48 AM CDT [facility] 01/28/2025 4:46 AM CDT us Devonte Kohler MD POCT ORDERABLES - DEVICE Final R esult Performing Organization Address City/[facility]/ZIP Co de Phone Number [facility] [address] [place] [address], [phone] * (ABNORMAL) POCT glucose (01/27/2025 11:20 PM CDT) GLUCOSE POC 188(H) 70 - 109 01/27/2025 11:35 PM CDT [facility] 01/27/2025 11:2 0 PM CDT us Devonte Kohler MD POCT ORDERABLES - DEVICE Final R esult Performing Organization Address [facility]/ZIP Co de Phone Number [facility] [address] [place] [address], [place] [phone] * (ABNORMAL) POCT glucose (01/27/2025 8:35 PM CDT) GLUCOSE POC 165(H) 70 - 109 01/27/2025 9:00 PM CDT [facility] 01/27/2025 8:35 PM CDT us Devonte Kohler MD POCT ORDERABLES - DEVICE Final R esult Performing Organization Address City/[facility]/ZIP Co de Phone Number [facility] [address] [place] [address], [phone] * (ABNORMAL) POCT glucose (01/27/2025 3:48 PM CDT) GLUCOSE POC 152(H) 70 - 109 01/27/2025 4:13 PM CDT [facility] 01/27/2025 3:48 PM CDT us Devonte Kohler MD POCT ORDERABLES - DEVICE Final R esult Performing Organization Address City/[facility]/ZIP Co de Phone Number [facility] [address] [place] [address], [place] [phone] * (ABNORMAL) POCT glucose (01/27/2025 11:28 AM CDT) GLUCOSE POC 251(H) 70 - 109 01/27/2025 12:51 PM CDT [facility] Comment:Will Repeat Test 01/27/2025 11:2 8 AM CDT us Devonte Kohler MD POCT ORDERABLES - DEVICE Final R esult Performing Organization Address [facility] Co de Phone Number [facility] [address] [place] [address], [place] [phone] * (ABNORMAL) POCT glucose (01/27/2025 8:31 AM CDT) GLUCOSE POC 253(H) 70 - 109 01/27/2025 9:12 AM CDT [facility] 01/27/2025 8:31 AM CDT us Devonte Kohler MD POCT ORDERABLES - DEVICE Final R esult Performing Organization Address City/[facility] Co de Phone Number [facility] [address] [place] [address], [place] [phone] * (ABNORMAL) POCT glucose (01/27/2025 3:54 AM CDT) GLUCOSE POC 124(H) 70 - 109 01/27/2025 3:56 AM CDT [facility] 01/27/2025 3:54 AM CDT Naya Gonzalez MD POCT ORDERABLES - DEVICE Fin al Result Performing Organization Address [facility] Co de Phone Number [facility] [address] [place] [address], [place] [phone] * PHOSPHORUS, INORGANIC PHOSPHATE (01/27/2025 2:10 AM CDT) Pathologist [facility] PHOSPHORUS 3.5 2.5 - 4.9 MG/DL 01/27/2025 2:45 AM CDT [facility] 01/27/2025 2:10 AM CDT Tonia Medrano NP LABORATORY Final Result Performing Organization Address [facility] de Phone Number [facility] [address] [place] [address], [place] [phone] * MAGNESIUM (01/27/2025 2:10 AM CDT) MAGNESIUM 2.5 1.6 - 2.6 MG/DL 01/27/2025 2:45 AM CDT [facility] 01/27/2025 2:10 AM CDT Tonia Medrano NP LABORATORY Final Result Performing Organization Address [facility] Co de Phone Number [facility] [address] [place] [address], [place] [phone] * (ABNORMAL) BASIC METABOLIC PANEL (01/27/2025 2:10 AM CDT) SODIUM S/P/B 140 136 - 145 MMOL/L 01/27/2025 2:45 AM CDT [facility] POTASSIUM S/P/B 3.8 3.5 - 5.1 MMOL/L 01/27/2025 2:45 AM T [facility] CHLORIDE S/P/B 103 97 - 115 MMOL/L 01/27/2025 2:45 AM T [facility] CO2 32.3(H) 21.0 - 32.0 MMOL/L 01/27/2025 2:45 AM CDT [facility] GLUCOSE 122(H) 74 - 106 MG/DL 01/27/2025 2:45 AM T [facility] BUN 41(H) 7 - 18 MG/DL 01/27/2025 2:45 AM [facility] LAB CREATININE S/P/B 1.29 0.70 - 1.30 MG/DL 01/27/2025 2:45 AM CDT [facility] CALCIUM S/P/B 9.4 8.5 - 10.1 MG/DL 01/27/2025 2:45 AM T [facility] ANION GAP 4.7 2.0 - 10.0 MMOL/L 01/27/2025 2:45 AM T [facility] OSMOLALITY (CALC) 301 MOSM/KG 025 2:45 AM T [facility] Comment:REFERENCE RANGE NOT ESTABLISHED GFR ESTIMATE 60(L) >90 ML/MIN/1. 73 M2 01/27/2025 2:45 AM T [facility] GFR NOTES GFR REFERENCE S: 01/27/2025 2:45 AM [facility] Comment: THE ESTIMATED GFR IS CALCULATED USING THE 2020 CKD-EPI EQUATION. THE FOLLOWING CATEGORIES FOR GRADING RENAL FUNCTION ARE RECOMMENDED BY THE INTERNATIONAL SOCIETY OF NEPHROLOGY (KDIGO 2012 CLINICAL PRACTICE GUIDELINE). G1,NORMAL OR HIGH: >89 ml/min/1.73 m2 G2,MILDLY DECREASED: 60-89 ml/min/1.73 m2 G3A,MILDLY TO MODERATELY DECREASED: 45-59 ml/min/1.73 m2 G3B,MODERATELY TO SEVERELY DECREASED: 30-44 ml/min/1.73 m2 G4,SEVERELY DECREASED: 15-29 ml/min/1.73 m2 G5,KIDNEY FAILURE: <15 ml/min/1.73 m2 01/27/2025 2:10 AM CDT Tonia Medrano NP LABORATORY Final Result [facility] [address] [place] [address], [phone] * (ABNORMAL) CBC W/DIFF AUTOMATED (01/27/2025 2:10 AM CDT) WBC 7.46 4.00 - 10.80 x10'3/uL 01/27/2025 2:35 AM CDT [facility] RBC 4.82 4.50 - 6.10 x10'6/uL 01/27/2025 2:35 AM CDT [facility] HGB 13.9 12.0 - 16.0 G/DL 01/27/2025 2:35 AM CDT [facility] HCT 43.9 37.0 - 52.0 % 01/27/2025 2:35 AM CDT [facility] MCV 91.1 78.0 - 100.0 FL 01/27/2025 2:35 AM CDT [facility] MCH 28.8 27.0 - 31.0 PG 01/27/2025 2:35 AM CDT [facility] MCHC 31.7(L) 33.0 - 36.0 G/DL 01/27/2025 2:35 AM CDT [facility] RDW 12.8 11.5 - 14.5 % 01/27/2025 2:35 AM CDT [facility] PLT 193 150 - 350 x10'3/uL 01/27/2025 2:35 AM CDT [facility] MPV 9.8 7.4 - 10.4 FL 01/27/2025 2:35 AM CDT [facility] DIFFERENTIAL TYPE AUTOMATED DIFFERENTIAL 01/27/2025 2:35 AM CDT [facility] SEG NEUTROPHILS 72.0 % 2:35 AM CDT [facility] LYMPHOCYTES 14.5 % 01/27/2025 2:35 AM CDT [facility] MONOCYTES 12.3 % 01/27/2025 2:35 AM CDT [facility] EOSINOPHILS 0.4 % 01/27/2025 2:35 AM CDT [facility] BASOPHILS 0.3 % 01/27/2025 2:35 AM CDT [facility] IMMATURE GRANS % 0.5 % 01/28/20 2:35 AM CDT [facility] ABS. NEUTROPHILS 5.37 1.60 - 8.30 x10'3/uL 01/27/2025 2:35 AM CDT [facility] ABS. LYMPHOCYTES 1.08 0.80 - 4.70 x10'3/uL 01/27/2025 2:35 AM CDT [facility] ABS. MONOCYTES 0.92 0.00 - 1.50 x10'3/uL 01/27/2025 2:35 AM CDT [facility] ABS. EOSINOPHILS 0.03 0.00 - 0.40 x10'3/uL 01/27/2025 2:35 AM CDT [facility] ABS. BASOPHILS 0.02 0.00 - 0.20 x10'3/uL 01/27/2025 2:35 AM CDT [facility] ABS. IMMATURE GRANULOCYTES 0.04(H) 0.00 - 0.03 x10'3/uL 01/27/2025 2:35 AM CDT [facility] ABS. NUCLEATED RBC'S 0.00 0.00 - 0.01 x10'3/uL 01/27/2025 2:35 AM CDT [facility] NRBC % 0.0 % 01/27/2025 2:35 AM CDT [facility] 01/27/2025 2:10 AM CDT Tonia Medrano INSTALLATION SERVICE REPRESENTATIVE LABORATORY Final Result Performing Organization Address [facility]/ZIP Co de Phone Number [facility] [address] [place] [address], [phone] * (ABNORMAL) POCT glucose (01/27/2025 12:32 AM CDT) GLUCOSE POC 184(H) 70 - 109 01/27/2025 3:56 AM CDT [facility] 01/27/2025 12:3 2 AM CDT Naya Gonzalez MD POCT ORDERABLES - DEVICE Fin al Result Performing Organization Address [facility] de Phone Number [facility] [address] [place] [address], [phone] * (ABNORMAL) POCT glucose (01/26/2025 11:28 PM CDT) GLUCOSE POC 204(H) 70 - 109 01/27/2025 12:18 AM CDT [facility] 01/26/2025 11:2 8 PM CDT Naya Gonzalez MD POCT ORDERABLES - DEVICE Fin al Result Performing Organization Address [facility] Co de Phone Number [facility] [address] [place] [address], [phone] * (ABNORMAL) POCT glucose (01/26/2025 9:46 PM CDT) GLUCOSE POC 234(H) 70 - 109 01/26/2025 9:48 PM CDT [facility] 01/26/2025 9:46 PM CDT us Naya Gonzalez MD POCT ORDERABLES - DEVICE Fin al Result Performing Organization Address [facility] de Phone Number [facility] [address] [place] [address], [place] [phone] * (ABNORMAL) POCT glucose (01/26/2025 8:14 PM CDT) GLUCOSE POC 233(H) 70 - 109 01/26/2025 9:48 PM CDT [facility] 01/26/2025 8:14 PM CDT us Naya Gonzalez MD POCT ORDERABLES - DEVICE Fin al Result Performing Organization Address [facility] de Phone Number [facility] [address] [place] [address], [place] [phone] * (ABNORMAL) POCT glucose (01/26/2025 5:49 PM CDT) GLUCOSE POC 215(H) 70 - 109 01/26/2025 5:50 PM CDT [facility] 01/26/2025 5:49 PM CDT us Naya Gonzalez MD POCT ORDERABLES - DEVICE Fin al Result Performing Organization Address [facility] de Phone Number [facility] [address] [place] [address], [place] [phone] * XR ABD UPRIGHT (01/26/2025 3:55 PM CDT) Anatomical Region Laterality Modality Abdomen Radiographic Lindsey ging 01/26/2025 6:29 PM CDT Impressions 01/26/2025 6:53 PM CDT IMPRESSION: Enteric tube in appropriate position, with tip projecting over the region of the third portion of the duodenum. Dictated By: Sinan Brown MD on 01/26/2025 6:29 PM The attending radiologist has reviewed the image(s) and agrees with the content of this report. Ordered By: NAYA GONZALEZ Interpreted By: Sinan Brown MD, 01/26/2025 6:29 PM Narrative 01/26/2025 6:53 PM [address]T [address] [address] Examination: Abdomen 1 view Exam time: 15:50 Clinical history: Exam done for keofed pulled out slightly/check position. Comparison: Same day 02/21/2025 feeding tube placement Technique: Single supine view of the abdomen were obtained. Findings: There is an enteric tube with tip projecting over the region of the third portion of the duodenum. This appears similar to fluoroscopic feeding tube placement from earlier today. Mild gaseous distention of visualized bowel. Postsurgical sternotomy wires. Bibasilar atelectasis. Procedure Note Alfie Davey MD - 01/26/[address] [address] Examination: Abdomen 1 view Exam time: 15:50 Clinical history: Exam done for keofed pulled out slightly/check position. Comparison: Same day 02/21/2025 feeding tube placement Technique: Single supine view of the abdomen were obtained. Findings: There is an enteric tube with tip projecting over the region ofthe third portion of the duodenum. This appears similar to fluoroscopicfeeding tube placement from earlier today. Mild gaseous distention of visualized bowel. Postsurgical sternotomywires. Bibasilar atelectasis. IMPRESSION: Enteric tube in appropriate position, with tip projecting over the regionof the third portion of the duodenum. Dictated By: Sinan Brown MD on 01/26/2025 6:29 PM The attending radiologist has reviewed the image(s) and agrees with thecontent of this report. Ordered By: NAYA GONZALEZ Interpreted By: Sinan Brown MD, 01/26/2025 6:29 PM us Naya Gonzalez MD GENERAL IMAGING Final Result * (ABNORMAL) POCT glucose (01/26/2025 3:37 PM CDT) GLUCOSE POC 237(H) 70 - 109 01/26/2025 3:38 PM CDT [facility] 01/26/2025 3:37 PM CDT us Naya Gonzalez MD POCT ORDERABLES - DEVICE Fin al Result Performing Organization Address City/State/[facility] Co de Phone Number [facility] [address] [place] [address], [phone] * ECG 12 lead (01/26/2025 1:50 PM CDT) 01/26/2025 1:50 PM CDT Narrative [facility] - 01/26/2025 2:06 [place] [address] Test Date: 2025-01-26 Pat Name: ОЛЕГ WATSON Department: 1 Room: [facility] Gender: Male Legislators: : 1955 Requested By: NAYA GONZALEZ Order Number: [id number] Reading MD: Wil Rogers Measurements Intervals [place] Rate: 99 P: 18 WI: 167 QRS: -13 QRSD: 92 T: 55 QT: 332 QTc: 427 Interpretive Statements SINUS RHYTHM POSSIBLE ANTERIOR MYOCARDIAL INFARCTION , OF INDETERMINATE AGE POSSIBLE INFERIOR MYOCARDIAL INFARCTION , PROBABLY OLD Procedure Note Wil Rogers MD - 01/26/2025 [facility] [address] [place] [address] Test Date: 2025-01-26 Pat Name: ОЛЕГ WATSON Department: 1 Room: 72A Gender: Male Legislators: : 1955 Requested By: NAYA GONZALEZ Order Number: [id number] Reading MD: Wil Rogers Measurements Intervals [place] Rate: 99 P: 18 WI: 167 QRS: -13 QRSD: 92 T: 55 QT: 332 QTc: 427 Interpretive Statements SINUS RHYTHM POSSIBLE ANTERIOR MYOCARDIAL INFARCTION , OF INDETERMINATE AGE POSSIBLE INFERIOR MYOCARDIAL INFARCTION , PROBABLY OLD us Naya Gonzalez MD ECG ORDERABLES Final Result Performing Organization Address [facility] Co de Phone Number [facility] * (ABNORMAL) POCT glucose (01/26/2025 11:26 AM CDT) GLUCOSE POC 193(H) 70 - 109 01/26/2025 12:14 PM CDT [facility] 01/26/2025 11:2 6 AM CDT us Naya Gonzalez MD POCT ORDERABLES - DEVICE Fin al Result Performing Organization Address [facility] de Phone Number [facility] [address] [place] [address], [phone] * (ABNORMAL) POCT glucose (01/26/2025 9:14 AM CDT) GLUCOSE POC 170(H) 70 - 109 01/26/2025 9:15 AM CDT [facility] 01/26/2025 9:14 AM CDT us Naya Gonzalez MD POCT ORDERABLES - DEVICE Fin al Result Performing Organization Address [facility] Co de Phone Number [facility] [address] [place] [address], [place] [phone] * (ABNORMAL) POCT glucose (01/26/2025 5:15 AM CDT) GLUCOSE POC 142(H) 70 - 109 01/26/2025 5:41 AM CDT [facility] Comment:RN Notified 01/26/2025 5:15 AM CDT us Naya Gonzalez MD POCT ORDERABLES - DEVICE Fin al Result Performing Organization Address [facility] Co de Phone Number [facility] [address] [place] [address], [place] [phone] * (ABNORMAL) POCT glucose (01/26/2025 3:43 AM CDT) GLUCOSE POC 161(H) 70 - 109 01/26/2025 3:48 AM CDT [facility] 01/26/2025 3:43 AM CDT us Naya Gonzalez MD POCT ORDERABLES - DEVICE Fin al Result Performing Organization Address City/[facility]/ZIP De de Phone Number [facility] [address] [place] [address], [place] [phone] * (ABNORMAL) COMPREHENSIVE METABOLIC PANEL (01/26/2025 1:56 AM CDT) SODIUM S/P/B 139 136 - 145 MMOL/L 01/26/2025 2:49 AM CDT [facility] POTASSIUM S/P/B 3.7 3.5 - 5.1 MMOL/L 01/26/2025 2:49 AM CDT [facility] CHLORIDE S/P/B 103 97 - 115 MMOL/L 01/26/2025 2:49 AM CDT [facility] CO2 29.7 21.0 - 32.0 MMOL/L 01/26/2025 2:49 AM CDT [facility] GLUCOSE 183(H) 74 - 106 MG/DL 01/26/2025 2:49 AM CDT [facility] BUN 36(H) 7 - 18 MG/DL 01/26/2025 2:49 AM CDT [facility] CREATININE S/P/B 1.33(H) 0.70 - 1.30 MG/DL 01/26/2025 2:49 AM CDT [facility] CALCIUM S/P/B 9.3 8.5 - 10.1 MG/DL 01/26/2025 2:49 AM CDT [facility] BILIRUBIN TOTAL S/P/B 0.4 0.2 - 1.0 MG/DL 01/26/2025 2:49 AM CDT [facility] ALKALINE PHOSPHATASE S/P/B 106 45 - 115 U/L 01/26/2025 2:49 AM CDT [facility] AST 27 15 - 37 U/L 01/26/2025 2:49 AM CDT [facility] ALT 22 16 - 61 U/L 01/26/2025 2:49 AM CDT [facility] TOTAL PROTEIN S/P/B 7.1 6.4 - 8.2 G/DL 01/26/2025 2:49 AM CDT [facility] ALBUMIN S/P/B 2.3(L) 3.4 - 5.0 G/DL 01/26/2025 2:49 AM CDT [facility] ANION GAP 6.3 2.0 - 10.0 MMOL/L 01/26/2025 2:49 AM CDT [facility] OSMOLALITY (CALC) 301 MOSM/KG 025 2:49 AM T [facility] Comment:REFERENCE RANGE NOT ESTABLISHED GFR ESTIMATE 58(L) >90 ML/MIN/1. 73 M2 01/26/2025 2:49 AM CDT [facility] GFR NOTES GFR REFERENCE S: 01/26/2025 2:49 AM CDT [facility] Comment: THE ESTIMATED GFR IS CALCULATED USING THE 2020 CKD-EPI EQUATION. THE FOLLOWING CATEGORIES FOR GRADING RENAL FUNCTION ARE RECOMMENDED BY THE INTERNATIONAL SOCIETY OF NEPHROLOGY (KDIGO 2012 CLINICAL PRACTICE GUIDELINE). G1,NORMAL OR HIGH: >89 ml/min/1.73 m2 G2,MILDLY DECREASED: 60-89 ml/min/1.73 m2 G3A,MILDLY TO MODERATELY DECREASED: 45-59 ml/min/1.73 m2 G3B,MODERATELY TO SEVERELY DECREASED: 30-44 ml/min/1.73 m2 G4,SEVERELY DECREASED: 15-29 ml/min/1.73 m2 G5,KIDNEY FAILURE: <15 ml/min/1.73 m2 01/26/2025 1:56 AM CDT us Naya Gonzalez MD LABORATORY Final Result Performing Organization Address City/[facility]/ZIP Co de Phone Number [facility] [address] [place] [address], [phone] * PHOSPHORUS, INORGANIC PHOSPHATE (01/26/2025 1:56 AM CDT) PHOSPHORUS 3.7 2.5 - 4.9 MG/DL 01/26/2025 2:49 AM CDT [facility] 01/26/2025 1:56 AM CDT us Tonia Medrano NP LABORATORY Final Result Performing Organization Address [facility]/ZIP Co de Phone Number [facility] [address] [place] [address], [phone] * MAGNESIUM (01/26/2025 1:56 AM CDT) MAGNESIUM 2.4 1.6 - 2.6 MG/DL 01/26/2025 2:49 AM CDT [facility] 01/26/2025 1:56 AM CDT Tonia Medrano NP LABORATORY Final Result [facility] [address] [place] [address], [place] [phone] * (ABNORMAL) CBC W/DIFF AUTOMATED (01/26/2025 1:56 AM CDT) WBC 7.53 4.00 - 10.80 x10'3/uL 01/26/2025 2:26 AM CDT [facility] RBC 4.62 4.50 - 6.10 x10'6/uL 01/26/2025 2:26 AM CDT [facility] HGB 13.3 12.0 - 16.0 G/DL 01/26/2025 2:26 AM CDT [facility] HCT 41.6 37.0 - 52.0 % 01/26/2025 2:26 AM CDT [facility] MCV 90.0 78.0 - 100.0 FL 01/26/2025 2:26 AM CDT [facility] MCH 28.8 27.0 - 31.0 PG 01/26/2025 2:26 AM CDT [facility] MCHC 32.0(L) 33.0 - 36.0 G/DL 01/26/2025 2:26 AM CDT [facility] RDW 12.9 11.5 - 14.5 % 01/26/2025 2:26 AM CDT [facility] PLT 198 150 - 350 x10'3/uL 01/26/2025 2:26 AM CDT [facility] MPV 9.6 7.4 - 10.4 FL 01/26/2025 2:26 AM CDT [facility] DIFFERENTIAL TYPE AUTOMATED DIFFERENTIAL 01/26/2025 2:26 AM CDT [facility] SEG NEUTROPHILS 76.8 % 2:26 AM CDT [facility] LYMPHOCYTES 10.5 % 01/26/2025 2:26 AM CDT [facility] MONOCYTES 12.0 % 01/26/2025 2:26 AM CDT [facility] EOSINOPHILS 0.1 % 01/26/2025 2:26 AM CDT [facility] BASOPHILS 0.3 % 01/26/2025 2:26 AM CDT [facility] IMMATURE GRANS % 0.3 % 01/27/20 2:26 AM CDT [facility] ABS. NEUTROPHILS 5.79 1.60 - 8.30 x10'3/uL 01/26/2025 2:26 AM CDT [facility] ABS. LYMPHOCYTES 0.79(L) 0.80 - 4.70 x10'3/uL 01/26/2025 2:26 AM CDT [facility] ABS. MONOCYTES 0.90 0.00 - 1.50 x10'3/uL 01/26/2025 2:26 AM CDT [facility] ABS. EOSINOPHILS 0.01 0.00 - 0.40 x10'3/uL 01/26/2025 2:26 AM CDT [facility] ABS. BASOPHILS 0.02 0.00 - 0.20 x10'3/uL 01/26/2025 2:26 AM CDT [facility] ABS. IMMATURE GRANULOCYTES 0.02 0.00 - 0.03 x10'3/uL 01/26/2025 2:26 AM CDT [facility] ABS. NUCLEATED RBC'S 0.00 0.00 - 0.01 x10'3/uL 01/26/2025 2:26 AM CDT [facility] NRBC % 0.0 % 01/26/2025 2:26 AM CDT [facility] 01/26/2025 1:56 AM CDT us Tonia Medrano NP LABORATORY Final Result Performing Organization Address [facility] de Phone Number [facility] [address] [place] [address], [place] [phone] * (ABNORMAL) POCT glucose (01/26/2025 12:33 AM CDT) GLUCOSE POC 172(H) 70 - 109 01/26/2025 12:35 AM CDT [facility] Comment:RN Notified 01/26/2025 12:3 3 AM CDT us Naya Gonzalez MD POCT ORDERABLES - DEVICE Fin al Result Performing Organization Address [facility] de Phone Number [facility] [address] [place] [address], [phone] * (ABNORMAL) POCT glucose (01/25/2025 9:38 PM CDT) GLUCOSE POC 200(H) 70 - 109 01/25/2025 9:41 PM CDT [facility] 01/25/2025 9:38 PM CDT us Naya Gonzalez MD POCT ORDERABLES - DEVICE Fin al Result Performing Organization Address [facility] de Phone Number [facility] [address] [place] [address], [place] [phone] * (ABNORMAL) POCT glucose (01/25/2025 6:32 PM CDT) GLUCOSE POC 222(H) 70 - 109 01/25/2025 6:38 PM CDT [facility] 01/25/2025 6:32 PM CDT us Naya Gonzalez MD POCT ORDERABLES - DEVICE Fin al Result Performing Organization Address [facility] de Phone Number [facility] [address] [place] [address], [place] [phone] * (ABNORMAL) POCT glucose (01/25/2025 4:22 PM CDT) GLUCOSE POC 242(H) 70 - 109 01/25/2025 4:24 PM CDT [facility] 01/25/2025 4:22 PM CDT Naya Gonzalez MD POCT ORDERABLES - DEVICE Fin al Result Performing Organization Address [facility] de Phone Number [facility] [address] [place] [address], [place] [phone] * (ABNORMAL) POCT glucose (01/25/2025 1:08 PM CDT) GLUCOSE POC 197(H) 70 - 109 01/25/2025 1:32 PM CDT [facility] 01/25/2025 1:08 PM CDT Naya Gonzalez MD POCT ORDERABLES - DEVICE Fin al Result Performing Organization Address [facility] de Phone Number [facility] [address] [place] [address], [place] [phone] * XR NG/FEED TUBE PLCMT FLUORO (01/25/2025 11:45 AM CDT) Anatomical Region Laterality Modality Abdomen, Pelvis Fluoroscopy 01/25/2025 11:5 8 AM CDT Impressions 01/25/2025 1:10 PM CDT IMPRESSION: Keofeed tube placed into the second portion of the duodenum. The attending radiologist, Dr. Shyam Vigil MD, was available during all critical portions of the procedure, has reviewed the image(s) and agrees with the content of this report. Ordered By: ANYA GONZALEZ Interpreted By: Chucho Crockett MD, 01/25/2025 11:58 AM Narrative 01/25/2025 1:[address] PM [address] [address] EXAMINATION: XR NG/FEED TUBE PLCMT FLUORO EXAM TIME: 01/25/2025 10:52 AM HISTORY: Unable to swallow COMPARISON: Feeding tube 01/21/2025 TECHNIQUE/FINDINGS: Under fluoroscopic guidance, a Keofeed nasoenteric feeding tube was advanced through the left nare, down the esophagus, through the gastroesophageal junction, and into the second portion of the duodenum. Air contrast was used to confirm the placement. A nasal coverlet was then placed to secure the Keofed tube. The tube was flushed with a small amount of water to confirm patency after placement. No immediate complications were noted. Total fluoroscopic time utilized was 4.5 minutes, 1 image(s), and reference air kerma 82.8 mGy for this procedure. Procedure Note Shyam Vigil MD - 01/25/[address] [address] EXAMINATION: XR NG/FEED TUBE PLCMT FLUORO EXAM TIME: 01/25/2025 10:52 AM HISTORY: Unable to swallow COMPARISON: Feeding tube 01/21/2025 TECHNIQUE/FINDINGS: Under fluoroscopic guidance, a Keofeed nasoentericfeeding tube was advanced through the left nare, down the esophagus,through the gastroesophageal junction, and into the second portion of theduodenum. Air contrast was used to confirm the placement. A nasal coverletwas then placed to secure the Keofed tube. The tube was flushed with asmall amount of water to confirm patency after placement. No immediatecomplications were noted. Total fluoroscopic time utilized was 4.5 minutes, 1 image(s), andreference air kerma 82.8 mGy for this procedure. IMPRESSION: Keofeed tube placed into the second portion of the duodenum. The attending radiologist, Dr. Shyam Vigil MD, was availableduring all critical portions of the procedure, has reviewed the image(s)and agrees with the content of this report. Ordered By: NAYA GONZALEZ Interpreted By: Chucho Crockett MD, 01/25/2025 11:58 AM us Naya Gonzalez MD FLUOROSCOPY Final Result * XR CHEST PORTABLE (01/25/2025 9:53 AM CDT) Anatomical Region Laterality Modality Chest Radiographic Lindsey ging 01/25/2025 10:1 5 AM CDT Impressions 01/25/2025 10:17 AM CDT IMPRESSION: 1. Mild to moderate pulmonary vascular congestion. 2. No focal consolidation or pneumothorax. Referred By: ISAK KAGN Interpreted By: Annette Baker MD, 01/25/2025 10:15 AM Narrative 01/25/2025 10:17 AM CDT [address] [address] PROCEDURE: XR CHEST PORTABLE. 01/25/2025 9:51 AM. TECHNIQUE: A single view of the chest (AP or PA) was performed. HISTORY: Increased secretions. COMPARISON: AP chest radiograph, 01/24/2025. FINDINGS: Support Devices: None. Cardiac Silhouette/Mediastinum/Samantha: The cardiac, mediastinal, and hilar contours are unchanged in appearance. Lungs/Pleural Spaces: Mild pulmonary vascular congestion. No focal consolidation. The pleural spaces are clear. Chest Wall/Diaphragm/Upper Abdomen: The thoracic musculoskeletal structures and the upper abdomen are unchanged in appearance. Median sternotomy wires are present. Procedure Note Annette Baker MD - 01/25/[address] [address] PROCEDURE: XR CHEST PORTABLE. 01/25/2025 9:51 AM. TECHNIQUE: A single view of the chest (AP or PA) was performed. HISTORY: Increased secretions. COMPARISON: AP chest radiograph, 01/24/2025. FINDINGS: Support Devices: None. Cardiac Silhouette/Mediastinum/Samantha: The cardiac, mediastinal, and hilarcontours are unchanged in appearance. Lungs/Pleural Spaces: Mild pulmonary vascular congestion. No focalconsolidation. The pleural spaces are clear. Chest Wall/Diaphragm/Upper Abdomen: The thoracic musculoskeletalstructures and the upper abdomen are unchanged in appearance. Mediansternotomy wires are present. IMPRESSION: 1. Mild to moderate pulmonary vascular congestion. 2. No focal consolidation or pneumothorax. Referred By: ISAK KANG Interpreted By: Annette Baker MD, 01/25/2025 10:15 AM us Naya Gonzalez MD GENERAL IMAGING Final Result * (ABNORMAL) POCT glucose (01/25/2025 9:34 AM CDT) GLUCOSE POC 262(H) 70 - 109 01/25/2025 9:37 AM CDT [facility] 01/25/2025 9:34 AM CDT us Naya Gonzalez MD POCT ORDERABLES - DEVICE Fin al Result [facility] [address] [place] [address], [id number] * (ABNORMAL) POCT glucose (01/25/2025 4:03 AM CDT) GLUCOSE POC 235(H) 70 - 109 01/25/2025 4:06 AM CDT [facility] 01/25/2025 4:03 AM CDT us Naya Gonzalez MD POCT ORDERABLES - DEVICE Fin al Result Performing Organization Address [facility] de Phone Number [facility] [address] [place] [address], [id number] * PHOSPHORUS, INORGANIC PHOSPHATE (01/25/2025 1:44 AM CDT) PHOSPHORUS 3.4 2.5 - 4.9 MG/DL 01/25/2025 2:54 AM CDT [facility] 01/25/2025 1:44 AM CDT Tonia Medrano NP LABORATORY Final Result Performing Organization Address [facility] de Phone Number [facility] [address] [place] [address], [id number] * MAGNESIUM (01/25/2025 1:44 AM CDT) MAGNESIUM 2.5 1.6 - 2.6 MG/DL 01/25/2025 2:54 AM CDT [facility] 01/25/2025 1:44 AM CDT Tnoia Medrano NP LABORATORY Final Result Performing Organization Address [facility] de Phone Number [facility] [address], [place] [id number], [id number] * (ABNORMAL) BASIC METABOLIC PANEL (01/25/2025 1:44 AM CDT) SODIUM S/P/B 136 136 - 145 MMOL/L 01/25/2025 2:54 AM CDT [facility] POTASSIUM S/P/B 3.7 3.5 - 5.1 MMOL/L 01/25/2025 2:54 AM CDT [facility] CHLORIDE S/P/B 101 97 - 115 MMOL/L 01/25/2025 2:54 AM CDT [facility] CO2 27.5 21.0 - 32.0 MMOL/L 01/25/2025 2:54 AM T [facility] GLUCOSE 247(H) 74 - 106 MG/DL 01/25/2025 2:54 AM T [facility] BUN 31(H) 7 - 18 MG/DL 01/25/2025 2:54 AM T [facility] CREATININE S/P/B 1.42(H) 0.70 - 1.30 MG/DL 01/25/2025 2:54 AM CDT [facility] CALCIUM S/P/B 9.8 8.5 - 10.1 MG/DL 01/25/2025 2:54 AM T [facility] ANION GAP 7.5 2.0 - 10.0 MMOL/L 01/25/2025 2:54 AM T [facility] OSMOLALITY (CALC) 297 MOSM/KG 025 2:54 AM T [facility] Comment:REFERENCE RANGE NOT ESTABLISHED GFR ESTIMATE 54(L) >90 ML/MIN/1. 73 M2 01/25/2025 2:54 AM T [facility] GFR NOTES GFR REFERENCE S: 01/25/2025 2:54 AM T [facility] Comment: THE ESTIMATED GFR IS CALCULATED USING THE 2020 CKD-EPI EQUATION. THE FOLLOWING CATEGORIES FOR GRADING RENAL FUNCTION ARE RECOMMENDED BY THE INTERNATIONAL SOCIETY OF NEPHROLOGY (KDIGO 2012 CLINICAL PRACTICE GUIDELINE). G1,NORMAL OR HIGH: >89 ml/min/1.73 m2 G2,MILDLY DECREASED: 60-89 ml/min/1.73 m2 G3A,MILDLY TO MODERATELY DECREASED: 45-59 ml/min/1.73 m2 G3B,MODERATELY TO SEVERELY DECREASED: 30-44 ml/min/1.73 m2 G4,SEVERELY DECREASED: 15-29 ml/min/1.73 m2 G5,KIDNEY FAILURE: <15 ml/min/1.73 m2 01/25/2025 1:44 AM CDT Tonia Medrano NP LABORATORY Final Result [facility] [address] [place] [address], [phone] * (ABNORMAL) CBC W/DIFF AUTOMATED (01/25/2025 1:44 AM CDT) [facility] WBC 9.31 4.00 - 10.80 x10'3/uL 01/25/2025 2:22 AM CDT [facility] RBC 4.67 4.50 - 6.10 x10'6/uL 01/25/2025 2:22 AM CDT [facility] HGB 13.7 12.0 - 16.0 G/DL 01/25/2025 2:22 AM CDT [facility] HCT 41.5 37.0 - 52.0 % 01/25/2025 2:22 AM CDT [facility] MCV 88.9 78.0 - 100.0 FL 01/25/2025 2:22 AM CDT [facility] MCH 29.3 27.0 - 31.0 PG 01/25/2025 2:22 AM CDT [facility] MCHC 33.0 33.0 - 36.0 G/DL 01/25/2025 2:22 AM CDT [facility] RDW 12.8 11.5 - 14.5 % 01/25/2025 2:22 AM CDT [facility] PLT 198 150 - 350 x10'3/uL 01/25/2025 2:22 AM CDT [facility] MPV 9.9 7.4 - 10.4 FL 01/25/2025 2:22 AM CDT [facility] DIFFERENTIAL TYPE AUTOMATED DIFFERENTIAL 01/25/2025 2:22 AM CDT [facility] SEG NEUTROPHILS 77.9 % 2:22 AM CDT [facility] LYMPHOCYTES 9.3 % 01/25/2025 2:22 AM CDT [facility] MONOCYTES 12.1 % 01/25/2025 2:22 AM CDT [facility] EOSINOPHILS 0.0 % 01/25/2025 2:22 AM CDT [facility] BASOPHILS 0.2 % 01/25/2025 2:22 AM CDT [facility] IMMATURE GRANS % 0.5 % 01/26/20 2:22 AM CDT [facility] ABS. NEUTROPHILS 7.24 1.60 - 8.30 x10'3/uL 01/25/2025 2:22 AM CDT [facility] ABS. LYMPHOCYTES 0.87 0.80 - 4.70 x10'3/uL 01/25/2025 2:22 AM CDT [facility] ABS. MONOCYTES 1.13 0.00 - 1.50 x10'3/uL 01/25/2025 2:22 AM CDT [facility] ABS. EOSINOPHILS 0.00 0.00 - 0.40 x10'3/uL 01/25/2025 2:22 AM CDT [facility] ABS. BASOPHILS 0.02 0.00 - 0.20 x10'3/uL 01/25/2025 2:22 AM CDT [facility] ABS. IMMATURE GRANULOCYTES 0.05(H) 0.00 - 0.03 x10'3/uL 01/25/2025 2:22 AM CDT [facility] ABS. NUCLEATED RBC'S 0.00 0.00 - 0.01 x10'3/uL 01/25/2025 2:22 AM CDT [facility] NRBC % 0.0 % 01/25/2025 2:22 AM CDT [facility] 01/25/2025 1:44 AM CDT us Tonia Medrano NP LABORATORY Final Result [facility] [address] [place] [address], [place] [phone] * (ABNORMAL) POCT glucose (01/25/2025 12:42 AM CDT) GLUCOSE POC 277(H) 70 - 109 01/25/2025 12:46 AM CDT [facility] 01/25/2025 12:4 2 AM CDT us Naya Gonzalez MD POCT ORDERABLES - DEVICE Fin al Result Performing Organization Address [facility] Co de Phone Number [facility] [address] [place] [address], [place] [phone] * (ABNORMAL) POCT glucose (01/24/2025 11:46 PM CDT) GLUCOSE POC 238(H) 70 - 109 01/24/2025 11:48 PM CDT [facility] 01/24/2025 11:4 6 PM CDT us Naya Gonzalez MD POCT ORDERABLES - DEVICE Fin al Result Performing Organization Address City/[facility] Co de Phone Number [facility] [address] [place] [address], [place] [phone] * XR CHEST PORTABLE (01/24/2025 8:30 PM CDT) Anatomical Region Laterality Modality Chest Radiographic Lindsey ging 01/24/2025 8:55 PM CDT Impressions 01/24/2025 8:56 PM CDT IMPRESSION:===== 1. NO ACUTE CARDIOPULMONARY FINDINGS. Referred By: ISAK KANG Interpreted By: Jad Erazo MD, 01/24/2025 8:55 PM Narrative 01/24/2025 8:56 PM CDT [facility] [address] [place], [place] [address] EXAMINATION: Chest X-Ray 1 View EXAM DATE/TIME: 01/24/2025 8:21 PM REASON FOR EXAM: FEVER/ COUGH COMPARISON: Chest from 05/12/2018 and 06/15/2022. TECHNIQUE: Single upright frontal projection view of the chest was obtained. FINDINGS: There is no focal infiltrate or consolidative change. Heart size is within normal limits for technique. Pulmonary vasculature is within normal limits for technique. There is no large pleural effusion or pneumothorax. ===== Procedure Note Jad Erazo MD - 01/24/[address] [address] EXAMINATION: Chest X-Ray 1 View EXAM DATE/TIME: 01/24/2025 8:21 PM REASON FOR EXAM: FEVER/ COUGH COMPARISON: Chest from 05/12/2018 and 06/15/2022. TECHNIQUE: Single upright frontal projection view of the chest wasobtained. FINDINGS: There is no focal infiltrate or consolidative change. Heart sizeis within normal limits for technique. Pulmonary vasculature is withinnormal limits for technique. There is no large pleural effusion orpneumothorax. ===== IMPRESSION:===== 1. NO ACUTE CARDIOPULMONARY FINDINGS. Referred By: ISAK KANG Interpreted By: Jad Erazo MD, 01/24/2025 8:55 PM us Christen Paniagua MD GENERAL IMAGING Final Result * (ABNORMAL) POCT glucose (01/24/2025 8:05 PM CDT) GLUCOSE POC 274(H) 70 - 109 01/24/2025 10:31 PM CDT [facility] 01/24/2025 8:05 PM CDT us Naya Gonzalez MD POCT ORDERABLES - DEVICE Fin al Result Performing Organization Address City/[facility]/ZIP Co de Phone Number [facility] [address] [place] [address], [place] [phone] * (ABNORMAL) POCT glucose (01/24/2025 4:23 PM CDT) GLUCOSE POC 256(H) 70 - 109 01/24/2025 4:35 PM CDT [facility] 01/24/2025 4:23 PM CDT Naya Gonzalez MD POCT ORDERABLES - DEVICE Fin al Result Performing Organization Address [facility]/ZIP Co de Phone Number [facility] [address] [place] [address], [place] [phone] * CT HEAD WO CON (01/24/2025 2:57 PM CDT) Anatomical Region Laterality Modality Head Computed Tomogra phy 01/24/2025 3:06 PM CDT Impressions 01/24/2025 3:09 PM CDT IMPRESSION: No CT evidence of an acute intracranial abnormality. Ordered By: ROBIN SHARMA Interpreted By: Romulo Bales MD, 01/24/2025 3:06 PM Narrative 01/24/2025 3:09 PM CDT [facility] [address] [place], [place] [address] Examination: CT HEAD WO CON, 01/24/2025 2:49 PM. Technique: Computed tomographic images of the head were obtained without intravenous contrast. Additional coronal and sagittal reformatted images were generated at a separate workstation. A dose lowering technique was used for this procedure, which may include, but is not limited to, dose reduction technique, automated exposure control, the use of iterative reconstruction, and ALARA (As Low As Reasonably Achievable) / Image Gently techniques. Clinical history: stroke F/U Comparison: CT head 01/20/2025 Findings: There is no acute intracranial hemorrhage. There is no extra-axial fluid collection. Preserved hightower-white matter differentiation. Mild global cerebral volume loss with ex vacuo dilatation of ventricles and cerebral sulci. Moderate appears chronic calcification the cavernous segments the internal carotid arteries bilaterally. Orbital contents appear normal. Mild mucosal thickening involving the ethmoidal air cells and right maxillary sinus. Mastoid air cells are well aerated. Chronic appearing deformity involving the posterior right parietal calvarium, similar to the prior CT head exam from 01/20/2025 Procedure Note Romulo Bales MD - 01/24/[address] [address] Examination: CT HEAD WO CON, 01/24/2025 2:49 PM. Technique: Computed tomographic images of the head were obtained withoutintravenous contrast. Additional coronal and sagittal reformatted imageswere generated at a separate workstation. A dose lowering technique wasused for this procedure, which may include, but is not limited to, dosereduction technique, automated exposure control, the use of iterativereconstruction, and ALARA (As Low As Reasonably Achievable) / Image Gentlytechniques. Clinical history: stroke F/U Comparison: CT head 01/20/2025 Findings: There is no acute intracranial hemorrhage. There is no extra-axial fluidcollection. Preserved hightower-white matter differentiation. Mild globalcerebral volume loss with ex vacuo dilatation of ventricles and cerebralsulci. Moderate appears chronic calcification the cavernous segments theinternal carotid arteries bilaterally. Orbital contents appear normal.Mild mucosal thickening involving the ethmoidal air cells and rightmaxillary sinus. Mastoid air cells are well aerated. Chronic appearingdeformity involving the posterior right parietal calvarium, similar to theprior CT head exam from 01/20/2025 IMPRESSION: No CT evidence of an acute intracranial abnormality. Ordered By: ROBIN SHARMA Interpreted By: Romulo Bales MD, 01/24/2025 3:06 PM Robin Sharma INSTALLATION SERVICE REPRESENTATIVE CT Final Result * (ABNORMAL) POCT glucose (01/24/2025 1:50 PM CDT) GLUCOSE POC 293(H) 70 - 109 01/24/2025 6:13 PM CDT [facility] 01/24/2025 1:50 PM CDT us Naya Gonzalez MD POCT ORDERABLES - DEVICE Fin al Result Performing Organization Address [facility] Co de Phone Number [facility] [address] [place] [address], [place] [phone] * (ABNORMAL) POCT glucose (01/24/2025 10:56 AM CDT) GLUCOSE POC 328(H) 70 - 109 01/24/2025 11:09 AM CDT [facility] 01/24/2025 10:5 6 AM CDT us Naya Gonzalez MD POCT ORDERABLES - DEVICE Fin al Result Performing Organization Address [facility] de Phone Number [facility] [address] [place] [address], [place] [phone] * (ABNORMAL) POCT glucose (01/24/2025 9:45 AM CDT) GLUCOSE POC 356(H) 70 - 109 01/24/2025 6:13 PM CDT [facility] 01/24/2025 9:45 AM CDT us Naya Gonzalez MD POCT ORDERABLES - DEVICE Fin al Result Performing Organization Address [facility] Co de Phone Number [facility] [address] [place] [address], [place] [phone] * PHOSPHORUS, INORGANIC PHOSPHATE (01/24/2025 7:05 AM CDT) PHOSPHORUS 2.5 2.5 - 4.9 MG/DL 01/24/2025 8:01 AM CDT [facility] 01/24/2025 7:05 AM CDT Radha Killian [facility] LABORATORY Final Resul t Performing Organization Address [facility] Co de Phone Number [facility] [address] [place] [address], [place] [phone] * MAGNESIUM (01/24/2025 7:05 AM CDT) MAGNESIUM 2.1 1.6 - 2.6 MG/DL 01/24/2025 8:01 AM CDT [facility] 01/24/2025 7:05 AM CDT Radha Killian [facility] LABORATORY Final Resul t Performing Organization Address [facility] de Phone Number [facility] [address] [place] [address], [place] [phone] * (ABNORMAL) CBC W/DIFF AUTOMATED (01/24/2025 7:05 AM CDT) WBC 10.93(H) 4.00 - 10.80 x10'3/uL 01/24/2025 7:20 AM CDT [facility] RBC 4.93 4.50 - 6.10 x10'6/uL 01/24/2025 7:20 AM CDT [facility] HGB 14.4 12.0 - 16.0 G/DL 01/24/2025 7:20 AM CDT [facility] HCT 42.5 37.0 - 52.0 % 01/24/2025 7:20 AM CDT [facility] MCV 86.2 78.0 - 100.0 FL 01/24/2025 7:20 AM CDT [facility] MCH 29.2 27.0 - 31.0 PG 01/24/2025 7:20 AM CDT [facility] MCHC 33.9 33.0 - 36.0 G/DL 01/24/2025 7:20 AM CDT [facility] RDW 12.6 11.5 - 14.5 % 01/24/2025 7:20 AM CDT [facility] PLT 201 150 - 350 x10'3/uL 01/24/2025 7:20 AM CDT [facility] MPV 9.2 7.4 - 10.4 FL 01/24/2025 7:20 AM CDT [facility] DIFFERENTIAL TYPE AUTOMATED DIFFERENTIAL 01/24/2025 7:20 AM CDT [facility] SEG NEUTROPHILS 80.1 % 7:20 AM CDT [facility] LYMPHOCYTES 7.1 % 01/24/2025 7:20 AM CDT [facility] MONOCYTES 12.1 % 01/24/2025 7:20 AM CDT [facility] EOSINOPHILS 0.0 % 01/24/2025 7:20 AM CDT [facility] BASOPHILS 0.1 % 01/24/2025 7:20 AM CDT [facility] IMMATURE GRANS % 0.6 % 01/25/20 7:20 AM CDT [facility] ABS. NEUTROPHILS 8.75(H) 1.60 - 8.30 x10'3/uL 01/24/2025 7:20 AM CDT [facility] ABS. LYMPHOCYTES 0.78(L) 0.80 - 4.70 x10'3/uL 01/24/2025 7:20 AM CDT [facility] ABS. MONOCYTES 1.32 0.00 - 1.50 x10'3/uL 01/24/2025 7:20 AM CDT [facility] ABS. EOSINOPHILS 0.00 0.00 - 0.40 x10'3/uL 01/24/2025 7:20 AM CDT [facility] ABS. BASOPHILS 0.01 0.00 - 0.20 x10'3/uL 01/24/2025 7:20 AM CDT [facility] ABS. IMMATURE GRANULOCYTES 0.07(H) 0.00 - 0.03 x10'3/uL 01/24/2025 7:20 AM CDT [facility] ABS. NUCLEATED RBC'S 0.00 0.00 - 0.01 x10'3/uL 01/24/2025 7:20 AM CDT [facility] NRBC % 0.0 % 01/24/2025 7:20 AM CDT [facility] 01/24/2025 7:05 AM CDT Radha Killian CREDIT AND COLLECTION MANAGER LABORATORY Final Resul t Performing Organization Address City/[facility]/ZIP Co de Phone Number [facility] [address] [place] [address], [phone] * (ABNORMAL) POCT glucose (01/24/2025 4:25 AM CDT) GLUCOSE POC 212(H) 70 - 109 01/24/2025 4:27 AM CDT [facility] 01/24/2025 4:25 AM CDT Emiliano Donaldson MD POCT ORDERABLES - DEVICE Final Result Performing Organization Address City/[facility] Co de Phone Number [facility] [address] [place] [address], [phone] * (ABNORMAL) BASIC METABOLIC PANEL (01/24/2025 1:26 AM CDT) SODIUM S/P/B 136 136 - 145 MMOL/L 01/24/2025 2:06 AM T [facility] POTASSIUM S/P/B 3.7 3.5 - 5.1 MMOL/L 01/24/2025 2:06 AM T [facility] CHLORIDE S/P/B 100 97 - 115 MMOL/L 01/24/2025 2:06 AM [facility] CO2 26.9 21.0 - 32.0 MMOL/L 01/24/2025 2:06 AM [facility] GLUCOSE 323(H) 74 - 106 MG/DL 01/24/2025 2:06 AM [facility] BUN 16 7 - 18 MG/DL 01/24/2025 2:06 AM [facility] CREATININE S/P/B 1.14 0.70 - 1.30 MG/DL 01/24/2025 2:06 AM [facility] CALCIUM S/P/B 9.5 8.5 - 10.1 MG/DL 01/24/2025 2:06 AM [facility] ANION GAP 9.1 2.0 - 10.0 MMOL/L 01/24/2025 2:06 AM [facility] OSMOLALITY (CALC) 296 MOSM/KG 025 2:06 AM [facility] Comment:REFERENCE RANGE NOT ESTABLISHED GFR ESTIMATE 70(L) >90 ML/MIN/1. 73 M2 01/24/2025 2:06 AM [facility] GFR NOTES GFR REFERENCE S: 01/24/2025 2:06 AM [facility] Comment: THE ESTIMATED GFR IS CALCULATED USING THE 2020 CKD-EPI EQUATION. THE FOLLOWING CATEGORIES FOR GRADING RENAL FUNCTION ARE RECOMMENDED BY THE INTERNATIONAL SOCIETY OF NEPHROLOGY (KDIGO 2012 CLINICAL PRACTICE GUIDELINE). G1,NORMAL OR HIGH: >89 ml/min/1.73 m2 G2,MILDLY DECREASED: 60-89 ml/min/1.73 m2 G3A,MILDLY TO MODERATELY DECREASED: 45-59 ml/min/1.73 m2 G3B,MODERATELY TO SEVERELY DECREASED: 30-44 ml/min/1.73 m2 G4,SEVERELY DECREASED: 15-29 ml/min/1.73 m2 G5,KIDNEY FAILURE: <15 ml/min/1.73 m2 01/24/2025 1:26 AM CDT Madina Ortega Breezy INSTALLATION SERVICE REPRESENTATIVE LABORATORY Final Result Performing Organization Address [facility] Co de Phone Number [facility] [address] [place] [address], [phone] * (ABNORMAL) POCT glucose (01/24/2025 12:27 AM CDT) GLUCOSE POC 452(H) 70 - 109 01/24/2025 12:41 AM CDT [facility] 01/24/2025 12:2 7 AM CDT Emiliano Donaldson MD POCT ORDERABLES - DEVICE Final Result Performing Organization Address [facility] de Phone Number [facility] [address] [place] [address], [phone] * (ABNORMAL) POCT glucose (01/23/2025 5:51 PM CDT) GLUCOSE POC 337(H) 70 - 109 01/23/2025 5:54 PM CDT [facility] 01/23/2025 5:51 PM CDT Emiliano Donaldson MD POCT ORDERABLES - DEVICE Final Result Performing Organization Address [facility] de Phone Number [facility] [address] [place] [address], [place] [phone] * (ABNORMAL) POCT glucose (01/23/2025 12:48 PM CDT) GLUCOSE POC 287(H) 70 - 109 01/23/2025 12:58 PM CDT [facility] 01/23/2025 12:4 8 PM CDT Emiliano Donaldson MD POCT ORDERABLES - DEVICE Final Result Performing Organization Address [facility] de Phone Number [facility] [address] [place] [address], [phone] * PHOSPHORUS, INORGANIC PHOSPHATE (01/23/2025 8:39 AM CDT) PHOSPHORUS 2.6 2.5 - 4.9 MG/DL 01/23/2025 9:37 AM CDT [facility] 01/23/2025 8:39 AM CDT Radha Killian [facility] LABOR[facility]ORY Final Resul t Performing Organization Address [facility] de Phone Number [facility] [address] [place] [address], [place] [phone] * MAGNESIUM (01/23/2025 8:39 AM CDT) MAGNESIUM 1.8 1.6 - 2.6 MG/DL 01/23/2025 9:37 AM CDT [facility] 01/23/2025 8:39 AM CDT Radha Killian [facility] LABORATORY Final Resul t Performing Organization Address [facility] de Phone Number [facility] [address] [place] [address], [phone] * (ABNORMAL) BASIC METABOLIC PANEL (01/23/2025 8:39 AM CDT) SODIUM S/P/B 134(L) 136 - 145 MMOL/L 01/23/2025 9:37 AM [facility] POTASSIUM S/P/B 3.7 3.5 - 5.1 MMOL/L 01/23/2025 9:37 AM [facility] CHLORIDE S/P/B 99 97 - 115 MMOL/L 01/23/2025 9:37 AM [facility] CO2 25.4 21.0 - 32.0 MMOL/L 01/23/2025 9:37 AM [facility] GLUCOSE 302(H) 74 - 106 MG/DL 01/23/2025 9:37 AM [facility] BUN 13 7 - 18 MG/DL 01/23/2025 9:37 AM [facility] CREATININE S/P/B 1.16 0.70 - 1.30 MG/DL 01/23/2025 9:37 AM [facility] CALCIUM S/P/B 9.2 8.5 - 10.1 MG/DL 01/23/2025 9:37 AM [facility] ANION GAP 9.6 2.0 - 10.0 MMOL/L 01/23/2025 9:37 AM [facility] OSMOLALITY (CALC) 289 MOSM/KG 025 9:37 AM [facility] Comment:REFERENCE RANGE NOT ESTABLISHED GFR ESTIMATE 69(L) >90 ML/MIN/1. 73 M2 01/23/2025 9:37 AM [facility] GFR NOTES GFR REFERENCE S: 01/23/2025 9:37 AM [facility] Comment: THE ESTIMATED GFR IS CALCULATED USING THE 2020 CKD-EPI EQUATION. THE FOLLOWING CATEGORIES FOR GRADING RENAL FUNCTION ARE RECOMMENDED BY THE INTERNATIONAL SOCIETY OF NEPHROLOGY (KDIGO 2012 CLINICAL PRACTICE GUIDELINE). G1,NORMAL OR HIGH: >89 ml/min/1.73 m2 G2,MILDLY DECREASED: 60-89 ml/min/1.73 m2 G3A,MILDLY TO MODERATELY DECREASED: 45-59 ml/min/1.73 m2 G3B,MODERATELY TO SEVERELY DECREASED: 30-44 ml/min/1.73 m2 G4,SEVERELY DECREASED: 15-29 ml/min/1.73 m2 G5,KIDNEY FAILURE: <15 ml/min/1.73 m2 01/23/2025 8:39 AM CDT us Radha Killian CREDIT AND COLLECTION MANAGER LABORATORY Final Resul t [facility] [address] [place] [address], [phone] * CBC W/DIFF AUTOMATED (01/23/2025 8:39 AM CDT) WBC 7.95 4.00 - 10.80 x10'3/uL 01/23/2025 9:05 AM CDT [facility] RBC 4.75 4.50 - 6.10 x10'6/uL 01/23/2025 9:05 AM CDT [facility] HGB 13.9 12.0 - 16.0 G/DL 01/23/2025 9:05 AM CDT [facility] HCT 40.8 37.0 - 52.0 % 01/23/2025 9:05 AM CDT [facility] MCV 85.9 78.0 - 100.0 FL 01/23/2025 9:05 AM CDT [facility] MCH 29.3 27.0 - 31.0 PG 01/23/2025 9:05 AM CDT [facility] MCHC 34.1 33.0 - 36.0 G/DL 01/23/2025 9:05 AM CDT [facility] RDW 12.2 11.5 - 14.5 % 01/23/2025 9:05 AM CDT [facility] PLT 217 150 - 350 x10'3/uL 01/23/2025 9:05 AM CDT [facility] MPV 9.5 7.4 - 10.4 FL 01/23/2025 9:05 AM [facility] DIFFERENTIAL TYPE AUTOMATED DIFFERENTIAL 01/23/2025 9:05 AM T [facility] SEG NEUTROPHILS 76.4 % 9:05 AM [facility] LYMPHOCYTES 11.1 % 01/23/2025 9:05 AM [facility] MONOCYTES 11.7 % 01/23/2025 9:05 AM T [facility] EOSINOPHILS 0.1 % 01/23/2025 9:05 AM T [facility] BASOPHILS 0.3 % 01/23/2025 9:05 AM T [facility] IMMATURE GRANS % 0.4 % 01/24/20 9:05 AM [facility] ABS. NEUTROPHILS 6.08 1.60 - 8.30 x10'3/uL 01/23/2025 9:05 AM T [facility] ABS. LYMPHOCYTES 0.88 0.80 - 4.70 x10'3/uL 01/23/2025 9:05 AM T [facility] ABS. MONOCYTES 0.93 0.00 - 1.50 x10'3/uL 01/23/2025 9:05 AM [facility] ABS. EOSINOPHILS 0.01 0.00 - 0.40 x10'3/uL 01/23/2025 9:05 AM [facility] ABS. BASOPHILS 0.02 0.00 - 0.20 x10'3/uL 01/23/2025 9:05 AM [facility] ABS. IMMATURE GRANULOCYTES 0.03 0.00 - 0.03 x10'3/uL 01/23/2025 9:05 AM [facility] ABS. NUCLEATED RBC'S 0.00 0.00 - 0.01 x10'3/uL 01/23/2025 9:05 AM T [facility] NRBC % 0.0 % 01/23/2025 9:05 AM [facility] 01/23/2025 8:39 AM CDT Radha Killian [employer] LABORATORY Final Resul t Performing Organization Address [facility] Co de Phone Number [facility] [address] [place] [address], [place] [phone] * (ABNORMAL) POCT glucose (01/23/2025 6:16 AM CDT) GLUCOSE POC 267(H) 70 - 109 01/23/2025 6:18 AM CDT [facility] 01/23/2025 6:16 AM CDT us Emiliano Donaldson MD POCT ORDERABLES - DEVICE Final Result Performing Organization Address [facility] de Phone Number [facility] [address] [place] [address], [place] [phone] * (ABNORMAL) POCT glucose (01/22/2025 11:31 PM CDT) GLUCOSE POC 237(H) 70 - 109 01/23/2025 12:38 AM CDT [facility] 01/22/2025 11:3 1 PM CDT Emiliano Donaldson MD POCT ORDERABLES - DEVICE Final Result Performing Organization Address [facility] de Phone Number [facility] [address] [place] [address], [place] [phone] * (ABNORMAL) POCT glucose (01/22/2025 9:22 PM CDT) GLUCOSE POC 234(H) 70 - 109 01/22/2025 9:24 PM CDT [facility] 01/22/2025 9:22 PM CDT us Emiliano Donaldson MD POCT ORDERABLES - DEVICE Final Result Performing Organization Address [facility] Co de Phone Number [facility] [address] [place] [address], [place] [phone] * (ABNORMAL) POCT glucose (01/22/2025 4:29 PM CDT) GLUCOSE POC 270(H) 70 - 109 01/22/2025 4:43 PM CDT [facility] 01/22/2025 4:29 PM CDT us Emiliano Donaldson MD POCT ORDERABLES - DEVICE Final Result Performing Organization Address [facility] de Phone Number [facility] [address] [place] [address], [place] [phone] * (ABNORMAL) POCT glucose (01/22/2025 10:54 AM CDT) GLUCOSE POC 247(H) 70 - 109 01/22/2025 11:15 AM CDT [facility] 01/22/2025 10:5 4 AM CDT us Emiliano Donaldson MD POCT ORDERABLES - DEVICE Final Result Performing Organization Address [facility] de Phone Number [facility] [address] [place] [address], [place] [phone] * (ABNORMAL) POCT glucose (01/22/2025 6:14 AM CDT) GLUCOSE POC 243(H) 70 - 109 01/22/2025 6:29 AM CDT [facility] 01/22/2025 6:14 AM CDT us Sandra Ray DO POCT ORDERABLES - DEVICE Fi nal Result Performing Organization Address [facility] Co de Phone Number [facility] [address] [place] [address], [phone] * PHOSPHORUS, INORGANIC PHOSPHATE (01/22/2025 6:11 AM CDT) PHOSPHORUS 2.5 2.5 - 4.9 MG/DL 01/22/2025 6:52 AM CDT [facility] 01/22/2025 6:11 AM CDT Radha Killian [facility] Final Resul t Performing Organization Address [facility] de Phone Number [facility] [address] [place] [address], [phone] * MAGNESIUM (01/22/2025 6:11 AM CDT) MAGNESIUM 1.7 1.6 - 2.6 MG/DL 01/22/2025 6:52 AM CDT [facility] 01/22/2025 6:11 AM CDT Radha Killian [facility] Final Resul t Performing Organization Address [facility] Co de Phone Number [facility] [address] [place] [address], [place] [phone] * (ABNORMAL) BASIC METABOLIC PANEL (01/22/2025 6:11 AM CDT) SODIUM S/P/B 136 136 - 145 MMOL/L 01/22/2025 6:52 AM CDT [facility] POTASSIUM S/P/B 3.9 3.5 - 5.1 MMOL/L 01/22/2025 6:52 AM CDT [facility] CHLORIDE S/P/B 104 97 - 115 MMOL/L 01/22/2025 6:52 AM CDT [facility] CO2 22.8 21.0 - 32.0 MMOL/L 01/22/2025 6:52 AM CDT [facility] GLUCOSE 234(H) 74 - 106 MG/DL 01/22/2025 6:52 AM CDT [facility] BUN 13 7 - 18 MG/DL 01/22/2025 6:52 AM CDT [facility] CREATININE S/P/B 1.14 0.70 - 1.30 MG/DL 01/22/2025 6:52 AM CDT [facility] CALCIUM S/P/B 9.1 8.5 - 10.1 MG/DL 01/22/2025 6:52 AM T [facility] ANION GAP 9.2 2.0 - 10.0 MMOL/L 01/22/2025 6:52 AM T [facility] OSMOLALITY (CALC) 290 MOSM/KG 025 6:52 AM T [facility] Comment:REFERENCE RANGE NOT ESTABLISHED GFR ESTIMATE 70(L) >90 ML/MIN/1. 73 M2 01/22/2025 6:52 AM T [facility] GFR NOTES GFR REFERENCE S: 01/22/2025 6:52 AM T [facility] Comment: THE ESTIMATED GFR IS CALCULATED USING THE 2020 CKD-EPI EQUATION. THE FOLLOWING CATEGORIES FOR GRADING RENAL FUNCTION ARE RECOMMENDED BY THE INTERNATIONAL SOCIETY OF NEPHROLOGY (KDIGO 2012 CLINICAL PRACTICE GUIDELINE). G1,NORMAL OR HIGH: >89 ml/min/1.73 m2 G2,MILDLY DECREASED: 60-89 ml/min/1.73 m2 G3A,MILDLY TO MODERATELY DECREASED: 45-59 ml/min/1.73 m2 G3B,MODERATELY TO SEVERELY DECREASED: 30-44 ml/min/1.73 m2 G4,SEVERELY DECREASED: 15-29 ml/min/1.73 m2 G5,KIDNEY FAILURE: <15 ml/min/1.73 m2 01/22/2025 6:11 AM CDT Radha Killian [employer] LABORATORY Final Resul t [facility] [address] [place] [address], [id number] * CBC W/DIFF AUTOMATED (01/22/2025 6:11 AM CDT) WBC 4.67 4.00 - 10.80 x10'3/uL 01/22/2025 6:29 AM CDT [facility] RBC 4.59 4.50 - 6.10 x10'6/uL 01/22/2025 6:29 AM CDT [facility] HGB 13.6 12.0 - 16.0 G/DL 01/22/2025 6:29 AM CDT [facility] HCT 41.1 37.0 - 52.0 % 01/22/2025 6:29 AM CDT [facility] MCV 89.5 78.0 - 100.0 FL 01/22/2025 6:29 AM CDT [facility] MCH 29.6 27.0 - 31.0 PG 01/22/2025 6:29 AM CDT [facility] MCHC 33.1 33.0 - 36.0 G/DL 01/22/2025 6:29 AM CDT [facility] RDW 12.3 11.5 - 14.5 % 01/22/2025 6:29 AM CDT [facility] PLT 179 150 - 350 x10'3/uL 01/22/2025 6:29 AM CDT [facility] MPV 9.4 7.4 - 10.4 FL 01/22/2025 6:29 AM CDT [facility] DIFFERENTIAL TYPE AUTOMATED DIFFERENTIAL 01/22/2025 6:29 AM CDT [facility] SEG NEUTROPHILS 57.9 % 6:29 AM CDT [facility] LYMPHOCYTES 27.4 % 01/22/2025 6:29 AM CDT [facility] MONOCYTES 12.2 % 01/22/2025 6:29 AM CDT [facility] EOSINOPHILS 1.9 % 01/22/2025 6:29 AM CDT [facility] BASOPHILS 0.4 % 01/22/2025 6:29 AM CDT [facility] IMMATURE GRANS % 0.2 % 01/23/20 6:29 AM CDT [facility] ABS. NEUTROPHILS 2.70 1.60 - 8.30 x10'3/uL 01/22/2025 6:29 AM CDT [facility] ABS. LYMPHOCYTES 1.28 0.80 - 4.70 x10'3/uL 01/22/2025 6:29 AM CDT [facility] ABS. MONOCYTES 0.57 0.00 - 1.50 x10'3/uL 01/22/2025 6:29 AM CDT [facility] ABS. EOSINOPHILS 0.09 0.00 - 0.40 x10'3/uL 01/22/2025 6:29 AM CDT [facility] ABS. BASOPHILS 0.02 0.00 - 0.20 x10'3/uL 01/22/2025 6:29 AM CDT [facility] ABS. IMMATURE GRANULOCYTES 0.01 0.00 - 0.03 x10'3/uL 01/22/2025 6:29 AM CDT [facility] ABS. NUCLEATED RBC'S 0.00 0.00 - 0.01 x10'3/uL 01/22/2025 6:29 AM CDT [facility] NRBC % 0.0 % 01/22/2025 6:29 AM CDT [facility] 01/22/2025 6:11 AM CDT us Radha Killian [employer]LE[employer] MANAGER LABORATORY Final Resul t [facility] [address] [place] [address], [place] [phone] * (ABNORMAL) POCT glucose (01/21/2025 6:14 PM CDT) GLUCOSE POC 202(H) 70 - 109 01/21/2025 6:15 PM CDT [facility] 01/21/2025 6:14 PM CDT us Sandra Ray DO POCT ORDERABLES - DEVICE Fi nal Result [facility] [address] [place] [address], [place] [phone] * XR FEEDING TUBE PLCMENT (01/21/2025 2:55 PM CDT) Anatomical Region Laterality Modality NA Fluoroscopy 01/21/2025 2:55 PM CDT Impressions 01/22/2025 11:20 AM CDT IMPRESSION: Successful postpyloric Chu fed placement. The attending radiologist was present in the department for all critical portions of the examination, has reviewed the images, and agrees with the resident's interpretation. Dictated By: Gilma Livingston MD on 01/21/2025 2:55 PM The attending radiologist has reviewed the image(s) and agrees with the content of this report. Referred By: ISAK KANG Interpreted By: Gilma Livingston MD, 01/21/2025 2:55 PM Narrative 01/22/2025 11:20 AM CDT [address] [address] [facility] [address] [place], [place] [address] EXAM: Nasoenteric tube placement. COMPARISONS: 01/20/2025 CT head, 01/19/2025 CT chest/abdomen/pelvis EXAM TIME:01/21/2025 2:23 PM EXAM HISTORY: Acute stroke, inability to swallow. TECHNIQUE: Informed consent was obtained prior to the patient arriving in the radiology department. Under fluoroscopic guidance, a Keofeed nasoenteric feeding tube was advanced through the right nare, down the esophagus, through the gastroesophageal junction, into the stomach, and through the pylorus. Air contrast was used to confirm the placement in the duodenum. A nasal bridle was attempted but unable to be secured due to a combination of septal deviation and patient intolerance for the procedure. A nasal coverlet was then placed to secure the Keofed tube. The tube was flushed with a small amount of water to confirm patency after coverlet placement. No immediate complications were noted. The patient left the department in stable condition. Total fluoroscopic time utilized was 4.5 minutes and reference air kerma 82.8 mGy for this procedure. Procedure Note Bryan Vogel MD - 01/22/[address] [address] EXAM: Nasoenteric tube placement. COMPARISONS: 01/20/2025 CT head, 01/19/2025 CT chest/abdomen/pelvis EXAM TIME:01/21/2025 2:23 PM EXAM HISTORY: Acute stroke, inability to swallow. TECHNIQUE: Informed consent was obtained prior to the patient arriving int radiology department. Under fluoroscopic guidance, a Keofeednasoenteric feeding tube was advanced through the right nare, down theesophagus, through the gastroesophageal junction, into the stomach, andthrough the pylorus. Air contrast was used to confirm the placement in theduodenum. A nasal bridle was attempted but unable to be secured due to acombination of septal deviation and patient intolerance for the procedure.A nasal coverlet was then placed to secure the Keofed tube. The tube wasflushed with a small amount of water to confirm patency after coverletplacement. No immediate complications were noted. [facility]. Total fluoroscopic time utilized was 4.5 minutes and reference air kerma82.8 mGy for this procedure. IMPRESSION: Successful postpyloric [place] fed placement. The attending radiologist was present in the department for all criticalportions of the examination, has reviewed the images, and agrees with theresident's interpretation. Dictated By: Gilma Livingston MD on 01/21/2025 2:55 PM The attending radiologist has reviewed the image(s) and agrees with thecontent of this report. Referred By: ISAK KANG Interpreted By: Gilma Livingston MD, 01/21/2025 2:55 PM Dennys Downs APNP FLUOROSCOPY Final Result * (ABNORMAL) POCT glucose (01/21/2025 1:49 PM CDT) GLUCOSE POC 228(H) 70 - 109 01/21/2025 1:51 PM CDT [facility] 01/21/2025 1:49 PM CDT Sandra Ray DO POCT ORDERABLES - DEVICE Fi nal Result [facility] [address] [place] [address], [id number] * USE ECHOCARDIOGRAM (01/21/2025 12:22 PM CDT) Anatomical Region Laterality Modality Cardiac Echocardiogram 01/21/2025 10:2 9 AM CDT Narrative 01/21/2025 1:37 PM CDT Echocardiography Report Pat.Name: ОЛЕГ WATSON Pat.ID: [id number] .Date: 01/21/2025 Refer.: [id number] [facility] EWDPROV EWDPROV Exam Time: 10:29:00 AM Study Type:ECHO WITH CARDIAC DOPPLER COMP Height: 71 in Weight: 206 lb BSA: 2.14 m2 Age: 6 1955,69Y Sex: M BP: 128/74 HR: 70 bpm Sonogrphr: Wil Avila RDCS, RVT Pat. Stat.:Inpatient CPT - 4: 46882 Reason for Study:Stroke/TIA Procedures: 2D, M-mode, Doppler, Color Flow, The study quality is technically adequate. Intraveneous saline contrast was used to help determine presence of intracardiac shunting. Race: W ++++++++++++++++++++++++++++++++++++ SUMMARY: ++++++++++++++++++++++++++++++++++++ The left ventricular size is normal. The left ventricular systolic function is normal. The calculated ejection fraction is 63%. The right ventricle size is normal. The right ventricular function is normal. The left atrial volume is normal ( less than 34 ml/M2). Right atrial size is normal. The agitated saline injection showed no clear evidence of shunting into the left atrium, consistent with no patent foramen ovale. Normal aortic root. Pulmonary vein velocity is consistent with normal left atrial pressures. Inferior vena cava shows >50% collapse with respiration consistent with normal right atrial pressure. The aortic valve is trileaflet. Structurally normal mitral valve. Trace mitral regurgitation. There is trace pulmonic regurgitation Structurally normal tricuspid valve. ++++++++++++++++++++++++++++++++++++ FINDINGS: ++++++++++++++++++++++++++++++++++++ LV: The left ventricular size is normal. The left ventricular systolic function is normal. The calculated ejection fraction is 63%. The average E/e' is elevated at >12 and EF > or equal to 50. RV: The right ventricle size is normal. The right ventricular function is normal. LA: The left atrial volume is normal ( less than 34 ml/M2). RA: Right atrial size is normal. IAS: The agitated saline injection showed no clear evidence of shunting into the left atrium, consistent with no patent foramen ovale. AMANDA: No evidence of pericardial effusion. AO: Normal aortic root. PA: Unable to reliably quantitate pulmonary systolic pressure. PVn: Pulmonary vein velocity is consistent with normal left atrial pressures. SVn: Inferior vena cava is normal. Inferior vena cava shows >50% collapse with respiration consistent with normal right atrial pressure. AV: The aortic valve is trileaflet. No evidence of aortic valve stenosis. No evidence of aortic valve regurgitation. MV: Structurally normal mitral valve. Trace mitral regurgitation. No evidence of mitral stenosis. PV: The pulmonic valve is normal There is trace pulmonic regurgitation TV: Structurally normal tricuspid valve. A trace of tricuspid regurgitation. No evidence of tricuspid valve stenosis. ++++++++++++++++++++++++++++++++++++ MEASUREMENTS: ++++++++++++++++++++++++++++++++++++ DOPPLER LVOT LVOTpkPG 7.4 mmHg LVOTmnPG 4.6 mmHg LVOTpkVel 136 cm/s (70-110)* LVOT SV 99 ml LVOT TVI 31.2 cm AV Forward Flow AV TVI 31.8 cm AV pkPG 9 mmHg AV pkVel 150 cm/s (100-170) Area (TVI) 3.11 cm2 (3-5) AV mnVel 118 cm/s Area (Quentin) 2.87 cm2 (3-5)* AV mnPG 6 mmHg MV Forward Flow MV DeTm 135 msec MV pkE 85.9 cm/s (60-130) MV E/A 0.8 MV pkA 104 cm/s PV Forward Flow PV pkVel 69 cm/s (60-90) PV pkPG 2 mmHg Lat E' Lat e 6.31 cm/s Lat E/E' Lat E/e 13.6 Med E' Med e 8.16 cm/s Med E/E' Med E/e 10.5 Aortic Valve Aortic Valve Ar 1.45 Aortic Valve Ve 0.91 AV DI Value 1 EDWIN (VTI) Index Value 1.45 LV Mass 2D Value 117 g LV Mass [id number] Value 54.7 g/m2 2D Left Ventricle LVIDd 3.62 cm (3.6-5.2) LV EF(Bi-Plane) 63 % (63-77) LVPW LVPWd 0.9 cm Ventricular Septum IVSd 1.2 cm Left Atrium LA a-p 2.7 cm (2.8-3.4)* Aorta Ao Rtd 2.7 cm (zsc -0.7) Ao Asc 2.9 cm (zsc 1) LVOT LVOT 2.01 cm Ratios IVS LA Biplane LAVol I BP 15.9 ml/m2 MMODE TA Tricuspid Annul 3.21 cm <Electronic Signature> 01/21/2025 01:37 PM Wil Rogers M.D. Procedure Note Wil Rogers MD - 01/21/2025 Echocardiography Report Pat.Name: ОЛЕГ WATSON Pat.ID: [id number] St.Date: 01/21/2025 Refer.: [id number] [facility] EWDPROV EWDPROV Exam Time: 10:29:00 AM Study Type:ECHO WITH CARDIAC DOPPLER COMP Height: 71 in Weight: 206 lb BSA: 2.14 m2 Age: 6 1955,69Y Sex: M BP: 128/74 HR: 70 bpm Sonogrphr: Wil Avila RDCS, RVT Pat. Stat.:Inpatient CPT - 4: 10467 Reason for Study:Stroke/TIA Procedures: 2D, M-mode, Doppler, Color Flow, The study quality is technically adequate. Intraveneous saline contrast was used to help determine presence of intracardiac shunting. Race: W ++++++++++++++++++++++++++++++++++++ SUMMARY: ++++++++++++++++++++++++++++++++++++ The left ventricular size is normal. The left ventricular systolic function is normal. The calculated ejection fraction is 63%. The right ventricle size is normal. The right ventricular function is normal. The left atrial volume is normal ( less than 34 ml/M2). Right atrial size is normal. The agitated saline injection showed no clear evidence of shunting into the left atrium, consistent with no patent foramen ovale. Normal aortic root. Pulmonary vein velocity is consistent with normal left atrial pressures. Inferior vena cava shows >50% collapse with respiration consistent with normal right atrial pressure. The aortic valve is trileaflet. Structurally normal mitral valve. Trace mitral regurgitation. There is trace pulmonic regurgitation Structurally normal tricuspid valve. ++++++++++++++++++++++++++++++++++++ FINDINGS: ++++++++++++++++++++++++++++++++++++ LV: The left ventricular size is normal. The left ventricular systolic function is normal. The calculated ejection fraction is 63%. The average E/e' is elevated at >12 and EF > or equal to 50. RV: The right ventricle size is normal. The right ventricular function is normal. LA: The left atrial volume is normal ( less than 34 ml/M2). RA: Right atrial size is normal. IAS: The agitated saline injection showed no clear evidence of shunting into the left atrium, consistent with no patent foramen ovale. AMANDA: No evidence of pericardial effusion. AO: Normal aortic root. PA: Unable to reliably quantitate pulmonary systolic pressure. PVn: Pulmonary vein velocity is consistent with normal left atrial pressures. SVn: Inferior vena cava is normal. Inferior vena cava shows >50% collapse with respiration consistent with normal right atrial pressure. AV: The aortic valve is trileaflet. No evidence of aortic valve stenosis. No evidence of aortic valve regurgitation. MV: Structurally normal mitral valve. Trace mitral regurgitation. No evidence of mitral stenosis. PV: The pulmonic valve is normal There is trace pulmonic regurgitation TV: Structurally normal tricuspid valve. A trace of tricuspid regurgitation. No evidence of tricuspid valve stenosis. ++++++++++++++++++++++++++++++++++++ MEASUREMENTS: ++++++++++++++++++++++++++++++++++++ DOPPLER LVOT LVOTpkPG 7.4 mmHg LVOTmnPG 4.6 mmHg LVOTpkVel 136 cm/s (70-110)* LVOT SV 99 ml LVOT TVI 31.2 cm AV Forward Flow AV TVI 31.8 cm AV pkPG 9 mmHg AV pkVel 150 cm/s (100-170) Area (TVI) 3.11 cm2 (3-5) AV mnVel 118 cm/s Area (Quentin) 2.87 cm2 (3-5)* AV mnPG 6 mmHg MV Forward Flow MV DeTm 135 msec MV pkE 85.9 cm/s (60-130) MV E/A 0.8 MV pkA 104 cm/s PV Forward Flow PV pkVel 69 cm/s (60-90) PV pkPG 2 mmHg Lat E' Lat e 6.31 cm/s Lat E/E' Lat E/e 13.6 Med E' Med e 8.16 cm/s Med E/E' Med E/e 10.5 Aortic Valve Aortic Valve Ar 1.45 Aortic Valve Ve 0.91 AV DI Value 1 EDWIN (VTI) Index Value 1.45 LV Mass 2D Value 117 g LV Mass [id number] Value 54.7 g/m2 2D Left Ventricle LVIDd 3.62 cm (3.6-5.2) LV EF(Bi-Plane) 63 % (63-77) LVPW LVPWd 0.9 cm Ventricular Septum IVSd 1.2 cm Left Atrium LA a-p 2.7 cm (2.8-3.4)* Aorta Ao Rtd 2.7 cm (zsc -0.7) Ao Asc 2.9 cm (zsc 1) LVOT LVOT 2.01 cm Ratios IVS LA Biplane LAVol I BP 15.9 ml/m2 MMODE TA Tricuspid Annul 3.21 cm <Electronic Signature> 01/21/2025 01:37 PM Wil Rogers M.D. Renee Hannon PA-C ECHO Final Resul t * (ABNORMAL) POCT glucose (01/21/2025 5:44 AM CDT) GLUCOSE POC 253(H) 70 - 109 01/21/2025 6:59 AM CDT [facility] 01/21/2025 5:44 AM CDT Sandra Ray DO POCT ORDERABLES - DEVICE Fi nal Result [facility] [address] [place] [address], [place] [phone] * PHOSPHORUS, INORGANIC PHOSPHATE (01/21/2025 3:40 AM CDT) PHOSPHORUS 2.8 2.5 - 4.9 MG/DL 01/21/2025 4:25 AM CDT [facility] 01/21/2025 3:40 AM CDT Renee PICHARDO-C LABORATORY Final Resul t Performing Organization Address [facility]/ZIP Co de Phone Number [facility] [address] [place] [address], [place] [phone] * MAGNESIUM (01/21/2025 3:40 AM CDT) MAGNESIUM 1.6 1.6 - 2.6 MG/DL 01/21/2025 4:25 AM CDT [facility] 01/21/2025 3:40 AM CDT Renee PICHARDO-C LABORATORY Final Resul t Performing Organization Address [facility]/ZIP Co de Phone Number [facility] [address] [place] [address], [place] [phone] * (ABNORMAL) BASIC METABOLIC PANEL (01/21/2025 3:40 AM CDT) SODIUM S/P/B 138 136 - 145 MMOL/L 01/21/2025 4:25 AM CDT [facility] POTASSIUM S/P/B 4.1 3.5 - 5.1 MMOL/L 01/21/2025 4:25 AM CDT [facility] CHLORIDE S/P/B 106 97 - 115 MMOL/L 01/21/2025 4:25 AM CDT [facility] CO2 24.2 21.0 - 32.0 MMOL/L 01/21/2025 4:25 AM CDT [facility] GLUCOSE 241(H) 74 - 106 MG/DL 01/21/2025 4:25 AM CDT [facility] BUN 14 7 - 18 MG/DL 01/21/2025 4:25 AM CDT [facility] CREATININE S/P/B 1.29 0.70 - 1.30 MG/DL 01/21/2025 4:25 AM CDT [facility] CALCIUM S/P/B 9.1 8.5 - 10.1 MG/DL 01/21/2025 4:25 AM CDT [facility] ANION GAP 7.8 2.0 - 10.0 MMOL/L 01/21/2025 4:25 AM CDT [facility] OSMOLALITY (CALC) 294 MOSM/KG 025 4:25 AM CDT [facility] Comment:REFERENCE RANGE NOT ESTABLISHED GFR ESTIMATE 60(L) >90 ML/MIN/1. 73 M2 01/21/2025 4:25 AM CDT [facility] GFR NOTES GFR REFERENCE S: 01/21/2025 4:25 AM CDT [facility] Comment: THE ESTIMATED GFR IS CALCULATED USING THE 2020 CKD-EPI EQUATION. THE FOLLOWING CATEGORIES FOR GRADING RENAL FUNCTION ARE RECOMMENDED BY THE INTERNATIONAL SOCIETY OF NEPHROLOGY (KDIGO 2012 CLINICAL PRACTICE GUIDELINE). G1,NORMAL OR HIGH: >89 ml/min/1.73 m2 G2,MILDLY DECREASED: 60-89 ml/min/1.73 m2 G3A,MILDLY TO MODERATELY DECREASED: 45-59 ml/min/1.73 m2 G3B,MODERATELY TO SEVERELY DECREASED: 30-44 ml/min/1.73 m2 G4,SEVERELY DECREASED: 15-29 ml/min/1.73 m2 G5,KIDNEY FAILURE: <15 ml/min/1.73 m2 01/21/2025 3:40 AM CDT us Renee Hannon PA-C LABORATORY Final Resul t [facility] [address] [place] [address], [id number] * (ABNORMAL) CBC W/DIFF AUTOMATED (01/21/2025 3:40 AM CDT) [facility] WBC 4.67 4.00 - 10.80 x10'3/uL 01/21/2025 3:48 AM CDT [facility] RBC 4.34(L) 4.50 - 6.10 x10'6/uL 01/21/2025 3:48 AM CDT [facility] HGB 12.9 12.0 - 16.0 G/DL 01/21/2025 3:48 AM CDT [facility] HCT 38.5 37.0 - 52.0 % 01/21/2025 3:48 AM CDT [facility] MCV 88.7 78.0 - 100.0 FL 01/21/2025 3:48 AM CDT [facility] MCH 29.7 27.0 - 31.0 PG 01/21/2025 3:48 AM CDT [facility] MCHC 33.5 33.0 - 36.0 G/DL 01/21/2025 3:48 AM CDT [facility] RDW 12.6 11.5 - 14.5 % 01/21/2025 3:48 AM CDT [facility] PLT 170 150 - 350 x10'3/uL 01/21/2025 3:48 AM CDT [facility] MPV 9.3 7.4 - 10.4 FL 01/21/2025 3:48 AM CDT [facility] DIFFERENTIAL TYPE AUTOMATED DIFFERENTIAL 01/21/2025 3:48 AM CDT [facility] SEG NEUTROPHILS 52.3 % 3:48 AM CDT [facility] LYMPHOCYTES 31.3 % 01/21/2025 3:48 AM CDT [facility] MONOCYTES 13.5 % 01/21/2025 3:48 AM CDT [facility] EOSINOPHILS 2.1 % 01/21/2025 3:48 AM CDT [facility] BASOPHILS 0.6 % 01/21/2025 3:48 AM CDT [facility] IMMATURE GRANS % 0.2 % 01/22/20 3:48 AM CDT [facility] ABS. NEUTROPHILS 2.44 1.60 - 8.30 x10'3/uL 01/21/2025 3:48 AM CDT [facility] ABS. LYMPHOCYTES 1.46 0.80 - 4.70 x10'3/uL 01/21/2025 3:48 AM CDT [facility] ABS. MONOCYTES 0.63 0.00 - 1.50 x10'3/uL 01/21/2025 3:48 AM CDT [facility] ABS. EOSINOPHILS 0.10 0.00 - 0.40 x10'3/uL 01/21/2025 3:48 AM CDT [facility] ABS. BASOPHILS 0.03 0.00 - 0.20 x10'3/uL 01/21/2025 3:48 AM CDT [facility] ABS. IMMATURE GRANULOCYTES 0.01 0.00 - 0.03 x10'3/uL 01/21/2025 3:48 AM CDT [facility] ABS. NUCLEATED RBC'S 0.00 0.00 - 0.01 x10'3/uL 01/21/2025 3:48 AM CDT [facility] NRBC % 0.0 % 01/21/2025 3:48 AM CDT [facility] 01/21/2025 3:4 0 AM CDT Renee Hannon PA-C LABORATORY Final Resul t [facility] [address] [place] [address], [phone] * (ABNORMAL) LIPID PANEL (01/21/2025 3:40 AM CDT) CHOLESTEROL 137 MG/DL 01/21/2025 4:25 AM CDT [facility] Comment:DESIRABLE: <200 TRIGLYCERIDES 137 MG/DL 01/21/2025 4:25 AM CDT [facility] Comment:<150 NORMAL HDL 38(L) >39 MG/DL 01/21/2025 4:25 AM CDT [facility] LDL (CALCULATED) 72 MG/DL 01/22/20 4:25 AM CDT [facility] Comment:<100 OPTIMAL VLDL CALCULATION 27 MG/DL 01/22/20 4:25 AM CDT [facility] Comment:REFERENCE RANGE NOT ESTABLISHED CHOL/HDL RATIO 3.6 01/21/2025 4:25 AM CDT [facility] Comment:REFERENCE RANGE NOT ESTABLISHED LDL/HDL 1.9 01/21/2025 4:25 AM CDT [facility] Comment:REFERENCE RANGE NOT ESTABLISHED NON HDL CHOLESTEROL 99 MG/DL 01/21/2025 4:25 AM CDT [facility] Comment:REFERENCE RANGE NOT ESTABLISHED 01/21/2025 3:40 AM CDT Renee Hannon PA-C LABORATORY Final Resul t [facility] [address] [place] [address], [phone] * (ABNORMAL) POCT glucose (01/20/2025 8:30 PM CDT) GLUCOSE POC 207(H) 70 - 109 01/20/2025 9:36 PM CDT [facility] 01/20/2025 8:30 PM CDT us Sandra J Ray DO POCT ORDERABLES - DEVICE Fi nal Result Performing Organization Address City/[facility]/ZIP Co de Phone Number [facility] [address] [place] [address], [place] [phone] * (ABNORMAL) POCT glucose (01/20/2025 5:34 PM CDT) GLUCOSE POC 220(H) 70 - 109 01/20/2025 5:38 PM CDT [facility] 01/20/2025 5:34 PM CDT Sandra Mendeston POCT ORDERABLES - DEVICE Fi nal Result Performing Organization Address [facility] de Phone Number [facility] [address] [place] [address], [place] [phone] * MRI CERV SPINE WO CON (01/20/2025 5:10 PM CDT) Anatomical Region Laterality Modality Spine Magnetic Resonan ce 01/21/2025 7:05 AM CDT Impressions 01/21/2025 7:15 AM CDT IMPRESSION: 1. No convincing evidence of cord contusion, however significant artifact (predominantly related to patient motion) significantly limits this evaluation. 2. Chronic nonunited C2 fracture. Ordered By: OBINNA GIBBS Interpreted By: Bryan Vogel MD, 01/21/2025 7:05 AM Narrative 01/21/2025 7:15 AM CDT [facility] [address] [place], [place] [address] EXAMINATION: MRI OF THE CERVICAL SPINE WITHOUT CONTRAST INDICATION: Concern for cord contusion. COMPARISON: CTA head and neck on 01/20/2025. TECHNIQUE: Multiplanar and multi-sequential MRI examination of the cervical spine was performed without contrast. FINDINGS: Notable imaging artifact limiting this evaluation. There is exaggerated lordosis of the cervical spine, favored to be positional. No evidence of significant spondylolisthesis. There is multilevel minimal intervertebral disc space narrowing and associated endplate degenerative changes. There is a chronic nonunited C2 fracture with fluid in the fracture cleft. Evaluation for cord signal abnormality is limited due to extensive artifact (predominantly due to patient motion). No convincing evidence of a cord contusion is seen. The craniovertebral junction is normal. Individual disk levels are as follows: C2-3: Minimal central protrusion with uncovertebral and facet arthropathy. No significant spinal canal or neural foraminal stenosis. C3-4: Minimal disc osteophyte complex without significant spinal canal or neural foraminal stenosis. C4-5: Mild disc bulge with minimal uncovertebral and facet arthropathy. Mild spinal canal stenosis. Mild bilateral neural foraminal stenoses. C5-6: Mild disc bulge with uncovertebral and facet arthropathy and ligamentous thickening. Mild spinal canal stenosis. Daam-io-wpcwldkq bilateral neural foraminal stenoses. C6-7: Minimal disc bulge with facet arthropathy. No significant spinal canal stenosis. No convincing evidence of significant neural foraminal stenosis though artifact limits accurate characterization. C7-T1: No evidence of significant spinal canal or neural foraminal stenosis. Procedure Note Bryan Vogel MD - 01/21/2025 [place] [id number] EXAMINATION: MRI OF THE CERVICAL SPINE WITHOUT CONTRAST INDICATION: Concern for cord contusion. COMPARISON: CTA head and neck on 01/20/2025. TECHNIQUE: Multiplanar and multi-sequential MRI examination of the cervical spine wasperformed without contrast. FINDINGS: Notable imaging artifact limiting this evaluation. There is exaggerated lordosis of the cervical spine, favored to bepositional. No evidence of significant spondylolisthesis. There ismultilevel minimal intervertebral disc space narrowing and associatedendplate degenerative changes. 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 Evaluation for cord signal abnormalityis limited due to extensive artifact (predominantly due to patientmotion). No convincing evidence of a cord contusion is seen. Thecraniovertebral junction is normal. Individual disk levels are as follows: C2-3: Minimal central protrusion with uncovertebral and facet arthropathy.No significant spinal canal or neural foraminal stenosis. C3-4: Minimal disc osteophyte complex without significant spinal canal orneural foraminal stenosis. C4-5: Mild disc bulge with minimal uncovertebral and facet arthropathy.Mild spinal canal stenosis. Mild bilateral neural foraminal stenoses. C5-6: Mild disc bulge with uncovertebral and facet arthropathy andligamentous thickening. Mild spinal canal stenosis. Nkfb-pt-dzwrdxiuagaqualeb neural foraminal stenoses. C6-7: Minimal disc bulge with facet arthropathy. No significant spinalcanal stenosis. No convincing evidence of significant neural foraminalstenosis though artifact limits accurate characterization. C7-T1: No evidence of significant spinal canal or neural foraminalstenosis. IMPRESSION: 1. No convincing evidence of cord contusion, however significant artifact(predominantly related to patient motion) significantly limits thisevaluation. 2. Chronic nonunited C2 fracture. Ordered By: OBINNA GIBBS Interpreted By: Bryan Vogel MD, 01/21/2025 7:05 AM us Obinna Gibbs MD MRI Final Result * MRI BRAIN WO CON (01/20/2025 4:58 PM CDT) Anatomical Region Laterality Modality Head Magnetic Resonan ce 01/20/2025 6:13 PM CDT Impressions 01/20/2025 6:26 PM CDT IMPRESSION: 1. Small acute left-sided strokes in the left basal ganglia and adjacent temporal lobe. Possible additional stroke in the inferomedial left temporal lobe. 2. Volume loss and probable small vessel disease. 3. Calvarial contour abnormality could be correlated with prior trauma. 4. Preliminary report was sent to Dr Gibbs by [employer] at 1825 hours on 01/20/2025. Referred By: ISAK KANG Interpreted By: Ryan Prasad MD, 01/20/2025 6:13 PM Narrative 01/20/2025 6:26 PM [address]T [address] [address] EXAM: MRI BRAIN WO CON DATE: 01/20/2025 COMPARISON: None. Head CT from earlier today. INDICATION: Stroke TECHNIQUE: Noncontrast multiplanar multisequence imaging. Routine priority exam. FINDINGS: There are abnormal diffusion findings consistent with acute strokes. The 2 larger findings are in the posterior left basal ganglia and the adjacent brain between the sylvian fissure and temporal horn. There are 2 smaller subependymal foci of high signal along the lateral side of the left ventricular atrium. Possible additional small acute stroke in the anteromedial left temporal lobe. The inferomedial temporal finding is not well seen on the ADC images. The other abnormalities are low signal consistent with the acute strokes. On the gradient images, there is serpiginous and mild focal low signal in the brain adjacent to the smoothly marginated depression in the calvarium posterior laterally on the right side. Probable hemosiderin deposition. Moderate diffuse volume loss. Normal ventricular size. No midline shift. There is a focal defect in the mid body of the corpus callosum. This measures about 6 mm and could be an old stroke. With substantial artifact on the FLAIR images, bilateral focal and confluent hyperintensity likely represent small vessel disease. Normal flow voids in the basilar and internal carotid arteries. Procedure Note Ryan Prasad MD - 01/20/[address] [address] EXAM: MRI BRAIN WO CON DATE: 01/20/2025 COMPARISON: None. Head CT from earlier today. INDICATION: Stroke TECHNIQUE: Noncontrast multiplanar multisequence imaging. Routinepriority exam. FINDINGS: There are abnormal diffusion findings consistent with acutestrokes. The 2 larger findings are in the posterior left basal gangliaand the adjacent brain between the sylvian fissure and temporal horn.There are 2 smaller subependymal foci of high signal along the lateralside of the left ventricular atrium. Possible additional small acutestroke in the anteromedial left temporal lobe. The inferomedial temporalfinding is not well seen on the ADC images. The other abnormalities arelow signal consistent with the acute strokes. On the gradient images, there is serpiginous and mild focal low signal inthe brain adjacent to the smoothly marginated depression in the calvariumposterior laterally on the right side. Probable hemosiderin deposition. Moderate diffuse volume loss. Normal ventricular size. No midline shift.There is a focal defect in the mid body of the corpus callosum. Thismeasures about 6 mm and could be an old stroke. With substantial artifact on the FLAIR images, bilateral focal andconfluent hyperintensity likely represent small vessel disease. Normalflow voids in the basilar and internal carotid arteries. IMPRESSION: 1. Small acute left-sided strokes in the left basal ganglia and adjacenttemporal lobe. Possible additional stroke in the inferomedial lefttemporal lobe. 2. Volume loss and probable small vessel disease. 3. Calvarial contour abnormality could be correlated with prior trauma. 4. Preliminary report was sent to Dr Gibbs by [employer] [id number] hours on 01/20/2025. Referred By: ISAK KANG Interpreted By: Ryan Prasad MD, 01/20/2025 6:13 PM Obinna Gibbs MD MRI Final Result * (ABNORMAL) POCT glucose (01/20/2025 12:40 PM CDT) [facility] GLUCOSE POC 283(H) 70 - 109 01/20/2025 2:59 PM CDT [facility] 01/20/2025 12:4 0 PM CDT Sandra Ray DO POCT ORDERABLES - DEVICE Fi nal Result [facility] [address] [place] [id number], [id number] * CT HEAD WO CON (01/20/2025 11:35 AM CDT) Anatomical Region Laterality Modality Head Computed Tomogra phy 01/20/2025 12:1 8 PM CDT Impressions 01/20/2025 12:24 PM CDT IMPRESSION: 1. No acute intracranial process identified. 2. Cortical atrophy and small vessel disease. 3. 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 Clinical correlation required. Referred By: ISAK KANG Interpreted By: Atilio Varela MD, 01/20/2025 12:18 PM Narrative 01/20/2025 12:24 PM CDT [facility] [address] [place], [place] [address] Examination: CT of the head without contrast. Exam time: 1135 hours. Clinical history: Right-sided weakness. Visual disturbance. History of diabetes and hypertension. Comparison: None Technique: Noncontrast axial scans from skull base to vertex. Sagittal and coronal reconstructions were performed from the data set. A dose lowering technique was used for this procedure, which may include, but is not limited to, dose reduction techniques, automated exposure control, the use of iterative reconstruction and ALARA/Image Gently techniques. Findings: There is prominence of the ventricles, fissures and sulci, greater than anticipated for age, compatible with moderate diffuse cortical atrophy. No shift of midline or mass effect is noted. There is periventricular decreased attenuation, compatible with small vessel disease. No other areas of abnormal x-ray attenuation are identified. In particular, there is no mass, hemorrhage or sign of acute stroke. No extracerebral fluid collections. The mastoid air cells and paranasal sinuses appear clear. Deformity of the right posterior parietal calvarium may be congenital versus remote posttraumatic sequela. Correlation with the history is advised. Procedure Note Atilio Varela MD - 01/20/2025 [facility] [address] [place], [place] [address] Examination: CT of the head without contrast. Exam time: 1135 hours. Clinical history: Right-sided weakness. Visual disturbance. History ofdiabetes and hypertension. Comparison: None Technique: Noncontrast axial scans from skull base to vertex. [place] coronal reconstructions were performed from the data set. A doselowering technique was used for this procedure, which may include, but isnot limited to, dose reduction techniques, automated exposure control, theuse of iterative reconstruction and ALARA/Image Gently techniques. Findings: There is prominence of the ventricles, fissures and sulci,greater than anticipated for age, compatible with moderate diffusecortical atrophy. No shift of midline or mass effect is noted. There isperiventricular decreased attenuation, compatible with small vesseldisease. No other areas of abnormal x-ray attenuation are identified. Inparticular, there is no mass, hemorrhage or sign of acute stroke. Noextracerebral fluid collections. The mastoid air cells and paranasalsinuses appear clear. Deformity of the right posterior parietal calvariummay be congenital versus remote posttraumatic sequela. Correlation withthe history is advised. IMPRESSION: 1. No acute intracranial process identified. 2. Cortical atrophy and small vessel disease. 3. Deformity of the right posterior parietal calvarium-congenital versusold trauma. Clinical correlation required. Referred By: ISAK KANG Interpreted By: Atilio Varela MD, 01/20/2025 12:18 PM Renee Hannon PA-C CT Final Resul t * CTA HEAD+NECK (01/20/2025 11:35 AM CDT) Anatomical Region Laterality Modality Head, Neck Computed Tomogra phy 01/20/2025 12:3 3 PM CDT Impressions 01/20/2025 1:07 PM CDT IMPRESSION: 1. No acute or significant cervicocerebral vascular abnormality identified. 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 See text. 2. 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 3. Additional chronic/nonurgent findings as described. Referred By: ISAK KANG Interpreted By: Atilio Varela MD, 01/20/2025 12:33 PM Narrative 01/20/2025 1:[address] PM [address] [address] Examination: Cervicocerebral CTA. Exam time: 1137 hours. Clinical history: Right-sided weakness. Visual disturbance. Suspected chronic C2 fracture. Comparison: CT neck, 01/19/2025, noncontrast head CT, 01/20/2025. Technique: Thin section spiral axial scans were acquired from the level of the aortic arch to the vertex during the administration of intravenous contrast for evaluation of the carotid and vertebral arteries and their distributions. 3-D MIP sagittal and coronal, rotating 3-D MIP and rotating volume rendered 3-D reconstructions were performed from the data set. A dose lowering technique was used for this procedure, which may include, but is not limited to, dose reduction techniques, automated exposure control, the use of iterative reconstruction and ALARA/Image Gently techniques. Stenosis estimates are made using NASCET criteria. Findings: VASCULAR FINDINGS: There is the typical configuration of the origin of the great vessels from the aortic arch. There is minor atherosclerotic calcification of the aorta and arch vessels. The brachiocephalic and bilateral subclavian and axillary arteries are widely patent. The vertebral arteries are rather diminutive but widely patent bilaterally with slight left dominance. 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 The left vertebral artery continues as the basilar artery which is hypoplastic proximally but patent. 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 The arteries of the [place] are otherwise unremarkable with no aneurysm, vascular malformation or major vessel occlusion identified. The common and internal carotid arteries and carotid bulbs are widely patent bilaterally with only mild disease in the siphons. Dense calcific plaque at the origin of the left external carotid artery precludes reliable assessment although there is no poststenotic dilatation. The external carotid arteries are otherwise widely patent. NONVASCULAR FINDINGS: There is no abnormal intracranial enhancement. The orbits and orbital contents appear unremarkable. The patient is nearly edentulous. 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 There is spondylosis, in keeping with age. Changes from median sternotomy again evident. Incidental azygos lobe is noted. Findings suggesting pulmonary fibrosis again evident. Procedure Note Atilio Varela MD - 01/20/[address] [address] Examination: Cervicocerebral CTA. Exam time: 1137 hours. Clinical history: Right-sided weakness. Visual disturbance. Suspectedchronic C2 fracture. Comparison: CT neck, 01/19/2025, noncontrast head CT, 01/20/2025. Technique: Thin section spiral axial scans were acquired from the level ofthe aortic arch to the vertex during the administration of intravenouscontrast for evaluation of the carotid and vertebral arteries and theirdistributions. 3-D MIP sagittal and coronal, rotating 3-D MIP and rotatingvolume rendered 3-D reconstructions were performed from the data set. Adose lowering technique was used for this procedure, which may include,but is not limited to, dose reduction techniques, automated exposurecontrol, the use of iterative reconstruction and ALARA/Image Gentlytechniques. Stenosis estimates are made using NASCET criteria. Findings: VASCULAR FINDINGS: There is the typical configuration of the origin of thegreat vessels from the aortic arch. There is minor atheroscleroticcalcification of the aorta and arch vessels. The brachiocephalic andbilateral subclavian and axillary arteries are widely patent. Thevertebral arteries are rather diminutive but widely patent bilaterallywith slight left dominance. There is hypoplasia of the V 4 segmentsbilaterally with the right giving rise to terminal branches in thecerebellum. The left vertebral artery continues as the basilar arterywhich is hypoplastic proximally but patent. Anatomic variant persistenttrigeminal artery on the left primarily supplies the distal basilar arterywhich is widely patent. Anatomic variant origin of the rightposterior cerebral artery and aplasia of the right A1 segment againevident. The arteries of the [place] are otherwise unremarkablewith no aneurysm, vascular malformation or major vessel occlusionidentified. The common and internal carotid arteries and carotid bulbsare widely patent bilaterally with only mild disease in the siphons.Dense calcific plaque at the origin of the left external carotid arteryprecludes reliable assessment although there is no poststenoticdilatation. The external carotid arteries are otherwise widely patent. NONVASCULAR FINDINGS: There is no abnormal intracranial enhancement. Theorbits and orbital contents appear unremarkable. The patient is nearlyedentulous. 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 There is spondylosis, in keeping with age. Changes from mediansternotomy again evident. Incidental azygos lobe is noted. Findingssuggesting pulmonary fibrosis again evident. IMPRESSION: 1. No acute or significant cervicocerebral vascular abnormalityidentified. 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 Seetext. 2. 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 3. Additional chronic/nonurgent findings as described. Referred By: ISAK KANG Interpreted By: Atilio Varela MD, 01/20/2025 12:33 PM us Renee Hannon PA-C CT Final Resul t * ECG 12 lead (01/20/2025 11:26 AM CDT) 01/20/2025 11:2 6 AM CDT Narrative [facility] - 01/20/2025 1:32 PM CDT [place] [address] [place] [address] Test Date: 2025-01-20 Pat Name: ОЛЕГ WATSON Department: 1 Room: 726AA Gender: Male Legislators: Mike : 1955 Requested By: SANDRA RAY Order Number: [id number] Reading : Wil Rogers Measurements Intervals [place] Rate: 89 P: 12 WI: 176 QRS: 21 QRSD: 98 T: 47 QT: 358 QTc: 436 Interpretive Statements SINUS RHYTHM POSSIBLE LEFT ATRIAL ENLARGEMENT [-0.1mV P-WAVE IN V1/V2] POSSIBLE ANTERIOR MYOCARDIAL INFARCTION , OF INDETERMINATE AGE [30 ms Q WAVE IN V3/V4, OR R < 0.2 mV IN V4] Procedure Note Wil Rogers MD - 01/20/2025 [place] [address] [place] [address] Test Date: 2025-01-20 Pat Name: ОЛЕГ WATSON Department: 1 Room: 726AA Gender: Male Legislators: : 1955 Requested By: SANDRA RAY Order Number: [id number] Reading GUIDO Rogers Measurements Intervals [place] Rate: 89 P: 12 WI: 176 QRS: 21 QRSD: 98 T: 47 QT: 358 QTc: 436 Interpretive Statements SINUS RHYTHM POSSIBLE LEFT ATRIAL ENLARGEMENT [-0.1mV P-WAVE IN V1/V2] POSSIBLE ANTERIOR MYOCARDIAL INFARCTION , OF INDETERMINATE AGE [30 ms QWAVE IN V3/V4, OR R < 0.2 mV IN V4] us Sandra Ray DO ECG ORDERABLES Final Resul t Performing Organization Address City/[facility]/ZIP Co de Phone Number [facility] * (ABNORMAL) FIBRINOGEN (01/20/2025 11:24 AM CDT) Pathologist [facility] FIBRINOGEN 457(H) 200 - 393 MG/DL 01/20/2025 11:41 AM CDT [facility] 01/20/2025 11:2 4 AM CDT us Sandra Ray DO LABORATORY Final Resul t Performing Organization Address [facility] de Phone Number [facility] [address] [place] [address], [id number] * (ABNORMAL) D-DIMER, QUANTITATIVE (01/20/2025 11:24 AM CDT) [facility] D-DIMER 607(H) 0 - 500 ng{FEU}/mL 01/20/2025 11:42 AM CDT [facility] EXCLUSION STATEMENT 01/20/2025 11:45 AM CDT [facility] Comment: D-Dimer values less than or equal to 500 ng/mL FEU have a negative predictive value of >95% for exclusion of deep vein thrombosis and pulmonary embolism. In patients over 50 (who tend to have higher normal baseline D-Dimer values), recent studies suggest age-adjusted D-Dimer cutoff values (calculated as: age [years] x 10 ng/mL) result in equivalent outcomes and no additional false negative findings. 01/20/2025 11:2 4 AM CDT us Sandra Ray DO LABORATORY Final Resul t Performing Organization Address [facility] Co de Phone Number [facility] [address] [place] [address], [id number] * TROPONIN, QUANT (01/20/2025 11:24 AM CDT) TROPONIN I HIGH SENSITIVITY 9 0 - 78 ng/L 01/20/2025 12:00 PM CDT [facility] 01/20/2025 11:2 4 AM CDT Sandra J [facility] LABORATORY Final Resul t Performing Organization Address [facility] Co de Phone Number [facility] [address] [place] [address], [phone] * PARTIAL THROMBOPLASTIN TIME,PTT (01/20/2025 11:24 AM CDT) PTT 33.8 25.1 - 36.5 SEC 01/20/2025 11:43 AM CDT [facility] 01/20/2025 11:2 4 AM CDT us Sandra Cain [facility] LABORATORY Final Resul t Performing Organization Address [facility] de Phone Number [facility] [address] [place] [address], [phone] * PROTIME/INR, VENOUS (01/20/2025 11:24 AM CDT) PROTIME 11.8 9.4 - 12.5 SEC 01/20/2025 11:41 AM CDT [facility] INR 1.0 0.8 - 1.1 01/20/2025 11:41 AM CDT [facility] Comment: RESULTS, SPECIMEN DATE, TIME WERE READ BACK BY NOEMY [id number] @ 1143. 3.29.25 TW 01/20/2025 11:2 4 AM CDT us Sandra Ray DO LABORATORY Final Resul t [facility] [address] [place] [address], [id number] * (ABNORMAL) COMPREHENSIVE METABOLIC PANEL (01/20/2025 11:24 AM CDT) Pathologist [facility] SODIUM S/P/B 135(L) 136 - 145 MMOL/L 01/20/2025 12:00 PM CDT [facility] POTASSIUM S/P/B 4.2 3.5 - 5.1 MMOL/L 01/20/2025 12:00 PM CDT [facility] CHLORIDE S/P/B 102 97 - 115 MMOL/L 01/20/2025 12:00 PM CDT [facility] CO2 24.6 21.0 - 32.0 MMOL/L 01/20/2025 12:00 PM CDT [facility] GLUCOSE 272(H) 74 - 106 MG/DL 01/20/2025 12:00 PM CDT [facility] BUN 12 7 - 18 MG/DL 01/20/2025 12:00 PM CDT [facility] CREATININE S/P/B 1.45(H) 0.70 - 1.30 MG/DL 01/20/2025 12:00 PM CDT [facility] CALCIUM S/P/B 9.2 8.5 - 10.1 MG/DL 01/20/2025 12:00 PM CDT [facility] BILIRUBIN TOTAL S/P/B 0.3 0.2 - 1.0 MG/DL 01/20/2025 12:00 PM CDT [facility] ALKALINE PHOSPHATASE S/P/B 87 45 - 115 U/L 01/20/2025 12:00 PM CDT [facility] AST 16 15 - 37 U/L 01/20/2025 12:00 PM CDT [facility] ALT 19 16 - 61 U/L 01/20/2025 12:00 PM T [facility] TOTAL PROTEIN S/P/B 6.6 6.4 - 8.2 G/DL 01/20/2025 12:00 PM T [facility] ALBUMIN S/P/B 2.9(L) 3.4 - 5.0 G/DL 01/20/2025 12:00 PM T [facility] ANION GAP 8.4 2.0 - 10.0 MMOL/L 01/20/2025 12:00 PM T [facility] OSMOLALITY (CALC) 289 MOSM/KG 025 12:00 PM T [facility] Comment:REFERENCE RANGE NOT ESTABLISHED GFR ESTIMATE 52(L) >90 ML/MIN/1. 73 M2 01/20/2025 12:00 PM [facility] GFR NOTES GFR REFERENCE S: 01/20/2025 12:00 PM [facility] Comment: THE ESTIMATED GFR IS CALCULATED USING THE 2020 CKD-EPI EQUATION. THE FOLLOWING CATEGORIES FOR GRADING RENAL FUNCTION ARE RECOMMENDED BY THE INTERNATIONAL SOCIETY OF NEPHROLOGY (KDIGO 2012 CLINICAL PRACTICE GUIDELINE). G1,NORMAL OR HIGH: >89 ml/min/1.73 m2 G2,MILDLY DECREASED: 60-89 ml/min/1.73 m2 G3A,MILDLY TO MODERATELY DECREASED: 45-59 ml/min/1.73 m2 G3B,MODERATELY TO SEVERELY DECREASED: 30-44 ml/min/1.73 m2 G4,SEVERELY DECREASED: 15-29 ml/min/1.73 m2 G5,KIDNEY FAILURE: <15 ml/min/1.73 m2 01/20/2025 11:2 4 AM CDT us Sandra Ray DO LABORATORY Final Resul t [facility] [address] [place] [address], [id number] * (ABNORMAL) CBC W/DIFF AUTOMATED (01/20/2025 11:24 AM CDT) [facility] WBC 4.85 4.00 - 10.80 x10'3/uL 01/20/2025 11:30 AM CDT [facility] RBC 4.38(L) 4.50 - 6.10 x10'6/uL 01/20/2025 11:30 AM CDT [facility] HGB 13.2 12.0 - 16.0 G/DL 01/20/2025 11:30 AM CDT [facility] HCT 38.5 37.0 - 52.0 % 01/20/2025 11:30 AM CDT [facility] MCV 87.9 78.0 - 100.0 FL 01/20/2025 11:30 AM CDT [facility] MCH 30.1 27.0 - 31.0 PG 01/20/2025 11:30 AM CDT [facility] MCHC 34.3 33.0 - 36.0 G/DL 01/20/2025 11:30 AM CDT [facility] RDW 12.8 11.5 - 14.5 % 01/20/2025 11:30 AM CDT [facility] PLT 176 150 - 350 x10'3/uL 01/20/2025 11:30 AM CDT [facility] MPV 9.4 7.4 - 10.4 FL 01/20/2025 11:30 AM CDT [facility] DIFFERENTIAL TYPE AUTOMATED DIFFERENTIAL 01/20/2025 11:30 AM CDT [facility] SEG NEUTROPHILS 59.4 % 11:30 AM CDT [facility] LYMPHOCYTES 26.8 % 01/20/2025 11:30 AM CDT [facility] MONOCYTES 11.8 % 01/20/2025 11:30 AM CDT [facility] EOSINOPHILS 1.0 % 01/20/2025 11:30 AM CDT [facility] BASOPHILS 0.6 % 01/20/2025 11:30 AM CDT [facility] IMMATURE GRANS % 0.4 % 01/21/20 11:30 AM CDT [facility] ABS. NEUTROPHILS 2.88 1.60 - 8.30 x10'3/uL 01/20/2025 11:30 AM CDT [facility] ABS. LYMPHOCYTES 1.30 0.80 - 4.70 x10'3/uL 01/20/2025 11:30 AM CDT [facility] ABS. MONOCYTES 0.57 0.00 - 1.50 x10'3/uL 01/20/2025 11:30 AM CDT [facility] ABS. EOSINOPHILS 0.05 0.00 - 0.40 x10'3/uL 01/20/2025 11:30 AM CDT [facility] ABS. BASOPHILS 0.03 0.00 - 0.20 x10'3/uL 01/20/2025 11:30 AM CDT [facility] ABS. IMMATURE GRANULOCYTES 0.02 0.00 - 0.03 x10'3/uL 01/20/2025 11:30 AM CDT [facility] ABS. NUCLEATED RBC'S 0.00 0.00 - 0.01 x10'3/uL 01/20/2025 11:30 AM CDT [facility] NRBC % 0.0 % 01/20/2025 11:30 AM CDT [facility] 01/20/2025 11:2 4 AM CDT us Sandra Ray DO LABORATORY Final Resul t [facility] [address] [place] [address], [id number] * CKMB(MB FRACTION ONLY) (01/20/2025 11:22 AM CDT) CK-MB <1.0 0.5 - 3.6 NG/ML 01/20/2025 12:25 PM CDT [facility] 01/20/2025 11:2 2 AM CDT Sandra Payton MendesRay DO LABORATORY Final Resul t Performing Organization Address [facility] de Phone Number [facility] [address] [place] [address], [id number] * CK (CPK) (01/20/2025 11:22 AM CDT) CPK 121 39 - 308 U/L 01/20/2025 12:25 PM CDT [facility] 01/20/2025 11:2 2 AM CDT Sandra Mendeston LABORATORY Final Resul t Performing Organization Address [facility] de Phone Number [facility] [address] [place] [address], [phone] * (ABNORMAL) POCT glucose (01/20/2025 11:13 AM CDT) GLUCOSE POC 320(H) 70 - 109 01/20/2025 11:21 AM CDT [facility] 01/20/2025 11:1 3 AM CDT Sandra Cain [facility] POCT ORDERABLES - DEVICE Fi nal Result Performing Organization Address [facility] de Phone Number [facility] [address] [place] [address], [id number] * (ABNORMAL) POCT glucose (01/20/2025 6:17 AM CDT) GLUCOSE POC 204(H) 70 - 109 01/20/2025 8:54 AM CDT [facility] 01/20/2025 6:17 AM CDT Sandra Payton Ray POCT ORDERABLES - DEVICE Fi nal Result Performing Organization Address [facility] de Phone Number [facility] [address] [place] [address], [id number] * (ABNORMAL) POCT glucose (01/20/2025 5:56 AM CDT) GLUCOSE POC 189(H) 70 - 109 01/20/2025 8:54 AM CDT [facility] 01/20/2025 5:56 AM CDT Sandra Ray DO POCT ORDERABLES - DEVICE Fi nal Result Performing Organization Address [facility] de Phone Number [facility] [address] [place] [address], [phone] * CBC W/DIFF AUTOMATED (01/20/2025 2:35 AM CDT) [facility] WBC 4.74 4.00 - 10.80 x10'3/uL 01/20/2025 2:51 AM CDT [facility] RBC 4.61 4.50 - 6.10 x10'6/uL 01/20/2025 2:51 AM CDT [facility] HGB 13.5 12.0 - 16.0 G/DL 01/20/2025 2:51 AM CDT [facility] HCT 40.4 37.0 - 52.0 % 01/20/2025 2:51 AM CDT [facility] MCV 87.6 78.0 - 100.0 FL 01/20/2025 2:51 AM CDT [facility] MCH 29.3 27.0 - 31.0 PG 01/20/2025 2:51 AM CDT [facility] MCHC 33.4 33.0 - 36.0 G/DL 01/20/2025 2:51 AM CDT [facility] RDW 12.5 11.5 - 14.5 % 01/20/2025 2:51 AM CDT [facility] PLT 177 150 - 350 x10'3/uL 01/20/2025 2:51 AM CDT [facility] MPV 9.3 7.4 - 10.4 FL 01/20/2025 2:51 AM CDT [facility] DIFFERENTIAL TYPE AUTOMATED DIFFERENTIAL 01/20/2025 2:51 AM CDT [facility] SEG NEUTROPHILS 55.9 % 2:51 AM CDT [facility] LYMPHOCYTES 26.4 % 01/20/2025 2:51 AM CDT [facility] MONOCYTES 15.6 % 01/20/2025 2:51 AM CDT [facility] EOSINOPHILS 1.5 % 01/20/2025 2:51 AM CDT [facility] BASOPHILS 0.4 % 01/20/2025 2:51 AM CDT [facility] IMMATURE GRANS % 0.2 % 01/21/20 2:51 AM CDT [facility] ABS. NEUTROPHILS 2.65 1.60 - 8.30 x10'3/uL 01/20/2025 2:51 AM CDT [facility] ABS. LYMPHOCYTES 1.25 0.80 - 4.70 x10'3/uL 01/20/2025 2:51 AM CDT [facility] ABS. MONOCYTES 0.74 0.00 - 1.50 x10'3/uL 01/20/2025 2:51 AM CDT [facility] ABS. EOSINOPHILS 0.07 0.00 - 0.40 x10'3/uL 01/20/2025 2:51 AM CDT [facility] ABS. BASOPHILS 0.02 0.00 - 0.20 x10'3/uL 01/20/2025 2:51 AM CDT [facility] ABS. IMMATURE GRANULOCYTES 0.01 0.00 - 0.03 x10'3/uL 01/20/2025 2:51 AM CDT [facility] ABS. NUCLEATED RBC'S 0.00 0.00 - 0.01 x10'3/uL 01/20/2025 2:51 AM CDT [facility] NRBC % 0.0 % 01/20/2025 2:51 AM CDT [facility] 01/20/2025 2:35 AM CDT Phylicia Howard INSTALLATION SERVICE REPRESENTATIVE LABORATORY Final Result Performing Organization Address [facility] Co de Phone Number [facility] [address] [place] [address], [phone] * PHOSPHORUS, INORGANIC PHOSPHATE (01/20/2025 2:35 AM CDT) PHOSPHORUS 2.5 2.5 - 4.9 MG/DL 01/20/2025 3:15 AM CDT [facility] 01/20/2025 2:35 AM CDT Phylicia Howard INSTALLATION SERVICE REPRESENTATIVE LABORATORY Final Result Performing Organization Address City/[facility] Co de Phone Number [facility] [address] [place] [address], [phone] * MAGNESIUM (01/20/2025 2:35 AM CDT) MAGNESIUM 1.6 1.6 - 2.6 MG/DL 01/20/2025 3:15 AM CDT [facility] 01/20/2025 2:35 AM CDT Phylicia Howard NP LABORATORY Final Result [facility] [address] [place] [address], [phone] * (ABNORMAL) BASIC METABOLIC PANEL (01/20/2025 2:35 AM CDT) SODIUM S/P/B 137 136 - 145 MMOL/L 01/20/2025 3:15 AM CDT [facility] POTASSIUM S/P/B 3.6 3.5 - 5.1 MMOL/L 01/20/2025 3:15 AM CDT [facility] CHLORIDE S/P/B 103 97 - 115 MMOL/L 01/20/2025 3:15 AM CDT [facility] CO2 28.2 21.0 - 32.0 MMOL/L 01/20/2025 3:15 AM CDT [facility] GLUCOSE 194(H) 74 - 106 MG/DL 01/20/2025 3:15 AM CDT [facility] BUN 10 7 - 18 MG/DL 01/20/2025 3:15 AM CDT [facility] CREATININE S/P/B 1.12 0.70 - 1.30 MG/DL 01/20/2025 3:15 AM CDT [facility] CALCIUM S/P/B 9.5 8.5 - 10.1 MG/DL 01/20/2025 3:15 AM CDT [facility] ANION GAP 5.8 2.0 - 10.0 MMOL/L 01/20/2025 3:15 AM CDT [facility] OSMOLALITY (CALC) 288 MOSM/KG 025 3:15 AM CDT [facility] Comment:REFERENCE RANGE NOT ESTABLISHED GFR ESTIMATE 72(L) >90 ML/MIN/1. 73 M2 01/20/2025 3:15 AM CDT [facility] GFR NOTES GFR REFERENCE S: 01/20/2025 3:15 AM CDT [facility] Comment: THE ESTIMATED GFR IS CALCULATED USING THE 2020 CKD-EPI EQUATION. THE FOLLOWING CATEGORIES FOR GRADING RENAL FUNCTION ARE RECOMMENDED BY THE INTERNATIONAL SOCIETY OF NEPHROLOGY (KDIGO 2012 CLINICAL PRACTICE GUIDELINE). G1,NORMAL OR HIGH: >89 ml/min/1.73 m2 G2,MILDLY DECREASED: 60-89 ml/min/1.73 m2 G3A,MILDLY TO MODERATELY DECREASED: 45-59 ml/min/1.73 m2 G3B,MODERATELY TO SEVERELY DECREASED: 30-44 ml/min/1.73 m2 G4,SEVERELY DECREASED: 15-29 ml/min/1.73 m2 G5,KIDNEY FAILURE: <15 ml/min/1.73 m2 01/20/2025 2:35 AM CDT Phylicia Howard INSTALLATION SERVICE REPRESENTATIVE LABORATORY Final Result Performing Organization Address [facility] Co de Phone Number [facility] [address] [place] [address], [id number] * (ABNORMAL) POCT glucose (01/20/2025 12:47 AM CDT) GLUCOSE POC 241(H) 70 - 109 01/20/2025 12:54 AM CDT [facility] 01/20/2025 12:4 7 AM CDT us Sandra Ray DO POCT ORDERABLES - DEVICE Fi nal Result Performing Organization Address [facility] Co de Phone Number [facility] [address] [place] [address], [id number] * XR CERV SPINE LAT 1V (01/19/2025 10:10 PM CDT) Anatomical Region Laterality Modality Spine Radiographic Lindsey ging 01/20/2025 4:16 AM CDT Impressions 01/20/2025 4:20 AM CDT IMPRESSION: The known C2 fracture is not well depicted radiographically. No significant cortical step-off is seen involving the C2 vertebrae. Referred By: ISAK KANG Interpreted By: Alfie Davey MD, 01/20/2025 4:16 AM Narrative 01/20/2025 4:20 AM CDT [address] [address] EXAMINATION: XR CERV SPINE LAT 1V HISTORY: Closed C2 fracture. COMPARISON: CTA neck 01/19/2025. TECHNIQUE: Single lateral view of the cervical spine. FINDINGS: Diffuse osteopenia of the cervical spine. The known C2 fracture seen on comparison CT imaging is not well depicted radiographically. No significant cortical step-off seen involving the C2 vertebrae. Vertebral body heights appear preserved. Multilevel degenerative disc space narrowing. Multilevel facet arthropathy. Prevertebral soft tissues appear normal. Procedure Note Alfie Davey MD - 01/20/[address] [address] EXAMINATION: XR CERV SPINE LAT 1V HISTORY: Closed C2 fracture. COMPARISON: CTA neck 01/19/2025. TECHNIQUE: Single lateral view of the cervical spine. FINDINGS: Diffuse osteopenia of the cervical spine. The known C2 fracture seen oncomparison CT imaging is not well depicted radiographically. Nosignificant cortical step-off seen involving the C2 vertebrae. Vertebralbody heights appear preserved. Multilevel degenerative disc spacenarrowing. Multilevel facet arthropathy. Prevertebral soft tissues appearnormal. IMPRESSION: The known C2 fracture is not well depicted radiographically. Nosignificant cortical step-off is seen involving the C2 vertebrae. Referred By: ISAK KANG Interpreted By: Alfie Davey MD, 01/20/2025 4:16 AM Bravo Killian MD GENERAL IMAGING Final Result * (ABNORMAL) HEMOGLOBIN, GLYCOSYLATED (01/19/2025 8:58 PM CDT) HGB A1C 12.3(H) <5.7 % 01/19/2025 9:55 PM CDT [facility] ESTIMATED AVG GLUCOSE 306(H) 74 - 114 MG/DL 01/19/2025 9:55 PM CDT [facility] 01/19/2025 8:58 PM CDT Phylicia Howard NP LABORATORY Final Result Performing Organization Address [facility] Co de Phone Number [facility] [address] [place] [address], [place] [phone] * (ABNORMAL) POCT glucose (01/19/2025 8:52 PM CDT) [facility] GLUCOSE POC 231(H) 70 - 109 01/19/2025 9:03 PM CDT [facility] 01/19/2025 8:52 PM CDT us Romulo German MD POCT ORDERABLES - DEVICE Final Result Performing Organization Address [facility] de Phone Number [facility] [address] [place] [address], [place] [phone] * CT CHEST+ABD+PEL W CON (01/19/2025 8:21 PM CDT) Anatomical Region Laterality Modality Chest, Abdomen, Pelvis Computed Tomography 01/19/2025 8:43 PM CDT Impressions 01/19/2025 9:17 PM CDT IMPRESSION: 1. No CT evidence of acute injury to the solid organs or hollow viscus of the abdomen and pelvis. Referred By: ISAK KANG Interpreted By: Trina Ferrera DO, 01/19/2025 8:43 PM Narrative 01/19/2025 9:17 PM CDT [facility] [address] CLINICAL INDICATION: 69-year-old male. Reason for examination: Ground-level fall with abdominal pain 01/19/2025 7:58 PM, Kwan Varela L: 100ml [id number] injected into AC, creat 0.8 from [facility]. Trauma CAT 3 transfer - Pt fall and laid on the ground for hours. known dens fx. Images from [facility] on PACS. Scanned by [employer] TECHNIQUE: CT of the chest, abdomen and pelvis was obtained in the axial projection following administration of 100 cc of Isovue 370. Additional delayed images were obtained. through the same levels. Coronal and sagittal reconstructions were provided of both phases of imaging. Intravenous contrast was injected via indwelling IV access site in the right antecubital fossa. No adverse contrast reaction. It should be noted that the dictations for the chest and abdomen and pelvis are contained within this one report. Dose lowering technique was used for this study which may include, but is not limited to, dose reduction techniques, automated exposure control, use of iterative reconstruction and ALARA (As low As Reasonably Achievable)/Image Gently techniques. COMPARISON: For the purposes of this study there is, portable trauma chest radiograph from [facility] at 15:48.. Outside imaging also includes CTA head and neck, CT brain and CT C-spine CT chest without contrast 12/09/2023. FROM [facility] CT chest without contrast 03/20/2023. [facility] CT abdomen and pelvis without contrast [facility] FINDINGS: CHEST: There is no pneumothorax. No pleural effusion or consolidation. No findings of interstitial edema or congestion. No localized nodular opacities that would suggest pulmonary hemorrhage or pulmonary contusion. The lingula and left lower lobe opacity is now better seen to be asymmetric elevation left diaphragm and large epicardial fat pad. There is no CT findings of pneumonia. There is, however mid and lower lung field peripheral tree-in-bud and probably thickened bronchial smith in the lower lung bhardwaj without mucous plugging or endobronchial lesion. Probably bronchitis or bronchiolitis this is unchanged since the [address] studies. May be chronic. Redemonstration of stable rounded 13 mm pleural-based nodule lateral basal segment right lower lobe (axial image 65). Interval development of tiny central calcifications may be developing granuloma. There is no mediastinal or hilar or axillary lymphadenopathy. The heart is normal in size. No pericardial effusion. There is no hepatic venous reflux. Heavy right and left and circumflex and LAD [place] coronary artery calcifications which have been over supplied by CABG. VASCULAR IMAGING: All segments of the thoracic and abdominal aorta are normal in caliber. No evidence of traumatic aortic injury. No evidence of aortic dissection. No periaortic fluid in the chest or abdomen. Normal caliber and normal opacification 3 separate great vessels. Normal caliber normal opacification mesenteric arteries and single right and single left with accessory left renal artery. Essentially no calcific or atheromatous disease in the aorta or great vessels mesenteric arteries and renal arteries. No hemodynamically significant narrowing of the inflow. There is long segment scattered plaque of proximal outflow arteries. This is unchanged since 2022. BONE WINDOW IMAGING: The sternum is well healed around median sternotomy wire sutures. No evidence of acute sternal fracture. The lower clavicles are intact. Right and left ribs intact. Old wedge compression deformity superior endplate T10 with 10% loss of height of this vertebral segment and exaggeration due to central spinal stenosis. No retropulsion of the posterior vertebral margin. There is no acute fracture or traumatic malalignment in the thoracolumbar spine pelvis or hips. . MPRESSION: 1.No CT evidence of acute traumatic injury to the thoracic or abdominal aorta 2.No pneumothorax. No congestion or pneumonia or pleural effusion or pneumonia. 3.The opacification of lingula and left lower lobe seen on the trauma chest radiograph is now seen to be superimposition of large left pericardial fat pad and elevated left diaphragm... 4. Chronic findings suggestive of bronchitis or bronchiolitis 5. No acute fracture in the bony thorax 6. No acute fracture in the thoracolumbar spine pelvis or hips 7. Old wedge compression deformity T10 ABDOMEN: The liver, spleen, pancreas adrenal glands and kidneys are grossly normal. Mild gallbladder distention with the fundus of the gallbladder abutting the lateral abdominal wall. No gallbladder wall thickening or pericholecystic fluid or gallstones or sludge. There is no extrahepatic ductal dilatation. There is no evidence of traumatic injury to the organs of the abdomen or pelvis. Both kidneys demonstrate symmetric uptake concentration and clearance of the contrast material. No hydronephrosis. Normal caliber ureters opacify through the abdomen into the bladder. There is no peritoneal or retroperitoneal fluid or hemorrhage. GI: The stomach is unremarkable. The unopacified loops of small bowel and colon are grossly normal in caliber and position. No evidence of traumatic bowel wall injury or bowel wall hematoma. No bowel obstruction. PELVIS: The urinary bladder is filled with contrast. Normal size. Normal bladder wall around the contrast. There is no extravasation of contrast to suggest injury to the renal collecting systems.. No free fluid in the dependent pelvis. The prostate measures 4 cm in diameter. Tiny TURP defect. Procedure Note Trina Ferrera MD - 01/19/2025 [facility] [address] [place], [place] [address] CLINICAL INDICATION: 69-year-old male. Reason for examination: Ground-level fall with abdominal pain 01/19/2025 7:58 PM, Kwan Varela L: 100ml [id number] injected into AC,creat 0.8 from [facility]. Trauma CAT 3 transfer - Pt fall and laid on the groundfor hours. known dens fx. Images from [facility] on PACS. Scanned by [employer] TECHNIQUE: CT of the chest, abdomen and pelvis was obtained in the axial projectionfollowing administration of 100 cc of Isovue 370. Additional delayedimages were obtained. through the same levels. Coronal and sagittalreconstructions were provided of both phases of imaging. Intravenouscontrast was injected via indwelling IV access site in the rightantecubital fossa. No adverse contrast reaction. It should be noted that the dictations for the chest and abdomen andpelvis are contained within this one report. Dose lowering technique was used for this study which may include, but isnot limited to, dose reduction techniques, automated exposure control, useof iterative reconstruction and ALARA (As low As ReasonablyAchievable)/Image Gently techniques. COMPARISON: For the purposes of this study there is, portable trauma chest radiographfrom [facility] at 15:48.. Outside imaging also includes CTAhead and neck, CT brain and CT C-spine CT chest without contrast 12/09/2023. FROM [facility] CT chest without contrast 03/20/2023. [facility] CT abdomen and pelvis without contrast [facility] FINDINGS: CHEST: There is no pneumothorax. No pleural effusion or consolidation. Nofindings of interstitial edema or congestion. No localized nodularopacities that would suggest pulmonary hemorrhage or pulmonary contusion.The lingula and left lower lobe opacity is now better seen to beasymmetric elevation left diaphragm and large epicardial fat pad. Thereis no CT findings of pneumonia. There is, however mid and lower lungfield peripheral tree-in-bud and probably thickened bronchial smith in thelower lung bhardwaj without mucous plugging or endobronchial lesion.Probably bronchitis or bronchiolitis this is unchanged since the 2previous CT studies. May be chronic. Redemonstration of stable rounded 13 mm pleural-based nodule lateral basalsegment right lower lobe (axial image 65). Interval development of tinycentral calcifications may be developing granuloma. There is no mediastinal or hilar or axillary lymphadenopathy. The heart is normal in size. No pericardial effusion. There is nohepatic venous reflux. Heavy right and left and circumflex and LAD [place]coronary artery calcifications which have been over supplied by CABG. VASCULAR IMAGING: All segments of the thoracic and abdominal aorta are normal in caliber.No evidence of traumatic aortic injury. No evidence of aortic dissection.No periaortic fluid in the chest or abdomen. Normal caliber and normalopacification 3 separate great vessels. Normal caliber normalopacification mesenteric arteries and single right and single left withaccessory left renal artery. Essentially no calcific or atheromatousdisease in the aorta or great vessels mesenteric arteries and renalarteries. No hemodynamically significant narrowing of the inflow. Thereis long segment scattered plaque of proximal outflow arteries. This isunchanged since 2022. BONE WINDOW IMAGING: The sternum is well healed around median sternotomy wire sutures. Noevidence of acute sternal fracture. The lower clavicles are intact.Right and left ribs intact. Old wedge compression deformity superior endplate T10 with 10% loss ofheight of this vertebral segment and exaggeration due to central spinalstenosis. No retropulsion of the posterior vertebral margin. There is noacute fracture or traumatic malalignment in the thoracolumbar spine pelvisor hips. . MPRESSION: 1.No CT evidence of acute traumatic injury to the thoracic or abdominalaorta 2.No pneumothorax. No congestion or pneumonia or pleural effusion orpneumonia. 3.The opacification of lingula and left lower lobe seen on the traumachest radiograph is now seen to be superimposition of large leftpericardial fat pad and elevated left diaphragm... 4. Chronic findings suggestive of bronchitis or bronchiolitis 5. No acute fracture in the bony thorax 6. No acute fracture in the thoracolumbar spine pelvis or hips 7. Old wedge compression deformity T10 ABDOMEN: The liver, spleen, pancreas adrenal glands and kidneys are grossly normal.Mild gallbladder distention with the fundus of the gallbladder abuttingthe lateral abdominal wall. No gallbladder wall thickening orpericholecystic fluid or gallstones or sludge. There is no extrahepaticductal dilatation. There is no evidence of traumatic injury to the organs of the abdomen orpelvis. Both kidneys demonstrate symmetric uptake concentration and clearance ofthe contrast material. No hydronephrosis. Normal caliber ureters opacifythrough the abdomen into the bladder. There is no peritoneal orretroperitoneal fluid or hemorrhage. GI: The stomach is unremarkable. The unopacified loops of small bowel andcolon are grossly normal in caliber and position. No evidence of traumaticbowel wall injury or bowel wall hematoma. No bowel obstruction. PELVIS: The urinary bladder is filled with contrast. Normal size. Normalbladder wall around the contrast. There is no extravasation of contrastto suggest injury to the renal collecting systems.. No free fluid in thedependent pelvis. The prostate measures 4 cm in diameter. Tiny TURPdefect. IMPRESSION: 1. No CT evidence of acute injury to the solid organs or hollow viscus ofthe abdomen and pelvis. Referred By: ISAK KANG Interpreted By: Trina Ferrera DO, 01/19/2025 8:43 PM Romulo German MD CT Final Result * CTA NECK (01/19/2025 8:21 PM CDT) Anatomical Region Laterality Modality Neck Computed Tomogra phy 01/19/2025 8:47 PM CDT Addenda Addendum by Maria G Gilbert MD on 01/21/2025 11:26 AM CDT [address] exam was performed using one or more of the following dose reduction techniques: automated exposure control, adjustment of the mA and/or kV according to patient size, the use of iterative reconstruction technique, use of ALARA (As Low As Reasonably Achievable) and/or use of Image Gently techniques. Referred By: ISAK KANG Interpreted By: Maria G Gilbert MD, 01/21/2025 11:25 AM Impressions 01/19/2025 9:11 PM CDT IMPRESSION: 1. Ununited comminuted fracture of the base of the odontoid with 3 to 4 mm anterior displacement of the odontoid with respect to the body of C2 with diastases on the fracture line with adjacent mildly displaced fracture fragments. There is widening of the interspinous distance at C1-C2. 2. No vascular injury or extravasation. 3. Atherosclerotic calcifications in the aortic arch and distal left common carotid artery extending into the origin of left external carotid artery and minimally at the origin of the left carotid bulb with less than 50% stenosis. No hemodynamically significant stenosis or aneurysm in the cervical internal carotid arteries. 4. 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 5. 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 6. origin of right posterior cerebral artery from the supraclinoid right internal carotid artery with developmental hypoplasia of the right T1 segment of the basilar tip. 7. Severe hypoplasia or less likely atherosclerotic stenosis of the A1 segment of right anterior cerebral artery. The right A2 segment is supplied predominantly from the left anterior cerebral artery via the anterior communicating artery. 8. Please see above report for the other findings. Referred By: ISAK KANG Interpreted By: Maria G Gilbert MD, 01/19/2025 8:47 PM Narrative 01/19/2025 9:11 PM [address] [address] EXAMINATION: CTA Neck Without and With Intravenous Contrast. Axial imaging, with 2-D Coronal and Sagittal Reconstructions and 3-D MIP and 3-D Volume Rendered Reconstructions. 3-D images were obtained on an independent workstation. 100 mL Isovue-370 was administered intravenously for the post-contrast images. Carotid stenosis evaluation is based on NASCET criteria. INDICATION: Fracture of the odontoid. COMPARISON: None. FINDINGS: Classic 3 vessel aortic arch anatomy. Atherosclerotic calcifications in the aortic arch and into the descending thoracic aorta. The left vertebral artery is dominant. Mild atherosclerotic calcifications and distal left common carotid artery extending into the origin of left external carotid artery and minimally at the origin of the left carotid bulb with difficulty evaluating the degree of stenosis of the origin of the left external carotid artery but with good opacification of the left external carotid artery distal to the dense calcification at its origin. No hemodynamically significant stenosis or aneurysm of the great vessels, common carotids, or the cervical internal carotid and vertebral arteries. No vascular injury or extravasation is seen. 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 There is also origin of the right posterior cerebral artery from the supraclinoid right internal carotid artery with developmental hypoplasia of the right P1 segment of the basilar tip, also developmental variant. There is severe hypoplasia of the basilar artery proximal to the persistent trigeminal artery. There is severe developmental hypoplasia or less likely atherosclerotic stenosis of the A1 segment of right anterior cerebral artery. The right A2 segment is supplied predominantly from the left anterior cerebral artery via the anterior communicating artery. The left posterior communicating artery is not visualized. Atherosclerotic calcifications are seen in bilateral distal intracranial internal carotid arteries with less than 50% stenosis. There is an ununited comminuted fracture of the base of the odontoid with 3 to 4 mm anterior displacement of the odontoid with respect to the body of C2 with diastases on the fracture line with adjacent mildly displaced fracture fragments. There is widening of the interspinous distance at C1-C2. No vascular injury or extravasation is seen. There is rightward curvature of cervical spine with preservation of cervical lordosis. No suspicious neck mass or abnormal enhancement. No pathologic lymphadenopathy. No acute osseous abnormality. There is generalized age-appropriate atrophy with [id number] nonspecific patchy hypodensity in the periventricular and deep cerebral white matter in the partially included bilateral deep cerebral white matter, likely nonspecific chronic white matter microvascular disease. Please refer to the CT chest exam of same date regarding the intrathoracic findings. Procedure Note Maria G Gilebrt MD - 01/19/[address] [address] EXAMINATION: CTA Neck Without and With Intravenous Contrast. Axialimaging, with 2-D Coronal and Sagittal Reconstructions and 3-D MIP and3-D Volume Rendered Reconstructions. 3-D images were obtained on anindependent workstation. 100 mL Isovue-370 was administered intravenouslyfor the post-contrast images. Carotid stenosis evaluation is based onNASCET criteria. INDICATION: Fracture of the odontoid. COMPARISON: None. FINDINGS: Classic 3 vessel aortic arch anatomy. Atheroscleroticcalcifications in the aortic arch and into the descending thoracic aorta.The left vertebral artery is dominant. Mild atheroscleroticcalcifications and distal left common carotid artery extending into theorigin of left external carotid artery and minimally at the origin of theleft carotid bulb with difficulty evaluating the degree of stenosis of theorigin of the left external carotid artery but with good opacification ofthe left external carotid artery distal to the dense calcification at itsorigin. No hemodynamically significant stenosis or aneurysm of the greatvessels, common carotids, or the cervical internal carotid and vertebralarteries. No vascular injury or extravasation is seen. 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 There issevere developmental hypoplasia of the basilar artery from its confluenceof the left vertebral artery to the level of the left trigeminal artery.There is also origin of the right posterior cerebral artery from thesupraclinoid right internal carotid artery with developmental hypoplasiaof the right P1 segment of the basilar tip, also developmental variant.There is severe hypoplasia of the basilar artery proximal to thepersistent trigeminal artery. There is severe developmental hypoplasia orless likely atherosclerotic stenosis of the A1 segment of right anteriorcerebral artery. The right A2 segment is supplied predominantly from theleft anterior cerebral artery via the anterior communicating artery. Theleft posterior communicating artery is not visualized. Atheroscleroticcalcifications are seen in bilateral distal intracranial internal carotidarteries with less than 50% stenosis. There is an ununited comminuted fracture of the base of the odontoid with3 to 4 mm anterior displacement of the odontoid with respect to the bodyof C2 with diastases on the fracture line with adjacent mildly displacedfracture fragments. There is widening of the interspinous distance atC1-C2. No vascular injury or extravasation is seen. There is rightwardcurvature of cervical spine with preservation of cervical lordosis. Nosuspicious neck mass or abnormal enhancement. No pathologiclymphadenopathy. No acute osseous abnormality. There is generalizedage-appropriate atrophy with [id number] nonspecific patchyhypodensity in the periventricular and deep cerebral white matter in thepartially included bilateral deep cerebral white matter, likelynonspecific chronic white matter microvascular disease. Please refer tothe CT chest exam of same date regarding the intrathoracic findings. IMPRESSION: 1. Ununited comminuted fracture of the base of the odontoid with 3 to 4mm anterior displacement of the odontoid with respect to the body of C2with diastases on the fracture line with adjacent mildly displacedfracture fragments. There is widening of the interspinous distance atC1-C2. 2. No vascular injury or extravasation. 3. Atherosclerotic calcifications in the aortic arch and distal leftcommon carotid artery extending into the origin of left external carotidartery and minimally at the origin of the left carotid bulb with less than50% stenosis. No hemodynamically significant stenosis or aneurysm in thecervical internal carotid arteries. 4. 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 5. 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 6. origin of right posterior cerebral artery from the supraclinoidright internal carotid artery with developmental hypoplasia of the rightT1 segment of the basilar tip. 7. Severe hypoplasia or less likely atherosclerotic stenosis of the [id number] of right anterior cerebral artery. The right A2 segment issupplied predominantly from the left anterior cerebral artery via theanterior communicating artery. 8. Please see above report for the other findings. Referred By: ISAK KANG Interpreted By: Maria G Gilbert MD, 01/19/2025 8:47 PM Romulo German MD CT Edited Result - Final * (ABNORMAL) POCT glucose (01/19/2025 7:17 PM CDT) GLUCOSE POC 232(H) 70 - 109 01/19/2025 7:23 PM CDT [facility] 01/19/2025 7:17 PM CDT Pio Brown MD POCT ORDERABLES - DEVICE Final R esult [facility] [address] [place] [address], [id number] documented in this encounter Visit Diagnoses Diagnosis Closed C2 fracture ([facility])- Primary Closed fracture of second cervical vertebra without mention of spinal cord injury C2 cervical fracture ([facility]) Closed fracture of second cervical vertebra without mention of spinal cord injury Fall Unspecified fall Benign essential HTN Essential hypertension, benign Hyperlipidemia Other and unspecified hyperlipidemia Coronary artery disease involving [place] coronary artery of [place] heart without angina pectoris Acute right-sided weakness Hemiplegia, unspecified, affecting unspecified side Blurry vision Other specified visual disturbances Acute embolic stroke ([facility]) Cerebral embolism with cerebral infarction Dysphagia, unspecified type Closed C2 fracture ([facility]) Closed fracture of second cervical vertebra without mention of spinal cord injury Uncontrolled type 2 diabetes mellitus with hyperglycemia ([facility]) Acute embolic stroke ([facility]) Cerebral embolism with cerebral infarction Fall Unspecified fall documented in this encounter Admitting Diagnoses Diagnosis Closed C2 fracture ([facility]) Closed fracture of second cervical vertebra without mention of spinal cord injury Fall Unspecified fall documented in this encounter Administered Medications Inactive Administered Medications - up to 3 most recent administrations Medication Order MAR Action Action Date Dose Rate Site acetaminophen (TYLENOL) 160 MG/5ML solution 650 mg 650 mg, Tube, Every 4 hours PRN, Mild pain (Scale 1 - 3), Starting on Wed01/22/25 at 1359, Until Wed02/02/25 at 1633, Give if unable to swallow tablets/capsules or if patient prefers liquid. Maximum dose of acetaminophen is 4000 mg from all sources in 24 hours. Given 01/29/2025 9:24 PM CDT 650 mg Given 01/25/2025 5:06 AM CDT 650 mg Given 01/23/2025 4:31 PM CDT 650 mg acetaminophen (TYLENOL) suppository 650 mg 650 mg, Rectal, Every 4 hours PRN, Mild pain (Scale 1 - 3), Starting on Wed01/22/25 at 1359, Until Wed02/02/25 at 1633, Give if unable to take PO. Maximum dose of acetaminophen is 4000 mg from all sources in 24 hours. acetaminophen (TYLENOL) tablet 650 mg 650 mg, Tube, Every 4 hours PRN, Mild pain (Scale 1 - 3), Starting on Wed01/22/25 at 1359, Until Wed02/02/25 at 1633, Maximum dose of acetaminophen is 4000 mg from all sources in 24 hours. albuterol (PROVENTIL) (2.5 MG/3ML) 0.083% nebulizer solution 2.5 mg 2.5 mg, Nebulization, 2 times daily PRN, Shortness of breath, Starting on Keisha 01/25/25 at 1230, Until Wed02/02/25 at 1633, Available for use with 7% sodium chloride nebs Given 01/26/2025 7:19 PM CDT 2.5 mg Given 01/26/2025 8:08 AM CDT 2.5 mg Given 01/25/2025 2:53 PM CDT 2.5 mg aspirin chewable tablet 81 mg 81 mg, Oral, Daily, First dose on 01/20/25 at 1745, Until Discontinued Given 01/22/2025 9:17 AM CDT 81 mg aspirin chewable tablet 81 mg 81 mg, Tube, Daily, First dose (after last modification) on Wed01/23/25 at 0900, Until Discontinued Given 02/02/2025 9:32 AM CDT 81 mg Given 02/01/2025 9:06 AM CDT 81 mg Given 01/31/2025 8:50 AM CDT 81 mg aspirin suppository 300 mg 300 mg, Rectal, Once, 1 dose, On 01/20/25 at 2130 Given 01/20/2025 10:50 PM CDT 300 mg atorvastatin (LIPITOR) tablet 80 mg 80 mg, Oral, Nightly at bedtime, First dose (after last modification) on 01/20/25 at 2100, Until Discontinued Given 01/21/2025 9:23 PM CDT 80 mg atorvastatin (LIPITOR) tablet 80 mg 80 mg, Tube, Nightly at bedtime, First dose (after last modification) on 01/22/25 at 2100, Until Discontinued Given 02/01/2025 8:12 PM CDT 80 mg Given 01/31/2025 9:18 PM CDT 80 mg Given 01/30/2025 8:12 PM CDT 80 mg atropine 1 % ophthalmic solution 1 drop 1 drop, Sublingual, 3 times daily PRN, secretions, Starting on Keisha 01/25/25 at 0940, Until Wed02/02/25 at 1633 barium sulfate (E-Z-PAQUE) 96 % suspension 176 g 176 g, Oral, Once, 1 dose, On 01/28/25 at 1800, FOR G TUBE PLACEMENT WITH IR on 01/29/25 IR Nurse to TUBE Barium to floor-sent to 870 - Fill barium bottle to line with water and shake well - Give 1 cup/8oz of barium to patient either oral or via NG/Keofed at 1800 on 01/28/25-night before procedure - NPO after 0001 on 01/29/25 including tube feedings - HOLD anticoagulants and do not initiate NEW anticoagulation therapy. Please hold 01/29/25 morning dose of sub q heparin. Please call [phone] if any new blood thinners are started. Given 01/28/2025 7:00 PM CDT 176 g ceFAZolin (ANCEF) injection Code/trauma/sedation medication, Starting on Wed01/29/25 at 0855, Until Wed01/29/25 at 0855 Given 01/29/2025 8:55 AM CDT 2 g dextrose (GLUTOSE) 40 % oral gel 37.5-75 g 37.5-75 g (15-30 g of dextrose), Oral, As needed, Low blood sugar, Starting on Wed01/29/25 at 0008, Until Wed02/02/25 at 1633, If patient is verbally responsive and taking thickened liquids or oral medications: Blood glucose less than 50 mg/dL - give 30 g of dextrose; repeat until blood glucose reaches 70 mg/dL Blood glucose 50-69 mg/dL - give 15 g of dextrose; repeat until blood glucose reaches 70 mg/dL 37.5 g of glucose gel = 15 g of dextrose dextrose (GLUTOSE) 40 % oral gel 1 dose, Starting on 01/28/25 at 2313, Until Wed01/28/25 at 2317, Created by cabinet override 37.5 g of glucose gel = 15 g of dextrose Given 01/28/2025 11:17 PM CDT dextrose 10 % bolus infusion 125-250 mL 125-250 mL, Intravenous, Administer over 15 Minutes, As needed, Low Blood Sugar, Starting on Wed01/29/25 at 0008, Until Wed02/02/25 at 1633, If patient is verbally responsive and NPO or unable to swallow: Blood glucose less than 50 mg/dL - give 250 mL (25 g) and repeat until blood glucose reaches 70 mg/dL Blood glucose 50-69 mg/dL - give 125 mL (12.5 g) and repeat until blood glucose reaches 70 mg/dL If patient is verbally Unresponsive and NPO or unable to swallow: Blood glucose less than 70 mg/dL - give 250 mL (25 g), repeat until blood glucose reaches 70 mg/dL New Bag 01/29/2025 12:15 AM CDT 250 mLs 1000 mL/hr dextrose 10 % infusion 1 dose, Starting on Wed01/29/25 at 0010, Until Wed01/29/25 at 0042, Created by cabinet override dextrose 5 %-sodium chloride 0.9 % infusion at 50 mL/hr, Intravenous, Continuous, Starting on 01/27/25 at 1730, Until Tu01/30/25 at 1030 New Bag 01/30/2025 12:49 AM CDT 50 mL/hr New Bag 01/28/2025 9:49 AM CDT 50 mL/hr New Bag 01/27/2025 5:45 PM CDT 50 mL/hr enoxaparin (LOVENOX) 30 mg/0.3 mL syringe 30 mg 30 mg, Subcutaneous, Every 12 hours, First dose on [facility] 01/20/25 at 2130, Until Discontinued, Alternate dosing for patients greater than 65 years of age, weight is < 50 kg, or Administer by deep SubQ injection alternating between the left or right anterolateral and left or right posterolateral abdominal wall. Given 01/24/2025 9:07 PM CDT 30 mg Left Lower Abdomen Given 01/24/2025 10:29 AM CDT 30 mg L eft Lower Abdomen Given 01/23/2025 8:14 PM CDT 30 mg Le ft Lower Abdomen fentaNYL (SUBLIMAZE) injection Code/trauma/sedation medication, Starting on Wed01/29/25 at 0900, Until Wed01/29/25 at 0900 Given 01/29/2025 9:00 AM CDT 25 mcg fentaNYL (SUBLIMAZE) injection Code/trauma/sedation medication, Starting on Wed01/29/25 at 0909, Until Wed01/29/25 at 0909 Given 01/29/2025 9:09 AM CDT 25 mcg furosemide (LASIX) injection 40 mg 40 mg, Intravenous, Once, 1 dose, On Keisha 01/25/25 at 1500, Administer IV push 20-40mg/min. Given 01/25/2025 4:31 PM CDT 40 mg furosemide (LASIX) tablet 40 mg 40 mg, Oral, Daily, First dose on Wed01/26/25 at 1330, Until Discontinued Given 01/28/2025 9:51 AM CDT 40 mg Given 01/27/2025 9:03 AM CDT 40 mg Given 01/26/2025 7:04 PM CDT 40 mg furosemide (LASIX) tablet 40 mg 40 mg, Tube, Daily, First dose (after last modification) on Wed01/29/25 at 0900, Until Discontinued Given 02/02/2025 9:33 AM CDT 40 mg Given 02/01/2025 9:07 AM CDT 40 mg Given 01/31/2025 8:50 AM CDT 40 mg glucagon injection 1 mg 1 mg, Intramuscular, Once as needed, Other, Low blood sugar, 1 dose, Starting on Wed01/29/25 at 0008, Until Wed02/02/25 at 1633, If patient is verbally UNresponsive and no IV access with blood glucose less than 70 mg/dL. Do NOT repeat administration. glucagon injection Code/trauma/sedation medication, Starting on Wed01/29/25 at 0901, Until Wed01/29/25 at 0901 Given 01/29/2025 9:01 AM CDT 1 mg heparin (porcine) injection 5,000 Units 5,000 Units, Subcutaneous, Every 12 hours scheduled (2 times per day), First dose on Wed01/26/25 at 2100, Until Discontinued Given 02/02/2025 9:33 AM CDT 5,000 Units Left Upper Abdomen Given 02/01/2025 8:12 PM CDT 5,000 Units R ight Lower Abdomen Given 02/01/2025 9:05 AM CDT 5,000 Units R ight Lower Abdomen hydrALAZINE (APRESOLINE) injection 10 mg 10 mg, Intravenous, Every 6 hours PRN, Other, SBP > 160, Starting on Wed01/23/25 at 1628, Until Wed02/02/25 at 1633, Monitor HR and BP before dose and 15 min after IV dose. For IV push give over 1-2 minutes=5mg/min. Given 01/24/2025 4:14 AM CDT 10 mg Given 01/23/2025 4:50 PM CDT 10 mg HYDROcodone-acetaminophen (NORCO) 5-325 MG tablet 1 tablet 1 tablet, Tube, Every 6 hours PRN, Moderate pain (Scale 4 - 7), Starting on Wed01/22/25 at 1359, Until Wed02/02/25 at 1633, Maximum dose of acetaminophen is 4000 mg from all sources in 24 hours. Given 01/22/2025 11:48 PM CDT 1 tablet insulin glargine (LANTUS) injection 10 Units 10 Units, Subcutaneous, Nightly at bedtime, First dose (after last modification) on Wed01/22/25 at 2100, Until Discontinued Given 01/22/2025 9:14 PM CDT 10 Units Left Arm insulin glargine (LANTUS) injection 10 Units 10 Units, Subcutaneous, Once, 1 dose, On Wed01/25/25 at 1300 Given 01/25/2025 2:34 PM CDT 10 Units Right Upper Abdomen insulin glargine (LANTUS) injection 12 Units 12 Units, Subcutaneous, Nightly at bedtime, First dose (after last modification) on Wed01/23/25 at 2100, Until Discontinued Given 01/23/2025 8:15 PM CDT 12 Units Left Arm insulin glargine (LANTUS) injection 12 Units 12 Units, Subcutaneous, 2 times daily, First dose (after last modification) on Wed01/24/25 at 0900, Until Discontinued Given 01/24/2025 10:29 AM CDT 12 Units Left Arm insulin glargine (LANTUS) injection 12 Units 12 Units, Subcutaneous, Every morning, First dose on Wed01/30/25 at 1030, Until Discontinued Given 02/02/2025 6:41 AM CDT 12 Units Left Lower Abdomen Given 02/01/2025 6:49 AM CDT 12 Units Le ft Arm Given 01/31/2025 6:03 AM CDT 12 Units Le ft Arm insulin glargine (LANTUS) injection 15 Units 15 Units, Subcutaneous, Once, 1 dose, On Wed01/27/25 at 1200, Please give in addition to Lantus which has already been administered this morning. Thank you. Given 01/27/2025 12:55 PM CDT 15 Units Left Lower Abdomen insulin glargine (LANTUS) injection 16 Units 16 Units, Subcutaneous, 2 times daily, First dose (after last modification) on Wed01/24/25 at 2115, Until Discontinued Given 01/25/2025 9:46 AM CDT 16 Units Left Lower Abdomen Given 01/24/2025 9:10 PM CDT 16 Units Le ft Lower Abdomen insulin glargine (LANTUS) injection 20 Units 20 Units, Subcutaneous, Nightly at bedtime, First dose (after last modification) on Wed02/01/25 at 2100, Until Discontinued Given 02/01/2025 8:31 PM CDT 20 Units Left Lower Abdomen insulin glargine (LANTUS) injection 24 Units 24 Units, Subcutaneous, Nightly at bedtime, First dose on Wed01/30/25 at 2100, Until Discontinued Given 01/31/2025 9:18 PM CDT 24 Units Left Lower Abdomen Given 01/30/2025 8:12 PM CDT 24 Units Le ft Arm insulin glargine (LANTUS) injection 30 Units 30 Units, Subcutaneous, Every 12 hours, First dose (after last modification) on Wed01/25/25 at 2100, Until Discontinued Given 01/28/2025 9:53 AM CDT 30 Units Left Arm Given 01/27/2025 8:43 PM CDT 30 Units Le ft Lower Abdomen Given 01/27/2025 9:03 AM CDT 30 Units Le ft Upper Abdomen insulin glargine (LANTUS) injection 5 Units 5 Units, Subcutaneous, Nightly at bedtime, First dose on Wed01/19/25 at 2100, Until Discontinued Given 01/21/2025 9:23 PM CDT 5 Units Right Lower Abdomen Given 01/19/2025 9:51 PM CDT 5 Units Ri ght Upper Abdomen insulin lispro (HUMALOG/ADMELOG) injection 0-12 Units 0-12 Units, Subcutaneous, Every 4 hours, First dose (after last modification) on Wed01/25/25 at 0000, Until Discontinued, From sliding scale insulin subcut med order set - For TDI greater than or equal to 90 units Blood Glucose: (Less than 70: Initiate Hypoglycemia Standing Orders) (70 - 130, administer no lispro) (131 - 160, administer 8 units) (161 - 200, administer 10 units) (201 - 250, administer 14 units) (251 - 300, administer 16 units) (Please notify [facility] on-call for glucose <80 or >300. Notify if tubefeedings stop or are changed. Thank you.) Given 01/25/2025 9:46 AM CDT 12 Units Right Lower Abdomen Given 01/25/2025 4:37 AM CDT 10 Units Ri ght Arm Given 01/24/2025 11:49 PM CDT 10 Units R ight Lower Abdomen insulin lispro (HUMALOG/ADMELOG) injection 0-16 Units 0-16 Units, Subcutaneous, Every 4 hours, First dose (after last modification) on Wed01/24/25 at 0400, Until Discontinued, From sliding scale insulin subcut med order set - For TDI greater than or equal to 90 units Blood Glucose: (Less than 70: Initiate Hypoglycemia Standing Orders) (70 - 149, administer 0 units) (150 - 199, administer 4 units) (200 - 249, administer 8 units) (250 - 299, administer 10 units) (Greater than 300 Call [facility] oncall Provider) Given 01/24/2025 5:14 PM CDT 10 Units Left Arm Given 01/24/2025 1:55 PM CDT 10 Units Le ft Arm Given 01/24/2025 10:28 AM CDT 15 Units L eft Arm insulin lispro (HUMALOG/ADMELOG) injection 0-16 Units 0-16 Units, Subcutaneous, Every 4 hours, First dose (after last modification) on Keisha 01/25/25 at 1600, Until Discontinued, From sliding scale insulin subcut med order set - For TDI greater than or equal to 90 units Blood Glucose: (Less than 70: Initiate Hypoglycemia Standing Orders) (70 - 130, administer no lispro) (131 - 160, administer 10 units) (161 - 200, administer 12 units) (201 - 250, administer 14 units) (251 - 300, administer 16 units) (Please notify [facility] on-call for glucose <80 or >300. Notify if tubefeedings stop or are changed. Thank you.) Given 01/29/2025 5:49 AM CDT 12 Units Left Arm Given 01/28/2025 9:11 PM CDT 16 Units Ri ght Lower Abdomen Given 01/28/2025 3:51 PM CDT 16 Units Le ft Arm insulin lispro (HUMALOG/ADMELOG) injection 0-4 Units 0-4 Units, Subcutaneous, Every 4 hours, First dose (after last modification) on Wed01/29/25 at 1600, Until Discontinued, From sliding scale insulin subcut med order set - For TDI greater than or equal to 90 units Blood Glucose: (Less than 70: Initiate Hypoglycemia Standing Orders) (70 - 150, administer no lispro) (151 - 200, administer 2 units) (201 - 250, administer 3 units) (251 - 300, administer 4 units) (Please notify [facility] on-call for glucose <80 or >300. Notify if tubefeedings stop or are changed. Thank you.) Given 01/30/2025 8:31 AM CDT 3 Units Left Arm Given 01/30/2025 4:38 AM CDT 3 Units Le ft Lower Abdomen Given 01/30/2025 12:46 AM CDT 4 Units L eft Lower Abdomen insulin lispro (HUMALOG/ADMELOG) injection 0-6 Units 0-6 Units, Subcutaneous, Every 6 hours, First dose on 01/20/25 at 0000, Until Discontinued, From sliding scale insulin subcut med order set - For TDI less than 30 units Blood Glucose: (Less than 70, Initiate Hypoglycemia Standing Orders) (70 - 149, administer 0 units) (150 - 199, administer 1 units) (200 - 249, administer 2 units) (250 - 299, administer 3 units) (300 - 349, administer 4 units) (Greater than 349, administer 6 units and Call Physician) Given 01/22/2025 12:09 PM CDT 2 Units Right Lower Abdomen Given 01/22/2025 6:36 AM CDT 2 Units Le ft Lower Abdomen Given 01/21/2025 6:19 PM CDT 2 Units Ri ght Arm insulin lispro (HUMALOG/ADMELOG) injection 0-8 Units 0-8 Units, Subcutaneous, 4 times daily before meals and nightly, First dose on Wed01/22/25 at 1600, Until Discontinued, From sliding scale insulin subcut med order set - For TDI 30 - 59 units Blood Glucose: (Less than 70: Initiate Hypoglycemia Standing Orders) (70 - 149, administer 0 units) (150 - 199, administer 2 units) (200 - 249, administer 3 units) (250 - 299, administer 5 units) (300 - 349, administer 7 units) (Greater than 349, administer 8 units and Call Physician) Given 01/24/2025 12:35 AM CDT 8 Units Left Lower Abdomen Given 01/23/2025 6:25 PM CDT 7 Units Le ft Arm Given 01/23/2025 1:15 PM CDT 5 Units Le ft Arm insulin lispro (HUMALOG/ADMELOG) injection 0-8 Units 0-8 Units, Subcutaneous, Every 4 hours, First dose (after last modification) on Wed01/30/25 at 1200, Until Discontinued, From sliding scale insulin subcut med order set - For TDI greater than or equal to 90 units Blood Glucose: (Less than 70: Initiate Hypoglycemia Standing Orders) (70 - 150, administer no lispro) (151 - 200, administer 2 units) (201 - 250, administer 4 units) (251 - 300, administer 6 units) (Please notify [facility] on-call for glucose <80 or >300. Notify if tubefeedings stop or are changed. Thank you.) Given 01/30/2025 12:32 PM CDT 6 Units Left Arm insulin lispro (HUMALOG/ADMELOG) injection 1-18 Units 1-18 Units, Subcutaneous, Every 4 hours, First dose (after last reorder) on Wed01/31/25 at 1800, Until Discontinued, Blood sugar < 70 start hypoglycemia protocol Blood sugar between 70-140 = no additional insulin Blood sugar between 140- 180= + 2 units Blood sugar between 181- 220= + 4 units Blood sugar between 221 - 260= + 6 units Blood sugar between 261 -300= + 8 units Blood sugar between 300- 340= + 10 units Call [facility] for BG < 70 or > 300 , Given 02/01/2025 4:06 PM CDT 2 Units Left Arm Given 02/01/2025 12:00 PM CDT 2 Units R ight Arm Given 01/31/2025 5:36 PM CDT 4 Units Le ft Arm insulin lispro (HUMALOG/ADMELOG) injection 1-18 Units 1-18 Units, Subcutaneous, 4 times daily with meals and nightly, First dose (after last modification) on Wed02/02/25 at 0800, Until Discontinued, Blood sugar < 70 start hypoglycemia protocol Blood sugar between 70-140 = no additional insulin Blood sugar between 140- 180= + 2 units Blood sugar between 181- 220= + 4 units Blood sugar between 221 - 260= + 6 units Blood sugar between 261 -300= + 8 units Blood sugar between 300- 340= + 10 units Call [facility] for BG < 70 or > 300 , Given 02/01/2025 8:00 PM CDT 2 Units Left Lower Abdomen insulin lispro (HUMALOG/ADMELOG) injection 1-18 Units 1-18 Units, Subcutaneous, 4 times daily with meals and nightly, First dose (after last modification) on Wed02/02/25 at 0800, Until Discontinued, Blood sugar < 70 start hypoglycemia protocol Blood sugar between 70-140 = no additional insulin Blood sugar between 140- 180= + 2 units Blood sugar between 181- 220= + 4 units Blood sugar between 221 - 260= + 6 units Blood sugar between 261 -300= + 8 units Blood sugar between 300- 340= + 10 units Call [facility] for BG < 70 or > 300 , Given 02/02/2025 1:00 PM CDT 2 Units Left Upper Abdomen insulin lispro (HUMALOG/ADMELOG) injection 12 Units 12 Units, Subcutaneous, 4 times daily with meals and nightly, First dose (after last modification) on Wed01/31/25 at 1715, Until Discontinued, Before tube feed at 800, 1200, 1600, and 2000 Please give half the dose if blood sugar is < 120 and hold the dose if TF is stopped Call [facility] if blood sugar is < 70 or > 340 , no over night call for high blood sugars thanks Given 02/02/2025 1:00 PM CDT 12 Units Left Arm Given 02/02/2025 9:33 AM CDT 12 Units Le ft Upper Abdomen Given 02/01/2025 8:30 PM CDT 12 Units Le ft Lower Abdomen insulin lispro (HUMALOG/ADMELOG) injection 7 Units 7 Units, Subcutaneous, Once, 1 dose, On Wed01/24/25 at 0130, For sliding scale, activate Sliding Scale Insulin order set. Given 01/24/2025 1:17 AM CDT 7 Units Left Lower Abdomen insulin regular (NOVOLIN R/HUMULIN R) injection 1-20 Units 1-20 Units, Subcutaneous, Every 6 hours, First dose on Wed01/30/25 at 1500, Until Discontinued, Blood sugar < 70 start hypoglycemia protocol Blood sugar between 70-140 = no additional insulin Blood sugar between 140- 180= + 2 units Blood sugar between 181- 220= + 4 units Blood sugar between 221 - 260= + 6 units Blood sugar between 261 -300= + 8 units Blood sugar between 300- 340= + 10 units Call [facility] for BG < 70 or > 300 Given 01/31/2025 3:05 PM CDT 4 Units Left Arm Given 01/31/2025 8:57 AM CDT 2 Units Le ft Arm Given 01/30/2025 8:22 PM CDT 2 Units Le ft Arm insulin regular (NOVOLIN R/HUMULIN R) injection 12 Units 12 Units, Subcutaneous, Every 6 hours, First dose on Wed01/30/25 at 1500, Until Discontinued, Please give half the dose if blood sugar is < 120 and hold the dose if TF is stopped Call [facility] if blood sugar is < 70 or > 340 , no over night call for high blood sugars thanks Given 01/31/2025 3:03 PM CDT 12 Units Left Arm Given 01/31/2025 8:55 AM CDT 12 Units Le ft Arm Given 01/30/2025 8:21 PM CDT 12 Units Le ft Arm iopamidol (ISOVUE-300) 61 % injection 50 mL 50 mL, Tube, IMG once as needed, Contrast, 1 dose, Starting on Wed01/29/25 at 0917, Until Wed01/29/25 at 0917 Given 01/29/2025 9:17 AM CDT 50 mLs iopamidol (ISOVUE-370) 76 % injection 100 mL 100 mL, Intravenous, IMG once as needed, Contrast, 1 dose, Starting on Wed01/19/25 at 1954, Until Wed01/19/25 at 2020 Given 01/19/2025 8:21 PM CDT 100 mLs iopamidol (ISOVUE-370) 76 % injection 80 mL 80 mL, Intravenous, IMG once as needed, Contrast, 1 dose, Starting on 01/20/25 at 1135, Until 01/20/25 at 1136 Given 01/20/2025 11:36 AM CDT 80 mLs labetalol (TRANDATE) injection 20 mg 20 mg, Intravenous, Every 6 hours PRN, High blood pressure, SBP>160, Starting on Wed01/23/25 at 0206, Until Wed02/02/25 at 1633, Bolus may be administered by IV push at a rate of 10 mg/min. Monitor HR and BP prior to admin, 15 and 30 minutes post administration. Do not give if SBP <100mm or HR <55. Patient to stay supine during and for 30 minutes after IV administration due to potential for orthostatic hypotension. Given 01/23/2025 1:14 PM CDT 20 mg Given 01/23/2025 2:23 AM CDT 20 mg lansoprazole (PREVACID SOLUTAB) disintegrating tablet 30 mg 30 mg, Tube, Every morning before breakfast, First dose on Wed01/23/25 at 0700, Until Discontinued, Place the 30 mg tablet in an enteral dosing syringe and draw up ~10 mL purified water; gently shake syringe. After tablet has dispersed, gently shake the syringe to keep the granules from settling and administer via feeding tube; administer mixture within 15 minutes of preparation. Following administration, refill syringe with 5 mL purified water; shake gently and administer via feeding tube. General guidance: Hold EN 30 to 60 minutes prior to lansoprazole administration. Flush feeding tube with an appropriate volume of purified water (eg, 15 mL) before administration. Following the administration process described above, flush feeding tube with an appropriate volume of purified water (eg, 20 mL) and restart EN. Given 02/02/2025 6:38 AM CDT 3 0 mg Given 02/01/2025 6:49 AM CDT 30 mg Given 01/31/2025 6:03 AM CDT 30 mg lidocaine (XYLOCAINE) 1 % injection SOLN Code/trauma/sedation medication, Starting on Wed01/29/25 at 0855, Until Wed01/29/25 at 0855 Given 01/29/2025 8:55 AM CDT 10 mLs lidocaine 4 % patch 1 patch 1 patch, Transdermal, Administer over 12 Hours, Every 24 hours, First dose on Wed01/19/25 at 2100, Until Discontinued Patch Applied 02/01/2025 8:11 PM CDT 1 patch Back Patch Applied 01/31/2025 9:21 PM CDT 1 patch Back Patch Applied 01/30/2025 8:13 PM CDT 1 patch Back lidocaine viscous (XYLOCAINE) 2 % solution 15 mL 15 mL, Mouth/Throat, Once, 1 dose, On Wed01/21/25 at 1515, Shake Well. Dilute dose in 10 mL water and rinse and spit. Given by Other 01/21/2025 3:48 PM CDT 15 mLs lisinopril (PRINIVIL) tablet 5 mg 5 mg, Oral, Daily, First dose on Wed01/20/25 at 0900, Until Discontinued Given 01/22/2025 9:18 AM CDT 5 mg Given 01/20/2025 9:58 AM CDT 5 mg lisinopril (PRINIVIL) tablet 5 mg 5 mg, Tube, Daily, First dose (after last modification) on Wed01/23/25 at 0900, Until Discontinued Given 02/02/2025 9:33 AM CDT 5 mg Given 02/01/2025 9:06 AM CDT 5 mg Given 01/31/2025 8:50 AM CDT 5 mg magnesium hydroxide (MILK OF MAGNESIA) 400 MG/5ML suspension 30 mL 30 mL, Tube, Once, 1 dose, On Wed01/22/25 at 1300, Shake Well. Use to achieve relief of constipation in the following order if multiple PRN bowel agents are ordered: Docusate, then Senna-Docusate, then Miralax, then Bisacodyl, then Milk of Magnesia Given 01/22/2025 1:04 PM CDT 30 mLs magnesium oxide (MAG-OX) tablet 400 mg 400 mg, Tube, Once, 1 dose, On Wed01/22/25 at 1300 Given 01/22/2025 1:01 PM CDT 400 mg magnesium oxide (MAG-OX) tablet 800 mg 800 mg, Tube, Once, 1 dose, On Wed01/23/25 at 1045 Given 01/23/2025 11:47 AM CDT 800 mg metoprolol succinate ER (TOPROL-XL) 24 hr tablet 25 mg 25 mg, Oral, Daily, First dose on Wed01/20/25 at 0900, Until Discontinued, May be split in half along the tablet score line; do not chew or crush. Given 01/22/2025 9:17 AM CDT 25 mg Given 01/20/2025 9:57 AM CDT 25 mg metoprolol tartrate (LOPRESSOR) tablet 12.5 mg 12.5 mg, Tube, 2 times daily, First dose on Wed01/23/25 at 0900, Until Discontinued Given 01/23/2025 9:25 AM CDT 12.5 mg metoprolol tartrate (LOPRESSOR) tablet 25 mg 25 mg, Tube, 2 times daily, First dose (after last modification) on Wed01/23/25 at 2100, Until Discontinued Given 02/02/2025 9:33 AM CDT 25 mg Given 02/01/2025 8:11 PM CDT 25 mg Given 02/01/2025 9:07 AM CDT 25 mg midazolam (VERSED) injection Code/trauma/sedation medication, Starting on Wed01/29/25 at 0900, Until Wed01/29/25 at 0900 Given 01/29/2025 9:00 AM CDT 1 mg multi vitamin/minerals (THERA-M ENHANCED) tablet 1 tablet 1 tablet, Tube, Daily, 10 doses, First dose on Wed01/21/25 at 1830, Last dose on Wed01/30/25 at 0900 Given 01/30/2025 8:22 AM CDT 1 tablet Given 01/29/2025 2:27 PM CDT 1 tablet Given 01/28/2025 3:58 PM CDT 1 tablet oxyCODONE immediate release (ROXICODONE) tablet 5 mg 5 mg, Tube, Every 6 hours PRN, Severe pain (Scale 8 - 10), Starting on Wed01/22/25 at 1359, Until Wed02/02/25 at 1633 Given 01/28/2025 4:04 PM CDT 5 mg Given 01/24/2025 3:41 AM CDT 5 mg Given 01/23/2025 8:15 PM CDT 5 mg pantoprazole EC (PROTONIX) tablet 40 mg 40 mg, Oral, Daily, First dose on Wed01/20/25 at 0900, Until Discontinued, Do not break, chew, or crush. Given 01/22/2025 9:17 AM CDT 40 mg Given 01/20/2025 9:57 AM CDT 40 mg phosphorus (K PHOS NEUTRAL) tablet 500 mg 500 mg, Tube, Every 4 hours, 3 doses, First dose on Wed01/22/25 at 1300, Last dose on Wed01/22/25 at 2100 Given 01/22/2025 9:13 PM CDT 500 mg Given 01/22/2025 5:51 PM CDT 500 mg Given 01/22/2025 1:02 PM CDT 500 mg phosphorus (K PHOS NEUTRAL) tablet 500 mg 500 mg, Tube, Every 4 hours, 3 doses, First dose on Wed01/23/25 at 1045, Last dose on Wed01/23/25 at 1845 Given 01/23/2025 8:16 PM CDT 500 mg Given 01/23/2025 4:16 PM CDT 500 mg Given 01/23/2025 11:48 AM CDT 500 mg protein supplement (PROSOURCE) packet 1 packet 1 packet, Feeding Tube, Daily, First dose on Wed01/21/25 at 1715, Until Discontinued, Note: ProSource NoCarb is ordered from [employer] ([employer] Code: [id number]). Mix 30 mL of ProSource NoCarb Liquid Protein in 30 mL of water, stir and infuse via syringe down feeding tube. Flush feeding tube with 30 mL of water before and after administration. Directions for administration can be found on the packet. *CHECK product MANUALLY- barcode scanning not required* Given 01/30/2025 8:25 AM CDT 1 packet Given 01/29/2025 2:29 PM CDT 1 packet Given 01/28/2025 3:59 PM CDT 1 packet protein supplement (PROSOURCE) packet 1 packet 1 packet, Per G Tube, Daily, First dose (after last modification) on Wed01/31/25 at 0900, Until Discontinued, Note: ProSource NoCarb is ordered from [employer] ([employer] Code: [id number]). Mix 30 mL of ProSource NoCarb Liquid Protein in 30 mL of water, stir and infuse via syringe down feeding tube. Flush feeding tube with 30 mL of water before and after administration. Directions for administration can be found on the packet. *CHECK product MANUALLY- barcode scanning not required* Given 02/02/2025 9:35 AM CDT 1 packet Given 02/01/2025 9:07 AM CDT 1 packet Given 01/31/2025 11:46 AM CDT 1 packet scopolamine (TRANSDERM-SCOP) 1 MG/3DAYS patch 1 patch 1 patch, Transdermal, Administer over 72 Hours, Every 72 hours, First dose on Wed01/24/25 at 1700, Until Discontinued Patch Applied 01/30/2025 5:31 PM CDT 1 patch Patch Applied 01/27/2025 4:52 PM CDT 1 patch Patch Applied 01/24/2025 5:14 PM CDT 1 patch senna-docusate (SENOKOT-S) 8.6-50 MG tablet 1 tablet 1 tablet, Oral, 2 times daily, First dose on Wed01/20/25 at 0900, Until Discontinued, Hold for loose stools. Tablet may be crushed and given via TF. Given 01/22/2025 9:17 AM CDT 1 tablet Given 01/21/2025 9:23 PM CDT 1 tablet Given 01/20/2025 9:58 AM CDT 1 tablet senna-docusate (SENOKOT-S) 8.6-50 MG tablet 1 tablet 1 tablet, Tube, 2 times daily, First dose (after last modification) on Wed01/22/25 at 2100, Until Discontinued, Hold for loose stools. Tablet may be crushed and given via TF. Given 02/02/2025 9:32 AM CDT 1 tablet Given 02/01/2025 8:11 PM CDT 1 tablet Given 02/01/2025 9:07 AM CDT 1 tablet sodium chloride 0.9% infusion at 50 mL/hr, Intravenous, Continuous, Starting on 01/20/25 at 1315, Until Wed01/21/25 at 1850 Rate/Dose Change 01/21/2025 6:20 PM CDT 50 mL/hr New Bag 01/21/2025 3:48 PM CDT 100 mL/hr Rate/Dose Verify 01/21/2025 6:00 AM CDT 100 mL/ hr sodium chloride 7 % nebulizer solution 4 mL 4 mL, Nebulization, 2 times daily RT, First dose on Keisha 01/25/25 at 1245, Until Discontinued Given 02/02/2025 9: 34 AM CDT 4 mLs Given 02/01/2025 8:31 PM CDT 4 mLs Given 02/01/2025 9:07 AM CDT 4 mLs TF diabetic w/Fiber (GLUCERNA 1.2) liquid 20-65 mL/hr, Feeding Tube, Continuous, Starting on Wed01/21/25 at 1715, Until Wed01/30/25 at 1235, TF Product: Glucerna 1.2 NICOLE, [employer] Code: [id number] Continuous TF: Start at 20 mL/hr and advance by 15 mL/hr every 4 hours as tolerated to goal rate of 65 mL/hr. Please see Rinse feeding tube with H2O communication for free water flush order. *CHECK product MANUALLY- barcode scanning not required* New Bag 01/30/2025 9:51 AM CDT 20 mL/hr 20 mL/hr New Bag 01/28/2025 7:00 PM CDT 20 mL/hr 20 mL/hr Rate/Dose Change 01/26/2025 1:00 AM CDT 65 mL/hr 65 mL/h r TF diabetic w/Fiber (GLUCERNA 1.2) liquid 120-356 mL/hr, Per G Tube, 4 times daily, First dose on Wed01/30/25 at 1600, Until Discontinued, TF Product: Glucerna 1.2 NICOLE, [employer] Code: [id number] Bolus TF: Initiate bolus TF at 120 mL per feeding and advance by 60 mL every other feeding as tolerated to goal of 356 mL per feeding. Please see Rinse feeding tube with H2O communication for free water flush order. *CHECK product MANUALLY- barcode scanning not required* Given 02/02/2025 1:01 PM CDT 356 mL/hr 356 mL/hr Given 02/02/2025 9:34 AM CDT 356 mL/hr 356 mL/hr Given 02/01/2025 8:31 PM CDT 356 mL/hr 356 mL/hr vitamin B-1 (THIAMINE) tablet 100 mg 100 mg, Tube, Daily, 10 doses, First dose (after last modification) on Wed01/21/25 at 1830, Last dose on Wed01/30/25 at 0900 Given 01/30/2025 8:22 AM CDT 100 m g Given 01/29/2025 2:27 PM CDT 100 mg Given 01/28/2025 3:58 PM CDT 100 mg documented in this encounter Active and Recently Administered Medications Times are shown in CDT. Scheduled Medication Order 01/31/2025 02/01/2025 02/02/2025 aspirin chewable tablet 81 mg 81 mg, Tube, Daily, First dose (after last modification) on Wed01/23/25 at 0900, Until Discontinued 0850 (Given - Provider: Mary Gonzales LPN) 0906 (Given - Provider: Heather Fonseca, NOEMY) 0932 (Given - Provider: Shaunna Putnam, NOEMY) atorvastatin (LIPITOR) tablet 80 mg 80 mg, Tube, Nightly at bedtime, First dose (after last modification) on Wed01/22/25 at 2100, Until Discontinued 2117 (Given - Provider: Soniya Hamm RN) 2011 (Given - Provider: Loretta Fisher, NOEMY) furosemide (LASIX) tablet 40 mg 40 mg, Tube, Daily, First dose (after last modification) on Wed01/29/25 at 0900, Until Discontinued 0850 (Given - Provider: Mary Gonzales LPN) 0907 (Given - Provider: Heather Fonseca RN) 0933 (Given - Provider: Shaunna Putnam, NOEMY) heparin (porcine) injection 5,000 Units 5,000 Units, Subcutaneous, Every 12 hours scheduled (2 times per day), First dose on Wed01/26/25 at 2100, Until Discontinued 0851 (Given - Provider: Mary Gonzales LPN)2117 (Given - Provider: Soniya Hamm RN) 904 (Given - Provider: Heather Fonseca, RN)2011 (Given - Provider: Loretta Fisher, NOEMY) 932 (Given - Provider: Shaunna Putnam, NOEMY) insulin glargine (LANTUS) injection 12 Units 12 Units, Subcutaneous, Every morning, First dose on Wed01/30/25 at 1030, Until Discontinued 602 (Given - Provider: Eliezer Patrick RN) 06 (Given - Provider: Soniya Hamm, NOEMY) 06 (Given - Provider: Loretta Fisher, NOEMY) insulin glargine (LANTUS) injection 20 Units 20 Units, Subcutaneous, Nightly at bedtime, First dose (after last modification) on Wed02/01/25 at 2100, Until Discontinued 2030 (Given - Provider: Loretta Fisher, NOEMY) insulin glargine (LANTUS) injection 24 Units (CANCELED) 24 Units, Subcutaneous, Nightly at bedtime, First dose on Wed01/30/25 at 2100, Until Discontinued 2117 (Given - Provider: Soniya Hamm, NOEMY) insulin lispro (HUMALOG/ADMELOG) injection 1-18 Units (CANCELED) 1-18 Units, Subcutaneous, Every 4 hours, First dose (after last reorder) on Wed01/31/25 at 1800, Until Discontinued, Blood sugar < 70 start hypoglycemia protocol Blood sugar between 70-140 = no additional insulin Blood sugar between 140- 180= + 2 units Blood sugar between 181- 220= + 4 units Blood sugar between 221 - 260= + 6 units Blood sugar between 261 -300= + 8 units Blood sugar between 300- 340= + 10 units Call [facility] for BG < 70 or > 300 , 1736 (Given - Provider: Mary Gonzales LPN)2301 (Not Given - Provider: Soniya Hamm RN - Reason: Order parameters not met - Comment: Glucose POC 115) 0241 (Not Given - Provider: Soniya Hamm RN - Reason: Order parameters not met - Comment: Glucose POC 110)0645 (Not Given - Provider: Soniya Hamm RN - Reason: Order parameters not met)1200 (Given - Provider: Heather Fonseca RN - Comment: BG 141)1606 (Given - Provider: Pari Griffiths, NOEMY - Comment: BG 150) insulin lispro (HUMALOG/ADMELOG) injection 1-18 Units (CANCELED) 1-18 Units, Subcutaneous, 4 times daily with meals and nightly, First dose (after last modification) on Wed02/02/25 at 0800, Until Discontinued, Blood sugar < 70 start hypoglycemia protocol Blood sugar between 70-140 = no additional insulin Blood sugar between 140- 180= + 2 units Blood sugar between 181- 220= + 4 units Blood sugar between 221 - 260= + 6 units Blood sugar between 261 -300= + 8 units Blood sugar between 300- 340= + 10 units Call [facility] for BG < 70 or > 300 , 1999 (Given - Provider: Loretta Fisher RN) insulin lispro (HUMALOG/ADMELOG) injection 1-18 Units 1-18 Units, Subcutaneous, 4 times daily with meals and nightly, First dose (after last modification) on Wed02/02/25 at 0800, Until Discontinued, Blood sugar < 70 start hypoglycemia protocol Blood sugar between 70-140 = no additional insulin Blood sugar between 140- 180= + 2 units Blood sugar between 181- 220= + 4 units Blood sugar between 221 - 260= + 6 units Blood sugar between 261 -300= + 8 units Blood sugar between 300- 340= + 10 units Call [facility] for BG < 70 or > 300 , 09 (Not Given - Provider: Shaunna Putnam RN - Reason: Contraindicated)1300 (Given - Provider: Shaunna Putnam RN) insulin lispro (HUMALOG/ADMELOG) injection 12 Units 12 Units, Subcutaneous, 4 times daily with meals and nightly, First dose (after last modification) on Wed01/31/25 at 1715, Until Discontinued, Before tube feed at 800, 1200, 1600, and 2000 Please give half the dose if blood sugar is < 120 and hold the dose if TF is stopped Call [facility] if blood sugar is < 70 or > 340 , no over night call for high blood sugars thanks 1713 (Given - Provider: Mary Gonzales LPN) 0905 (Given - Provider: Heather Fonseca RN - Comment: BG 113)1159 (Given - Provider: Heather Fonseca RN - Comment: BG 141)1606 (Given - Provider: Pari Griffiths, NOEMY)2030 (Given - Provider: Loretta Fisher, NOEMY) 0933 (Given - Provider: Shaunna Putnam, RN)1300 (Given - Provider: Shaunna Putnam, RN)1600 (Canceled Entry - Provider: Automatic Discharge Provider - Comment: Automatically canceled at discontinue of medication order) insulin regular (NOVOLIN R/HUMULIN R) injection 1-20 Units (CANCELED) 1-20 Units, Subcutaneous, Every 6 hours, First dose on Wed01/30/25 at 1500, Until Discontinued, Blood sugar < 70 start hypoglycemia protocol Blood sugar between 70-140 = no additional insulin Blood sugar between 140- 180= + 2 units Blood sugar between 181- 220= + 4 units Blood sugar between 221 - 260= + 6 units Blood sugar between 261 -300= + 8 units Blood sugar between 300- 340= + 10 units Call [facility] for BG < 70 or > 300 0321 (Not Given - Provider: Eliezer Patrick RN - Reason: Order parameters not met)0857 (Given - Provider: Mary Gonzales LPN)1505 (Given - Provider: Mary Gonzales LPN) insulin regular (NOVOLIN R/HUMULIN R) injection 12 Units (CANCELED) 12 Units, Subcutaneous, Every 6 hours, First dose on Wed01/30/25 at 1500, Until Discontinued, Please give half the dose if blood sugar is < 120 and hold the dose if TF is stopped Call sc endo if blood sugar is < 70 or > 340 , no over night call for high blood sugars thanks 0322 (Not Given - Provider: Eliezer Patrick RN - Reason: Order parameters not met)0855 (Given - Provider: Mary Gonzales LPN)1503 (Given - Provider: Mary Gonzales LPN) lansoprazole (PREVACID SOLUTAB) disintegrating tablet 30 mg 30 mg, Tube, Every morning before breakfast, First dose on Wed01/23/25 at 0700, Until Discontinued, Place the 30 mg tablet in an enteral dosing syringe and draw up ~10 mL purified water; gently shake syringe. After tablet has dispersed, gently shake the syringe to keep the granules from settling and administer via feeding tube; administer mixture within 15 minutes of preparation. Following administration, refill syringe with 5 mL purified water; shake gently and administer via feeding tube. General guidance: Hold EN 30 to 60 minutes prior to lansoprazole administration. Flush feeding tube with an appropriate volume of purified water (eg, 15 mL) before administration. Following the administration process described above, flush feeding tube with an appropriate volume of purified water (eg, 20 mL) and restart EN. 0603 (Given - Provider: Eliezer Patrick RN) 0649 (Given - Provider: Soniya Hamm, RN) 0638 (Given - Provider: Loretta Fisher, NOEMY) lidocaine 4 % patch 1 patch 1 patch, Transdermal, Administer over 12 Hours, Every 24 hours, First dose on Wed01/19/25 at 2100, Until Discontinued 40 (Patch Removed - Provider: Jo Soliman RN)2120 (Patch Applied - Provider: Soniya Hamm RN) 906 (Patch Removed - Provider: Heather Fonseca RN)2010 (Patch Applied - Provider: Loretta Fisher, NOEMY) 925 (Patch Removed - Provider: Shaunna Putnam, NOEMY) lidocaine viscous (XYLOCAINE) 2 % solution 15 mL 15 mL, Mouth/Throat, Once, 1 dose, On Wed01/25/25 at 1215, Shake Well. Dilute dose in 10 mL water and rinse and spit. lisinopril (PRINIVIL) tablet 5 mg 5 mg, Tube, Daily, First dose (after last modification) on Wed01/23/25 at 0900, Until Discontinued 0850 (Given - Provider: Mary Gonzales LPN) 09 (Given - Provider: Heather Fonseca RN) 0933 (Given - Provider: Shaunna Putnam, NOEMY) metoprolol tartrate (LOPRESSOR) tablet 25 mg 25 mg, Tube, 2 times daily, First dose (after last modification) on Wed01/23/25 at 2100, Until Discontinued 0850 (Given - Provider: Mary Gonzales LPN)2117 (Given - Provider: Soniya Hamm RN) 906 (Given - Provider: Heather Fonseca RN)2010 (Given - Provider: Loretta Fisher RN) 0933 (Given - Provider: Shaunna Putnam, RN) protein supplement (PROSOURCE) packet 1 packet 1 packet, Per G Tube, Daily, First dose (after last modification) on Wed01/31/25 at 0900, Until Discontinued, Note: ProSource NoCarb is ordered from [employer] ([employer] Code: [id number]). Mix 30 mL of ProSource NoCarb Liquid Protein in 30 mL of water, stir and infuse via syringe down feeding tube. Flush feeding tube with 30 mL of water before and after administration. Directions for administration can be found on the packet. *CHECK product MANUALLY- barcode scanning not required* 1146 (Given - Provider: Mary Gonzales LPN) 09 (Given - Provider: Heather Fonseca RN) 0935 (Given - Provider: Shaunna Putnam, NOEMY) scopolamine (TRANSDERM-SCOP) 1 MG/3DAYS patch 1 patch 1 patch, Transdermal, Administer over 72 Hours, Every 72 hours, First dose on Wed01/24/25 at 1700, Until Discontinued 1433 (Due: Patch Removed - Provider: Automatic Discharge Provider - Comment: Time automatically adjusted from order being discontinued) senna-docusate (SENOKOT-S) 8.6-50 MG tablet 1 tablet 1 tablet, Tube, 2 times daily, First dose (after last modification) on Wed01/22/25 at 2100, Until Discontinued, Hold for loose stools. Tablet may be crushed and given via TF. 0850 (Given - Provider: Mary Gonzales LPN)2117 (Given - Provider: Soniay Hamm RN) 906 (Given - Provider: Heather Fnoseca, NOEMY)2010 (Given - Provider: Loretta Fisher RN) 0932 (Given - Provider: Shaunna Putnam, NOEMY) sodium chloride 7 % nebulizer solution 4 mL 4 mL, Nebulization, 2 times daily RT, First dose on Wed01/25/25 at 1245, Until Discontinued 0851 (Given - Provider: Mary Gonzales LPN)2117 (Given - Provider: Soniya Hamm RN) 906 (Given - Provider: Heather Fonseca RN)2030 (Given - Provider: Loretta Fisher, NOEMY) 0934 (Given - Provider: Shaunna Putnam, RN) TF diabetic w/Fiber (GLUCERNA 1.2) liquid 120-356 mL/hr, Per G Tube, 4 times daily, First dose on Wed01/30/25 at 1600, Until Discontinued, TF Product: Glucerna 1.2 NICOLE, [employer] Code: [id number] Bolus TF: Initiate bolus TF at 120 mL per feeding and advance by 60 mL every other feeding as tolerated to goal of 356 mL per feeding. Please see Rinse feeding tube with H2O communication for free water flush order. *CHECK product MANUALLY- barcode scanning not required* 0800 (Given - Provider: Jo Soliman RN)1156 (Given - Provider: Mary Gonzales LPN)1558 (Given - Provider: Mary Gonzales LPN)2000 (Given - Provider: Soniya Hamm RN) 0901 (Given - Provider: Heather Fonseca RN)1200 (Given - Provider: Heather Fonseca RN)1606 (Given - Provider: Pari Griffiths, NOEMY)2031 (Given - Provider: Loretta Fisher RN) 0934 (Given - Provider: Shaunna Putnam, NOEMY)1301 (Given - Provider: Shaunna Putnam RN)1600 (Canceled Entry - Provider: Automatic Discharge Provider - Comment: Automatically canceled at discontinue of medication order) PRN Medication Order 01/31/2025 02/01/2025 02/02/2025 acetaminophen (TYLENOL) 160 MG/5ML solution 650 mg(Linked Group 1) 650 mg, Tube, Every 4 hours PRN, Mild pain (Scale 1 - 3), Starting on Wed01/22/25 at 1359, Until Wed02/02/25 at 1633, Give if unable to swallow tablets/capsules or if patient prefers liquid. Maximum dose of acetaminophen is 4000 mg from all sources in 24 hours. acetaminophen (TYLENOL) suppository 650 mg(Linked Group 1) 650 mg, Rectal, Every 4 hours PRN, Mild pain (Scale 1 - 3), Starting on 01/22/25 at 1359, Until Wed02/02/25 at 1633, Give if unable to take PO. Maximum dose of acetaminophen is 4000 mg from all sources in 24 hours. acetaminophen (TYLENOL) tablet 650 mg(Linked Group 1) 650 mg, Tube, Every 4 hours PRN, Mild pain (Scale 1 - 3), Starting on Wed01/22/25 at 1359, Until Wed02/02/25 at 1633, Maximum dose of acetaminophen is 4000 mg from all sources in 24 hours. albuterol (PROVENTIL) (2.5 MG/3ML) 0.083% nebulizer solution 2.5 mg 2.5 mg, Nebulization, 2 times daily PRN, Shortness of breath, Starting on Keisha 01/25/25 at 1230, Until Wed02/02/25 at 1633, Available for use with 7% sodium chloride nebs atropine 1 % ophthalmic solution 1 drop 1 drop, Sublingual, 3 times daily PRN, secretions, Starting on Wed01/25/25 at 0940, Until Wed02/02/25 at 1633 dextrose (GLUTOSE) 40 % oral gel 37.5-75 g 37.5-75 g (15-30 g of dextrose), Oral, As needed, Low blood sugar, Starting on Wed01/29/25 at 0008, Until Wed02/02/25 at 1633, If patient is verbally responsive and taking thickened liquids or oral medications: Blood glucose less than 50 mg/dL - give 30 g of dextrose; repeat until blood glucose reaches 70 mg/dL Blood glucose 50-69 mg/dL - give 15 g of dextrose; repeat until blood glucose reaches 70 mg/dL 37.5 g of glucose gel = 15 g of dextrose dextrose 10 % bolus infusion 125-250 mL 125-250 mL, Intravenous, Administer over 15 Minutes, As needed, Low Blood Sugar, Starting on Wed01/29/25 at 0008, Until Wed02/02/25 at 1633, If patient is verbally responsive and NPO or unable to swallow: Blood glucose less than 50 mg/dL - give 250 mL (25 g) and repeat until blood glucose reaches 70 mg/dL Blood glucose 50-69 mg/dL - give 125 mL (12.5 g) and repeat until blood glucose reaches 70 mg/dL If patient is verbally Unresponsive and NPO or unable to swallow: Blood glucose less than 70 mg/dL - give 250 mL (25 g), repeat until blood glucose reaches 70 mg/dL glucagon injection 1 mg 1 mg, Intramuscular, Once as needed, Other, Low blood sugar, 1 dose, Starting on Wed01/29/25 at 0008, Until Wed02/02/25 at 1633, If patient is verbally UNresponsive and no IV access with blood glucose less than 70 mg/dL. Do NOT repeat administration. hydrALAZINE (APRESOLINE) injection 10 mg 10 mg, Intravenous, Every 6 hours PRN, Other, SBP > 160, Starting on Wed01/23/25 at 1628, Until Wed02/02/25 at 1633, Monitor HR and BP before dose and 15 min after IV dose. For IV push give over 1-2 minutes=5mg/min. HYDROcodone-acetaminophen (NORCO) 5-325 MG tablet 1 tablet 1 tablet, Tube, Every 6 hours PRN, Moderate pain (Scale 4 - 7), Starting on Wed01/22/25 at 1359, Until Wed02/02/25 at 1633, Maximum dose of acetaminophen is 4000 mg from all sources in 24 hours. labetalol (TRANDATE) injection 20 mg 20 mg, Intravenous, Every 6 hours PRN, High blood pressure, SBP>160, Starting on Wed01/23/25 at 0206, Until Wed02/02/25 at 1633, Bolus may be administered by IV push at a rate of 10 mg/min. Monitor HR and BP prior to admin, 15 and 30 minutes post administration. Do not give if SBP <100mm or HR <55. Patient to stay supine during and for 30 minutes after IV administration due to potential for orthostatic hypotension. naLOXone (NARCAN) injection 0.4 mg 0.4 mg, Intravenous, As needed, Opioid reversal, Starting on Wed01/19/25 at 1938, Until Wed02/02/25 at 1633, IM administration: Anterolateral aspect of thigh ondansetron (ZOFRAN) injection 4 mg 4 mg, Intravenous, Every 8 hours PRN, Nausea, Vomiting, Starting on Wed01/19/25 at 1938, Until Wed02/02/25 at 1633, Use PRN antiemetics in this order to achieve relief of nausea and/or vomiting: Ondansetron first followed by Metoclopramide oxyCODONE immediate release (ROXICODONE) tablet 5 mg 5 mg, Tube, Every 6 hours PRN, Severe pain (Scale 8 - 10), Starting on Wed01/22/25 at 1359, Until Wed02/02/25 at 1633 Linked Groups Order Group 1: acetaminophen (TYLENOL) tablet 650 mgJump to med 650 mg, Tube, Every 4 hours PRN, Mild pain (Scale 1 - 3), Starting on Wed01/22/25 at 1359, Until Wed02/02/25 at 1633, Maximum dose of acetaminophen is 4000 mg from all sources in 24 hours. Or acetaminophen (TYLENOL) suppository 650 mgJump to med 650 mg, Rectal, Every 4 hours PRN, Mild pain (Scale 1 - 3), Starting on Wed01/22/25 at 1359, Until Wed02/02/25 at 1633, Give if unable to take PO. Maximum dose of acetaminophen is 4000 mg from all sources in 24 hours. Or acetaminophen (TYLENOL) 160 MG/5ML solution 650 mgJump to med 650 mg, Tube, Every 4 hours PRN, Mild pain (Scale 1 - 3), Starting on Wed01/22/25 at 1359, Until Wed02/02/25 at 1633, Give if unable to swallow tablets/capsules or if patient prefers liquid. Maximum dose of acetaminophen is 4000 mg from all sources in 24 hours. 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
--- OUTSIDE RECORDS SUMMARY | 2025-02-03 15:01 | XMS_ITS | Encounter Summary ---
Author Organization [facility] Address [facility] [place] [address] Care Team Providers Care Tuft Machine Operator Name Role Phone Adolfo Koo MD Unavailable [phone] Jered Solis MD Primary Care Provider [phone] Nicole Garcia Primary Care Provider [phone] Encounter Details Date Type Department Care Team (Late Contact Info) Description 04/15/2018 Abstract [facility] at [address] [address] Klarissa Balderrama, A Social History Tobacco Use Types Packs/Day Years Used Date Smoking Tobacco: Never Smokeless Tobacco: Never Alcohol Use Standard Drinks/Week Comments Yes 0 (1 standard drink = 0.6 oz pur e alcohol) 6 week Sex and Gender Information Value Date Recorded Sex Assigned at Male 01/19/2025 7:45 PM CDT Legal Sex Male 5:01 PM CDT Gender Identity Not on file Sexual Orientation Not on file 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 Not on file Not on file documented as of this encounter Plan of Treatment Upcoming Encounters Date Type Department Care Team (Late Contact Info) Description 02/08/2025 9:00 AM CDT Office Visit [facility] - [address] [place] [address] Devan Henderson, LOU [address] [place], [place] [id number] 04/03/2025 10:20 AM CDT Office Visit [facility] [address] [facility] [place] [address] Nicole Garcia, [facility] [address] [place] [address] 05/11/2025 10:00 AM CDT Office Visit [facility] [address] [place] [address] Sorin Ram MD [address] [facility] [address] [address] documented as of this encounter Procedures Procedure Name Priority Date/Time Associated Diagnosis Comments HEMOGLOBIN, GLYCOSYLATED Routine 03/02/2018 BASIC METABOLIC PANEL Routine 03/02/2018 LIPID PANEL Routine 03/02/2018 documented in this encounter Results * HEMOGLOBIN, GLYCOSYLATED (03/02/2018) HGB A1C 8.2 03/02/2018 [facility] Final Result * LIPID PANEL (03/02/2018) CHOLESTEROL 171 HDL 46 TRIGLYCERIDES 185 LDL (CALCULATED) 88 03/02/2018 [facility] Final Result * BASIC METABOLIC PANEL (03/02/2018) SODIUM S/P/B 137 POTASSIUM S/P/B 4.6 CO2 28 CHLORIDE S/P/B 101 GLUCOSE 158 mg/dL CALCIUM S/P/B 9.4 BUN 17 CREATININE S/P/B 1.2 0.7 - 1.3 EGFR AFR. AMER. 79 EGFR NON-AFR. AMER. 65 <=90 03/02/2018 [facility] Final Result documented in this encounter Visit Diagnoses Not on filedocumented in this encounter Additional Health Concerns Infection Onset Date Last Indicated Resolved Time COVID-19 Rule Out 04/21/2022 04/21/2022 04/28/2022 12:32 AM CDT documented as of this encounter Care Teams Tuft Machine Operator Relationship Specialty Start Date End Date Jered Solis MD [address] [place] [address] PCP - General FAMILY PRACTICE 04/06/18 02/27/20 Nicole Garcia FNP [address] [place] [place] [address] PCP - General Nurse Practitioner Family 02/28/20 02/01/25 Adolfo Koo MD [facility]. 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
--- OUTSIDE RECORDS SUMMARY | 2025-02-03 15:01 | XMS_ITS | Clinical Summary ---
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 100 each 3 03/31/20 23 Active Glucose Blood (ONETOUCH ULTRA) test stripIndications:U ncontrolled type 2 diabetes mellitus with hyperglycemia ([facility] HHS/HCC) Use as instructed -- Test blood sugar BID and PRN DX: E11.65 200 strip 3 08/26/20 23 Active metFORMIN (GLUCOPHAGE) 1000 MG tabletIndications: Uncontrolled type 2 diabetes mellitus with hyperglycemia ([facility] HHS/HCC) BID 180 tablet 3 09/13/20 23 Active glimepiride (AMARYL) 2 MG tablet Take 1 tablet (2 mg total) by mouth every morning before breakfast. 03/07/20 24 Active pioglitazone (ACTOS) 30 MG tablet Take 1 tablet (30 mg total) by mouth daily. 02/07/20 24 Active aspirin EC (ECOTRIN) 81 MG tabletIndications: Coronary artery disease involving cocopah coronary artery of cocopah heart without angina pectoris,S/P CABG x 4 Take 1 tablet (81 mg total) by mouth daily. 90 tablet 3 06/01/20 24 Active pantoprazole EC (PROTONIX) 40 MG tabletIndications: Gastroesophageal reflux disease, unspecified whether esophagitis present take 1 tablet by mouth every day 90 tablet 1 06/06/20 24 Active atorvastatin (LIPITOR) 40 MG tabletIndications: Uncontrolled type 2 diabetes mellitus with hyperglycemia ([facility] HHS/HCC) Take 1 tablet (40 mg total) by mouth every other day. 45 tablet 1 11/01/19 25 Active lisinopril (PRINIVIL) 5 MG tabletIndications: Essential hypertension,Micro albuminuria Take 1 tablet (5 mg total) by mouth daily. 90 tablet 1 11/01/19 25 Active metoprolol succinate ER (TOPROL-XL) 25 MG 24 hr tabletIndications: Essential hypertension Take 1 tablet (25 mg total) by mouth daily. 90 tablet 1 11/01/19 25 Active silver sulfADIAZINE (SILVADENE) 1 % creamIndications:P VD (peripheral vascular disease),Periphera l polyneuropathy,Brook betic ulcer of midfoot associated with type 1 diabetes mellitus, unspecified laterality, unspecified ulcer stage ([facility] HHS/HCC) Apply topically 2 (two) times daily. 25 g 3 12/14/19 25 Active furosemide (LASIX) 40 MG tablet 1 tablet (40 mg total) by Per G Tube route daily for 60 days. 30 tablet 1 02/04/20 25 025 Active HYDROcodone-acetam inophen (NORCO) 5-325 MG tabletIndications: Acute Pain < 7 Day Supply 1 tablet by Per G Tube route every 6 (six) hours as needed. Indications: Acute Pain < 7 Day Supply 21 tablet 02/03/20 25 025 Active insulin glargine (LANTUS) 100 UNIT/ML injection (VIAL) Inject 12 Units into the skin every morning for 60 days. 3.6 mL 1 02/04/20 25 025 Active insulin glargine (LANTUS) 100 UNIT/ML injection (VIAL) Inject 20 Units into the skin nightly at bedtime for 60 days. 6 mL 1 02/03/20 25 025 Active insulin lispro (HUMALOG/ADMELOG) 100 UNIT/ML injection (VIAL) Inject 1-18 Units into the skin 3 (three) times daily before meals. 100 mL 02/03/20 25 Active insulin lispro (HUMALOG/ADMELOG) 100 UNIT/ML injection (VIAL) Inject 12 Units into the skin 4 (four) times daily with meals and nightly. 14.4 mL 1 02/03/20 25 025 Active lansoprazole (PREVACID SOLUTAB) 30 MG disintegrating tablet 1 tablet (30 mg total) by Per G Tube route every morning before breakfast for 60 days. 30 tablet 1 02/04/20 25 025 Active lidocaine 4 % patch Place 1 patch onto the skin daily. Remove & Discard patch within 12 hours or as directed by 30 patch 02/03/20 25 Active metoprolol tartrate (LOPRESSOR) 25 MG tablet 1 tablet (25 mg total) by Per G Tube route 2 (two) times daily for 60 days. 60 tablet 1 02/03/20 25 025 Active protein supplement (PROSOURCE) Liquid 1 packet by Per G Tube route daily for 60 days. 60 packet 02/04/20 25 025 Active TF diabetic w/Fiber (GLUCERNA 1.2) Liquid 120-356 mL/hr by Per G Tube route 4 (four) times daily. 100 mL 1 02/03/20 25 Active scopolamine (TRANSDERM-SCOP) 1 MG/3DAYS patch Place 1 patch onto the skin every third day for 60 days. 10 patch 1 02/03/20 25 025 Active insulin lispro, 1 Unit Dial, (HUMALOG) 100 UNIT/ML injection (PEN) Inject 8-14 Units into the skin 2 (two) times daily. 01/19/20 24 025 Discontin ued(Stop Taking at Discharge ) Active Problems Problem Noted Date Diagnosed Date Fall 01/21/2025 Acute embolic stroke ([facility]) Closed C2 fracture ([facility]) 01/19/2025 Uncontrolled type 2 diabetes mellitus with hyperglycemia ([facility]) 01/26/2024 Stage 3a chronic kidney disease 03/31/2023 COVID-19 vaccination declined 12/24/2021 Non-rheumatic mitral regurgitation 05/04/2019 Benign essential HTN 07/26/2018 Microalbuminuria 08/10/2017 Overview (10/03/2018): Date Onset: 08/10/2017 Coronary artery disease invo lving cocopah coronary artery of cocopah heart without angina pectoris Hyperlipidemia S/P CABG x 4 Resolved Problems Problem Noted Date Diagnosed Date Resolved Date Diabetic ketoacidosis withou t coma associated with diabetes mellitus due to underlying condition ([facility]) 03/19/2023 01/26/2024 DKA (diabetic ketoacidosis) ([facility]) 03/19/20 23 06/02/2023 Noncompliance with medication regimen 12/24/2021 11/01/2024 Acute myocardial infarction ([facility]) 07/11/20 18 05/15/2020 Overview (10/03/2018): Date Onset: 07/11/2018 Situational stress 06/13/2015 Overview (10/03/2018): Date Onset: 06/13/2015 Eustachian tube dysfunction 06/13/2015 03/04/2021 Overview (03/04/2021): Date Onset: 06/13/2015 Closed fracture of distal end of fibula 05/18/2013 03/04/2021 Overview (03/04/2021): Date Onset: 05/18/2013 Chest pain 05/15/2020 Encounters Date Type Department Care Team Description 01/25/2025 Telephone [facility] [address] [place] [address] Sorin Ram MD Holter Monitor; Appointment Request 01/19/2025 7:05 PM CDT - 02/02/2025 2:33 PM CDT Hospital Encounter [facility] [address] [place] [address] Pio Brown MD Steele, Alecia N, Romulo Najera MD Johnston, Amanda J, DO Gowda, Chetan N, MD Jabeen, MD Edita Singh Ashish, MD Markapuram, Srikanth, MD Lin, Ludwig Sosa MD Trauma Discharge Disposition: [facility] 01/19/2025 Travel 01/11/2025 9:00 AM CDT Office Visit [facility] [address], [address] [place] [address] Devan Henderson DPM Foot Ulcer (Pt is here for a 1 mo f/u on a Rt foot ulcer. He states it is looking good. It has a lot of new flesh and is a little red from the cream he has been using. 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 [address], [address] [place] [address] Devan Henderson DPM Foot Ulcer ( f/u on a Rt foot ulcer. Pt states the ulcer is still there. He needs more silvadene cream. He is running really low. Blood sugar was around 200./When pt took his socks and shoes off his Lt 3rd toe was bloody. He was ask about it and he said he was clipping his nails and got to close./JRR) 12/14/2024 Travel from Last 3 Months Immunizations Name Administration Dates Next Due Influenza Adult (Generic) 08/09/2018 Tdap (Boostrix) 03/30/2019 Tdap (Historical Only-select from magnify glass) 03/30/2019 Family History Medical History Relation Comments Diabetes Brother Diabetes Maternal Uncle Diabetes Sister Hypertension Son Relation Status Comments Brother Alive Daughter Alive Father (Age 92) Maternal Uncle Mother (Age 54) Sister Son Alive Social History Tobacco Use Types Packs/Day Years Used Date Smoking Tobacco: Former Cigarettes 1 969 - 1969 Smokeless Tobacco: Never Tobacco Cessation:Counseling Given: No Alcohol Use Standard Drinks/Week Comments Not Currently 0 (1 standard drink = 0.6 oz pur e alcohol) quit before 2021 [facility] Utilities Answer Date Recorded In the past 12 months has th e [employer], gas, oil, or water [employer] threatened to shut off services in your [...] place to sleep or slept in a group home (including now)? No 03/19/2023 Housing Stability Vital Sign Answer Ru e Recorded In the last 12 months, was t here a time when you were not able to pay the mortgage or rent on time? No 01/21/2025 In the past 12 months, how m any times have you moved where you were living? 0 01/21/2025 At any time in the past 12 m [facility], were you homeless or living in a group home (including now)? 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 - [address] [place] [phone] Devan Henderson, DPM [address] [place] [address] 04/03/2025 10:20 AM CDT Office Visit [place] [address] [place] [address] Nicole Garcia FNP [facility] [place] [address] 05/11/2025 10:00 AM CDT Office Visit [facility] [address] [place] [phone] Sorin Ram MD [address] [facility] [address], [place] [address] Health Maintenance Due Date Last Done Comments Pneumococcal Vaccine: 65+ Years (1 of 2 - PCV) 1962 Diabetes: Retinopathy Eye Exam 1974 Zoster Vaccines (1 of 2) 2006 RSV Immunization or 60+ Years (1 - Risk 60-74 years 1-dose series) 2016 Annual Medicare Wellness Visit 2021 Hemoglobin A1C 04/21/2025 01/19/2025, 04/24, 03/31/2023, Additional history exists Kidney Health Evaluation 05/03/2025 Pos tponed from 1956 (Future Appointment) Lipid Panel 01/21/2026 01/21/2025, 04/2023, 03/19/2023, Additional history exists DTaP, Tdap and Td Vaccines (3 - Td or Tdap) 03/30/2029 03/30/2019, 03/30/2019 Colorectal Cancer Screening Colonoscopy (10 Years) 06/15/2032 06/15/2022 Hepatitis C 06/17/2052 Postponed from 1974 (Patient Refused) COVID-19 Vaccine ( - 2023- season) 2055 Postponed from 06/25/2024 (Patient Refused) PHQ-2 (Physician [place]) Completed 11/01/2024 AAA SCREENING Completed 01/19/2025, 11/25, 03/20/2023, Additional history exists Meningococcal B Vaccine Aged Out No l onger eligible based on patient's age to complete this topic Meningococcal Vaccine Aged Out No geovanna jennifer eligible based on patient's age to complete this topic RSV Immunizations Under 20 Months Aged Out No longer eligible based on patient's age to complete this topic Medical Devices 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 [employer] Device Identifier Shelf Expiration Date Model / Serial / Lot Sternal Wires Implanted:Qty: 1 on 05/09/2018 by Daily, Manish Dos Santos MD at [facility] N/A: Chest [employer] 01/23/2023 [id number] / / [id number] Description:WIRES X 6 Sternal Wires Implanted:Qty: 1 on 05/09/2018 by Manish Pacheco MD at [facility] N/A: Chest [employer] 01/23/2023 [id number] / / [id number] Description:STERNAL WIRES X 1 Procedures Procedure Name Priority Date/Time Associated Diagnosis [...] DOCKED DEVICE Routine 01/29/2025 8:09 AM CDT MAGNESIUM Routine 01/29/2025 7:04 AM CDT PHOSPHORUS, INORGANIC PHOSPHATE Routine 01/29/2025 7:04 AM CDT BASIC METABOLIC PANEL Routine 01/29/2025 7:04 AM CDT PROTHROMBIN TIME, VENOUS Routine 01/29/2025 7:04 AM CDT CBC W/DIFF AUTOMATED TIMED 01/29/2025 7:04 AM CDT POCT GLUCOSE - [...] DOCKED DEVICE Routine 01/27/2025 3:54 AM CDT PHOSPHORUS, INORGANIC PHOSPHATE Routine 01/27/2025 2:10 AM CDT MAGNESIUM Routine 01/27/2025 2:10 AM CDT BASIC METABOLIC PANEL Routine 01/27/2025 2:10 AM CDT CBC W/DIFF AUTOMATED Routine 01/27/2025 2:10 AM CDT POCT GLUCOSE [...] METABOLIC PANEL Routine 01/26/2025 1:56 AM CDT PHOSPHORUS, INORGANIC PHOSPHATE Routine 01/26/2025 1:56 AM CDT MAGNESIUM Routine 01/26/2025 1:56 AM CDT CBC W/DIFF AUTOMATED Routine 01/26/2025 1:56 AM CDT POCT GLUCOSE [...] DOCKED DEVICE Routine 01/25/2025 4:03 AM CDT PHOSPHORUS, INORGANIC PHOSPHATE Routine 01/25/2025 1:44 AM CDT MAGNESIUM Routine 01/25/2025 1:44 AM CDT BASIC METABOLIC PANEL Routine 01/25/2025 1:44 AM CDT CBC W/DIFF AUTOMATED Routine 01/25/2025 1:44 AM CDT POCT GLUCOSE [...] DOCKED DEVICE Routine 01/24/2025 9:45 AM CDT PHOSPHORUS, INORGANIC PHOSPHATE TIMED 01/24/2025 7:05 AM CDT MAGNESIUM TIMED 01/24/2025 7:05 AM CDT CBC W/DIFF AUTOMATED TIMED 01/24/2025 7:05 AM CDT POCT GLUCOSE - [place]MON[place] DOCKED DEVICE Routine 01/24/2025 4:25 AM CDT BASIC METABOLIC PANEL STAT 01/24/2025 1:26 AM CDT POCT GLUCOSE - [place]MON[place] DOCKED DEVICE Routine 01/24/2025 12:27 AM CDT POCT GLUCOSE - [place] DOCKED DEVICE Routine 01/23/2025 5:51 PM CDT POCT GLUCOSE - [place]MOND DOCKED DEVICE Routine 01/23/2025 12:48 PM CDT PHOSPHORUS, INORGANIC PHOSPHATE TIMED 01/23/2025 8:39 AM CDT MAGNESIUM TIMED 01/23/2025 8:39 AM CDT BASIC METABOLIC PANEL TIMED 01/23/2025 8:39 AM CDT CBC W/DIFF AUTOMATED TIMED 01/23/2025 8:39 AM CDT POCT GLUCOSE [...] DOCKED DEVICE Routine 01/22/2025 6:14 AM CDT PHOSPHORUS, INORGANIC PHOSPHATE TIMED 01/22/2025 6:11 AM CDT MAGNESIUM TIMED 01/22/2025 6:11 AM CDT BASIC METABOLIC PANEL TIMED 01/22/2025 6:11 AM CDT CBC W/DIFF AUTOMATED TIMED 01/22/2025 6:11 AM CDT POCT GLUCOSE - REDMOND DOCKED DEVICE Routine 01/21/2025 6:14 PM CDT XR FEEDING TUBE PLCMENT Today 01/22/20 2:55 PM CDT POCT GLUCOSE - REDMOND DOCKED DEVICE Routine 01/21/2025 1:49 PM CDT USE ECHOCARDIOGRAM STAT 01/21/2025 12 :22 PM CDT POCT GLUCOSE - REDMOND DOCKED DEVICE Routine 01/21/2025 5:44 AM CDT PHOSPHORUS, INORGANIC PHOSPHATE Routine 01/21/2025 3:40 AM CDT MAGNESIUM Routine 01/21/2025 3:40 AM CDT BASIC METABOLIC PANEL Routine 01/21/2025 3:40 AM CDT CBC W/DIFF AUTOMATED Routine 01/21/2025 3:40 AM CDT LIPID PANEL Routine 01/21/2025 3:40 AM CDT POCT GLUCOSE - REDMOND DOCKED DEVICE Routine 01/20/2025 8:30 PM CDT POCT GLUCOSE - REDMOND DOCKED DEVICE Routine 01/20/2025 5:34 PM CDT MRI CERV SPINE WO CON Today 01/20/2025 5:10 PM CDT MRI BRAIN WO CON Today 01/20/2025 4:58 PM CDT POCT GLUCOSE - REDMOND DOCKED DEVICE Routine 01/20/2025 12:[address] HEAD WO CON STAT 01/20/2025 11:35 AM CDT CTA HEAD+NECK STAT 01/20/2025 11:35 AM CDT ECG 12-LEAD STAT 01/20/2025 11:26 AM CDT FIBRINOGEN STAT 01/20/2025 11:24 AM CDT D-DIMER, QUANTITATIVE STAT 01/20/2025 11:24 AM CDT TROPONIN, QUANT STAT 01/20/2025 11:24 AM CDT PARTIAL THROMBOPLASTIN TIME,PTT STAT 01/20/2025 11:24 AM CDT PROTHROMBIN TIME, VENOUS STAT 01/20/2025 11:24 AM CDT COMPREHENSIVE METABOLIC PANEL STAT 01/20/2025 11:24 AM CDT CBC W/DIFF AUTOMATED STAT 01/20/2025 11:24 AM CDT CKMB(MB FRACTION ONLY) Routine 11:22 AM CDT CK (CPK) Routine 01/20/2025 11:22 AM CDT POCT GLUCOSE - REDMOND DOCKED DEVICE Routine 01/20/2025 11:13 AM CDT POCT GLUCOSE - REDMOND DOCKED DEVICE Routine 01/20/2025 6:17 AM CDT POCT GLUCOSE - REDMOND DOCKED DEVICE Routine 01/20/2025 5:56 AM CDT CBC W/DIFF AUTOMATED Routine 01/20/2025 2:35 AM CDT PHOSPHORUS, INORGANIC PHOSPHATE Routine 01/20/2025 2:35 AM CDT MAGNESIUM Routine 01/20/2025 2:35 AM CDT BASIC METABOLIC PANEL Routine 01/20/2025 2:35 AM CDT POCT GLUCOSE - REDMODN DOCKED DEVICE Routine 01/20/2025 12:47 AM CDT XR CERV SPINE LAT 1V Today 01/19/2025 10:10 PM CDT HEMOGLOBIN, GLYCOSYLATED STAT 01/19/2025 8:58 PM CDT POCT GLUCOSE - REDMOND DOCKED DEVICE Routine 01/19/2025 8:[address] CHEST+ABD+PEL W CON STAT 8:21 PM CDT CTA NECK STAT 01/19/2025 8:21 PM CDT POCT GLUCOSE - REDMOND DOCKED DEVICE Routine 01/19/2025 7:17 PM CDT from Last 3 Months Results * (ABNORMAL) POCT glucose (02/02/2025 11:10 AM CDT) Only the most recent of88 resultswithin the time period is included. GLUCOSE POC 177(H) 70 - 109 02/02/2025 11:[address] [facility] 02/02/2025 11:1 0 AM CDT us Ludwig Saucedo MD POCT ORDERABLES - DEVICE Final R esult [facility] [address] [place] [address], [id number] * XR SPEECH SWALLOW SJS ONLY (02/02/2025 9:26 AM CDT) Anatomical Region Laterality Modality NA Fluoroscopy 02/02/2025 4:34 PM CDT Impressions 02/02/2025 4:36 PM CDT IMPRESSION: 1. See dedicated speech pathologist report report for results and recommendations. 2. Swallow as above Ordered By: LUDWIG SAUCEDO Interpreted By: Alfie Davey MD, 02/02/2025 4:34 PM Narrative 02/02/2025 4:36 PM [address] [address] Examination: XR SPEECH SWALLOW SJS ONLY Exam [...] via a cup demonstrated penetration without aspiration. Bernie barium via a spoon demonstrated penetration to the cords. No scooby aspiration identified. Procedure Note Alfie Davey MD - 02/02/[address] [address] Examination: XR SPEECH SWALLOW SJS ONLY Exam [...] barium via a cup demonstrated penetrationwithout aspiration. Bernie barium via a spoon demonstrated penetration tothe cords. No scooby aspiration identified. IMPRESSION: 1. See dedicated speech pathologist report report for results andrecommendations. 2. Swallow as above Ordered By: LUDWIG SAUCEDO Interpreted By: Alfie Davey MD, 02/02/2025 4:34 PM Ludwig Saucedo MD FLUOROSCOPY Final Result * HEMOGLOBIN AND HEMATOCRIT (01/30/2025 1:19 PM CDT) HGB 12.2 12.0 - 16.0 G/DL 01/30/2025 1:27 PM CDT [facility] HCT 38.3 37.0 - 52.0 % 01/30/2025 1:27 PM CDT [facility] 01/30/2025 1:19 PM CDT Velvet Poole MD LABORATORY Final Resu lt [facility] [address] [place] [address], [id number] * (ABNORMAL) BMP WITHOUT GLUCOSE (01/30/2025 3:10 AM CDT) SODIUM S/P/B 140 136 - 145 MMOL/L 01/30/2025 3:45 AM CDT [facility] POTASSIUM S/P/B 4.1 3.5 - 5.1 MMOL/L 01/30/2025 3:45 AM CDT [facility] CHLORIDE S/P/B 106 97 - 115 MMOL/L 01/30/2025 3:45 AM CDT [facility] CO2 31.8 21.0 - 32.0 MMOL/L 01/30/2025 3:45 AM CDT [facility] BUN 23(H) 7 - 18 MG/DL 01/30/2025 3:45 AM CDT [facility] CREATININE S/P/B 1.19 0.70 - 1.30 MG/DL 01/30/2025 3:45 AM CDT [facility] CALCIUM S/P/B 9.2 8.5 - 10.1 MG/DL 01/30/2025 3:45 AM CDT [facility] ANION GAP 2.2 2.0 - 10.0 MMOL/L 01/30/2025 3:45 AM CDT [facility] GFR ESTIMATE 67(L) >90 ML/MIN/1. 73 M2 01/30/2025 3:45 AM CDT [facility] GFR NOTES GFR REFERENCE S: 01/30/2025 3:45 AM CDT [facility] Comment: THE ESTIMATED GFR IS CALCULATED [...] <15 ml/min/1.73 m2 01/30/2025 3:10 AM CDT Ludwig Saucedo MD LABORATORY Final Result [facility] [address] [place] [address], [id number] * IR PERC HUI CATH PLCMNT (01/29/2025 [...] care! Ordered By: NAYA GONZALEZ Interpreted By: Velvet Baker MD, 01/29/2025 10:18 AM Narrative 01/29/2025 11:24 AM CDT [place] [address] IR IMAGE GUIDED PERCUTANEOUS GASTROSTOMY TUBE PLACEMENT HISTORY: 69-year-old male with recent CVA, cervical trauma, dysphagia. IR was consulted for image guided gastrostomy tube placement. COMPARISON: CT chest abdomen and pelvis, 10/21/2025. INTERVENTIONALISTS: STAFF: Velvet Baker M.D Archaeologist: SMITA Garza. CONSENT: The risks, benefits and alternatives to the procedure were explained and informed consent was obtained (by patient's son). Just before beginning the procedure, Dr. Baker conducted a *time out* to verify the patient identity and the site and nature of the procedure to be performed. ANESTHESIA: Local anesthesia. 1% local lidocaine. Under Velvet Baker MD supervision, midazolam and fentanyl were administered intravenously for moderate sedation. Pulse oximetry, heart rate, and blood pressure were continuously monitored by an independent trained observer (interventional radiology nurse). The IR nurse only role during the procedure was to monitor vital signs and administer moderate sedation medications. Total [id number]-rm-[id number] sedation time was 20 minutes. The attending [...] images were sent to PACS. Procedure Note Velvet Baker MD - 01/29/[address] [address] IR IMAGE GUIDED PERCUTANEOUS GASTROSTOMY TUBE PLACEMENT HISTORY: 69-year-old male with recent CVA, cervical trauma, dysphagia. IR was consulted for image guided gastrostomy tube placement. COMPARISON: CT chest abdomen and pelvis, 10/21/2025. INTERVENTIONALISTS: STAFF: Velvet Baker M.D Archaeologist: SMITA Garza. CONSENT: The risks, benefits and alternatives to the procedure were explained andinformed consent was obtained (by patient's son). Just before beginningthe procedure, Dr. Baker conducted a *time out* to verify the patientidentity and the site and nature of the procedure to be performed. ANESTHESIA: Local anesthesia. 1% local lidocaine. Under Velvet Baker MD supervision, midazolam and fentanyl wereadministered intravenously for moderate sedation. Pulse oximetry, heartrate, and blood pressure were continuously monitored by an independenttrained observer (interventional radiology nurse). The IR nurse only roleduring the procedure was to monitor vital signs and administer moderatesedation medications. Total [id number]-vc-grhd sedation time was 20 minutes.The attending physician [...] care! Ordered By: NAYA GONZALEZ Interpreted By: Velvet Baker MD, 01/29/2025 10:18 AM us Naya Gonzalez MD INTERVENTIONAL RADIOLOGY Fin al Result * (ABNORMAL) PROTIME/INR, VENOUS (PROTHROMBIN TIME) (01/29/2025 7:04 AM CDT) Only the most recent of2 resultswithin the time period is included. PROTIME 13.6(H) 9.4 - 12.5 SEC 01/29/2025 7:31 AM CDT [facility] INR 1.2(H) 0.8 - 1.1 01/29/2025 7:31 AM CDT [facility] 01/29/2025 7:04 AM CDT us Jluis Blum MD LABORATORY Final Result [facility] [address] [place] [address], [id number] * (ABNORMAL) BASIC METABOLIC PANEL (01/29/2025 7:04 AM CDT) Only the most recent of8 resultswithin the time period is included. SODIUM S/P/B 141 136 - 145 MMOL/L 01/29/2025 7:39 AM CDT [facility] POTASSIUM S/P/B 3.6 3.5 - 5.1 MMOL/L 01/29/2025 7:39 AM CDT [facility] CHLORIDE S/P/B 104 97 - 115 MMOL/L 01/29/2025 7:39 AM CDT [facility] CO2 34.3(H) 21.0 - 32.0 MMOL/L 01/29/2025 7:39 AM CDT [facility] GLUCOSE 173(H) 74 - 106 MG/DL 01/29/2025 7:39 AM CDT [facility] BUN 24(H) 7 - 18 MG/DL 01/29/2025 7:39 AM CDT [facility] CREATININE S/P/B 1.15 0.70 - 1.30 MG/DL 01/29/2025 7:39 AM CDT [facility] CALCIUM S/P/B 9.6 8.5 - 10.1 MG/DL 01/29/2025 7:39 AM CDT [facility] ANION GAP 2.7 2.0 - 10.0 MMOL/L 01/29/2025 7:39 AM CDT [facility] OSMOLALITY (CALC) 300 MOSM/KG 025 7:39 AM CDT [facility] Comment:REFERENCE RANGE NOT ESTABLISHED GFR ESTIMATE 69(L) >90 ML/MIN/1. 73 M2 01/29/2025 7:39 AM CDT [facility] GFR NOTES GFR REFERENCE S: 01/29/2025 7:39 AM T [facility] Comment: THE ESTIMATED GFR IS CALCULATED [...] CDT Devonte Kohler MD LABORATORY Final Result [facility] [address] [place] [address], [id number] * (ABNORMAL) CBC W/DIFF AUTOMATED (01/29/2025 7:04 AM CDT) Only the most recent of10 resultswithin the time period is included. WBC 8.33 4.00 - 10.80 x10'3/uL 01/29/2025 7:22 AM CDT [facility] RBC 4.73 4.50 - 6.10 x10'6/uL 01/29/2025 7:22 AM CDT [facility] HGB 14.2 12.0 - 16.0 G/DL 01/29/2025 7:22 AM CDT [facility] HCT 43.7 37.0 - 52.0 % 01/29/2025 7:22 AM CDT [facility] MCV 92.4 78.0 - 100.0 FL 01/29/2025 7:22 AM CDT [facility] MCH 30.0 27.0 - 31.0 PG 01/29/2025 7:22 AM CDT [facility] MCHC 32.5(L) 33.0 - 36.0 G/DL 01/29/2025 7:22 AM CDT [facility] RDW 12.7 11.5 - 14.5 % 01/29/2025 7:22 AM CDT [facility] PLT 217 150 - 350 x10'3/uL 01/29/2025 7:22 AM CDT [facility] MPV 9.9 7.4 - 10.4 FL 01/29/2025 7:22 AM CDT [facility] DIFFERENTIAL TYPE AUTOMATED DIFFERENTIAL 01/29/2025 7:22 AM CDT [facility] SEG NEUTROPHILS 79.1 % 7:22 AM CDT [facility] LYMPHOCYTES 10.4 % 01/29/2025 7:22 AM CDT [facility] MONOCYTES 9.2 % 01/29/2025 7:22 AM CDT [facility] EOSINOPHILS 0.4 % 01/29/2025 7:22 AM CDT [facility] BASOPHILS 0.4 % 01/29/2025 7:22 AM CDT [facility] IMMATURE GRANS % 0.5 % 01/30/20 7:22 AM CDT [facility] ABS. NEUTROPHILS 6.59 1.60 - 8.30 x10'3/uL 01/29/2025 7:22 AM CDT [facility] ABS. LYMPHOCYTES 0.87 0.80 - 4.70 x10'3/uL 01/29/2025 7:22 AM CDT [facility] ABS. MONOCYTES 0.77 0.00 - 1.50 x10'3/uL 01/29/2025 7:22 AM CDT [facility] ABS. EOSINOPHILS 0.03 0.00 - 0.40 x10'3/uL 01/29/2025 7:22 AM CDT [facility] ABS. BASOPHILS 0.03 0.00 - 0.20 x10'3/uL 01/29/2025 7:22 AM CDT [facility] ABS. IMMATURE GRANULOCYTES 0.04(H) 0.00 - 0.03 x10'3/uL 01/29/2025 7:22 AM CDT [facility] ABS. NUCLEATED RBC'S 0.00 0.00 - 0.01 x10'3/uL 01/29/2025 7:22 AM CDT [facility] NRBC % 0.0 % 01/29/2025 7:22 AM CDT [facility] 01/29/2025 7:04 AM CDT Jluis Blum MD LABORATORY Final Result [facility] [address] [place] [address], [id number] * PHOSPHORUS, INORGANIC PHOSPHATE (01/29/2025 7:04 AM CDT) Only the most recent of9 resultswithin the time period is included. PHOSPHORUS 2.5 2.5 - 4.9 MG/DL 01/29/2025 7:39 AM CDT [facility] 01/29/2025 7:04 AM CDT us Devonte Kohler MD LABORATORY Final Result [facility] [address] [place] [address], [place] [phone] * MAGNESIUM (01/29/2025 7:04 AM CDT) Only the most recent of9 resultswithin the time period is included. MAGNESIUM 2.4 1.6 - 2.6 MG/DL 01/29/2025 7:39 AM CDT [facility] 01/29/2025 7:04 AM CDT us Devonte Kohler MD LABORATORY Final Result Performing Organization Address [facility] de Phone Number [facility] [address] [place] [address], [place] [phone] * XR NG/FEED TUBE PLCMT FLUORO (01/28/2025 2:50 PM CDT) Only the most recent of2 resultswithin the time period is included. Anatomical Region Laterality Modality Abdomen, Pelvis Fluoroscopy [...] content of this report. Referred By: ISAK CHRISTINA Interpreted By: Sinan Brown MD, 01/28/2025 3:14 PM Narrative 01/28/2025 3:[address] [address] [facility] [address] [place], [place] [address] Examination: XR NG/FEED TUBE PLCMT FLUORO Exam [...] of images saved: 1. Procedure Note Idris Garcia, DO - 01/28/[address] [address] Examination: XR NG/FEED TUBE PLCMT FLUORO Exam [...] thecontent of this report. Referred By: ISAK CHRISTINA Interpreted By: Sinan Brown MD, 01/28/2025 3:14 PM Devonte Kohler MD FLUOROSCOPY Final Result * XR ABD UPRIGHT (01/26/2025 3:55 PM [...] 6:29 PM Narrative 01/26/2025 6:53 PM CDT [address] [address] Examination: Abdomen 1 view Exam time: 15:50 [...] Procedure Note Alfie Davey MD - 01/26/[address] [address] Examination: Abdomen 1 view Exam time: 15:50 [...] [place] MD GENERAL IMAGING Final Result * ECG 12 lead (01/26/2025 1:50 PM CDT) Only the most recent of2 resultswithin the time period is included. 01/26/2025 1:[address] 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1955 Requested By: NAYA GONZALEZ Order Number: [id number] Reading : Wil Rogers Measurements Intervals [place] Rate: 99 P: 18 AR: 167 QRS: -13 QRSD: 92 T: 55 QT: 332 QTc: 427 Interpretive Statements SINUS RHYTHM POSSIBLE ANTERIOR MYOCARDIAL INFARCTION , OF INDETERMINATE AGE POSSIBLE INFERIOR MYOCARDIAL INFARCTION , PROBABLY OLD Procedure Note Wil Rogers MD - 01/26/2025 [place] [address] [place] [address] Test Date: 2025-01-26 Pat Name: SCOOBY WATSON Department: 1 Room: 72A 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 SODIUM S/P/B 139 136 - 145 MMOL/L 01/26/2025 2:49 AM CDT [facility] POTASSIUM S/P/B 3.7 3.5 - 5.1 MMOL/L 01/26/2025 2:49 AM CDT [facility] CHLORIDE S/P/B 103 97 - 115 MMOL/L 01/26/2025 2:49 AM CDT [facility] CO2 29.7 21.0 - 32.0 MMOL/L 01/26/2025 2:49 AM CDT [facility] GLUCOSE 183(H) 74 - 106 MG/DL 01/26/2025 2:49 AM CDT [facility] BUN 36(H) 7 - 18 MG/DL 01/26/2025 2:49 AM CDT [facility] CREATININE S/P/B 1.33(H) 0.70 - 1.30 MG/DL 01/26/2025 2:49 AM CDT [facility] CALCIUM S/P/B 9.3 8.5 - 10.1 MG/DL 01/26/2025 2:49 AM T [facility] BILIRUBIN TOTAL S/P/B 0.4 0.2 - 1.0 MG/DL 01/26/2025 2:49 AM CDT [facility] ALKALINE PHOSPHATASE S/P/B 106 45 - 115 U/L 01/26/2025 2:49 AM T [facility] AST 27 15 - 37 U/L 01/26/2025 2:49 AM CDT [facility] ALT 22 16 - 61 U/L 01/26/2025 2:49 AM CDT [facility] TOTAL PROTEIN S/P/B 7.1 6.4 - 8.2 G/DL 01/26/2025 2:49 AM CDT [facility] ALBUMIN S/P/B 2.3(L) 3.4 - 5.0 G/DL 01/26/2025 2:49 AM CDT [facility] ANION GAP 6.3 2.0 - 10.0 MMOL/L 01/26/2025 2:49 AM T [facility] OSMOLALITY (CALC) 301 MOSM/KG 2:49 AM T [facility] Comment:REFERENCE RANGE NOT ESTABLISHED GFR ESTIMATE 58(L) >90 ML/MIN/1. 73 M2 01/26/2025 2:49 AM CDT [facility] GFR NOTES GFR REFERENCE S: 01/26/2025 2:49 AM CDT [facility] Comment: THE ESTIMATED GFR IS CALCULATED [...] <15 ml/min/1.73 m2 01/26/2025 1:56 AM CDT Naya [place] MD LABORATORY Final Result [facility] [address] [place] [address], [id number] * XR CHEST PORTABLE (01/25/2025 9:53 AM CDT) Only the most recent of2 resultswithin the time period is included. Anatomical Region Laterality Modality Chest Radiographic Lindsey ging 01/25/2025 10:1 5 AM CDT Impressions 01/25/2025 10:17 AM CDT IMPRESSION: 1. Mild to moderate pulmonary vascular congestion. 2. No focal consolidation or pneumothorax. Referred By: ISAK CHRISTINA Interpreted By: Velvet Baker MD, 01/25/2025 10:15 AM Narrative 01/25/2025 10:17 AM CDT [facility] [address] [place], [place] [address] PROCEDURE: XR CHEST PORTABLE. 01/25/2025 9:51 AM. [...] Median sternotomy wires are present. Procedure Note Velvet Baker MD - 01/25/[address] [address] PROCEDURE: XR CHEST PORTABLE. 01/25/2025 9:51 AM. [...] focal consolidation or pneumothorax. Referred By: ISAK CHRISTINA Interpreted By: Velvet Baker MD, 01/25/2025 10:15 AM us Naya [place] MD GENERAL IMAGING Final Result * CT HEAD WO CON (01/24/2025 2:57 PM CDT) Only the most recent of2 resultswithin the time period is included. Anatomical Region Laterality Modality Head Computed Tomogra phy 01/24/2025 3:06 PM CDT Impressions 01/24/2025 3:09 PM CDT IMPRESSION: No CT evidence of an acute intracranial abnormality. Ordered By: ROBIN SHARMA Interpreted By: Romulo Bales MD, 01/24/2025 3:06 PM Narrative 01/24/2025 3:09 PM CDT [facility] [address] [place], [place] [address] Examination: CT HEAD WO CON, 01/24/2025 2:49 [...] Procedure Note Romulo Bales MD - 01/24/2025 [facility] [address] [place], [place] [address] Examination: CT HEAD WO CON, 01/24/2025 2:49 [...] Bales MD, 01/24/2025 3:06 PM Robin Sharma CORRECTIONAL OFFICER CAPTAIN CT Final Result * XR FEEDING TUBE PLCMENT (01/21/2025 2:55 PM CDT) Anatomical Region Laterality Modality NA Fluoroscopy 01/21/2025 2:55 PM CDT Impressions 01/22/2025 11:20 AM CDT IMPRESSION: Successful postpyloric Jim Thorpe fed placement. The attending radiologist was present in the department for all critical portions of the examination, has reviewed the images, and agrees with the resident's interpretation. Dictated By: Gilma Livingston MD on 01/21/2025 2:55 PM The attending radiologist has reviewed the image(s) and agrees with the content of this report. Referred By: ISAK CHRISTINA Interpreted By: Gilma Livingston MD, 01/21/2025 2:55 PM Narrative 01/22/2025 11:20 AM CDT [facility] [address] [place], [place] [address] [facility] [address] [place], [place] [address] EXAM: Nasoenteric tube placement. COMPARISONS: 01/20/2025 CT [...] Procedure Note Bryan Vogel MD - 01/22/[address] [address] [facility] [address] [place], [place] [address] EXAM: Nasoenteric tube placement. COMPARISONS: 01/20/2025 CT head, 01/19/2025 CT chest/abdomen/pelvis EXAM TIME:01/21/2025 2:23 PM EXAM HISTORY: Acute stroke, inability to swallow. TECHNIQUE: Informed consent was obtained prior to the patient arriving inthe radiology department. Under fluoroscopic guidance, a Keofeednasoenteric [...] immediate complications were noted. [facility] Total fluoroscopic time utilized was 4.5 minutes and reference air kerma82.8 mGy for this procedure. IMPRESSION: Successful postpyloric Jim Thorpe fed placement. The attending radiologist was present in the department for all criticalportions of the examination, has reviewed the images, and agrees with theresident's interpretation. Dictated By: Gilma Livingston MD on 01/21/2025 2:55 PM The attending radiologist has reviewed the image(s) and agrees with thecontent of this report. Referred By: ISAK CHRISTINA Interpreted By: Gilma Livingston MD, 01/21/2025 2:55 PM Dennys BAILEY FLUOROSCOPY Final Result * USE ECHOCARDIOGRAM (01/21/2025 12:22 PM CDT) Anatomical Region Laterality Modality Cardiac Echocardiogram 01/21/2025 10:2 9 AM CDT Narrative 01/21/2025 1:37 PM CDT Echocardiography Report Pat.Name: SCOOBY WATSON Pat.ID: [id number] .Date: 01/21/2025 Refer.: [id number] [facility] EWDPROV EWDPROV Exam Time: 10:29:00 AM Study Type:ECHO WITH CARDIAC DOPPLER COMP Height: 71 in Weight: 206 lb BSA: 2.14 m2 Age: 6 1955,69Y Sex: M BP: 128/74 HR: 70 bpm Sonogrphr: Wil Avila RDCS, RVT Pat. Stat.:Inpatient CPT - 4: 98086 Reason for Study:Stroke/TIA Procedures: 2D, M-mode, Doppler, [...] Mass 2D Value 117 g LV Mass [id number] Value 54.7 g/m2 2D Left Ventricle LVIDd [...] Rogers MD - 01/21/2025 Echocardiography Report Pat.Name: SCOOBY WATSON Pat.ID: [id number] .Date: 01/21/2025 Refer.: [id number] [facility] EWDPROV EWDPROV Exam Time: 10:29:00 AM Study Type:ECHO WITH CARDIAC DOPPLER COMP Height: 71 in Weight: 206 lb BSA: 2.14 m2 Age: 6 1955,69Y Sex: M BP: 128/74 HR: 70 bpm Sonogrphr: Wil Avila RDCS, RVT Pat. Stat.:Inpatient CPT - 4: 45129 Reason for Study:Stroke/TIA Procedures: 2D, M-mode, Doppler, [...] Mass 2D Value 117 g LV Mass [id number] Value 54.7 g/m2 2D Left Ventricle LVIDd [...] Signature> 01/21/2025 01:37 PM Wil Rogers M.D. Arianne Mcnally PA-C ECHO Final Resul t * (ABNORMAL) LIPID PANEL (01/21/2025 3:40 AM CDT) CHOLESTEROL 137 MG/DL 01/21/2025 4:25 AM CDT [facility] Comment:DESIRABLE: <200 TRIGLYCERIDES 137 MG/DL 01/21/2025 4:25 AM CDT [facility] Comment:<150 NORMAL HDL 38(L) >39 MG/DL 01/21/2025 4:25 AM CDT [facility] LDL (CALCULATED) 72 MG/DL 01/22/20 4:25 AM CDT [facility] Comment:<100 OPTIMAL VLDL CALCULATION 27 MG/DL 01/22/20 4:25 AM CDT [facility] Comment:REFERENCE RANGE NOT ESTABLISHED CHOL/HDL RATIO 3.6 01/21/2025 4:25 AM CDT [facility] Comment:REFERENCE RANGE NOT ESTABLISHED LDL/HDL 1.9 01/21/2025 4:25 AM CDT [facility] Comment:REFERENCE RANGE NOT ESTABLISHED NON HDL CHOLESTEROL 99 MG/DL 01/21/2025 4:25 AM T [facility] Comment:REFERENCE RANGE NOT ESTABLISHED 01/21/2025 3:40 AM CDT Arianne Mcnally PA-C LABORATORY Final Resul t [facility] [address] [place] [address], [id number] * MRI CERV SPINE WO CON (01/20/2025 5:10 PM CDT) Anatomical Region Laterality Modality Spine Magnetic Resonan ce 01/21/2025 7:05 AM CDT Impressions 01/21/2025 7:15 AM CDT IMPRESSION: 1. No convincing evidence of cord contusion, however significant artifact (predominantly related to patient motion) significantly limits this evaluation. 2. Chronic nonunited C2 fracture. Ordered By: OBINNA SIDDIQI Interpreted By: Bryan Vogel MD, 01/21/2025 7:05 AM Narrative 01/21/2025 7:15 AM CDT [place] [address] EXAMINATION: MRI OF THE CERVICAL SPINE WITHOUT [...] and ligamentous thickening. Mild spinal canal stenosis. Qzqr-ro-qeqlmega bilateral neural foraminal stenoses. C6-7: Minimal disc bulge with facet arthropathy. No significant spinal canal stenosis. No convincing evidence of significant neural foraminal stenosis though artifact limits accurate characterization. C7-T1: No evidence of significant spinal canal or neural foraminal stenosis. Procedure Note Bryan Vogel MD - 01/21/2025 [facility] [address] [place], [place] [address] EXAMINATION: MRI OF THE CERVICAL SPINE WITHOUT [...] arthropathy andligamentous thickening. Mild spinal canal stenosis. Xyov-wk-sgeaeyqmytbebtrvy neural foraminal stenoses. C6-7: Minimal disc bulge with facet arthropathy. No significant spinalcanal stenosis. No convincing evidence of significant neural foraminalstenosis though artifact limits accurate characterization. C7-T1: No evidence of significant spinal canal or neural foraminalstenosis. IMPRESSION: 1. No convincing evidence of cord contusion, however significant artifact(predominantly related to patient motion) significantly limits thisevaluation. 2. Chronic nonunited C2 fracture. Ordered By: OBINNA SIDDIQI Interpreted By: Bryan Vogel MD, 01/21/2025 7:05 AM us Obinna Siddiqi MD MRI Final Result * MRI BRAIN [...] 4. Preliminary report was sent to Dr Siddiqi by [employer] at 1825 hours on 01/20/2025. Referred By: ISAK CHRISTINA Interpreted By: Ryan Prasad MD, 01/20/2025 6:13 PM Narrative 01/20/2025 6:[address] [address] EXAM: MRI BRAIN WO CON DATE: 01/20/2025 [...] Procedure Note Ryan Prasad MD - 01/20/2025 [facility] [address] [place], [place] [address] EXAM: MRI BRAIN WO CON DATE: 01/20/2025 [...] 4. Preliminary report was sent to Dr Siddiqi by [employer] [id number] hours on 01/20/2025. Referred By: ISAK CHRISTINA Interpreted By: Ryan Prasad MD, 01/20/2025 6:13 PM us Obinna Siddiqi MD MRI Final Result * CTA HEAD+NECK (01/20/2025 11:35 AM CDT) [...] chronic/nonurgent findings as described. Referred By: ISAK CHRISTINA Interpreted By: Atilio Varela MD, 01/20/2025 12:33 PM Narrative 01/20/2025 1:07 PM CDT [place] [address] Examination: Cervicocerebral CTA. Exam time: 1137 hours. [...] segment again evident. The arteries of the [place] are otherwise unremarkable with no [...] Procedure Note Atilio Varela MD - 01/20/[address] [address] Examination: Cervicocerebral CTA. Exam time: 1137 hours. [...] A1 segment againevident. The arteries of the [place] are otherwise unremarkablewith no aneurysm, [...] chronic/nonurgent findings as described. Referred By: ISAK CHRISTINA Interpreted By: Atilio Varela MD, 01/20/2025 12:33 PM Arianne Mcnally PA-C CT Final Resul t * PARTIAL THROMBOPLASTIN TIME,PTT (01/20/2025 11:24 AM CDT) PTT 33.8 25.1 - 36.5 SEC 01/20/2025 11:43 AM CDT [facility] 01/20/2025 11:2 4 AM CDT us Sandra Lea DO LABORATORY Final Resul t Performing Organization Address [facility] de Phone Number [facility] [address] [place] [address], [phone] * (ABNORMAL) FIBRINOGEN (01/20/2025 11:24 AM CDT) FIBRINOGEN 457(H) 200 - 393 MG/DL 01/20/2025 11:41 AM CDT [facility] 01/20/2025 11:2 4 AM CDT us Sandra Lea DO LABORATORY Final Resul t Performing Organization Address [facility] de Phone Number [facility] [address] [place] [address], [place] [phone] * (ABNORMAL) D-DIMER, QUANTITATIVE (01/20/2025 11:24 AM CDT) D-DIMER 607(H) 0 - 500 ng{FEU}/mL 01/20/2025 11:42 AM CDT [facility] EXCLUSION STATEMENT 01/20/2025 11:45 AM CDT [facility] Comment: D-Dimer values less than or [...] 01/20/2025 11:2 4 AM CDT us Sandra Lea DO LABORATORY Final Resul t Performing Organization Address [facility] Co de Phone Number [facility] [address] [place] [address], [place] [phone] * TROPONIN, QUANT (01/20/2025 11:24 AM CDT) TROPONIN I HIGH SENSITIVITY 9 0 - 78 ng/L 01/20/2025 12:00 PM CDT [facility] 01/20/2025 11:2 4 AM CDT Sandra Lea LABORATORY Final Resul t Performing Organization Address [facility] de Phone Number [facility] [address] [place] [address], [place] [phone] * CKMB(MB FRACTION ONLY) (01/20/2025 11:22 AM CDT) CK-MB <1.0 0.5 - 3.6 NG/ML 01/20/2025 12:25 PM CDT [facility] 01/20/2025 11:2 2 AM CDT us Sandra Lea LABORATORY Final Resul t Performing Organization Address [facility] Co de Phone Number [facility] [address] [place] [address], [place] [phone] * CK (CPK) (01/20/2025 11:22 AM CDT) CPK 121 39 - 308 U/L 01/20/2025 12:25 PM CDT [facility] 01/20/2025 11:2 2 AM CDT us Sandra Lea LABORATORY Final Resul t Performing Organization Address City/[facility]/ZIP Co de Phone Number [address] [address], [phone] * XR CERV SPINE LAT 1V (01/19/2025 10:10 PM CDT) Anatomical Region Laterality Modality Spine Radiographic Lindsey ging 01/20/2025 4:16 AM CDT Impressions 01/20/2025 4:20 AM CDT IMPRESSION: The known C2 fracture is not well depicted radiographically. No significant cortical step-off is seen involving the C2 vertebrae. Referred By: ISAK CHRISTINA Interpreted By: Alfie Davey MD, 01/20/2025 4:16 AM Narrative 01/20/2025 4:20 AM CDT [address] [address] EXAMINATION: XR CERV SPINE LAT 1V HISTORY: [...] Procedure Note Alfie Davey MD - 01/20/[address] [address] EXAMINATION: XR CERV SPINE LAT 1V HISTORY: [...] involving the C2 vertebrae. Referred By: ISAK CHRISTINA Interpreted By: Alfie Davey MD, 01/20/2025 4:16 AM Bravo Killian MD GENERAL IMAGING Final Result * (ABNORMAL) HEMOGLOBIN, GLYCOSYLATED (01/19/2025 8:58 PM CDT) HGB A1C 12.3(H) <5.7 % 01/19/2025 9:55 PM CDT [facility] ESTIMATED AVG GLUCOSE 306(H) 74 - 114 MG/DL 01/19/2025 9:55 PM CDT [facility] 01/19/2025 8:58 PM CDT Phylicia Howard NP LABORATORY Final Result [facility] [address] [place] [address], [phone] * CTA NECK (01/19/2025 8:21 PM CDT) Anatomical Region Laterality Modality Neck Computed Tomogra phy 01/19/2025 8:47 PM CDT Addenda Addendum by Maria G Gilbert MD on 01/21/2025 11:26 AM CDT [facility] [address] [place] [address] exam was performed using one or more of the following dose reduction techniques: automated exposure control, adjustment of the mA and/or kV according to patient size, the use of iterative reconstruction technique, use of ALARA (As Low As Reasonably Achievable) and/or use of Image Gently techniques. Referred By: ISAK CHRISTINA Interpreted By: Maria G Gilbert MD, 01/21/2025 [...] for the other findings. Referred By: ISAK CHRISTINA Interpreted By: Maria G Gilbert MD, 01/19/2025 8:47 PM Narrative 01/19/2025 9:11 PM CD[address] [address] EXAMINATION: CTA Neck Without and With Intravenous [...] abnormality. There is generalized age-appropriate atrophy with ehmh-pn-puuhisfp nonspecific patchy hypodensity in the periventricular and deep cerebral white matter in the partially included bilateral deep cerebral white matter, likely nonspecific chronic white matter microvascular disease. Please refer to the CT chest exam of same date regarding the intrathoracic findings. Procedure Note Maria G Gilbert MD - 01/19/[address] [place] [address] EXAMINATION: CTA Neck Without and With Intravenous [...] osseous abnormality. There is generalizedage-appropriate atrophy with nyag-er-aptznsxb nonspecific patchyhypodensity in the periventricular and deep [...] or less likely atherosclerotic stenosis of the N1ybabduz of right anterior cerebral artery. The right A2 segment issupplied predominantly from the left anterior cerebral artery via theanterior communicating artery. 8. Please see above report for the other findings. Referred By: ISAK CHRISTINA Interpreted By: Maria G Gilbert MD, 01/19/2025 8:47 PM us Romulo [place] MD CT Edited Result - Final * CT CHEST+ABD+PEL W CON (01/19/2025 8:21 PM CDT) Anatomical Region Laterality Modality Chest, Abdomen, Pelvis Computed Tomography 01/19/2025 8:43 PM CDT Impressions 01/19/2025 9:17 PM CDT IMPRESSION: 1. No CT evidence of acute injury to the solid organs or hollow viscus of the abdomen and pelvis. Referred By: ISAK CHRISTINA Interpreted By: Trina Ferrera DO, 01/19/2025 8:43 PM Narrative 01/19/2025 9:17 PM CDT [place] [id number] CLINICAL INDICATION: 69-year-old male. Reason for examination: Ground-level fall with abdominal pain 01/19/2025 7:58 PM, Kwan Varela L: 100ml [id number] injected into AC, creat 0.8 from [facility]. Trauma CAT 3 transfer - Pt fall and laid on the ground for hours. known dens fx. Images from [facility] on PACS. Scanned by [employer] TECHNIQUE: CT [...] there is, portable trauma chest radiograph from [facility] at 15:48.. Outside imaging also includes CTA head and neck, CT brain and CT C-spine CT chest without contrast 12/09/2023. FROM [facility] CT chest without contrast 03/20/2023. [facility] CT abdomen and pelvis without contrast [facility] FINDINGS: CHEST: There is no pneumothorax. No [...] right and left and circumflex and LAD cocopah coronary artery calcifications which have been over [...] Procedure Note Trina Ferrera MD - 01/19/[address] [address] CLINICAL INDICATION: 69-year-old male. Reason for examination: Ground-level fall with abdominal pain 01/19/2025 7:58 PM, Kwan Varela L: 100ml [id number] injected into AC,creat 0.8 from [facility]. Trauma CAT 3 transfer - Pt fall and laid on the groundfor hours. known dens fx. Images from [facility] on PACS. Scanned by [employer] TECHNIQUE: CT [...] study there is, [facility] at 15:48.. Outside imaging also includes CTAhead and neck, CT brain and CT C-spine CT chest without contrast 12/09/2023. FROM [facility] CT chest without contrast 03/20/2023. [facility] CT abdomen and pelvis without contrast [facility] FINDINGS: CHEST: There is no pneumothorax. No [...] ofthe abdomen and pelvis. Referred By: ISAK CHRISTINA Interpreted By: Trina Ferrera DO, 01/19/2025 8:43 PM Romulo [address] MD CT Final Result from Last 3 Months Insurance [facility] Member Subscriber Plan / Payer (Ef fective 2021-Present) Name:Scooby Watson Relation to Subscriber:Self Name:Scooby Watson Payer ID:[id number] (NAIC) Type:Not on file Address: [place] [phone] Advance Directives Documents on File Type Date Recorded Patient Field Clerk Expl anation Advance Directives and Living Will 05/14/2018 9:17 AM 05-13-18 POA FOR HEALTHCARE * Full Code (Latest Code Status on File) Date Activated Date Inactivated Comments 01/19/2025 7:39 PM 02/02/2025 4:39 PM * Full Code Date Activated Date Inactivated Comments 03/19/2023 7:54 PM 03/23/2023 3:36 PM * Full Code Date Activated Date Inactivated Comments 05/02/2018 1:12 PM 05/02/2018 7:11 PM Care Teams Tub Wash Operator Relationship Specialty Start Date End Date Adolfo Koo MD [place] [facility] [address] [place] [address] [place] Level Vial Sealer CARDIOVASCULAR DISEASE 03/24/18
[2025-02-03 15:17] VITALS: BP 138/80; PULSE 88; RESP 18; TEMP 36.6; O2SAT 95
== END 2025-02-03 18:30 ==
PROVIDERS: Emergency Provider Emergency Medicine; PCP Nurse Practitioner Family
DX: Z43.1 Encounter for attention to gastrostomy (principal)
CPT/HCPCS: 99282

== ENCOUNTER 2025-02-04 12:57 | Emergency (ER) | payer MEDICARE, SELFPAY ==
[2025-02-04 13:07] VITALS: BP 114/78; PULSE 102; RESP 16; TEMP 37.1; O2SAT 93
--- OUTSIDE RECORDS SUMMARY | 2025-02-04 13:13 | XMS_ITS | Referral Summary ---
Author Organization [facility] Phys[facility] [address] [place] [address] Care Team Providers Care Spear Fisher Name Role Phone Nicole Garcia NP Primary Care Provider [phone] Encounters Date Type Department Care Team Description 11/07/2024 10:30 AM TOOL MAKER Office Visit [facility] Diabetes and Endocrinology [address] [place] [phone] Tiffani Sen NP Type 2 diabetes [...] (HCC) Inject 30 Units under the skin boom tender before breakfast 30 mL 3 4 05/03/20 [...] 05/03/2024 Assessment & Plan (11/07/2024 10:22 AM TOOL MAKER): Chronic problem. Controlled on current metoprolol XL [...] 05/03/2024 Assessment & Plan (11/07/2024 10:22 AM TOOL MAKER): Chronic problem. Currently taking atorvastatin 40mg every other day. Last lipid panel: 05/03/24 LDL=44, PK=361. Assessment & Plan (07/25/2024 10:26 AM CDT): Chronic problem. Currently taking atorvastatin 40mg every other day. Last lipid panel: 05/03/24 LDL=44, NF=734. Assessment & Plan (05/03/2024 11:34 AM CDT): Chronic problem. Currently taking atorvastatin 40mg every other day. Last lipid panel: 03/31/23 LDL=20, HT=501. Will update labs today. Does not mychart. Verified phone #/address to contact re: results. Type 2 diabetes mellitus wit h hyperglycemia, with long-term current use of insulin 01/19/2024 Assessment & Plan (11/07/2024 11:08 AM TOOL MAKER): Chronic problem. A1c uncontrolled and worsened from [...] on file Legal Sex Male 11:20 PM TOOL MAKER Gender Identity Not on file Sexual Orientation Not on file Last Filed Vital Signs Vital Sign Reading Time Taken Comments Blood Pressure 122/84 11/07/2024 10:16 AM TOOL MAKER Pulse 80 11/07/2024 10:16 AM TOOL MAKER Temperature - - Respiratory Rate 18 11/07/2024 10:16 AM TOOL MAKER Oxygen Saturation - - Inhaled Oxygen Concentration - - Weight 93 kg (205 lb) 11/07/2024 10:16 AM TOOL MAKER Height 180.3 cm (5' 10.98 ) 11/07/2024 10:16 AM TOOL MAKER Body Mass Index 28.6 11/07/2024 10:16 AM TOOL MAKER Plan of Treatment Not on file Procedures Procedure Name Priority Date/Time Associated Diagnosis Comments POCT GLUCOSE Routine 11/07/2024 10:27 AM TOOL MAKER Type 2 diabetes mellitus with hyperglycemia, with long-term current use of insulin (HCC) POCT HEMOGLOBIN A1C Routine 11/07/2024 1 0:27 AM TOOL MAKER Type 2 diabetes mellitus with hyperglycemia, with long-term current use of insulin (HCC) LIPID PANEL Routine 05/03/2024 11:50 AM CDT Type 2 diabetes mellitus with hyperglycemia, with long-term current use of insulin (HCC) ALBUMIN CREATININE RATIO, URINE Routine 05/03/2024 11:50 AM CDT Type 2 diabetes mellitus with hyperglycemia, with long-term current use of insulin ([facility]) BASIC METABOLIC PANEL Routine 12/02/2023 10:40 AM TOOL MAKER from Last 3 Months or Most Recently Relevant to Health Maintenance Results * (ABNORMAL) POCT hemoglobin A1c (11/07/2024 10:27 AM TOOL MAKER) Hemoglobin A1C, POC 12.9 4.0 - 5.6 % Blood 11/07/2024 10:2 7 AM TOOL MAKER Tiffani Sen ENTRY LEVEL ACCOUNT REPRESENTATIVE POINT OF CARE TEST ORDERA BLES Final Result * (ABNORMAL) POCT glucose (11/07/2024 10:27 AM TOOL MAKER) Glucose Blood, POC 394 mg/dL Blood 11/07/2024 10:2 7 AM TOOL MAKER Tiffani Sen NP POINT OF CARE TEST [...] URINE ORDERABLES Lola cain Result CORRINE RHO[address]ES [address] Department [place] [address] * (ABNORMAL) Lipid panel (05/03/2024 11:50 AM [...] 05/03/2024 2:01 PM CDT us Tiffani Sen ENTRY LEVEL ACCOUNT REPRESENTATIVE LAB BLOOD ORDERABLES Lola l Result CORRINE RHO[address]ES [address] Department [place] [address] * (ABNORMAL) Basic metabolic panel (12/02/2023 10:40 AM TOOL MAKER) SCRIBED Sodium 138 136 - 145 mmol/L [...] mg/dl EXTERNAL LAB SCRIBED eGFR in NonAfrican Malawian 50 >90 - NA EXTERNAL LAB Blood 12/02/2023 10:4 0 AM TOOL MAKER us Historical Provider LAB BLOOD ORDERABLES Edit ed Result - Final EXTERNAL LAB from Last 3 Months or Most Recently Relevant to Health Maintenance Insurance [facility] MEDICARE ADVANTAGE [facility] Address: [facility] [address] [place] [address] [facility] MEDICARE ADVANTAGE Care Teams Spear Fisher Relationship Specialty Start Date End Date Nicole Garcia NP [address] [place] [address] [place] [address] PCP - General Family Practice 11/10/23
--- OUTSIDE RECORDS SUMMARY | 2025-02-04 13:13 | XMS_ITS | Clinical Summary ---
Author Organization [facility] Phys[facility] Building [address] [place] [phone] Care Team Providers Care Crown Ceramist Name Role Phone Nicole Garcia NP Primary Care Provider [phone] Allergies No known active allergies Medications atorvastatin [...] (HCC) Inject 30 Units under the skin tire groover before breakfast 30 mL 3 4 05/03/20 [...] 05/03/2024 Assessment & Plan (11/07/2024 10:22 AM REGIONAL INTERMODAL TRUCK DRIVER): Chronic problem. Controlled on current metoprolol XL [...] 05/03/2024 Assessment & Plan (11/07/2024 10:22 AM REGIONAL INTERMODAL TRUCK DRIVER): Chronic problem. Currently taking atorvastatin 40mg every other day. Last lipid panel: 05/03/24 LDL=44, IV=525. Assessment & Plan (07/25/2024 10:26 AM CDT): Chronic problem. Currently taking atorvastatin 40mg every other day. Last lipid panel: 05/03/24 LDL=44, EF=611. Assessment & Plan (05/03/2024 11:34 AM CDT): Chronic problem. Currently taking atorvastatin 40mg every other day. Last lipid panel: 03/31/23 LDL=20, GM=901. Will update labs today. Does not mychart. Verified phone #/address to contact re: results. Type 2 diabetes mellitus wit h hyperglycemia, with long-term current use of insulin 01/19/2024 Assessment & Plan (11/07/2024 11:08 AM REGIONAL INTERMODAL TRUCK DRIVER): Chronic problem. A1c uncontrolled and worsened from [...] Department Care Team Description 11/07/2024 10:30 AM REGIONAL INTERMODAL TRUCK DRIVER Office Visit [facility] Medical Group Diabetes and Endocrinology [address] [place] [phone] Tiffani Sen, [place] Type 2 diabetes [...] on file Legal Sex Male 11:20 PM REGIONAL INTERMODAL TRUCK DRIVER Gender Identity Not on file Sexual Orientation Not on file Obstetrics History Last Filed Vital Signs Vital Sign Reading Time Taken Comments Blood Pressure 122/84 11/07/2024 10:16 AM REGIONAL INTERMODAL TRUCK DRIVER Pulse 80 11/07/2024 10:16 AM REGIONAL INTERMODAL TRUCK DRIVER Temperature - - Respiratory Rate 18 11/07/2024 10:16 AM REGIONAL INTERMODAL TRUCK DRIVER Oxygen Saturation - - Inhaled Oxygen Concentration - - Weight 93 kg (205 lb) 11/07/2024 10:16 AM REGIONAL INTERMODAL TRUCK DRIVER Height 180.3 cm (5' 10.98 ) 11/07/2024 10:16 AM REGIONAL INTERMODAL TRUCK DRIVER Body Mass Index 28.6 11/07/2024 10:16 AM REGIONAL INTERMODAL TRUCK DRIVER Plan of Treatment Health Maintenance Due Date [...] Comments POCT GLUCOSE Routine 11/07/2024 10:27 AM REGIONAL INTERMODAL TRUCK DRIVER Type 2 diabetes mellitus with hyperglycemia, with long-term current use of insulin (HCC) POCT HEMOGLOBIN A1C Routine 11/07/2024 1 0:27 AM REGIONAL INTERMODAL TRUCK DRIVER Type 2 diabetes mellitus with hyperglycemia, with long-term current use of insulin (HCC) LIPID PANEL Routine 05/03/2024 11:50 AM CDT Type 2 diabetes mellitus with hyperglycemia, with long-term current use of insulin (HCC) ALBUMIN CREATININE RATIO, URINE Routine 05/03/2024 11:50 AM CDT Type 2 diabetes mellitus with hyperglycemia, with long-term current use of insulin (HCC) BASIC METABOLIC PANEL Routine 12/02/2023 10:40 AM REGIONAL INTERMODAL TRUCK DRIVER from Last 3 Months or Most Recently Relevant to Health Maintenance Results * (ABNORMAL) POCT hemoglobin A1c (11/07/2024 10:27 AM REGIONAL INTERMODAL TRUCK DRIVER) [facility] Hemoglobin A1C, POC 12.9 4.0 - 5.6 % Blood 11/07/2024 10:2 7 AM REGIONAL INTERMODAL TRUCK DRIVER Tiffanichelle Sen CLUTCH INSPECTOR POINT OF CARE TEST ORDERA BLES Final Result * (ABNORMAL) POCT glucose (11/07/2024 10:27 AM REGIONAL INTERMODAL TRUCK DRIVER) Glucose Blood, POC 394 mg/dL Blood 11/07/2024 10:2 7 AM REGIONAL INTERMODAL TRUCK DRIVER us Tiffanichelle Sen CLUTCH INSPECTOR POINT OF CARE TEST ORDERA BLES Final [...] LAB URINE ORDERABLES Lola l Result CORRINE [address] Department [place] [address] * (ABNORMAL) Lipid panel (05/03/2024 11:50 AM [...] LAB BLOOD ORDERABLES Lola cain Result [address]INE [address] [address] Department [place] [address] * (ABNORMAL) Basic metabolic panel (12/02/2023 10:40 AM REGIONAL INTERMODAL TRUCK DRIVER) SCRIBED Sodium 138 136 - 145 mmol/L [...] mg/dl EXTERNAL LAB SCRIBED eGFR in NonAfrican Omani 50 >90 - NA EXTERNAL LAB Blood 12/02/2023 10:4 0 AM REGIONAL INTERMODAL TRUCK DRIVER us Historical Provider LAB BLOOD ORDERABLES Edit ed Result - Final EXTERNAL LAB from Last 3 Months or Most Recently Relevant to Health Maintenance Insurance [facility] MEDICARE ADVANTAGE [facility] MEDICARE Address: [address] [address] [place] [address] [facility] MEDICARE ADVANTAGE [facility] MEDICARE Address: [address] [address] [place] [address] Care Teams Crown Ceramist Relationship Specialty Start Date End Date Nicole Garcia NP [address] [place] [address] [place] [address] PCP - General Family Practice 11/10/23
--- OUTSIDE RECORDS SUMMARY | 2025-02-04 13:14 | XMS_ITS | Encounter Summary ---
Author Organization [facility] Address [facility] [place] [address] Care Team Providers Care Wastewater Project Manager Name Role Phone Adolfo Koo MD Unavailable [phone] Nicole Garcia BEEF PLUCK TRIMMER Primary Care Provider [phone] Reason for Referral * Surgical (Routine) - Closed Specialty Diagnoses / Procedures Referred By Contac t Referred To Contact SURGERY Diagnoses Encounter for screening for malignant neoplasm of colon Screening for malignany neoplasm of colon Procedures Case request operating room: COLONOSCOPY DIAGNOSTIC WITH/WITHOUT SPECIMEN BRUSH/WASH, POSSIBLE POLYPECTOMY, POSSIBLE BIOPSY T/F 1ST CASE [id number] Colonoscopy Pasquale Hutchins MD [place] [address] , [address] [place] [address] Phone: tel: fax: Referral ID Status Reason Start Date Expiration Date Visits Re quested Visits Authorized [id number] Closed 04/21/2022 05/21/2023 1 1 Encounter Details Date Type Department Care Team (Late st Contact Info) Description 04/21/2022 Prep for Procedure [address] [place] , [address] [place] [address] Pasquale Hutchins MD Social History [...] 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 Not on file [...] Description 02/08/2025 9:00 AM CDT Office Visit [facility] - [address] [place] [phone] Devan Henderson, DPM [address] [place] [address] 04/03/2025 10:20 AM CDT Office Visit [address] [place] [address] [place] [address] 05/11/2025 10:00 AM CDT Office Visit [facility] [address] [place] [address] Sorin Ram MD [address] [facility] [address] [address] Scheduled Orders Name Type Priority Associated Diagnoses [...] Depression Total Score: 0 12/25/19 10:03 AM 911 EMERGENCY SERVICES DISPATCHER documented as of this encounter Care Teams Wastewater Project Manager Relationship Specialty Start Date End Date Nicole Garcia FNP [address] [place] [address] [place] [address] PCP - General Nurse Practitioner Family 02/28/20 02/01/25 Adolfo Koo MD [facility] [address] [place] [address] [place] Front Desk CARDIOVASCULAR DISEASE 03/24/18 documented as of this encounter
--- OUTSIDE RECORDS SUMMARY | 2025-02-04 13:14 | XMS_ITS | Encounter Summary ---
Author Organization [facility] Address [facility] access hospital[address] [place] [address] Care Team Providers Care Superintendent Pipelines Name Role Phone Adolfo Koo MD Unavailable [phone] Jered Solis MD Primary Care Provider [phone] Nicole Garcia Primary Care Provider [phone] Encounter Details Date Type Department Care Team (Late Contact Info) Description 04/15/2018 Abstract [facility] at [address] [address] Klarissa Balderrama, A Social History [...] Medical [facility] - [address] [place] [address] Devan Henderson, LOU [address] [place], [place] [id number] 04/03/2025 10:20 AM CDT Office Visit [facility] [address] [facility] [place] [address] Nicole Garcia, [facility] [address] [place] [address] 05/11/2025 10:00 AM CDT Office Visit [facility] [address] [place] [address] Sorin Ram MD [address] [facility] [address] [address] documented as of this encounter Procedures Procedure [...] documented as of this encounter Care Teams Superintendent Pipelines Relationship Specialty Start Date End Date Jered Solis MD [address] [place] [address] PCP - General FAMILY PRACTICE 04/06/18 02/27/20 Nicole Garcia FNP [address] [facility] [place] [address] PCP - General Nurse Practitioner Family 02/28/20 02/01/25 Adolfo Koo MD [facility]. [facility] [address] [place] [address] [place] Wet End Tester CARDIOVASCULAR DISEASE 03/24/18 documented as of this encounter
--- OUTSIDE RECORDS SUMMARY | 2025-02-04 13:14 | XMS_ITS | Clinical Summary ---
Author Organization [facility] Address [address] [place] [address] Care Team Providers Care Traffic Enumerator Name Role Phone Adolfo Koo MD Unavailable Allergies No known active allergies Medications Insulin Pen Needle (PEN NEEDLES) 31G X 8 MM MiscIndications:Un controlled type 2 diabetes mellitus with hyperglycemia ([facility]) 1 each by Does not apply route daily. 100 each 3 03/31/20 23 Active Glucose Blood (ONETOUCH ULTRA) test stripIndications:U ncontrolled type 2 diabetes mellitus with hyperglycemia ([facility]) Use as instructed -- Test blood sugar BID and PRN DX: E11.65 200 strip 3 08/26/20 23 Active metFORMIN (GLUCOPHAGE) 1000 MG tabletIndications: Uncontrolled type 2 diabetes mellitus with hyperglycemia ([facility]) BID 180 tablet 3 09/13/20 23 Active glimepiride (AMARYL) 2 MG tablet Take 1 tablet (2 mg total) by mouth every morning before breakfast. 03/07/20 24 Active pioglitazone (ACTOS) 30 MG tablet Take 1 tablet (30 mg total) by mouth daily. 02/07/20 24 Active aspirin EC (ECOTRIN) 81 MG tabletIndications: Coronary artery disease involving [place] coronary artery of [place] heart without angina pectoris,S/P CABG x 4 Take 1 tablet (81 mg total) by mouth daily. 90 tablet 3 06/01/20 24 Active pantoprazole EC (PROTONIX) 40 MG tabletIndications: Gastroesophageal reflux disease, unspecified whether esophagitis present take 1 tablet by mouth every day 90 tablet 1 06/06/20 24 Active atorvastatin (LIPITOR) 40 MG tabletIndications: Uncontrolled type 2 diabetes mellitus with hyperglycemia ([facility]) Take 1 tablet (40 mg total) [...] diabetes mellitus, unspecified laterality, unspecified ulcer stage ([facility]) Apply topically 2 (two) times daily. [...] Diagnosed Date Fall 01/21/2025 Acute embolic stroke ([facility]) Closed C2 fracture ([facility]) 01/19/2025 Uncontrolled type 2 diabetes mellitus with hyperglycemia ([facility]) 01/26/2024 Stage 3a chronic kidney disease 03/31/2023 COVID-19 vaccination declined 12/24/2021 Non-rheumatic mitral regurgitation 05/04/2019 Benign essential HTN 07/26/2018 Microalbuminuria 08/10/2017 Overview (10/03/2018): Date Onset: 08/10/2017 Coronary artery disease invo lving [place] coronary artery of [place] heart without angina pectoris Hyperlipidemia S/P CABG x 4 Resolved Problems Problem Noted Date Diagnosed Date Resolved Date Diabetic ketoacidosis withou t coma associated with diabetes mellitus due to underlying condition ([facility]) 03/19/2023 01/26/2024 DKA (diabetic ketoacidosis) ([facility]) 03/19/20 23 06/02/2023 Noncompliance with medication regimen 12/24/2021 11/01/2024 Acute myocardial infarction ([facility]) 07/11/20 18 05/15/2020 Overview (10/03/2018): Date Onset: 07/11/2018 Situational stress 06/13/2015 Overview (10/03/2018): Date Onset: 06/13/2015 Eustachian tube dysfunction 06/13/2015 03/04/2021 Overview (03/04/2021): Date Onset: 06/13/2015 Closed fracture of distal end of fibula 05/18/2013 03/04/2021 Overview (03/04/2021): Date Onset: 05/18/2013 Chest pain 05/15/2020 Encounters Date Type Department Care Team Description 01/25/2025 Telephone [facility] [address] [place] [address] Sorin Ram MD Holter Monitor; Appointment Request 01/19/2025 7:05 PM CDT - 02/02/2025 2:33 PM CDT Hospital Encounter [facility] [address] [place] [address] Pio Brown MD Steele, Alecia N, Romulo Najera MD Johnston, Amanda J, DO Gowda, Chetan N, MD Jabeen, MD Edita Singh Ashish, MD Markapuram, Srikanth, MD Lin, Ludwig Sosa MD Trauma Discharge Disposition: [facility] 01/19/2025 Travel 01/11/2025 9:00 AM CDT Office Visit [facility] [place] [address], [address] [place] [address] Devan Henderson DPM Foot Ulcer (Pt is here for a 1 mo f/u on a Rt foot ulcer. He states it is looking good. It has a lot of new flesh and is a little red from the cream he has been using. Blood sugars per Pt has been good./JRR) 01/11/2025 Travel 12/14/2024 8:40 AM DIRECTOR PHARMACY SERVICES Office Visit [facility] [place] [address], [address] [place] [address] Devan Henderson DPM Foot Ulcer ( f/u [...] 12/14/2024 Travel from Last 3 Months Immunizations Immunization Administration Dates Next Due Influenza Adult (Generic) [...] oz pur e alcohol) quit before 2021 [facility] Utilities Answer Date Recorded In the past 12 months has th e [employer], gas, oil, or water [employer] threatened to shut off services in your [...] place to sleep or slept in a custodial (including now)? No 03/19/2023 Housing Stability Vital Sign Answer Ru e Recorded In the last 12 months, was t here a time when you were not able to pay the mortgage or rent on time? No 01/21/2025 In the past 12 months, how m any times have you moved where you were living? 0 01/21/2025 At any time in the past 12 m [facility], were you homeless or living in a custodial (including now)? 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 Not on file [...] Description 02/08/2025 9:00 AM CDT Office Visit [facility] [address] [place] [phone] Devan Henderson, DPM [address] [place] [address] 04/03/2025 10:20 AM CDT Office Visit [place] [address] [place] [address] Nicole Garcia FNP [facility] [place] [address] 05/11/2025 10:00 AM CDT Office Visit [facility] [address] [place] [phone] Sorin Ram MD [address] [facility] [address], [place] [address] Health Maintenance Due Date Last Done Comments Diabetes: Retinopathy Eye Exam 1974 Pneumococcal Vaccine: 50+ Years (1 of 2 - PCV) 1975 Zoster Vaccines (1 of 2) 2006 RSV [...] Postponed from 06/25/2024 (Patient Refused) PHQ-2 (Physician [place]) Completed 11/01/2024 AAA SCREENING Completed 01/19/2025, 11/25, [...] this topic Medical Devices Implanted Type 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 Device Identifier Shelf Expiration Date Model / Serial / Lot Sternal Wires Implanted:Qty: 1 on 05/09/2018 by Daily, Manish Dos Santos MD at [facility] N/A: Chest A&E MEDICAL Polar OLED 01/23/2023 [id number] / / [id number] Description:WIRES X 6 Sternal Wires Implanted:Qty: 1 on 05/09/2018 by Manish Pacheco MD at [facility] N/A: Chest A&E Pat[employer]path 01/23/2023 [id number] / [id number] Description:STERNAL WIRES X 1 Procedures Procedure Name [...] 01/28/2025 2:50 PM CDT POCT GLUCOSE - REMDOND DOCKED DEVICE Routine 01/28/2025 12:49 PM CDT [...] 70 - 109 02/02/2025 11:31 AM CDT [facility] 02/02/2025 11:1 0 AM CDT us Ludwig Saucedo MD POCT ORDERABLES - DEVICE Final R esult [facility] [address] [place] [address], [phone] * XR SPEECH SWALLOW SJS ONLY (02/02/2025 9:26 AM CDT) Anatomical Region Laterality Modality NA Fluoroscopy 02/02/2025 4:34 PM CDT Impressions 02/02/2025 4:36 PM CDT IMPRESSION: 1. See dedicated speech pathologist report report for results and recommendations. 2. Swallow as above Ordered By: LUDWIG SAUCEDO Interpreted By: Alfie Davey MD, 02/02/2025 4:34 PM Narrative 02/02/2025 4:[address] PM [address]T [address] [address] Examination: XR SPEECH SWALLOW SJS ONLY Exam [...] via a cup demonstrated penetration without aspiration. [place] barium via a spoon demonstrated penetration to the cords. No scooby aspiration identified. Procedure Note Alfie Davey MD - 02/02/[address] [address] Examination: XR SPEECH SWALLOW SJS ONLY Exam [...] barium via a cup demonstrated penetrationwithout aspiration. [place] barium via a spoon demonstrated penetration tothe cords. No scooby aspiration identified. IMPRESSION: 1. See dedicated speech pathologist report report for results andrecommendations. 2. Swallow as above Ordered By: LUDWIG SAUCEDO Interpreted By: Alfie Davey MD, 02/02/2025 4:34 PM Ludwig Saucedo MD FLUOROSCOPY Final Result * HEMOGLOBIN AND HEMATOCRIT (01/30/2025 1:19 PM CDT) HGB 12.2 12.0 - 16.0 G/DL 01/30/2025 1:27 PM CDT [facility] HCT 38.3 37.0 - 52.0 % 01/30/2025 1:27 PM CDT [facility] 01/30/2025 1:19 PM CDT Velvet Poole MD LABORATORY Final Resu lt [facility] [address] [place] [address], [phone] * (ABNORMAL) BMP WITHOUT GLUCOSE (01/30/2025 3:10 AM CDT) SODIUM S/P/B 140 136 - 145 MMOL/L 01/30/2025 3:45 AM CDT [facility] POTASSIUM S/P/B 4.1 3.5 - 5.1 MMOL/L 01/30/2025 3:45 AM CDT [facility] CHLORIDE S/P/B 106 97 - 115 MMOL/L 01/30/2025 3:45 AM CDT [facility] CO2 31.8 21.0 - 32.0 MMOL/L 01/30/2025 3:45 AM CDT [facility] BUN 23(H) 7 - 18 MG/DL 01/30/2025 3:45 AM CDT [facility] CREATININE S/P/B 1.19 0.70 - 1.30 MG/DL 01/30/2025 3:45 AM CDT [facility] CALCIUM S/P/B 9.2 8.5 - 10.1 MG/DL 01/30/2025 3:45 AM CDT [facility] ANION GAP 2.2 2.0 - 10.0 MMOL/L 01/30/2025 3:45 AM CDT [facility] GFR ESTIMATE 67(L) >90 ML/MIN/1. 73 M2 01/30/2025 3:45 AM CDT [facility] GFR NOTES GFR REFERENCE S: 01/30/2025 3:45 AM CDT [facility] Comment: THE ESTIMATED GFR IS CALCULATED [...] us Ludwig Saucedo MD LABORATORY Final Result [facility] [address] [place] [address], [phone] * IR PERC HUI CATH PLCMNT (01/29/2025 [...] 10:18 AM Narrative 01/29/2025 11:24 AM CDT [place] [address] IR IMAGE GUIDED PERCUTANEOUS GASTROSTOMY TUBE PLACEMENT HISTORY: 69-year-old male with recent CVA, cervical trauma, dysphagia. IR was consulted for image guided gastrostomy tube placement. COMPARISON: CT chest abdomen and pelvis, 10/21/2025. INTERVENTIONALISTS: STAFF: Velvet Baker M.D Beveling Machine Operator: SMITA Garza. CONSENT: The risks, benefits and [...] signs and administer moderate sedation medications. Total kygm-it-vfdg sedation time was 20 minutes. The attending [...] Procedure Note Velvet Baker MD - 01/29/[address] [address] IR IMAGE GUIDED PERCUTANEOUS GASTROSTOMY TUBE PLACEMENT HISTORY: 69-year-old male with recent CVA, cervical trauma, dysphagia. IR was consulted for image guided gastrostomy tube placement. COMPARISON: CT chest abdomen and pelvis, 10/21/2025. INTERVENTIONALISTS: STAFF: Velvet Baker M.D Beveling Machine Operator: SMITA Garza. CONSENT: The risks, benefits and [...] vital signs and administer moderatesedation medications. Total zvva-ec-dnyt sedation time was 20 minutes.The attending physician [...] - 12.5 SEC 01/29/2025 7:31 AM CDT [facility] INR 1.2(H) 0.8 - 1.1 01/29/2025 7:31 AM CDT [facility] 01/29/2025 7:04 AM CDT Jluis Blum MD LABORATORY Final Result Performing Organization Address City/State/[facility] Co de Phone Number [facility] [address] [place] [address], [phone] * (ABNORMAL) BASIC METABOLIC PANEL (01/29/2025 7:04 AM CDT) Only the most recent of8 resultswithin the time period is included. SODIUM S/P/B 141 136 - 145 MMOL/L 01/29/2025 7:39 AM CDT [facility] POTASSIUM S/P/B 3.6 3.5 - 5.1 MMOL/L 01/29/2025 7:39 AM CDT [facility] CHLORIDE S/P/B 104 97 - 115 MMOL/L 01/29/2025 7:39 AM CDT [facility] CO2 34.3(H) 21.0 - 32.0 MMOL/L 01/29/2025 7:39 AM CDT [facility] GLUCOSE 173(H) 74 - 106 MG/DL 01/29/2025 7:39 AM CDT [facility] BUN 24(H) 7 - 18 MG/DL 01/29/2025 7:39 AM CDT [facility] CREATININE S/P/B 1.15 0.70 - 1.30 MG/DL 01/29/2025 7:39 AM CDT [facility] CALCIUM S/P/B 9.6 8.5 - 10.1 MG/DL 01/29/2025 7:39 AM CDT [facility] ANION GAP 2.7 2.0 - 10.0 MMOL/L 01/29/2025 7:39 AM CDT [facility] OSMOLALITY (CALC) 300 MOSM/KG 025 7:39 AM CDT [facility] Comment:REFERENCE RANGE NOT ESTABLISHED GFR ESTIMATE 69(L) >90 ML/MIN/1. 73 M2 01/29/2025 7:39 AM CDT [facility] GFR NOTES GFR REFERENCE S: 01/29/2025 7:39 AM T [facility] Comment: THE ESTIMATED GFR IS CALCULATED [...] CDT Devonte Kohler MD LABORATORY Final Result [facility] [address] [place] [address], [phone] * (ABNORMAL) CBC W/DIFF AUTOMATED (01/29/2025 7:04 AM CDT) Only the most recent of10 resultswithin the time period is included. WBC 8.33 4.00 - 10.80 x10'3/uL 01/29/2025 7:22 AM CDT [facility] RBC 4.73 4.50 - 6.10 x10'6/uL 01/29/2025 7:22 AM CDT [facility] HGB 14.2 12.0 - 16.0 G/DL 01/29/2025 7:22 AM CDT [facility] HCT 43.7 37.0 - 52.0 % 01/29/2025 7:22 AM CDT [facility] MCV 92.4 78.0 - 100.0 FL 01/29/2025 7:22 AM CDT [facility] MCH 30.0 27.0 - 31.0 PG 01/29/2025 7:22 AM CDT [facility] MCHC 32.5(L) 33.0 - 36.0 G/DL 01/29/2025 7:22 AM CDT [facility] RDW 12.7 11.5 - 14.5 % 01/29/2025 7:22 AM CDT [facility] PLT 217 150 - 350 x10'3/uL 01/29/2025 7:22 AM CDT [facility] MPV 9.9 7.4 - 10.4 FL 01/29/2025 7:22 AM CDT [facility] DIFFERENTIAL TYPE AUTOMATED DIFFERENTIAL 01/29/2025 7:22 AM CDT [facility] SEG NEUTROPHILS 79.1 % 7:22 AM CDT [facility] LYMPHOCYTES 10.4 % 01/29/2025 7:22 AM CDT [facility] MONOCYTES 9.2 % 01/29/2025 7:22 AM CDT [facility] EOSINOPHILS 0.4 % 01/29/2025 7:22 AM CDT [facility] BASOPHILS 0.4 % 01/29/2025 7:22 AM CDT [facility] IMMATURE GRANS % 0.5 % 01/30/20 7:22 AM CDT [facility] ABS. NEUTROPHILS 6.59 1.60 - 8.30 x10'3/uL 01/29/2025 7:22 AM CDT [facility] ABS. LYMPHOCYTES 0.87 0.80 - 4.70 x10'3/uL 01/29/2025 7:22 AM CDT [facility] ABS. MONOCYTES 0.77 0.00 - 1.50 x10'3/uL 01/29/2025 7:22 AM CDT [facility] ABS. EOSINOPHILS 0.03 0.00 - 0.40 x10'3/uL 01/29/2025 7:22 AM CDT [facility] ABS. BASOPHILS 0.03 0.00 - 0.20 x10'3/uL 01/29/2025 7:22 AM CDT [facility] ABS. IMMATURE GRANULOCYTES 0.04(H) 0.00 - 0.03 x10'3/uL 01/29/2025 7:22 AM CDT [facility] ABS. NUCLEATED RBC'S 0.00 0.00 - 0.01 x10'3/uL 01/29/2025 7:22 AM CDT [facility] NRBC % 0.0 % 01/29/2025 7:22 AM CDT [facility] 01/29/2025 7:04 AM CDT Jluis Blum MD LABORATORY Final Result [facility] [address] [place] [address], [phone] * PHOSPHORUS, INORGANIC PHOSPHATE (01/29/2025 7:04 AM CDT) Only the most recent of9 resultswithin the time period is included. PHOSPHORUS 2.5 2.5 - 4.9 MG/DL 01/29/2025 7:39 AM CDT [facility] 01/29/2025 7:04 AM CDT us Devonte Kohler MD LABORATORY Final Result Performing Organization Address City/[facility]/ZIP Co de Phone Number [facility] [address] [place] [address], [place] [phone] * MAGNESIUM (01/29/2025 7:04 AM CDT) Only the most recent of9 resultswithin the time period is included. MAGNESIUM 2.4 1.6 - 2.6 MG/DL 01/29/2025 7:39 AM CDT [facility] 01/29/2025 7:04 AM CDT us Devonet Kohler MD LABORATORY Final Result Performing Organization Address [facility] de Phone Number [facility] [address] [place] [address], [place] [phone] * XR NG/FEED TUBE PLCMT FLUORO (01/28/2025 [...] 3:14 PM Narrative 01/28/2025 3:[address] PM [address] [address] [facility] [address] [place], [place] [address] Examination: XR NG/FEED TUBE PLCMT FLUORO Exam [...] Procedure Note Idris Garcia, DO - 01/28/[address] [address] Examination: XR NG/FEED TUBE PLCMT FLUORO Exam [...] 6:29 PM Narrative 01/26/2025 6:53 PM CDT [address] [address] Examination: Abdomen 1 view Exam time: 15:50 [...] Procedure Note Alfie Davey MD - 01/26/[address] [address] Examination: Abdomen 1 view Exam time: 15:50 [...] is included. 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: Ab : 1955 Requested By: NAYA GONZALEZ Order Number: [id number] Reading : Wil Rogers Measurements Intervals [place] Rate: 99 P: 18 MA: 167 QRS: -13 QRSD: 92 T: 55 QT: 332 QTc: 427 Interpretive Statements SINUS RHYTHM POSSIBLE ANTERIOR MYOCARDIAL INFARCTION , OF INDETERMINATE AGE POSSIBLE INFERIOR MYOCARDIAL INFARCTION , PROBABLY OLD Procedure Note Wil Rogers MD - 01/26/2025 [place] [address] [place] [address] Test Date: 2025-01-26 Pat Name: SCOOBY WATSON [facility] Gender: Male 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 SODIUM S/P/B 139 136 - 145 MMOL/L 01/26/2025 2:49 AM CDT [facility] POTASSIUM S/P/B 3.7 3.5 - 5.1 MMOL/L 01/26/2025 2:49 AM CDT [facility] CHLORIDE S/P/B 103 97 - 115 MMOL/L 01/26/2025 2:49 AM CDT [facility] CO2 29.7 21.0 - 32.0 MMOL/L 01/26/2025 2:49 AM CDT [facility] GLUCOSE 183(H) 74 - 106 MG/DL 01/26/2025 2:49 AM T [facility] BUN 36(H) 7 - 18 MG/DL 01/26/2025 2:49 AM CDT [facility] CREATININE S/P/B 1.33(H) 0.70 - 1.30 MG/DL 01/26/2025 2:49 AM CDT [facility] CALCIUM S/P/B 9.3 8.5 - 10.1 MG/DL 01/26/2025 2:49 AM T [facility] BILIRUBIN TOTAL S/P/B 0.4 0.2 - 1.0 MG/DL 01/26/2025 2:49 AM CDT [facility] ALKALINE PHOSPHATASE S/P/B 106 45 - 115 U/L 01/26/2025 2:49 AM T [facility] AST 27 15 - 37 U/L 01/26/2025 2:49 AM CDT [facility] ALT 22 16 - 61 U/L 01/26/2025 2:49 AM CDT [facility] TOTAL PROTEIN S/P/B 7.1 6.4 - 8.2 G/DL 01/26/2025 2:49 AM CDT [facility] ALBUMIN S/P/B 2.3(L) 3.4 - 5.0 G/DL 01/26/2025 2:49 AM CDT [facility] ANION GAP 6.3 2.0 - 10.0 MMOL/L 01/26/2025 2:49 AM T [facility] OSMOLALITY (CALC) 301 MOSM/KG 2:49 AM T [facility] Comment:REFERENCE RANGE NOT ESTABLISHED GFR ESTIMATE 58(L) >90 ML/MIN/1. 73 M2 01/26/2025 2:49 AM CDT [facility] GFR NOTES GFR REFERENCE S: 01/26/2025 2:49 AM CDT [facility] Comment: THE ESTIMATED GFR IS CALCULATED [...] CDT Naya Gonzalez MD LABORATORY Final Result [facility] [address] [place] [address], [phone] * XR CHEST PORTABLE (01/25/2025 9:53 AM [...] 10:15 AM Narrative 01/25/2025 10:17 AM CDT [facility] [address] [place], [place] [address] PROCEDURE: XR CHEST PORTABLE. 01/25/2025 9:51 AM. [...] Procedure Note Velvet Baker MD - 01/25/[address] [address] PROCEDURE: XR CHEST PORTABLE. 01/25/2025 9:51 AM. [...] 3:06 PM Narrative 01/24/2025 3:09 PM CDT [facility] [address] [place], [place] [address] Examination: CT HEAD WO CON, 01/24/2025 2:49 [...] Procedure Note Romulo Bales MD - 01/24/2025 [facility] [address] [place], [place] [address] Examination: CT HEAD WO CON, 01/24/2025 2:49 [...] Bales MD, 01/24/2025 3:06 PM Robin Sharma [employer]WORK [employer] LEAD CT Final Result * XR FEEDING TUBE PLCMENT (01/21/2025 2:55 PM CDT) Anatomical Region Laterality Modality NA Fluoroscopy 01/21/2025 2:55 PM CDT Impressions 01/22/2025 11:20 AM CDT IMPRESSION: Successful postpyloric [place] fed placement. The attending radiologist was present [...] 2:55 PM Narrative 01/22/2025 11:20 AM CDT [facility] [address] [place], [place] [address] [facility] [address] [place], [place] [address] EXAM: Nasoenteric tube placement. COMPARISONS: 01/20/2025 CT [...] Procedure Note Bryan Vogel MD - 01/22/[address] [address] [facility] [address] [place], [place] [address] EXAM: Nasoenteric tube placement. COMPARISONS: 01/20/2025 CT [...] immediate complications were noted. [facility] Total fluoroscopic time utilized was 4.5 minutes and reference air kerma82.8 mGy for this procedure. IMPRESSION: Successful postpyloric [place] fed placement. The attending radiologist was present [...] CDT Echocardiography Report Pat.Name: SCOOBY WATSON Pat.ID: [id number] .Date: 01/21/2025 Refer.: [id number] [facility] EWDPROV EWDPROV Exam Time: 10:29:00 AM Study Type:ECHO WITH CARDIAC DOPPLER COMP Height: 71 in Weight: 206 lb BSA: 2.14 m2 Age: 6 1955,69Y Sex: M BP: 128/74 HR: 70 bpm Sonogrphr: Wil Avila RDCS, RVT Pat. Stat.:Inpatient CPT - 4: 89285 Reason for Study:Stroke/TIA Procedures: 2D, M-mode, Doppler, [...] Mass 2D Value 117 g LV Mass [id number] Value 54.7 g/m2 2D Left Ventricle LVIDd [...] - 01/21/2025 Echocardiography Report Pat.Name: SCOOBY WATSON Ian Pat.ID: [id number] St.Date: 01/21/2025 Refer.: [id number] [facility] EWDPROV EWDPROV Exam Time: 10:29:00 AM Study Type:ECHO WITH CARDIAC DOPPLER COMP Height: 71 in Weight: 206 lb BSA: 2.14 m2 Age: 7 1955,69Y Sex: M BP: 128/74 HR: 70 bpm Sonogrphr: Wil Avila RDCS, RVT Pat. Stat.:Inpatient CPT - 4: 73019 Reason for Study:Stroke/TIA Procedures: 2D, M-mode, Doppler, [...] Mass 2D Value 117 g LV Mass [id number] Value 54.7 g/m2 2D Left Ventricle LVIDd [...] CHOLESTEROL 137 MG/DL 01/21/2025 4:25 AM CDT [facility] Comment:DESIRABLE: <200 TRIGLYCERIDES 137 MG/DL 01/21/2025 4:25 AM CDT [facility] Comment:<150 NORMAL HDL 38(L) >39 MG/DL 01/21/2025 4:25 AM CDT [facility] LDL (CALCULATED) 72 MG/DL 01/22/20 4:25 AM CDT [facility] Comment:<100 OPTIMAL VLDL CALCULATION 27 MG/DL 01/22/20 4:25 AM CDT [facility] Comment:REFERENCE RANGE NOT ESTABLISHED CHOL/HDL RATIO 3.6 01/21/2025 4:25 AM CDT [facility] Comment:REFERENCE RANGE NOT ESTABLISHED LDL/HDL 1.9 01/21/2025 4:25 AM CDT [facility] Comment:REFERENCE RANGE NOT ESTABLISHED NON HDL CHOLESTEROL 99 MG/DL 01/21/2025 4:25 AM CDT [facility] Comment:REFERENCE RANGE NOT ESTABLISHED 01/21/2025 3:40 AM CDT us Arianne Mcnally PA-C LABORATORY Final Resul t [facility] [address] [place] [id number], [id number] * MRI CERV SPINE WO CON (01/20/2025 [...] 7:05 AM Narrative 01/21/2025 7:15 AM CDT [place] [id number] EXAMINATION: MRI OF THE CERVICAL SPINE WITHOUT [...] and ligamentous thickening. Mild spinal canal stenosis. Lisf-cy-epiiqmkg bilateral neural foraminal stenoses. C6-7: Minimal disc bulge with facet arthropathy. No significant spinal canal stenosis. No convincing evidence of significant neural foraminal stenosis though artifact limits accurate characterization. C7-T1: No evidence of significant spinal canal or neural foraminal stenosis. Procedure Note Bryan Vogel MD - 01/21/2025 [facility] [address] [place], [place] [address] EXAMINATION: MRI OF THE CERVICAL SPINE WITHOUT [...] arthropathy andligamentous thickening. Mild spinal canal stenosis. Caoz-vd-ziasoyzfwebsvfkda neural foraminal stenoses. C6-7: Minimal disc bulge [...] report was sent to Dr Siddiqi by [employer] at 1825 hours on 01/20/2025. Referred By: ISAK CHRISTINA Interpreted By: Ryan Prasad MD, 01/20/2025 6:13 PM Narrative 01/20/2025 6:26 PM [address] [address] EXAM: MRI BRAIN WO CON DATE: 01/20/2025 [...] Procedure Note Ryan Prasad MD - 01/20/2025 [facility] [address] [place], [place] [address] EXAM: MRI BRAIN WO CON DATE: 01/20/2025 [...] report was sent to Dr Siddiqi by [employer] [id number] hours on 01/20/2025. Referred By: ISAK CHRISTINA [...] 12:33 PM Narrative 01/20/2025 1:07 PM CDT [place] [address] Examination: Cervicocerebral CTA. Exam time: 1137 hours. [...] segment again evident. The arteries of the [place] are otherwise unremarkable with no [...] Procedure Note Atilio Varela MD - 01/20/[address] [address] Examination: Cervicocerebral CTA. Exam time: 1137 hours. [...] A1 segment againevident. The arteries of the [place] are otherwise unremarkablewith no aneurysm, [...] - 36.5 SEC 01/20/2025 11:43 AM CDT [facility] 01/20/2025 11:2 4 AM CDT us Sandra Lea DO LABORATORY Final Resul t Performing Organization Address [facility] de Phone Number [facility] [address] [place] [address], [id number] * (ABNORMAL) FIBRINOGEN (01/20/2025 11:24 AM CDT) FIBRINOGEN 457(H) 200 - 393 MG/DL 01/20/2025 11:41 AM CDT [facility] 01/20/2025 11:2 4 AM CDT us Sandra Lea DO LABORATORY Final Resul t Performing Organization Address [facility] de Phone Number [facility] [address] [place] [address], [place] [phone] * (ABNORMAL) D-DIMER, QUANTITATIVE (01/20/2025 11:24 AM CDT) D-DIMER 607(H) 0 - 500 ng{FEU}/mL 01/20/2025 11:42 AM CDT [facility] EXCLUSION STATEMENT 01/20/2025 11:45 AM CDT [facility] Comment: D-Dimer values less than or [...] 01/20/2025 11:2 4 AM CDT us Sandra eLa DO LABORATORY Final Resul t Performing Organization Address [facility] Co de Phone Number [facility] [address] [place] [address], [place] [phone] * TROPONIN, QUANT (01/20/2025 11:24 AM CDT) TROPONIN I HIGH SENSITIVITY 9 0 - 78 ng/L 01/20/2025 12:00 PM CDT [facility] 01/20/2025 11:2 4 AM CDT us Sandra Lea LABORATORY Final Resul t Performing Organization Address [facility] de Phone Number [facility] [address] [place] [address], [place] [phone] * CKMB(MB FRACTION ONLY) (01/20/2025 11:22 AM CDT) CK-MB <1.0 0.5 - 3.6 NG/ML 01/20/2025 12:25 PM CDT [facility] 01/20/2025 11:2 2 AM CDT us Sandra Lea DO LABORATORY Final Resul t Performing Organization Address [facility] de Phone Number [facility] [address] [place] [address], [place] [phone] * CK (CPK) (01/20/2025 11:22 AM CDT) CPK 121 39 - 308 U/L 01/20/2025 12:25 PM CDT [facility] 01/20/2025 11:2 2 AM CDT us Sandra Lea LABORATORY Final Resul t Performing Organization Address City/[facility] Co de Phone Number [facility] [address] [place] [address], [phone] * XR CERV SPINE LAT 1V (01/19/2025 [...] 4:16 AM Narrative 01/20/2025 4:[address] [address] EXAMINATION: XR CERV SPINE LAT 1V HISTORY: [...] Procedure Note Alfie Davey MD - 01/20/[address] [address] EXAMINATION: XR CERV SPINE LAT 1V HISTORY: [...] 12.3(H) <5.7 % 01/19/2025 9:55 PM CDT [facility] ESTIMATED AVG GLUCOSE 306(H) 74 - 114 MG/DL 01/19/2025 9:55 PM CDT [facility] 01/19/2025 8:58 PM CDT Phylicia Howard NP LABORATORY Final Result [facility] [address] [place] [address], [id number] * CTA NECK (01/19/2025 8:21 PM CDT) Anatomical Region Laterality Modality Neck Computed Tomogra phy 01/19/2025 8:47 PM CDT Addenda Addendum by Maria G Gilbert MD on 01/21/2025 11:26 AM CDT [facility] [address] [place] [address] exam was performed using one [...] 8:47 PM Narrative 01/19/2025 9:11 PM [address] [address] EXAMINATION: CTA Neck Without and With Intravenous [...] abnormality. There is generalized age-appropriate atrophy with mohr-[id number]-jnowmdyc nonspecific patchy hypodensity in the periventricular and deep cerebral white matter in the partially included bilateral deep cerebral white matter, likely nonspecific chronic white matter microvascular disease. Please refer to the CT chest exam of same date regarding the intrathoracic findings. Procedure Note Maria G Gilbert MD - 01/19/[address] [address] EXAMINATION: CTA Neck Without and With Intravenous [...] osseous abnormality. There is generalizedage-appropriate atrophy with [id number] nonspecific patchyhypodensity in the periventricular and deep [...] or less likely atherosclerotic stenosis of the U8sgstdif of right anterior cerebral artery. The right [...] 8:43 PM Narrative 01/19/2025 9:17 PM CDT [place] [id number] CLINICAL INDICATION: 69-year-old male. Reason for examination: Ground-level fall with abdominal pain 01/19/2025 7:58 PM, Kwan Varela L: 100ml [id number] injected into AC, creat 0.8 from [facility]. Trauma CAT 3 transfer - Pt fall and laid on the ground for hours. known dens fx. Images from [facility] on PACS. Scanned by [employer] TECHNIQUE: CT [...] there is, portable trauma chest radiograph from [facility] at 15:48.. Outside imaging also includes CTA head and neck, CT brain and CT C-spine CT chest without contrast 12/09/2023. FROM [facility] CT chest without contrast 03/20/2023. [facility] CT abdomen and pelvis without contrast [facility] FINDINGS: CHEST: There is no pneumothorax. No [...] right and left and circumflex and [place] coronary artery calcifications which have been over [...] Procedure Note Trina Ferrera MD - 01/19/[address] [address] CLINICAL INDICATION: 69-year-old male. Reason for examination: Ground-level fall with abdominal pain 01/19/2025 7:58 PM, Kwan Varela L: 100ml [id number] injected into AC,creat 0.8 from [facility]. Trauma CAT 3 transfer - Pt fall and laid on the groundfor hours. known dens fx. Images from [facility] on PACS. Scanned by [employer] TECHNIQUE: CT [...] study there is, portable trauma chest radiographfrom [facility] at 15:48.. Outside imaging also includes CTAhead and neck, CT brain and CT C-spine CT chest without contrast 12/09/2023. FROM [facility] CT chest without contrast 03/20/2023. [facility] CT abdomen and pelvis without contrast [facility] FINDINGS: CHEST: There is no pneumothorax. 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 Advance Directives and Living Will 05/14/2018 9:17 AM 05-13-18 POA FOR HEALTHCARE * Full Code (Latest Code Status on File) Date Activated Date Inactivated Comments 01/19/2025 7:39 PM 02/02/2025 4:39 PM * Full Code Date Activated Date Inactivated Comments 03/19/2023 7:54 PM 03/23/2023 3:36 PM * Full Code Date Activated Date Inactivated Comments 05/02/2018 1:12 PM 05/02/2018 7:11 PM Care Teams Traffic Enumerator Relationship Specialty Start Date End Date Adolfo Koo MD [facility] [address] [place] [address] [place] Safety Engineer CARDIOVASCULAR DISEASE 03/24/18
--- NOTE | 2025-02-04 13:28 | ED_ITS ---
HPI - General Adult General Chief complaint: Unspecified Stated complaint: g-tube dislodged Time Seen by Provider: 02/04/25 13:09 History of Present Illness HPI narrative: This is a 69-year-old male presenting for dislodged G-tube. The G-tube was placed on January 29 at [facility]. It was displaced earlier today at an unknown time. 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 no complaints with the patient at this time. Related Data Allergies Allergy/AdvReac Type Severity Reaction Status Date / Time No Known Allergies Allergy Verified 02/04/25 15:12 Exam Narrative: APPEARANCE: No apparent distress. Head: atraumatic. EYES: EOMI, NOSE: Atraumatic NECK: Trachea midline RESPIRATORY: No increased rate of breathing, CTAB CARDIOVASCULAR: RRR, ABDOMINAL: Soft, nontender, G-tube site w/ some dried blood but no active bleeding. MUSCULOSKELETAl: No obvious deformities NEURO: Alert. Moving 4/4 extremities SKIN:: Warm, dry. Normal color PSYCHIATRIC: Normal affect Course Vital Signs Vital signs: Vital Signs Temperature 98.7 F 02/04/25 13:07 Pulse Rate 102 H 02/04/25 13:07 Respiratory Rate 16 02/04/25 13:07 Blood Pressure 114/78 02/04/25 13:07 Pulse Oximetry 93 02/04/25 13:07 Oxygen Delivery Room Air 02/04/25 13:07 Temperature 98.7 F 02/04/25 13:07 Pulse Rate 98 02/04/25 15:05 Respiratory Rate 16 02/04/25 15:05 Blood Pressure 121/81 02/04/25 15:05 Pulse Oximetry 96 02/04/25 15:05 Oxygen Delivery Room Air 02/04/25 13:07 Medical Decision Making [facility] Narrative Medical decision making narrative: -Course: 61-year-old male presenting with a dislodged G-tube. His only placed 6 days ago. The tracts not mature mode be unsafe to insert a new G-tube at this time. Case was discussed with Dr. Rocha, our GI specialist. He stated the patient needed transferred back to [facility] as he will need another G-tube placed. Patient will be transferred to [place]. Accepted by Dr. Reese. Vital Signs Vital Signs: Vital Signs Temperature 98.7 F 02/04/25 13:07 Pulse Rate 102 H 02/04/25 13:07 Respiratory Rate 16 02/04/25 13:07 Blood Pressure 114/78 02/04/25 13:07 Pulse Oximetry 93 02/04/25 13:07 Oxygen Delivery Room Air 02/04/25 13:07 Temperature 98.7 F 02/04/25 13:07 Pulse Rate 98 02/04/25 15:05 Respiratory Rate 16 02/04/25 15:05 Blood Pressure 121/81 02/04/25 15:05 Pulse Oximetry 96 02/04/25 15:05 Oxygen Delivery Room Air 02/04/25 13:07 Discharge Plan Discharge Clinical Impression: Dislodged gastrostomy tube Patient Disposition: Acute Care Hospital Condition: Stable Patient Language: Albanian Follow-up/Referrals: Augustus Stapleton MD [Primary Care Provider] -
[2025-02-04 15:05] VITALS: BP 121/81; PULSE 98; RESP 16; O2SAT 96
--- NOTE | 2025-02-04 15:53 | PC.NURSE ---
This RN provided verbal update over the phone to pt. daughter. All questions answered. Daughter provided verbal consent for pt. to be transferred to [place].
--- NOTE | 2025-02-04 16:03 | PC.NURSE ---
This RN spoke with Prachi at [facility]. Per staff member, this RN should be receiving a call within 30 minutes with a room number.
--- NOTE | 2025-02-04 17:11 | PC.NURSE ---
Pt. room number at [facility]: 428. Report given to NOEMY Velarde. All questions answered. RN phone number: [phone].
--- NOTE | 2025-02-04 18:11 | PC.NURSE ---
Attempted to call [facility] to provide update with no answer from facility.
--- NOTE | 2025-02-04 18:44 | PC.NURSE ---
Pt. daughter Shaunna called with update by this RN. Bed number given and EMS eta of 3 hours.
[2025-02-04 18:51] VITALS: BP 118/78; PULSE 111; RESP 18; O2SAT 93
--- NOTE | 2025-02-04 19:13 | PC.NURSE ---
Report received from NOEMY Houser. Assumed care of patient at this time.
[2025-02-04 19:58] VITALS: BP 116/81; PULSE 103; RESP 18; O2SAT 93
[2025-02-04 20:19] VITALS: BP 124/77; PULSE 103; RESP 17; O2SAT 93
== END 2025-02-04 20:22 | disposition short-term general hospital (02) ==
PROVIDERS: Emergency Provider Emergency Medicine; PCP Hospitalist
DX: Z43.1 Encounter for attention to gastrostomy (principal)
CPT/HCPCS: 99285